=== PATIENT | female | born 1970 | race Caucasian/White ===

== ENCOUNTER → 2017-06-07 15:13 | Outpatient (CLI) | payer OTHER, SELFPAY ==
--- NOTE | 2017-06-07 15:18 | HPBI_ITS ---
MAMMOGRAPHY - BILATERAL SCREENING REASON FOR EXAM: Female, 47 years old. Routine annual screening examination. PERTINENT HISTORY: Non-contributory. TECHNIQUE: Digital bilateral breast shon (3D mammographic acquisition) in the CC and MLO projections. 2-D mediolateral oblique (MLO) and craniocaudad (CC) views of both breasts were obtained. CAD: Full Field Digital Mammography with Computer Added Detection was performed. COMPARISON: Comparison is made with prior study dated October 15, 2015 and October 03, 2014. FINDINGS: Breast Composition: The breasts are heterogeneously dense, which may obscure small masses. Stable appearance of the left retroareolar nodular densities in keeping with cysts as seen on prior sonogram. There now is evidence of a 2.9 cm x 2.4 cm well-defined nodule in the superior retroareolar region of the right breast. Correlation with ultrasound is recommended. No other significant abnormalities are identified. HPBI/SCREENING MAMM (CAD), BILAT IMPRESSION: New nodular density in the right breast as described. Correlation with ultrasound is recommended. ASSESSMENT CATEGORY: BIRADS Category 0: Incomplete. Need additional imaging evaluation. A letter regarding these results will be sent to the patient by the facility within 30 days. Approximately 10% of breast cancers are not detected by mammography. A normal mammogram should not delay biopsy of a clinically suspicious abnormality. [id number] Electronically Signed: Garrett Reed MD at 16:04 EST Tel [phone], Service support ,
== END ==
PROVIDERS: Family Provider Family Medicine; PCP Family Medicine; Visit Provider Nurse Practitioner Women's Health
DX: Z12.31 Encounter for screening mammogram for malignant neoplasm of breast (principal)
CPT/HCPCS: 77063; 77067

== ENCOUNTER → 2017-06-10 11:00 | Outpatient (CLI) | payer OTHER, SELFPAY ==
--- NOTE | 2017-06-10 11:03 | US_ITS ---
STUDY: ULTRASOUND BREAST - RIGHT REASON FOR EXAM: Female, 47 years old. Abnormal screening mammogram. TECHNIQUE: Axial and longitudinal images of the RIGHT breast were performed with a high resolution ultrasound transducer. COMPARISON: Comparison is made with prior study dated June 07, 2017. FINDINGS: RIGHT Breast: 2 cysts are seen. The larger measures 2.7 cm x 2.2 cm x 1.4 cm. The smaller cyst measures 1.4 cm x 1.2 cm x 0.9 cm. US/Breast Limited Unilateral IMPRESSION: The mammographic abnormality corresponds to 2 small adjacent cysts in the retroareolar region. ASSESSMENT CATEGORY: BIRADS Category 2: Benign. A letter regarding these results will be sent to the patient by the facility within 30 days. Electronically Signed: Garrett Reed MD at 12:38 EST Tel [phone], Service support ,
== END ==
PROVIDERS: Family Provider Family Medicine; PCP Family Medicine; Visit Provider Nurse Practitioner Women's Health
DX: N63.41 Unspecified lump in right breast, subareolar (principal)
CPT/HCPCS: 76642

== ENCOUNTER 2017-12-19 12:48 | Observation (INO) | payer OTHER, SELFPAY ==
[2017-12-19] VITALS (21 sets, daily range): BP systolic 105–175; BP diastolic 61–104; PULSE 63–100; RESP 12–19; TEMP 36.6–37; O2SAT 97–100; BMI 20.9; BMI 27.3
--- NOTE | 2017-12-19 12:53 | EKG12_ITS ---
Test Reason : CP Blood Pressure : / mmHG Vent. Rate : 066 BPM Atrial Rate : 066 BPM P-R Int : 154 ms QRS Dur : 092 ms QT Int : 384 ms P-R-T Axes : 043 -02 -08 degrees QTc Int : 402 ms Normal sinus rhythm with sinus arrhythmia Incomplete right bundle branch block T wave abnormality, consider inferior ischemia Abnormal ECG Confirmed by ANDRES LAFLEUR, MAGDALENA ([id number]), photo editor KIERSTEN SECOBAR ([id number]) on 12/21/2017 1:38:47 PM Referred By: LUBNA Confirmed By:MAGDALENA CAMPOS MD
--- NOTE | 2017-12-19 12:55 | RAD_ITS ---
STUDY: X-RAY CHEST REASON FOR EXAM: Female, 47 years old. Chest pain and shortness of breath. TECHNIQUE: Single AP portable view of the chest. COMPARISON: Comparison is made with prior study dated January 23, 2016. FINDINGS: EKG electrodes are seen. The lungs are clear and expanded. There is no demonstrated pleural abnormality. Normal size heart. Normal mediastinum and parul. Normal visualized pulmonary arteries. Normal visualized aortic arch and descending thoracic aorta. Normal visualized thoracic spine. Normal visualized ribs, clavicles, and shoulders. There is no demonstrated abnormality of the visualized soft tissue structures of the upper abdomen. RAD/Chest 1 View (Portable) IMPRESSION: Normal x-ray examination of the chest. Electronically Signed: Garrett Reed MD at 13:27 EDT Tel [phone], Service support ,
[2017-12-19] MEDS: Aspirin 81 MG TAB.CHEW 324 MG PO (13:01)
--- NOTE | 2017-12-19 13:14 | ED.VISSUMM ---
- ER Visit Summary Date of Service: 12/19/17 Chief Complaint: Epigastric and chest pain History of Present Illness: The patient is a 47 F history of ulcerative colitis. Prior cholecystectomy. Patient states the last 2 weeks she has had intermittent chest pain. Associated when she works out doing cross [place]. Starts in epigastric lower chest region radiates up her chest at times in her jaw back and both upper extremities. At times associated with nausea and breath. No prior history of DVT nor PE. No leg pain or swelling. No recent travel, surgery, legs swelling nor hemoptysis. Significant family history of cardiac disease in both her parents and relatives. She has never had a stress test or heart catheterization. Physical Examination: Middle-aged female vital signs are stable blood pressure elevated 175/104. Pulse ox 90% on 2 L no hypoxia. H EENT exam unremarkable neck nontender. Lungs clear to auscultation bilaterally. Heart regular rhythm no murmur. Chest wall nontender. Abdomen soft nontender. Normal bowel sounds no peritoneal signs. Both the epigastric and right upper quadrant completely nontender. She is moving all 4 extremities. They are neurovascularly intact. Calves are nontender without edema or cords. Equal symmetrical radial pulses. 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 Back nontender. Neurologic exam normal. No focal motor deficits. Test Results: Patient will undergo cardiac workup. Initial EKG is a sinus rhythm rate is [address]-T wave changes in the anterior inferior leads with mild depression and T-wave inversion. This is change from prior EKG from 2016. Normal. BMP unremarkable other than slightly low potassium at 3.1. Chest x-ray showed normal cardiac silhouette and mediastinum. Troponin was normal. Repeat EKG was performed after sublingual nitroglycerin it resolved her pain. The inverted T-wave in leads III had normalized. Emergency Department Course and Treatment: Patient's history is concerning for this being underlying cardiac disease with her family history and the way she describes it with exertion. She will be given aspirin and sublingual nitroglycerin. He does have concerning EKG findings in the inferior leads. She will be admitted. I spoke both to Dr. Bry Pelaez and Dr. Jamil Null of cardiology. Both were in the ER evaluating the patient. She will be anticoagulated on Plavix and taken to the [facility]. Treatment Plan: For cardiac catheterization. Disposition: Admission Impression: Acute chest pain with abnormal inferior EKG changes. This note was generated with Sapiens dictation software. It may contain incorrect words, spelling, and punctuation that were not noted in review of the chart prior to signing ED Disposition - Plan for ED Patient: Chief Complaint: Chest Pain
--- NOTE | 2017-12-19 13:17 | ED.DCSUM_ITS ---
- ER Visit Summary Date of Service: 12/19/17 Chief Complaint: Epigastric and chest pain History of Present Illness: The patient is a 47 F history of ulcerative colitis. Prior cholecystectomy. Patient states the last 2 weeks she has had intermittent chest pain. Associated when she works out doing cross [employer]. Starts in epigastric lower chest region radiates up her chest at times in her jaw back and both upper extremities. At times associated with nausea and breath. No prior history of DVT nor PE. No leg pain or swelling. No recent travel, surgery, legs swelling nor hemoptysis. Significant family history of cardiac disease in both her parents and relatives. She has never had a stress test or heart catheterization. Physical Examination: Middle-aged female vital signs are stable blood pressure elevated 175/104. Pulse ox 90% on 2 L no hypoxia. H EENT exam unremarkable neck nontender. Lungs clear to auscultation bilaterally. Heart regular rhythm no murmur. Chest wall nontender. Abdomen soft nontender. Normal bowel sounds no peritoneal signs. Both the epigastric and right upper quadrant completely nontender. She is moving all 4 extremities. They are neurovascularly intact. Calves are nontender without edema or cords. Equal symmetrical radial pulses. Normal fixed income analyst strength. Back nontender. Neurologic exam normal. No focal motor deficits. Test Results: Patient will undergo cardiac workup. Initial EKG is a sinus rhythm rate is [address]-T wave changes in the anterior inferior leads with mild depression and T-wave inversion. This is change from prior EKG from 2016. Normal. BMP unremarkable other than slightly low potassium at 3.1. Chest x- ray showed normal cardiac silhouette and mediastinum. Troponin was normal. Repeat EKG was performed after sublingual nitroglycerin it resolved her pain. The inverted T-wave in leads III had normalized. Emergency Department Course and Treatment: Patient's history is concerning for this being underlying cardiac disease with her family history and the way she describes it with exertion. She will be given aspirin and sublingual nitroglycerin. He does have concerning EKG findings in the inferior leads. She will be admitted. I spoke both to Dr. Bry Pelaez and Dr. Jamli Null of cardiology. Both were in the ER evaluating the patient. She will be anticoagulated on Plavix and taken to the [facility]. Treatment Plan: For cardiac catheterization. Disposition: Admission Impression: Acute chest pain with abnormal inferior EKG changes. This note was generated with Scene[employer]ot dictation software. It may contain incorrect words, spelling, and punctuation that were not noted in review of the chart prior to signing ED Disposition - Plan for ED Patient: Chief Complaint: Chest Pain
[2017-12-19 13:24] LABS: Absolute Lymphocyte Count 0.86 X10^3/ul (0.83-4.51); Absolute Neutrophil Count 3.6 X10^3/uL (2.0-7.7); Anion Gap 9 (5-15); BUN 9 mg/dL (7-18); BUN/Creat Ratio 10.2 RATIO (10-20); Basophil# 0.01 X10^3/uL; Basophil% 0.2 % (0-1); Chloride 105 mmol/L (98-107); Creatinine, Serum 0.88 mg/dL (0.55-1.02); EST Glomerular Filtration Rate 73 mL/min (>60); Eosinophil# 0.06 X10^3/uL; Eosinophils% 1.2 % (0-5); Est Glom Filt Rate - Afr Amer 88 mL/min (>60); Estimated Creatinine Clearance 84.84 ml/min; Glucose 90 mg/dL (74-106); Hematocrit 43.3 % (37-47); Hemoglobin 14.6 g/dl (12.0-15.0); Lymphocyte # 0.86 X10^3/ul (4.0); Lymphocyte % 16.9 % (19-41); Mean Corp Hgb Conc 33.7 g/gl (32-36); Mean Corpuscular Hgb 32.9 pg (27.0-32.0); Mean Corpuscular Volume 97.5 fL (81-99); Mean Platelet Vol. 9.1 fl (6.2-12.0); Monocyte# 0.52 X10^3/uL; Monocyte% 10.2 % (0-10); Neutrophil # 3.62 X10^3/uL (2.7-7.7); Neutrophil % 71.3 % (47-70); Platelet Count 282 K/mm3 (150-450); Potassium 3.1 mmol/L (3.5-5.1); RBC Distribution Width CV 12.8 % (11.6-14.6); RBC Distribution Width SD 45.7 fl (35.1-43.9); Red Blood Count 4.44 M/mm3 (4.2-5.4); Sodium Level 140 mmol/L (136-145); White Blood Count 5.1 K/mm3 (4.4-11.0)
[2017-12-19 13:25] LABS: POSITIVE COUNT NO; POSITIVE DIFFERENTIAL NO; POSITIVE MORPHOLOGY NO
--- NOTE | 2017-12-19 13:30 | EKG12_ITS ---
Test Reason : REPEAT POST NITRO Blood Pressure : / mmHG Vent. Rate : 092 BPM Atrial Rate : 092 BPM P-R Int : 156 ms QRS Dur : 088 ms QT Int : 362 ms P-R-T Axes : 041 -17 029 degrees QTc Int : 447 ms Normal sinus rhythm Minimal voltage criteria for LVH, may be normal variant Borderline ECG Confirmed by ANDRES LAFLEUR, MAGDALENA ([id number]), newspaper editor managing KIERSTEN ESCOBAR ([id number]) on 12/21/2017 1:39:03 PM Referred By: LUBNA Confirmed By:MAGDALENA CAMPOS MD
[2017-12-19] MEDS: Nitroglycerin Oint 1 INCH PACKET TRANSDERM. (14:07)
[2017-12-19] MEDS: Acetaminophen 500 MG Tablet 1000 MG PO (14:10)
--- NOTE | 2017-12-19 14:51 | PCM.CONS.C ---
Reason for Consult Date of Consultation: 12/19/17 Reason for Consultation: Chest pain. History of Present Illness: The patient is a 47 year old F with no previous cardiac history who presented to the emergency room today after she got concerned about the chest discomfort that she has been having over the previous 2 weeks. She says that she has had intermittent chest tightness with occasional radiation to her jaw and left arm. This has happened on at least 2 occasions when she has been exercising on [employer]. She has also on occasion taken an antacid but with no significant improvement. This morning while at work she experienced some of the discomfort had her blood pressure checked and it was noted to be elevated. In addition she was also noted to be flushed. She presented to the emergency room and had an EKG done which was noted to be abnormal she was given sublingual nitroglycerin with a repeat EKG and the EKG had normalized. In addition she was noted to be hypertensive in the ER. She has had no dizziness or diaphoresis no near syncope or syncope no palpitations. Currently she is pain-free. She has not been under any tremendous amount of stress recently. She was scheduled to see me in the office on Tuesday due to the chest discomfort that she had been experiencing. [] Past Medical History Allergies/Adverse Reactions: Allergies Sulfa (Sulfonamide Antibiotics) Allergy (Verified 04/20/17 15:06) Other tramadol HCl [From [facility]] Adverse Reaction (Verified 04/20/17 15:06) Other Home Medications: Ambulatory Orders Medication Instructions Recorded Azathioprine [Imuran] 150 mg PO DAILY@0800 12/19/17 Omeprazole [Prilosec] 20 mg PO DAILY 12/19/17 Surgical History: cholecystectomy Smoking Status: Never smoker Alcohol: Rare Drugs: None Review of Systems - Review of Systems General: Denies: Fever, Night Sweats, Fatigue Cardiovascular: Reports: Chest Discomfort, Chest Discomfort with Exertion, Chest Tightness. Denies: Shortness of Breath, Orthopnea, PND, Peripheral Edema, Palpitations, Lightheadedness, Dizziness, Near Syncope, Syncope Respiratory: Denies: Cough, Sputum Production, Hemoptysis Gastrointestinal: Denies: Hematemesis, Hematochezia, Melena Genitourinary: Denies: Dysuria, Hematuria Skin: Denies: Rash Subjectve: Pleasant lady in no apparent distress Objective: Vital Signs Temp Pulse Resp BP Pulse Ox 97.9 F 90 14 120/97 H 98 12/19/17 12:49 12/19/17 14:07 12/19/17 12:49 12/19/17 14:07 12/19/17 13:00 Oxygen Flow Rate (L/min) 2 Oxygen Delivery Method Nasal Cannula Weight: 149 lb 14.629 oz Body Mass Index (BMI) 20.9 General: Awake, Alert, Oriented x 3 HEENT: PERRL, EOMI, Sclera Non Icteric Neck: Supple, Good ROM, No Lymph Node Enlargement Lungs: Clear to auscultation Cardiovascular: Regular Rhythm, Normal S1, Normal S2, No Murmurs, No Rubs, No Gallops Vascular: No Carotid Bruits, Normal Femoral Pulses, Normal Radial Pulses, Normal Dorsalis Pedal Pulse, Normal Posterior Tibial Pulses Abdomen: Bowel Sounds Present, Soft, Non Tender, No HSM, No Organomegaly Extremities: No Cyanosis, No Clubbing, No edema Neurological: No Focal Motor or Sensory Deficit 12/19/17 12:30: WBC 5.1, RBC 4.44, Hgb 14.6, Hct 43.3, MCV 97.5, MCH 32.9 H, MCHC 33.7, RDW 12.8, RDW Differential 45.7 H, Plt Count 282, MPV 9.1, Immature Gran % (Auto) 0.200, Neut % (Auto) 71.3 H, Lymph % (Auto) 16.9 L, Dewey % (Auto) 10.2 H, Eos % (Auto) 1.2, Baso % (Auto) 0.2, Absolute Neuts (auto) 3.6, Total Counted Not Reportable 12/19/17 12:30: Sodium 140, Potassium 3.1 L, Chloride 105, Carbon Dioxide 26.0, Anion Gap 9, BUN 9, Creatinine 0.88, Est GFR (MDRD) Af Amer 88, Est GFR (MDRD) Non-Af 73, BUN/Creatinine Ratio 10.2, Glucose 90, Calcium 9.0, Troponin I < 0.015 Rhythm: EKG: Normal sinus rhythm with T-wave inversions noted in lead III and aVF, followed by an EKG demonstrating normal sinus rhythm with no acute changes. Assessment/Plan 1. Chest pain/new onset angina Patient presents with chest pain which is concerning for angina. This has happened with exertion and also with rest. Even though there have been periods of hypertension associated with his the EKG changes are rather concerning. She does not have any risk factors other than her family history. Due to the above findings I would recommend that the patient be further evaluated preferably with a cardiac catheterization rather than a stress test. The risk benefits and alternatives have been explained to her and her they understand and agreed to proceed. I would recommend the following. Aspirin 325 mg Ticagrelor 180 mg Will recommend early invasive approach to the above and depending on the findings further recommendations will be made. Thank you for allowing me to participate in the care of your patient. Please don't hesitate to call if any issues arise
--- NOTE | 2017-12-19 14:54 | NURSING ---
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
--- NOTE | 2017-12-19 14:55 | CON.PCM_ITS ---
Reason for Consult Date of Consultation: 12/19/17 Reason for Consultation: Chest pain. History of Present Illness: The patient is a 47 year old F with no previous cardiac history who presented to the emergency room today after she got concerned about the chest discomfort that she has been having over the previous 2 weeks. She says that she has had intermittent chest tightness with occasional radiation to her jaw and left arm. This has happened on at least 2 occasions when she has been exercising on [employer]. She has also on occasion taken an antacid but with no significant improvement. This morning while at work she experienced some of the discomfort had her blood pressure checked and it was noted to be elevated. In addition she was also noted to be flushed. She presented to the emergency room and had an EKG done which was noted to be abnormal she was given sublingual nitroglycerin with a repeat EKG and the EKG had normalized. In addition she was noted to be hypertensive in the ER. She has had no dizziness or diaphoresis no near syncope or syncope no palpitations. Currently she is pain- free. She has not been under any tremendous amount of stress recently. She was scheduled to see me in the office on Tuesday due to the chest discomfort that she had been experiencing. [] Past Medical History Allergies/Adverse Reactions: Allergies Sulfa (Sulfonamide Antibiotics) Allergy (Verified 04/20/17 15:06) Other tramadol HCl [From [facility]] Adverse Reaction (Verified 04/20/17 15:06) Other Home Medications: Ambulatory Orders Medication Instructions Recorded Azathioprine [Imuran] 150 mg PO DAILY@0800 12/19/17 Omeprazole [Prilosec] 20 mg PO DAILY 12/19/17 Surgical History: cholecystectomy Smoking Status: Never smoker Alcohol: Rare Drugs: None Review of Systems - Review of Systems General: Denies: Fever, Night Sweats, Fatigue Cardiovascular: Reports: Chest Discomfort, Chest Discomfort with Exertion, Chest Tightness. Denies: Shortness of Breath, Orthopnea, PND, Peripheral Edema , Palpitations, Lightheadedness, Dizziness, Near Syncope, Syncope Respiratory: Denies: Cough, Sputum Production, Hemoptysis Gastrointestinal: Denies: Hematemesis, Hematochezia, Melena Genitourinary: Denies: Dysuria, Hematuria Skin: Denies: Rash Subjectve: Pleasant lady in no apparent distress Objective: Vital Signs Temp Pulse Resp BP Pulse Ox 97.9 F 90 14 120/97 H 98 12/19/17 12:49 12/19/17 14:07 12/19/17 12:49 12/19/17 14:07 12/19/17 13:00 Oxygen Flow Rate (L/min) 2 Oxygen Delivery Method Nasal Cannula Weight: 149 lb 14.629 oz Body Mass Index (BMI) 20.9 General: Awake, Alert, Oriented x 3 HEENT: PERRL, EOMI, Sclera Non Icteric Neck: Supple, Good ROM, No Lymph Node Enlargement Lungs: Clear to auscultation Cardiovascular: Regular Rhythm, Normal S1, Normal S2, No Murmurs, No Rubs, No Gallops Vascular: No Carotid Bruits, Normal Femoral Pulses, Normal Radial Pulses, Normal Dorsalis Pedal Pulse, Normal Posterior Tibial Pulses Abdomen: Bowel Sounds Present, Soft, Non Tender, No HSM, No Organomegaly Extremities: No Cyanosis, No Clubbing, No edema Neurological: No Focal Motor or Sensory Deficit 12/19/17 12:30: WBC 5.1, RBC 4.44, Hgb 14.6, Hct 43.3, MCV 97.5, MCH 32.9 H, MCHC 33.7, RDW 12.8, RDW Differential 45.7 H, Plt Count 282, MPV 9.1, Immature Gran % (Auto) 0.200, Neut % (Auto) 71.3 H, Lymph % (Auto) 16.9 L, Cedar % (Auto) 10.2 H, Eos % (Auto) 1.2, Baso % (Auto) 0.2, Absolute Neuts (auto) 3.6, Total Counted Not Reportable 12/19/17 12:30: Sodium 140, Potassium 3.1 L, Chloride 105, Carbon Dioxide 26.0, Anion Gap 9, BUN 9, Creatinine 0.88, Est GFR (MDRD) Af Amer 88, Est GFR (MDRD) Non-Af 73, BUN/Creatinine Ratio 10.2, Glucose 90, Calcium 9.0, Troponin I < 0.015 Rhythm: EKG: Normal sinus rhythm with T-wave inversions noted in lead III and aVF, followed by an EKG demonstrating normal sinus rhythm with no acute changes. Assessment/Plan 1. Chest pain/new onset angina Patient presents with chest pain which is concerning for angina. This has happened with exertion and also with rest. Even though there have been periods of hypertension associated with his the EKG changes are rather concerning. She does not have any risk factors other than her family history. Due to the above findings I would recommend that the patient be further evaluated preferably with a cardiac catheterization rather than a stress test. The risk benefits and alternatives have been explained to her and her they understand and agreed to proceed. I would recommend the following. * Aspirin 325 mg * Ticagrelor 180 mg * Will recommend early invasive approach to the above and depending on the findings further recommendations will be made. * * Thank you for allowing me to participate in the care of your patient. Please don't hesitate to call if any issues arise
--- NOTE | 2017-12-19 15:10 | CASEMGMT ---
According to [facility] website, the following are in-network tertiary facilities: [facility], [facility], [facility], [facility], [facility], [facility], [facility], [facility], and . Ana CLOUD CM
[2017-12-19 15:17] LABS: Internal QC Validated? YES +Cl - CLEAR BKGD; Pregnancy, Urine Negative Negative
--- NOTE | 2017-12-19 15:43 | CL.D_ITS ---
Patient Name: ABDIEL RICHARDSON Study Date: 12/19/2017 Performing: Bry Pelaez MD Ht: 70.86 inches 180 cm : 1970 Wt: 149.91 lbs 68 kg Age: 47 Gender: female BSA: 1.86 PROCEDURE(S) PERFORMED [id number]/COR/LV [id number] W OR WO PTCA, SINGLE CORONARY ARTERY CLINICAL PROFILE AND INDICATIONS Indications: ACS <= 24 hrs Heart Failure: None Stress/Imaging Stress/Image Study Performed: No Angina Classification Anginal Classification w/in 2 Weeks: CCS III CAD Presentations: Unstable angina. 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 Left circumflex artery with proximal 40% stenosis. RECOMMENDATIONS Referred for immediate PCI DESCRIPTION OF PROCEDURE The patient arrived to the procedure lab. The risks and benefits of the procedure as well as a full d escription of our services here and current unavailability of surgical backup were fully explained to the patient and/or their significant other prior to the catheterization. The Timeout was completed, verifying the correct patient and procedure. The patient's procedural site was prepped and draped in the usual fashion. Local anesthetic was given subcutaneously to right groin region with Lidocaine 2%. Using a modified Seldinger technique, arterial access was obtained via the right femoral artery, a 5 Fr sheath was inserted. Left Coronary Artery selective angiography was performed in multiple views u sing a 5 Fr. JL4 catheter. Right Coronary Artery selective angiography was then performed in multiple views using a 5 Fr. 3DRC (Ian) catheter. Left Ventriculography was performed in MANRIQUEZ projection using a 5 Fr. Pigtail catheter. CORONARY ANGIOGRAPHY DOMINANCE: Right Dominant LEFT HEART ASSESSMENT Left Ventricular Ejection Fraction: by LV Gram 60 % Normal LV wall motion Normal Left Ventricular systolic function LEFT MAIN: Angiographically normal LEFT ANTERIOR DECENDING ARTERY: MID LAD: 90 % Stenosis, Moderate luminal irregularities up to 50% CIRCUMFLEX ARTERY: PROX CIRC: 40 % Stenosis RIGHT CORONARY ARTERY: No significant disease noted COMPLICATIONS PROCEDURE MEDICATIONS Versed 1 mg IV Fentanyl 50 mcg IV Fentanyl 25 mcg IV Fentanyl 25 mcg IV Oxygen: 2 L/min via nasal cannula Brilinta 180 mg PO @ 12/19/2017 15:05:04 Heparin 6000 unit(s) IV 12/19/2017 15:35:06 Nitro 200 mcg IC 12/19/2017 15:37:18 Nitro 200 mcg IC 12/19/2017 15:37:18 Potassium Chloride 40 mEq PO 12/19/2017 15:13:20 SUMMARY OF HEMODYNAMIC DATA Time AIR REST ECG 15:04:22 AO 136/89 (110) SA 15:18:00 LV 134/6, 8 15:24:00 LV 160/-13, 25 15:25:01 LVp 153/-11, 26 15:25:10 AOp 161/89 (121) 15:25:15 Signed By Bry Pelaez MD On 12/19/2017 15:43:58 Signed By Bry Pelaez MD On 12/19/2017 15:43:23 Bry Pelaez MD
--- NOTE | 2017-12-19 16:20 | CL.I_ITS ---
Patient Name: ABDIEL RICHARDSON Study Date: 12/19/2017 Performing: Pop Null MD Ht: 70.86 inches 180 cm : 1970 Wt: 149.91 lbs 68 kg Age: 47 Gender: female BSA: 1.86 PROCEDURE(S) PERFORMED PM81-AAS W OR WO PTCA, SINGLE CORONARY ARTERY CLINICAL PROFILE AND CO-MORBIDITIES Indications: ACS <= 24 hrs, ACS <= 24 hrs, Worsening Angina, Suspected CAD Heart Failure: None Stress/Imaging Stress/Image Study Performed: No Stress/Image Study Performed: No Angina Classification Anginal Classification w/in 2 Weeks: CCS III CAD Presentations: Unstable angina. Unstable angina. Comorbidities/Risk Factors: Hypertension Dyslipidemia Family History of Premature CAD CONCLUSIONS Successful PTCA/JAMIE of the of mid LAD with a 2.25 x 38 Promus Synergy, post dilated in the mid/prox p ortion with a 2.5 and 3.0 mm NC balloon; 85%-->0%, no dissection or encroachment into LCX or DIAG#3. RECOMMENDATIONS Highly recommend quitting all tobacco products Follow up with primary tmr teacher Risk factor modification ASA Indefinitley Routine post interventional care Refer for Outpatient Cardiac Rehab Manual sheath removal per protocol Follow up with Dr. Latanya Valdes for at least 12 months If pt develops lower GI bleeding despite maximal medical therapy, would prefer an minimum of 6 months of DAPT due to length and small diameter of Promus stent. Manual sheath removal due to thin size. DESCRIPTION OF PROCEDURE The patient arrived to the procedure lab. The risks and benefits of the procedure as well as a full d escription of our services here and current unavailability of surgical backup were fully explained to the patient and/or their significant other prior to the catheterization. The Timeout was completed, verifying the correct patient and procedure. The patient's procedural site was prepped and draped in the usual fashion. Local anesthetic was given subcutaneously to right groin region with Lidocaine 2% Using a modified Seldinger technique,arterial access was obtained via the right femoral artery, a 5Fr sheath was inserted. Left Coronary Artery selective angiography was performed in multiple views usin g a 5 Fr. JL4 catheter. Right Coronary Artery selective angiography was then performed in multiple vi ews using a 5 Fr. 3DRC (Ian) catheter. Left Ventriculography was performed in MANRIQUEZ projection usi ng a 5 Fr. Pigtail catheter.The images were reviewed and options discussed. A decision was then made to proceed with an Intervention, IVUS or other adjunct procedure. Arterial sheath was exchanged for a 6 Fr Sheath. EBU 3.5 Guide catheter was inserted and engaged into the LCA. BMW Guide wire was advanced to the LAD. 2.0 x 12 Emerge Balloon catheter was advanced acros s lesion in the LAD, mid. PTCA balloon inflated at 8 atms for 11 secs. PTCA balloon inflated at 8 arianne s for 8 secs. PTCA balloon inflated at 8 atms for 9 secs. PTCA balloon inflated at 10 atms for 7 secs . Angiogram performed post balloon dilatation. 2.25 x 38 Synergy Drug Eluting stent was advanced acro ss the lesion in the LAD, mid. Post stent, balloon catheter was inserted 2.5 x 12 NC Emerge PTCA ball oon inflated at 12 atms for 10 secs. PTCA balloon inflated at 12 atms for 8 secs. PTCA balloon inflat ed at 14 atms for 10 secs. Angiogram performed post stent deployment. Post stent, balloon catheter wa s inserted 3.0 x 8 NC Emerge PTCA balloon inflated at 8 atms for 9 secs. PTCA balloon inflated at 12 atms for 8 secs. PTCA balloon inflated at 12 atms for 8 secs. PTCA balloon inflated at 14 atms for 10 secs. Angiogram performed post stent deployment. PTCA balloon inflated at 12 atms for 8 secs. Angiog janneth performed post stent deployment. The arterial sheath was sutured in place and capped INTERVENTION INFORMATION LESION SITE: LAD (Mid) Lesion Complexity: High/C, lesion at bifurcation: Yes, thrombus present: No, culprit lesion: Yes, les ion length: 38 mm Pre Stenosis: 85 % Pre intervention AQUILINO flow: 3 PROCEDURE: Drug Eluting Stent with pre and post dilatation Post Stenosis: 0 % Post intervention AQUILINO flow: 3 Lesion Devices: Phillips .014 BMW [place] Straight 190cm Tyler Sci EMERGE MR 2.00x12 BALLOON Medtronic 6 Fr EBU3.5 100cm Guide Catheter Tyler Sci Synergy MR JAMIE 2.25x38 Tyler Sci NC EMERGE MR 2.50x12 BALLOON Tyler Sci NC EMERGE MR 3.00x08 BALLOON COMPLICATIONS No Complications PROCEDURE MEDICATIONS Versed 1 mg IV Fentanyl 50 mcg IV Fentanyl 25 mcg IV Fentanyl 25 mcg IV Oxygen: 2 L/min via nasal cannula Brilinta 180 mg PO @ 12/19/2017 15:05:04 Heparin 6000 unit(s) IV 12/19/2017 15:35:06 Nitro 200 mcg IC 12/19/2017 15:37:18 Nitro 200 mcg IC 12/19/2017 15:37:18 Nitro 200 mcg IC 12/19/2017 15:41:46 Nitro Paste 1 in 12/19/2017 16:07:00 Potassium Chloride 40 mEq PO 12/19/2017 15:13:20 IV Fluids: .9 NaCl increased to wide open ml/hr 12/19/2017 15:31:46 IV Fluids: .9 NaCl decreased to kvo ml/hr 12/19/2017 16:03:44 IV Fluids: .9 NaCl total fluids given during case was 750ml 12/19/2017 16:03:52 SUMMARY OF HEMODYNAMIC DATA Time AIR REST ECG 15:04:22 AO 136/89 (110) SA 15:18:00 LV 134/6, 8 15:24:00 LV 160/-13, 25 15:25:01 LVp 153/-11, 26 15:25:10 AOp 161/89 (121) 15:25:15 AO 134/81 (102) 15:43:43 16:10:22 Signed By Pop Null MD On 12/19/2017 16:19:26 Pop Null MD
[2017-12-19 16:51] LABS: ACT Activated Clotting Time 224 sec (74-137)
--- NOTE | 2017-12-19 16:52 | EKG12_ITS ---
Test Reason : Blood Pressure : / mmHG Vent. Rate : 071 BPM Atrial Rate : 071 BPM P-R Int : 170 ms QRS Dur : 090 ms QT Int : 400 ms P-R-T Axes : 053 001 060 degrees QTc Int : 434 ms Normal sinus rhythm Normal ECG When compared with ECG of 19-DEC-2017 16:42, MANUAL COMPARISON REQUIRED, DATA IS UNCONFIRMED Confirmed by ANDRES LAFLEUR, MAGDALENA ([id number]), editor publications KIERSTEN ESCOBAR ([id number]) on 12/21/2017 2:06:43 PM Referred By: KEY Confirmed By:MAGDALENA CAMPOS MD
[2017-12-19] MEDS: 0.9% Normal Saline 1,000 ML 150 ML IV (17:06)
[2017-12-19 17:50] LABS: ACT Activated Clotting Time 169 sec (74-137)
[2017-12-19] MEDS: Acetaminophen 325 MG Tablet 650 MG PO (19:01)
[2017-12-19] MEDS: Atorvastatin Calcium 80 MG Tablet PO (21:41)
[2017-12-19] MEDS: Carvedilol 3.125 MG TABLET PO (21:41)
[2017-12-19] MEDS: TICAGRELOR 90 MG TABLET PO (21:41)
[2017-12-19] MEDS: Temazepam 15 MG Capsule PO (21:41)
[2017-12-19 21:56] LABS: CPK Total, Creatine Kinase 70 U/L (26-192)
[2017-12-20] VITALS (12 sets, daily range): BP systolic 104–132; BP diastolic 66–81; PULSE 71–83; RESP 13–16; TEMP 36.6–36.9; O2SAT 95–100
[2017-12-20 05:27] LABS: Hematocrit 38.3 % (37-47); Hemoglobin 13.1 g/dl (12.0-15.0); Mean Corp Hgb Conc 34.2 g/gl (32-36); Mean Corpuscular Hgb 33.1 pg (27.0-32.0); Mean Corpuscular Volume 96.7 fL (81-99); Mean Platelet Vol. 8.8 fl (6.2-12.0); Platelet Count 257 K/mm3 (150-450); RBC Distribution Width CV 12.5 % (11.6-14.6); RBC Distribution Width SD 42.9 fl (35.1-43.9); Red Blood Count 3.96 M/mm3 (4.2-5.4); Scan Indicated on CBC? Y/N NO; White Blood Count 5.6 K/mm3 (4.4-11.0)
[2017-12-20 05:42] LABS: Anion Gap 9 (5-15); BUN 8 mg/dL (7-18); BUN/Creat Ratio 12.4 RATIO (10-20); Calcium,Total 8.2 mg/dL (8.5-10.1); Chloride 110 mmol/L (98-107); Cholesterol 162 mg/dL (200); Creatinine, Serum 0.65 mg/dL (0.55-1.02); EST Glomerular Filtration Rate 104 mL/min (>60); Est Glom Filt Rate - Afr Amer 126 mL/min (>60); Estimated Creatinine Clearance 80.74 ml/min; Glucose 100 mg/dL (74-106); High Density Lipoprotein 43 mg/dL; Potassium 4.2 mmol/L (3.5-5.1); Sodium Level 141 mmol/L (136-145); Triglycerides 115 mg/dL; Very Low Density Lipoprotein 23 mg/dL (5-40)
[2017-12-20] MEDS: Aspirin E.C. 81 MG Tablet PO (07:44)
--- NOTE | 2017-12-20 07:47 | PCM.DC.CCA ---
Discharge Diet: No Restrictions - You may continue your normal diet., Low fat/ Low Cholesterol Lifting Restrictions: 10 pounds and also avoid any pushing or pulling for 3 days after your test. Additional Activity Instructions:: You must have someone drive you home. Do not drive until instructed by your doctor. You must have someone stay with you all night after your test. Rest in bed or on the couch until the next morning. Limit the number of times you go up and down stairs the day of your test. Apply pressure to the puncture site if you sneeze or cough. Call your doctor if your incision/area has: Increased Pain/ Swelling, Increased Redness, Foul Smelling Discharge, Swelling at the incision site Call your doctor if you observe: Fever of 101 or Higher Change Dressing in (Days):: 1 Remove Dressing in (days):: 2 Cleanse incision/area with: Keep Dressing Clean & Dry Additional Dressing/Incision Instructions:: Keep the dressing (bandage) on until the next morning. You may then shower, but do not take a tub bath for 5 days after your test. It is normal to have some tenderness and discomfort at the puncture site. Sometimes bruising also occurs. However, if pain, numbness, or coldness occurs below the puncture site (in your leg, toes, arms or fingers) call your doctor at once. You may have a small, marble sized knot at the puncture site. This is normal. Do not rub it. It will go away in 4-6 weeks. Bleeding can occur from the area where the puncture was done. Blood may spurt or drip from the site. If blood spurts, apply pressure right away to stop bleeding and call 911. Although rare, bleeding into the tissue (hematoma) can also occur. If this happens, a large, firm area goose egg under the skin will appear. If any of these occur, lie down as flat as you can and have someone apply firm pressure to the cath site with a gauze pad or a clean washcloth for 10-15 minutes. Call 911 or go to the Emergency Department. Allergies/Adverse Reactions: Allergies Sulfa (Sulfonamide Antibiotics) Allergy (Verified 04/20/17 15:06) Other tramadol HCl [From Ultram] Adverse Reaction (Verified 04/20/17 15:06) Other Medications to take at Discharge Azathioprine [Imuran] 150 mg PO DAILY@0800 12/19/17 Omeprazole [Prilosec] 20 mg PO DAILY 12/19/17 Aspirin E.C. [Ecotrin] 81 mg PO DAILY@0800 tablet 12/20/17 Atorvastatin Calcium [Lipitor] 80 mg PO QHS tablet 12/20/17 Metoprolol(XL)Succ [Toprol Xl (Beta Edison)] 25 mg PO DAILY tablet 12/20/17 Ticagrelor [Brilinta] 90 mg PO BID tablet 12/20/17 Primary Care Physician: Kenzie Torrez DO [Primary Care Provider] - Test Results: Test results from this visit will be discussed in further detail at your follow-up appointment, if applicable. When: follow up in jacey Keri vanceиван Proposed Discharge Date: 12/20/17 Cardiac Rehabilitation Info Cardiac Rehabilitation Program Information: Cardiac Rehabilitation is important for patients like you who are recovering from a heart problem. Cardiac rehabilitation programs are recognized as integral to the continued care of the patient with coronary heart disease. The cardiac rehabilitation program is designed to optimize a patient's physical, psychological, and social functioning. Health home care nurse work in cardiac rehabilitation programs and assist you with getting the treatments you need to get stronger and healthier - like exercise, healthy eating habits, and medications. Cardiac rehabilitation has been show to help people with heart problems live longer and have better life enjoyment than people who do not go to cardiac rehabilitation. Please contact the Cardiac Rehabilitation Program at [facility] at in two weeks if you have not heard from them.
--- NOTE | 2017-12-20 07:49 | PCM.PN.CARD ---
Subjectve: Patient seen and evaluated and appears to be doing well. No chest pain and no groin discomfort. Objective: Vital Signs Temp Pulse Resp BP Pulse Ox 98.5 F 75 16 119/74 98 12/20/17 04:00 12/20/17 06:00 12/20/17 06:00 12/20/17 06:00 12/20/17 06:00 Oxygen Delivery Method Room Air Weight: 144 lb 9.972 oz Body Mass Index (BMI) 27.3 Intake and Output for Last 24 Hours 12/18/17 12/19/17 12/20/17 23:59 23:59 23:59 Intake Total 1463 / 1463 Output Total 1300 / 1300 Balance 60 163 / 163 General: Awake, Alert, Oriented x 3 HEENT: PERRL, EOMI, Sclera Non Icteric Neck: Supple, Good ROM, No Lymph Node Enlargement Lungs: Clear to auscultation Cardiovascular: Regular Rhythm, Normal S1, Normal S2, No Murmurs, No Rubs, No Gallops Vascular: No Carotid Bruits, Normal Femoral Pulses, Normal Radial Pulses, Normal Dorsalis Pedal Pulse, Normal Posterior Tibial Pulses Abdomen: Bowel Sounds Present, Soft, Non Tender, No HSM, No Organomegaly Extremities: No Cyanosis, No Clubbing, No edema Neurological: No Focal Motor or Sensory Deficit 12/20/17 05:20: Sodium 141, Potassium 4.2, Chloride 110 H, Carbon Dioxide 22.0, Anion Gap 9, BUN 8, Creatinine 0.65, Est GFR (MDRD) Af Amer 126, Est GFR (MDRD) Non-Af 104, BUN/Creatinine Ratio 12.4, Glucose 100, Calcium 8.2 L, Triglycerides 115, Cholesterol 162, LDL Cholesterol 96, VLDL Cholesterol 23, HDL Cholesterol 43 12/20/17 05:20: WBC 5.6, RBC 3.96 L, Hgb 13.1, Hct 38.3, MCV 96.7, MCH 33.1 H, MCHC 34.2, RDW 12.5, RDW Differential 42.9, Plt Count 257, MPV 8.8 Rhythm: EKG: ECHO: Stress Test: Cardiac Cath: PCI: CT Surgery: Holter monitor: EPS: PPM: CXR: Chest CT Scan: Medical Necessity - Tobacco Use Smoking Status: Never smoker Assessment/Plan 1. Chest pain. Patient presented with chest pain noted to be unstable angina and underwent a cardiac catheterization. It demonstrated a proximal high-grade left anterior descending artery lesion and mild disease noted in the circumflex artery. She successfully underwent angioplasty and stenting of the left anterior descending artery with a drug-eluting stent. Postoperatively she has been doing well. Sheath removal was that incident. EKG this morning appears to be normal sinus rhythm with no acute changes and laboratory tests are normal. Plan on discharging patient to go home on current medications. Follow-up in my office in a week. Would start cardiac rehabilitation.
[2017-12-20] MEDS: Metoprolol(XL)Succ 25 MG Tablet PO (08:46)
[2017-12-20] MEDS: TICAGRELOR 90 MG TABLET PO (08:46)
--- NOTE | 2017-12-20 10:00 | EKG12_ITS ---
Test Reason : CP Blood Pressure : / mmHG Vent. Rate : 061 BPM Atrial Rate : 061 BPM P-R Int : 158 ms QRS Dur : 088 ms QT Int : 404 ms P-R-T Axes : 039 -09 036 degrees QTc Int : 406 ms Normal sinus rhythm Normal ECG When compared with ECG of 19-DEC-2017 13:47, MANUAL COMPARISON REQUIRED, DATA IS UNCONFIRMED Confirmed by ANDRES LAFLEUR, MAGDALENA ([id number]), supervising editor news reel KIERSTEN ESCOBAR ([id number]) on 12/21/2017 2:11:05 PM Referred By: ANDRES Confirmed By:MAGDALENA CAMPOS MD
--- NOTE | 2017-12-21 08:44 | CRPHASE1 ---
Patient Data/Charges Provider Relations Specialist:: Bry Pelaez Surgeon:: Pop Null Phase II Referral:: [facility] Risk Factors/Lifestyle Family History: Family History (Last Updated 04/20/17 @ 15:08 by Maisha Gomez) Father Heart disease Mother Heart disease Laboratory Values: Cardiac Rehab Phase I Labs Triglycerides 115 mg/dL (-199) 12/20/17 05:20 Cholesterol 162 mg/dL (200) 12/20/17 05:20 LDL Cholesterol 96 mg/dL (0-130) 12/20/17 05:20 HDL Cholesterol 43 mg/dL (40-) 12/20/17 05:20 Phase I Education Given On:: [place], Nutrition, Antiplatelet medication, CHF, Smoking cessation, Diabetes - Type I, Diabetes - Type II Issues Affecting Care:: None Knowledge of Condition:: Yes - pt called at home. 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
--- NOTE | 2017-12-21 08:46 | CRPH1.INSTRU ---
General Education CAD and cardiac anatomy and function:: Not instructed Explanation of diagnoses and procedures:: Not instructed Sign/Symptoms of NV:: Not instructed Antiplatelet therapy: Not instructed Proper use of NTG-SL: Not instructed Emergency procedures and activation of EMS: Not instructed Compliance of all prescribed medications: Not instructed - pt called at home. Pt to pickk up CR book 12/23 Smoking Nicotine/Smoking Response Code:: Not instructed Dyslipidemia Dyslipidemia Response Code:: Not instructed Overweight/Obesity Patient Overweight/Obesity Risk Factors Are:: BMI Normal [24-29 & > 65 years old] Overweight/Obesity:: Not instructed Hypertension Patient Hypertension Risk Factors Are:: No documented hx of HTN Hypertension:: Not instructed Heart Disease Patient Heart Disease Risk Factors Are:: Family history of heart disease < 65 years old Heart Disease Response Code:: Patient communicates acknowledgment Diabetes Patient Diabetes Risk Factors Are:: No documented hx of diabetes Diabetes:: Not instructed Metabolic Syndrome Metabolic Syndrome Response Code:: Not instructed Sedentary Sedentary Response Code:: Not instructed
--- NOTE | 2017-12-21 08:49 | CRPH1.INST_ITS ---
General Education CAD and cardiac anatomy and function:: Not instructed Explanation of diagnoses and procedures:: Not instructed Sign/Symptoms of GA:: Not instructed Antiplatelet therapy: Not instructed Proper use of NTG-SL: Not instructed Emergency procedures and activation of EMS: Not instructed Compliance of all prescribed medications: Not instructed - pt called at home. Pt to pickk up CR book 12/23 Smoking Nicotine/Smoking Response Code:: Not instructed Dyslipidemia Dyslipidemia Response Code:: Not instructed Overweight/Obesity Patient Overweight/Obesity Risk Factors Are:: BMI Normal [24-29 & > 65 years old ] Overweight/Obesity:: Not instructed Hypertension Patient Hypertension Risk Factors Are:: No documented hx of HTN Hypertension:: Not instructed Heart Disease Patient Heart Disease Risk Factors Are:: Family history of heart disease < 65 years old Heart Disease Response Code:: Patient communicates acknowledgment Diabetes Patient Diabetes Risk Factors Are:: No documented hx of diabetes Diabetes:: Not instructed Metabolic Syndrome Metabolic Syndrome Response Code:: Not instructed Sedentary Sedentary Response Code:: Not instructed
== END 2017-12-20 09:04 | disposition home or self-care (01) ==
LOC: ED 13:08 → CLSP 14:45 → ICU 15:50
PROVIDERS: Internal Medicine Cardiovascular Disease; Admitting Provider Internal Medicine Cardiovascular Disease; Emergency Provider Emergency Medicine; Family Provider Family Medicine; PCP Family Medicine; Visit Provider Internal Medicine Cardiovascular Disease
DX: I20.0 Unstable angina (principal); R94.31 Abnormal electrocardiogram [ECG] [EKG]; K51.90 Ulcerative colitis, unspecified, without complications; Z82.49 Family history of ischemic heart disease and other diseases of the circulatory system; I10 Essential (primary) hypertension; E78.5 Hyperlipidemia, unspecified; Z79.899 Other long term (current) drug therapy
CPT/HCPCS: 71045; 80048; 80061; 81025; 82550; 84484; 85025; 85027; 85347; 92928; 93005; 93458; 96360; 96361; 99152; 99153; 99218; 99283; J7030; J7040; Q9967; A4216; C1725; C1769; C1874; C1887; C9600; G0378

== ENCOUNTER → 2018-01-06 14:22 | Outpatient (CLI) | payer OTHER, SELFPAY ==
--- NOTE | 2018-01-06 14:31 | CR.ITP_ITS ---
General Information - General Information Admitting Diagnosis: PCI w/ stent - Education/Goals Barriers to Learning: None Individual Counseling: Initial Assessment: Abnormal Cholesterol Levels, High Blood Pressure, Hypertension Cardiac Rehabilitation Goals: 1. Maintain the individual as the primary focus of care. 2. To improve the patient's quality of life. 3. Identification of cardiac risk factors and provide cardiac risk factor management. 4. Enhance the psychosocial status of the patient. 5. Reconditioning enough to allow the patient to resume customary activities. 6. Control symptoms of cardiac disease Scale for measuring improvement of personal goals: Enter appropriate number in Comments. 2 = Unchanged. 3 = Slightly Better. 4 = Moderate Improvement. 5 = Met my Goal Personal Goals: Initial Assessment: Improve management of stress and emotions, Participate in home exercise program, Improve diet and eating habits (eat healthier), Control risk factors (learn risk factor modification), Other goal: - resume crossfit exercise as before Exercise - Initial Assessment - Visit Date of Eval: 01/06/18 - Established ITP; start on 01/09/2018 Session #:: 0 - Stages of Change Stages of Change:: Action - Exercise Prescription Mode:: Treadmill, Rower, Airdyne, NuStep Angina with exercise?: No Target Heart Rate:: 129-138 - Hypertension Do any of the following apply?: Yes, Medication, Diet Resting Blood Pressure:: 98/46 - Intervention Home Exercise/Activity Goal:: Moderate Exercise 30 min/day x 5 days/wk - Patient desires to return to cross-fit exercise program. - Education Goals:: Warm-up, RPE RANDAL Scale, S/S, Safe Exercise, Self-Monitoring Nutrition - Initial Assessment - Program Goals Nutrition Program Goals: LDL <70. Total Cholesterol <200. HDL >45. Triglycerides <150. HgbA1C <7%. BMI <25 - Visit Date of Assessment:: 01/06/18 - Stages of Change Stages of Change:: Action - Diabetes Diabetes:: No Do you monitor your blood sugar at home?: No - Weight Management Height: 5 ft 1 in Weight:: 138 lb Body Fat %:: 26 - Intervention Referral to dietitian:: No Referral to Diabetic Clinic:: No Will attend diet classes:: Yes - Education Gave educational materials for:: Healthy eating Tobacco - Initial Assessment - Program Goals Tobacco Program Goals: Complete smoking cessation. Attend education classes. Improve Knowledge Test score - Stage of Change Stages of Change:: Action - Learning Barriers Learning Barriers: Ready to Learn - Family Support Do you have family support?: Yes - Tobacco Use Tobacco Use: Non-smoker Do you use smokeless tobacco?: No - Intervention Smoking Cessation Referral:: No Individual Education/Counseling:: No Education Schedule Given:: Yes - Education Gave educational material for:: Coronary artery disease, Risk factors, Sexuality, Medical compliance, Cardiac A&P, Angina signs & symptoms Psychosocial - Initial Assess - Target Goals Target Goals: Assess presence or absence of depression. Using a valid screening tool, maximizes coping skills. Positive support system - Stages of Change Stages of Change:: Action - Psychosocial Test Tool Used:: HANDS Depression Questionnaire Self-reported stress:: work stress; over last 6 months or so that has improved. - Intervention PS - Interventions: Yes Attend Stress Management Classes, Yes Uses Stress Management Skills, No Referral to Mental Health, No Referral to [facility] Case Management, No Referral to Physician - Education Gave educational materials for:: Coping techniques, Signs & symptoms of depression, Stress management, Relaxation techniques - Patient/Program Goal Preventative Medication(s):: Aspirin, SARAH inhibitor, Clopidogrel, Beta malik, Statin/lipid - Assistive Devices Assistive Devices:: None Fall Risk Assessed:: Yes Patient Health Questionnaire Initial Assessment 1. Little interest or pleasure in doing things: Not at all 2. Feeling down, depressed, or hopeless: Not at all 3. Trouble falling or staying asleep, or sleeping too much: Not at all 4. Feeling tired or having little energy: Not at all 5. Poor appetite or overeating: Not at all 6. Feeling bad about yourself -- or that you are a failure or have let yourself or your family down: Not at all 7. Trouble concentrating on things, such as reading the newspaper or watching television: Not at all 8. Moving or speaking so slowly that other people could have noticed. Or the opposite - being so fidgety or restless that you have been moving around a lot more than usual: Not at all 9. Thoughts that you would be better off , or of hurting yourself in some way: Not at all How difficult have these problems made it for you to do your work, take care of things at home, or get along with other people?: Not difficult at all Total Score: 0 DYLAN-Q SV Test - Statements CAD is a disease of the arteries in the heart: False Examples of risk factors for heart disease: True Angina is chest pain or discomfort: True The benefits of resistance training include: True Eating more meat and dairy products: False Anti-platelet medications such as aspirin are important: True The only effective way to manage stress: False An exercise warm-up slowly increases heart rate: True Prepared, processed foods usually have high sodium: True Depression is common after a heart attack: True The statin medications lower cholesterol: True To control blood pressure, lower the amount of sodium: True If someone gets chest discomfort during walking: False Transfats are partially hydrogenated vegetable oils: False Sleep apnea that is not treated increases the risk: False To control cholesterol, one should become a vegetarian: False Someone knows if he/she is exercising at the right level: True Diabetes cannot be prevented with exercise & health eating: False Stress is a large risk for heart attack: True A diet that can help lower blood pressure is rich in: True - Total Score Total Correct Responses: 19 Self-Efficacy Initial Assessment We would like to know how confident you are in doing certain activities. Please select your confidence level for:: Select your confidence level for the following using the scale 1-10 where 1 is not at all confident and 10 is totally confident. Your score is the average of all 6 responses. Fatigue: How confident are you that you can keep the fatigue caused by your disease from interfering with the things you want to do? Select Number: 10 Physical Discomfort or Pain: How confident are you that you can keep the physical discomfort or pain of your disease from interfering with the things you want to do? Select Number: 10 Emotional Distress: How confident are you that you can keep the emotional distress caused by your disease from interfering with the things you want to do? Select Number: 10 Other Symptoms or Health Problems: How confident are you that you can keep other symptoms or health problems from interfering with the things you want to do? Select Number: 10 Different Tasks and Activities: How confident are you that you can do the different tasks and activities needed to manage your health condition so as to reduce your need to see a doctor? Select Number: 10 Medication: How confident are you that you can do things other than just taking medication to reduce how much your illness affects your everyday life? Select Number: 10 Total Score:: 10 Nutrition Survey - Nutrition Survey Instructions Scoring Instructions: Scoring is as follows: Yes = 1 points. No = 0 point. Patient score that is >/=12 is considered to be at potential nutritional risk and could benefit from a referral to a registered dietitian. - Nutrition Survey Initial Have you lost >10 lbs over the past 2 months without trying?: No Are you following a special diet at home for diabetes, low fat, or low salt?: Yes Are you interested in meeting with a dietitian for help understanding your diet?: No Do you eat less than 3 meals a day?: No Do you eat fatty meats (hawkins, sausage, ribs, etc), fried foods, desserts, large amounts of salad dressings, margarine, butter, or cheese most days?: No Do you have food allergies? [Enter types in comment field]: No Do you eat in restaurants more than 3 times a week?: No Do you season food with salt, seasoning salt, or garlic salt?: No Do you used canned, boxed, frozen meals, or soups, seasoning packets?: No Total Score:: 1
--- NOTE | 2018-01-06 14:36 | CR.HP_ITS ---
CR - History & Physical - History of Present Cardiac Event Onset Date: Enter Onset Date of cardiac illnesses in Comment field below Acute Myocardial Infarction within 12 months:: Yes - 12/19/2017 PTCA or coronary stenting:: Yes - 12/19/2017 Type of Symptoms:: classic symptoms occured at work she had been experiencing at home. came to ER and symptoms resolved with Nitro as well as EKG changes resolved. - Medications Home Medications: Ambulatory Orders Medication Instructions Recorded Omeprazole [Prilosec] 20 mg PO DAILY 12/19/17 Atorvastatin Calcium [Lipitor] 80 mg PO QHS tab 12/20/17 Metoprolol(XL)Succ [Toprol Xl 25 mg PO DAILY tab 12/20/17 (Beta Edison)] Ticagrelor [Brilinta] 90 mg PO BID tab 12/20/17 aspirin 81 mg tablet,delayed 81 mg PO DAILY #90 tab 12/23/17 release aspirin 81 mg tablet,delayed 325 mg PO DAILY@0800 tab 12/23/17 release azathioprine 50 mg tablet 150 mg PO DAILY@0800 12/23/17 lisinopril 5 mg tablet 5 mg PO DAILY #90 tab 12/23/17 - Allergies Allergies/Adverse Reactions: Allergies Sulfa (Sulfonamide Antibiotics) Allergy (Verified 12/23/17 14:17) Other tramadol HCl [From [facility]] Adverse Reaction (Verified 12/23/17 14:17) Other - Sleep Disorder Evaluation Hx of Sleep Apnea: No Do you snore loudly (louder than talking or can be heard through closed doors)?: No Do you often feel tired/ fatigued/ sleepy during daytime?: No Has anyone observed you stop breathing during sleep?: No History of Hypertension (for STOP score): No STOP Results: Negative Advanced Directives - Advanced Directives Power of Research Environmental Scientist: No Living Will: No Advance Directives Information Provided: Yes Advance Directives on File: No DNR Order?:: No - MOLST See MOLST form: No Past Medical History - Past Medical Illness Medical History: Past Medical History (Last Reviewed 12/23/17 @ 14:36 by Bry Pelaez MD) Hypertension (Chronic) I10 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 (Acute) I25.119 PCI-JAMIE-Mid LAD w/ 2.25 x 38 Promus Synergy 12/19/17 History of colitis Z87.19 - Past Surgical History Surgical History: Past Surgical History (Last Reviewed 12/23/17 @ 14:36 by Bry Pelaez MD) History of coronary artery stent placement (Acute) Onset Date: 12/19/17 Z95.5 PCI-JAMIE-Mid LAD w/ 2.25 x 38 Promus Synergy 12/19/17 gallbladder surgery Surgical History: cholecystectomy - Family History Summary Family History: Family History (Last Updated 01/06/18 @ 14:35 by Regan Carcamo, HEART SURGEON, MEDICAL GRADE SHOEMAKER, BS) Father Heart disease Mother Heart disease Other grandparents history of heart disease Social History - Smoking History Smoking Status: Never smoker Hx Tobacco Use: No Hx Smoking Exposure: Yes - secondary smoking exposure as child. - Alcohol Use Alcohol Usage: Yes - occasionally; social choose mostly wine or mixed drinks. 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 Left click = Reports ([place]) Review of Present Symptoms: Reports: Dizziness/Lightheadedness - occasionally get some dizziness or lightheadedness, probably less now than before the stent., Appetite - Normal, Appetite - Special Diet - yes; low sugar super low no added sugar, low carb adn healthier carbs, cut our red meats., Sleep - Normal. Denies: Shortness of Breath at Rest, Shortness of Breath with Exertion, Angina - less and less twinges that said was normal response to stent., Fatigue, Heart Arrhythmia/Irregularities, Sexual Changes - Pain Is Patient Pain Free?: Yes Pain Location: none, back - old injury in lower back sciatic pain but nothing hasn't been able to handle. Risk Factor Assessment - Chief Complaint Chief Complaint: Patient is a 47 yr old female who presents to cardiac rehab following recent NSTEMI and PCI intervention which occured at work. She states she has been able to resume her normal activities with no symptoms at this time. - Vital Signs Temperature: 98.7 F Respiratory Rate: 14 Pulse Ox: 97 - Pulse Pulse Rate: 83 Pulse Rhythm: Regular - Hypertension How long have you been treated?: 12/19/17 Blood Pressure Sitting - Left Arm: 96/48 - Stress Stress: Work-related - last 6 months has been so much better. - Diabetes Nutrition Referral for Diabetes: No - Obesity Height: 5 ft 1 in Weight:: 138 lb Weight in Pounds: 138.0 lbs Weight Source: Standing Scale Body Mass Index (BMI): 26.0 Nutritional Referral for Obesity: No - Physical Inactivity Physical Inactivity: Reg Exercise 30 min/day, Physically demanding job - Risk Stratification Risk Guidelines: Lowest Risk: Risk Factor for Smoking, Risk Factor for Dyslipidemia, Risk Factor for Diabetes, Risk Factor for Obesity, Risk Factor for Hypertension, Risk Factor for Sedentary Lifestyle, Risk Factor for Depression - For Smoking Smoking Risk Guidelines: Smoking Low Risk: None or quit greater than 6 months ago. Smoking Moderate Risk: Smoker or quit 6 months or less ago. Smoking High Risk: Smoker - For Dyslipidemia Dyslipidemia Risk Guidelines: Low Risk: Moderate Risk: High Risk: 15-25% fat 25.1-29% fat >/= 30% fat. <7% sat fat 7-9% sat fat >9% sat fat. <150 mg chol 150-299 mg chol >/= 300 mg chol. LDL <100 LDL 100-129 LDL >/= 130. Chol/HDL ratio <5.0 Chol/HDL ratio 5.0-6.0 Chol/HDL ratio >6.0. Triglycerides <100 Triglycerides 100-149 Triglycerides >/= 150 - For Diabetes Mellitus Diabetes Risk Guidelines: Diabetes Low Risk: HgA1c <6.5% and/or FBG <120. Diabetes Moderate Risk: HgA1c 6.6-7.9% and/or FBG 120-180. Diabetes High Risk: HgA1c >/= 8% and/or FBG >180 - For Obesity/Overweight Obesity/Overweight Risk Guidelines: Obesity Low Risk: BMI <25.0. Obesity Moderate Risk: BMI 25-29.9. Obesity High Risk: BMI >/= 30.0 - For Hypertension Hypertension Risk Guidelines: Hypertension Low Risk: Systolic <120 and Diastolic <80. Hypertension Moderate Risk: Systolic 120-139 and Diastolic 80-89. Hypertension High Risk: Systolic >/= 140 and Diastolic >/= 90 - For Sedentary Lifestyle Sedentary Lifestyle Risk Guidelines: Sedentary Lifestyle Low Risk: >/= 1,500 kcal/week. Sedentary Lifestyle Moderate Risk: 700-1,499 kcal/week. Sedentary Lifestyle High Risk: < 700 kcal/week - For Depression Depression Risk Guidelines: Depression Low Risk: Not clinically depressed. Depression Moderate Risk: Mildly depressed. Depression High Risk: Clinically depressed - Family History Family History: Family History (Last Updated 01/06/18 @ 14:35 by Regan Carcamo, HEART SURGEON, MEDICAL GRADE SHOEMAKER, BS) Father Heart disease Mother Heart disease Other grandparents history of heart disease Motivation - Motivation to Participate On a scale of 1 to 10, how prepared are you to commit to attending program?: 10 What do you see as barriers to successfully being able to complete the program?: work schedule and meetings What do you see as the benefits of succesfully completing the program? In other words, what do you hope to get out of participating in the program?: being able to get back to normal routine, cross-fit exercise. Are there issues you are dealing with that will interfere with completing the program?: none Do you have a spouse or signficant other, family or friends who will help support you to complete the program?: oh yeah.
[2018-01-06 14:47] VITALS: BP 96/48; PULSE 83; RESP 14; TEMP 37.1; O2SAT 97; BMI 26.0
[2018-01-06 15:16] VITALS: BP 98/46
== END ==
PROVIDERS: Family Provider Family Medicine; PCP Family Medicine; Referring Provider Internal Medicine Cardiovascular Disease; Visit Provider Internal Medicine Cardiovascular Disease
DX: I25.119 Atherosclerotic heart disease of native coronary artery with unspecified angina pectoris (principal); I10 Essential (primary) hypertension; Z87.19 Personal history of other diseases of the digestive system; Z95.5 Presence of coronary angioplasty implant and graft; Z79.82 Long term (current) use of aspirin; Z79.899 Other long term (current) drug therapy

== ENCOUNTER 2018-01-10 07:11 | Day surgery (SDC) | payer OTHER, SELFPAY ==
[2018-01-10] VITALS (8 sets, daily range): BP systolic 90–114; BP diastolic 50–80; PULSE 80–92; RESP 14–16; TEMP 36.6–37.6; O2SAT 94–99; BMI 24.5
--- NOTE | 2018-01-10 | IMM_PTH ---
PATIENT: ABDIEL RICHARDSON LOC: EN U#:[id number] AGE/SX: 48/F ROOM: RE01/10/[address]: Dr. Jacob Tiwari MD : 1970 BED: DIS: 01/10/2018 SPEC #: [id number] RECD: 01/12/18 09:12 STATUS: JONATHAN REMima #: [id number] ADRIANNA: 01/10/18 00:[address]: Jacob Tiwari DEPT: IMMUNOHISTOCHEMISTRY RECD BY: Umm Farnsworth ENTERED: 01/12/18 09:12 SP TYPE: IMMUNO OTHR DR: Dr. Kenzie Torrez, DO Tissues: B - Stomach, NOS C - Stomach, NOS Procedures: H Pylori (initial) PHYSICIAN & INSTITUTION [place] [id number] SPECIMEN INFORMATION: Tissue Source: B - Antrum biopsy, C - Body of stomach biopsy Clinical Info: Epigastric pain Specimen Number: [id number] B & C CPT code: 05549 x2 METHODOLOGY: Deparaffinized sections of prefer/formalin-fixed tissue or PAP/DQ stained slides are incubated with monoclonal/polyclonal antibodies/oligonucleotide probes. Localization is made via biotin free immunoperoxidase method. Appropriate controls are performed and reacted as expected. Results on target cell population are indicated in the following table: RESULTS: ANTIBODY / CLONE RESULT Block B H Pylori (polyclonal) negative Block C H Pylori (polyclonal) negative These tests were developed and their performance characteristics determined by [facility]. They may not have been cleared or approved by the U.S. Food and Drug Administration. The FDA has determined that such clearance or approval is not necessary. INTERPRETATION: B. Antrum, biopsy: Negative for Helicobacter pylori organisms. C. Body of stomach, biopsy: Negative for Helicobacter pylori organisms. SJ:bethany 01/12/18
[2018-01-10 07:33] LABS: Erythrocyte Sedimentation Rate 8 mm/hr (0-20)
[2018-01-10 07:40] LABS: Absolute Neutrophil Count 4.2 X10^3/uL (2.0-7.7); Basophil# 0.02 X10^3/uL; Basophil% 0.4 % (0-1); Differential Indicated SCAN CRITERIA MET; Eosinophil# 0.32 X10^3/uL; Eosinophils% 6.3 % (0-5); Hematocrit 40.8 % (37-47); Hemoglobin 14.3 g/dl (12.0-15.0); Lymphocyte % 5.9 % (19-41); Mean Corpuscular Volume 96.9 fL (81-99); Mean Platelet Vol. 9.3 fl (6.2-12.0); Monocyte# 0.29 X10^3/uL; Monocyte% 5.7 % (0-10); Neutrophil # 4.16 X10^3/uL (2.7-7.7); Neutrophil % 81.7 % (47-70); POSITIVE COUNT NO; POSITIVE DIFFERENTIAL YES; POSITIVE MORPHOLOGY NO; Platelet Count 271 K/mm3 (150-450); RBC Distribution Width CV 12.7 % (11.6-14.6); Red Blood Count 4.21 M/mm3 (4.2-5.4); White Blood Count 5.1 K/mm3 (4.4-11.0)
[2018-01-10 07:48] LABS: ALB/GLOB Ratio 1.1 RATIO (0.9-2.4); AST(SGOT) 59 U/L (15-37); Alanine Aminotransfer ALT/SGPT 53 U/L (13-56); Albumin, Serum 4.2 g/dL (3.2-5.0); Alkaline Phosphatase 131 U/L (45-117); Anion Gap 9 (5-15); BUN 9 mg/dL (7-18); Calcium,Total 9.3 mg/dL (8.5-10.1); Chloride 103 mmol/L (98-107); Creatinine, Serum 0.82 mg/dL (0.55-1.02); EST Glomerular Filtration Rate 79 mL/min (>60); Est Glom Filt Rate - Afr Amer 96 mL/min (>60); Globulin 3.8 g/dL (2.2-4.2); Glucose 113 mg/dL (74-106); Lipase 80 U/L (73-393); Potassium 3.9 mmol/L (3.5-5.1); Sodium Level 139 mmol/L (136-145)
[2018-01-10 08:51] LABS: White Blood Cells 0 SEEN /hpf (0-5)
[2018-01-10 08:52] LABS: Color, Urine Yellow (Yellow); Glucose, Dipstick Normal (Normal); Ketone-Dipstick 5 mg/dl (Negative); Leukocyte Esterase-Dipstick 25 /ul (Negative); Nitrite-Dipstick Negative (Negative); Occult Blood-Urine 25 /ul (Negative); Protein-Dipstick 15 mg/dl (Negative); Specific Gravity, Urine 1.015 (1.002-1.030); Urine Bilirubin Dipstick Negative (Negative); Urine Clarity Sl. Cloudy (Clear); Urine Urobilinogen 1 mg/dl (Normal)
[2018-01-10 08:59] LABS: Bacteria RARE /hpf (None Seen); Mucous, Urine RARE /hpf (<or=2+); Red Blood Cells-Urine 0-5 SEEN /hpf (0-5); Squamous Epithelial Cells - UA 0-5 SEEN /hpf (5-10)
--- NOTE | 2018-01-10 11:30 | EGD_PTH ---
PATIENT: ABDIEL RICHARDSON LOC: EN U#:[id number] AGE/SX: 48/F ROOM: RE01/10/[address]: Dr. Jacob Tiwari MD : 1970 BED: DIS: 01/10/2018 SPEC #: [id number] RECD: 01/10/18 15:17 STATUS: JONATHAN YOKO #: [id number] ADRIANNA: 01/10/18 11:[address]: Jacob Tiwari DEPT: SURGICAL PATHOLOGY RECD BY: Holger Charles ENTERED: 01/11/18 10:10 SP TYPE: EGD BIOPSY OTHR DR: Dr. Kenzie Torrez DO Tissues: A - Duodenum, NOS B - Gastric mucous membrane C - Gastric mucous membrane D - Esophagus, NOS Procedures: Special Stain Group II Surgery Specimen Level IV Alcian Blue/PAS (control) HEADER OPERATION: EGD PRE-OP DIAGNOSIS: Epigastric pain TISSUE SUBMITTED: A. Duodenal biopsy, B. Antrum biopsy for H. pylori and path, C. Body of stomach biopsy, D. Distal esophagus biopsy MICROSCOPIC DIAGNOSIS A. 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 B. Antrum, biopsy: Mild gastritis. See microscopic description and comment. C. Body of stomach, biopsy: Mild gastritis. See microscopic description and comment. D. Distal esophagus, biopsy: Fragments of gastroesophageal mucosa with chronic inflammation. Intestinal metaplasia (goblet cell metaplasia) is not identified. See comment. SJ:bethany 01/12/18 COMMENT B & C. The results of immunohistochemistry for Helicobacter pylori will be reported separately ([id number]). D. Alcian blue/PAS stain with matched control is used in the evaluation of the specimen. MICROSCOPIC DESCRIPTION Slides are reviewed. B & C. The specimen shows fragments of gastric mucosa with chronic inflammatory cell infiltrates in the lamina propria consisting of lymphocytes and plasma cells, consistent with mild chronic gastritis. GROSS DESCRIPTION A - Received in fixative is one container labeled with the patient's name and designated duodenal biopsy. The specimen consists of two irregular fragments of light gann soft tissue that in aggregate measure 0.6 x 0.3 x 0.1 cm. The specimen is totally submitted in one cassette. B - Received in fixative is one container labeled with the patient's name and designated antrum biopsy for H. pylori. The specimen consists of one irregular fragment of light gann soft tissue that measures 0.5 x 0.3 x 0.1 cm. The specimen is totally submitted in one cassette. C - Received in fixative is one container labeled with the patient's name and designated body of stomach biopsy. The specimen consists of one irregular fragment of light gann soft tissue that measures 0.5 x 0.4 x 0.1 cm. The specimen is totally submitted in one cassette. D - Received in fixative is one container labeled with the patient's name and designated distal esophagus biopsy. The specimen consists of two irregular fragments of light gann soft tissue that in aggregate measure 0.5 x 0.5 x 0.1 cm. The specimen is totally submitted in one cassette. / SJ:rg 01/11/18 TC:3 [facility]: [id number] x4, [id number]
--- NOTE | 2018-01-10 11:36 | HP.PCM_ITS ---
Problem List (1) Abdominal pain Status: Acute Qualifiers: Abdominal location: epigastric Qualified Code(s): R10.13 - Epigastric pain History of Present Illness Date of Admission: 01/10/18 The patient is a 48 year old F who on December 19, 2017 had epigastric pain thought it was possibly abdomen but then developed chest pain was noted to have critical coronary ischemia underwent urgent coronary catheterization and janeth nting. It is of note that the patient has a long-term history of ulcerative colitis for which she is on Imuran. Over the past couple weeks prior to her urgent heart procedure she was having nondescript abdominal pain cramping. She is not been having any bright red blood. Today she presented to work with fever or chilling onset of yesterday. It is unclear as to whether her epigastric pain is part of this phenomena or separate phenomena. Over the weekend the patient tried eating and would have severe fiery pain in the epigastrium. She has been placed on aspirin and Brilinta and she placed herself on omeprazole. Despite this she is not improved. Today she is feeling very ill nauseated with epigastric pain. Laboratory was obtained demonstrating a normal white blood cell count and normal hemoglobin. There is a slight left shift with 81 per 10 segs. A nasal flu swab was obtained that was negative. Urinalysis was not remarkable. Liver function tests slightly abnormal with slightly abnormal total bilirubin and AST nonspecific. Lipase was normal. Erythrocyte sedimentation rate was normal. The patient states however she is absolutely unable to eat or drink due to this fiery epigastric pain. At this point having performed a clinical examination and review of information I believe that is pertinent to perform an upper endoscopy for diagnosis Past Medical History Past Medical History (Chronic Problems): Chronic Problems (Last Reviewed 12/23/17 @ 14:36 by Bry Pelaez MD) Hypertension (Chronic) Medical History: Medical History (Last Reviewed 12/23/17 @ 14:36 by Bry Pelaez MD) Hypertension (Chronic) I10 Atherosclerosis of coronary artery of [place] heart with angina pectoris (Acute) I25.119 PCI-JAMIE-Mid LAD w/ 2.25 x 38 Promus Synergy 12/19/17 History of colitis Z87.19 Allergies Sulfa (Sulfonamide Antibiotics) Allergy (Verified 12/23/17 14:17) Other tramadol HCl [From [facility]] Adverse Reaction (Verified 12/23/17 14:17) Other Home Medications: Ambulatory Orders Medication Instructions Recorded Omeprazole [Prilosec] 20 mg PO DAILY 12/19/17 Atorvastatin Calcium [Lipitor] 80 mg PO QHS tab 12/20/17 Metoprolol(XL)Succ [Toprol Xl 25 mg PO DAILY tab 12/20/17 (Beta Edison)] Ticagrelor [Brilinta] 90 mg PO BID tab 12/20/17 aspirin 81 mg tablet,delayed 81 mg PO DAILY #90 tab 12/23/17 release lisinopril 5 mg tablet 5 mg PO DAILY #90 tab 12/23/17 Acetaminophen [Tylenol] 650 mg PO X1 PRN 01/10/18 Azathioprine [Imuran] 150 mg PO DAILY@0800 01/10/18 Surgical History: Surgical History (Last Reviewed 12/23/17 @ 14:36 by Bry Pelaez MD) History of coronary artery stent placement (Acute) Onset Date: 12/19/17 Z95.5 PCI-JAMIE-Mid LAD w/ 2.25 x 38 Promus Synergy 12/19/17 gallbladder surgery Surgical History: cholecystectomy Smoking Status: Never smoker Review of Systems Constitutional: Reports: Chills, Fever HEENT: Reports: Dysphasia Cardiovascular: Denies: Chest Pain Respiratory: Denies: Cough, Hemoptysis Gastrointestinal: Reports: Abdominal Pain. Denies: Hematemesis, Hematochezia Genitourinary: Denies: Dysuria Psychiatric: Denies: Anxiety Endocrine: Denies: Change in Body Habitus VTE Information - Inpt Only VTE Present on Admission: No Patient Problems: Active and Suspected Problems (Last Reviewed 12/23/17 @ 14:36 by Bry Pelaez MD) Abdominal pain (Acute) - Physical Exam General: Alert, Oriented x3, - - Patient appears uncomfortable HEENT: Atraumatic Oral: Moist Mucosa Neck: Supple Lungs: Clear to auscultation Cardiovascular: Regular rate, Regular Rhythm Abdomen: Bowel Sounds Present, Tender - Tender in the epigastrium Extremities: No clubbing Lymphatic: No Cervical, Supraclavicular, or Inguinal Adenopathy Psych/Mental Status: Normal Affect Vital Signs Temp Pulse Resp BP Pulse Ox 99.6 F H 86 16 114/80 98 01/10/18 10:10 01/10/18 10:10 01/10/18 10:10 01/10/18 10:10 01/10/18 10:10 Oxygen Delivery Method Room Air Weight: 130 lb Body Mass Index (BMI) 24.5 Microbiology Past 72 Hours 01/10/18 08:58 Influenza Types A,B Direct FA (CARMEN) - Final Mucosa - Nose Laboratory Tests Past 24 Hrs 01/10/18 01/10/18 01/10/18 07:14 07:14 08:45 WBC 5.1 RBC 4.21 Hgb 14.3 Hct 40.8 MCV 96.9 MCH 34.0 H MCHC 35.0 RDW 12.7 RDW Differential 44.0 H Plt Count 271 MPV 9.3 Immature Gran % (Auto) 0.000 Neut % (Auto) 81.7 H Lymph % (Auto) 5.9 L [place] % (Auto) 5.7 Eos % (Auto) 6.3 H Baso % (Auto) 0.4 Absolute Neuts (auto) 4.2 Absolute Lymphs (auto) 0.30 L Total Counted Not Reportable ESR 8 Sodium 139 Potassium 3.9 Chloride 103 Carbon Dioxide 27.0 Anion Gap 9 BUN 9 Creatinine 0.82 Est GFR (MDRD) Af Amer 96 Est GFR (MDRD) Non-Af 79 BUN/Creatinine Ratio 11.0 Glucose 113 H Calcium 9.3 Total Bilirubin 1.10 H AST 59 H ALT 53 Alkaline Phosphatase 131 H Total Protein 8.0 Albumin 4.2 Globulin 3.8 Albumin/Globulin Ratio 1.1 Lipase 80 Urine Color Yellow Urine Clarity Sl. Cloudy Urine pH 6.0 Ur Specific [place] 1.015 Urine Protein 15 H Urine Glucose (UA) Normal Urine Ketones 5 H Urine Occult Blood 25 H Urine Nitrite Negative Urine Bilirubin Negative Urine Urobilinogen 1 H Ur Leukocyte Esterase 25 H Urine RBC 0-5 SEEN Urine WBC 0 SEEN Ur Squamous Epith Cells 0-5 SEEN Urine Bacteria RARE Urine Mucus RARE Assessment/Plan All Active Problems (Last Reviewed 12/23/17 @ 14:36 by Bry Pelaez MD) Abdominal pain (Acute) History of coronary artery stent placement (Acute 12/19/17) Atherosclerosis of coronary artery of [place] heart with angina pectoris (Acute) Laboratory was not eventful other than minimal elevation of LFTs. I recommend a esophagogastroduodenoscopy with possible biopsy. Because of the patient's recent cardiac history we will perform this with monitored anesthesia care. The patient is aware of the technique, benefits, risks, alternatives. We will proceed urgently to try to facilitate diagnosis and care. Jacob Tiwari M.D., F.A.C.S.
[2018-01-10 11:51] LABS: Internal QC Validated? YES +Cl - CLEAR BKGD; Pregnancy, Urine Negative Negative
--- NOTE | 2018-01-10 12:04 | OP.ENDO_ITS ---
Patient Name: Amalia Reyes Procedure Date: 01/10/2018 11:35 AM Date of : 1970 Age: 48 Procedure: Upper GI endoscopy Indications: Epigastric abdominal pain Providers: Jacob Tiwari MD Referring MD: Jacob Tiwari MD Medicines: See the Anesthesia note for documentation of the administered medications Complications: No immediate complications. Procedure: Pre-Anesthesia Assessment: - Prior to the procedure, a History and Physical was performed, and patient medications and allergies were reviewed. The patient's tolerance of previous anesthesia was also reviewed. The risks and benefits of the procedure and the sedation options and risks were discussed with the patient. All questions were answered, and informed consent was obtained. Prior Anticoagulants: The patient has taken aspirin, last dose was 1 day prior to procedure. [ASA Grade]. After reviewing the risks and benefits, the patient was deemed in satisfactory condition to undergo the procedure. - Prior to the procedure, a History and Physical was performed, and patient medications and allergies were reviewed. The patient's tolerance of previous anesthesia was also reviewed. The risks and benefits of the procedure and the sedation options and risks were discussed with the patient. All questions were answered, and informed consent was obtained. Prior Anticoagulants: The patient Brilinta. ASA Grade Assessment: II - A patient with mild systemic disease. After reviewing the risks and benefits, the patient was deemed in satisfactory condition to undergo the procedure. After obtaining informed consent, the endoscope was passed under direct vision. Throughout the procedure, the patient's blood pressure, pulse, and oxygen saturations were monitored continuously. The gastroscope was introduced through the mouth, and advanced to the second part of duodenum. The upper GI endoscopy was accomplished with ease. The patient tolerated the procedure well. Scope In: 11:46:41 AM Scope Out: 11:53:10 AM Total Procedure Duration Time 0 hours 6 minutes 29 seconds Findings: The examined esophagus was normal. Biopsies were taken with a cold forceps for histology. The Z-line was regular and was found 38 cm from the incisors. Diffuse mildly erythematous mucosa without bleeding was found in the stomach. Biopsies were taken with a cold forceps for histology. The examined duodenum was normal. Biopsies were taken with a cold forceps for histology. Impression: - Normal esophagus. Biopsied at EG junction - Z-line regular, 38 cm from the incisors. - Erythematous mucosa in the stomach. Biopsied. Bile noted within stomach. - Normal examined duodenum. Biopsied. Recommendation: - Await pathology results. - Resume previous diet. - Continue present medications. - Resume aspirin today at prior dose. - Telephone my office for pathology results in 1 week. - Use sucralfate tablets 1 gram PO QID today. Possible bile gastritis Procedure Code(s): --- Professional --- 96980, Esophagogastroduodenoscopy, flexible, transoral; with biopsy, single or multiple Diagnosis Code(s): --- Professional --- K31.89, Other diseases of stomach and duodenum R10.13, Epigastric pain CPT copyright 2017 [employer]. All rights reserved. The codes documented in this report are preliminary and upon paste up worker review may be revised to meet current compliance requirements. Jacob Tiwari MD 01/10/2018 12:03:25 PM This report has been signed electronically. Number of Addenda: 0 Note Initiated On: 01/10/2018 11:35 AM
--- NOTE | 2018-01-10 12:18 | EKG12_ITS ---
Test Reason : Blood Pressure : / mmHG Vent. Rate : 080 BPM Atrial Rate : 080 BPM P-R Int : 164 ms QRS Dur : 096 ms QT Int : 366 ms P-R-T Axes : 058 -12 077 degrees QTc Int : 422 ms Normal sinus rhythm Normal ECG When compared with ECG of 20-DEC-2017 05:28, No significant change was found Confirmed by ANDRES LAFLEUR, MAGDALENA ([id number]), restaurant expeditor KIERSTEN ESCOBAR ([id number]) on 01/16/2018 3:52:52 PM Referred By: Jacob Tiwari Confirmed By:MAGDALENA CAMPOS MD
[2018-01-10] MEDS: Sucralfate 1 GM Tablet PO (12:40)
== END 2018-01-10 13:35 | disposition home or self-care (01) ==
LOC: LAB 08:29 → EN 08:32 → AC 08:35
PROVIDERS: Family Provider Family Medicine; PCP Family Medicine; Referring Provider Surgery; Visit Provider Surgery
PROC: 0DJ08ZZ Inspection of Upper Intestinal Tract, Via Natural or Artificial Opening Endoscopic (ICD-10-PCS; CPT 43235; principal; 2018-01-10 11:25)
DX: K29.70 Gastritis, unspecified, without bleeding (principal); K31.89 Other diseases of stomach and duodenum; I10 Essential (primary) hypertension; I25.119 Atherosclerotic heart disease of native coronary artery with unspecified angina pectoris; K51.90 Ulcerative colitis, unspecified, without complications; K21.9 Gastro-esophageal reflux disease without esophagitis; Z87.19 Personal history of other diseases of the digestive system; Z95.5 Presence of coronary angioplasty implant and graft; Z90.49 Acquired absence of other specified parts of digestive tract; Z79.82 Long term (current) use of aspirin; Z79.899 Other long term (current) drug therapy
CPT/HCPCS: 43239; 36415; 80053; 81001; 81025; 83690; 85025; 85652; 87804; 88305; 88313; 88342; 93005; J7120

== ENCOUNTER → 2018-01-11 16:55 | Outpatient (CLI) | payer OTHER, SELFPAY ==
--- NOTE | 2018-01-11 16:58 | RAD_ITS ---
STUDY: X-RAY CHEST REASON FOR EXAM: Female, 48 years old. Fever. TECHNIQUE: PA and lateral views of the chest. COMPARISON: January 23, 2016 FINDINGS: The lungs are clear and expanded. There is no demonstrated pleural abnormality. Normal size heart. Normal mediastinum and parul. Normal visualized pulmonary arteries. Normal visualized aortic arch and descending thoracic aorta. Normal visualized thoracic spine. Normal visualized ribs, clavicles, and shoulders. There is no demonstrated abnormality of the visualized soft tissue structures of the upper abdomen. RAD/Chest PA and Lateral IMPRESSION: Normal x-ray examination of the chest. There is no interval change. Electronically Signed: Rowdy Evans DO at 18:56 EDT Tel [phone], Service support ,
--- NOTE | 2018-01-11 16:58 | CT_ITS ---
STUDY: CT ABDOMEN AND PELVIS WITH CONTRAST REASON FOR EXAM: Female, 48 years old. Fever. Chills. Epigastric pain for 2 weeks. RADIATION DOSAGE (If Supplied By Facility): CTDIvol = ( 9.32 ) mGy, DLP = ( 397.09 ) mGycm TECHNIQUE: Transaxial images were obtained from the dome of the diaphragm to the symphysis pubis with oral contrast. 100ML ml of Isovue 300 contrast was administered. Sagittal and coronal images were reconstructed. Individualized dose optimization techniques were used for this CT. COMPARISON: Pelvic ultrasound, September 12, 2013. FINDINGS: The visualized lung bases are unremarkable. The visualized portions of the heart are within normal limits. Normal liver. There are surgical clips in the gallbladder fossa consistent with a prior cholecystectomy. Normal spleen. There is fatty replacement of the pancreas without visualized mass. Normal bilateral adrenal glands. Normal right kidney. Normal left kidney. Normal visualized stomach. Normal small intestine. Normal colon. The appendix is visualized and appears normal. There is minimal atherosclerotic changes of the abdominal aorta without aneurysm or dissection. Normal inferior vena cava. Normal retroperitoneum. Normal urinary bladder. The uterus is retroverted. There is an IUD in satisfactory position within the fundus. Normal adnexa. There is no pelvic lymphadenopathy. No free air or free fluid is seen within the peritoneal cavity. There is a small umbilical hernia of omental fat. The abdominal wall is otherwise unremarkable. There is minimal anterolisthesis of L4 and L5 without pars defects. There is minimal associated disc degeneration. CT/Abdomen/Pelvis WITH Contrast IMPRESSION: 1. No evidence for acute intra-abdominal or pelvic process. 2. Prominent uterus without focal mass. 3. IUD in satisfactory position. 4. Minimal degenerative changes on the lumbar spine. Electronically Signed: Rowdy Evans DO at 19:16 EDT Tel [phone], Service support ,
[2018-01-11 18:01] LABS: AST(SGOT) 135 U/L (15-37); Alanine Aminotransfer ALT/SGPT 127 U/L (13-56); Alkaline Phosphatase 193 U/L (45-117); Bilirubin, Direct 0.28 mg/dL (0.00-0.30); Cholesterol 80 mg/dL (200); Globulin 4.1 g/dL (2.2-4.2); High Density Lipoprotein 30 mg/dL; Protein, Total 8.1 g/dL (6.4-8.2); Triglycerides 85 mg/dL; Very Low Density Lipoprotein 17 mg/dL (5-40)
== END ==
PROVIDERS: Family Provider Family Medicine; PCP Family Medicine; Referring Provider Internal Medicine Cardiovascular Disease; Visit Provider Internal Medicine Cardiovascular Disease
DX: R50.9 Fever, unspecified (principal); I25.119 Atherosclerotic heart disease of native coronary artery with unspecified angina pectoris
CPT/HCPCS: 71046; 74177; 80061; 80076; 87040; Q9967

== ENCOUNTER 2018-01-12 18:56 | Emergency (ER) | payer OTHER, SELFPAY ==
[2018-01-12 18:57] VITALS: BP 144/89; PULSE 95; RESP 17; TEMP 37.4; O2SAT 99; BMI 23.3
--- NOTE | 2018-01-12 19:23 | ED.VISSUMM ---
- ER Visit Summary Date of Service: 01/12/18 Chief Complaint: Abdominal pain, fever History of Present Illness: The patient is a 48 F who had a cardiac stent placed December 19. She just started cardiac rehab over the past week or so. Over the past 2 weeks she has had occasional epigastric pain and nausea. 2 days ago she was flushed, sweating, developed fever and worsened epigastric pain. She had an EGD performed Dr. Tiwari that showed mild gastritis. Yesterday her fever continued and she was seen by Dr. Pelaez. Her symptoms are not believed to be related to cardiac origin. She had a chest x-ray and a CT the abdomen and pelvis done yesterday that were pretty unremarkable. Her LFTs however do seem to be climbing Today she is had continued symptoms. She reports foul-smelling gas but is having normal bowel movements with formed stool. She denies blood in her stool. Past history significant for coronary disease, hypertension, ulcerative colitis. She has been well controlled on Imuran for some time. She has had prior cholecystectomy. Physical Examination: Vital signs are grossly unremarkable. Temperature here is 99.3. Patient is sitting upright in bed. She appears ill but not toxic. Head and neck examination grossly unremarkable. Heart is regular rate and rhythm. Lung sounds are clear. Abdomen is soft with mild tenderness in the left lower quadrant. There is no guarding or rebound. Hypoactive bowel sounds are noted throughout. Test Results: CBC was a white count of 4.1 with 78% neutrophils. Chemistry studies normal. LFTs reveal an alk phos of 250 which is up when compared to yesterday's labs. ALT is 122 which is slightly decreased from yesterday's labs. AST is 101 which is improved from yesterday's labs. Blood cultures were sent. I also sent an acute hepatitis panel. Emergency Department Course and Treatment: Patient was initially given IV fluids, Zofran, and fentanyl. Right upper quadrant ultrasound is done that shows changes consistent with prior cholecystectomy. There is no evidence of right upper quadrant disease. Patient was complaining of generalized headache. She was given Toradol, Reglan, Benadryl, and IV fluids. On repeat evaluation at this time headache is improved. I discussed with her the hepatitis panel will be pending and I will not have results for that tonight. Dr. Tiwari had called and advised the patient was coming in and provided history. He is to be in touch with Dr. Khan tomorrow about her current findings. Patient is comfortable with this plan. Treatment Plan: [] Disposition: Discharge Impression: 1. Fever, uncertain etiology 2. Hepatitis, report pending This note was generated with [employer] dictation software. It may contain incorrect words, spelling, and punctuation that were not noted in review of the chart prior to signing ED Disposition - Plan for ED Patient: Disposition: Home or Assisted Living Chief Complaint: Abd Pain Instructions: ED Fever Unconf Cause, ED Hepatitis Cause Unkn Test Pen Referrals: Jacob Tiwari MD [STAFF PHYSICIAN] -
--- NOTE | 2018-01-12 19:27 | US_ITS ---
STUDY: ABDOMINAL ULTRASOUND - RIGHT UPPER QUADRANT REASON FOR VISIT: Female, 48 years old. Elevated liver enzymes. TECHNIQUE: Ultrasound evaluation of the right upper quadrant was performed with real-time and static de [place] vega-scale imaging. TECHNICAL QUALITY: Adequate. COMPARISON: None. FINDINGS: Liver: The liver measures 16.1 cm. There is normal echogenicity of the liver. The bile ducts are within normal limits. There is hepatic color flow. The direction of portal flow is hepatopetal. There is no demonstrated mass lesion. Gallbladder: The patient is status post cholecystectomy. Common Bile Duct (C.B.D.): The common bile duct measures 4.4 mm. Pancreas: There is diffuse atrophy of the pancreas. There is increased echogenicity of the pancreas. There is no demonstrated pancreatic mass or cyst. Right Kidney: Normal size of the right kidney. The right kidney measures 11.1 x 3.8 x 4.9 cm. Normal renal cortex. The right cortex measures 1.1 cm. There is no demonstrated renal mass or cyst. There is no right hydronephrosis. US/Abdomen Limited IMPRESSION: 1. Cholecystectomy. 2. No sonographic evidence of acute right upper quadrant abdominal disease. Electronically Signed: Ashley Mcintosh MD at 21:10 EDT , Service support ,
[2018-01-12] MEDS: 0.9% Normal Saline 1,000 ML 150 ML IV (19:50)
[2018-01-12] MEDS: Ondansetron 4 MG/2 ML Vial IV (19:50)
[2018-01-12 20:21] LABS: Absolute Lymphocyte Count 0.38 X10^3/ul (0.83-4.51); Absolute Neutrophil Count 3.3 X10^3/uL (2.0-7.7); Basophil# 0.02 X10^3/uL; Basophil% 0.5 % (0-1); Eosinophil# 0.27 X10^3/uL; Eosinophils% 6.5 % (0-5); Lymphocyte # 0.38 X10^3/ul (4.0); Lymphocyte % 9.2 % (19-41); Mean Corp Hgb Conc 34.2 g/gl (32-36); Mean Corpuscular Hgb 32.4 pg (27.0-32.0); Mean Corpuscular Volume 94.8 fL (81-99); Mean Platelet Vol. 9.2 fl (6.2-12.0); Monocyte# 0.21 X10^3/uL; Monocyte% 5.1 % (0-10); Neutrophil # 3.26 X10^3/uL (2.7-7.7); Neutrophil % 78.7 % (47-70); Platelet Count 188 K/mm3 (150-450); RBC Distribution Width CV 12.8 % (11.6-14.6); RBC Distribution Width SD 44.6 fl (35.1-43.9); Red Blood Count 4.01 M/mm3 (4.2-5.4); White Blood Count 4.1 K/mm3 (4.4-11.0)
[2018-01-12 20:32] LABS: Differential Indicated SCAN CRITERIA MET; POSITIVE COUNT NO; POSITIVE DIFFERENTIAL YES; POSITIVE MORPHOLOGY NO
[2018-01-12 20:33] LABS: AST(SGOT) 101 U/L (15-37); Alanine Aminotransfer ALT/SGPT 122 U/L (13-56); Albumin, Serum 3.8 g/dL (3.2-5.0); Alkaline Phosphatase 250 U/L (45-117); Anion Gap 7 (5-15); BUN 9 mg/dL (7-18); BUN/Creat Ratio 12.4 RATIO (10-20); Calcium,Total 8.9 mg/dL (8.5-10.1); Chloride 102 mmol/L (98-107); Creatinine, Serum 0.73 mg/dL (0.55-1.02); EST Glomerular Filtration Rate 91 mL/min (>60); Est Glom Filt Rate - Afr Amer 110 mL/min (>60); Estimated Creatinine Clearance 71.12 ml/min; Globulin 3.8 g/dL (2.2-4.2); Glucose 93 mg/dL (74-106); Potassium 3.6 mmol/L (3.5-5.1); Protein, Total 7.6 g/dL (6.4-8.2); Sodium Level 138 mmol/L (136-145)
[2018-01-12 20:37] LABS: Differential Comment SCANNED
[2018-01-12 21:00] VITALS: BP 126/80; PULSE 90; RESP 16; O2SAT 98
[2018-01-12] MEDS: fentaNYL 100 MCG/2 ML Ampul 25 MCG IV (21:06)
[2018-01-12] MEDS: Ketorolac 30 MG/ML Syringe IV (22:09)
[2018-01-12] MEDS: DiphenhydrAMINE 50 MG/ML Syringe 25 MG IV (22:09)
[2018-01-12] MEDS: Metoclopramide 10 MG/2 ML Vial IV (22:09)
--- NOTE | 2018-01-12 23:29 | ED.DEP ---
ED Disposition - Plan for ED Patient: Disposition: Home or Assisted Living Chief Complaint: Abd Pain Instructions: ED Fever Unconf Cause, ED Hepatitis Cause Unkn Test Pen Referrals: Jacob Tiwari MD [STAFF PHYSICIAN] -
[2018-01-12 23:33] VITALS: BP 111/60; PULSE 90; RESP 14; O2SAT 98
[2018-01-14 04:08] LABS: HEPATITIS B SURFACE AG Negative (Negative); Hepatitis A IgM Antibody Negative (Negative); Hepatitis B Core AB IgM Negative (Negative)
[2018-01-14 14:04] LABS: Hep C Antibodies <0.1 s/co ratio (0.0-0.9)
== END 2018-01-12 23:34 | disposition home or self-care (01) ==
PROVIDERS: Emergency Provider Emergency Medicine; Family Provider Family Medicine; PCP Family Medicine
DX: R50.9 Fever, unspecified (principal); R10.13 Epigastric pain; R11.0 Nausea; R51 Headache; I25.10 Atherosclerotic heart disease of native coronary artery without angina pectoris; I10 Essential (primary) hypertension; K51.90 Ulcerative colitis, unspecified, without complications; Z95.5 Presence of coronary angioplasty implant and graft; Z90.49 Acquired absence of other specified parts of digestive tract; Z79.82 Long term (current) use of aspirin; Z79.899 Other long term (current) drug therapy
CPT/HCPCS: 36415; 76705; 80053; 80074; 85025; 87040; 96361; 96374; 96375; 99283; J7030; A4216; J2405

== ENCOUNTER → 2018-01-20 12:50 | Outpatient (CLI) | payer OTHER, SELFPAY ==
[2018-01-20 08:22] LABS: AST(SGOT) 61 U/L (15-37); Alanine Aminotransfer ALT/SGPT 127 U/L (13-56); Albumin, Serum 3.6 g/dL (3.2-5.0); Alkaline Phosphatase 304 U/L (45-117); Bilirubin, Direct 0.13 mg/dL (0.00-0.30); Globulin 3.5 g/dL (2.2-4.2); Protein, Total 7.1 g/dL (6.4-8.2)
--- NOTE | 2018-01-20 12:51 | ECHOD_ITS ---
Reason For Study: ABN EKG Procedure This was a 2D Doppler, Color Flow transthoracic echocardiogram. Exam performed in department. Left Ventricle Normal LV size. Left ventricular systolic function is normal. The estimated ejection fraction is 55 %. No evidence for diastolic dysfunction. No regional wall motion abnormalities noted. Right Ventricle Normal RV size. Normal systolic function. Atria Normal left atrium. Normal right atrium. Mitral Valve Normal mitral valve. Tricuspid Valve Normal tricuspid valve. Mild tricuspid valve insufficiency. Pulmonary artery systolic pressure is 25 mmHg. Aortic Valve Normal aortic valve. Pulmonic Valve Normal pulmonic valve. Great Vessels Normal aortic root. The pulmonary artery is normal size. Normal inferior vena cava. Pericardium/Pleural No pericardial effusion. MMode/2D Measurements & Calculations LVIDd: 4.5 cm IVSd: 0.90 cm Ao root diam: 2.9 cm LVIDs: 3.1 cm LVPWd: 0.93 cm LA dimension: 3.1 cm FS: 32.1 % LAV(MOD-bp): 44.5 ml LA A4 area: 15.9 cm2 RA A4 area: 9.9 cm2 LAV(MOD-bp) Indexed: 27.8 ml/m2 LAV(MOD-sp2): 43.0 ml LAV(MOD-sp4): 41.5 ml Doppler Measurements & Calculations MV E max jordin: 79.7 cm/sec Lat Peak E' Jordin: 12.3 cm/sec Med Peak E' Jordin: 8.3 cm/sec MV A max jordin: 54.9 cm/sec E/E' lat: 6.5 E/E' med: 9.6 MV E/A: 1.5 Ao V2 max: 107.9 cm/sec LV V1 max: 96.8 cm/sec PA V2 max: 95.1 cm/sec Ao max P.7 mmHg LV V1 max P.8 mmHg TR max jordin: 230.7 cm/sec TR max P.3 mmHg Interpretation Summary Normal LV size. Left ventricular systolic function is normal. The estimated ejection fraction is 55 %. No evidence for diastolic dysfunction. Mild tricuspid valve insufficiency. Ordering Physician: Bry Pelaez Referring Physician: Kenzie Torrez Performed By: Radha Blue, RO, RVT
== END ==
PROVIDERS: Family Provider Family Medicine; PCP Family Medicine; Referring Provider Internal Medicine Cardiovascular Disease; Visit Provider Internal Medicine Cardiovascular Disease
DX: K51.90 Ulcerative colitis, unspecified, without complications (principal); R50.9 Fever, unspecified; R94.5 Abnormal results of liver function studies
CPT/HCPCS: 36415; 80076; 93306

== ENCOUNTER → 2018-02-03 08:57 | Outpatient (CLI) | payer OTHER, SELFPAY ==
[2018-02-03 10:05] LABS: AST(SGOT) 19 U/L (15-37); Alanine Aminotransfer ALT/SGPT 32 U/L (13-56); Albumin, Serum 3.8 g/dL (3.2-5.0); Alkaline Phosphatase 105 U/L (45-117); Bilirubin, Direct 0.13 mg/dL (0.00-0.30); Globulin 3.3 g/dL (2.2-4.2); Protein, Total 7.1 g/dL (6.4-8.2)
== END ==
PROVIDERS: Family Provider Family Medicine; PCP Family Medicine; Referring Provider Internal Medicine Gastroenterology; Visit Provider Internal Medicine Gastroenterology
DX: K51.90 Ulcerative colitis, unspecified, without complications (principal); K75.9 Inflammatory liver disease, unspecified; R10.9 Unspecified abdominal pain
CPT/HCPCS: 36415; 80076

== ENCOUNTER 2018-02-06 15:15 | Outpatient (RCR) | payer OTHER, SELFPAY ==
[2018-02-03 11:18] VITALS: BP 100/68
--- NOTE | 2018-02-03 11:18 | CR.ITP_ITS ---
Exercise - 30-day Assessment - Visit Date of Eval: 02/03/18 Session #:: 8 - Stages of Change Stages of Change:: Action - Exercise Prescription Mode:: Treadmill, Rower, Airdyne Frequency (x/week): 3 Duration:: 35 METs - Progression: 0.5-1 MET as tolerated: 4.5 Target Heart Rate:: 129-138 max HR 134 - Hypertension Resting Blood Pressure:: 100/68 Peak Exercise Blood Pressure:: 100/68 Medication Changes:: Yes - decreased lisinopril and lipitor DCd - Intervention Home Exercise/Activity Goal:: Moderate Exercise 30 min/day x 5 days/wk - Education Goals:: Warm-up, RPE RANDAL Scale, S/S, Safe Exercise, Self-Monitoring - Exercise Program Goals Exercise Program Goals: Aerobic Activity >30 min Nutrition - 30-Day Assessment - Program Goals Nutrition Program Goals: LDL <70. Total Cholesterol <200. HDL >45. Triglycerides <150. HgbA1C <7%. BMI <25 - Visit Date of Eval: 02/03/18 - Stages of Change Stages of Change:: Action - Lipids Has the patient seen the dietitian?: No - Diabetes Diabetes:: No - Weight Management Weight:: 133 lb - Intervention Referral to dietitian:: No Referral to Diabetic Clinic:: No Will attend diet classes:: Yes - Education Attended class for:: Healthy eating Tobacco - 30-Day Assessment - Program Goals Tobacco Program Goals: Complete smoking cessation. Attend education classes. Improve Knowledge Test score - Stage of Change Stages of Change:: Action - Learning Barriers Learning Barriers: Participates in education - Family Support Do you have family support?: Yes - Tobacco Use Tobacco Use: Non-smoker Do you use smokeless tobacco?: No - Intervention Education Schedule Given:: Yes - Education Attended class for:: Coronary artery disease, Risk factors, Sexuality, Medical compliance, Cardiac A&P, Angina signs & symptoms Psychosocial - 30-Day Assess - Target Goals Target Goals: Assess presence or absence of depression. Using a valid screening tool, maximizes coping skills. Positive support system - Stages of Change Stages of Change:: Action - Psychosocial Test Tool Used:: HANDS Depression Questionnaire - Intervention PS - Interventions: Yes Attend Stress Management Classes, Yes Uses Stress Management Skills, No Referral to Mental Health, No Referral to [facility] Case Management, No Referral to Physician - Education Attended classes for:: Coping techniques, Signs & symptoms of depression, Stress management, Relaxation techniques - Patient/Program Goal Preventative Medication(s):: Aspirin, Clopidogrel, Beta malik - Assistive Devices Assistive Devices:: None Fall Risk Assessed:: Yes Patient Health Questionnaire 30-Day Re-eval Assessment 1. Little interest or pleasure in doing things: Not at all 2. Feeling down, depressed, or hopeless: Not at all 3. Trouble falling or staying asleep, or sleeping too much: Not at all 4. Feeling tired or having little energy: Not at all 5. Poor appetite or overeating: Not at all 6. Feeling bad about yourself -- or that you are a failure or have let yourself or your family down: Not at all 7. Trouble concentrating on things, such as reading the newspaper or watching television: Not at all 8. Moving or speaking so slowly that other people could have noticed. Or the opposite - being so fidgety or restless that you have been moving around a lot more than usual: Not at all 9. Thoughts that you would be better off , or of hurting yourself in some way: Not at all Total Score: 0 Self-Efficacy 30-Day Re-eval Assessment We would like to know how confident you are in doing certain activities. Please select your confidence level for:: Select your confidence level for the following using the scale 1-10 where 1 is not at all confident and 10 is totally confident. Your score is the average of all 6 responses. Fatigue: How confident are you that you can keep the fatigue caused by your disease from interfering with the things you want to do? Select Number: 10 Physical Discomfort or Pain: How confident are you that you can keep the physical discomfort or pain of your disease from interfering with the things you want to do? Select Number: 10 Emotional Distress: How confident are you that you can keep the emotional distress caused by your disease from interfering with the things you want to do? Select Number: 10 Other Symptoms or Health Problems: How confident are you that you can keep other symptoms or health problems from interfering with the things you want to do? Select Number: 10 Different Tasks and Activities: How confident are you that you can do the different tasks and activities needed to manage your health condition so as to reduce your need to see a doctor? Select Number: 10 Medication: How confident are you that you can do things other than just taking medication to reduce how much your illness affects your everyday life? Select Number: 10 Total Score:: 10
== END 2018-02-08 13:57 | disposition home or self-care (01) ==
LOC: CR 15:15
PROVIDERS: Family Provider Family Medicine; PCP Family Medicine; Referring Provider Internal Medicine Cardiovascular Disease; Visit Provider Internal Medicine Cardiovascular Disease
DX: I25.10 Atherosclerotic heart disease of native coronary artery without angina pectoris (principal); I10 Essential (primary) hypertension; Z95.5 Presence of coronary angioplasty implant and graft
CPT/HCPCS: 93798

== ENCOUNTER → 2018-03-23 07:02 | Outpatient (CLI) | payer OTHER, SELFPAY ==
[2018-02-08 12:40] VITALS: BMI 24.9
[2018-03-23 09:33] LABS: AST(SGOT) 18 U/L (15-37); Alanine Aminotransfer ALT/SGPT 31 U/L (13-56); Albumin, Serum 3.8 g/dL (3.2-5.0); Alkaline Phosphatase 53 U/L (45-117); Bilirubin, Direct 0.11 mg/dL (0.00-0.30); Cholesterol 212 mg/dL (200); Globulin 3.4 g/dL (2.2-4.2); High Density Lipoprotein 46 mg/dL; Protein, Total 7.2 g/dL (6.4-8.2); Triglycerides 127 mg/dL; Very Low Density Lipoprotein 25 mg/dL (5-40)
--- OUTSIDE RECORDS SUMMARY | 2018-05-09 00:26 | XMS RPT_ITS ---
:1970 Author Organization OHIP Support Name Relationship Address Phone MELISSA BOLTON Unavailable Unavailable Unavailable CHE, MELISSA Unavailable Unavailable Unavailable SPRANG JAMARCUS Unavailable Unavailable Unavailable SPRANG, AMALIA Unavailable Unavailable Unavailable CHE, MELISSA Unavailable Unavailable Unavailable CHE, MELISSA Unavailable Unavailable Unavailable SPRANG, JAMARCUS Unavailable Unavailable Unavailable SPRANG, AMALIA Unavailable Unavailable Unavailable CHE, MELISSA Unavailable Unavailable Unavailable CHE, MELISSA Unavailable Unavailable Unavailable SPRANG, JAMARCUS Unavailable Unavailable Unavailable SPRANG, AMALIA Unavailable Unavailable Unavailable SPRANG, JAMARCUS Unavailable [address] + [place] [address] [facility] Unavailable [address] + [place] [address] CHE, MELISSA Unavailable Unavailable Unavailable CHE, MELISSA Unavailable Unavailable Unavailable SPRANG, JAMARCUS Unavailable Unavailable Unavailable SPRANG, AMALIA Unavailable Unavailable Unavailable SPRANG, JAMARCUS Unavailable [address] + [place] [address] [facility] Unavailable [address] + [place] [address] DEBRA JAMARCUS Unavailable [address] + [place] [address] [facility] Unavailable [address] + [place] [address] DEBRA JAMARCUS Unavailable [address] + [place] [address] [facility] Unavailable [address] + [place] [address] DEBRA JAMARCUS Unavailable [address] + [place] [address] [facility] Unavailable [address] + [place] [address] DEBRA JAMARCUS Unavailable [address] + [place] [address] [facility] Unavailable [address] + [place] [address] JAMARCUS RICHARDSON Unavailable [address] + [place] [address] [facility] Unavailable [address] + [place] [address] JAMARCUS RICHARDSON Unavailable [address] + [place] [address] [facility] Unavailable [address] + [place] [address] JAMARCUS RICHARDSON Unavailable [address] + [place] [address] [facility] Unavailable [address] + [place] [address] JAMARCUS RICHARDSON Unavailable [address] + [place] [address] [facility] Unavailable [address] + [place] [address] JAMARCUS RICHARDSON Unavailable [address] + [place] [address] [facility] Unavailable [address] + [place] [address] JAMARCUS RICHARDSON Unavailable [address] + [place] [address] [facility] Unavailable [address] + [place] [address] JAMARCUS RICHARDSON Unavailable [address] + [place] [address] [facility] Unavailable [address] + [place] [address] JAMARCUS RICHARDSON Unavailable [address] + [place] [address] [facility] Unavailable [address] + [place] [address] JAMARCUS RICHARDSON Unavailable [address] + [place] [address] [facility] Unavailable [address] + [place] [address] JAMARCUS RICHARDSON Unavailable [address] + [place] [address] [facility] Unavailable [address] + [place] [address] JAMARCUS RICHARDSON Unavailable [address] + [place] [address] [facility] Unavailable [address] + [place] [address] JAMARCUS RICHARDSON Unavailable [address] + [place] [address] [facility] Unavailable [address] + [place] [address] JAMARCUS RICHARDSON Unavailable [address] + [place] [address] [facility] Unavailable [address] + [place] [address] JAMARCUS RICHARDSON Unavailable [address] + [place] [address] [facility] Unavailable [address] + [place] [address] JAMARCUS RICHARDSON Unavailable [address] + [place] [address] [facility] Unavailable [address] + [place] [address] JAMARCUS RICHARDSON Unavailable [address] + [place] [address] [facility] Unavailable [address] + [place] [address] JAMARCUS RICHARDSON Unavailable [address] + [place] [address] [facility] Unavailable [address] + [place] [address] JAMARCUS RICHARDSON Unavailable [address] + [place] [address] [facility] Unavailable [address] + [place] [address] JAMARCUS RICHARDSON Unavailable [address] + [place] [address] [facility] Unavailable [address] + [place] [address] JAMARCUS RICHARDSON Unavailable [address] + [place] [id number] [facility] Unavailable [address] + [place] [address] JAMARCUS RICHARDSON Unavailable [address] + [place] [address] [facility] Unavailable [address] + [place] [address] JAMARCUS RICHARDSON Unavailable [address] + [place] [address] [facility] Unavailable [address] + [place] [address] JAMARCUS RICHARDSON Unavailable [address] + [place] [address] [facility] Unavailable [address] + [place] [address] JAMARCUS RICHARDSON Unavailable [address] + [place] [address] [facility] Unavailable [address] + [place] [address] JAMARCUS RICHARDSON Unavailable [address] + [place] [id number] [facility] Unavailable [address] + [place] [address] JAMARCUS RICHARDSON Unavailable [address] + [place] [address] PATTIE RICHARDSON Unavailable [address] + [place] [id number] [facility] Unavailable [address] + [place] [address] Care Team Providers Name Role Phone JAMARCUS GOLD Admitting Unavailable BRY PELAEZ S Referring Unavailable CONSULT, CARDIOLOGY Consulting Unavailable LENY DE LA ROSA Attending Unavailable MOKADAM, NAHUSH A Admitting Unavailable MOKADAM, NAHUSH A Attending Unavailable CONSULT, CARDIOLOGY Consulting Unavailable RAJIV ALLISON Attending Unavailable EDITH DUQUE Referring Unavailable MALYS, KENZIE A Primary Care Unavailable RAJIV ALLISON Attending Unavailable EDITH DUQUE Referring Unavailable MALYS, KENZIE A Primary Care Unavailable Bry Pelaez Attending Unavailable Jacey, Bry Referring Unavailable Malys, Kenzie Primary Care Unavailable Bry Pelaez Attending Unavailable Malys, Kenzie Referring Unavailable Fidelia Grier Attending Unavailable Estefania Steward Attending Unavailable Estefania Steward Referring Unavailable Malys, Kenzie Primary Care Unavailable Jacey, Ringle Attending Unavailable Malys, Kenzie Referring Unavailable Jacey, Ringle Attending Unavailable Jacey, Bry Referring Unavailable Malys, Kenzie Primary Care Unavailable Kilner, Fidelia Attending Unavailable Kilner, Fidelia Attending Unavailable Jacey, Ringle Attending Unavailable Jacey, Ringle Referring Unavailable Emily, Jazzy Attending Unavailable Emily, Jazzy Referring Unavailable Malys, Kenzie Primary Care Unavailable Emily, Jazzy Attending Unavailable [place], Jazzy Referring Unavailable Malys, Kenzie Primary Care Unavailable ASSESSMENT, HEALTH RISK Attending Unavailable ASSESSMENT, HEALTH RISK Referring Unavailable Malys, Kenzie Primary Care Unavailable Malys, Kenzie Primary Care Unavailable Jacey, Ringle Attending Unavailable Jacey, Bry Admitting Unavailable Jacey, Ringle Attending Unavailable Malys, Kenzie Referring Unavailable Jacey, Ringle Attending Unavailable Malys, Kenzie Primary Care Unavailable Jacey, Ringle Consulting Unavailable Jacey, Ringle Admitting Unavailable Jacey, Ringle Attending Unavailable Malys, Kenzie Primary Care Unavailable Jacey, Ringle Consulting Unavailable Cherrie, Fidelia Attending Unavailable Jacey, Ringle Attending Unavailable Malys, Kenzie Referring Unavailable Malys, Kenzie Primary Care Unavailable Jacey, Bry Attending Unavailable Jacey, Ringle Referring Unavailable Malys, Kenzie Primary Care Unavailable Jacey, Bry Attending Unavailable Malys, Kenzie Primary Care Unavailable Jacey, Ringle Referring Unavailable Jacob Tiwari Attending Unavailable Jacob Tiwari Referring Unavailable Malys, Kenzie Primary Care Unavailable Jacey, Bry Attending Unavailable Malys, Kenzie Referring Unavailable Jacey, Bry Attending Unavailable Jacey, Ringle Referring Unavailable Malys, Kenzie Primary Care Unavailable Malys, Kenzie Primary Care Unavailable Marge Peralta Attending Unavailable Jacey, Ringle Attending Unavailable Pop Null Referring Unavailable Jacey, Bry Attending Unavailable Jacey, Ringle Referring Unavailable Malys, Kenzie Primary Care Unavailable Keron Khan Consulting Unavailable Jacey, Bry Attending Unavailable Jacey, Ringle Referring Unavailable Malys, Kenzie Primary Care Unavailable Keron Khan Consulting Unavailable Jacey, Bry Consulting Unavailable Jacob Tiwari Attending Unavailable Keron Khan Attending Unavailable Keron Khan Referring Unavailable Malys, Kenzie Primary Care Unavailable Lul Merlos Attending Unavailable Kenzie Torrez Referring Unavailable Bry Pelaez Attending Unavailable Jacob Tiwari Referring Unavailable Jazzy Diaz Attending Unavailable Malys, Kenzie Referring Unavailable Malys, Kenzie Primary Care Unavailable PROBLEMS PROBLEMS DATE TYPE CONDITION / CODE ATTENDING STATUS SOURCE 05/02/2018 Admitting Atherosclerotic MOKADAM, 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 / Repository I25.110(ICD-10) 04/17/2018 Admitting Presence of coronary VILJOEN, LENY Active [facility] diagnosis angioplasty implant [facility] Z95.5(ICD-10) Center Repository 04/17/2018 Admitting Chest pain, VILJOEN, LENY Active [facility] diagnosis unspecified / University R07.9(ICD-10) [facility] Repository 04/17/2018 Admitting Atherosclerotic VILJOEN, LENY Active [facility] diagnosis heart disease of [place] coronary [facility] artery without Center angina pectoris / Repository I25.10(ICD-10) 04/17/2018 Unknown I25.119 - Jacey, Ringle Active [place] Atherosclerotic Community heart disease of [facility] [place] coronary Repository artery with unspecified angina pectoris / I25.119(ICD-10) 04/17/2018 Unknown E78.5 - Jacey, Bry Active [place] Hyperlipidemia, Community unspecified / Hospital E78.5(ICD-10) Repository 04/17/2018 Unknown Z95.5 - Presence of Jacey, Bry Active [place] coronary angioplasty Community implant and graft / Hospital Z95.5(ICD-10) Repository 04/07/2018 Unknown R07.9 - Chest pain, Jacey, Bry Active [place] unspecified / Community R07.9(ICD-10) Hospital Repository 03/24/2018 Unknown I10 - Essential Jacey, Ringle Active [place] (primary) Community hypertension / Hospital I10(ICD-10) Repository 02/08/2018 Unknown B35.4 - Lul Powers Active [place] corporis / Community B35.4(ICD-10) Hospital Repository 02/08/2018 Unknown I25.10 - JaceyKurtis cosmeril Active [place] Atherosclerotic Community heart disease of [facility] [place] coronary Repository artery without angina pectoris / I25.10(ICD-10) 02/03/2018 Unknown R10.9 - Unspecified Jabour, Active [place] [facility] R10.9([facility]-10[facility] Hospital Repository 02/03/2018 Unknown K51.90 - Ulcerative Jabour, Active [place] colitis, [facility] unspecified, without Hospital complications / Repository K51.90(ICD-10) 02/03/2018 Unknown K75.9 - Inflammatory Jabour, Active [place] liver disease, [facility] unspecified / Hospital K75.9(ICD-10) Repository 01/20/2018 Unknown R50.9 - Fever, Jacey, Bry Active [place] unspecified / Community R50.9(ICD-10) Hospital Repository 01/20/2018 Unknown R94.5 - Abnormal Jacey, Ringle Active [place] results of liver Community function studies / Hospital R94.5(ICD-10) Repository 02/02/2018 Unknown R10.13 - Epigastric CebulJacob Active [place] pain / Community R10.13(ICD-10) Hospital Repository 02/02/2018 Unknown K31.89 - Other Cebul, Jacob Active [place] diseases of stomach Community and duodenum / Hospital K31.89(ICD-10) Repository 06/07/2017 Unknown Z12.31 - Encounter Emily, Active [place] for screening [facility] mammogram for Hospital malignant neoplasm Repository of breast / Z12.31(ICD-10) 04/21/2017 Unknown Z01.419 - Encounter Emily, Active [place] for gynecological [facility] examination Hospital (general) (routine) Repository without abnormal findings / Z01.419(ICD-10) 04/21/2017 Unknown N92.0 - Excessive Emily, Active [place] and frequent [facility] menstruation with Hospital regular cycle / Repository N92.0(ICD-10) PROCEDURES PROCEDURES No Procedure Records FoundRESULTS RESULTS ECHOCARDIOGRAM Observed: 05/03/2018 Status: F Source: [facility] LIMITED/FOLLOWUP 9:32 AM [facility] REPOSITORY Limited echo with Doppler to assess LV function. Technically difficult study due to poor acoustic windows. The left ventricle is normal size with normal systolic dysfunction. Paradoxical septal motion likely secondary to prior cardiac surgery. Estimated LVEF = 60%. The right ventricle is poorly visualized. Estimated RVSP = 25-30 mmHg. There is no pericardial effusion. XR CHEST PORTABLE Observed: 05/03/2018 Status: F Source: [facility] 9:22 AM [facility] REPOSITORY EXAM: XR CHEST PORTABLE, 05/03/2018 05:43 AM COMPARISON: Compared to prior day. CLINICAL INDICATIONS: post op CABG RELEVANT CLINICAL HISTORY: FINDINGS: (Adequate technique) Life Support Devices: Stable Chest Wall: Stable surgical drain Parul: Normal Mediastinum: Normal Pleural Spaces: No definite pleural effusion. No definite pneumothorax. Lungs: Low lung volumes without change Cardiac Silhouette: Stable contour Thoracic Aorta: Normal Pulmonary Vessels: Normal, without PVH IMPRESSION: Decreased lung volumes. No other change. *POC GLUCOSE BATTERY Collected: 05/03/2018 Status: F Source: [facility] 9:13 AM [facility] REPOSITORY TYPE CODE TESTS RESULT OUT OF REFERENCE UNITS RANGE LAB GLUP 70-99 mg/dL High Glucose (poc 150 device) Result Comment: Meets BRAVE per RN: PATIENT TYPE LAB PCSTYP *POC Arterial SAMPLE TYPE XR CHEST PORTABLE Observed: 05/03/2018 Status: F Source: [facility] 8:42 AM [facility] REPOSITORY EXAM: XR CHEST PORTABLE, 05/02/2018 23:35 PM COMPARISON: May 02, 2018 CLINICAL INDICATIONS: atypical chest pain s/p open heart surgery RELEVANT CLINICAL HISTORY: FINDINGS: (Adequate technique) Stable right-sided central line, no pneumothorax. Low lung volumes with atelectasis in the left base. No consolidation, pneumothorax or effusion. Stable cardiac and mediastinal silhouettes. Bony structures appear intact. Drain device appears to overlie the epigastric region. IMPRESSION: Low lung volumes with mild atelectasis in the left base. *POC GLUCOSE BATTERY Collected: 05/03/2018 Status: F Source: [facility] 8:28 AM [facility] REPOSITORY TYPE CODE TESTS RESULT OUT OF REFERENCE UNITS RANGE LAB GLUP 70-99 mg/dL High Glucose (poc 123 device) Result Comment: Meets BRAVE per RN: PATIENT TYPE LAB PCSTYP *POC Arterial SAMPLE TYPE IONIZED CALCIUM Collected: 05/03/2018 Status: F Source: [facility] 5:53 AM [facility] REPOSITORY TYPE CODE TESTS RESULT OUT OF REFERENCE UNITS RANGE LAB ICA 4.60-5.30 mg/dL Low Ionized 4.24 Calcium Performed By: #### ICA #### [facility] [address] [place] [address] [facility] [address] [place] [address] *POC GLUCOSE BATTERY Collected: 05/03/2018 Status: F Source: [facility] 4:14 AM [facility] REPOSITORY TYPE CODE TESTS RESULT OUT OF REFERENCE UNITS RANGE LAB GLUP 70-99 mg/dL High Glucose (poc 121 device) Result Comment: Meets BRAVE per RN: PATIENT TYPE LAB PCSTYP *POC Arterial SAMPLE TYPE *POC GLUCOSE BATTERY Collected: 05/03/2018 Status: F Source: [facility] 12:56 AM [facility] REPOSITORY TYPE CODE TESTS RESULT OUT OF REFERENCE UNITS RANGE LAB GLUP 70-99 mg/dL High Glucose (poc 121 device) Result Comment: Meets BRAVE per RN: PATIENT TYPE LAB PCSTYP *POC Arterial SAMPLE TYPE HEMOGRAM (CBC AND Collected: 05/03/2018 Status: F Source: [facility] PLATELET) 12:20 AM [facility] REPOSITORY TYPE CODE TESTS RESULT OUT OF REFERENCE UNITS RANGE LAB WBC 3.99-11.19 K/uL WBC Count High 11.73 LAB RBC 3.91-5.04 M/uL Low RBC Count 3.26 LAB HGB 11.4-15.2 g/dL Low Hemoglobin 10.8 LAB HCT 34.9-44.3 % Low Hematocrit 31.0 LAB MCV 79.6-97.7 fL Mean Cell Volume 95.1 LAB MCH 25.9-33.9 pg Mean Cell Hgb 33.1 LAB MCHC 31.4-35.9 g/dL Mean Cell Hgb Conc 34.8 LAB RDW 10.8-14.9 % RBC Distribution 12.2 LAB PLT 150-393 K/uL Platelet Count 291 LAB MPV 8.5-12.2 fL Mean Platelet Volume 8.7 LAB NRBC 0.0-0.2 /100 WBC NUCLEATED RBC 0.0 Performed By: #### HEMOGC, PTPTT, CHM7, MGO #### [facility] [address] [place] [address] [facility] [address] [place] [address] PT*PTT Collected: 05/03/2018 Status: F Source: [facility] 12:20 AM [facility] REPOSITORY TYPE CODE TESTS RESULT OUT OF RANGE REFERENCE UNITS LAB PT 11.9-14.2 sec PT 13.9 LAB INR 0.9-1.1 INR 1.1 LAB PTT 24.0-34.3 sec PTT 26.6 Performed By: #### HEMOGC, PTPKENYA, CHM7, MGO #### [facility] [address] [place] [id number] [place] [address] [place] [id number] CHEM 7 Collected: 05/03/2018 Status: F Source: [facility] 12:20 [facility] REPOSITORY TYPE CODE TESTS RESULT OUT OF REFERENCE UNITS RANGE LAB BUN 7-22 mg/dL BUN 8 LAB NA 133-143 mmol/L Sodium 133 LAB K 3.5-5.0 mmol/L Potassium 3.8 LAB CL 98-108 mmol/L Chloride 104 LAB CO2 22-30 mmol/L Low Carbon Dioxide 18 LAB GLUC 70-99 mg/dL Glucose High 136 LAB CREA 0.50-1.20 mg/dL Creatinine 0.55 LAB GAP 7-17 mmol/L Anion Gap 15 LAB BC BUN/CREA Ratio 15 LAB [facility]SM[facility] 278-305 mOsm/kg Osmolality 280 (Calc) LAB GFR >60 mL/min/1.73 sqM Est GFR,non >60 Fijian LAB GFRA >60 mL/min/1.73 sqM Est GFR, >60 Performed By: #### HEMOGC, PTPKENYA, CHM7, MGO #### [facility] [address] [place] [address] [facility] [address] [place] [address] MAGNESIUM Collected: 05/03/2018 Status: F Source: [facility] 12:20 [facility] REPOSITORY TYPE CODE TESTS RESULT OUT OF REFERENCE UNITS RANGE LAB MG 1.6-2.6 mg/dL Magnesium 2.0 Performed By: #### HEMOGC, PTPTT, CHM7, MGO #### [facility] [address] [place] [address] [facility] [address] [place], [place] [address] LACTATE, BLOOD Collected: 05/02/2018 Status: F Source: [facility] 9:55 PM [facility] REPOSITORY TYPE CODE TESTS RESULT OUT OF RANGE REFERENCE UNITS LAB LACT 0.5-1.6 mmol/L Lactate, 0.9 Blood Performed By: #### LACT #### [facility] [address] [place] [address] [facility] [address] [place], [place] [address] *POC GLUCOSE BATTERY Collected: 05/02/2018 Status: F Source: [facility] 8:23 PM [facility] REPOSITORY TYPE CODE TESTS RESULT OUT OF REFERENCE UNITS RANGE LAB GLUP 70-99 mg/dL High Glucose (poc 106 device) Result Comment: Meets BRAVE per RN: PATIENT TYPE LAB PCSTYP *POC Arterial SAMPLE TYPE *POC GLUCOSE BATTERY Collected: 05/02/2018 Status: F Source: [facility] 6:46 PM [facility] REPOSITORY TYPE CODE TESTS RESULT OUT OF REFERENCE UNITS RANGE LAB GLUP 70-99 mg/dL High Glucose (poc 110 device) Result Comment: Meets BRAVE per RN: PATIENT TYPE LAB PCSTYP *POC Arterial SAMPLE TYPE *POC GLUCOSE BATTERY Collected: 05/02/2018 Status: F Source: [facility] 5:07 PM [facility] REPOSITORY TYPE CODE TESTS RESULT OUT OF REFERENCE UNITS RANGE LAB GLUP 70-99 mg/dL High Glucose (poc 123 device) Result Comment: Meets BRAVE per RN: PATIENT TYPE LAB PCSTYP *POC Arterial SAMPLE TYPE *POC GLUCOSE BATTERY Collected: 05/02/2018 Status: F Source: [facility] 3:59 PM [facility] REPOSITORY TYPE CODE TESTS RESULT OUT OF REFERENCE UNITS RANGE LAB GLUP 70-99 mg/dL High Glucose (poc 143 device) Result Comment: Meets BRAVE per RN: PATIENT TYPE LAB PCSTYP *POC Arterial SAMPLE TYPE *POC GLUCOSE BATTERY Collected: 05/02/2018 Status: F Source: [facility] 2:58 PM [facility] REPOSITORY TYPE CODE TESTS RESULT OUT OF REFERENCE UNITS RANGE LAB GLUP 70-99 mg/dL High Glucose (poc 136 device) Result Comment: Meets BRAVE per RN: PATIENT TYPE LAB PCSTYP *POC Arterial SAMPLE TYPE XR CHEST PORTABLE Observed: 05/02/2018 Status: F Source: [facility] 2:15 PM [facility] REPOSITORY EXAM: XR CHEST PORTABLE, 05/02/2018 12:30 PM COMPARISON: No prior studies available for comparison. CLINICAL INDICATIONS: postop heart surgery RELEVANT CLINICAL HISTORY: On arrival to unit.; FINDINGS: (Adequate technique) Life Support Devices: Right IJ catheter tip in the proximal SVC. Chest Wall: Normal Parul: Normal Mediastinum: Normal Pleural Spaces: No definite pleural effusion. No definite pneumothorax. Lungs: Clear Cardiac Silhouette: Normal, without overall or specific chamber enlargement, or abnormal calcification Thoracic Aorta: Normal Pulmonary Vessels: Normal, without PVH IMPRESSION: No acute cardiopulmonary disease. *POC GLUCOSE BATTERY Collected: 05/02/2018 Status: F Source: [facility] 1:37 PM [facility] REPOSITORY TYPE CODE TESTS RESULT OUT OF REFERENCE UNITS RANGE LAB GLUP 70-99 mg/dL High Glucose (poc 177 device) Result Comment: Meets BRAVE per RN: PATIENT TYPE LAB PCSTYP *POC Arterial SAMPLE TYPE *POC GLUCOSE BATTERY Collected: 05/02/2018 Status: F Source: [facility] 12:20 PM [facility] REPOSITORY TYPE CODE TESTS RESULT OUT OF REFERENCE UNITS RANGE LAB GLUP 70-99 mg/dL High Glucose (poc 191 device) Result Comment: Meets BRAVE per RN: PATIENT TYPE LAB PCSTYP *POC Arterial SAMPLE TYPE *POC GLUCOSE BATTERY Collected: 05/02/2018 Status: F Source: [facility] 11:16 AM [facility] REPOSITORY TYPE CODE TESTS RESULT OUT OF REFERENCE UNITS RANGE LAB GLUP 70-99 mg/dL High Glucose (poc 176 device) Result Comment: Meets BRAVE per RN: PATIENT TYPE LAB PCSTYP *POC Arterial SAMPLE TYPE HEMOGRAM (CBC AND Collected: 05/02/2018 Status: F Source: [facility] PLATELET) 11:14 AM [facility] REPOSITORY TYPE CODE TESTS RESULT OUT OF REFERENCE UNITS RANGE LAB WBC 3.99-11.19 K/uL WBC Count 10.01 LAB RBC 3.91-5.04 M/uL Low RBC Count 3.26 LAB HGB 11.4-15.2 g/dL Low Hemoglobin 10.9 LAB HCT 34.9-44.3 % Low Hematocrit 31.2 LAB MCV 79.6-97.7 fL Mean Cell Volume 95.7 LAB MCH 25.9-33.9 pg Mean Cell Hgb 33.4 LAB MCHC 31.4-35.9 g/dL Mean Cell Hgb Conc 34.9 LAB RDW 10.8-14.9 % RBC Distribution 12.3 LAB PLT 150-393 K/uL Platelet Count 358 LAB MPV 8.5-12.2 fL Mean Platelet Volume 8.9 LAB NRBC 0.0-0.2 /100 WBC NUCLEATED RBC 0.0 Performed By: #### HEMOGC, ICA, PTPTT, FIB, CHM7, IPB, MGO #### [facility] [address] [place] [address] [address] [place] [address] IONIZED CALCIUM Collected: 05/02/2018 Status: F Source: [facility] 11:14 AM [facility] REPOSITORY TYPE CODE TESTS RESULT OUT OF REFERENCE UNITS RANGE LAB ICA 4.60-5.30 mg/dL Low Ionized 3.75 Calcium Performed By: #### HEMOGC, ICA, PTPTT, FIB, CHM7, IPB, MGO #### [facility] [address] [place] [address] [place] [address] PT*PTT Collected: 05/02/2018 Status: F Source: [facility] 11:14 AM [facility] REPOSITORY TYPE CODE TESTS RESULT OUT OF RANGE REFERENCE UNITS LAB PT 11.9-14.2 sec High PT 14.4 LAB INR 0.9-1.1 INR 1.1 LAB PTT 24.0-34.3 sec PTT 30.3 Performed By: #### HEMOGC, ICA, PTPTT, FIB, CHM7, IPB, MGO #### [facility] [address] [place] [address] [place] [address] FIBRINOGEN-CLOTTABLE Collected: Status: F Source: [facility] 05/02/2018 11:14 AM [facility] REPOSITORY TYPE CODE TESTS RESULT OUT OF RANGE REFERENCE UNITS LAB FIB 220-410 mg/dL 293 Fibrinogen-C lottable Performed By: #### HEMOGC, ICA, PTPTT, FIB, CHM7, IPB, MGO #### [facility] [address] [place] [id number] [facility] [address] [place] [id number] CHEM 7 Collected: 05/02/2018 Status: F Source: [facility] 11:14 AM [facility] REPOSITORY TYPE CODE TESTS RESULT OUT OF REFERENCE UNITS RANGE LAB BUN 7-22 mg/dL BUN 8 LAB NA 133-143 mmol/L Sodium 142 LAB K 3.5-5.0 mmol/L Potassium 3.7 LAB CL 98-108 mmol/L Chloride 107 LAB CO2 22-30 mmol/L Carbon Dioxide 23 LAB GLUC 70-99 mg/dL Glucose High 195 LAB CREA 0.50-1.20 mg/dL Creatinine 0.59 LAB GAP 7-17 mmol/L Anion Gap 16 LAB BC BUN/CREA Ratio 14 LAB [facility]SMC 278-305 mOsm/kg Osmolality 300 (Calc) LAB GFR >60 mL/min/1.73 sqM Est GFR,non >60 Fijian LAB GFRA >60 mL/min/1.73 sqM Est GFR, >60 Performed By: #### HEMOGC, ICA, PTPTT, FIB, CHM7, IPB, MGO #### [facility] [address] [place] [address] [place] [address] INORGANIC PHOSPHATE Collected: 05/02/2018 Status: F Source: [facility] 11:14 AM [facility] REPOSITORY TYPE CODE TESTS RESULT OUT OF REFERENCE UNITS RANGE LAB IP 2.2-4.6 mg/dL Low Inorg Phosphate 2.0 Performed By: #### HEMOGC, ICA, PTPTT, FIB, CHM7, IPB, MGO #### [facility] [address] [place] [id number] [place] [address] [address] [place] [id number] MAGNESIUM Collected: 05/02/2018 Status: F Source: [facility] 11:14 [facility] REPOSITORY TYPE CODE TESTS RESULT OUT OF REFERENCE UNITS RANGE LAB MG 1.6-2.6 mg/dL High Magnesium 2.8 Performed By: #### HEMOGC, ICA, PTPTT, FIB, CHM7, IPB, MGO #### [facility] [address] [place] [address] [facility] [address] [place], [place] [address] *BLOOD*GAS*PANEL 1 -RADHA Collected: 05/02/2018 Status: F Source: [facility] 10:22 AM [facility] REPOSITORY TYPE CODE TESTS RESULT OUT OF REFERENCE UNITS RANGE LAB PH 7.35-7.45 PH 7.37 LAB PCO2 32-48 mm Hg PCO2 40 LAB PO2 83-108 mm Hg PO2 173 High LAB BGH 34.9-44.3 % BLD GAS 36 HCT LAB BGNA 133-143 mmol/L Whole 138 Blood Sodium LAB BGK 3.5-5.0 mmol/L Whole 4.5 Blood Potassium LAB BGICA 4.60-5.30 mg/dL Whole 4.20 Low Bld Ionized CA LAB BGGLU 70-99 mg/dL WHOLE 141 High BLD GLUC LAB BGLACT 0.5-1.6 mmol/L Lactate, 1.0 Whole Blood LAB BASED 0-3.0 mmol/L Base 2.4 Deficit LAB OSAT 94-98 % O2 100 High Saturation LAB SPECBG Specimen Arterial type LAB COMMTG COMMENT Medical Device notified LAB BGHGB 11.4-15.2 g/dL BLD GAS 11.8 HGB LAB HCO3 22-26 mmol/L 23 Bicarbonate *BLOOD*GAS*PANEL 1 -RADHA Collected: 05/02/2018 Status: F Source: [facility] 10:03 AM [facility] REPOSITORY TYPE CODE TESTS RESULT OUT OF REFERENCE UNITS RANGE LAB PH 7.35-7.45 PH 7.33 Low LAB PCO2 32-48 mm Hg PCO2 45 LAB PO2 83-108 mm Hg PO2 140 High LAB BGH 34.9-44.3 % BLD GAS 38 HCT LAB BGNA 133-143 mmol/L Whole 139 Blood Sodium LAB BGK 3.5-5.0 mmol/L Whole 4.5 Blood Potassium LAB BGICA 4.60-5.30 mg/dL Whole 4.28 Low Bld Ionized CA LAB BGGLU 70-99 mg/dL WHOLE 136 High BLD GLUC LAB BGLACT 0.5-1.6 mmol/L Lactate, 0.7 Whole Blood LAB BASED 0-3.0 mmol/L Base 2.4 Deficit LAB OSAT 94-98 % O2 99 High Saturation LAB SPECBG Specimen Arterial type LAB COMMTG COMMENT Medical Device notified LAB BGHGB 11.4-15.2 g/dL BLD GAS 12.4 HGB LAB HCO3 22-26 mmol/L 22 Bicarbonate *BLOOD*GAS*PANEL 1 -RADHA Collected: 05/02/2018 Status: F Source: [facility] 9:29 AM [facility] REPOSITORY TYPE CODE TESTS RESULT OUT OF REFERENCE UNITS RANGE LAB PH 7.35-7.45 PH 7.33 Low LAB PCO2 32-48 mm Hg PCO2 45 LAB PO2 83-108 mm Hg PO2 160 High LAB BGH 34.9-44.3 % BLD GAS 37 HCT LAB BGNA 133-143 mmol/L Whole 138 Blood Sodium LAB BGK 3.5-5.0 mmol/L Whole 4.5 Blood Potassium LAB BGICA 4.60-5.30 mg/dL Whole 4.30 Low Bld Ionized CA LAB BGGLU 70-99 mg/dL WHOLE 156 High BLD GLUC LAB BGLACT 0.5-1.6 mmol/L Lactate, 0.6 Whole Blood LAB BASED 0-3.0 mmol/L Base 2.1 Deficit LAB OSAT 94-98 % O2 99 High Saturation LAB SPECBG Specimen Arterial type LAB COMMTG COMMENT Medical Device notified LAB BGHGB 11.4-15.2 g/dL BLD GAS 12.0 HGB LAB HCO3 22-26 mmol/L 23 Bicarbonate *BLOOD*GAS*PANEL 1 -RADHA Collected: 05/02/2018 Status: F Source: [facility] 8:02 AM [facility] REPOSITORY TYPE CODE TESTS RESULT OUT OF REFERENCE UNITS RANGE LAB PH 7.35-7.45 PH 7.41 LAB PCO2 32-48 mm Hg PCO2 37 LAB PO2 83-108 mm Hg PO2 195 High LAB BGH 34.9-44.3 % BLD 35 GAS HCT LAB BGNA 133-143 mmol/L Whole 140 Blood Sodium LAB BGK 3.5-5.0 mmol/L Whole 3.7 Blood Potassium LAB BGICA 4.60-5.30 mg/dL Whole 4.50 Low Bld Ionized CA LAB BGGLU 70-99 mg/dL WHOLE 173 High BLD GLUC LAB BGLACT 0.5-1.6 mmol/L 0.7 Lactate, Whole Blood LAB BASED 0-3.0 mmol/L Base 1.4 Deficit LAB OSAT 94-98 % O2 >100 High Saturation LAB SPECBG Arterial Specimen type LAB COMMTG COMMENT Medical Device notified LAB BGHGB 11.4-15.2 g/dL BLD 11.3 Low GAS HGB *HCG*POCT*DEVICE Collected: 05/02/2018 Status: F Source: [facility] 6:12 AM [facility] REPOSITORY TYPE CODE TESTS RESULT OUT OF REFERENCE UNITS RANGE LAB HCGMAN Negative Negative *HCG*URINE POCT *POC GLUCOSE BATTERY Collected: 05/02/2018 Status: F Source: [facility] 5:52 AM [facility] REPOSITORY TYPE CODE TESTS RESULT OUT OF REFERENCE UNITS RANGE LAB GLUP 70-99 mg/dL High Glucose (poc 103 device) Result Comment: No BRAVE per RN: PATIENT TYPE LAB PCSTYP *POC SAMPLE TYPE Venous Observed: 04/27/2018 Status: F Source: [facility] - 1:40 PM [facility]-OP [facility] REPOSITORY ABO/RH(D): O POSITIVE ANTIBODY SCREEN: NEGATIVE UNIT NUMBER: [id number] BLOOD COMPONENT TYPE: Apheresis Red Cells, Leukoreduced_[id number] STATUS OF UNIT: REL FROM ALLOC TRANSFUSION STATUS: OK TO TRANSFUSE CROSSMATCH RESULT: Electronically Compatible UNIT NUMBER: [id number] BLOOD COMPONENT TYPE: Apheresis Red Cells, Leukoreduced_[id number] STATUS OF UNIT: REL FROM ALLOC TRANSFUSION STATUS: OK TO TRANSFUSE CROSSMATCH RESULT: Electronically Compatible UNIT NUMBER: [id number] BLOOD COMPONENT TYPE: Red Cells, Leukoreduced_[id number] STATUS OF UNIT: REL FROM ALLOC TRANSFUSION STATUS: OK TO TRANSFUSE CROSSMATCH RESULT: Electronically Compatible UNIT NUMBER: [id number] BLOOD COMPONENT TYPE: Red Cells, Leukoreduced_[id number] STATUS OF UNIT: REL FROM ALLOC TRANSFUSION STATUS: OK TO TRANSFUSE CROSSMATCH RESULT: Electronically Compatible Performed By: #### XMPO #### [facility] [address] [place] [address] [facility] [address] [place] [address] URINALYSIS - CAMERA Collected: 04/27/2018 Status: F Source: [facility] 12:59 PM [facility] REPOSITORY TYPE CODE TESTS RESULT OUT OF RANGE REFERENCE UNITS LAB RESERVATIONS SALES AGENT Clear Appearance Urine Clear LAB SPGR 1.001-1.035 Specific [place] urine 1.010 LAB UGL Negative mg/dL Glucose Urine Negative LAB UKET Negative Ketones Urine Negative LAB UBLD Negative Blood Urine Abnormal Trace LAB UPH 5.0-7.0 pH Urine 6.5 LAB UPR Negative mg/dL Protein Urine Negative LAB UNTR Negative Nitrites Urine Negative LAB ULEU Negative Leukocyte Esterase Negative LAB COLR Yellow Color Yellow LAB UURO <2.0 EU/dL Urobilinogen 0.2 urine LAB UWBC 0-5 /HPF WBC Urine 0-5 LAB URBC 0-2 /HPF RBC Urine 0-2 LAB BACT Absent Bacteria Absent LAB EPIS /HPF Squamous Epithelial 1+ LAB UCOM COMMENT URINE None Performed By: #### URNC #### [facility] [address] [address] FREE T3 Collected: 04/27/2018 Status: F Source: [facility] 12:59 PM [facility] REPOSITORY TYPE CODE TESTS RESULT OUT OF RANGE REFERENCE UNITS LAB FT3 2.3-4.2 pg/mL Free T3 3.2 Performed By: #### FT3, HFP #### [place] [address] #### XLIPOB #### Reference lab information reported with result HEPATIC FUNCTION Collected: 04/27/2018 Status: F Source: [facility] 12:59 PM [facility] REPOSITORY TYPE CODE TESTS RESULT OUT OF REFERENCE UNITS RANGE LAB ALB 3.5-5.0 g/dL Albumin 4.5 LAB BILD <0.3 mg/dL Bilirubin Direct 0.2 LAB BILT <1.5 mg/dL Bilirubin Total 0.8 LAB ALP 32-126 U/L Alkaline Phosphatase 60 LAB ALT 9-48 U/L ALT 13 LAB AST 14-40 U/L AST 20 LAB TP 6.4-8.3 g/dL Total Protein 7.2 Performed By: #### FT3, HFP #### [facility] [address] [address] #### XLIPOB #### Reference lab information reported with result NMR LIPOPROFILE Collected: 04/27/2018 Status: F Source: [facility] 12:59 PM [facility] REPOSITORY TYPE CODE TESTS RESULT OUT OF REFERENCE UNITS RANGE LAB NMTHDL >=30.5 umol/L Low HDL-P (TOTAL) 26.5 LAB NMSLDL <=527 nmol/L High Small LDL-P 634 LAB XLDLSZ >=20.8 nm LDL Particle 20.5 Size LAB NMVLDL <=2.7 nmol/L Large VLDL-P 2.1 LAB NMS2LD <=527 nmol/L High Small LDL-P 634 LAB NMLHDL >=4.8 umol/L Low Large HDL-P 2.3 LAB NMVLDS <=46.6 nm VLDL Size 46.6 LAB NMLSZ >20.5 nm Low LDL Size 20.5 Result Comment: (NOTE) INTERPRETATIVE INFORMATION PARTICLE CONCENTRATION AND SIZE <--Lower CVD Risk Higher CVD Risk--> LDL AND HDL PARTICLES Percentile in Reference Population HDL-P (total) High 75th 50th 25th Low >34.9 34.9 30.5 26.7 <26.7 . Small LDL-P Low 25th 50th 75th High <117 117 527 839 >839 . LDL Size <-Large (Pattern A)-> <-Small (Pattern B)-> 23.0 20.6 20.5 19.0 . Small LDL-P and LDL Size are associated with CVD risk, but not after LDL-P is taken into account. . These assays were developed and their performance characteristics determined by [employer]. These assays have not been cleared by the [place] Food and Drug Administration. The clinical utility of these laboratory values have not been fully established. LAB NMHSZ >=9.2 nm Low HDL Size 8.4 LAB NMLPIR <=45 High LP-IR SCORE 67 Result Comment: (NOTE) INSULIN RESISTANCE / DIABETES RISK MARKERS <--Insulin Sensitive Insulin Resistant--> Percentile in Reference Population Large VLDL-P Low 25th 50th 75th High <0.9 0.9 2.7 6.9 >6.9 . Small LDL-P Low 25th 50th 75th High <117 117 527 839 >839 . Large HDL-P High 75th 50th 25th Low >7.3 7.3 4.8 3.1 <3.1 . VLDL Size Small 25th 50th 75th Large <42.4 42.4 46.6 52.5 >52.5 . LDL Size Large 75th 50th 25th Small >21.2 21.2 20.8 20.4 <20.4 . HDL Size Large 75th 50th 25th Small >9.6 9.6 9.2 8.9 <8.9 Insulin Resistance Score LP-IR SCORE Low 25th 50th 75th High <27 27 45 63 >63 . LP-IR Score is inaccurate if patient is non-fasting. . The LP-IR score is a laboratory developed index that has been associated with insulin resistance and diabetes risk and should be used as one component of a physician's clinical assessment. Neither the LP-IR score nor the subclasses listed above have been cleared by the [place] Food and Drug Administration. Test Performed by: [facility] [address] [place] [id number] LAB NMTLDL <1000 nmol/L LDL-P High (LDL Particle 1165 Number) Result Comment: (NOTE) Low < 1000 Moderate 1000 - 1299 Borderline-High 1300 - 1599 High 1600 - 2000 Very High > 2000 LAB XLDLC 0-99 mg/dL LDL-C (calculated) 92 Result Comment: (NOTE) . Optimal < 100 Above optimal 100 - 129 Borderline 130 - 159 High 160 - 189 Very high > 189 . . LDL-C is inaccurate if patient is non-fasting. LAB XHDL >39 mg/dL HDL-C 40 LAB XTRIG 0-149 mg/dL Triglycerides 62 LAB XCHOLT 100-199 mg/dL Total Cholesterol 144 Performed By: #### FT3, HFP #### [place] [address] #### XLIPOB #### Reference lab information reported with result Observed: 04/27/2018 Status: F Source: [facility] SCREEN: RESP STAPH 12:59 PM [facility] (HIGH RISK SURGERY) [facility] REPOSITORY NARES: Negative Negative This test was performed using a real time PCR assay. Results should be interpreted in conjunction with other clinical and laboratory findings. A positive result does not necessarily indicate the pr esence of viable organism. This test should not be used as a test of cure. For E-swab specimens, this test was developed and its performance characteristics determined by the Clinical Microbiology Laboratory at [facility]. It has not b een cleared or approved by the FDA.The laboratory is regulated under CLIA as qualified to perform high-complexity testing. This test is used for clinical purposes. It should not be regarded as investigational or for research. Performed By: #### SCRSB #### [place] [address] DS DNA, MULTIPLEX Collected: 04/19/2018 Status: F Source: [facility] 3:32 PM [facility] REPOSITORY TYPE CODE TESTS RESULT OUT OF RANGE REFERENCE UNITS LAB DSDNAT Negative Abnormal DS DNA POSITIVE Antibody LAB DSDNAQ 0-3 IU/mL High DS DNA Ab, 11 Quant Performed By: #### DSDNAB, ENAB, BYRON #### [place] [address] #### YHIST #### Reference lab information reported with result CESIA BATTERY, MULTIPLEX Collected: 04/19/2018 Status: F Source: [facility] 3:32 PM [facility] REPOSITORY TYPE CODE TESTS RESULT OUT OF RANGE REFERENCE UNITS LAB RNPT Negative ACUTE CARE NURSE Antibody Negative LAB SMT Negative [place] Antibody Negative LAB SSAT Negative Abnormal SSA Antibody POSITIVE LAB SSBT Negative SSB Antibody Negative Performed By: #### DSDNAB, ENAB, BYRON #### [facility] [address] [place] [address] [place] [address] #### YHIST #### Reference lab information reported with result ANTINUCLEAR ANTIBODY, Collected: 04/19/2018 Status: F Source: [facility] IFA 3:32 PM [facility] REPOSITORY TYPE CODE TESTS RESULT OUT OF REFERENCE UNITS RANGE LAB MEJIA Negative Antinuclear Antibody, IFA Negative Performed By: #### DSDNAB, ENAB, BYRON #### [facility] [address] [place] [address] [address] [place] [address] #### YHIST #### Reference lab information reported with result HISTONE AUTOANTIBODIES Collected: 04/19/2018 Status: F Source: [facility] 3:32 PM [facility] REPOSITORY TYPE CODE TESTS RESULT OUT OF REFERENCE UNITS RANGE LAB YHIST <1.0 U Histone Autoantibodies <1.0 Result Comment: (NOTE) REFERENCE RANGE: <1.0 Negative 1.0 to 1.5 Weak Positive 1.6 to 2.5 Moderate Positive >2.5 Strong Positive Test Performed by [facility], [facility], [address] [place] [address] Marques Yin M.D., Ph.D., Director of Laboratories , [place] [id number] Reported by [facility] Performed By: #### DSDNAB, ENAB, BYRON #### [facility] [address] [place] [address] [address] [place] [address] #### YHIST #### Reference lab information reported with result CT CHEST WITHOUT Observed: 04/19/2018 Status: F Source: [facility] CONTRAST 12:16 PM [facility] REPOSITORY EXAM: CT CHEST WITHOUT CONTRAST, 04/19/2018 09:40 AM COMPARISON: No Available Comparisons. CLINICAL INDICATIONS: preop cabg; TECHNIQUE: Axial CT images were reconstructed from the volumetric data set, from the thoracic inlet through the adrenal glands. No intravenous contrast was used. Coronal MIP images were also reconstructed. FINDINGS: Lungs and Pleura: The lungs are clear. No suspicious nodules. Lentiform nodules in the left major fissure are likely benign. No consolidation. No pleural fluid. Tracheobronchial tree: No abnormality. Mediastinum/Parul: No mediastinal or hilar lymphadenopathy. The thyroid appears to be of normal size and the esophagus grossly unremarkable. Axilla and Supraclavicular Regions: No axillary or supraclavicular adenopathy. Cardiovascular: The cardiac chambers are within normal limits. The pericardium is normal. There is a stent within the left anterior descending coronary artery. The aorta and its arch branch vessels are unremarkable. The pulmonary arteries are also unremarkable. Upper Abdomen: Prior cholecystectomy. The remainder of the visualized upper abdominal contents are unremarkable. Bones and Soft Tissue: No suspicious osseous lesion. IMPRESSION: Unremarkable CT scan of the chest other than stenting of the LAD coronary artery. I personally viewed and interpreted these images and I have reviewed and approved this report. HCG (QUAL), Collected: 04/19/2018 Status: F Source: [facility] URINE 5:05 AM [facility] REPOSITORY TYPE CODE TESTS RESULT OUT OF REFERENCE UNITS RANGE LAB UHCG Negative Beta HCG Negative (Qual), Urine Performed By: #### UHCG #### [facility] [place] [address] [place] [address] [place] [address] URINALYSIS REFLEX Collected: 04/19/2018 Status: F Source: [facility] CULTURE 5:05 AM [facility] REPOSITORY TYPE CODE TESTS RESULT OUT OF REFERENCE UNITS RANGE LAB RESERVATIONS SALES AGENT Clear Appearance Urine Clear LAB SPGR 1.001-1.035 Specific [place] urine 1.010 LAB UGL Negative mg/dL Glucose Urine Negative LAB UKET Negative Ketones Urine Negative LAB UBLD Negative Blood Urine Negative LAB UPH 5.0-7.0 pH Urine High 8.5 LAB UPR Negative mg/dL Protein Urine Negative LAB UNTR Negative Nitrites Urine Negative LAB ULEU Negative Leukocyte Esterase Negative LAB COLR Yellow Color Yellow LAB UURO <2.0 EU/dL Urobilinogen urine 1.0 LAB UWBC 0-5 /HPF WBC Urine 0-5 LAB URBC 0-2 /HPF RBC Urine 0-2 LAB BACT Absent Bacteria Absent LAB UCOM COMMENT URINE None LAB EPIS /HPF Squamous Epithelial 1+ Performed By: #### URIN1 #### [facility] [address] [place] [address] HEPATIC FUNCTION Collected: 04/19/2018 Status: F Source: [facility] 5:05 AM [facility] REPOSITORY TYPE CODE TESTS RESULT OUT OF REFERENCE UNITS RANGE LAB ALB 3.5-5.0 g/dL Albumin 3.9 LAB BILD <0.3 mg/dL Bilirubin Direct 0.1 LAB BILT <1.5 mg/dL Bilirubin Total 0.8 LAB ALP 32-126 U/L Alkaline Phosphatase 56 LAB ALT 9-48 U/L ALT 9 LAB AST 14-40 U/L AST 16 LAB TP 6.4-8.3 g/dL Total Protein 6.4 Performed By: #### HFP, FT4, TSH, PALB, A1CB #### [facility] [address] [place] [address] FREE T4 Collected: 04/19/2018 Status: F Source: [facility] 5:05 AM [facility] REPOSITORY TYPE CODE TESTS RESULT OUT OF RANGE REFERENCE UNITS LAB FT4 0.89-1.76 ng/dL Free T4 1.11 Performed By: #### HFP, FT4, TSH, PALB, A1CB #### [facility] [address] [place] [address] TSH, HIGH SENSITIVITY Collected: 04/19/2018 Status: F Source: [facility] 5:05 AM [facility] REPOSITORY TYPE CODE TESTS RESULT OUT OF REFERENCE UNITS RANGE LAB TSH 0.550-4.780 uIU/mL TSH, High High Sensitivity 5.146 Performed By: #### HFP, FT4, TSH, PALB, A1CB #### [facility] [address] [place] [id number] [place] [address] [place] [address] PREALBUMIN Collected: 04/19/2018 Status: F Source: [facility] 5:05 AM [facility] REPOSITORY TYPE CODE TESTS RESULT OUT OF REFERENCE UNITS RANGE LAB PALB 17-34 mg/dL High Prealbumin 37 Performed By: #### HFP, FT4, TSH, PALB, A1CB #### [facility] [address] [place] [address] [address] [place] [address] HEMOGLOBIN A1C Collected: 04/19/2018 Status: F Source: [facility] 5:05 AM [facility] REPOSITORY TYPE CODE TESTS RESULT OUT OF REFERENCE UNITS RANGE LAB A1C 4.7-5.6 % High Hemoglobin A1C 5.9 LAB EAG mg/dL Estimated 123 Average Glucose Performed By: #### HFP, FT4, TSH, PALB, A1CB #### [facility] [address] [place] [address] [place] [address] ECHOCARDIOGRAM Observed: 04/18/2018 Status: F Source: [facility] 12:36 PM [facility] REPOSITORY ? Left Ventricle: Chamber size is normal. Ejection fraction is low normal (50-55%). ? Right Ventricle: Chamber size is normal. Systolic function is normal. ? Normal atria ? No significant valvular abnormality. ? No echo/Doppler evidence for pulmonary hypertension. ? Diastolic function is abnormal consistent with impaired relaxation (grade I). ? No pericardial effusion. CBC,PLATELET,DIFFERENTIAL - CCL Collected: Status: F Source: [facility] 04/17/2018 11:01 [facility] REPOSITORY TYPE CODE TESTS RESULT OUT OF REFERENCE UNITS RANGE LAB WBC 3.99-11.19 K/uL WBC Count 6.29 LAB RBC 3.91-5.04 M/uL RBC Count 3.97 LAB HGB 11.4-15.2 g/dL Hemoglobin 13.5 LAB HCT 34.9-44.3 % Hematocrit 39.4 LAB MCV 79.6-97.7 fL Mean Cell 99.2 High Volume LAB MCH 25.9-33.9 pg Mean Cell 34.0 High Hgb LAB MCHC 31.4-35.9 g/dL Mean Cell 34.3 Hgb Conc LAB RDW 10.8-14.9 % RBC 12.4 Distribution LAB PLT 150-393 K/uL Platelet 321 Count LAB MPV 8.5-12.2 fL Mean 8.8 Platelet Volume LAB NRBC 0.0-0.2 /100 WBC NUCLEATED 0.0 RBC LAB DTYPE Electronic DIFFERENTIAL TYPE Differential LAB IGRE % IMMATURE 0.2 GRANS % LAB SEGS % NEUTROPHIL 74.0 SEGMENTED LAB LYM % LYMPHOCYTE 15.4 % LAB MON % MONOCYTE % 9.4 LAB EOS % *EOSINOPHIL 0.5 % LAB BASO % BASOPHIL % 0.5 LAB IGABS 0.00-0.08 K/uL IMMATURE <0.04 GRANS ABSOLUTE LAB SBANS 1.64-7.28 K/uL SEGS + 4.66 Bands,Absolute LAB ALYM 1.16-3.51 K/uL Abs Lymph 0.97 Low LAB AMONO 0.22-0.87 K/uL Abs [place] 0.59 LAB AEOS 0.00-0.42 K/uL Abs Eos <0.04 LAB ABASO 0.00-0.15 K/uL Abs Baso <0.04 Performed By: #### CBCDFC, CHM7, HDLT, MGO, PTPTT, TROP, BNP, A1CB #### [facility] [address] [place] [address] [address] [place] [address] CHEM 7 Collected: 04/17/2018 Status: F Source: [facility] 11:01 PM [facility] REPOSITORY TYPE CODE TESTS RESULT OUT OF REFERENCE UNITS RANGE LAB BUN 7-22 mg/dL BUN 11 LAB NA 133-143 mmol/L Sodium 139 LAB K 3.5-5.0 mmol/L Potassium 3.8 LAB CL 98-108 mmol/L Chloride 108 LAB CO2 22-30 mmol/L Low Carbon Dioxide 20 LAB GLUC 70-99 mg/dL Glucose High 104 LAB CREA 0.50-1.20 mg/dL Creatinine 0.62 LAB GAP 7-17 mmol/L Anion Gap 15 LAB BC BUN/CREA Ratio 18 LAB OSMC 278-305 mOsm/kg Osmolality 290 (Calc) LAB GFR >60 mL/min/1.73 sqM Est GFR,non >60 Fijian LAB GFRA >60 mL/min/1.73 sqM Est GFR, >60 Performed By: #### CBCDFC, CHM7, HDLT, MGO, PTPTT, TROP, BNP, A1CB #### [facility] [address] [place] [address] [place] [address] LIPID PROFILE Collected: 04/17/2018 Status: F Source: [facility] 11:01 [facility] REPOSITORY TYPE CODE TESTS RESULT OUT OF REFERENCE UNITS RANGE LAB PUJA <200 mg/dL Cholesterol High 207 Result Comment: [<200 mg/dL: Desirable] [200-239 mg/dL: Borderline High] [>239 mg/dL: High] LAB TRIGE <150 mg/dL Triglycerides 130 Result Comment: [<150 mg/dL: Desirable] [150-199 mg/dL: Borderline] [200-499 mg/dL: High] [>500 mg/dL: Very High] LAB HDLC >40.0 mg/dL HDL Cholesterol 46 Result Comment: [<40 mg/dL: Low (High Risk)] [>59 mg/dL: High (Low Risk)] LAB LDL 0-99 mg/dL Calculated LDL High Cholesterol 135 Result Comment: [<100 mg/dL: Optimal] [100-129 mg/dL: Near Optimal] [130-159 mg/dL: Borderline High] [160-189 mg/dL: High] [>189 mg/dL: Very High] LAB CHR <4.5 High Tot CHOL/HDL 4.5 Result Comment: [<4.5: Low risk] LAB NHCHOL <130 mg/dL Non HDL High Cholesterol 161 Performed By: #### CBCDFC, CHM7, HDLT, MGO, PTPTT, TROP, BNP, A1CB #### [facility] [address] [place] [address] [place] [address] MAGNESIUM Collected: 04/17/2018 Status: F Source: [facility] 11:01 [facility] REPOSITORY TYPE CODE TESTS RESULT OUT OF REFERENCE UNITS RANGE LAB MG 1.6-2.6 mg/dL Magnesium 2.0 Performed By: #### CBCDFC, CHM7, HDLT, MGO, PTPTT, TROP, BNP, A1CB #### [facility] [id number] [place] [address] [address] PT*PTT Collected: 04/17/2018 Status: F Source: [facility] 11:01 [facility] REPOSITORY TYPE CODE TESTS RESULT OUT OF RANGE REFERENCE UNITS LAB PT 11.9-14.2 sec PT 13.7 LAB INR 0.9-1.1 INR 1.0 LAB PTT 24.0-34.3 sec PTT 29.8 Performed By: #### CBCDFC, CHM7, HDLT, MGO, PTPTT, TROP, BNP, A1CB #### [facility] [address] [address] TROPONIN I Collected: 04/17/2018 Status: F Source: [facility] 11:01 [facility] REPOSITORY TYPE CODE TESTS RESULT OUT OF REFERENCE UNITS RANGE LAB TROP <0.11 ng/mL Troponin I <0.01 Performed By: #### CBCDFC, CHM7, HDLT, MGO, PTPTT, TROP, BNP, A1CB #### [facility] [address] [address] B-TYPE NATRIURETIC Collected: 04/17/2018 Status: F Source: [facility]PTIDE 11:01 [facility] REPOSITORY TYPE CODE TESTS RESULT OUT OF REFERENCE UNITS RANGE LAB BNP 0-100 pg/mL B-Type Natriuretic 7 Peptide Performed By: #### CBCDFC, CHM7, HDLT, MGO, PTPTT, TROP, BNP, A1CB #### [facility] [address] [address] HEMOGLOBIN A1C Collected: 04/17/2018 Status: F Source: [facility] 11:01 [facility] REPOSITORY TYPE CODE TESTS RESULT OUT OF REFERENCE UNITS RANGE LAB A1C 4.7-5.6 % High Hemoglobin A1C 5.9 LAB EAG mg/dL Estimated 123 Average Glucose Performed By: #### CBCDFC, CHM7, HDLT, MGO, PTPTT, TROP, BNP, A1CB #### [facility] [address] [place] [address] [facility] [address] [place], [place] [address] ,SERUM,HCG QUALI. Collected: Status: F Source: [facility] 04/17/2018 10:30 AM [facility] [place] TYPE CODE TESTS RESULT OUT OF REFERENCE UNITS RANGE LAB L700.6700 =>Qualitative mIU/mL Normal HCG Qual < 1 triggr LAB L700.7000 0-9 Nonpreg Negative Normal HCGSQUAL NEGATIVE Performed By: #### L700.6800 #### [facility] [address] [facility] [place], [address] CBC W/DIFF, AUTOMATED Collected: 04/17/2018 Status: F Source: [facility] 10:24 AM [facility] TYPE CODE TESTS RESULT OUT OF RANGE REFERENCE UNITS LAB L100.1000 4.4-11.0 K/mm3 Normal WBC 4.8 LAB L100.1200 4.2-5.4 M/mm3 Low RBC 4.14 LAB L100.1300 12.0-15.0 g/dl Normal HGB 13.6 LAB L100.1400 37-47 % Normal HCT 41.3 LAB L100.1500 81-99 fL High MCV 99.8 LAB L100.1600 27.0-32.0 pg High MCH 32.9 LAB L100.1700 32-36 g/gl Normal MCHC 32.9 LAB L100.1810 11.6-14.6 % Normal RDW CV 12.9 LAB L100.1820 35.1-43.9 fl High RDW SD 47.1 LAB L100.1900 150-450 K/mm3 Normal PLT 294 LAB L100.2000 6.2-12.0 fl Normal MPV 8.4 LAB L100.2100 47-70 % High NEUT% 72.9 LAB L100.2200 19-41 % Low LY% 16.5 LAB L100.2300 0-10 % Normal MONO% 9.4 LAB L100.2400 0-5 % Normal EO% 0.8 LAB L100.2500 0-1 % Normal BASO% 0.2 LAB L100.2550 0.0-0.9 % Normal IM GRAN % 0.200 Result Comment: IG% - Immature Granulocytes (promyelocytes, myelocytes and metamyelocytes) > 1% indicates that a LEFT SHIFT is Present. LAB L100.2620 2.0-7.7 X10 3/uL Normal Absolute Neut 3.5 LAB L100.2720 0.83-4.51 X10 3/ul Low Absolute Lymph 0.79 Performed By: #### L100.0100 #### [facility] [address] [place], [address] BASIC METABOLIC Collected: 04/17/2018 Status: F Source: [facility] PROFILE (BMP) 10:24 AM [facility] [place] TYPE CODE TESTS RESULT OUT OF RANGE REFERENCE UNITS LAB L501.0100 74-106 mg/dL High GLU 111 Result Comment: Fasting Glucose result from 100 to 125 mg/dL suggests IMPAIRED HOMEOSTASIS per A.D.A. criteria. Please note revised GLUCOSE reference range effective 2017. LAB L501.1000 7-18 mg/dL Normal BUN 8 LAB L501.1100 0.55-1.02 mg/dL Normal CREAT,SERUM 0.65 Result Comment: The validity of the calculated GFR AND GFRAA in patients over 70 years has not been determined. Clinical correlation is essential. LAB L501.1110 >60 mL/min Normal EST GFR 104 Result Comment: Non- GFR Calc LAB L501.1115 >60 mL/min Normal EST GFR - AA 126 Result Comment: GFR Calc LAB L501.1255 ml/min Normal Estimated CRCL 79.87 LAB L501.1300 10-20 RATIO Normal BUN/CRE 12.4 LAB L501.2200 8.5-10 mg/dL Normal .1 CA 9.0 LAB L501.5300 136-14 mmol/L Normal 5 NA 140 LAB L501.5600 3.5-5. mmol/L Normal 1 K 4.1 LAB L501.5900 98-107 mmol/L Normal CL 107 LAB L501.6100 21.0-3 mmol/L Normal 2.0 CO2 27.0 LAB L501.6200 5-15 Normal GAP 6 Performed By: #### L500.2500 #### [facility] [address] [place], [address] 12 LEAD EKG PERFORMED Observed: 04/07/2018 Status: F Source: [facility] 11:24 AM [facility] [address] [place] [address] 12 Lead EKG performed by [facility] 04/07/18 1124 MR#: [id number] Acct: [id number] Name: AMALIA RICHARDSON Rep #: [id number] : 1970 48 From: Bry Pelaez MD Attending Dr: Bry Pelaez MD Status: DEP AMB Ordering Dr: Bry Pelaez MD Date: 04/07/18 [place] [facility] [place] F C Admitted: B[facility]/12 Lead EKG performed by [facility] ECG Report Interpretation Sinus Rhythm -RSR(V1) -nondiagnostic. PROBABLY NORMALElectronically signed on 05/02/2018 at 16:24 by Bry Pelaez [employer] Version [id number] 05/02/18 1630 Date Bry Pelaez MD CC: Kenzie Torrez DO Date Dictated: 04/07/181123 Date Transcribed: 04/07/181123 Production Supv: CO Signed TROPONIN-I Collected: 04/07/2018 Status: F Source: [facility] 11:12 AM [facility] Order Comment: 'TROP' Serial specimen #1, #2, #3, or #4: 1 TYPE CODE TESTS RESULT OUT OF RANGE REFERENCE UNITS LAB L501.4010 <0.045 ng/mL Normal < 0.015 TROPONIN-I Result Comment: TROPONIN-I EXPECTED VALUES <0.045 Negative 0.045 - 0.590 Consistent with Cardiac Damage > OR = 0.600 Critical Value Not every elevated troponin is indicative of OR. These values should be used with clinical judgement in examining the patient's clinical picture for diagnosis. To establish a diagnosis of OR versus myocardial injury, there must be a demonstrated rise and/or fall in the troponin values, in addition to ischemic symptoms, EKG changes, new regional wall motion abnormality, and/or angiographical evidence. PLEASE NOTE: REFERENCE RANGES EDITED 17 Performed By: #### L501.4010 #### [facility] [address] [place], [address] CARDIOLOGY VISIT Observed: 03/24/2018 Status: F Source: [facility] 3:09 PM [facility] [place] [facility] [address] [place] [address] OFFICE VISIT Date of Service: 03/24/18 MR#: [id number] Acct: [id number] Name: AMALIA RICHARDSON Rep #: [id number] : 1970 Provider: Bry Pelaez MD Age/Sex: 48/F Location: [facility] Status: Signed HPI HPI Chief Complaint: Follow up Details: AMALIA RICHARDSON, is a 48 F who presents to the office today for a follow-up visit. As you know she had presented to the emergency room with chest discomfort and underwent an urgent cardiac catheterization with demonstrated high-grade 95% stenosis in the mid left anterior descending artery. She underwent angioplasty and stenting with a 2.25 x 38 Promus Synergy drug-eluting stent. Her ejection fraction was noted to be normal. Postoperatively she did well with no issues. You do remember that she did have significant side effects from the statins which manifest with a fever and abnormal liver function test. Her statins have been discontinued. Unfortunately she has developed a rash for which she is seeing the acquisition professional. At this particular time the working diagnosis is a post viral rash for which she has been taking intermittent steroid doses. She is scheduled to see him again soon for possible biopsy. She has had no neck arm or jaw discomfort suggest angina no dizziness or diaphoresis no near syncope or syncope she is been compliant with her medications. Her physical exam today demonstrates clear lung pierre regular rate and rhythm and no pedal edema. Intake Vital Signs03/24/18 Height 5 ft 1 in 03/24/18 Weight: 132 lb 03/24/18 Body Mass Index (BMI) 24.9 03/24/18 Blood Pressure 102/60 03/24/18 Respiratory Rate 16 03/24/18 Pulse Rate 68 Intake Visit Reasons: 3 M FU Allergies Sulfa (Sulfonamide Antibiotics) Allergy (Verified 03/24/18 14:31) Other tramadol HCl [From [facility]] Adverse Reaction (Verified 03/24/18 14:31) Other Medications Metoprolol(XL)Succ [Toprol Xl (Beta Malik)] 25 mg PO DAILY tab 12/20/17 [Rx Confirmed 03/24/18] aspirin 81 mg tablet,delayed release 81 mg PO DAILY #90 tab 12/23/17 [Rx Confirmed 03/24/18] omeprazole 20 mg capsule,delayed release 40 mg PO DAILY cap 01/11/18 [History Confirmed 03/24/18] ticagrelor 90 mg tablet 90 mg PO BID #60 tab 02/13/18 [Rx Confirmed 03/24/18] azathioprine 50 mg tablet 100 mg PO DAILY@0800 tab 03/24/18 [History Confirmed 03/24/18] sucralfate 1 gram tablet 1 g PO .qid PRN tab 03/24/18 [History Confirmed 03/24/18] [facility] Medical History Hypertension (Chronic) 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 (Acute) History of colitis (Acute) Surgical History History of coronary artery stent placement (Acute 12/19/17) gallbladder surgery (Acute) Family History Father Heart disease Mother Heart disease Other grandparents history of heart disease Social History Smoking Status: Former smoker alcohol intake: current details: social substance use type: does not use caffeine: Yes seatbelt use: always do you feel safe at home: Yes 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 [facility] OR ROS Const Const: Positive for other (Exercising 4 days w/o difficulty); negative for fatigue, weakness, difficulty sleeping, frequent falls, excessive sweating or headache(s) Eyes Eyes: Negative for loss of peripheral vision, transient loss of vision, blurry vision, tunnel vision or double vision ENT ENT: Negative for headache(s), dizziness, Nosebleed/epistaxis or balance problems Cardio Chest Pain: Yes Palpitations: No Edema: None Muscle aches with walking: None Resp Respiratory: Negative for SOB with activity, SOB at rest, SOB orthopnea\SOB lying down, paroxysmal nocturnal dyspnea or Cough GI GI: Negative nausea, heartburn, black,tarry stools or vomiting : Negative for hematuria Musc Musc: Negative for balance problems, muscle aches/ myalgia, muscle weakness or joint pain Skin Skin: Positive for rash (Was taking prednisone Rash on chest and back); negative non-healing lesions or unusual bruising Neuro Neuro: Negative for weakness, frequent falls, headache(s), blurry vision, double vision, dizziness, lightheadedness, orthostatic symptoms, near syncope, syncope or lack of coordination Vlad Hematologic/Lymphatic: Negative for easy bruising or easy bleeding Endo Endo: Negative for fatigue, excessive sweating or increased thirst/drinking Psych Psych: Negative for anxiety or depression Allergy Allergy/Immunology: Negative for hives, Positive for rash (Was taking prednisone Rash on chest and back) Cardiology Exam Const Appearance: cooperative, healthy appearing, well developed, well groomed and no acute distress Nutritional Appearance: well nourished and average body habitus Orientation: alert, awake and oriented x3 Head Head: normal to inspection, normocephalic and atraumatic Ears: hearing grossly normal bilaterally and external ears normal Nose: external nose normal, nasal mucous membranes and turbinates normal, nares normal, septum normal, no nasal discharge Face and Sinus: face symmetric Mouth: oral mucosae normal, tongue normal, oropharynx normal and moist mucous membranes Teeth and gingiva: dentition normal Throat: posterior oropharynx normal, tonsils normal and uvula midline Eyes General: appearance normal, both eyes and all related structures Eyelids: eyelids normal Conjunctivae: conjunctivae normal Pupils: PERRL, normal by confrontation and accommodation normal EOM: EOM intact bilaterally Neck Neck: normal visual inspection, trachea midline and no JVD JVD: +5 Carotids: normal carotid upstroke and bounding pulses Chest Chest inspection: normal inspection of the chest, symmetric chest movement and normal respiratory effort Auscultation: Bilateral: Clear to Auscultation Cardio Palpation: normal PMI Rate: regular rate Rhythm: regular rhythm Heart sounds: S1 normal, S2 normal and normal, physiologic split S2; negative rub, gallop or murmur GI GI: normal to inspection, soft, no hepatosplenomegaly and bowel sounds present Neuro General: alert, awake, oriented x3, no focal sensory deficit, gait normal and moves all extremities Skin Skin: no rashes or lesions noted Extremities Pulses: Normal: Right Femoral Pulse, Left Femoral Pulse, Right Dorsalis Pedis Pulse, Left Dorsalis Pedis Pulse, Right Posterior Tibial Pulse, Left Posterior Tibial Pulse, Right Radial Pulse, Left Radial Pulse Lower Extremity Edema: None: Bilateral Musculoskel Musculoskeletal: No joint tenderness Psych Psychological: normal affect Assessment AND Plan 1. History of coronary artery stent placement Z95.5 PCI-JAMIE-Mid LAD w/ 2.25 x 38 Promus Synergy 12/19/17 Plan She is status post angioplasty and stenting. She will remain at this time on the aspirin as well as the beta-malik and the ticagrelor. I have suggested to her that if the rash continues especially after biopsy we may need to switch her to clopidogrel. 2. Hypertension I10 Plan Her blood pressure appears to be under excellent control she is on a minimal dose of lisinopril and beta-malik and I would suggest discontinuing the lisinopril at this time. As you know it is being used mainly for endothelial function rather than hypertension. 3. Hyperlipidemia E78.5 Plan She does have a history of hyperlipidemia. Her most recent lipid profile on no statin demonstrated a total cholesterol 212, LDL 141 and HDL of 46. Her liver function tests have normalized with an AST of 18 and an ALT of 31 and alkaline phosphatase of 53. She has been on a stricter diet and I am suggesting that she continue on the same and will repeat the lipid profile in approximately 2 months. If it is still elevated I would suggest rosuvastatin 5-10 mg 3 times a week. Thank you for allowing me to participate in the care of your patient. 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1500 6.4-8.2 g/dL Normal T PROT 7.2 LAB L501.1800 3.2-5.0 g/dL Normal ALB 3.8 LAB L501.1950 2.2-4.2 g/dL Normal GLOB 3.4 LAB L501.4100 15-37 U/L Normal AST 18 LAB L501.4305 45-117 U/L Normal ALK P 53 LAB L501.4405 13-56 U/L Normal ALT 31 LAB L501.4600 0.20-1.00 mg/dL Normal T BILI 0.50 LAB L501.4700 0.00-0.30 mg/dL Normal D BILI 0.11 Performed By: #### L500.3400, L500.4100 #### [facility] [place], [address] LIPID PROFILE Collected: 03/23/2018 Status: F Source: [facility] 7:05 [facility] [place] [place] TYPE CODE TESTS RESULT OUT OF RANGE REFERENCE UNITS LAB L501.4900 200 mg/dL High CHOL 212 Result Comment: <200 mg/dL Desirable 200-240 mg/dL Borderline >240 mg/dL High Risk LAB L501.5000 mg/dL Normal TRIG 127 Result Comment: The drugs N-Acetylcysteine and Metamizole may falsely depress this assay. Serum Triglycerides Reference Interval Normal <150 mg/dL Borderline high 150 - 199 mg/dL High 200 - 499 mg/dL Very High > or = 500 mg/dL LAB L501.6400 mg/dL Normal HDL 46 Result Comment: The drugs N-Acetylcysteine and Metamizole may falsely depress this assay. Reference Range HDL <40 mg/dL Low HDL Cholesterol HDL >or= 60 mg/dL High HDL Cholesterol LAB L501.6500 0-130 mg/dL High LDL 141 LAB L501.6600 5-40 mg/dL Normal VLDL 25 Performed By: #### L500.3400, L500.4100 #### [facility] [address] 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 [place] [address] OFFICE VISIT Date of Service: 04/20/17 MR#: [id number] Acct: [id number] Name: AMALIA RICHARDSON Rep #: [id number] : 1970 Provider: ESTHER Diaz Age/Sex: 47/F Location: [facility] Status: Signed with Addenda ADDENDUM by ESTHER Diaz on 02/14/18 at 1759 Addendum entered and electronically signed by LIDIA Donald 02/14/18 17:59: Rectal exam was deferred. No masses palpated Assessment AND Plan 1. Encounter for gynecological examination without abnormal finding Z01.419; Z01.419 2. Menorrhagia with regular cycle N92.0; N92.0 3. Encounter for screening mammogram for malignant neoplasm of breast Z12.31 Plan - LIDIA Donald Completed breast and pelvic exam Reviewed diet and exercise Pap thin prep pap with HPV collected Mammogram ordered Colonoscopy 2017 Will get [facility] records to confirm mirena IUD placement. 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 DatName GA/WeeksOutcome Route [facility] Tamika Trevizo 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 Last PAP: is due History of abnormal PAP: no Last mammogram: follows yearly with Dr. Varsha Tiwari History of abnormal mammogram: benign diagnostic Light cyclic menses with mirena IUD. Unsure when placed-was done in OR with polypectomy per Dr. Lim at [facility] and denies sexual concerns Female Reproductive History Last Menstral Period: 04/04/17 ROS Const Constitutional: Denies fatigue, weight gain or weight loss Cardio Card: Denies chest pain Resp Resp: Denies cough or shortness of breath with activity GI GI: Denies abdominal pain, constipation, change in stools, vomiting or bloating : Reports as per HPI; denies urinary frequency, pelvic pain, urinary urgency, vaginal discharge, vaginal itching, urinary incontinence or difficulty urinating Exam Const General: cooperative, healthy appearing, no acute distress, well developed Orientation: alert, oriented to person, oriented to place HENMA Head: normal to inspection Neck Neck: normal visual inspection Thyroid: thyroid normal Lymphatic: no lymphadenopathy noted Chest Breast inspection: normal inspection of the breasts, normal inspection of the axillae Breast palpation: normal palpation of the breasts, normal palpation of the axillae, no axillary lymphadenopathy Resp Effort AND Inspection: normal respiratory effort Auscultation: clear to auscultation bilaterally Cardio Rate: regular rate Rhythm: regular rhythm GI Palpation: soft, nontender, no masses Rectal Exam: mass, deferred External Female Exam: normal external appearance, normal appearance of the urethra Urethra: normal appearance of the urethra, normal palpation Speculum Exam - Vagina: normal appearance of the vagina, normal vaginal discharge Speculum Exam - Cervix: normal appearance of the cervix, other (short IUD strings. Pap collected) Bimanual Exam- Vagina AND Uterus: normal bimanual exam, uterine size normal, uterine shape normal, uterus non-tender Bimanual Exam- Adnexa, other: normal adnexae, no adnexal masses, adnexae non-tender, pelvic support normal Pelvic Support: normal Neuro General: alert, oriented x3 Psych Affect: normal affect Assessment AND Plan 1. Encounter for gynecological examination without abnormal finding Z01.419; Z01.419 2. Menorrhagia with regular cycle N92.0; N92.0 3. Encounter for screening mammogram for malignant neoplasm of breast Z12.31 Plan Completed breast and pelvic exam Reviewed diet and exercise Pap thin prep pap with HPV collected Mammogram ordered Colonoscopy 2017 Will get [facility] records to confirm mirena IUD placement. She is undecided if wants another mirena since large polyp was removed prior to placement which may have caused heavy menses previously RTO 1 year, prn with problems Jazzy Diaz ANALYTICS CONSULTANT Orders Orders: 04/20/17 1546 <Electronically signed by Jazzy MURILLO> Date Jazzy Diaz NP-C Cosigner Signature: Date (if applicable) CC: URGENT CARE VISIT Observed: 02/08/2018 Status: F Source: [facility] RE[facility] 12:52 PM [facility] [address] [place] [address] 6 [place] [address] OFFICE VISIT Date of Service: 02/08/18 MR#: [id number] Acct: [id number] Name: AMALIA RICHARDSON Rep #: [id number] : 1970 Provider: Lul REESE Age/Sex: 48/F Location: [facility] Status: Signed Intake Vital Signs02/08/18 Height 5 ft 1 in 02/08/18 Weight: 132 lb 02/08/18 Body Mass Index (BMI) 24.9 02/08/18 Blood Pressure 112/64 Intake Visit Reasons: RASH CHEST/SHOULDERS /BACK Chief Complaint: RASH Care Director Required: No Accompanied by: SELF Is patient in pain?: No Allergies Sulfa (Sulfonamide Antibiotics) Allergy (Verified 02/08/18 12:41) Other tramadol HCl [From [facility]] Adverse Reaction (Verified 02/08/18 12:41) Other Medications Metoprolol(XL)Succ [Toprol Xl (Beta Malik)] 25 mg PO DAILY tab 12/20/17 [Rx Confirmed 02/08/18] Ticagrelor [Brilinta] 90 mg PO BID tab 12/20/17 [Rx Confirmed 02/08/18] aspirin 81 mg tablet,delayed release 81 mg PO DAILY #90 tab 12/23/17 [Rx Confirmed 02/08/18] Azathioprine [Imuran] 150 mg PO DAILY@0800 01/10/18 [History Confirmed 02/08/18] lisinopril 5 mg tablet 2.5 mg PO DAILY #90 tab 01/11/18 [Rx Confirmed 02/08/18] omeprazole 20 mg capsule,delayed release 40 mg PO DAILY cap 01/11/18 [History Confirmed 02/08/18] sucralfate 1 gram tablet 1 g PO .qid tab 01/11/18 [History Confirmed 02/08/18] clotrimazole-betamethasone 1 %-0.05 % topical cream 1 applic TOPICAL BID 28 Days #45 g 02/08/18 [Rx Confirmed 02/08/18] [facility] Medical History Hypertension (Chronic) 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 (Acute) History of colitis (Acute) Surgical History History of coronary artery stent placement (Acute 12/19/17) gallbladder surgery (Acute) Family History Father Heart disease Mother Heart disease Other grandparents history of heart disease Social History Smoking Status: Former smoker alcohol intake: current details: social substance use type: does not use caffeine: Yes seatbelt use: always do you feel safe at home: Yes 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 Patient notes rash initially presented to the anterior chest wall between breasts and has slowly spread to the anterior superior chest around the posterior neck upper aspects of both arms and bilateral anterior thighs. She knows all affected areas are very pruritic. She notes no other members in household with similar complaints. She notes no new detergents, lotions, or exposures. She notes no complaints of fever, chills, sweats. She notes no other associated symptoms and no other alleviating or aggravating factors. ROS Const Constitutional: No other (ROS negative x10 other than as noted above) Exam Const General: cooperative, healthy appearing, no acute distress, comfortable Nutritional Appearance: average body habitus Orientation: alert, awake, oriented x3 Neck Neck: normal visual inspection, full ROM, no lymphadenopathy Chest Chest palpation AND inspection: normal inspection of the chest Resp Effort AND Inspection: normal respiratory effort, able to speak in complete sentences, symmetric chest movement Cardio Rate: regular rate Pulses: radial pulses present GI Inspection: normal to inspection Skin Lesions: lesion noted (See other below) Rashes: no rashes Other: Approximately 3-5 mm erythematous raised border lesions and clustered formations to anterior chest posterior neck bilateral upper extremities. Patient also notes in presentation to bilateral anterior thighs, though this was not visualized by myself today. Neuro General: alert, awake, oriented x3, gait normal Cognition: normal cognition Speech: speech normal Gait: normal gait Motor: muscle tone normal throughout Sensory Exam: no sensory deficits noted Psych Appearance: grossly normal Mental Status: mental status grossly normal Mood: congruent mood Affect: normal affect Speech and Movement: speech and movement normal Attitude: cooperative Thought Process: normal Thought Content: normal Judgment: judgment good Assessment AND Plan Problems 1. Tinea corporis B35.4 Plan Lotrisone cream as prescribed today. Appropriate skin care and clothing/linen care as instructed today. Follow-up with PCP in 1-2 weeks should symptoms not improve, sooner should symptoms worsen or any other concerns develop. Patient states acknowledging understanding all the above. This note was generated with Sonocine dictation software. It may contain incorrect words, spelling, and punctuation that were not noted in checking the note before signing. Medications New: clotrimazole-betamethasone 1-0.05 % (Lotrisone)1 applic Topical BID 4 weeks 45 grams 2RF to affected areas Coding Level of Care Code Off vis,est,level 3 Diagnoses Tinea corporis B35.4 02/08/18 1252 <Electronically signed by Lul REESE> Date Lul REESE Cosigner Signature: Date (if applicable) CC: LIVER PROFILE Collected: 02/03/2018 Status: F Source: [place] 9:16 AM [facility] [place] TYPE CODE TESTS RESULT OUT OF RANGE REFERENCE UNITS LAB L501.1500 6.4-8.2 g/dL Normal T PROT 7.1 LAB L501.1800 3.2-5.0 g/dL Normal ALB 3.8 LAB L501.1950 2.2-4.2 g/dL Normal GLOB 3.3 LAB L501.4100 15-37 U/L Normal AST 19 LAB L501.4305 45-117 U/L Normal ALK P 105 LAB L501.4405 13-56 U/L Normal ALT 32 LAB L501.4600 0.20-1.00 mg/dL Normal T BILI 0.60 LAB L501.4700 0.00-0.30 mg/dL Normal D BILI 0.13 Performed By: #### L500.3400 #### [facility] [address] [place], [address] ECHOCARDIOGRAM COMPLETE Observed: 01/20/2018 Status: F Source: [place] 10:14 PM [facility] [place] [facility] Cardiovascular Services [address] [place] [address] Echo Complete 01/20/18 1303 MR#: [id number] Acct: [id number] Name: AMALIA RICHARDSON Rep #: [id number] : 1970 48 From: Bry Pelaez MD Attending Dr: Bry Pelaez MD Status: REG CLI Ordering Dr: Bry Pelaez MD Date: 01/20/18 Location: [facility] Sex: F C Admitted: Reason For Study: ABN EKG Procedure This was a 2D Doppler, Color Flow transthoracic echocardiogram. Exam performed in department. Left Ventricle Normal LV size. Left ventricular systolic function is normal. The estimated ejection fraction is 55 %. No evidence for diastolic dysfunction. No regional wall motion abnormalities noted. Right Ventricle Normal RV size. Normal systolic function. Atria Normal left atrium. Normal right atrium. Mitral Valve Normal mitral valve. Tricuspid Valve Normal tricuspid valve. Mild tricuspid valve insufficiency. Pulmonary artery systolic pressure is 25 mmHg. Aortic Valve Normal aortic valve. Pulmonic Valve Normal pulmonic valve. Great Vessels Normal aortic root. The pulmonary artery is normal size. Normal inferior vena cava. Pericardium/Pleural No pericardial effusion. MMode/2D Measurements AND Calculations LVIDd: 4.5 cm IVSd: 0.90 cm Ao root diam: 2.9 cm LVIDs: 3.1 cm LVPWd: 0.93 cm LA dimension: 3.1 cm FS: 32.1 % LAV(MOD-bp): 44.5 ml LA A4 area: 15.9 cm2 RA A4 area: 9.9 cm2 LAV(MOD-bp) Indexed: 27.8 ml/m2 LAV(MOD-sp2): 43.0 ml LAV(MOD-sp4): 41.5 ml Doppler Measurements AND Calculations MV E max len: 79.7 cm/sec Lat Peak E' Len: 12.3 cm/sec Med Peak E' Len: 8.3 cm/sec MV A max len: 54.9 cm/sec E/E' lat: 6.5 E/E' med: 9.6 MV E/A: 1.5 Ao V2 max: 107.9 cm/sec LV V1 max: 96.8 cm/sec PA V2 max: 95.1 cm/sec Ao max P.7 mmHg LV V1 max P.8 mmHg TR max len: 230.7 cm/sec TR max P.3 mmHg Interpretation Summary Normal LV size. Left ventricular systolic function is normal. The estimated ejection fraction is 55 %. No evidence for diastolic dysfunction. Mild tricuspid valve insufficiency. Ordering Physician: Bry Pelaez Referring Physician: Kenzie Torrez Performed By: Radha Blue, RDCS, RVT 01/20/182212 Date Bry Pelaez MD CC: Bry Pelaez MD; Kenzie Torrez DO Date Dictated: 01/20/18 1303 Date Transcribed: 01/20/182212 Production Supv: Signed LIVER PROFILE Collected: 01/20/2018 Status: F Source: [place] 7:42 AM [facility] Order Comment: Comments: SEND OUT PROMETHEUS, WB LAV TUBE, REF, SHIP WITH COLD PACK TYPE CODE TESTS RESULT OUT OF RANGE REFERENCE UNITS LAB L501.1500 6.4-8.2 g/dL Normal T PROT 7.1 LAB L501.1800 3.2-5.0 g/dL Normal ALB 3.6 LAB L501.1950 2.2-4.2 g/dL Normal GLOB 3.5 LAB L501.4100 15-37 U/L High AST 61 LAB L501.4305 45-117 U/L High ALK P 304 LAB L501.4405 13-56 U/L High ALT 127 LAB L501.4600 0.20-1.00 mg/dL Normal T BILI 0.40 LAB L501.4700 0.00-0.30 mg/dL Normal D BILI 0.13 Performed By: #### L500.3400 #### [facility] [address] [place], [address] MISCELLANEOUS LAB Collected: 01/20/2018 Status: F Source: R[place] PROCEDURE 7:42 AM [facility] Order Comment: Comments: SEND OUT PROMETHEUS, WB LAV TUBE, REF, SHIP WITH COLD PACK Test(s) Ordered: SEND OUT PROMETHEUS, WB LAV TUBE, REF TYPE CODE TESTS RESULT OUT OF RANGE REFERENCE UNITS LAB L801.1541 Normal [facility] [facility] TEST Result Comment: Scanned image report available in EMR Performed By: #### L801.1541 #### [facility] [address] [place], [address] 12 LEAD ELECTROCARDIOGRAM Observed: 01/16/2018 Status: F Source: [place] 3:53 PM [facility] [place] [place] Cardi[facility] Services [address] [place] [address] 12 Lead EKG 01/10/18 1234 MR#: [id number] Acct: [id number] Name: AMALIA RICHARDSON Rep #: [id number] : 1970 48 From: Bry Pelaez MD Attending Dr: Jacob Tiwari MD Status: DEP [facility] [place] Ordering Dr: Jacob Tiwari MD Date: 01/10/18 Location: EN Sex: F C Admitted: Test Reason : Blood Pressure : / mmHG Vent. Rate : 080 BPM Atrial Rate : 080 BPM P-R Int : 164 ms QRS Dur : 096 ms QT Int : 366 ms P-R-T Axes : 058 -12 077 degrees QTc Int : 422 ms Normal sinus rhythm Normal ECG When compared with ECG of 20-DEC-2017 05:28, No significant change was found Confirmed by BRY PELAEZ MD ([id number]), electronic news gathering editor KIERSTEN ESCOBAR ([id number]) on 01/16/2018 3:52:52 PM Referred By: Jacob Tiwari Confirmed By:BRY PELAEZ MD 01/16/18 1552 Date Bry Pelaez MD CC: Kenzie Torrez DO; Jacob Tiwari MD Signed EMERGENCY DEPARTMENT Observed: 01/12/2018 Status: F Source: [place] SUMMARY 11:39 PM [facility] [place] [facility] Medical Records Department [address] [place] [address] Emergency Department Summary 01/12/18 192 MR#: [id number] Acct: [id number] Name: AMALIA RICHARDSON Rep #: [id number] : 1970 48 From: Marge Peralta MD PCP: Kenzie Torrez DO Status: DEP ER - ER Visit Summary Date of Service: 01/12/18 Chief Complaint: Abdominal pain, fever History of Present Illness: The patient is a 48 F who had a cardiac stent placed December 19. She just started cardiac rehab over the past week or so. Over the past 2 weeks she has had occasional epigastric pain and nausea. 2 days ago she was flushed, sweating, developed fever and worsened epigastric pain. She had an EGD performed Dr. Tiwari that showed mild gastritis. Yesterday her fever continued and she was seen by Dr. Pelaez. Her symptoms are not believed to be related to cardiac origin. She had a chest x-ray and a CT the abdomen and pelvis done yesterday that were pretty unremarkable. Her LFTs however do seem to be climbing Today she is had continued symptoms. She reports foul-smelling gas but is having normal bowel movements with formed stool. She denies blood in her stool. Past history significant for coronary disease, hypertension, ulcerative colitis. She has been well controlled on Imuran for some time. She has had prior cholecystectomy. Physical Examination: Vital signs are grossly unremarkable. Temperature here is 99.3. Patient is sitting upright in bed. She appears ill but not toxic. Head and neck examination grossly unremarkable. Heart is regular rate and rhythm. Lung sounds are clear. Abdomen is soft with mild tenderness in the left lower quadrant. There is no guarding or rebound. Hypoactive bowel sounds are noted throughout. Test Results: CBC was a white count of 4.1 with 78% neutrophils. Chemistry studies normal. LFTs reveal an alk phos of 250 which is up when compared to yesterday's labs. ALT is 122 which is slightly decreased from yesterday's labs. AST is 101 which is improved from yesterday's labs. Blood cultures were sent. I also sent an acute hepatitis panel. Emergency Department Course and Treatment: Patient was initially given IV fluids, Zofran, and fentanyl. Right upper quadrant ultrasound is done that shows changes consistent with prior cholecystectomy. There is no evidence of right upper quadrant disease. Patient was complaining of generalized headache. She was given Toradol, Reglan, Benadryl, and IV fluids. On repeat evaluation at this time headache is improved. I discussed with her the hepatitis panel will be pending and I will not have results for that tonight. Dr. Tiwari had called and advised the patient was coming in and provided history. He is to be in touch with Dr. Khan tomorrow about her current findings. Patient is comfortable with this plan. Treatment Plan: [] Disposition: Discharge Impression: 1. Fever, uncertain etiology 2. Hepatitis, report pending This note was generated with Sonocine dictation software. It may contain incorrect words, spelling, and punctuation that were not noted in review of the chart prior to signing ED Disposition - Plan for ED Patient: Disposition: Home or Assisted Living Chief Complaint: Abd Pain Instructions: ED Fever Unconf Cause, ED Hepatitis Cause Unkn Test Pen Referrals: Jacob Tiwari MD [STAFF PHYSICIAN] - What to do if you have Problems For any increased pain, shortness of breath, bleeding, nausea or vomiting, chest pain, or any unexpected problems, contact your Primary Care Provider. Call [facility] ([phone]) or report to the closest Emergency Room. Call 911 if necessary. 01/12/18 7590 <Electronically signed by Marge Peralta MD> Date Marge Peralta MD Cosigner Signature (If Indicated): Date CC: Kenzie Torrez DO DISCHARGE INSTRUCTION Observed: 01/12/2018 Status: F Source: [place] 11:30 PM [facility] [place] [facility] Medical Records Department [address] [place] [address] Discharge Instruction 01/12/18 2329 MR#: [id number] Acct: [id number] Name: AMALIA RICHARDSON Rep #: [id number] : 1970 48 From: Marge Peralta MD PCP: Kenzie Torrez DO Status: REG ER ED Disposition - Plan for ED Patient: Disposition: Home or Assisted Living Chief Complaint: Abd Pain Instructions: ED Fever Unconf Cause, ED Hepatitis Cause Unkn Test Pen Referrals: Jacob Tiwari MD [STAFF PHYSICIAN] - What to do if you have Problems For any increased pain, shortness of breath, bleeding, nausea or vomiting, chest pain, or any unexpected problems, contact your Primary Care Provider. Call [facility] ([phone]) or report to the closest Emergency Room. Call 911 if necessary. 01/12/18 2330 <Electronically signed by Marge Peralta MD> Date Magre Peralta MD Cosigner Signature (If Indicated): Date CC: Kenzie Torrez DO HEPATITIS PANEL ACUTE Collected: 01/12/2018 Status: F Source: [place] 11:10 PM [facility] [place] [place] TYPE CODE TESTS RESULT OUT OF RANGE REFERENCE UNITS LAB L3100.0200 Negative Normal HEP A Negative IgM 6734 LAB L3100.0400 Negative Normal HB Negative SURF AG LAB L3100.0440 Negative Normal HB Negative CORE [id number] LAB L3100.0650 0.0-0.9 s/co ratio Normal HEP C <0.1 AB Result Comment: Negative: < 0.8 Indeterminate: 0.8 - 0.9 Positive: > 0.9 The CDC recommends that a positive HCV antibody result be followed up with a HCV Nucleic Acid Amplification test (549498). Performed at: [address] [id number] Assistant Athletic Trainer: Keron Rogers PhD, Phone: [phone] Performed By: #### L3000.0375 #### [facility] (refer to report for specific site) refer to report for address and phone number Observed: 01/12/2018 Status: F Source: ROCKY CULTURE, BLOOD (WB) 8:11 PM [facility] [place] BC No growth in 5 days. Performed By: #### M200.1000 #### [facility] [address] [place], [place], [address] CBC W/DIFF, AUTOMATED Collected: 01/12/2018 Status: F Source: [place] 8:05 PM [facility] [place] [place] TYPE CODE TESTS RESULT OUT OF RANGE REFERENCE UNITS LAB L100.1000 4.4-11.0 K/mm3 Low WBC 4.1 LAB L100.1200 4.2-5.4 M/mm3 Low RBC 4.01 LAB L100.1300 12.0-15.0 g/dl Normal HGB 13.0 LAB L100.1400 37-47 % Normal HCT 38.0 LAB L100.1500 81-99 fL Normal MCV 94.8 LAB L100.1600 27.0-32.0 pg High MCH 32.4 LAB L100.1700 32-36 g/gl Normal MCHC 34.2 LAB L100.1810 11.6-14.6 % Normal RDW CV 12.8 LAB L100.1820 35.1-43.9 fl High RDW SD 44.6 LAB L100.1900 150-450 K/mm3 Normal PLT 188 LAB L100.2000 6.2-12.0 fl Normal MPV 9.2 LAB L100.2100 47-70 % High NEUT% 78.7 LAB L100.2200 19-41 % Low LY% 9.2 LAB L100.2300 0-10 % Normal MONO% 5.1 LAB L100.2400 0-5 % High EO% 6.5 LAB L100.2500 0-1 % Normal BASO% 0.5 LAB L100.2550 0.0-0.9 % Normal IM GRAN % 0.000 Result Comment: IG% - Immature Granulocytes (promyelocytes, myelocytes and metamyelocytes) > 1% indicates that a LEFT SHIFT is Present. LAB L100.2620 2.0-7.7 X10 3/uL Normal Absolute Neut 3.3 LAB L100.2720 0.83-4.51 X10 3/ul Low Absolute Lymph 0.38 LAB L100.4500 Normal SMEAR COMMENT SCANNED Result Comment: LYMPHOPENIA NOTED Performed By: #### L100.0100 #### [facility] [address] [place], [place], [id number] COMPREHENSIVE METABOLIC Collected: 01/12/2018 Status: F Source: ROCKY BANKS 8:05 PM [facility] [place] TYPE CODE TESTS RESULT OUT OF RANGE REFERENCE UNITS LAB L501.0100 74-106 mg/dL Normal GLU 93 Result Comment: Please note revised GLUCOSE reference range effective 2017. LAB L501.1000 7-18 mg/dL Normal BUN 9 LAB L501.1100 0.55-1.02 mg/dL Normal CREAT,SERUM 0.73 Result Comment: The validity of the calculated GFR AND GFRAA in patients over 70 years has not been determined. Clinical correlation is essential. LAB L501.1110 >60 mL/min Normal EST GFR 91 Result Comment: Non- GFR Calc LAB L501.1115 >60 mL/min Normal EST GFR - AA 110 Result Comment: GFR Calc LAB L501.1255 ml/min Normal Estimated CRCL 71.12 LAB L501.1300 10-20 RATIO Normal BUN/CRE 12.4 LAB L501.1500 6.4-8. g/dL Normal 2 T PROT 7.6 LAB L501.1800 3.2-5. g/dL Normal 0 ALB 3.8 LAB L501.1950 2.2-4. g/dL Normal 2 GLOB 3.8 LAB L501.2000 0.9-2. RATIO Normal 4 A/G 1.0 LAB L501.2200 8.5-10 mg/dL Normal .1 CA 8.9 LAB L501.4100 15-37 U/L High AST 101 LAB L501.4305 45-117 U/L High ALK P 250 LAB L501.4405 13-56 U/L High ALT 122 LAB L501.4600 0.20-1 mg/dL Normal .00 T BILI 0.90 LAB L501.5300 136-14 mmol/L Normal 5 NA 138 LAB L501.5600 3.5-5. mmol/L Normal 1 K 3.6 LAB L501.5900 98-107 mmol/L Normal CL 102 LAB L501.6100 21.0-3 mmol/L Normal 2.0 CO2 29.0 LAB L501.6200 5-15 Normal GAP 7 Performed By: #### L500.4050 #### [facility] [address] [place], [address] Observed: 01/12/2018 Status: F Source: DASSEL CULTURE, BLOOD (WB) 8:05 PM [facility] BC No growth in 5 days. Performed By: #### M200.1000 #### [facility] [address] [place], [address] ABDOMEN LIMITED Observed: 01/12/2018 Status: F Source: [place] 7:28 PM [facility] Imaging Services [address] [place] [address] Abdomen Limited MR#: [id number] Acct: [id number] Name: AMALIA RICHARDSON Rep #: [id number] : 1970 F 48 From: Edith Escobar MD PCP: Kenzie Torrez DO Status: REG ER Study: Abdomen Limited Date of Exam: 01/12/18 Exam# [id number] Ordering Dr: Marge Peralta MD STUDY: ABDOMINAL ULTRASOUND - RIGHT UPPER QUADRANT REASON FOR VISIT: Female, 48 years old. Elevated liver enzymes. TECHNIQUE: Ultrasound evaluation of the right upper quadrant was performed with real-time and static de la vega-scale imaging. TECHNICAL QUALITY: Adequate. COMPARISON: None. FINDINGS: Liver: The liver measures 16.1 cm. There is normal echogenicity of the liver. The bile ducts are within normal limits. There is hepatic color flow. The direction of portal flow is hepatopetal. There is no demonstrated mass lesion. Gallbladder: The patient is status post cholecystectomy. Common Bile Duct (C.B.D.): The common bile duct measures 4.4 mm. Pancreas: There is diffuse atrophy of the pancreas. There is increased echogenicity of the pancreas. There is no demonstrated pancreatic mass or cyst. Right Kidney: Normal size of the right kidney. The right kidney measures 11.1 x 3.8 x 4.9 cm. Normal renal cortex. The right cortex measures 1.1 cm. There is no demonstrated renal mass or cyst. There is no right hydronephrosis. US/Abdomen Limited IMPRESSION: 1. Cholecystectomy. 2. No sonographic evidence of acute right upper quadrant abdominal disease. Electronically Signed: Edith Escobar MD at 21:10 EDT , Service support , CC: Marge Peralta MD; Kenzie Torrez DO Production Supv: Signed LIVER PROFILE Collected: 01/11/2018 Status: F Source: [place] 5:14 PM [facility] [place] TYPE CODE TESTS RESULT OUT OF RANGE REFERENCE UNITS LAB L501.1500 6.4-8.2 g/dL Normal T PROT 8.1 LAB L501.1800 3.2-5.0 g/dL Normal ALB 4.0 LAB L501.1950 2.2-4.2 g/dL Normal GLOB 4.1 LAB L501.4100 15-37 U/L High AST 135 LAB L501.4305 45-117 U/L High ALK P 193 LAB L501.4405 13-56 U/L High ALT 127 LAB L501.4600 0.20-1.00 mg/dL Normal T BILI 0.90 LAB L501.4700 0.00-0.30 mg/dL Normal D BILI 0.28 Performed By: #### L500.3400, L500.4100 #### [facility] [address] [place], [address] LIPID PROFILE Collected: 01/11/2018 Status: F Source: [place] 5:14 PM [facility] [place] TYPE CODE TESTS RESULT OUT OF RANGE REFERENCE UNITS LAB L501.4900 200 mg/dL Normal CHOL 80 Result Comment: <200 mg/dL Desirable 200-240 mg/dL Borderline >240 mg/dL High Risk LAB L501.5000 mg/dL Normal TRIG 85 Result Comment: The drugs N-Acetylcysteine and Metamizole may falsely depress this assay. Serum Triglycerides Reference Interval Normal <150 mg/dL Borderline high 150 - 199 mg/dL High 200 - 499 mg/dL Very High > or = 500 mg/dL LAB L501.6400 mg/dL Low HDL 30 Result Comment: The drugs N-Acetylcysteine and Metamizole may falsely depress this assay. Reference Range HDL <40 mg/dL Low HDL Cholesterol HDL >or= 60 mg/dL High HDL Cholesterol LAB L501.6500 0-130 mg/dL Normal LDL 33 LAB L501.6600 5-40 mg/dL Normal VLDL 17 Performed By: #### L500.3400, L500.4100 #### [facility] [address] [place], [address] Observed: 01/11/2018 Status: F Source: DASSEL CULTURE, BLOOD (WB) 5:14 PM [facility] BC No growth in 5 days. Performed By: #### M200.1000 #### [facility] [address] [place], [address] CHEST PA AND LATERAL Observed: 01/11/2018 Status: F Source: [place] 4:58 PM [facility] Imaging Services [address] [place] [address] Chest PA and Lateral MR#: [id number] Acct: [id number] Name: AMALIA RICHARDSON Rep #: [id number] : 1970 F 48 From: Rowdy Evans DO PCP: Kenzie Torrez DO Status: REG CLI Study: Chest PA and Lateral Date of Exam: 01/11/18 Exam# [id number] Ordering Dr: Bry Pelaez MD STUDY: X-RAY CHEST REASON FOR EXAM: Female, 48 years old. Fever. TECHNIQUE: PA and lateral views of the chest. COMPARISON: January 23, 2016 FINDINGS: The lungs are clear and expanded. There is no demonstrated pleural abnormality. Normal size heart. Normal mediastinum and parul. Normal visualized pulmonary arteries. Normal visualized aortic arch and descending thoracic aorta. Normal visualized thoracic spine. Normal visualized ribs, clavicles, and shoulders. There is no demonstrated abnormality of the visualized soft tissue structures of the upper abdomen. RAD/Chest PA and Lateral IMPRESSION: Normal x-ray examination of the chest. There is no interval change. Electronically Signed: Rowdy Evans DO at 18:56 EDT Tel [phone], Service support , CC: Bry Pelaez MD; Kenzie Torrez DO Production Supv: Signed ABDOMEN/PELVIS WITH Observed: 01/11/2018 Status: F Source: [place]AS[place] CONTRAST 4:58 PM [facility] Imaging Services [address] [place] [address] Abdomen/Pelvis WITH Contrast MR#: [id number] Acct: [id number] Name: AMALIA RICHARDSON Rep #: [id number] : 1970 F 48 From: Rowdy Evans DO PCP: Kenzie Torrez DO Status: REG CLI Study: Abdomen/Pelvis WITH Contrast Date of Exam: 01/11/18 Exam# [id number] Ordering Dr: Bry Pelaez MD STUDY: CT ABDOMEN AND PELVIS WITH CONTRAST REASON FOR EXAM: Female, 48 years old. Fever. Chills. Epigastric pain for 2 weeks. RADIATION DOSAGE (If Supplied By Facility): CTDIvol = ( 9.32 ) mGy, DLP = ( 397.09 ) mGycm TECHNIQUE: Transaxial images were obtained from the dome of the diaphragm to the symphysis pubis with oral contrast. 100ML ml of Isovue 300 contrast was administered. Sagittal and coronal images were reconstructed. Individualized dose optimization techniques were used for this CT. COMPARISON: Pelvic ultrasound, September 12, 2013. FINDINGS: The visualized lung bases are unremarkable. The visualized portions of the heart are within normal limits. Normal liver. There are surgical clips in the gallbladder fossa consistent with a prior cholecystectomy. Normal spleen. There is fatty replacement of the pancreas without visualized mass. Normal bilateral adrenal glands. Normal right kidney. Normal left kidney. Normal visualized stomach. Normal small intestine. Normal colon. The appendix is visualized and appears normal. There is minimal atherosclerotic changes of the abdominal aorta without aneurysm or dissection. Normal inferior vena cava. Normal retroperitoneum. Normal urinary bladder. The uterus is retroverted. There is an IUD in satisfactory position within the fundus. Normal adnexa. There is no pelvic lymphadenopathy. No free air or free fluid is seen within the peritoneal cavity. There is a small umbilical hernia of omental fat. The abdominal wall is otherwise unremarkable. There is minimal anterolisthesis of L4 and L5 without pars defects. There is minimal associated disc degeneration. CT/Abdomen/Pelvis WITH Contrast IMPRESSION: 1. No evidence for acute intra-abdominal or pelvic process. 2. Prominent uterus without focal mass. 3. IUD in satisfactory position. 4. Minimal degenerative changes on the lumbar spine. Electronically Signed: Rowdy Evans DO at 19:16 EDT Tel [phone], Service support , CC: Bry Pelaez MD; Kenzie Torrez DO Production Supv: Signed CARDIOLOGY VISIT Observed: 01/11/2018 Status: F Source: [facility] RE[place] 4:44 PM [facility] [address] [place] [address] OFFICE VISIT Date of Service: 01/11/18 MR#: [id number] Acct: [id number] Name: AMALIA RICHARDSON Rep #: [id number] : 1970 Provider: Bry Pelaez MD Age/Sex: 48/F Location: [facility] Status: Signed HPI HPI Chief Complaint: Follow up visit Details: AMALIA RICHARDSON, is a 48 F who presents to the office today for for a follow-up visit. As you know she had presented to the emergency room with chest discomfort and underwent an urgent cardiac catheterization with demonstrated high-grade 95% stenosis in the mid left anterior descending artery. She underwent angioplasty and stenting with a 2.25 x 38 Promus Synergy drug-eluting stent. Her ejection fraction was noted to be normal. Postoperatively she did well with no issues. She has been at home and returns for an urgent follow-up visit. She has been having fever and chills for the last few days and has not been feeling well she has periods of diaphoresis as well as flushing. She is also had some epigastric discomfort and underwent an EGD yesterday which did not demonstrate any significant pathology other than mild gastritis. She was put on Carafate. She did have blood work done as well as was swabbed for the flu virus which was negative. Her white count was noted to be normal and urinalysis was essentially unremarkable. She has had no neck arm or jaw discomfort suggest angina no dizziness or diaphoresis no near syncope or syncope she is been compliant with her medications. Her physical exam today demonstrates clear lung pierre regular rate and rhythm and no pedal edema her electric cardiogram demonstrates normal sinus rhythm with no acute changes T wave inversion noted in lead V2. She looks unwell. Intake Vital Signs01/11/18 Height 5 ft 1 in 01/11/18 Weight: 135 lb 01/11/18 Body Mass Index (BMI) 25.4 01/11/18 Blood Pressure 110/72 01/11/18 Blood Pressure Location Lt brachial Intake Visit Reasons: re-check per Dr Tiwari Allergies Sulfa (Sulfonamide Antibiotics) Allergy (Verified 01/11/18 12:36) Other tramadol HCl [From Ultra] Adverse Reaction (Verified 01/11/18 12:36) Other Medications Metoprolol(XL)Succ [Toprol Xl (Beta Malik)] 25 mg PO DAILY tab 12/20/17 [Rx Confirmed 01/11/18] Ticagrelor [Brilinta] 90 mg PO BID tab 12/20/17 [Rx Confirmed 01/11/18] atorvastatin 80 mg tablet 80 mg PO QHS tab 12/20/17 [Rx Confirmed 01/11/18] aspirin 81 mg tablet,delayed release 81 mg PO DAILY #90 tab 12/23/17 [Rx Confirmed 01/11/18] Acetaminophen [Tylenol] 650 mg PO X1 PRN 01/10/18 [History Confirmed 01/11/18] Azathioprine [Imuran] 150 mg PO DAILY@0800 01/10/18 [History Confirmed 01/11/18] lisinopril 5 mg tablet 2.5 mg PO DAILY #90 tab 01/11/18 [Rx Confirmed 01/11/18] omeprazole 20 mg capsule,delayed release 40 mg PO DAILY cap 01/11/18 [History Confirmed 01/11/18] sucralfate 1 gram tablet 1 g PO .qid tab 01/11/18 [History Confirmed 01/11/18] [facility] Medical History Hypertension (Chronic) 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 (Acute) History of colitis (Acute) Surgical History History of coronary artery stent placement (Acute 12/19/17) gallbladder surgery (Acute) Family History Father Heart disease Mother Heart disease Other grandparents history of heart disease Social History Smoking Status: Never smoker alcohol intake: current details: social substance use type: does not use caffeine: Yes seatbelt use: always do you feel safe at home: Yes 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 [facility] Const Const: Negative for fatigue, weakness, difficulty sleeping, frequent falls, excessive sweating or headache(s) Eyes Eyes: Negative for loss of peripheral vision, transient loss of vision, blurry vision, tunnel vision or double vision ENT ENT: Negative for headache(s), dizziness, Nosebleed/epistaxis or balance problems Cardio Chest Pain: No Palpitations: No Edema: None Muscle aches with walking: None Resp Respiratory: Negative for SOB with activity, SOB at rest, SOB orthopnea\SOB lying down, paroxysmal nocturnal dyspnea or Cough GI GI: Negative nausea, heartburn, black,tarry stools or vomiting : Negative for hematuria Musc Musc: Negative for balance problems, muscle aches/ myalgia, muscle weakness or joint pain Skin Skin: Negative non-healing lesions, unusual bruising or rash Neuro Neuro: Negative for weakness, frequent falls, headache(s), blurry vision, double vision, dizziness, lightheadedness, orthostatic symptoms, near syncope, syncope or lack of coordination Vlad Hematologic/Lymphatic: Negative for easy bruising or easy bleeding Endo Endo: Negative for fatigue, excessive sweating or increased thirst/drinking Psych Psych: Negative for anxiety or depression Allergy Allergy/Immunology: Negative for hives, Negative for rash Cardiology Exam Const Appearance: cooperative, healthy appearing, well developed, well groomed and no acute distress Nutritional Appearance: well nourished and average body habitus Orientation: alert, awake and oriented x3 Head Head: normal to inspection, normocephalic and atraumatic Ears: hearing grossly normal bilaterally and external ears normal Nose: external nose normal, nasal mucous membranes and turbinates normal, nares normal, septum normal, no nasal discharge Face and Sinus: face symmetric Mouth: oral mucosae normal, tongue normal, oropharynx normal and moist mucous membranes Teeth and gingiva: dentition normal Throat: posterior oropharynx normal, tonsils normal and uvula midline Eyes General: appearance normal, both eyes and all related structures Eyelids: eyelids normal Conjunctivae: conjunctivae normal Pupils: PERRL, normal by confrontation and accommodation normal EOM: EOM intact bilaterally Neck Neck: normal visual inspection, trachea midline and no JVD JVD: +5 Carotids: normal carotid upstroke and bounding pulses Chest Chest inspection: normal inspection of the chest, symmetric chest movement and normal respiratory effort Auscultation: Bilateral: Clear to Auscultation Cardio Palpation: normal PMI Rate: regular rate Rhythm: regular rhythm Heart sounds: S1 normal, S2 normal and normal, physiologic split S2; negative rub, gallop or murmur GI GI: normal to inspection, soft, no hepatosplenomegaly and bowel sounds present Neuro General: alert, awake, oriented x3, no focal sensory deficit, gait normal and moves all extremities Skin Skin: no rashes or lesions noted Extremities Pulses: Normal: Right Femoral Pulse, Left Femoral Pulse, Right Dorsalis Pedis Pulse, Left Dorsalis Pedis Pulse, Right Posterior Tibial Pulse, Left Posterior Tibial Pulse, Right Radial Pulse, Left Radial Pulse Lower Extremity Edema: None: Bilateral Musculoskel Musculoskeletal: No joint tenderness Psych Psychological: normal affect Assessment AND Plan 1. Fever and chills R50.9 Plan She does have fever and chills the etiology of which is not clear at this time. I do not think that this is primarily cardiac. However like us to obtain a chest x-ray to exclude any early pulmonary infection as well as an echocardiogram to exclude any evidence of valvular abnormality. Blood cultures should also be obtained at this time. Orders Orders: 2. Hypertension I10 Plan Her blood pressure appears to be under good control. Due to her current illness it appears to be low and I would recommend that we reduce the lisinopril to 2.5 mg daily. We will continue to monitor her with serial blood pressures. 3. History of coronary artery stent placement Z95.5 PCI-JAMIE-Mid LAD w/ 2.25 x 38 Promus Synergy 12/19/17 Plan She does have a history of coronary artery stent placement. She has not had any chest pain to suggest angina and will continue to follow the above. Plan Detail Other Medications Changed: On Hold: Follow Up prev Coding Level of Care Code Off vis,est,level 4 Diagnoses Fever and chills R50.9 Hypertension I10 History of coronary artery stent placement Z95.5 Coding Level of Care Code Off vis,est,level 4 Diagnoses Fever and chills R50.9 Hypertension I10 History of coronary artery stent placement Z95.5 01/11/18 1644 <Electronically signed by Bry Pelaez MD> Date Bry Pelaez MD Cosigner Signature: Date (if applicable) CC: Kenzie Torrez DO HISTORY AND PHYSICAL Observed: 01/11/2018 Status: F Source: [place] EXAM 5:56 AM [facility] Medical Records Department [address] [place] [address] History and Physical 01/10/18 1131 MR#: [id number] Acct: [id number] Name: AMALIA RICHARDSON Rep #: [id number] : 1970 48 From: Jacob Tiwari MD PCP: Kenzie Torrez DO Status: [facility] [place] [facility] Location: EN Problem List (1) Abdominal pain Status: Acute Qualifiers: Abdominal location: epigastric Qualified Code(s): R10.13 - Epigastric pain History of Present Illness Date of Admission: 01/10/18 The patient is a 48 year old F who on December 19, 2017 had epigastric pain thought it was possibly abdomen but then developed chest pain was noted to have critical coronary ischemia underwent urgent coronary catheterization and stenting. It is of note that the patient has a long-term history of ulcerative colitis for which she is on Imuran. Over the past couple weeks prior to her urgent heart procedure she was having nondescript abdominal pain cramping. She is not been having any bright red blood. Today she presented to work with fever or chilling onset of yesterday. It is unclear as to whether her epigastric pain is part of this phenomena or separate phenomena. Over the weekend the patient tried eating and would have severe fiery pain in the epigastrium. She has been placed on aspirin and Brilinta and she placed herself on omeprazole. Despite this she is not improved. Today she is feeling very ill nauseated with epigastric pain. Laboratory was obtained demonstrating a normal white blood cell count and normal hemoglobin. There is a slight left shift with 81 per 10 segs. A nasal flu swab was obtained that was negative. Urinalysis was not remarkable. Liver function tests slightly abnormal with slightly abnormal total bilirubin and AST nonspecific. Lipase was normal. Erythrocyte sedimentation rate was normal. The patient states however she is absolutely unable to eat or drink due to this fiery epigastric pain. At this point having performed a clinical examination and review of information I believe that is pertinent to perform an upper endoscopy for diagnosis Past Medical History Past Medical History (Chronic Problems): Chronic Problems (Last Reviewed 12/23/17 @ 14:36 by Bry Pelaez MD) Hypertension (Chronic) Medical History: Medical History (Last Reviewed 12/23/17 @ 14:36 by Bry Pelaez MD) Hypertension (Chronic) I10 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 (Acute) I25.119 PCI-JAMIE-Mid LAD w/ 2.25 x 38 Promus Synergy 9/10/18 History of colitis Z87.19 Allergies Sulfa (Sulfonamide Antibiotics) Allergy (Verified 12/23/17 14:17) Other tramadol HCl [From [facility]] Adverse Reaction (Verified 12/23/17 14:17) Other Home Medications: Ambulatory Orders Medication Instructions Recorded Omeprazole [Prilosec] 20 mg PO DAILY 12/19/17 Atorvastatin Calcium [Lipitor] 80 mg PO QHS tab 12/20/17 Surgical History: Surgical History (Last Reviewed 12/23/17 @ 14:36 by Bry Pelaez MD) History of coronary artery stent placement (Acute) Onset Date: 12/19/17 Z95.5 PCI-JAMIE-Mid LAD w/ 2.25 x 38 Promus Synergy 12/19/17 gallbladder surgery Surgical History: cholecystectomy Smoking Status: Never smoker Review of Systems Constitutional: Reports: Chills, Fever HEENT: Reports: Dysphasia Cardiovascular: Denies: Chest Pain Respiratory: Denies: Cough, Hemoptysis Gastrointestinal: Reports: Abdominal Pain. Denies: Hematemesis, Hematochezia Genitourinary: Denies: Dysuria Psychiatric: Denies: Anxiety Endocrine: Denies: Change in Body Habitus VTE Information - Inpt Only VTE Present on Admission: No Patient Problems: Active and Suspected Problems (Last Reviewed 12/23/17 @ 14:36 by Bry Pelaez MD) Abdominal pain (Acute) - Physical Exam General: Alert, Oriented x3, - - Patient appears uncomfortable HEENT: Atraumatic Oral: Moist Mucosa Neck: Supple Lungs: Clear to auscultation Cardiovascular: Regular rate, Regular Rhythm Abdomen: Bowel Sounds Present, Tender - Tender in the epigastrium Extremities: No clubbing Lymphatic: No Cervical, Supraclavicular, or Inguinal Adenopathy Psych/Mental Status: Normal Affect Vital Signs Temp Pulse Resp BP Pulse Ox 99.6 F H 86 16 114/80 98 01/10/18 10:10 01/10/18 10:10 01/10/18 10:10 01/10/18 10:10 01/10/18 10:10 Oxygen Delivery Method Room Air Weight: 130 lb Body Mass Index (BMI) 24.5 Microbiology Past 72 Hours 01/10/18 08:58 Influenza Types A,B Direct FA (CARMEN) - Final Mucosa - Nose Laboratory Tests Past 24 Hrs WBC 5.1 RBC 4.21 Hgb 14.3 Hct 40.8 MCV 96.9 MCH 34.0 H MCHC 35.0 RDW 12.7 RDW Differential 44.0 H Plt Count 271 Assessment/Plan All Active Problems (Last Reviewed 12/23/17 @ 14:36 by Bry Pelaez MD) Abdominal pain (Acute) History of coronary artery stent placement (Acute 12/19/17) 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 (Acute) Laboratory was not eventful other than minimal elevation of LFTs. I recommend a esophagogastroduodenoscopy with possible biopsy. Because of the patient's recent cardiac history we will perform this with monitored anesthesia care. The patient is aware of the technique, benefits, risks, alternatives. We will proceed urgently to try to facilitate diagnosis and care. Jacob Tiwari M.D., F.A.C.S. 01/11/18 0556 <Electronically signed by Jacob Tiwari MD> Date Jacob Tiwari MD Cosigner Signature: Date (if applicable) CC: Kenzie Torrez DO; Jacob Tiwari MD Signed OPERATIVE REPORT - Observed: 01/10/2018 Status: F Source: [facility] ENDOSCOPY 12:04 PM [facility] Medical Records Department [address] [place] [id number] Operative Report - Endoscopy MR#: [id number] Acct: [id number] Name: AMALIA RICHARDSON Rep #: [id number] : 1970 48 From: Jacob Tiwari MD PCP: Kenzie Torrez DO Status: [facility] Patient Name: Amalia Richardson Procedure Date: 01/10/2018 11:35 AM Date of : 1970 Age: 48 Procedure: Upper GI endoscopy Indications: Epigastric abdominal pain Providers: Jacob Tiwari MD Referring MD: Jacob Tiwari MD Medicines: See the Anesthesia note for documentation of the administered medications Complications: No immediate complications. Procedure: Pre-Anesthesia Assessment: - Prior to the procedure, a History and Physical was performed, and patient medications and allergies were reviewed. The patient's tolerance of previous anesthesia was also reviewed. The risks and benefits of the procedure and the sedation options and risks were discussed with the patient. All questions were answered, and informed consent was obtained. Prior Anticoagulants: The patient has taken aspirin, last dose was 1 day prior to procedure. [ASA Grade]. After reviewing the risks and benefits, the patient was deemed in satisfactory condition to undergo the procedure. - Prior to the procedure, a History and Physical was performed, and patient medications and allergies were reviewed. The patient's tolerance of previous anesthesia was also reviewed. The risks and benefits of the procedure and the sedation options and risks were discussed with the patient. All questions were answered, and informed consent was obtained. Prior Anticoagulants: The patient Brilinta. ASA Grade Assessment: II - A patient with mild systemic disease. After reviewing the risks and benefits, the patient was deemed in satisfactory condition to undergo the procedure. After obtaining informed consent, the endoscope was passed under direct vision. Throughout the procedure, the patient's blood pressure, pulse, and oxygen saturations were monitored continuously. The gastroscope was introduced through the mouth, and advanced to the second part of duodenum. The upper GI endoscopy was accomplished with ease. The patient tolerated the procedure well. Scope In: 11:46:41 AM Scope Out: 11:53:10 AM Total Procedure Duration Time 0 hours 6 minutes 29 seconds Findings: The examined esophagus was normal. Biopsies were taken with a cold forceps for histology. The Z-line was regular and was found 38 cm from the incisors. Diffuse mildly erythematous mucosa without bleeding was found in the stomach. Biopsies were taken with a cold forceps for histology. The examined duodenum was normal. Biopsies were taken with a cold forceps for histology. Impression: - Normal esophagus. Biopsied at EG junction - Z-line regular, 38 cm from the incisors. - Erythematous mucosa in the stomach. Biopsied. Bile noted within stomach. - Normal examined duodenum. Biopsied. Recommendation: - Await pathology results. - Resume previous diet. - Continue present medications. - Resume aspirin today at prior dose. - Telephone my office for pathology results in 1 week. - Use sucralfate tablets 1 gram PO QID today. Possible bile gastritis Procedure Code(s): --- Professional --- 62634, Esophagogastroduodenoscopy, flexible, transoral; with biopsy, single or multiple Diagnosis Code(s): --- Professional --- K31.89, Other diseases of stomach and duodenum R10.13, Epigastric pain CPT copyright 2017 [employer]. All rights reserved. The codes documented in this report are preliminary and upon marine engineer review may be revised to meet current compliance requirements. Jacob Tiwari MD 01/10/2018 12:03:25 PM This report has been signed electronically. Number of Addenda: 0 Note Initiated On: 01/10/2018 11:35 AM 01/10/18 1203 Date Jacob Tiwari MD Cosigner Signature: Date (if indicated) CC: Kenzie Torrez DO; Jacob Tiwari MD Date Dictated: 01/10/18 1135 Date Transcribed: Production Supv: SAI Signed EGD ([facility] SITE) Observed: 01/10/2018 Status: F Source: [place] 11:30 AM [facility] Patient: AMALIA RICHARDSON : 1970 (48/F) Acct Num: [id number] Phys: Te LAFLEUR,Jacob Unit Num: [id number] Loc: EN Specimen: [id number] Received: 01/10/18 - 8327 Spec Type: EGD BIOPSY TISSUES 1 TISSUES: A. Duodenum, NOS B. Gastric mucous membrane C. Gastric mucous membrane D. Esophagus, NOS COMMENT B AND C. The results of immunohistochemistry for Helicobacter pylori will be reported separately ([id number]). D. Alcian blue/PAS stain with matched control is used in the evaluation of the specimen. GROSS DESCRIPTION A - Received in fixative is one container labeled with the patient's name and designated duodenal biopsy. The specimen consists of two irregular fragments of light gann soft tissue that in aggregate measure 0.6 x 0.3 x 0.1 cm. The specimen is totally submitted in one cassette. B - Received in fixative is one container labeled with the patient's name and designated antrum biopsy for H. pylori. The specimen consists of one irregular fragment of light gann soft tissue that measures 0.5 x 0.3 x 0.1 cm. The specimen is totally submitted in one cassette. C - Received in fixative is one container labeled with the patient's name and designated body of stomach biopsy. The specimen consists of one irregular fragment of light gann soft tissue that measures 0.5 x 0.4 x 0.1 cm. The specimen is totally submitted in one cassette. D - Received in fixative is one container labeled with the patient's name and designated distal esophagus biopsy. The specimen consists of two irregular fragments of light gann soft tissue that in aggregate measure 0.5 x 0.5 x 0.1 cm. The specimen is totally submitted in one cassette. / DAQUAN:bethany 01/11/18 TC:3 CPT: 16077 x4, 01560 HEADER OPERATION: EGD PRE-OP DIAGNOSIS: Epigastric pain TISSUE SUBMITTED: A. Duodenal biopsy, B. Antrum biopsy for H. pylori and path, C. Body of stomach biopsy, D. Distal esophagus biopsy MICROSCOPIC DESCRIPTION Slides are reviewed. B AND C. The specimen shows fragments of gastric mucosa with chronic inflammatory cell infiltrates in the lamina propria consisting of lymphocytes and plasma cells, consistent with mild chronic gastritis. MICROSCOPIC DIAGNOSIS A. 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 B. Antrum, biopsy: Mild gastritis. See microscopic description and comment. C. Body of stomach, biopsy: Mild gastritis. See microscopic description and comment. D. Distal esophagus, biopsy: Fragments of gastroesophageal mucosa with chronic inflammation. Intestinal metaplasia (goblet cell metaplasia) is not identified. See comment. DAQUAN:bethany 01/12/18 Signed Hema Betts 01/12/18 <signature on file> Performed By: #### PEGD #### [facility] [address] [place] [address]. [place], [address] Observed: 01/10/2018 Status: F Source: [facility]SEL INFLUENZA A+B (RAPID 8:58 AM [facility] REPOSITORY Has pt arrived? Y FLU A/B Rapid Negative test results should be confirmed by culture. Order Rapid Viral Culture for Influenzae A+B (527998) if clinically indicated. Influenza Ag, Direct Presumptive NEGATIVE for Influenza A/B Antigen (See Note) Performed By: #### M101.0101 #### [facility] [address] [place], [place], [address] URINALYSIS, COMPLETE Collected: 01/10/2018 Status: F Source: [facility] 8:45 AM [facility] Order Comment: Has pt arrived? Y Comments: culture if indicated How was Urine Obtained? INTERNATIONAL ACCOUNT MANAGER TO SPECIFY TYPE CODE TESTS RESULT OUT OF RANGE REFERENCE UNITS LAB L400.3000 Yellow COLOR Normal Yellow LAB L400.3050 Clear Normal CLARITY Sl. Cloudy LAB L400.3200 Normal mg/dl Normal GLUCOSE, UR Normal LAB L400.3300 Negative mg/dL Normal BILIRUBIN URINE Negative LAB L400.3400 Negative mg/dl High 5 KETONE UR LAB L400.3465 1.002-1.030 Normal SP.GR. DIPSTX 1.015 LAB L400.3550 5.0 - 8.0 pH UR Normal 6.0 LAB L400.3600 Negative mg/dl High PROT 15 DIPSTX LAB L400.3700 Normal mg/dl High 1 UROBILI LAB L400.3750 Negative Normal NITRITE UR Negative LAB L400.3780 Negative /ul High 25 OCCULT BLOOD-UR LAB L400.3800 Negative /ul High LEUK 25 ESTERASE LAB L400.4050 0-5 /hpf WBC 0 Normal SEEN LAB L400.4100 0-5 /hpf Normal RBC-UA 0-5 SEEN LAB L400.4150 5-10 /hpf SQUAM Normal EPI 0-5 SEEN LAB L400.4300 None Seen /hpf Normal BACTERIA RARE LAB L400.4350 <or=2+ /hpf Normal MUCUS, URINE RARE Performed By: #### L400.0001 #### [facility] [address] [place], [address] ,URINE Collected: 01/10/2018 Status: F Source: [facility]SEL 8:45 AM [facility] TYPE CODE TESTS RESULT OUT OF REFERENCE UNITS RANGE LAB L400.8000 Negative Normal HCGUQUAL Negative Result Comment: Very dilute urine specimens, as indicated by a low specific gravity, may not contain aircraft sales representative levels of hCG. If is still suspected, a first morning urine specimen should be collected 48 hours later and tested. Performed By: #### L400.7600 #### [facility] [address] [place], [address] ERYTHROCYTE SED RATE Collected: 01/10/2018 Status: F Source: [place] 7[place] [facility] [place] CODE TESTS RESULT OUT OF RANGE REFERENCE UNITS LAB L102.0000 0-20 mm/hr Normal SED RATE 8 Performed By: #### L101.9900, L100.0100 #### [facility] [address] [place], [address] CBC W/DIFF, AUTOMATED Collected: 01/10/2018 Status: F Source: [place] 7:[place] [facility] [place] CODE TESTS RESULT OUT OF RANGE REFERENCE UNITS LAB L100.1000 4.4-11.0 K/mm3 Normal WBC 5.1 LAB L100.1200 4.2-5.4 M/mm3 Normal RBC 4.21 LAB L100.1300 12.0-15.0 g/dl Normal HGB 14.3 LAB L100.1400 37-47 % Normal HCT 40.8 LAB L100.1500 81-99 fL Normal MCV 96.9 LAB L100.1600 27.0-32.0 pg High MCH 34.0 LAB L100.1700 32-36 g/gl Normal MCHC 35.0 LAB L100.1810 11.6-14.6 % Normal RDW CV 12.7 LAB L100.1820 35.1-43.9 fl High RDW SD 44.0 LAB L100.1900 150-450 K/mm3 Normal PLT 271 LAB L100.2000 6.2-12.0 fl Normal MPV 9.3 LAB L100.2100 47-70 % High NEUT% 81.7 LAB L100.2200 19-41 % Low LY% 5.9 LAB L100.2300 0-10 % Normal MONO% 5.7 LAB L100.2400 0-5 % High EO% 6.3 LAB L100.2500 0-1 % Normal BASO% 0.4 LAB L100.2550 0.0-0.9 % Normal IM GRAN % 0.000 Result Comment: IG% - Immature Granulocytes (promyelocytes, myelocytes and metamyelocytes) > 1% indicates that a LEFT SHIFT is Present. LAB L100.2620 2.0-7.7 X10 3/uL Normal Absolute Neut 4.2 LAB L100.2720 0.83-4.51 X10 3/ul Low Absolute Lymph 0.30 Performed By: #### L101.9900, L100.0100 #### [facility] [address] [place], [address] COMPREHENSIVE METABOLIC Collected: 01/10/2018 Status: F Source: [facility] 7:14 AM [facility] [place] CODE TESTS RESULT OUT OF RANGE REFERENCE UNITS LAB L501.0100 74-106 mg/dL High GLU 113 Result Comment: Fasting Glucose result from 100 to 125 mg/dL suggests IMPAIRED HOMEOSTASIS per A.D.A. criteria. Please note revised GLUCOSE reference range effective 2017. LAB L501.1000 7-18 mg/dL Normal BUN 9 LAB L501.1100 0.55-1.02 mg/dL Normal CREAT,SERUM 0.82 Result Comment: The validity of the calculated GFR AND GFRAA in patients over 70 years has not been determined. Clinical correlation is essential. LAB L501.1110 >60 mL/min Normal EST GFR 79 Result Comment: Non- GFR Calc LAB L501.1115 >60 mL/min Normal EST GFR - AA 96 Result Comment: GFR Calc LAB L501.1300 10-20 RATIO Normal BUN/CRE 11.0 LAB L501.1500 6.4-8.2 g/dL T Normal PROT 8.0 LAB L501.1800 3.2-5.0 g/dL Normal ALB 4.2 LAB L501.1950 2.2-4.2 g/dL Normal GLOB 3.8 LAB L501.2000 0.9-2.4 RATIO Normal A/G 1.1 LAB L501.2200 8.5-10.1 mg/dL CA Normal 9.3 LAB L501.4100 15-37 U/L High AST 59 LAB L501.4305 45-117 U/L High ALK P 131 LAB L501.4405 13-56 U/L Normal ALT 53 LAB L501.4600 0.20-1.00 mg/dL High T BILI 1.10 LAB L501.5300 136-145 mmol/L NA Normal 139 LAB L501.5600 3.5-5.1 mmol/L K Normal 3.9 LAB L501.5900 98-107 mmol/L CL Normal 103 LAB L501.6100 21.0-32.0 mmol/L Normal CO2 27.0 LAB L501.6200 5-15 Normal GAP 9 Performed By: #### L500.4050, L501.2450 #### [facility] [address] [place], [address] LIPASE Collected: 01/10/2018 Status: F Source: [place] 7:[place] [facility] [place] CODE TESTS RESULT OUT OF RANGE REFERENCE UNITS LAB L501.2450 73-393 U/L Normal LIPASE 80 Performed By: #### L500.4050, L501.2450 #### [facility] [address] [facility] [place], [address] IMMUNOHISTOCHEMISTRY Observed: 01/10/2018 Status: F Source: [place] 12:00 [facility] [place] Patient: AMALIA RICHARDSON : 1970 (48/F) Acct Num: [id number] Phys: Te LAFLEUR,Jacob Unit Num: [id number] Loc: EN Specimen: [id number] Received: 01/12/18911 Spec Type: IMMUNO TISSUES 1 TISSUES: B. Stomach, NOS C. Stomach, NOS SPECIMEN INFORMATION: Tissue Source: B - Antrum biopsy, C - Body of stomach biopsy Clinical Info: Epigastric pain Specimen Number: [id number] B AND C CPT code: 30180 x2 METHODOLOGY: Deparaffinized sections of prefer/formalin-fixed tissue or PAP/DQ stained slides are incubated with monoclonal/polyclonal antibodies/oligonucleotide probes. Localization is made via biotin free immunoperoxidase method. Appropriate controls are performed and reacted as expected. Results on target cell population are indicated in the following table: RESULTS: ANTIBODY / CLONE RESULT Block B H Pylori (polyclonal) negative Block C H Pylori (polyclonal) negative These tests were developed and their performance characteristics determined by [facility]. They may not have been cleared or approved by the U.S. Food and Drug Administration. The FDA has determined that such clearance or approval is not necessary. INTERPRETATION: B. Antrum, biopsy: Negative for Helicobacter pylori organisms. C. Body of stomach, biopsy: Negative for Helicobacter pylori organisms. SJ:bethany 01/12/18 PHYSICIAN AND INSTITUTION [place] [address] Signed Hema Betts 01/12/18 <signature on file> Performed By: #### PIMM #### [facility] [address] [place] [address]. [place], [address] CR - HISTORY AND Observed: 01/09/2018 Status: F Source: [facility] PHYS[facility] 7:29 AM [facility] [place] [facility] [address] [place] [id number] CR - History AND Physical MR#: [id number] Acct: [id number] Name: AMALIA RICHARDSON Rep #: [id number] : 1970 47 From: Regan Carcamo JUDICIAL LAW CLERK, FREIGHT HUSTLER, BS PCP: Kenzie Torrez DO DOS: 01/06/18 CR - History AND Physical - History of Present Cardiac Event Onset Date: Enter Onset Date of cardiac illnesses in Comment field below Acute Myocardial Infarction within 12 months:: Yes - 12/19/2017 PTCA or coronary stenting:: Yes - 12/19/2017 Type of Symptoms:: classic symptoms occured at work she had been experiencing at home. came to ER and symptoms resolved with Nitro as well as EKG changes resolved. - Medications Home Medications: Ambulatory Orders Medication Instructions Recorded Omeprazole [Prilosec] 20 mg PO DAILY 12/19/17 Atorvastatin Calcium [Lipitor] 80 mg PO QHS tab 12/20/17 - Allergies Allergies/Adverse Reactions: Allergies Sulfa (Sulfonamide Antibiotics) Allergy (Verified 12/23/17 14:17) Other tramadol HCl [From [facility]] Adverse Reaction (Verified 12/23/17 14:17) Other - Sleep Disorder Evaluation Hx of Sleep Apnea: No Do you snore loudly (louder than talking or can be heard through closed doors)?: No Do you often feel tired/ fatigued/ sleepy during daytime?: No Has anyone observed you stop breathing during sleep?: No History of Hypertension (for STOP score): No STOP Results: Negative Advanced Directives - Advanced Directives Power of Banking Supervisor: No Living Will: No Advance Directives Information Provided: Yes Advance Directives on File: No DNR Order?:: No - MOLST See MOLST form: No Past Medical History - Past Medical Illness Medical History: Past Medical History (Last Reviewed 12/23/17 @ 14:36 by Bry Pelaez MD) Hypertension (Chronic) I10 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 (Acute) I25.119 PCI-JAMIE-Mid LAD w/ 2.25 x 38 Promus Synergy 12/19/17 History of colitis Z87.19 - Past Surgical History Surgical History: Past Surgical History (Last Reviewed 12/23/17 @ 14:36 by Bry Pelaez MD) History of coronary artery stent placement (Acute) Onset Date: 12/19/17 Z95.5 PCI-JAMIE-Mid LAD w/ 2.25 x 38 Promus Synergy 12/19/17 gallbladder surgery Surgical History: cholecystectomy - Family History Summary Family History: Family History (Last Updated 01/06/18 @ 14:35 by Regan Carcamo, JUDICIAL LAW CLERK, FREIGHT HUSTLER, BS) Father Heart disease Mother Heart disease Other grandparents history of heart disease Social History - Smoking History Smoking Status: Never smoker Hx Tobacco Use: No Hx Smoking Exposure: Yes - secondary smoking exposure as child. - Alcohol Use Alcohol Usage: Yes - occasionally; social choose mostly wine or mixed drinks. 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 Left click = Reports (Te-Moak) Review of Present Symptoms: Reports: Dizziness/Lightheadedness - occasionally get some dizziness or lightheadedness, probably less now than before the stent., Appetite - Normal, Appetite - Special Diet - yes; low sugar super low no added sugar, low carb adn healthier carbs, cut our red meats., Sleep - Normal. Denies: Shortness of Breath at Rest, Shortness of Breath with Exertion, Angina - less and less twinges that said was normal response to stent., Fatigue, Heart Arrhythmia/Irregularities, Sexual Changes - Pain Is Patient Pain Free?: Yes Pain Location: none, back - old injury in lower back sciatic pain but nothing hasn't been able to handle. Risk Factor Assessment - Chief Complaint Chief Complaint: Patient is a 47 yr old female who presents to cardiac rehab following recent NSTEMI and PCI intervention which occured at work. She states she has been able to resume her normal activities with no symptoms at this time. - Vital Signs Temperature: 98.7 F Respiratory Rate: 14 Pulse Ox: 97 - Pulse Pulse Rate: 83 Pulse Rhythm: Regular - Hypertension How long have you been treated?: 12/19/17 Blood Pressure Sitting - Left Arm: 96/48 - Stress Stress: Work-related - last 6 months has been so much better. - Diabetes Nutrition Referral for Diabetes: No - Obesity Height: 5 ft 1 in Weight:: 138 lb Weight in Pounds: 138.0 lbs Weight Source: Standing Scale Body Mass Index (BMI): 26.0 Nutritional Referral for Obesity: No - Physical Inactivity Physical Inactivity: Reg Exercise 30 min/day, Physically demanding job - Risk Stratification Risk Guidelines: Lowest Risk: Risk Factor for Smoking, Risk Factor for Dyslipidemia, Risk Factor for Diabetes, Risk Factor for Obesity, Risk Factor for Hypertension, Risk Factor for Sedentary Lifestyle, Risk Factor for Depression - For Smoking Smoking Risk Guidelines: Smoking Low Risk: None or quit greater than 6 months ago. Smoking Moderate Risk: Smoker or quit 6 months or less ago. Smoking High Risk: Smoker - For Dyslipidemia Dyslipidemia Risk Guidelines: Low Risk: Moderate Risk: High Risk: 15-25% fat 25.1-29% fat >/= 30% fat. <7% sat fat 7-9% sat fat >9% sat fat. <150 mg chol 150-299 mg chol >/= 300 mg chol. LDL <100 LDL 100-129 LDL >/= 130. Chol/HDL ratio <5.0 Chol/HDL ratio 5.0-6.0 Chol/HDL ratio >6.0. Triglycerides <100 Triglycerides 100-149 Triglycerides >/= 150 - For Diabetes Mellitus Diabetes Risk Guidelines: Diabetes Low Risk: HgA1c <6.5% and/or FBG <120. Diabetes Moderate Risk: HgA1c 6.6-7.9% and/or FBG 120- 180. Diabetes High Risk: HgA1c >/= 8% and/or FBG >180 - For Obesity/Overweight Obesity/Overweight Risk Guidelines: Obesity Low Risk: BMI <25.0. Obesity Moderate Risk: BMI 25-29.9. Obesity High Risk: BMI >/= 30.0 - For Hypertension Hypertension Risk Guidelines: Hypertension Low Risk: Systolic <120 and Diastolic <80. Hypertension Moderate Risk: Systolic 120-139 and Diastolic 80-89. Hypertension High Risk: Systolic >/= 140 and Diastolic >/= 90 - For Sedentary Lifestyle Sedentary Lifestyle Risk Guidelines: Sedentary Lifestyle Low Risk: >/= 1,500 kcal/week. Sedentary Lifestyle Moderate Risk: 700-1,499 kcal/week. Sedentary Lifestyle High Risk: < 700 kcal/week - For Depression Depression Risk Guidelines: Depression Low Risk: Not clinically depressed. Depression Moderate Risk: Mildly depressed. Depression High Risk: Clinically depressed - Family History Family History: Family History (Last Updated 01/06/18 @ 14:35 by Regan Carcamo, JUDICIAL LAW CLERK, FREIGHT HUSTLER, BS) Father Heart disease Mother Heart disease Other grandparents history of heart disease Motivation - Motivation to Participate On a scale of 1 to 10, how prepared are you to commit to attending program?: 10 What do you see as barriers to successfully being able to complete the program?: work schedule and meetings What do you see as the benefits of succesfully completing the program? In other words, what do you hope to get out of participating in the program?: being able to get back to normal routine, cross-fit exercise. Are there issues you are dealing with that will interfere with completing the program?: none Do you have a spouse or signficant other, family or friends who will help support you to complete the program?: marilou gibbs. 01/06/18 1448 <Electronically signed by Regan Carcamo CRT, RCP, BS> Date Regan Carcamo CRT, RCP, BS Outcome assessment reviewed. Exercise plan approved as documented. Treatment plan and goals support patient needs/abilities. Continue with current plan. I certify the patient demonstrates improvement and remains willing and capable of participation. the patient continues to benefit from cardiac rehab services/training. The patient may continue at current intensity, endurance and modality and progress per protocol. 01/09/18 0729 <Electronically signed by Bry Pelaez MD> Cosigner Signature: Date Bry Pelaez MD CC: Signed CARDIOLOGY VISIT Observed: 12/23/2017 Status: F Source: [place] 2:45 [place] [facility] [place] [facility] [address] [place] [address] OFFICE VISIT Date of Service: 12/23/17 MR#: [id number] Acct: [id number] Name: AMALIA RICHARDSON Rep #: [id number] : 1970 Provider: Bry Pelaez MD Age/Sex: 47/F [place] [facility] [place] Signed [facility] HPI Chief Complaint: Follow up Details: AMALIA RICHARDSON, is a 47 F who presents to the office today for a follow-up visit. As you know she had presented to the emergency room with chest discomfort and underwent an urgent cardiac catheterization with demonstrated high-grade 95% stenosis in the mid left anterior descending artery. She underwent angioplasty and stenting with a 2.25 x 38 Promus Synergy drug-eluting stent. Her ejection fraction was noted to be normal. Postoperatively she did well with no issues. She has been at home and returns for follow-up visit. She has had no neck arm or jaw discomfort suggest angina no dizziness or diaphoresis no near syncope or syncope she is been compliant with her medications. Her physical exam today demonstrates clear lung pierre regular rate and rhythm and no pedal edema her electric cardiogram demonstrates normal sinus rhythm with no acute changes T wave inversion noted in lead V2. Her blood pressure appears to be mildly elevated with respect to her diastolic values. Intake Vital Signs12/23/17 Height 5 ft 1 in 12/23/17 Weight: 138 lb 12/23/17 Body Mass Index (BMI) 26.0 12/23/17 Blood Pressure 124/86 12/23/17 Blood Pressure Location Lt brachial Intake Visit Reasons: per LEGAL COORDINATOR (SD ICU 9-) Care Director Required: No Is patient in pain?: No Allergies Sulfa (Sulfonamide Antibiotics) Allergy (Verified 12/23/17 14:17) Other tramadol HCl [From [facility]] Adverse Reaction (Verified 12/23/17 14:17) Other Medications Omeprazole [Prilosec] 20 mg PO DAILY 12/19/17 [History Confirmed 12/23/17] Atorvastatin Calcium [Lipitor] 80 mg PO QHS tab 12/20/17 [Rx Confirmed 12/23/17] Metoprolol(XL)Succ [Toprol Xl (Beta Malik)] 25 mg PO DAILY tab 12/20/17 [Rx Confirmed 12/23/17] Ticagrelor [Brilinta] 90 mg PO BID tab 12/20/17 [Rx Confirmed 12/23/17] aspirin 81 mg tablet,delayed release 81 mg PO DAILY #90 tab 12/23/17 [Rx Confirmed 12/23/17] aspirin 81 mg tablet,delayed release 325 mg PO DAILY@0800 tab 12/23/17 [History] azathioprine 50 mg tablet 150 mg PO DAILY@0800 12/23/17 [History Confirmed 12/23/17] lisinopril 5 mg tablet 5 mg PO DAILY #90 tab 12/23/17 [Rx Confirmed 12/23/17] [facility] Medical History Hypertension (Chronic) 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 (Acute) History of colitis (Acute) Surgical History History of coronary artery stent placement (Acute 12/19/17) gallbladder surgery (Acute) Family History Father Heart disease Mother Heart disease Social History Smoking Status: Never smoker alcohol intake: current details: social substance use type: does not use caffeine: Yes seatbelt use: always do you feel safe at home: Yes 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 [facility] Const Const: Negative for fatigue, weakness, night sweats, excessive sweating, frequent falls, headache(s) or daytime sleepiness Eyes Eyes: Negative for loss of peripheral vision, transient loss of vision, blind spots, double vision or blurry vision ENT ENT: Negative for headache(s), dizziness, balance problems, Nosebleed/epistaxis, tongue swelling or lip swelling Cardio Chest Pain: No Palpitations: No Edema: None Muscle aches with walking: None Resp Respiratory: Negative for SOB at rest, SOB orthopnea\SOB lying down, Cough, paroxysmal nocturnal dyspnea or SOB with activity GI GI: Negative nausea, vomiting, heartburn, black,tarry stools or bright, red blood in stools : Negative for hematuria Musc Musc: Negative for balance problems, muscle aches/ myalgia, muscle weakness or joint pain Skin Skin: Negative non-healing lesions, unusual bruising or rash Neuro Neuro: Negative for weakness, frequent falls, headache(s), double vision, dizziness, lightheadedness, orthostatic symptoms, blurry vision or lack of coordination Vlad Hematologic/Lymphatic: Negative for easy bruising or easy bleeding Endo Endo: Negative for fatigue, excessive sweating, cold intolerance, heat intolerance, increased thirst/drinking or hair loss Psych Psych: Negative for anxiety or depression Allergy Allergy/Immunology: Negative for throat swelling, Negative for tongue swelling, Negative for hives, Negative for rash, Negative for lip swelling Cardiology Exam Const Appearance: cooperative, healthy appearing, well developed, well groomed and no acute distress Nutritional Appearance: well nourished and average body habitus Orientation: alert, awake and oriented x3 Head Head: normal to inspection, normocephalic and atraumatic Ears: hearing grossly normal bilaterally and external ears normal Nose: external nose normal, nasal mucous membranes and turbinates normal, nares normal, septum normal, no nasal discharge Face and Sinus: face symmetric Mouth: oral mucosae normal, tongue normal, oropharynx normal and moist mucous membranes Teeth and gingiva: dentition normal Throat: posterior oropharynx normal, tonsils normal and uvula midline Eyes General: appearance normal, both eyes and all related structures Eyelids: eyelids normal Conjunctivae: conjunctivae normal Pupils: PERRL, normal by confrontation and accommodation normal EOM: EOM intact bilaterally Neck Neck: normal visual inspection, trachea midline and no JVD JVD: +5 Carotids: normal carotid upstroke and bounding pulses Chest Chest inspection: normal inspection of the chest, symmetric chest movement and normal respiratory effort Auscultation: Bilateral: Clear to Auscultation Cardio Palpation: normal PMI Rate: regular rate Rhythm: regular rhythm Heart sounds: S1 normal, S2 normal and normal, physiologic split S2; negative rub, gallop or murmur GI GI: normal to inspection, soft, no hepatosplenomegaly and bowel sounds present Neuro General: alert, awake, oriented x3, no focal sensory deficit, gait normal and moves all extremities Skin Skin: no rashes or lesions noted Extremities Pulses: Normal: Right Femoral Pulse, Left Femoral Pulse, Right Dorsalis Pedis Pulse, Left Dorsalis Pedis Pulse, Right Posterior Tibial Pulse, Left Posterior Tibial Pulse, Right Radial Pulse, Left Radial Pulse Lower Extremity Edema: None: Bilateral Musculoskel Musculoskeletal: No joint tenderness Psych Psychological: normal affect Assessment AND Plan 1. 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 Recommendation will be for her to continue high intensity statin, low-dose aspirin at 81 mg a day, anticoagulant 90 mg twice a day. She should continue the omeprazole for now as well. She can return to work without any restrictions within the next week. Cardiac rehabilitation has also been emphasized. Orders Orders: 2. Hypertension I10 Plan Her blood pressure appears to be mildly elevated today I would recommend that she continue on the metoprolol 25 mg a day and I will suggest the addition of lisinopril 5 mg a day. She should have her blood pressures checked intermittently. Thank you for allowing me to participate in her care. 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 I25.119 Hypertension I10 12/23/17 1445 <Electronically signed by Bry Pelaez MD> Date Bry Pelaez MD Cosigner Signature: Date (if applicable) CC: Kenzie Torrez DO 12 LEAD EKG PERFORMED Observed: 12/23/2017 Status: F Source: [facility] BY [facility] [place] 2:12 PM [facility] [place] [id number] [place] [address] 12 Lead EKG performed by [facility] 12/23/17 1411 MR#: [id number] Acct: [id number] Name: AMALIA RICHARDSON Rep #: [id number] : 1970 47 From: Bry Pelaez MD Attending Dr: Bry Pelaez MD Status: DEP AMB Ordering Dr: Bry Pelaez MD Date: 12/23/17 [place] [facility] [place] C Admitted: BMS/12 Lead EKG performed by [facility] ECG Report Interpretation Sinus Rhythm Low voltage in precordial leads. -RSR(V1) -nondiagnostic. - Nonspecific T-abnormality. ABNORMAL Electronically signed on 05/02/2018 at 16:24 by Bry Pelaez [employer] Version [id number] 05/02/18 1630 Date Bry Pelaez MD CC: Kenzie Torrez DO Date Dictated: 12/23/171410 Date Transcribed: 12/23/171410 Production Supv: CO Signed 12 LEAD ELECTROCARDIOGRAM Observed: 12/21/2017 Status: F Source: [place] 2:11 PM [facility] RE[facility]IT[facility] Cardiovascular Services [address] [place] [address] 12 Lead EKG 12/19/17 1642 MR#: [id number] Acct: [id number] Name: AMALIA RICHARDSON Rep #: [id number] : 1970 47 From: Bry Pelaez MD Attending Dr: Jacey LAFLEUR,Bry Status: DIS JOSEPH Ordering Dr: Pop Null MD Date: 12/20/17 Location: ICU Sex: F C Admitted: 12/19/17 Test Reason : CP Blood Pressure : / mmHG Vent. Rate : 061 BPM Atrial Rate : 061 BPM P-R Int : 158 ms QRS Dur : 088 ms QT Int : 404 ms P-R-T Axes : 039 -09 036 degrees QTc Int : 406 ms Normal sinus rhythm Normal ECG When compared with ECG of 19-DEC-2017 13:47, MANUAL COMPARISON REQUIRED, DATA IS UNCONFIRMED Confirmed by JACEY LAFLEUR, BRY ([id number]), electronic news gathering editor KIERSTEN ESCOBAR ([id number]) on 12/21/2017 2:11:05 PM Referred By: JACEY Confirmed By:BRY PELAEZ MD 12/21/171410 Date Bry Pelaez MD CC: Bry Pelaez MD; Pop Null MD; Kenzie Torrez DO Signed 12 LEAD ELECTROCARDIOGRAM Observed: 12/21/2017 Status: F Source: [place] 2:07 PM [facility] RE[facility] Cardiovascular Services [address] [place] [address] 12 Lead EKG 12/20/17 0528 MR#: [id number] Acct: [id number] Name: AMALIA RICHARDSON Rep #: [id number] : 1970 47 From: Bry Pelaez MD Attending Dr: Bry Pelaez MD Status: DIS JOSEPH Ordering Dr: Pop Null MD Date: 12/19/17 Location: ICU Sex: F C Admitted: 12/19/17 Test Reason : Blood Pressure : / mmHG Vent. Rate : 071 BPM Atrial Rate : 071 BPM P-R Int : 170 ms QRS Dur : 090 ms QT Int : 400 ms P-R-T Axes : 053 001 060 degrees QTc Int : 434 ms Normal sinus rhythm Normal ECG When compared with ECG of 19-DEC-2017 16:42, MANUAL COMPARISON REQUIRED, DATA IS UNCONFIRMED Confirmed by BRY PELAEZ MD ([id number]), electronic news gathering editor KIERSTEN ESCOBAR ([id number]) on 12/21/2017 2:06:43 PM Referred By: KEY Confirmed By:BRY PELAEZ MD 12/21/17 1406 Date Bry Pelaez MD CC: Bry Pelaez MD; Pop Null MD; Kenzie Torrez DO Signed 12 LEAD ELECTROCARDIOGRAM Observed: 12/21/2017 Status: F Source: [place] 1:39 PM [facility] Cardi[facility] Services [address] [place] [address] 12 Lead EKG 12/19/17 1347 MR#: [id number] Acct: [id number] Name: AMALIA RICHARDSON Rep #: [id number] : 1970 47 From: Bry Pelaez MD Attending Dr: Bry Pelaez MD Status: DIS JOSEPH Ordering Dr: Ramesh Sunshine MD Date: 12/19/17 Location: ICU Sex: F C Admitted: 12/19/17 Test Reason : REPEAT POST NITRO Blood Pressure : / mmHG Vent. Rate : 092 BPM Atrial Rate : 092 BPM P-R Int : 156 ms QRS Dur : 088 ms QT Int : 362 ms P-R-T Axes : 041 -17 029 degrees QTc Int : 447 ms Normal sinus rhythm Minimal voltage criteria for LVH, may be normal variant Borderline ECG Confirmed by BRY PELAEZ MD ([id number]), electronic news gathering editor KIERSTEN ESCOBAR ([id number]) on 12/21/2017 1:39:03 PM Referred By: LUBNA Confirmed By:BRY PELAEZ MD 12/21/17 1757 Date Bry Pelaez MD CC: Bry Pelaez MD; Ramesh Sunshine MD; Kenzie Torrez DO Signed 12 LEAD ELECTROCARDIOGRAM Observed: 12/21/2017 Status: F Source: DASSEL 1:38 PM [facility] [address] [place] [address] 12 Lead EKG 12/19/17 1249 MR#: [id number] Acct: [id number] Name: AMALIA RICHARDSON Rep #: [id number] : 1970 47 From: Bry Pelaez MD Attending Dr: Bry Pelaez MD Status: DIS JOSEPH Ordering Dr: Ramesh Sunshine MD Date: 12/19/17 Location: ICU Sex: F C Admitted: 12/19/17 Test Reason : CP Blood Pressure : / mmHG Vent. Rate : 066 BPM Atrial Rate : 066 BPM P-R Int : 154 ms QRS Dur : 092 ms QT Int : 384 ms P-R-T Axes : 043 -02 -08 degrees QTc Int : 402 ms Normal sinus rhythm with sinus arrhythmia Incomplete right bundle branch block T wave abnormality, consider inferior ischemia Abnormal ECG Confirmed by BRY PELAEZ MD ([id number]), electronic news gathering editor KIERSTEN ESCOBAR ([id number]) on 12/21/2017 1:38:47 PM Referred By: LUBNA Confirmed By:BRY PELAEZ MD 12/21/17 3376 Date Bry Pelaez MD CC: Bry Pelaez MD; Ramesh Sunshine MD; Kenzie Torrez DO Signed DISCHARGE INSTRUCTION Observed: 12/20/2017 Status: F Source: ROCKY 7:49 AM [facility] Medical Records Department [address] [place] [address] Instructions for Home/Discharge Instructions 12/20/17 0747 MR#: [id number] Acct: [id number] Name: AMALIA RICHARDSON Rep #: [id number] : 1970 47 From: Bry Pelaez MD PCP: Kenzie Torrez DO Status: ADM JOSEPH Discharge Diet: No Restrictions - You may continue your normal diet., Low fat/ Low Cholesterol Lifting Restrictions: 10 pounds and also avoid any pushing or pulling for 3 days after your test. Additional Activity Instructions:: You must have someone drive you home. Do not drive until instructed by your doctor. You must have someone stay with you all night after your test. Rest in bed or on the couch until the next morning. Limit the number of times you go up and down stairs the day of your test. Apply pressure to the puncture site if you sneeze or cough. Call your doctor if your incision/area has: Increased Pain/ Swelling, Increased Redness, Foul Smelling Discharge, Swelling at the incision site Call your doctor if you observe: Fever of 101 or Higher Change Dressing in (Days):: 1 Remove Dressing in (days):: 2 Cleanse incision/area with: Keep Dressing Clean AND Dry Additional Dressing/Incision Instructions:: Keep the dressing (bandage) on until the next morning. You may then shower, but do not take a tub bath for 5 days after your test. It is normal to have some tenderness and discomfort at the puncture site. Sometimes bruising also occurs. However, if pain, numbness, or coldness occurs below the puncture site (in your leg, toes, arms or fingers) call your doctor at once. You may have a small, marble sized knot at the puncture site. This is normal. Do not rub it. It will go away in 4-6 weeks. Bleeding can occur from the area where the puncture was done. Blood may spurt or drip from the site. If blood spurts, apply pressure right away to stop bleeding and call 911. Although rare, bleeding into the tissue (hematoma) can also occur. If this happens, a large, firm area goose egg under the skin will appear. If any of these occur, lie down as flat as you can and have someone apply firm pressure to the cath site with a gauze pad or a clean washcloth for 10-15 minutes. Call 911 or go to the Emergency Department. Allergies/Adverse Reactions: Allergies Sulfa (Sulfonamide Antibiotics) Allergy (Verified 04/20/17 15:06) Other tramadol HCl [From Ultram] Adverse Reaction (Verified 04/20/17 15:06) Other Medications to take at Discharge Azathioprine [Imuran] 150 mg PO DAILY@0800 12/19/17 Omeprazole [Prilosec] 20 mg PO DAILY 12/19/17 Aspirin E.C. [Ecotrin] 81 mg PO DAILY@0800 tablet 12/20/17 Atorvastatin Calcium [Lipitor] 80 mg PO QHS tablet 12/20/17 Metoprolol(XL)Succ [Toprol Xl (Beta Malik)] 25 mg PO DAILY tablet 12/20/17 Ticagrelor [Brilinta] 90 mg PO BID tablet 12/20/17 Primary Care Physician: Kenzie Torrez DO [Primary Care Provider] - Test Results: Test results from this visit will be discussed in further detail at your follow-up appointment, if applicable. When: follow up in jacey nicholson Proposed Discharge Date: 12/20/17 Cardiac Rehabilitation Info Cardiac Rehabilitation Program Information: Cardiac Rehabilitation is important for patients like you who are recovering from a heart problem. Cardiac rehabilitation programs are recognized as integral to the continued care of the patient with coronary heart disease. The cardiac rehabilitation program is designed to optimize a patient's physical, psychological, and social functioning. Health childcare provider work in cardiac rehabilitation programs and assist you with getting the treatments you need to get stronger and healthier - like exercise, healthy eating habits, and medications. Cardiac rehabilitation has been show to help people with heart problems live longer and have better life enjoyment than people who do not go to cardiac rehabilitation. Please contact the Cardiac Rehabilitation Program at [facility] at in two weeks if you have not heard from them. 12/20/17 0749 <Electronically signed by Bry Pelaez MD> Date Bry Pelaez MD CC: Kenzie Torrez DO CBC-COMPLETE BLOOD CNT Collected: 12/20/2017 Status: F Source: ROCKY NO DIFF 5:20 AM [facility] TYPE CODE TESTS RESULT OUT OF RANGE REFERENCE UNITS LAB L100.1000 4.4-11.0 K/mm3 Normal WBC 5.6 LAB L100.1200 4.2-5.4 M/mm3 Low RBC 3.96 LAB L100.1300 12.0-15.0 g/dl Normal HGB 13.1 LAB L100.1400 37-47 % Normal HCT 38.3 LAB L100.1500 81-99 fL Normal MCV 96.7 LAB L100.1600 27.0-32.0 pg High MCH 33.1 LAB L100.1700 32-36 g/gl Normal MCHC 34.2 LAB L100.1810 11.6-14.6 % Normal RDW CV 12.5 LAB L100.1820 35.1-43.9 fl Normal RDW SD 42.9 LAB L100.1900 150-450 K/mm3 Normal PLT 257 LAB L100.2000 6.2-12.0 fl Normal MPV 8.8 Performed By: #### L100.0500 #### [facility] [place] [place], [address] BASIC METABOLIC Collected: 12/20/2017 Status: F Source: DASSEL PROFILE (BMP) 5:20 AM [facility] TYPE CODE TESTS RESULT OUT OF RANGE REFERENCE UNITS LAB L501.0100 74-106 mg/dL Normal GLU 100 Result Comment: Fasting Glucose result from 100 to 125 mg/dL suggests IMPAIRED HOMEOSTASIS per A.D.A. criteria. Please note revised GLUCOSE reference range effective 2017. LAB L501.1000 7-18 mg/dL Normal BUN 8 LAB L501.1100 0.55-1.02 mg/dL Normal CREAT,SERUM 0.65 Result Comment: The validity of the calculated GFR AND GFRAA in patients over 70 years has not been determined. Clinical correlation is essential. LAB L501.1110 >60 mL/min Normal EST GFR 104 Result Comment: Non- GFR Calc LAB L501.1115 >60 mL/min Normal EST GFR - AA 126 Result Comment: GFR Calc LAB L501.1255 ml/min Normal Estimated CRCL 80.74 LAB L501.1300 10-20 RATIO Normal BUN/CRE 12.4 LAB L501.2200 8.5-10 mg/dL Low .1 CA 8.2 LAB L501.5300 136-14 mmol/L Normal 5 NA 141 LAB L501.5600 3.5-5. mmol/L Normal 1 K 4.2 LAB L501.5900 98-107 mmol/L High CL 110 LAB L501.6100 21.0-3 mmol/L Normal 2.0 CO2 22.0 LAB L501.6200 5-15 Normal GAP 9 Performed By: #### L500.2500, L500.4100 #### [facility] [address] [place], [place], [id number] LIPID PROFILE Collected: 12/20/2017 Status: F Source: DASSEL 5:20 AM [facility] TYPE CODE TESTS RESULT OUT OF RANGE REFERENCE UNITS LAB L501.4900 200 mg/dL Normal CHOL 162 Result Comment: <200 mg/dL Desirable 200-240 mg/dL Borderline >240 mg/dL High Risk LAB L501.5000 mg/dL Normal TRIG 115 Result Comment: The drugs N-Acetylcysteine and Metamizole may falsely depress this assay. Serum Triglycerides Reference Interval Normal <150 mg/dL Borderline high 150 - 199 mg/dL High 200 - 499 mg/dL Very High > or = 500 mg/dL LAB L501.6400 mg/dL Normal HDL 43 Result Comment: The drugs N-Acetylcysteine and Metamizole may falsely depress this assay. Reference Range HDL <40 mg/dL Low HDL Cholesterol HDL >or= 60 mg/dL High HDL Cholesterol LAB L501.6500 0-130 mg/dL Normal LDL 96 LAB L501.6600 5-40 mg/dL Normal VLDL 23 Performed By: #### L500.2500, L500.4100 #### [facility] [address] [place], [place], [id number] CPK TOTAL, CREATINE Collected: 12/19/2017 Status: F Source: ROCKY KINASE 9:25 PM [facility] Order Comment: Comments: Notify MD if value > than 2.5 times normal value TYPE CODE TESTS RESULT OUT OF RANGE REFERENCE UNITS LAB L501.3620 26-192 U/L Normal CPK TOTAL 70 Performed By: #### L501.3620 #### [facility] [address] [place], [address] EMERGENCY DEPARTMENT Observed: 12/19/2017 Status: F Source: ROCKY SUMMARY 5:32 PM [facility] Medical Records Department [address] [place] [address] Emergency Department Summary 12/19/17 1314 MR#: [id number] Acct: [id number] Name: AMALIA RICHARDSON Rep #: [id number] : 1970 47 From: Ramesh Sunshine MD PCP: Kenzie Torrez DO Status: ADM JOSEPH - ER Visit Summary Date of Service: 12/19/17 Chief Complaint: Epigastric and chest pain History of Present Illness: The patient is a 47 F history of ulcerative colitis. Prior cholecystectomy. Patient states the last 2 weeks she has had intermittent chest pain. Associated when she works out doing cross fit. Starts in epigastric lower chest region radiates up her chest at times in her jaw back and both upper extremities. At times associated with nausea and breath. No prior history of DVT nor PE. No leg pain or swelling. No recent travel, surgery, legs swelling nor hemoptysis. Significant family history of cardiac disease in both her parents and relatives. She has never had a stress test or heart catheterization. Physical Examination: Middle-aged female vital signs are stable blood pressure elevated 175/104. Pulse ox 90% on 2 L no hypoxia. H EENT exam unremarkable neck nontender. Lungs clear to auscultation bilaterally. Heart regular rhythm no murmur. Chest wall nontender. Abdomen soft nontender. Normal bowel sounds no peritoneal signs. Both the epigastric and right upper quadrant completely nontender. She is moving all 4 extremities. They are neurovascularly intact. Calves are nontender without edema or cords. Equal symmetrical radial pulses. 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 Back nontender. Neurologic exam normal. No focal motor deficits. Test Results: Patient will undergo cardiac workup. Initial EKG is a sinus rhythm rate is [address]-T wave changes in the anterior inferior leads with mild depression and T-wave inversion. This is change from prior EKG from 2016. Normal. BMP unremarkable other than slightly low potassium at 3.1. Chest x-ray showed normal cardiac silhouette and mediastinum. Troponin was normal. Repeat EKG was performed after sublingual nitroglycerin it resolved her pain. The inverted T-wave in leads III had normalized. Emergency Department Course and Treatment: Patient's history is concerning for this being underlying cardiac disease with her family history and the way she describes it with exertion. She will be given aspirin and sublingual nitroglycerin. He does have concerning EKG findings in the inferior leads. She will be admitted. I spoke both to Dr. Bry Pelaez and Dr. Jamil Null of cardiology. Both were in the ER evaluating the patient. She will be anticoagulated on Plavix and taken to the [facility]. Treatment Plan: For cardiac catheterization. Disposition: Admission Impression: Acute chest pain with abnormal inferior EKG changes. This note was generated with Sonocine dictation software. It may contain incorrect words, spelling, and punctuation that were not noted in review of the chart prior to signing ED Disposition - Plan for ED Patient: Chief Complaint: Chest Pain What to do if you have Problems For any increased pain, shortness of breath, bleeding, nausea or vomiting, chest pain, or any unexpected problems, contact your Primary Care Provider. Call [facility] ([phone]) or report to the closest Emergency Room. Call 911 if necessary. 12/19/17 4434 <Electronically signed by Ramesh Sunshine MD> Date Ramesh Sunshine MD Cosigner Signature (If Indicated): Date CC: Kenzie Torrez DO ACT ACTIVATED CLOTTING Collected: 12/19/2017 Status: F Source: ROCKY TIME 5:32 PM [facility] TYPE CODE TESTS RESULT OUT OF RANGE REFERENCE UNITS LAB L9100.0100 74-137 sec High ACTk CLOT 169 TIME Performed By: #### L9100.0100 #### [facility] Point of Care [address] [place] [address] ACT ACTIVATED CLOTTING Collected: 12/19/2017 Status: F Source: ROCKY TIME 4:01 PM [facility] RE[facility] TYPE CODE TESTS RESULT OUT OF RANGE REFERENCE UNITS LAB L9100.0100 74-137 sec High ACTk CLOT 224 TIME Performed By: #### L9100.0100 #### [facility] Point of Care [address] [place] [address] CONSULTATION Observed: 12/19/2017 Status: F Source: ROCKY 2:57 PM [facility] RE[facility] Medical Records Department [address] [place] [address] Consultation 12/19/17 1451 MR#: [id number] Acct: [id number] Name: AMALIA RICHARDSON Rep #: [id number] : 1970 47 From: Bry Pelaez MD PCP: Kenzie Torrez DO Status: [facility] Location: [facility] Reason for Consult Date of Consultation: 12/19/17 Reason for Consultation: Chest pain. History of Present Illness: The patient is a 47 year old F with no previous cardiac history who presented to the emergency room today after she got concerned about the chest discomfort that she has been having over the previous 2 weeks. She says that she has had intermittent chest tightness with occasional radiation to her jaw and left arm. This has happened on at least 2 occasions when she has been exercising on CrossFit. She has also on occasion taken an antacid but with no significant improvement. This morning while at work she experienced some of the discomfort had her blood pressure checked and it was noted to be elevated. In addition she was also noted to be flushed. She presented to the emergency room and had an EKG done which was noted to be abnormal she was given sublingual nitroglycerin with a repeat EKG and the EKG had normalized. In addition she was noted to be hypertensive in the ER. She has had no dizziness or diaphoresis no near syncope or syncope no palpitations. Currently she is pain-free. She has not been under any tremendous amount of stress recently. She was scheduled to see me in the office on Tuesday due to the chest discomfort that she had been experiencing. [] Past Medical History Allergies/Adverse Reactions: Allergies Sulfa (Sulfonamide Antibiotics) Allergy (Verified 04/20/17 15:06) Other tramadol HCl [From Ultra] Adverse Reaction (Verified 04/20/17 15:06) Other Home Medications: Ambulatory Orders Medication Instructions Recorded Azathioprine [Imuran] 150 mg PO DAILY@0800 12/19/17 Omeprazole [Prilosec] 20 mg PO DAILY 12/19/17 Surgical History: cholecystectomy Smoking Status: Never smoker Alcohol: Rare Drugs: None Review of Systems - Review of Systems General: Denies: Fever, Night Sweats, Fatigue Cardiovascular: Reports: Chest Discomfort, Chest Discomfort with Exertion, Chest Tightness. Denies: Shortness of Breath, Orthopnea, PND, Peripheral Edema, Palpitations, Lightheadedness, Dizziness, Near Syncope, Syncope Respiratory: Denies: Cough, Sputum Production, Hemoptysis Gastrointestinal: Denies: Hematemesis, Hematochezia, Melena Genitourinary: Denies: Dysuria, Hematuria Skin: Denies: Rash Subjectve: Pleasant lady in no apparent distress Objective: Vital Signs Temp Pulse Resp BP Pulse Ox 97.9 F 90 14 120/97 H 98 12/19/17 12:49 12/19/17 14:07 12/19/17 12:49 12/19/17 14:07 12/19/17 13:00 Oxygen Flow Rate (L/min) 2 Oxygen Delivery Method Nasal Cannula Weight: 149 lb 14.629 oz Body Mass Index (BMI) 20.9 General: Awake, Alert, Oriented x 3 HEENT: PERRL, EOMI, Sclera Non Icteric Neck: Supple, Good ROM, No Lymph Node Enlargement Lungs: Clear to auscultation Cardiovascular: Regular Rhythm, Normal S1, Normal S2, No Murmurs, No Rubs, No Gallops Vascular: No Carotid Bruits, Normal Femoral Pulses, Normal Radial Pulses, Normal Dorsalis Pedal Pulse, Normal Posterior Tibial Pulses Abdomen: Bowel Sounds Present, Soft, Non Tender, No HSM, No Organomegaly Extremities: No Cyanosis, No Clubbing, No edema Neurological: No Focal Motor or Sensory Deficit 12/19/17 12:30: WBC 5.1, RBC 4.44, Hgb 14.6, Hct 43.3, MCV 97.5, MCH 32.9 H, MCHC 33.7, RDW 12.8, RDW Differential 45.7 H, Plt Count 282, MPV 9.1, Immature Gran % (Auto) 0.200, Neut % (Auto) 71.3 H, Lymph % (Auto) 16.9 L, [place] % (Auto) 10.2 H, Eos % (Auto) 1.2, Baso % (Auto) 0.2, Absolute Neuts (auto) 3.6, Total Counted Not Reportable 12/19/17 12:30: Sodium 140, Potassium 3.1 L, Chloride 105, Carbon Dioxide 26.0, Anion Gap 9, BUN 9, Creatinine 0.88, Est GFR (MDRD) Af Amer 88, Est GFR (MDRD) Non-Af 73, BUN/Creatinine Ratio 10.2, Glucose 90, Calcium 9.0, Troponin I < 0.015 Rhythm: EKG: Normal sinus rhythm with T-wave inversions noted in lead III and aVF, followed by an EKG demonstrating normal sinus rhythm with no acute changes. Assessment/Plan 1. Chest pain/new onset angina Patient presents with chest pain which is concerning for angina. This has happened with exertion and also with rest. Even though there have been periods of hypertension associated with his the EKG changes are rather concerning. She does not have any risk factors other than her family history. Due to the above findings I would recommend that the patient be further evaluated preferably with a cardiac catheterization rather than a stress test. The risk benefits and alternatives have been explained to her and her they understand and agreed to proceed. I would recommend the following. * Aspirin 325 mg * Ticagrelor 180 mg * Will recommend early invasive approach to the above and depending on the findings further recommendations will be made. * * Thank you for allowing me to participate in the care of your patient. Please don't hesitate to call if any issues arise 12/19/17 3489 <Electronically signed by Bry Pelaez MD> Date Bry Pelaez MD Cosigner Signature (if applicable): Date CC: Kenzie Torrez DO Signed ,URINE Collected: 12/19/2017 Status: F Source: [place]ASSEL 2:55 PM [facility] Order Comment: Order Date: 12/19/17 Has pt arrived? Y TYPE CODE TESTS RESULT OUT OF REFERENCE UNITS RANGE LAB L400.8000 Negative Normal HCGUQUAL Negative Result Comment: Very dilute urine specimens, as indicated by a low specific gravity, may not contain aircraft sales representative levels of hCG. If is still suspected, a first morning urine specimen should be collected 48 hours later and tested. Performed By: #### L400.7600 #### [facility] [address] [facility] [place], [address] CHEST 1 VIEW Observed: 12/19/2017 Status: F Source: DASSEL (PORTABLE) 12:53 PM [facility] Imaging Services [address] [place] [address] Chest 1 View (Portable) MR#: [id number] Acct: [id number] Name: AMALIA RICHARDSON Rep #: [id number] : 1970 F 47 From: Garrett Reed MD PCP: Kenzie Torrez DO Status: REG ER Study: Chest 1 View (Portable) Date of Exam: 12/19/17 Exam# [id number] Ordering Dr: Ramesh Sunshine MD STUDY: X-RAY CHEST REASON FOR EXAM: Female, 47 years old. Chest pain and shortness of breath. TECHNIQUE: Single AP portable view of the chest. COMPARISON: Comparison is made with prior study dated January 23, 2016. FINDINGS: EKG electrodes are seen. The lungs are clear and expanded. There is no demonstrated pleural abnormality. Normal size heart. Normal mediastinum and parul. Normal visualized pulmonary arteries. Normal visualized aortic arch and descending thoracic aorta. Normal visualized thoracic spine. Normal visualized ribs, clavicles, and shoulders. There is no demonstrated abnormality of the visualized soft tissue structures of the upper abdomen. RAD/Chest 1 View (Portable) IMPRESSION: Normal x-ray examination of the chest. Electronically Signed: Garrett Reed MD at 13:27 EDT Tel [phone], Service support , CC: Ramesh Sunshine MD; Kenzie Torrez DO Production Supv: Signed BASIC METABOLIC Collected: 12/19/2017 Status: F Source: DASSEL PROFILE ([facility]) 12:30 PM [facility] TYPE CODE TESTS RESULT OUT OF RANGE REFERENCE UNITS LAB L501.0100 74-106 mg/dL Normal GLU 90 Result Comment: Please note revised GLUCOSE reference range effective 2017. LAB L501.1000 7-18 mg/dL Normal BUN 9 LAB L501.1100 0.55-1.02 mg/dL Normal CREAT,SERUM 0.88 Result Comment: The validity of the calculated GFR AND GFRAA in patients over 70 years has not been determined. Clinical correlation is essential. LAB L501.1110 >60 mL/min Normal EST GFR 73 Result Comment: Non- GFR Calc LAB L501.1115 >60 mL/min Normal EST GFR - AA 88 Result Comment: GFR Calc LAB L501.1255 ml/min Normal Estimated CRCL 84.84 LAB L501.1300 10-20 RATIO Normal BUN/CRE 10.2 LAB L501.2200 8.5-10 mg/dL Normal .1 CA 9.0 LAB L501.5300 136-14 mmol/L Normal 5 NA 140 LAB L501.5600 3.5-5. mmol/L Low 1 K 3.1 LAB L501.5900 98-107 mmol/L Normal CL 105 LAB L501.6100 21.0-3 mmol/L Normal 2.0 CO2 26.0 LAB L501.6200 5-15 Normal GAP 9 Performed By: #### L500.2500, L501.4010 #### [facility] [address] [place], [address] TROPONIN-I Collected: 12/19/2017 Status: F Source: DASSEL 12:30 PM [facility] TYPE CODE TESTS RESULT OUT OF RANGE REFERENCE UNITS LAB L501.4010 <0.045 ng/mL Normal < 0.015 TROPONIN-I Result Comment: TROPONIN-I EXPECTED VALUES <0.045 Negative 0.045 - 0.590 Consistent with Cardiac Damage > OR = 0.600 Critical Value Not every elevated troponin is indicative of OR. These values should be used with clinical judgement in examining the patient's clinical picture for diagnosis. To establish a diagnosis of OR versus myocardial injury, there must be a demonstrated rise and/or fall in the troponin values, in addition to ischemic symptoms, EKG changes, new regional wall motion abnormality, and/or angiographical evidence. PLEASE NOTE: REFERENCE RANGES EDITED 17 Performed By: #### L500.2500, L501.4010 #### [facility] [address] [place], [address] CBC W/DIFF, AUTOMATED Collected: 12/19/2017 Status: F Source: [place] 12:30 [place] [facility] [place] CODE TESTS RESULT OUT OF RANGE REFERENCE UNITS LAB L100.1000 4.4-11.0 K/mm3 Normal WBC 5.1 LAB L100.1200 4.2-5.4 M/mm3 Normal RBC 4.44 LAB L100.1300 12.0-15.0 g/dl Normal HGB 14.6 LAB L100.1400 37-47 % Normal HCT 43.3 LAB L100.1500 81-99 fL Normal MCV 97.5 LAB L100.1600 27.0-32.0 pg High MCH 32.9 LAB L100.1700 32-36 g/gl Normal MCHC 33.7 LAB L100.1810 11.6-14.6 % Normal RDW CV 12.8 LAB L100.1820 35.1-43.9 fl High RDW SD 45.7 LAB L100.1900 150-450 K/mm3 Normal PLT 282 LAB L100.2000 6.2-12.0 fl Normal MPV 9.1 LAB L100.2100 47-70 % High NEUT% 71.3 LAB L100.2200 19-41 % Low LY% 16.9 LAB L100.2300 0-10 % High MONO% 10.2 LAB L100.2400 0-5 % Normal EO% 1.2 LAB L100.2500 0-1 % Normal BASO% 0.2 LAB L100.2550 0.0-0.9 % Normal IM GRAN % 0.200 Result Comment: IG% - Immature Granulocytes (promyelocytes, myelocytes and metamyelocytes) > 1% indicates that a LEFT SHIFT is Present. LAB L100.2620 2.0-7.7 X10 3/uL Normal Absolute Neut 3.6 LAB L100.2720 0.83-4.51 X10 3/ul Normal Absolute Lymph 0.86 Performed By: #### L100.0100 #### [facility] [address] [place], [place], [id number] URINALYSIS, EMPLOYEE Collected: 11/25/2017 Status: F Source: DASSEL 6:48 AM [facility] [place] CODE TESTS RESULT OUT OF RANGE REFERENCE UNITS LAB L400.3000 Yellow COLOR Normal Yellow LAB L400.3050 Clear Normal CLARITY Clear LAB L400.3200 Normal mg/dl Normal GLUCOSE, UR Normal LAB L400.3300 Negative mg/dL Normal BILIRUBIN URINE Negative LAB L400.3400 Negative mg/dl High 5 KETONE UR LAB L400.3465 1.002-1.030 Normal SP.GR. DIPSTX 1.020 LAB L400.3550 5.0 - 8.0 pH UR Normal 6.0 LAB L400.3600 Negative mg/dl PROT Normal DIPSTX Negative LAB L400.3700 Normal mg/dl Normal UROBILI Normal LAB L400.3750 Negative Normal NITRITE UR Negative LAB L400.3780 Negative /ul High 25 OCCULT BLOOD-UR LAB L400.3800 Negative /ul High LEUK 25 ESTERASE Performed By: #### L400.0100 #### [facility] [address] [place], [place], [id number] NICOTINE URINE DRUG Collected: 11/25/2017 Status: F Source: [place]AS[place] SCREEN 6:48 AM [facility] [place] CODE TESTS RESULT OUT OF RANGE REFERENCE UNITS LAB L505.6250 TO BE Normal CONFIRMED Result Comment: CONFIRMATORY TESTING FOR ALL POSITIVE URINE DRUG SCREEN RESULTS WILL ONLY BE SENT OUT UPON PHYSICIAN ORDER. The results of Urine Drug Screen methods provide only preliminary analytical test results. A more specific alternate chemical method must be used in order to obtain a confirmed analytical result. Gas chromatography/mass spectrometery (GC/MS) is the preferred confirmatory method. Clinical consideration and professional judgement should be applied to any drug of abuse test result, particularly when preliminary positive results are used. LAB L505.6270 <200 ng/mL Normal COT DRG Negative SCREEN Result Comment: Cotinine is the first-stage metabolite of Nicotine. Performed By: #### L505.6240 #### [facility] [address] [place], [address] EMPLOYEE PROFILE Collected: 11/25/2017 Status: F Source: [place] 6:48 AM [facility] [place] CODE TESTS RESULT OUT OF RANGE REFERENCE UNITS LAB L501.0100 74-106 mg/dL Normal GLU 98 Result Comment: Please note revised GLUCOSE reference range effective 2017. LAB L501.1000 7-18 mg/dL Normal BUN 9 LAB L501.1100 0.55-1.02 mg/dL Normal CREAT,SERUM 0.74 Result Comment: The validity of the calculated GFR AND GFRAA in patients over 70 years has not been determined. Clinical correlation is essential. LAB L501.1110 >60 mL/min Normal EST GFR 88 Result Comment: Non- GFR Calc LAB L501.1115 >60 mL/min Normal EST GFR - AA 107 Result Comment: GFR Calc LAB L501.1300 10-20 RATIO Normal BUN/CRE 12.1 LAB L501.1400 2.6-6.0 mg/dL Normal URIC 4.6 Result Comment: The drugs N-Acetylcysteine and Metamizole may falsely depress this assay. LAB L501.1500 6.4-8.2 g/dL Normal T PROT 7.4 LAB L501.1800 3.2-5.0 g/dL Normal ALB 3.8 LAB L501.1950 2.2-4.2 g/dL Normal GLOB 3.6 LAB L501.2000 0.9-2.4 RATIO Normal A/G 1.1 LAB L501.2200 8.5-10.1 mg/dL Normal CA 8.5 LAB L501.2300 2.5-4.9 mg/dL Normal PHOS 2.6 LAB L501.4100 15-37 U/L Normal AST 22 LAB L501.4305 45-117 U/L Normal ALK P 63 LAB L501.4405 13-56 U/L Normal ALT 29 LAB L501.4600 0.20-1.00 mg/dL Normal T BILI 0.60 LAB L501.4700 0.00-0.30 mg/dL Normal D BILI 0.15 LAB L501.4900 200 mg/dL Normal CHOL 173 Result Comment: <200 mg/dL Desirable 200-240 mg/dL Borderline >240 mg/dL High Risk LAB L501.5000 mg/dL Normal TRIG 70 Result Comment: The drugs N-Acetylcysteine and Metamizole may falsely depress this assay. Serum Triglycerides Reference Interval Normal <150 mg/dL Borderline high 150 - 199 mg/dL High 200 - 499 mg/dL Very High > or = 500 mg/dL LAB L501.5300 136-145 mmol/L Normal NA 144 LAB L501.5600 3.5-5.1 mmol/L Normal K 4.1 LAB L501.5900 98-107 mmol/L High CL 109 LAB L501.6100 21.0-32.0 mmol/L Normal CO2 25.0 LAB L501.6200 5-15 Normal GAP 10 LAB L501.6400 mg/dL Normal HDL 55 Result Comment: The drugs N-Acetylcysteine and Metamizole may falsely depress this assay. Reference Range HDL <40 mg/dL Low HDL Cholesterol HDL >or= 60 mg/dL High HDL Cholesterol LAB L501.6475 Normal CHOL:HDL 3.10 LAB L501.6500 0-130 mg/dL Normal LDL 104 LAB L501.6600 5-40 mg/dL Normal VLDL 14 LAB L504.2610 84-246 U/L Normal LDH 141 Performed By: #### L500.2900 #### [facility] [address] [place], [address] CBC, EMPLOYEE Collected: 11/25/2017 Status: F Source: [place] 6:48 AM [facility] [place] CODE TESTS RESULT OUT OF RANGE REFERENCE UNITS LAB L100.1000 4.4-11.0 K/mm3 Normal WBC 5.3 LAB L100.1200 4.2-5.4 M/mm3 Low RBC 4.16 LAB L100.1300 12.0-15.0 g/dl Normal HGB 13.7 LAB L100.1400 37-47 % Normal HCT 40.8 LAB L100.1500 81-99 fL Normal MCV 98.1 LAB L100.1600 27.0-32.0 pg High MCH 32.9 LAB L100.1700 32-36 g/gl Normal MCHC 33.6 LAB L100.1810 11.6-14.6 % Normal RDW CV 12.7 LAB L100.1820 35.1-43.9 fl High RDW SD 44.6 LAB L100.1900 150-450 K/mm3 Normal PLT 279 LAB L100.2000 6.2-12.0 fl Normal MPV 9.4 LAB L100.2110 47-70 % Normal NEUT% 67.1 LAB L100.2210 19-41 % Normal LY% 22.7 LAB L100.2310 0-10 % Normal MONO% 8.7 LAB L100.2410 0-5 % Normal EO% 1.1 LAB L100.2510 0-1 % Normal BASO% 0.2 LAB L100.2620 2.0-7.7 X10 3/uL Normal Absolute Neut 3.6 LAB L100.2720 0.83-4.51 X10 3/ul Normal Absolute Lymph 1.20 Performed By: #### L100.0200 #### [facility] [address] [place], [address] BREAST LIMITED Observed: 06/10/2017 Status: F Source: [place]AS[place] UNILATERAL 11:03 AM [facility] [place] [facility] [address] [place] [address] Breast Limited Unilateral MR#: [id number] Acct: [id number] Name: AMALIA RICHARDSON Rep #: [id number] : 1970 F 47 From: Garrett Reed MD PCP: Kenzie Torrez DO Status: REG CLI Study: Breast Limited Unilateral Date of Exam: 06/10/17 Exam# [id number] Ordering Dr: Jazzy Diaz MIX TECHNICIAN-C STUDY: ULTRASOUND BREAST - RIGHT REASON FOR EXAM: Female, 47 years old. Abnormal screening mammogram. TECHNIQUE: Axial and longitudinal images of the RIGHT breast were performed with a high resolution ultrasound transducer. COMPARISON: Comparison is made with prior study dated June 07, 2017. FINDINGS: RIGHT Breast: 2 cysts are seen. The larger measures 2.7 cm x 2.2 cm x 1.4 cm. The smaller cyst measures 1.4 cm x 1.2 cm x 0.9 cm. US/Breast Limited Unilateral IMPRESSION: The mammographic abnormality corresponds to 2 small adjacent cysts in the retroareolar region. ASSESSMENT CATEGORY: BIRADS Category 2: Benign. A letter regarding these results will be sent to the patient by the facility within 30 days. Electronically Signed: Garrett Reed MD at 12:38 EST Tel [phone], Service support , CC: ESTHER Diaz; Kenzie Torrez DO Production Supv: Signed SCREENING MAMM (CAD), Observed: 06/07/2017 Status: F Source: ROCK[place] BILAT 3:18 PM [facility] [place] [facility] [address] [place] [address] SCREENING MAMM (CAD), BILAT MR#: [id number] Acct: [id number] Name: AMALIA RICHARDSON Rep #: [id number] : 1970 F 47 From: Garrett Reed MD PCP: Kenzie Torrez DO Status: REG CLI Study: SCREENING MAMM (CAD), BILAT Date of Exam: 06/07/17 Exam# [id number] Ordering Dr: Jazzy Diaz NP-Radha MAMMOGRAPHY - BILATERAL SCREENING REASON FOR EXAM: Female, 47 years old. Routine annual screening examination. PERTINENT HISTORY: Non-contributory. TECHNIQUE: Digital bilateral breast shon (3D mammographic acquisition) in the CC and MLO projections. 2-D mediolateral oblique (MLO) and craniocaudad (CC) views of both breasts were obtained. CAD: Full Field Digital Mammography with Computer Added Detection was performed. COMPARISON: Comparison is made with prior study dated October 15, 2015 and October 03, 2014. FINDINGS: Breast Composition: The breasts are heterogeneously dense, which may obscure small masses. Stable appearance of the left retroareolar nodular densities in keeping with cysts as seen on prior sonogram. There now is evidence of a 2.9 cm x 2.4 cm well-defined nodule in the superior retroareolar region of the right breast. Correlation with ultrasound is recommended. No other significant abnormalities are identified. HPBI/SCREENING MAMM (CAD), BILAT IMPRESSION: New nodular density in the right breast as described. Correlation with ultrasound is recommended. ASSESSMENT CATEGORY: BIRADS Category 0: Incomplete. Need additional imaging evaluation. A letter regarding these results will be sent to the patient by the facility within 30 days. Approximately 10% of breast cancers are not detected by mammography. A normal mammogram should not delay biopsy of a clinically suspicious abnormality. [id number] Electronically Signed: Garrett Reed MD at 16:04 EST Tel [phone], Service support , CC: ESTHER Diaz; Kenzie Torrez DO Production Supv: Signed ALLERGIES ALLERGIES DATE TYPE / CODE NAME / CODE REACTION SEVERITY SOURCE 04/20/2018 Drug omeprazole/F0060 lupus rash Unknown [facility] 63767(RXNORM) [facility] 011340(SNOM Repository ED CT) 04/14/2018 Drug Cgpemhs-Mjc-Bjw fever, abn Unknown [facility]/416 Reductase liver function Hospital 613581(SNOM Inhibitor/S64195 test Repository ED CT) 0095(RXNORM) 03/24/2018 Drug tramadol Other Unknown [facility] HCl/K003501689(R Hospital 826871(SNOM XNORM) Repository ED CT) 03/24/2018 Drug Sulfa Other Unknown [facility]/416 (Sulfonamide Hospital 779215(SNOM Antibiotics)/F[address]) 1419278(RXNORM) ENCOUNTERS ENCOUNTERS ADMIT/DISCHARGE ACCOUNT NUMBER ADMITTING ENCOUNTER LOCATION SOURCE CLASS 05/02/2018 [id number] LISA, Inpatient Building:R [facility] A Encounter oom: [place] 4010Bed: A [facility] Repository 04/27/2018 [id number] Ambulatory Building:[facility] Repository 04/27/2018 [id number] Ambulatory Building:[facility] Repository 04/18/2018 [id number] Ambulatory BMSBuilding: [place] BMS[facility] Repository 04/17/2018/04/19/19 [id number] ASIF, Inpatient Building:R [address] Encounter oom: [place] 7028Bed: A [facility] Repository 04/17/2018 [id number] Ambulatory BMSBuilding: [place] BMS.[facility] Repository 04/17/2018/04/17/19 [id number] Ambulatory [address] ding:CLSPRoo Repository m: [id number] 04/17/2018/04/17/19 [id number] Ambulatory BMSBuilding: [place] [facility] Repository 04/07/2018/04/07/20 [id number] Ambulatory BMSBuilding: [place] 18 BMS.[facility] Repository 04/07/2018 [id number] Ambulatory [facility] ding:LAB Repository 04/07/2018 [id number] Ambulatory BMSBuilding: [place] BMS.[facility] Repository 03/24/2018/03/24/20 [id number] Ambulatory BMSBuilding: [place] 18 BMS.[facility] Repository 03/23/2018 [id number] Ambulatory [facility] ding:LAB Repository 02/08/2018/02/09/20 [id number] Ambulatory BMSBuilding: [place] 18 BMS.[facility] Repository 02/06/2018/02/09/20 [id number] Ambulatory [address] ding:CR Repository 02/03/2018 [id number] Ambulatory [facility] ding:LAB Repository 01/20/2018 [id number] Ambulatory BMSBuilding: [place] BMS.CF.[facility] Repository 01/20/2018 [id number] Ambulatory [facility] ding:CVS Repository 01/12/2018/01/13/20 [id number] Emergency [address] ding:ED Repository 01/11/2018 [id number] Ambulatory [facility] ding:CT Repository 01/11/2018/01/12/20 [id number] Ambulatory BMSBuilding: [place] 18 BMS.[facility] Repository 01/10/2018/01/11/20 [id number] Ambulatory [address] ding:ENRoom: Repository AC03 01/10/2018/01/11/20 [id number] Ambulatory BMSBuilding: [place] 18 BMS.CF.[facility] Repository 01/10/2018 [id number] Ambulatory BMSBuilding: [place] [facility] Repository 01/06/2018 [id number] Ambulatory [facility] ding:CR Repository 12/23/2017/12/24/19 [id number] Ambulatory BMSBuilding: [place] 18 BMS.[facility] Repository 12/21/2017 [id number] Ambulatory BMSBuilding: [place] BMS.[facility] Repository 12/20/2017 [id number] Ambulatory BMSBuilding: [place] BMS.[facility] Repository 12/20/2017 [id number] Ambulatory BMSBuilding: [place] [facility] Repository 12/19/2017/12/21/19 [id number] Bry Pelaez Ambulatory [place] ding:ICURoom Repository : HXC09Iyz: 1 12/19/2017 [id number] Bry Pelaez Ambulatory BMSBuilding: [place] BMS.CF.[facility] Repository 12/19/2017 [id number] Ambulatory BMSBuilding: [place] BMS.CF[facility] Repository 11/25/2017 [id number] Ambulatory [facility] ding:EMPH Repository 06/10/2017 [id number] Ambulatory [facility] ding:US Repository 06/07/2017 [id number] Ambulatory [facility] ding: Repository 04/20/2017/04/20/19 [id number] Ambulatory BMSBuilding: [place] [address] Repository PAYERS PAYERS ENCOUNTER GUARANTOR PAYER SUBSCRIBER SOURCE 05/02/2018 AMALIA Maya Primary AMALIA Maya [facility] SPRANGDOB: Insurance:[facility]: [place] [id number] Number: [id number] [address] [id number] [address] [place] [address]Xtn: Date:9493-56-38Iefd [address] [place] [address] Repository Name:[place] [address]897[address]Tel: [phone] 04/27/2018 AMALIA Maya Primary AMALIA Maya [facility] SPRANGDOB: Insurance:[facility]: [place] [id number] Number: [id number] [address] [id number] [address] [place] [address]Irw: Date:4575-97-24Hmfq[address] Repository Name:[place] 6897[address]Tel: [phone] () 04/27/2018 AMALIA Maya Primary AMALIA Maya [place] [employer] SPRANGDOB: [facility] [place] [id number] Number: [id number] [address], [id number] [address] [facility] [address]Tlv: Date:9127-12-90Srch [address] [place] [address] Repository Name:[facility] [address]Qsf: [phone] () [phone] () 04/18/2018 JAMARCUS Marroquin Primary Insurance:[facility] AMALIA J [place] [id number] [facility]ITALANG[facility]: [address] [id number] Hospital [address]Hyv: (330) Number: Repository [phone] () [id number] Date:7034-75-24[address] [address]JR[place]KDP[place], [place] [address]FX: CHECK WEBSITE 04/18/2018 Secondary NOT GIVENUNK [place] Insurance:SELF PAY [facility] Number: Effective Repository Date:2018-04-18 04/17/2018 [facility]ALIA [facility] [place] [id number] Number: [id number] [address], [id number] 71 [facility] [address]Snj: Date:8256-84-79Xsmr [address] [place] [address] Repository Name:[facility] [address]Rcr: () () [phone] () 04/17/2018 JAMARCUS Marroquin Primary Insurance:[facility] AMALIA J [place] [id number] [facility] [address] [id number] Hospital [address]Zpu: (330) Number: Repository [phone] () [id number] Date:8249-75-29VK [address] [address]FGJVCQZPR, [place] [address]DO: CHECK WEBSITE 04/17/2018 Secondary NOT GIVENUNK [place] Insurance:SELF PAY [facility] Number: Effective Repository Date:2018-04-17 04/17/2018 JAMARCUS Marroquin Primary Insurance:[facility] AMALIA [place] [id number] [facility] SPRANGDOB: [address] [id number] Hospital [address]Kbs: (330) Number: Repository [phone] () [id number] Date:8336-38-64WA [address] [address]IMHJQSPYV, [place] [address]OA: CHECK WEBSITE 04/17/2018 Secondary NOT GIVENUNK [place] Insurance:SELF PAY [facility] Number: Effective Repository Date:2018-04-10 04/17/2018 JAMARCUS Marroquin Primary Insurance:[facility] AMALIA Maya [place] [id number] [facility] SPRANGDOB: [address] 5875-50-51[place] [address]Tel: (330) Number: Repository [phone] () [id number] Date:8119-32-69BD [address] [address]JUYLJHHPI, [place] [address]KE: CHECK WEBSITE 04/17/2018 Secondary NOT GIVENUNK [place] Insurance:SELF PAY [facility] Number: Effective Repository Date:2018-04-17 04/07/2018 JAMARCUS Marroquin Primary Insurance:[facility] AMALIA [place] [id number] [facility] SPRANGDOB: [address] [id number] Hospital [address]Ogu: (330) Number: Repository [phone] () [id number] Date:4187-37-15WA [address] [address]ADRZPERMG, [place] [address]NP: CHECK WEBSITE 04/07/2018 Secondary NOT GIVENUNK [place] Insurance:SELF PAY [facility] Number: Effective Repository Date:2018-04-07 04/07/2018 JAMARCUS Marroquin Primary Insurance:[facility] AMALIA [place] [id number] [facility] SPRANGDOB: [address] [id number] Hospital [address]Xub: (330) Number: Repository [phone] () [id number] Date:4401-48-03UC [address] [address]LCJNPNSTV, [place] [address]WR: CHECK WEBSITE 04/07/2018 Secondary NOT GIVENUNK [place] Insurance:SELF PAY [facility] Number: Effective Repository Date:2018-04-07 04/07/2018 JAMARCUS Marroquin Primary Insurance:[facility] AMALIA J [place] [id number] [facility] SPRANGDOB: [address] [id number] Hospital [address]Fzk: (330) Number: Repository [phone] () [id number] Date:3384-60-88TY [address] [address]HGQXPLVXX, [place] [address]EF: CHECK WEBSITE 04/07/2018 Secondary NOT GIVENUNK [place] Insurance:SELF PAY [facility] Number: Effective Repository Date:2018-04-07 03/24/2018 JAMARCUS Marroquin Primary Insurance:[facility] AMALIA Francesco [place] [id number] [facility] SPRANGDOB: [address] [id number] Hospital [address]Rxs: (330) Number: Repository [phone] () [id number] Date:2564-99-02JV [address] [address]YHQDARDBK, [place] [address]TU: CHECK WEBSITE 03/24/2018 Secondary NOT GIVENUNK [place] Insurance:SELF PAY [facility] Number: Effective Repository Date:2018-03-24 03/23/2018 JAMARCUS Marroquin Primary Insurance:[facility] AMALIA Maya [place] [id number] [facility] SPRANGDOB: [address] [id number] Hospital [address]Djz: (330) Number: Repository [phone] () [id number] Date:7103-73-24JP [address] [address]TWKLRVCSG, [place] [address]FN: CHECK WEBSITE 03/23/2018 Secondary NOT GIVENUNK [place] Insurance:SELF PAY [facility] Number: Effective Repository Date:2018-03-23 02/08/2018 JAMARCUS Marroquin Primary Insurance:[facility] AMALIA Maya [place] [id number] [facility] SPRANGDOB: [address] [id number] Hospital [address]Uuk: (330) Number: Repository [phone] () [id number] Date:7728-57-65WR [address] [address]CWNVOMZMI, [place] [address]CN: CHECK WEBSITE 02/08/2018 Secondary NOT GIVENUNK [place] Insurance:SELF PAY [facility] Number: Effective Repository Date:2018-02-08 02/06/2018 JAMARCUS Marroquin Primary Insurance:[facility] AMALIA Maya [place] [id number] [facility] SPRANGDOB: [address] [id number] Hospital [address]Dez: (330) Number: Repository [phone] () [id number] Date:8837-87-84MW [address] [address]NMICJHOPT, [place] [address]EI: CHECK WEBSITE 02/06/2018 Secondary NOT GIVENUNK [place] Insurance:SELF PAY [facility] Number: Effective Repository Date:2018-01-06 02/03/2018 JAMARCUS Marroquin Primary Insurance:[facility] AMALIA Francesco [place] [id number] [facility] SPRANGDOB: [address] [id number] Hospital [address]Bxo: (330) Number: Repository [phone] () [id number] Date:9149-06-48BU [address] [address]DYGVKHXAV, [place] [address]YT: CHECK WEBSITE 02/03/2018 Secondary NOT GIVENUNK [place] Insurance:SELF PAY [facility] Number: Effective Repository Date:2018-02-03 01/20/2018 JAMARCUS Marroquin Primary Insurance:[facility] AMALIA Maya [place] [id number] [facility] SPRANGDOB: [address] [id number] Hospital [address]Xlb: (330) Number: Repository [phone] () [id number] Date:7220-29-03NT [address] [address], [place] [address]XY: CHECK WEBSITE 01/20/2018 Secondary NOT GIVENUNK [place] Insurance:SELF PAY [facility] Number: Effective Repository Date:2018-01-20 01/20/2018 JAMARCUS Marroquin Primary Insurance:[facility] AMALIA Maya [place] [id number] [facility] SPRANGDOB: [address] [id number] Hospital [address]Lew: (330) Number: Repository [phone] () [id number] Date:1575-29-26NF [address] [address]LBGHIXZQX, [place] [address]VK: CHECK WEBSITE 01/20/2018 Secondary NOT GIVENUNK [place] Insurance:SELF PAY [facility] Number: Effective Repository Date:2018-01-12 01/12/2018 JAMARCUS Marroquin Primary Insurance:[facility] AMALIA J [place] [id number] [facility] SPRANGDOB: [address] [id number] Hospital [address]Ygo: (330) Number: Repository [phone] () [id number] Date:6861-00-45EY [address] [address]XEITXFYKW, [place] [address]CW: CHECK WEBSITE 01/12/2018 Secondary NOT GIVENUNK [place] Insurance:SELF PAY [facility] Number: Effective Repository Date:2018-01-12 01/11/2018 JAMARCUS Marroquin Primary Insurance:[facility] AMALIA J [place] [id number] [facility] SPRANGDOB: [address] [id number] Hospital [address]Zcz: (330) Number: Repository [phone] () [id number] Date:0466-87-34ES [address] [address]NRHKEQMKE, [place] [address]DL: CHECK WEBSITE 01/11/2018 Secondary NOT GIVENUNK [place] Insurance:SELF PAY [facility] Number: Effective Repository Date:2018-01-11 01/11/2018 JAMARCUS Marroquin Primary Insurance:[facility] AMALIA J [place] [id number] [facility] SPRANGDOB: [address] 2256-79-29HPL Hospital [address]Eyx: (330) Number: Repository [phone] () [id number] Date:5649-65-24FM [address] [address], [place] [address]UZ: CHECK WEBSITE 01/11/2018 Secondary NOT GIVENUNK [place] Insurance:SELF PAY [facility] Number: Effective Repository Date:2018-01-11 01/10/2018 JAMARCUS Marroquin Primary Insurance:[facility] AMALIA Maya Rocky [id number] [facility] SPR[facility]DOB: [address] [id number] [facility] [address]Kzp: [phone]) Number: Repository [phone] () [id number] Date:4886-87-00SQ [address] [address]FSZPFN, [place] [address]CY: CHECK WEBSITE 01/10/2018 Secondary NOT GIVENUNK [place] Insurance:SELF PAY [facility] Number: Effective Repository Date:2018-01-10 01/10/2018 JAMARCUS Marroquin Primary Insurance:[facility] AMALIA Maya [place] [id number] [facility] SPR[facility]DOB: [address] [id number] [address]Tel: [phone]) Number: Repository [phone] () [id number] Date:5604-18-41EZ [address] [address], [place] [address]OQ: CHECK WEBSITE 01/10/2018 Secondary NOT GIVENUNK [place] Insurance:SELF PAY [facility] Number: Effective Repository Date:2018-01-10 01/10/2018 JAMARCUS Marroquin Primary Insurance:[facility] AMALIA [place]oster [id number] [facility] SPRANGDOB: [address] [id number] Hospital [address]Hun: (330) Number: Repository [phone] () [id number] Date:4269-39-75OB [address] [address]XTIJNZUJB, [place] [address]FZ: CHECK WEBSITE 01/10/2018 Secondary NOT GIVENUNK [place] Insurance:SELF PAY [facility] Number: Effective Repository Date:2018-01-10 01/06/2018 JAMARCUS Marroquin Primary Insurance:[facility] AMALIA [place] [id number] [facility] SPR[facility]DOB: [address] [id number] Hospital [address]Slo: [phone]) Number: Repository [phone] () [id number] Date:7553-47-86OD [address] [address]GGHZQGJLO, [place] [address]GD: CHECK WEBSITE 01/06/2018 Secondary NOT GIVENUNK [place] Insurance:SELF PAY [facility] Number: Effective Repository Date:2017-12-29 12/23/2017 Jamarcus Marroquin Primary Insurance:[facility] AMALIA J Rocky [id number] [facility] SPRANGDOB: [address] [id number] Hospital [address]Cyx: ([phone]) Number: Repository [phone] () [id number] Date:3903-32-12DK [address] [address]OGDSTJJD, [place] [address]JD: CHECK WEBSITE 12/23/2017 Secondary NOT GIVENUNK [place] Insurance:SELF PAY [facility] Number: Effective Repository Date:2017-12-20 12/21/2017 Jamarcus Marroquin Primary Insurance:[facility] AMALIA Francesco [place] [id number] [facility] SPRANGDOB: [address] [id number] Hospital [address]Bfe: (330) Number: Repository [phone] () [id number] Date:6265-16-88UZ [address] [address]WNJDVIYWM, [place] [address]DM: CHECK WEBSITE 12/21/2017 Secondary NOT GIVENUNK [place] Insurance:SELF PAY [facility] Number: Effective Repository Date:2017-12-08 12/20/2017 Jamarcus Marroquin Primary Insurance:[facility] AMALIA J [place] [id number] [facility] SPR[facility]DOB: [address] [id number] Hospital [address]Fez: (330) Number: Repository [phone] () [id number] Date:2205-14-65PS [address] [address]YPRXTOEPU, [place] [address]DI: CHECK WEBSITE 12/20/2017 Secondary NOT GIVENUNK [place] Insurance:SELF PAY [facility] Number: Effective Repository Date:2017-12-20 12/20/2017 JAMARCUS Marroquin Primary Insurance:[facility] AMALIA Francesco [place] [id number] [facility] SPR[facility]DOB: [address] [id number] Hospital [address]Fly: (330) Number: Repository [phone] () [id number] Date:5600-03-60IE [address] [address]MFEGGOCLN, [place] [address]ZC: CHECK WEBSITE 12/20/2017 Secondary NOT GIVENUNK [place] Insurance:SELF PAY [facility] Number: Effective Repository Date:2017-12-20 12/19/2017 Jamarcus Marroquin Primary Insurance:[facility] AMALIA Maya [place] [id number] [facility] SPR[facility]DOB: [address] [id number] Hospital [address]Pbe: (330) Number: Repository [phone] () [id number] Date:2026-71-27DL [address] [address]IAIOFQFQW, [place] [address]LG: CHECK WEBSITE 12/19/2017 Secondary NOT GIVENUNK [place] Insurance:SELF PAY [facility] Number: Effective Repository Date:2017-12-19 12/19/2017 Jamarcus Marroquin Primary Insurance:[facility] AMALIA Maya Rocky [id number] [facility] SPR[facility]DOB: [address] [id number] Hospital [address]Zrx: (330) Number: Repository [phone] () [id number] Date:3002-80-86DL [address] [address]LWJNOGGDD, [place] [address]ZP: CHECK WEBSITE 12/19/2017 Secondary NOT GIVENUNK [place] Insurance:SELF PAY [facility] Number: Effective Repository Date:2017-12-19 12/19/2017 Jamarcus Marroquin Primary Insurance:[facility] AMALIA Maya [place] [id number] [facility] SPRANGDOB: [address] [id number] Hospital [address]Bkf: (330) Number: Repository [phone] () [id number] Date:0367-97-89SV [address] [address]WHLVRXSWN, [place] [address]XE: CHECK WEBSITE 12/19/2017 Secondary NOT GIVENUNK [place] Insurance:SELF PAY [facility] Number: Effective Repository Date:2017-12-19 11/25/2017 Jamarcus Marroquin Primary NOT GIVENUNK [place] [id number] TR Insurance:SELF PAY [address] [address]Ofi: (330) Number: Effective Repository [phone] () Date:2017-11-25 06/10/2017 Jamarcus Marroquin Primary Insurance:[facility] AMALIA [place] [id number] TR [facility] SPRANGDOB: [address] [id number] Hospital [address]Vyy: (330) Number: Repository [phone] () [id number] Date:5486-54-46HH [address] [address]JISJZEA, [place] [address]QH: CHECK WEBSITE 06/10/2017 Secondary NOT GIVENUNK [place] Insurance:SELF PAY [facility] Number: Effective Repository Date:2017-06-08 06/07/2017 Jamarcus Marroquin Primary Insurance:[facility] AMALIA [place] [id number] [facility] SPR[facility]DOB: [address] [id number] Hospital [address]Xmv: (330) Number: Repository [phone] () [id number] Date:0545-64-33VI [address] [address]EXYJPNO, [place] [address]BH: CHECK WEBSITE 06/07/2017 Secondary NOT GIVENUNK [place] Insurance:SELF PAY [facility] Number: Effective Repository Date:2017-04-27 04/20/2017 Jamarcus Marroquin Primary Insurance:[facility] AMALIA [place] [id number] [facility] SPR[facility]: [address] [id number] Hospital [address]Bfk: (330) Number: Repository [phone] () [id number] Date:4304-31-80KD [address] [address]KRKPDJQWK, [place] [address]KS: CHECK WEBSITE 04/20/2017 Secondary NOT GIVENUNK [place] Insurance:SELF PAY [facility] Number: Effective Repository Date:2017-03-13
== END ==
PROVIDERS: Family Provider Family Medicine; PCP Family Medicine; Referring Provider Internal Medicine Cardiovascular Disease; Visit Provider Internal Medicine Cardiovascular Disease
DX: I25.119 Atherosclerotic heart disease of native coronary artery with unspecified angina pectoris (principal)
CPT/HCPCS: 36415; 80061; 80076

== ENCOUNTER → 2018-04-07 11:09 | Outpatient (CLI) | payer OTHER, SELFPAY ==
[2018-03-24 14:31] VITALS: BMI 24.9
== END ==
PROVIDERS: Family Provider Family Medicine; PCP Family Medicine; Referring Provider Physician Assistant Medical; Visit Provider Physician Assistant Medical
DX: R07.9 Chest pain, unspecified (principal)
CPT/HCPCS: 36415; 84484

== ENCOUNTER 2018-04-17 10:20 | Day surgery (SDC) | payer OTHER, SELFPAY ==
[2018-03-24 14:31] VITALS: BMI 24.9
[2018-04-14 09:43] VITALS: BMI 24.9
[2018-04-17 10:36] LABS: Absolute Lymphocyte Count 0.79 X10^3/ul (0.83-4.51); Absolute Neutrophil Count 3.5 X10^3/uL (2.0-7.7); Basophil# 0.01 X10^3/uL; Basophil% 0.2 % (0-1); Eosinophil# 0.04 X10^3/uL; Eosinophils% 0.8 % (0-5); Hematocrit 41.3 % (37-47); Hemoglobin 13.6 g/dl (12.0-15.0); Lymphocyte # 0.79 X10^3/ul (4.0); Lymphocyte % 16.5 % (19-41); Mean Corp Hgb Conc 32.9 g/gl (32-36); Mean Corpuscular Hgb 32.9 pg (27.0-32.0); Mean Corpuscular Volume 99.8 fL (81-99); Mean Platelet Vol. 8.4 fl (6.2-12.0); Monocyte# 0.45 X10^3/uL; Monocyte% 9.4 % (0-10); Neutrophil % 72.9 % (47-70); Platelet Count 294 K/mm3 (150-450); RBC Distribution Width CV 12.9 % (11.6-14.6); RBC Distribution Width SD 47.1 fl (35.1-43.9); Red Blood Count 4.14 M/mm3 (4.2-5.4); White Blood Count 4.8 K/mm3 (4.4-11.0)
[2018-04-17 10:38] LABS: POSITIVE COUNT NO; POSITIVE DIFFERENTIAL NO; POSITIVE MORPHOLOGY NO
[2018-04-17 10:49] LABS: Anion Gap 6 (5-15); BUN 8 mg/dL (7-18); BUN/Creat Ratio 12.4 RATIO (10-20); Chloride 107 mmol/L (98-107); Creatinine, Serum 0.65 mg/dL (0.55-1.02); EST Glomerular Filtration Rate 104 mL/min (>60); Est Glom Filt Rate - Afr Amer 126 mL/min (>60); Estimated Creatinine Clearance 79.87 ml/min; Glucose 111 mg/dL (74-106); Potassium 4.1 mmol/L (3.5-5.1); Sodium Level 140 mmol/L (136-145)
[2018-04-17 11:18] LABS: Pregnancy, Serum, hCG Quali. NEGATIVE Negative (0-9 Nonpreg)
--- NOTE | 2018-04-17 12:30 | CASEMGMT ---
According to the [facility] website, the following are in-network tertiary facilities: [facility], [facility], [facility], [facility], [place], [facility], and . Aan CLOUD CM
--- NOTE | 2018-04-17 14:29 | CL.D_ITS ---
Patient Name: ABDIEL RICHARDSON Study Date: 04/17/2018 Performing: Bry Pelaez MD Ht: 61.02 inches 155 cm : 1970 Wt: 132.28 lbs 60 kg Age: 48 Gender: female BSA: 1.59 PROCEDURE(S) PERFORMED [id number]/[facility] CLINICAL PROFILE AND INDICATIONS Indications: Stable Known CAD Heart Failure: None Stress/Imaging Stress/Image Study Performed: No Angina Classification Anginal Classification w/in 2 Weeks: CCS III CAD Presentations: Unstable angina. CONCLUSIONS Previously placed stent in the mid left anterior descending artery is patent but it appears there is a new cleft like 80% stenosis noted at the ostium of the LAD. RECOMMENDATIONS Would recommend discussion in a tertiary care center for PCI versus coronary artery bypass surgery DESCRIPTION OF PROCEDURE The patient arrived to the procedure lab. The risks and benefits of the procedure as well as a full d escription of our services here and current unavailability of surgical backup were fully explained to the patient and/or their significant other prior to the catheterization. The Timeout was completed, verifying the correct patient and procedure. The patient's procedural site was prepped and draped in the usual fashion. Local anesthetic was given subcutaneously to right groin region with Lidocaine 2%. Using a modified Seldinger technique, arterial access was obtained via the right femoral artery, a 5 Fr sheath was inserted. Left Coronary Artery selective angiography was performed in multiple views u sing a 5 Fr. JL4 catheter. Right Coronary Artery selective angiography was then performed in multiple views using a 5 Fr. 3DRC (Ian) catheter.Contrast was injected through the sheath and the Right Iliac and Femoral artery were assessed for possible closure device.The arterial sheath was pulled and a Mynx closure device was deployed for hemostasis CORONARY ANGIOGRAPHY DOMINANCE: Right Dominant LEFT MAIN: Angiographically normal LEFT ANTERIOR DECENDING ARTERY: OSTIAL LAD: Cleft like 80 pct stenosis MID LAD: Previously placed stent is patent CIRCUMFLEX ARTERY: PROX CIRC: 40 % Stenosis MID CIRC: Mild luminal irregularities RIGHT CORONARY ARTERY: No significant disease noted COMPLICATIONS No Complications PROCEDURE MEDICATIONS Versed 1 mg IV Fentanyl 50 mcg IV Versed 1 mg IV Oxygen: 2 L/min via nasal cannula SUMMARY OF HEMODYNAMIC DATA Time AIR REST ECG 11:14:00 AO 130/66 (94) SA 12:05:14 RM AIR REST 12:58:29 Signed By Bry Pleaez MD On 04/17/2018 2:28:44 PM Bry Pelaez MD
[2018-04-17 15:46] VITALS: BP 113/76; PULSE 78; RESP 16; TEMP 36.8; O2SAT 94; BMI 24.9
[2018-04-17 15:53] VITALS: PULSE 87
[2018-04-17 15:55] VITALS: BP 113/76; PULSE 78; RESP 16; TEMP 36.8
[2018-04-17 16:53] VITALS: O2SAT 95
[2018-04-17 18:52] VITALS: PULSE 83
--- NOTE | 2018-04-17 19:42 | NURSING ---
Called report to nurse Lopez RN at [facility] at this time - no further questions at this time and room clean and ready at this time
[2018-04-17 20:00] VITALS: BP 108/72; PULSE 79; RESP 16; TEMP 36.8; O2SAT 97
== END 2018-04-17 20:45 | disposition short-term general hospital (02) ==
LOC: CLSP 10:21 → PCU 15:46
PROVIDERS: Family Provider Family Medicine; PCP Family Medicine; Referring Provider Internal Medicine Cardiovascular Disease; Visit Provider Internal Medicine Cardiovascular Disease
DX: I25.10 Atherosclerotic heart disease of native coronary artery without angina pectoris (principal); I10 Essential (primary) hypertension; E78.5 Hyperlipidemia, unspecified; Z87.19 Personal history of other diseases of the digestive system; Z95.5 Presence of coronary angioplasty implant and graft; Z79.82 Long term (current) use of aspirin; Z79.899 Other long term (current) drug therapy; Z87.891 Personal history of nicotine dependence
CPT/HCPCS: 36415; 80048; 84703; 85025; 93458; 99152; 99153; C1760; J7040; Q9967

== ENCOUNTER 2018-05-06 14:22 | Inpatient (IN) | payer OTHER, SELFPAY ==
[2018-04-17 15:46] VITALS: BMI 24.9
[2018-05-06] VITALS (8 sets, daily range): BP systolic 115–131; BP diastolic 78–118; PULSE 83–103; RESP 16–18; TEMP 36.8–37.1; O2SAT 95–96; BMI 23.4
--- NOTE | 2018-05-06 14:43 | EKG12_ITS ---
Test Reason : CHEST OTHER Blood Pressure : / mmHG Vent. Rate : 092 BPM Atrial Rate : 092 BPM P-R Int : 152 ms QRS Dur : 090 ms QT Int : 354 ms P-R-T Axes : 052 008 038 degrees QTc Int : 437 ms Normal sinus rhythm Possible Left atrial enlargement Nonspecific ST and T wave abnormality Abnormal ECG Confirmed by ANDRES LAFLEUR, MAGDALENA ([id number]), newspaper editor managing KIERSTEN ESCOBAR ([id number]) on 05/09/2018 2:13:35 PM Referred By: Anthony Bauer Confirmed By:MAGDALENA CAMPOS MD
--- NOTE | 2018-05-06 14:43 | ECHOL_ITS ---
Reason For Study: Chest Pain Procedure This was a limited 2D transthoracic echocardiogram. Limited views were obtained. The study was technically difficult. Exam performed portable in ED. Left Ventricle Left ventricular systolic function is normal. The estimated ejection fraction is 55 %. Post operative septal motion. Right Ventricle Normal systolic function. Atria Normal left atrium. Normal right atrium. Mitral Valve There is no mitral annular calcification. Normal mitral valve. Tricuspid Valve Normal tricuspid valve. Aortic Valve Trisinus/trileaflet aortic valve. Normal aortic valve. Pulmonic Valve The pulmonic valve is not well visualized. Pericardium/Pleural 2D echocardiographic images c/w areas of small located pericardial effusion (anterior & posterior) with an area potentially c/w an area of early RV diastolic collapse noted in an isolated parasternal view but not visualized in other views. Interpretation Summary Limited views were obtained. The study was technically difficult. Left ventricular systolic function is normal. The estimated ejection fraction is 55 %. Post operative septal motion. 2D echocardiographic images c/w areas of small located pericardial effusion (anterior & posterior) with an area potentially c/w an area of early RV diastolic collapse noted in an isolated parasternal view but not visualized in other views. Ordering Physician: Shiraz Westbrook Referring Physician: Kenzie Torrez Performed By: Shanna Lopez, RO, RVT
--- NOTE | 2018-05-06 14:48 | RAD_ITS ---
STUDY: X-RAY CHEST REASON FOR EXAM: Female, 48 years old. Chest pain. TECHNIQUE: Single AP portable view of the chest. COMPARISON: 01/11/2018. FINDINGS: Is a band of density in the left lower lung zone likely due to subsegmental atelectasis. The lungs are otherwise clear. There is questionable minimal blunting of the right costophrenic angle. Normal size heart. Normal mediastinum and parul. Normal visualized pulmonary arteries. Normal visualized aortic arch and descending thoracic aorta. Normal visualized thoracic spine. Normal visualized ribs, clavicles, and shoulders. There is no demonstrated abnormality of the visualized soft tissue structures of the upper abdomen. RAD/Chest 1 View (Portable) IMPRESSION: Atelectatic changes in the left lower lung zone. Questionable minimal right pleural effusion. Electronically Signed: Cody Heller MD at 15:42 EST Tel , Service support ,
[2018-05-06 14:56] LABS: Absolute Lymphocyte Count 0.79 X10^3/ul (0.83-4.51); Absolute Neutrophil Count 4.2 X10^3/uL (2.0-7.7); Basophil# 0.03 X10^3/uL; Basophil% 0.5 % (0-1); Eosinophil# 0.27 X10^3/uL; Eosinophils% 4.8 % (0-5); Hematocrit 40.8 % (37-47); Hemoglobin 14.2 g/dl (12.0-15.0); Lymphocyte # 0.79 X10^3/ul (4.0); Lymphocyte % 14.2 % (19-41); Mean Corp Hgb Conc 34.8 g/gl (32-36); Mean Corpuscular Hgb 33.8 pg (27.0-32.0); Mean Corpuscular Volume 97.1 fL (81-99); Mean Platelet Vol. 8.8 fl (6.2-12.0); Monocyte# 0.31 X10^3/uL; Monocyte% 5.6 % (0-10); Neutrophil # 4.17 X10^3/uL (2.7-7.7); Neutrophil % 74.7 % (47-70); POSITIVE COUNT NO; POSITIVE DIFFERENTIAL NO; POSITIVE MORPHOLOGY NO; Platelet Count 453 K/mm3 (150-450); RBC Distribution Width CV 12.3 % (11.6-14.6); RBC Distribution Width SD 43.2 fl (35.1-43.9); White Blood Count 5.6 K/mm3 (4.4-11.0)
[2018-05-06 15:02] LABS: Anion Gap 9 (5-15); BUN 8 mg/dL (7-18); BUN/Creat Ratio 9.4 RATIO (10-20); Calcium,Total 9.7 mg/dL (8.5-10.1); Chloride 104 mmol/L (98-107); Creatinine, Serum 0.85 mg/dL (0.55-1.02); EST Glomerular Filtration Rate 76 mL/min (>60); Est Glom Filt Rate - Afr Amer 92 mL/min (>60); Estimated Creatinine Clearance 61.08 ml/min; Glucose 120 mg/dL (74-106); Potassium 3.4 mmol/L (3.5-5.1); Sodium Level 139 mmol/L (136-145)
[2018-05-06] MEDS: Ketorolac 30 MG/ML Syringe IV (16:28)
--- NOTE | 2018-05-06 16:33 | NURSING ---
DR MALDONADO FOR DR ROCHE
--- NOTE | 2018-05-06 16:36 | ED.DCSUM_ITS ---
- ER Visit Summary Date of Service: 05/06/18 Chief Complaint: Chest pain History of Present Illness: The patient is a 48 F who presents with chest pain. Patient has had 4 days of pain. 5 days ago she had a single coronary artery bypass graft at [facility]. It was a left internal mammary artery graft. After her surgery she was diagnosed with pericarditis. She was treated with colchicine and Toradol. She was discharged yesterday with colchicine. She is taking it once a day. She continues to have pain and is hard to lay flat. Is better when leaning forward. She is also on Plavix, amiodarone and ask. She spoke with Dr. Pelaez who recommended she come in and get a stat echocardiogram. Physical Examination: Vital signs reviewed. HEENT exam unremarkable. Heart is regular rate and rhythm without murmurs. Lungs are clear to auscultation. She does have chest tenderness under the left breast. The incisions are clean dry and intact. Abdomen is soft and nontender. Extremities reveal no edema. Skin exam normal. Neurologic exam normal. Test Results: EKG is normal sinus rhythm with rate of 92. She does have some slight SC depression. Potassium 3.4. Glucose 120. Chest x-ray reveals a small right-sided effusion with atelectasis on the left Emergency Department Course and Treatment: Dr. Pelaez notified us of the patient's arrival. He recommended the labs with the stat echocardiogram. The echocardiogram per Dr. Mendoza showed a small effusion with some loculated areas. He evaluated the patient in the emergency department and still believes that this is likely pericarditis. She will be treated with Toradol. He recommended admission to the hospitalist for further evaluation and treatments. I discussed this with the hospitalist. Treatment Plan: [] Disposition: Admit Impression: Pericarditis This note was generated with [employer] dictation software. It may contain incorrect words, spelling, and punctuation that were not noted in review of the chart prior to signing ED Disposition - Plan for ED Patient: Chief Complaint: Chest Other Referrals: Kenzie Torrez DO [Primary Care Provider] -
--- NOTE | 2018-05-06 16:37 | NURSING ---
PCU PERICARDITIS, RECENT EBST CABG ALEKS
--- NOTE | 2018-05-06 16:55 | PCM.HP.STD ---
<Ernie Yip - Last Filed: 05/06/18 16:55> Problem List (1) Acute pericarditis Status: Acute (2) Ulcerative colitis Status: Chronic (3) Drug-induced lupus erythematosus Status: Chronic (4) History of coronary artery stent placement Status: Chronic Comment: PCI-JAMIE-Mid LAD w/ 2.25 x 38 Promus Synergy 12/19/17 History of Present Illness Date of Admission: 05/06/18 Chief Complaint: chest pounding The patient is a 48 year old F with a pmhx of CAD, ulcerative colitis in remission x15 years, and drug induced lupus, who presents to the ER with a sensation of pounding in her chest. This patient underwent stenting of the LAD in december, then had recurrent chest pain and was sent to [facility] for single vessel CABG, BEST to the LAD this week. After the surgery she developed acute pericarditis and was treated with toradol and colchicine. She was discharged on colchicine yesterday. She went home and felt worse. When she lays flat she has a severe pounding in her chest and she cannot sleep and becomes very restless. She also has some mild LH. She is fairly comfortably sitting upright in bed here. She was sent to the ER by Dr. Pelaez. Dr. Mendoza came and did an echo which showed some fluid and pericarditis, and recommended admission and treatment with toradol. She denies having any pain.[] Past Medical History Past Medical History (Chronic Problems): Chronic Problems (Last Updated 04/18/18 @ 19:35 by Fidelia Grier) Ulcerative colitis (Chronic) Drug-induced lupus erythematosus (Chronic) Hyperlipidemia (Chronic) History of coronary artery stent placement (Chronic 12/19/17) PCI-JAMIE-Mid LAD w/ 2.25 x 38 Promus Synergy 12/19/17 Atherosclerosis of coronary artery of [place] heart with angina pectoris (Chronic) PCI-JAMIE-Mid LAD w/ 2.25 x 38 Promus Synergy 12/19/17 Medical History: Medical History (Last Updated 04/18/18 @ 19:35 by Fidleia Grier) Hyperlipidemia (Chronic) E78.5 Atherosclerosis of coronary artery of [place] heart with angina pectoris (Chronic) I25.119 PCI-JAMIE-Mid LAD w/ 2.25 x 38 Promus Synergy 12/19/17 Drug-induced lupus erythematosus L93.2, T50.905A Ulcerative colitis K51.90 Elevated LFTs R94.5 Allergies omeprazole Allergy (Verified 05/06/18 14:26) lupus rash Oqbcqgw-Wim-Yvd Reductase Inhibitor Allergy (Verified 05/06/18 14:26) fever, abn liver function test Sulfa (Sulfonamide Antibiotics) Allergy (Verified 05/06/18 14:26) Other tramadol HCl [From [facility]] Adverse Reaction (Verified 05/06/18 14:26) Other Home Medications: Ambulatory Orders Medication Instructions Recorded aspirin 81 mg tablet,delayed 81 mg PO DAILY #90 tab 12/23/17 release azathioprine 50 mg tablet 100 mg PO QHS tab 03/24/18 metoprolol succinate ER 25 mg 25 mg PO DAILY tab 04/10/18 tablet,extended release 24 hr amlodipine 2.5 mg tablet 2.5 mg PO DAILY 04/14/18 Amiodarone HCl [Cordarone] 200 mg PO DAILY 05/06/18 Clopidogrel Bisulfate [Plavix] 75 mg PO DAILY 05/06/18 Colchicine 0.6 mg PO DAILY 05/06/18 Furosemide [Lasix] 20 mg PO DAILY 05/06/18 Potassium Chloride 20 meq PO PRN PRN 05/06/18 Rosuvastatin Calcium [Crestor] 5 mg PO QHS 05/06/18 Surgical History: Surgical History (Last Updated 04/17/18 @ 16:23 by Fidelia Grier) History of coronary artery stent placement (Resolved) Onset Date: 12/19/17 Z95.5 PCI-JAMIE-Mid LAD w/ 2.25 x 38 Promus Synergy 12/19/17 History of left heart catheterization Onset Date: 04/17/18 Z98.890 Hx of cholecystectomy Z90.49 Surgical History: cholecystectomy, coronary bypass surgery Psychiatric History: No pertinent psych hx [employer] 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 Lives: Alone Smoking Status: Never smoker Alcohol: Occasional Drugs: None - *Family History Maternal Family History: Family History (Last Reviewed 03/24/18 @ 15:04 by Bry Pelaez MD) Father Heart disease Mother Heart disease Other grandparents history of heart disease History Items: Heart Disease Paternal Family History: Family History (Last Reviewed 03/24/18 @ 15:04 by Bry Pelaez MD) Father Heart disease Mother Heart disease Other grandparents history of heart disease History Items: Heart Disease Review of Systems Constitutional: Denies: Chills, Fever, Weight Change HEENT: Denies: Head Aches, Sinus Congestion, Sinus Drainage Cardiovascular: Reports: Light Headedness, - - chest pounding. Denies: Chest Pain, Palpitations Respiratory: Denies: Cough, Shortness of breath at rest, Sputum production Gastrointestinal: Denies: Abdominal Pain, Nausea, Vomiting Genitourinary: Denies: Dysuria Musculoskeletal: Denies: Joint Pain, Joint Tenderness Skin: Denies: Rash, Wounds Neurological: Denies: Numbness, Tingling, Focal weakness Psychiatric: Denies: Anxiety, Depression, Homicidal Ideations, Suicidal Ideations Hematologic/ Lymphatic: Denies: Easy Bruising, Easy Bleeding VTE Information - Inpt Only VTE Present on Admission: No VTE Mechan Device Prophylaxis: None VTE Pharm Prophylaxis ordered?: Yes Patient Problems: Active and Suspected Problems (Last Updated 04/18/18 @ 19:35 by Fidelia Grier) Acute pericarditis (Acute) - Physical Exam General: Alert, Oriented x3, Cooperative HEENT: Atraumatic, PERRLA, EOMI, Normocephalic Neck: Supple, No JVD, Negative Carotid Bruits Lungs: Clear to auscultation, Normal air movement Cardiovascular: Regular rate, No murmurs Abdomen: Bowel Sounds Present, Soft, Non Tender Extremities: No edema, Capillary Refill Less than 3 Seconds Skin: No rashes, No breakdown Musculoskeletal: No Tenderness to Palpation of Joints or Extremities Neurological: Cranial nerves II-XII grossly intact Psych/Mental Status: Normal Affect, Appropriate, Alert and oriented to time, place, person, mood and affect Vital Signs Temp Pulse Resp BP Pulse Ox 98.6 F 88 18 131/118 H 96 05/06/18 14:24 05/06/18 16:00 05/06/18 16:00 05/06/18 16:00 05/06/18 16:00 Oxygen Delivery Method Room Air Weight: 124 lb Body Mass Index (BMI) 23.4 Laboratory Tests Past 24 Hrs 05/06/18 05/06/18 14:35 14:35 WBC 5.6 RBC 4.20 Hgb 14.2 Hct 40.8 MCV 97.1 MCH 33.8 H MCHC 34.8 RDW 12.3 RDW Differential 43.2 Plt Count 453 H MPV 8.8 Immature Gran % (Auto) 0.200 Neut % (Auto) 74.7 H Lymph % (Auto) 14.2 L [place] % (Auto) 5.6 Eos % (Auto) 4.8 Baso % (Auto) 0.5 Absolute Neuts (auto) 4.2 Absolute Lymphs (auto) 0.79 L Total Counted Not Reportable Sodium 139 Potassium 3.4 L Chloride 104 Carbon Dioxide 26.0 Anion Gap 9 BUN 8 Creatinine 0.85 Estim Creat Clear Calc 61.08 Est GFR (MDRD) Af Amer 92 Est GFR (MDRD) Non-Af 76 BUN/Creatinine Ratio 9.4 L Glucose 120 H Calcium 9.7 Assessment/Plan All Active Problems (Last Updated 04/18/18 @ 19:35 by Fidelia Grier) Acute pericarditis (Acute) 1. Acute recurrent pericarditis following recent CABG - consult to Cardiology. Bedside echo done showing fluid and pericarditis. She will be given toradol today, tomorrow start indomethacin 50 TID, colchicine 0.[address] Mendoza. will provide pepcid for GI ppx, allergic to PPI. Repeat EKG in AM, check troponin. CXR shows questionable minimal right pleural effusion and atelectasis. 2. CAD - this week she underwent CABG, BEST to LAD at [facility]. EKG without acute issue, check troponin. Continue crestor, toprol, aspirin, plavix. She is also on amiodarone and norvasc. 3. Hx drug induced lupus - this began after first stent, skin biopsy positive, has outpatient follow up with rheumatology 4. Hx UC - in remission x 15 years - continue azathioprine 5. Hypokalemia - replete. DVT ppx: lovenox This patient was seen by Ernie Yip PA-C under the supervision of Dr. Bauer. <Anthony Bauer - Last Filed: 05/06/18 17:27> History of Present Illness The patient is a 48 year old F [] Past Medical History Medical History: Medical History (Last Updated 04/18/18 @ 19:35 by Fidelia Grier) Hyperlipidemia (Chronic) E78.5 Atherosclerosis of coronary artery of [place] heart with angina pectoris (Chronic) I25.119 PCI-JAMIE-Mid LAD w/ 2.25 x 38 Promus Synergy 12/19/17 Drug-induced lupus erythematosus L93.2, T50.905A Ulcerative colitis K51.90 Elevated LFTs R94.5 Allergies omeprazole Allergy (Verified 05/06/18 14:26) lupus rash Zrknmxk-Fmn-Nlh Reductase Inhibitor Allergy (Verified 05/06/18 14:26) fever, abn liver function test Sulfa (Sulfonamide Antibiotics) Allergy (Verified 05/06/18 14:26) Other tramadol HCl [From [facility]] Adverse Reaction (Verified 05/06/18 14:26) Other Surgical History: Surgical History (Last Updated 04/17/18 @ 16:23 by Fidelia Grier) History of coronary artery stent placement (Resolved) Onset Date: 12/19/17 Z95.5 PCI-JAMIE-Mid LAD w/ 2.25 x 38 Promus Synergy 12/19/17 History of left heart catheterization Onset Date: 04/17/18 Z98.890 Hx of cholecystectomy Z90.49 - *Family History Maternal Family History: Family History (Last Reviewed 03/24/18 @ 15:04 by Bry Pelaez MD) Father Heart disease Mother Heart disease Other grandparents history of heart disease Paternal Family History: Family History (Last Reviewed 03/24/18 @ 15:04 by Bry Pelaez MD) Father Heart disease Mother Heart disease Other grandparents history of heart disease - Physical Exam Vital Signs Temp Pulse Resp BP Pulse Ox 98.6 F 88 18 131/118 H 96 05/06/18 14:24 05/06/18 16:00 05/06/18 16:00 05/06/18 16:00 05/06/18 16:00 Oxygen Delivery Method Room Air Weight: 124 lb Body Mass Index (BMI) 23.4 Laboratory Tests Past 24 Hrs 05/06/18 05/06/18 14:35 14:35 WBC 5.6 RBC 4.20 Hgb 14.2 Hct 40.8 MCV 97.1 MCH 33.8 H MCHC 34.8 RDW 12.3 RDW Differential 43.2 Plt Count 453 H MPV 8.8 Immature Gran % (Auto) 0.200 Neut % (Auto) 74.7 H Lymph % (Auto) 14.2 L [place] % (Auto) 5.6 Eos % (Auto) 4.8 Baso % (Auto) 0.5 Absolute Neuts (auto) 4.2 Absolute Lymphs (auto) 0.79 L Total Counted Not Reportable Sodium 139 Potassium 3.4 L Chloride 104 Carbon Dioxide 26.0 Anion Gap 9 BUN 8 Creatinine 0.85 Estim Creat Clear Calc 61.08 Est GFR (MDRD) Af Amer 92 Est GFR (MDRD) Non-Af 76 BUN/Creatinine Ratio 9.4 L Glucose 120 H Calcium 9.7 Assessment/Plan Hospitalist note: I am seeing this patient in conjunction with Ernie Yip. I independently seen and examined the patient. History and physical, laboratory data and imaging studies reviewed and I concur with the above admission treatment plan. Patient underwent single-vessel CABG few days ago and she was discharged from [facility] yesterday. Her presenting complaint is chest pain, described as sensation of pounding in her chest, mainly brought up when she takes a deep breath and she lays flat, associated with intermittent mild shortness of breath and without aggravating or relieving factors. She denies dizziness, lightheadedness, palpitation, syncope or presyncope. Before discharge from the [facility], she was started on colchicine for acute pericarditis but patient felt worse after she went home. Today, she was sent to ED by Dr. Pelaez and Dr. Mendoza performance 2D echocardiogram in the ED that revealed small pericardial effusion and recommended admission for treatment for pericarditis. - Physical Exam General: Alert, Oriented x3, Cooperative, No apparent distress. HEENT: Atraumatic, PERRLA, EOMI. Neck: Supple, No JVD, Negative Carotid Bruits, Trachea Midline, Thyroid Normal. Lungs: Clear to auscultation, Normal air movement, No rhonchi, No wheeze, No rales. Cardiovascular: Regular rate, Regular Rhythm, Normal S1, Normal S2, PMI Normal. Abdomen: Bowel Sounds Present, Soft, Non Tender, Non-Distended, No Hepato-splenomegaly. Extremities: No clubbing, No cyanosis, No edema Skin: No rashes, No breakdown Neurological: Neuro grossly intact Vital Signs are stable. Assessment and plan: #1 acute recurrent pericarditis/small pericardial effusion: With recent history of CABG. 2D echocardiogram done and reportedly revealed small pericardial effusion. EKG revealed normal sinus rhythm without evidence of acute ischemic changes or cardiac arrhythmias. Her vital signs are stable. Plan: Admit to PCU, troponin x1, IV fluids, OxyIR as needed, Tylenol as needed, IV Toradol, cardiology consult, repeat CBC and BMP tomorrow morning. #2 status post recent CABG: Single visit Was done few days ago at [facility]. EKG reviewed as above, unremarkable. Plan to continue aspirin, Plavix, statins and metoprolol. #3 other chronic medical problems: Stable, continue current medications as above. This note was generated with [employer] dictation software. It may contain incorrect words, spelling, and punctuation that were not noted in checking the note before signing. Code Visit Inpatient E&M: 22822 Init Hosp L3
--- NOTE | 2018-05-06 17:00 | HP.PCM_ITS ---
<Ernie Yip - Last Filed: 05/06/18 16:55> Problem List (1) Acute pericarditis Status: Acute (2) Ulcerative colitis Status: Chronic (3) Drug-induced lupus erythematosus Status: Chronic (4) History of coronary artery stent placement Status: Chronic Comment: PCI-JAMIE-Mid LAD w/ 2.25 x 38 [employer] 12/19/17 History of Present Illness Date of Admission: 05/06/18 Chief Complaint: chest pounding The patient is a 48 year old F with a pmhx of CAD, ulcerative colitis in [facility] [facility] on x15 years, and drug induced lupus, who presents to the ER with a sensation of pounding in her chest. This patient underwent stenting of the LAD in december, then had recurrent chest pain and was sent to [facility] for single vessel CABG, BEST to the LAD this week. After the surgery she developed acute pericarditis and was treated with toradol and colchicine. She was discharged on colchicine yesterday. She went home and felt worse. When she lays flat she has a severe pounding in her chest and she cannot sleep and becomes very restless. She also has some mild LH. She is fairly comfortably sitting upright in bed here. She was sent to the ER by Dr. Pelaez. Dr. Mendoza came and did an echo which showed some fluid and pericarditis, and recommended admission and treatment with toradol. She denies h aving any pain.[] Past Medical History Past Medical History (Chronic Problems): Chronic Problems (Last Updated 04/18/18 @ 19:35 by Fidelia Grier) Ulcerative colitis (Chronic) Drug-induced lupus erythematosus (Chronic) Hyperlipidemia (Chronic) History of coronary artery stent placement (Chronic 12/19/17) PCI-JAMIE-Mid LAD w/ 2.25 x 38 [employer] 12/19/17 Atherosclerosis of coronary artery of [place] heart with angina pectoris (Chronic) PCI-JAMIE-Mid LAD w/ 2.25 x 38 [employer] 12/19/17 Medical History: Medical History (Last Updated 04/18/18 @ 19:35 by Fidelia Grier) Hyperlipidemia (Chronic) E78.5 Atherosclerosis of coronary artery 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] Adverse Reaction (Verified 05/06/18 14:26) Other Home Medications: Ambulatory Orders Medication Instructions Recorded aspirin 81 mg tablet,delayed 81 mg PO DAILY #90 tab 12/23/17 release azathioprine 50 mg tablet 100 mg PO QHS tab 03/24/18 metoprolol succinate ER 25 mg 25 mg PO DAILY tab 04/10/18 tablet,extended release 24 hr amlodipine 2.5 mg tablet 2.5 mg PO DAILY 04/14/18 Amiodarone HCl [Cordarone] 200 mg PO DAILY 05/06/18 Clopidogrel Bisulfate [Plavix] 75 mg PO DAILY 05/06/18 Colchicine 0.6 mg PO DAILY 05/06/18 Furosemide [Lasix] 20 mg PO DAILY 05/06/18 Potassium Chloride 20 meq PO PRN PRN 05/06/18 Rosuvastatin Calcium [Crestor] 5 mg PO QHS 05/06/18 Surgical History: Surgical History (Last Updated 04/17/18 @ 16:23 by Fidelia Grier) History of coronary artery stent placement (Resolved) Onset Date: 12/19/17 Z95.5 PCI-JAMIE-Mid LAD w/ 2.25 x 38 Promus [employer] 12/19/17 History of left heart catheterization Onset Date: 04/17/18 Z98.890 Hx of cholecystectomy Z90.49 Surgical History: cholecystectomy, coronary bypass surgery Psychiatric History: No pertinent psych hx [employer] History: No pertinent [employer] history Lives: Alone Smoking Status: Never smoker Alcohol: Occasional Drugs: None - *Family History Maternal Family History: Family History (Last Reviewed 03/24/18 @ 15:04 by Bry Pelaez MD) Father Heart disease Mother Heart disease Other grandparents history of heart disease History Items: Heart Disease Paternal Family History: Family History (Last Reviewed 03/24/18 @ 15:04 by Bry Pelaez MD) Father Heart disease Mother Heart disease Other grandparents history of heart disease History Items: Heart Disease Review of Systems Constitutional: Denies: Chills, Fever, Weight Change HEENT: Denies: Head Aches, Sinus Congestion, Sinus Drainage Cardiovascular: Reports: Light Headedness, - - chest pounding. Denies: Chest Pain, Palpitations Respiratory: Denies: Cough, Shortness of breath at rest, Sputum production Gastrointestinal: Denies: Abdominal Pain, Nausea, Vomiting Genitourinary: Denies: Dysuria Musculoskeletal: Denies: Joint Pain, Joint Tenderness Skin: Denies: Rash, Wounds Neurological: Denies: Numbness, Tingling, Focal weakness Psychiatric: Denies: Anxiety, Depression, Homicidal Ideations, Suicidal Ideations Hematologic/ Lymphatic: Denies: Easy Bruising, Easy Bleeding VTE Information - Inpt Only VTE Present on Admission: No VTE Mechan Device Prophylaxis: None VTE Pharm Prophylaxis ordered?: Yes Patient Problems: Active and Suspected Problems (Last Updated 04/18/18 @ 19:35 by Fidelia Grier) Acute pericarditis (Acute) - Physical Exam General: Alert, Oriented x3, Cooperative HEENT: Atraumatic, PERRLA, EOMI, Normocephalic Neck: Supple, No JVD, Negative Carotid Bruits Lungs: Clear to auscultation, Normal air movement Cardiovascular: Regular rate, No murmurs Abdomen: Bowel Sounds Present, Soft, Non Tender Extremities: No edema, Capillary Refill Less than 3 Seconds Skin: No rashes, No breakdown Musculoskeletal: No Tenderness to Palpation of Joints or Extremities Neurological: Cranial nerves II-XII grossly intact Psych/Mental Status: Normal Affect, Appropriate, Alert and oriented to time, place, person, mood and affect Vital Signs Temp Pulse Resp BP Pulse Ox 98.6 F 88 18 131/118 H 96 05/06/18 14:24 05/06/18 16:00 05/06/18 16:00 05/06/18 16:00 05/06/18 16:00 Oxygen Delivery Method Room Air Weight: 124 lb Body Mass Index (BMI) 23.4 Laboratory Tests Past 24 Hrs 05/06/18 05/06/18 14:35 14:35 WBC 5.6 RBC 4.20 Hgb 14.2 Hct 40.8 MCV 97.1 MCH 33.8 H MCHC 34.8 RDW 12.3 RDW Differential 43.2 Plt Count 453 H MPV 8.8 Immature Gran % (Auto) 0.200 Neut % (Auto) 74.7 H Lymph % (Auto) 14.2 L [place] % (Auto) 5.6 Eos % (Auto) 4.8 Baso % (Auto) 0.5 Absolute Neuts (auto) 4.2 Absolute Lymphs (auto) 0.79 L Total Counted Not Reportable Sodium 139 Potassium 3.4 L Chloride 104 Carbon Dioxide 26.0 Anion Gap 9 BUN 8 Creatinine 0.85 Estim Creat Clear Calc 61.08 Est GFR (MDRD) Af Amer 92 Est GFR (MDRD) Non-Af 76 BUN/Creatinine Ratio 9.4 L Glucose 120 H Calcium 9.7 Assessment/Plan All Active Problems (Last Updated 04/18/18 @ 19:35 by Fidelia Grier) Acute pericarditis (Acute) 1. Acute recurrent pericarditis following recent CABG - consult to Cardiology. Bedside echo done showing fluid and pericarditis. She will be given toradol today, tomorrow start indomethacin 50 TID, colchicine 0.[address] Mendoza. will provide pepcid for GI ppx, allergic to PPI. Repeat EKG in AM, check troponin. CXR shows questionable minimal right pleural effusion and atelectasis. 2. CAD - this week she underwent CABG, BEST to LAD at [facility]. EKG without acute issue, check troponin. Continue crestor, toprol, aspirin, plavix. She is also on amiodarone and norvasc. 3. Hx drug induced lupus - this began after first stent, skin biopsy positive, has outpatient follow up with rheumatology 4. Hx UC - in remission x 15 years - continue azathioprine 5. Hypokalemia - replete. DVT ppx: lovenox This patient was seen by Ernie Yip PA-C under the supervision of Dr. Bauer. <Anthony Bauer - Last Filed: 05/06/18 17:27> History of Present Illness The patient is a 48 year old F [] Past Medical History Medical History: Medical History (Last Updated 04/18/18 @ 19:35 by Fidelia Grier) Hyperlipidemia (Chronic) E78.5 Atherosclerosis of coronary artery of [place] heart with angina pectoris (Chronic) I25.119 PCI-JAMIE-Mid LAD w/ 2.25 x 38 [employer] 12/19/17 Drug-induced lupus erythematosus L93.2, T50.905A Ulcerative colitis K51.90 Elevated LFTs R94.5 Allergies omeprazole Allergy (Verified 05/06/18 14:26) lupus rash Zluqtyv-Pve-Ekv Reductase Inhibitor Allergy (Verified 05/06/18 14:26) fever, abn liver function test Sulfa (Sulfonamide Antibiotics) Allergy (Verified 05/06/18 14:26) Other tramadol HCl [From [facility]] Adverse Reaction (Verified 05/06/18 14:26) Other Surgical History: Surgical History (Last Updated 04/17/18 @ 16:23 by Fidelia Grier) History of coronary artery stent placement (Resolved) Onset Date: 12/19/17 Z95.5 PCI-JAMIE-Mid LAD w/ 2.25 x 38 Promus [employer] 12/19/17 History of left heart catheterization Onset Date: 04/17/18 Z98.890 Hx of cholecystectomy Z90.49 - *Family History Maternal Family History: Family History (Last Reviewed 03/24/18 @ 15:04 by Bry Pelaez MD) Father Heart disease Mother Heart disease Other grandparents history of heart disease Paternal Family History: Family History (Last Reviewed 03/24/18 @ 15:04 by Bry Pelaez MD) Father Heart disease Mother Heart disease Other grandparents history of heart disease - Physical Exam Vital Signs Temp Pulse Resp BP Pulse Ox 98.6 F 88 18 131/118 H 96 05/06/18 14:24 05/06/18 16:00 05/06/18 16:00 05/06/18 16:00 05/06/18 16:00 Oxygen Delivery Method Room Air Weight: 124 lb Body Mass Index (BMI) 23.4 Laboratory Tests Past 24 Hrs 05/06/18 05/06/18 14:35 14:35 WBC 5.6 RBC 4.20 Hgb 14.2 Hct 40.8 MCV 97.1 MCH 33.8 H MCHC 34.8 RDW 12.3 RDW Differential 43.2 Plt Count 453 H MPV 8.8 Immature Gran % (Auto) 0.200 Neut % (Auto) 74.7 H Lymph % (Auto) 14.2 L [place] % (Auto) 5.6 Eos % (Auto) 4.8 Baso % (Auto) 0.5 Absolute Neuts (auto) 4.2 Absolute Lymphs (auto) 0.79 L Total Counted Not Reportable Sodium 139 Potassium 3.4 L Chloride 104 Carbon Dioxide 26.0 Anion Gap 9 BUN 8 Creatinine 0.85 Estim Creat Clear Calc 61.08 Est GFR (MDRD) Af Amer 92 Est GFR (MDRD) Non-Af 76 BUN/Creatinine Ratio 9.4 L Glucose 120 H Calcium 9.7 Assessment/Plan Hospitalist note: I am seeing this patient in conjunction with Ernie Yip. I independently seen and examined the patient. History and physical, laboratory data and imaging studies reviewed and I concur with the above admission treatment plan. Patient underwent single-vessel CABG few days ago and she was discharged from [facility] yesterday. Her presenting complaint is chest pain, described as sensation of pounding in her chest, mainly brought up when she takes a deep breath and she lays flat, associated with intermittent mild shortness of breath and without aggravating or relieving factors. She denies dizziness, lightheadedness, palpitation, syncope or presyncope. Before discharge from the [facility], she was started on colchicine for acute pericarditis but patient felt worse after she went home. Today, she was sent to ED by Dr. Pelaez and Dr. Mendoza performance 2D echocardiogram in the ED that revealed small pericardial effusion and recommended admission for treatment for pericarditis. - Physical Exam General: Alert, Oriented x3, Cooperative, No apparent distress. HEENT: Atraumatic, PERRLA, EOMI. Neck: Supple, No JVD, Negative Carotid Bruits, Trachea Midline, Thyroid Normal. Lungs: Clear to auscultation, Normal air movement, No rhonchi, No wheeze, No rales. Cardiovascular: Regular rate, Regular Rhythm, Normal S1, Normal S2, PMI Normal. Abdomen: Bowel Sounds Present, Soft, Non Tender, Non-Distended, No Hepato- splenomegaly. Extremities: No clubbing, No cyanosis, No edema Skin: No rashes, No breakdown Neurological: Neuro grossly intact Vital Signs are stable. Assessment and plan: #1 acute recurrent pericarditis/small pericardial effusion: With recent history of CABG. 2D echocardiogram done and reportedly revealed small pericardial effusion. EKG revealed normal sinus rhythm without evidence of acute ischemic changes or cardiac arrhythmias. Her vital signs are stable. Plan: Admit to PCU, troponin x1, IV fluids, OxyIR as needed, Tylenol as needed, IV Toradol, cardiology consult, repeat CBC and BMP tomorrow morning. #2 status post recent CABG: Single visit Was done few days ago at [facility]. EKG reviewed as above, unremarkable. Plan to continue aspirin, Plavix, statins and metoprolol. #3 other chronic medical problems: Stable, continue current medications as above. This note was generated with [employer] dictation software. It may contain incorrect words, spelling, and punctuation that were not noted in checking the note before signing. Code Visit Inpatient E&M: 56505 Init Hosp L3
--- NOTE | 2018-05-06 17:15 | PCM.CONS.C ---
Problem List (1) Acute pericarditis Status: Acute (2) CAD (coronary artery disease) Status: Chronic Qualifiers: Coronary Disease-Associated Artery/Lesion type: [place] artery (3) History of coronary artery stent placement Status: Chronic Comment: PCI-JAMIE-Mid LAD w/ 2.25 x 38 Promus Synergy 12/19/17 (4) S/P CABG x 1 Status: Chronic Comment: Thorascopic guided single vessel CABG with a BEST to LAD (5) Hyperlipidemia Status: Chronic (6) HTN (hypertension) Status: Chronic (7) Ulcerative colitis Status: Chronic Reason for Consult Date of Consultation: 05/06/18 Reason for Consultation: Postoperative pericarditis. CAD status post LAD PCI and thorascopic guided guided single vessel CABG with BEST to the LAD. Hypertension lipidemia. Hypertension History of Present Illness: The patient is a 48 year old White female with a past medical history of hyperlipidemia, hypertension, premature CAD, status post LAD PCI, status post thorascopic guided single vessel CABG with BEST to the LAD, who presents for evaluation of postoperative chest discomfort concerning for postoperative pericarditis. The patient has been undergoing cardiovascular evaluation and care under the direction of Bry Pelaez MD of the [facility]. She has had evaluation for concerns of angina pectoris. This is a both noninvasive and invasive evaluation. She also has undergone evaluation with a diagnostic cardiac catheterization procedure. On 12/19/2017 she had a cardiac catheterization procedure performed which demonstrated that the left ventricle to be normal with an LVEF of 60%, the left main coronary artery normal, the LAD did have mid 90% stenosis, the LCx has proximal 40% stenosis, and the RCA had no significant disease. She subsequently underwent PTCA/stent of the LAD with a 2.25 x38 Promus Synergy drug eluding stent. On 01/20/2018 she underwent transthoracic echocardiogram. The left ventricle was reported as normal with an LVEF of 35%. She had mild TR. Her estimated RV systolic pressure was 25 mmHg. However, based upon continued symptoms and concerns she subsequently underwent repeat diagnostic cardiac catheterization on 04/17/2912. At that time per the report the left main coronary was normal, the LAD had a report of an ostial cleft like 80% stenosis and mid LAD previously placed stent was patent, the LCx had proximal 40% stenosis, mid LCx had mild irregularities, the RCA had no significant disease. She was subsequently referred to [facility] where she underwent thorascopic guided single vessel CABG with a BEST to the LAD. The surgical report is unavailable at this time for review. She notes that in the postoperative time frame, based upon ongoing chest discomfort, she was diagnosed with postoperative pericarditis. She was treated initially with IV Toradol and stated she had significant symptomatic improvement. However once her IV Toradol dose was decreased and then discontinued and she is only receiving oral colchicine therapy she had recurrent symptoms. She was subsequently released home on oral colchicine therapy with the hope that her postoperative symptoms would decrease and she would have symptomatic improvement. However since being home she states that she has had continued chest discomfort which is positional and worse when lying back and better when leaning forward. She has had the sensation of the need to take a deep breath, however, she notes it is uncomfortable when she does so. She has had nausea and thus decreased appetite and oral intake. There have been no obvious emesis. She has denied classic orthopnea or PND or worsening peripheral pitting edema. There has been no near syncope or syncope. She has not noted any obvious palpitations. She states she has been sleeping poorly and is very tired and fatigued. She contacted her CT surgery group today. They advised her to take additional anti-inflammatory therapy with ibuprofen. She did and felt transiently better. However she continued with symptoms. She was advised to contact her primary tennis racket repairer for further evaluation. She did and was directed to the emergency department for further evaluation and care. In the emergency department she was evaluated with her laboratory studies. Her WBC was not elevated. She had an ECG which demonstrated sinus rhythm with MN elevation in AVR and MN depression in her other ECG leads as well as nonspecific ST and T-wave abnormality. She had a chest x-ray performed which demonstrated no acute cardiopulmonary process on preliminary inspection. She underwent a transthoracic echocardiogram. This was a technically challenging and limited view study. Her transthoracic echocardiogram demonstrated that the left ventricle to appear normal with LV systolic function and an LVEF 55% with postoperative septal wall motion. She did have echocardiographic images compatible with areas were small loculated pericardial effusion (anterior and posterior) with an area potentially compatible with an area of early RV diastolic collapse noted in an isolated parasternal view but not visualized in other views. Of note, in the emergency department, she was hypertensive and not hypotensive. She notes that overall her current symptoms are different from the symptoms she had that were related to her initial CAD process. She has had no acute symptoms of shortness of breath associated with tachycardia, tachypnea, hypotension, or hypoxemia. [] Past Medical History Allergies/Adverse Reactions: Allergies omeprazole Allergy (Verified 05/06/18 14:26) lupus rash Lqvefwc-Aes-Igs Reductase Inhibitor Allergy (Verified 05/06/18 14:26) fever, abn liver function test Sulfa (Sulfonamide Antibiotics) Allergy (Verified 05/06/18 14:26) Other tramadol HCl [From [facility]] Adverse Reaction (Verified 05/06/18 14:26) Other Home Medications: Ambulatory Orders Medication Instructions Recorded aspirin 81 mg tablet,delayed 81 mg PO DAILY #90 tab 12/23/17 release azathioprine 50 mg tablet 100 mg PO QHS tab 03/24/18 metoprolol succinate ER 25 mg 25 mg PO DAILY tab 04/10/18 tablet,extended release 24 hr amlodipine 2.5 mg tablet 2.5 mg PO DAILY 04/14/18 Furosemide [Lasix] 20 mg PO DAILY 05/06/18 RX: Amiodarone HCl [Cordarone] 200 mg PO DAILY 05/06/18 RX: Clopidogrel Bisulfate [Plavix] 75 mg PO DAILY 05/06/18 RX: Colchicine 0.6 mg PO DAILY 05/06/18 RX: Potassium Chloride 20 meq PO DAILY 05/06/18 Rosuvastatin Calcium [Crestor] 5 mg PO MOWEFR 05/06/18 Past Medical History (Chronic Problems): Chronic Problems (Last Updated 04/18/18 @ 19:35 by Fidelia Grier) Ulcerative colitis (Chronic) Drug-induced lupus erythematosus (Chronic) CAD (coronary artery disease) (Chronic) S/P CABG x 1 (Chronic) Thorascopic guided single vessel CABG with a BEST to LAD HTN (hypertension) (Chronic) Hyperlipidemia (Chronic) History of coronary artery stent placement (Chronic 12/19/17) PCI-JAMIE-Mid LAD w/ 2.25 x 38 Promus Synergy 12/19/17 Atherosclerosis of coronary artery of [place] heart with angina pectoris (Chronic) PCI-JAMIE-Mid LAD w/ 2.25 x 38 Promus Synergy 12/19/17 Surgical History: cholecystectomy, coronary bypass surgery Psychiatric History: No pertinent psych hx UROLOGY SURGEON History: No pertinent UROLOGY SURGEON history - *Family History Maternal Family History: Family History (Last Reviewed 03/24/18 @ 15:04 by Bry Pelaez MD) Father Heart disease Mother Heart disease Other grandparents history of heart disease History Items: Heart Disease Paternal Family History: Family History (Last Reviewed 03/24/18 @ 15:04 by Bry Pelaez MD) Father Heart disease Mother Heart disease Other grandparents history of heart disease History Items: Heart Disease Lives: Alone Smoking Status: Never smoker Tobacco Use: Non-smoker Alcohol: Occasional Drugs: None Review of Systems - Review of Systems General: Reports: Decreased Appetite. Denies: Fever, Fatigue, Night Sweats Cardiovascular: Reports: Chest Discomfort, Chest Discomfort at Rest. Denies: Shortness of Breath, Orthopnea, PND, Peripheral Edema, Palpitations, Lightheadedness, Dizziness, Near Syncope, Syncope Respiratory: Denies: Cough, Sputum Production, Hemoptysis Gastrointestinal: Reports: Nausea. Denies: Hematemesis, Hematochezia, Melena Genitourinary: Denies: Dysuria, Hematuria Skin: Denies: Rash Objective: Vital Signs Temp Pulse Resp BP Pulse Ox 98.6 F 88 18 131/118 H 96 05/06/18 14:24 05/06/18 16:00 05/06/18 16:00 05/06/18 16:00 05/06/18 16:00 Oxygen Delivery Method Room Air Weight: 124 lb Body Mass Index (BMI) 23.4 Cardiovascular: Pericardial Friction Rub - Soft pericardial friction rub: Left lower sternal border 05/06/18 14:35: WBC 5.6, RBC 4.20, Hgb 14.2, Hct 40.8, MCV 97.1, MCH 33.8 H, MCHC 34.8, RDW 12.3, RDW Differential 43.2, Plt Count 453 H, MPV 8.8, Immature Gran % (Auto) 0.200, Neut % (Auto) 74.7 H, Lymph % (Auto) 14.2 L, Banks % (Auto) 5.6, Eos % (Auto) 4.8, Baso % (Auto) 0.5, Absolute Neuts (auto) 4.2, Total Counted Not Reportable 05/06/18 14:35: Sodium 139, Potassium 3.4 L, Chloride 104, Carbon Dioxide 26.0, Anion Gap 9, BUN 8, Creatinine 0.85, Est GFR (MDRD) Af Amer 92, Est GFR (MDRD) Non-Af 76, BUN/Creatinine Ratio 9.4 L, Glucose 120 H, Calcium 9.7 Rhythm:Sinus rhythm EKG:As noted above ECHO:As noted above Cardiac Cath:As noted above PCI:As noted above CT Surgery:Unavailable at this time for review CXR:As noted above Assessment/Plan 1. Postoperative pericarditis The patient has a diagnosis of premature CAD. She has undergone both LAD PCI and more recently, less than 1 week ago, a thorascopic guided single vessel CABG with a BEST to the LAD. She has had postoperative chest discomfort which her CT surgeons, status post evaluation at [facility], was compatible with postoperative pericarditis. She was treated initially with IV corticosteroid therapy with IV Toradol while she was being placed on oral colchicine therapy and had initial improvement. However as she has been without nonsteroidal anti-inflammatory agents, despite her on colchicine therapy, she has had recurrence of her symptoms. Her history, examination, an ECG do demonstrate findings compatible with an underlying pericarditis. She also has a postoperative transthoracic echocardiogram, demonstrating the aforementioned findings, that could go along with her postoperative course. She has had no findings of an underlying acute coronary syndrome. Also her clinical course does not appear to suggest any obvious great vessel disease or thromboembolic disease at this time, although, she will need to be monitored for such events as she is a patient who has been recently hospitalized and undergone operative procedures. At the present time the patient is going to be placed in the hospital. She will continue to have cardiac rhythm monitoring. She should have ECG followup. She will also be considered for a followup transthoracic echocardiogram to monitor her underlying pericardial findings. In the interim she will be placed on medical management. This will include initial anti-inflammatory therapy with IV corticosteroid/IV Toradol. She can be transitioned into an oral anti-inflammatory agents such as indomethacin. During this time she will also continue her on colchicine therapy. She will also receive H2 antagonist to minimize the risk of gastric irritation. 2. CAD status post LAD PCI and thorascopic guided single vessel CABG with a BEST to the LAD At the present time she does not have symptoms similar to what she did prior to her LAD revascularization therapy. She has had no objective findings suggestive of an underlying postoperative acute coronary syndrome. She will continue to be monitored for any concerns. In meantime she will continue evaluation care as noted above for concerns of postoperative pericarditis. 3. Hyperlipidemia She will continue risk factor evaluation and care. This will include medical management with HMG-CoA reductase inhibitors. 4. Hypertension Her blood pressure is elevated in the emergency department. This may be exacerbated by her underlying discomfort/pain. She will continue to have her blood pressure monitored. She will continue medical therapy with adjustment as needed. Comment: The patient's case was discussed with the patient, her , the [facility] emergency department staff, and her primary tennis racket repairer. This note was generated using a voice recognition system and there may be incorrect words, spelling or punctuation that were not noted when reviewing the office note prior to saving.
--- NOTE | 2018-05-06 17:25 | CON.PCM_ITS ---
Problem List (1) Acute pericarditis Status: Acute (2) CAD (coronary artery disease) Status: Chronic Qualifiers: Coronary Disease-Associated Artery/Lesion type: [place] artery (3) History of coronary artery stent placement Status: Chronic Comment: PCI-JAMIE-Mid LAD w/ 2.25 x 38 Promus Synergy 12/19/17 (4) S/P CABG x 1 Status: Chronic Comment: Thorascopic guided single vessel CABG with a BEST to LAD (5) Hyperlipidemia Status: Chronic (6) HTN (hypertension) Status: Chronic (7) Ulcerative colitis Status: Chronic Reason for Consult Date of Consultation: 05/06/18 Reason for Consultation: Postoperative pericarditis. CAD status post LAD PCI and thorascopic guided guided single vessel CABG with BEST to the LAD. Hypertension lipidemia. Hypertension History of Present Illness: The patient is a 48 year old White female with a past medical history of hyperlipidemia, hypertension, premature CAD, status post LAD PCI, status post thorascopic guided single vessel CABG with BEST to the LAD, who presents for evaluation of postoperative chest discomfort concerning for postoperative pericarditis. The patient has been undergoing cardiovascular evaluation and care under the direction of Bry Pelaez MD of the [facility]. She has had evaluation for concerns of angina pectoris. This is a both noninvasive and invasive evaluation. She also has undergone evaluation with a diagnostic cardiac catheterization procedure. On 12/19/2017 she had a cardiac catheterization procedure performed which demonstrated that the left ventricle to be normal with an LVEF of 60%, the left main coronary artery normal, the LAD did have mid 90% stenosis, the LCx has proximal 40% stenosis, and the RCA had no significant disease. She subsequently underwent PTCA/stent of the LAD with a 2.25 x38 Promus Synergy drug eluding stent. On 01/20/2018 she underwent transthoracic echocardiogram. The left ventricle was reported as normal with an LVEF of 35%. She had mild TR. Her estimated RV systolic pressure was 25 mmHg. However, based upon continued symptoms and concerns she subsequently underwent repeat diagnostic cardiac catheterization on 04/17/2912. At that time per the report the left main coronary was normal, the LAD had a report of an ostial cleft like 80% stenosis and mid LAD previously placed stent was patent, the LCx had proximal 40% stenosis, mid LCx had mild irregularities, the RCA had no significant disease. She was subsequently referred to [facility] where she underwent thorascopic guided single vessel CABG with a BEST to the LAD. The surgical report is unavailable at this time for review. She notes that in the postoperative time frame, based upon ongoing chest discomfort, she was diagnosed with postoperative pericarditis. She was treated initially with IV Toradol and stated she had significant symptomatic improvement. However once her IV Toradol dose was decreased and then discontinued and she is only receiving oral colchicine therapy she had recurrent symptoms. She was subsequently released home on oral colchicine therapy with the hope that her postoperative symptoms would decrease and she would have symptomatic improvement. However since being home she states that she has had continued chest discomfort which is positional and worse when lying back and better when leaning forward. She has had the sensation of the need to take a deep breath, however, she notes it is uncomfortable when she does so. She has had nausea and thus decreased appetite and oral intake. There have been no obvious emesis. She has denied classic orthopnea or PND or worsening peripheral pitting edema. There has been no near syncope or syncope. She has not noted any obvious palpitations. She states she has been sleeping poorly and is very tired and fatigued. She contacted her CT surgery group today. They advised her to take additional anti-inflammatory therapy with ibuprofen. She did and felt transiently better. However she continued with symptoms. She was advised to contact her primary merchandise displayer for further evaluation. She did and was directed to the emergency department for further evaluation and care. In the emergency department she was evaluated with her laboratory studies. Her WBC was not elevated. She had an ECG which demonstrated sinus rhythm with ND elevation in AVR and ND depression in her other ECG leads as well as nonspecific ST and T-wave abnormality. She had a chest x-ray performed which demonstrated no acute cardiopulmonary process on preliminary inspection. She underwent a transthoracic echocardiogram. This was a technically challenging and limited view study. Her transthoracic echocardiogram demonstrated that the left ventricle to appear normal with LV systolic function and an LVEF 55% with postoperative septal wall motion. She did have echocardiographic images compatible with areas were small loculated pericardial effusion (anterior and posterior) with an area potentially compatible with an area of early RV diastolic collapse noted in an isolated parasternal view but not visualized in other views. Of note, in the emergency department, she was hypertensive and not hypotensive. She notes that overall her current symptoms are different from the symptoms she had that were related to her initial CAD process. She has had no acute symptoms of shortness of breath associated with tachycardia, tachypnea, hypotension, or hypoxemia. [] Past Medical History Allergies/Adverse Reactions: Allergies omeprazole Allergy (Verified 05/06/18 14:26) lupus rash Jhyxmko-[id number]-Vpg Reductase Inhibitor Allergy (Verified 05/06/18 14:26) fever, abn liver function test Sulfa (Sulfonamide Antibiotics) Allergy (Verified 05/06/18 14:26) Other tramadol HCl [From [facility]] Adverse Reaction (Verified 05/06/18 14:26) Other Home Medications: Ambulatory Orders Medication Instructions Recorded aspirin 81 mg tablet,delayed 81 mg PO DAILY #90 tab 12/23/17 release azathioprine 50 mg tablet 100 mg PO QHS tab 03/24/18 metoprolol succinate ER 25 mg 25 mg PO DAILY tab 04/10/18 tablet,extended release 24 hr amlodipine 2.5 mg tablet 2.5 mg PO DAILY 04/14/18 Furosemide [Lasix] 20 mg PO DAILY 05/06/18 RX: Amiodarone HCl [Cordarone] 200 mg PO DAILY 05/06/18 RX: Clopidogrel Bisulfate [Plavix] 75 mg PO DAILY 05/06/18 RX: Colchicine 0.6 mg PO DAILY 05/06/18 RX: Potassium Chloride 20 meq PO DAILY 05/06/18 Rosuvastatin Calcium [Crestor] 5 mg PO MOWEFR 05/06/18 Past Medical History (Chronic Problems): Chronic Problems (Last Updated 04/18/18 @ 19:35 by Fidelia Grier) Ulcerative colitis (Chronic) Drug-induced lupus erythematosus (Chronic) CAD (coronary artery disease) (Chronic) S/P CABG x 1 (Chronic) Thorascopic guided single vessel CABG with a BEST to LAD HTN (hypertension) (Chronic) Hyperlipidemia (Chronic) History of coronary artery stent placement (Chronic 12/19/17) PCI-JAMIE-Mid LAD w/ 2.25 x 38 Promus Synergy 12/19/17 Atherosclerosis of coronary artery of [place] heart with angina pectoris (Chronic) PCI-JAMIE-Mid LAD w/ 2.25 x 38 Promus Synergy 12/19/17 Surgical History: cholecystectomy, coronary bypass surgery Psychiatric History: No pertinent psych hx [employer] 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: No pertinent [employer] SERVICE MANAGER history - *Family History Maternal Family History: Family History (Last Reviewed 03/24/18 @ 15:04 by Bry Pelaez MD) Father Heart disease Mother Heart disease Other grandparents history of heart disease History Items: Heart Disease Paternal Family History: Family History (Last Reviewed 03/24/18 @ 15:04 by Bry Pelaez MD) Father Heart disease Mother Heart disease Other grandparents history of heart disease History Items: Heart Disease Lives: Alone Smoking Status: Never smoker Tobacco Use: Non-smoker Alcohol: Occasional Drugs: None Review of Systems - Review of Systems General: Reports: Decreased Appetite. Denies: Fever, Fatigue, Night Sweats Cardiovascular: Reports: Chest Discomfort, Chest Discomfort at Rest. Denies: Shortness of Breath, Orthopnea, PND, Peripheral Edema, Palpitations, Lightheadedness, Dizziness, Near Syncope, Syncope Respiratory: Denies: Cough, Sputum Production, Hemoptysis Gastrointestinal: Reports: Nausea. Denies: Hematemesis, Hematochezia, Melena Genitourinary: Denies: Dysuria, Hematuria Skin: Denies: Rash Objective: Vital Signs Temp Pulse Resp BP Pulse Ox 98.6 F 88 18 131/118 H 96 05/06/18 14:24 05/06/18 16:00 05/06/18 16:00 05/06/18 16:00 05/06/18 16:00 Oxygen Delivery Method Room Air Weight: 124 lb Body Mass Index (BMI) 23.4 Cardiovascular: Pericardial Friction Rub - Soft pericardial friction rub: Left lower sternal border 05/06/18 14:35: WBC 5.6, RBC 4.20, Hgb 14.2, Hct 40.8, MCV 97.1, MCH 33.8 H, MCHC 34.8, RDW 12.3, RDW Differential 43.2, Plt Count 453 H, MPV 8.8, Immature Gran % (Auto) 0.200, Neut % (Auto) 74.7 H, Lymph % (Auto) 14.2 L, [place] % (Auto) 5.6, Eos % (Auto) 4.8, Baso % (Auto) 0.5, Absolute Neuts (auto) 4.2, Total Counted Not Reportable 05/06/18 14:35: Sodium 139, Potassium 3.4 L, Chloride 104, Carbon Dioxide 26.0, Anion Gap 9, BUN 8, Creatinine 0.85, Est GFR (MDRD) Af Amer 92, Est GFR (MDRD) Non-Af 76, BUN/Creatinine Ratio 9.4 L, Glucose 120 H, Calcium 9.7 Rhythm:Sinus rhythm EKG:As noted above ECHO:As noted above Cardiac Cath:As noted above PCI:As noted above CT Surgery:Unavailable at this time for review CXR:As noted above Assessment/Plan 1. Postoperative pericarditis The patient has a diagnosis of premature CAD. She has undergone both LAD PCI and more recently, less than 1 week ago, a thorascopic guided single vessel CABG with a BEST to the LAD. She has had postoperative chest discomfort which her CT surgeons, status post evaluation at [facility], was compatible with postoperative pericarditis. She was treated initially with IV corticosteroid therapy with IV Toradol while she was being placed on oral colchicine therapy and had initial improvement. However as she has been without nonsteroidal anti-inflammatory agents, despite her on colchicine therapy, she has had recurrence of her symptoms. Her history, examination, an ECG do demonstrate findings compatible with an underlying pericarditis. She also has a postoperative transthoracic echocardiogr am, demonstrating the aforementioned findings, that could go along with her postoperative course. She has had no findings of an underlying acute coronary syndrome. Also her clinical course does not appear to suggest any obvious great vessel disease or thromboembolic disease at this time, although, she will need to be monitored for such events as she is a patient who has been recently hospitalized and undergone operative procedures. At the present time the patient is going to be placed in the hospital. She will continue to have cardiac rhythm monitoring. She should have ECG followup. She will also be considered for a followup transthoracic echocardiogram to monitor her underlying pericardial findings. In the interim she will be placed on medical management. This will include initial anti-inflammatory therapy with IV corticosteroid/IV Toradol. She can be transitioned into an oral anti-inflammatory agents such as indomethacin. During this time she will also continue her on colchicine therapy. She will also receive H2 antagonist to minimize the risk of gastric irritation. 2. CAD status post LAD PCI and thorascopic guided single vessel CABG with a BEST to the LAD At the present time she does not have symptoms similar to what she did prior to her LAD revascularization therapy. She has had no objective findings suggestive of an underlying postoperative acute coronary syndrome. She will continue to be monitored for any concerns. In meantime she will continue evaluation care as noted above for concerns of postoperative pericarditis. 3. Hyperlipidemia She will continue risk factor evaluation and care. This will include medical management with HMG-CoA reductase inhibitors. 4. Hypertension Her blood pressure is elevated in the emergency department. This may be exacer bated by her underlying discomfort/pain. She will continue to have her blood pressure monitored. She will continue medical therapy with adjustment as needed. Comment: The patient's case was discussed with the patient, her , the [facility] emergency department staff, and her primary merchandise displayer. This note was generated using a voice recognition system and there may be incorrect words, spelling or punctuation that were not noted when reviewing the office note prior to saving.
[2018-05-06 18:15] LABS: Erythrocyte Sedimentation Rate 67 mm/hr (0-20)
[2018-05-06 18:17] LABS: International Normalized Ratio 0.9; Prothrombin Time (Protime)PT. 12.4 SECONDS (11.7-14.9)
[2018-05-06] MEDS: 0.9% Normal Saline 1,000 ML 75 ML IV (18:50)
[2018-05-06] MEDS: Ondansetron 4 MG/2 ML Vial IV (20:43)
[2018-05-06] MEDS: Zolpidem Tartrate 5 MG Tablet PO (23:13)
[2018-05-06] MEDS: Famotidine 20 MG Tablet PO (23:13)
[2018-05-06] MEDS: azaTHIOprine 50 MG Tablet 100 MG PO (23:13)
[2018-05-07] VITALS (13 sets, daily range): BP systolic 100–115; BP diastolic 66–77; PULSE 76–95; RESP 16–18; TEMP 36.6–37.1; O2SAT 94–97
[2018-05-07] MEDS: Ketorolac 30 MG/ML Syringe IV ×4 (00:19→18:17)
--- NOTE | 2018-05-07 05:55 | EKG12_ITS ---
Test Reason : AM EKG Blood Pressure : / mmHG Vent. Rate : 076 BPM Atrial Rate : 076 BPM P-R Int : 164 ms QRS Dur : 090 ms QT Int : 394 ms P-R-T Axes : 049 005 034 degrees QTc Int : 443 ms Normal sinus rhythm Normal ECG Confirmed by CELINA LAFLEUR, COBY ([id number]), film editor supervisor KIERSTEN ESCOBAR ([id number] on 05/11/2018 8:34:27 AM Referred By: Anthony Bauer Confirmed By:COBY PATRICK MD
[2018-05-07 06:34] LABS: Absolute Lymphocyte Count 0.77 X10^3/ul (0.83-4.51); Absolute Neutrophil Count 4.1 X10^3/uL (2.0-7.7); Basophil# 0.03 X10^3/uL; Basophil% 0.5 % (0-1); Eosinophil# 0.31 X10^3/uL; Eosinophils% 5.4 % (0-5); Hematocrit 36.5 % (37-47); Hemoglobin 12.4 g/dl (12.0-15.0); Lymphocyte # 0.77 X10^3/ul (4.0); Lymphocyte % 13.3 % (19-41); Mean Corpuscular Hgb 33.2 pg (27.0-32.0); Mean Corpuscular Volume 97.9 fL (81-99); Mean Platelet Vol. 8.7 fl (6.2-12.0); Monocyte# 0.56 X10^3/uL; Monocyte% 9.7 % (0-10); Neutrophil # 4.09 X10^3/uL (2.7-7.7); Neutrophil % 70.9 % (47-70); Platelet Count 367 K/mm3 (150-450); RBC Distribution Width CV 12.4 % (11.6-14.6); RBC Distribution Width SD 42.5 fl (35.1-43.9); Red Blood Count 3.73 M/mm3 (4.2-5.4); White Blood Count 5.8 K/mm3 (4.4-11.0)
[2018-05-07 06:36] LABS: POSITIVE COUNT NO; POSITIVE DIFFERENTIAL NO; POSITIVE MORPHOLOGY NO
[2018-05-07 06:51] LABS: Anion Gap 9 (5-15); BUN 12 mg/dL (7-18); BUN/Creat Ratio 15.5 RATIO (10-20); Calcium,Total 8.8 mg/dL (8.5-10.1); Chloride 109 mmol/L (98-107); Creatinine, Serum 0.77 mg/dL (0.55-1.02); EST Glomerular Filtration Rate 85 mL/min (>60); Est Glom Filt Rate - Afr Amer 102 mL/min (>60); Estimated Creatinine Clearance 67.42 ml/min; Glucose 112 mg/dL (74-106); Potassium 4.2 mmol/L (3.5-5.1); Sodium Level 142 mmol/L (136-145)
[2018-05-07] MEDS: Ondansetron 4 MG/2 ML Vial IV (08:33)
[2018-05-07] MEDS: proMETHazine 25 MG/ML Syringe 12.5 MG IV (11:04)
[2018-05-07] MEDS: 0.9% Normal Saline 1,000 ML 50 ML IV (11:21)
[2018-05-07] MEDS: 0.9% Normal Saline 1,000 ML 75 ML IV (11:50)
--- NOTE | 2018-05-07 12:19 | PN.CARD_ITS ---
Subjectve: The patient states that she feels better with respect to her chest discomfort today. She is able to lie supine more comfortably. She has also able to take a deep breath easier. She continues to feel nauseated. She has had loose bowel movements. Objective: Vital Signs Temp Pulse Resp BP Pulse Ox 98.0 F 79 16 115/76 94 05/07/18 08:30 05/07/18 11:30 05/07/18 08:30 05/07/18 08:30 05/07/18 08:30 Oxygen Delivery Method Room Air Weight: 124 lb 1.6 oz Body Mass Index (BMI) 23.4 Intake and Output for Last 24 Hours 05/05/18 05/06/18 05/07/18 23:59 23:59 23:59 Intake Total 143.4 / 143.4 450 / 450 Balance 143.4 / 143.4 450 / 450 General: Awake, Alert, Oriented x 3, Cooperative, Ill Appearing HEENT: Atraumatic, Normocephalic, PERRL, EOMI, Sclera Non Icteric Oral: Moist Mucosa Neck: Supple, Good ROM, No JVD Lungs: Clear to auscultation Cardiovascular: Regular Rhythm, Normal S1, Normal S2 Vascular: No Carotid Bruits Abdomen: Bowel Sounds Present, Soft, Non Tender Extremities: No Cyanosis, No Clubbing, No edema Neurological: No Focal Motor or Sensory Deficit Psych/Mental Status: Appropriate 05/06/18 14:35: WBC 5.6, RBC 4.20, Hgb 14.2, Hct 40.8, MCV 97.1, MCH 33.8 H, MCHC 34.8, RDW 12.3, RDW Differential 43.2, Plt Count 453 H, MPV 8.8, Immature Gran % (Auto) 0.200, Neut % (Auto) 74.7 H, Lymph % (Auto) 14.2 L, [place] % (Auto) 5.6, Eos % (Auto) 4.8, Baso % (Auto) 0.5, Absolute Neuts (auto) 4.2, Total Counted Not Reportable 05/06/18 14:35: Sodium 139, Potassium 3.4 L, Chloride 104, Carbon Dioxide 26.0, Anion Gap 9, BUN 8, Creatinine 0.85, Est GFR (MDRD) Af Amer 92, Est GFR (MDRD) Non-Af 76, BUN/Creatinine Ratio 9.4 L, Glucose 120 H, Calcium 9.7 05/06/18 18:01: Troponin I < 0.015 05/06/18 18:01: PT 12.4, INR 0.9 05/07/18 06:15: Sodium 142, Potassium 4.2, Chloride 109 H, Carbon Dioxide 24.0, Anion Gap 9, BUN 12, Creatinine 0.77, Est GFR (MDRD) Af Amer 102, Est GFR (MDRD) Non-Af 85, BUN/Creatinine Ratio 15.5, Glucose 112 H, Calcium 8.8 05/07/18 06:15: WBC 5.8, RBC 3.73 L, Hgb 12.4, Hct 36.5 L, MCV 97.9, MCH 33.2 H, MCHC 34.0, RDW 12.4, RDW Differential 42.5, Plt Count 367, MPV 8.7, Immature Gran % (Auto) 0.200, Neut % (Auto) 70.9 H, Lymph % (Auto) 13.3 L, [place] % (Auto) 9.7, Eos % (Auto) 5.4 H, Baso % (Auto) 0.5, Absolute Neuts (auto) 4.1, Total Counted Not Reportable Rhythm:Sinus rhythm EKG:Sinus rhythm; the [place] elevation and AVR and otherwise diffuse P R depression; nonspecific ST and T-wave changes-less prominent than the previous evaluation Medical Necessity - Tobacco Use Smoking Status: Never smoker Tobacco Use: Non-smoker Assessment/Plan 1. Postoperative pericarditis At the present time she does appear to be symptomatically improved status post initiation of IV nonsteroidal anti-inflammatory agents with Toradol. This will be continued at this time. When the patient, from a gastrointestinal standpoint, is able to take p.o. medications, then an attempt can be made to change her IV nonsteroidal anti- inflammatory agent to an oral nonsteroidal anti-inflammatory agent such as indomethacin. In the interim she will also continue her age to antagonists. Her colchicine therapy as being placed on hold secondary to concerns as whether or not this as the etiology for her loose bowel movements. 2. CAD status post LAD PCI and thorascopic guided single vessel CABG with a BEST to the LAD At the present time she does not have symptoms similar to what she did prior to her LAD revascularization therapy. She has had no objective findings suggestive of an underlying postoperative acute coronary syndrome. She will continue to be monitored for any concerns. In meantime she will continue evaluation care as noted above for concerns of postoperative pericarditis. 3. Hyperlipidemia She will continue risk factor evaluation and care. This will include medical management with HMG-CoA reductase inhibitors. 4. Hypertension Her blood pressure is elevated in the emergency department. This may be exacerbated by her underlying discomfort/pain. 5. Nausea / Diarrhea The patient has had ongoing nausea. This could be related to many etiologies including her medications include amiodarone therapy. This is going to be placed on hold at this time. Her cardiac rate and rhythm will continue to be monitored. The patient states that prior to leaving [facility] she was treated with a combination of agents to assist with her malfunction including MiraLAX. She had also been placed on colchicine therapy. She did have 1 loose bowel movement at home. She has had recurrent loose bowel movements here. It is unclear whether this is related to a combination of her medications including her colchicine therapy. Thus her colchicine therapy is being placed on hold. The same time she was being evaluated for any obvious evidence of an infectious etiology that she may have contracted during her hospitalization such a C. difficile toxin. Overall she does appear to be symptomatically improved with respect to her chest discomfort. Hopefully once her gastrointestinal concerns calm down with respect to her nausea and loose bowel movements she will be able to take her oral medications more consistently. In the meantime she is receiving her nonsteroidal anti-inflammatory agent via and IV route and she is receiving IV fluids. If in the interim she cannot tolerate her other oral medications then they may have to be changed topical or intravenous as deemed appropriate. This note was generated using a voice recognition system and there may be incorrect words, spelling or punctuation that were not noted when reviewing the office note prior to saving.
[2018-05-07] MEDS: Aspirin E.C. 81 MG Tablet PO (12:43)
[2018-05-07] MEDS: Metoprolol(XL)Succ 25 MG Tablet PO (12:44)
[2018-05-07] MEDS: Famotidine 20 MG Tablet PO ×2 (12:44→23:15)
[2018-05-07] MEDS: amLODIPine 2.5 MG Tablet PO (12:44)
--- NOTE | 2018-05-07 13:00 | PCM.PROGNOTE ---
<Ernie Yip - Last Filed: 05/07/18 13:00> Patient Problems: Active and Suspected Problems (Last Updated 04/18/18 @ 19:35 by Fidelia Grier) Acute pericarditis (Acute) Subjective: Pt resting comfortably in bed. She has had significant relief of the chest heaviness that she has been experiencing. She was able to get some sleep, which she could not the night prior, and is also able to lay more flat today. She has however developed significant nausea, and has had watery diarrhea several times since admission with abdominal cramping. - Physical Exam General: Alert, Oriented x3, Cooperative HEENT: Atraumatic, PERRLA, EOMI, Normocephalic Neck: Supple, No JVD, Negative Carotid Bruits Lungs: Clear to auscultation, Normal air movement Cardiovascular: Regular rate, No murmurs Abdomen: Bowel Sounds Present, Soft, Non Tender Extremities: No edema, Capillary Refill Less than 3 Seconds Skin: No rashes, No breakdown Musculoskeletal: No Tenderness to Palpation of Joints or Extremities Neurological: Cranial nerves II-XII grossly intact Psych/Mental Status: Normal Affect, Appropriate Vital Signs Temp Pulse Resp BP Pulse Ox 98.0 F 79 16 115/76 94 05/07/18 08:30 05/07/18 12:44 05/07/18 08:30 05/07/18 08:30 05/07/18 08:30 Oxygen Delivery Method Room Air Weight: 124 lb 1.6 oz Body Mass Index (BMI) 23.4 Intake and Output for Last 24 Hours 05/05/18 05/06/18 05/07/18 23:59 23:59 23:59 Intake Total 143.4 / 143.4 1199 / 1199 Output Total 100 / 100 Balance 143.4 / 143.4 1099 / 1099 Laboratory Tests Past 24 Hrs 05/06/18 05/06/18 05/06/18 14:35 14:35 18:01 WBC 5.6 RBC 4.20 Hgb 14.2 Hct 40.8 MCV 97.1 MCH 33.8 H MCHC 34.8 RDW 12.3 RDW Differential 43.2 Plt Count 453 H MPV 8.8 Immature Gran % (Auto) 0.200 Neut % (Auto) 74.7 H Lymph % (Auto) 14.2 L Blackford % (Auto) 5.6 Eos % (Auto) 4.8 Baso % (Auto) 0.5 Absolute Neuts (auto) 4.2 Absolute Lymphs (auto) 0.79 L Total Counted Not Reportable ESR PT INR Sodium 139 Potassium 3.4 L Chloride 104 Carbon Dioxide 26.0 Anion Gap 9 BUN 8 Creatinine 0.85 Estim Creat Clear Calc 61.08 Est GFR (MDRD) Af Amer 92 Est GFR (MDRD) Non-Af 76 BUN/Creatinine Ratio 9.4 L Glucose 120 H Calcium 9.7 Troponin I C-React Prot Ext Range 14.80 H 05/06/18 05/06/18 05/06/18 18:01 18:01 18:01 WBC RBC Hgb Hct MCV MCH MCHC RDW RDW Differential Plt Count MPV Immature Gran % (Auto) Neut % (Auto) Lymph % (Auto) Blackford % (Auto) Eos % (Auto) Baso % (Auto) Absolute Neuts (auto) Absolute Lymphs (auto) Total Counted ESR 67 H PT 12.4 INR 0.9 Sodium Potassium Chloride Carbon Dioxide Anion Gap BUN Creatinine Estim Creat Clear Calc Est GFR (MDRD) Af Amer Est GFR (MDRD) Non-Af BUN/Creatinine Ratio Glucose Calcium Troponin I < 0.015 C-React Prot Ext Range 05/07/18 05/07/18 06:15 06:15 WBC 5.8 RBC 3.73 L Hgb 12.4 Hct 36.5 L MCV 97.9 MCH 33.2 H MCHC 34.0 RDW 12.4 RDW Differential 42.5 Plt Count 367 MPV 8.7 Immature Gran % (Auto) 0.200 Neut % (Auto) 70.9 H Lymph % (Auto) 13.3 L Blackford % (Auto) 9.7 Eos % (Auto) 5.4 H Baso % (Auto) 0.5 Absolute Neuts (auto) 4.1 Absolute Lymphs (auto) 0.77 L Total Counted Not Reportable ESR PT INR Sodium 142 Potassium 4.2 Chloride 109 H Carbon Dioxide 24.0 Anion Gap 9 BUN 12 Creatinine 0.77 Estim Creat Clear Calc 67.42 Est GFR (MDRD) Af Amer 102 Est GFR (MDRD) Non-Af 85 BUN/Creatinine Ratio 15.5 Glucose 112 H Calcium 8.8 Troponin I C-React Prot Ext Range Medical Necessity - Tobacco Use Smoking Status: Never smoker Tobacco Use: Non-smoker Assessment/Plan All Active Problems (Last Updated 04/18/18 @ 19:35 by Fidelia Grier) Acute pericarditis (Acute) 1. Acute recurrent pericarditis following recent CABG - consult to Cardiology. Bedside echo done showing fluid and pericarditis. Improving with toradol. Continue for now. DC colchicine with diarrhea. Repeat Echo in AM. May start indomethacin tomorrow. 2. CAD - this week she underwent CABG, BEST to LAD at [facility]. EKG without acute issue, check troponin. Continue crestor, toprol, aspirin, plavix. She is also on amiodarone and norvasc. 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 She is not sure which medication caused this. 4. Hx UC - in remission x 15 years - continue azathioprine 5. Hypokalemia - repleted. 6. Diarrhea - possibly medication side effect, however she did not have this at home while on colchicine. Check C diff, with recent hospital admission. DVT ppx: lovenox This patient was seen by Ernie Yip PA-C under the supervision of Dr. Ellis. <Yuan Ellis - Last Filed: 05/07/18 13:41> Subjective: No chest pain, no shortness of breath, but complaining of diarrhea. - Physical Exam General: Alert, Cooperative HEENT: Atraumatic, Normocephalic Neck: No Nodes, Thyroid Normal Size and Texture Lungs: Clear to auscultation, Normal air movement, No rhonchi, No wheeze Cardiovascular: No murmurs, - - distant HS. Abdomen: Bowel Sounds Present, Soft, Non Tender Extremities: No edema, No Calf Tenderness Skin: No rashes, No breakdown Psych/Mental Status: Normal Affect, Appropriate Vital Signs Temp Pulse Resp BP Pulse Ox 36.7 C 79 16 115/76 94 05/07/18 08:30 05/07/18 12:44 05/07/18 08:30 05/07/18 08:30 05/07/18 08:30 Oxygen Delivery Method Room Air Weight: 56.291 kg Body Mass Index (BMI) 23.4 Intake and Output for Last 24 Hours 05/05/18 05/06/18 05/07/18 23:59 23:59 23:59 Intake Total 143.4 / 143.4 1199 / 1199 Output Total 100 / 100 Balance 143.4 / 143.4 1099 / 1099 Laboratory Tests Past 24 Hrs 05/06/18 05/06/18 05/06/18 14:35 14:35 18:01 WBC 5.6 RBC 4.20 Hgb 14.2 Hct 40.8 MCV 97.1 MCH 33.8 H MCHC 34.8 RDW 12.3 RDW Differential 43.2 Plt Count 453 H MPV 8.8 Immature Gran % (Auto) 0.200 Neut % (Auto) 74.7 H Lymph % (Auto) 14.2 L Blackford % (Auto) 5.6 Eos % (Auto) 4.8 Baso % (Auto) 0.5 Absolute Neuts (auto) 4.2 Absolute Lymphs (auto) 0.79 L Total Counted Not Reportable ESR PT INR Sodium 139 Potassium 3.4 L Chloride 104 Carbon Dioxide 26.0 Anion Gap 9 BUN 8 Creatinine 0.85 Estim Creat Clear Calc 61.08 Est GFR (MDRD) Af Amer 92 Est GFR (MDRD) Non-Af 76 BUN/Creatinine Ratio 9.4 L Glucose 120 H Calcium 9.7 Troponin I C-React Prot Ext Range 14.80 H 05/06/18 05/06/18 05/06/18 18:01 18:01 18:01 WBC RBC Hgb Hct MCV MCH MCHC RDW RDW Differential Plt Count MPV Immature Gran % (Auto) Neut % (Auto) Lymph % (Auto) Blackford % (Auto) Eos % (Auto) Baso % (Auto) Absolute Neuts (auto) Absolute Lymphs (auto) Total Counted ESR 67 H PT 12.4 INR 0.9 Sodium Potassium Chloride Carbon Dioxide Anion Gap BUN Creatinine Estim Creat Clear Calc Est GFR (MDRD) Af Amer Est GFR (MDRD) Non-Af BUN/Creatinine Ratio Glucose Calcium Troponin I < 0.015 C-React Prot Ext Range 05/07/18 05/07/18 06:15 06:15 WBC 5.8 RBC 3.73 L Hgb 12.4 Hct 36.5 L MCV 97.9 MCH 33.2 H MCHC 34.0 RDW 12.4 RDW Differential 42.5 Plt Count 367 MPV 8.7 Immature Gran % (Auto) 0.200 Neut % (Auto) 70.9 H Lymph % (Auto) 13.3 L Blackford % (Auto) 9.7 Eos % (Auto) 5.4 H Baso % (Auto) 0.5 Absolute Neuts (auto) 4.1 Absolute Lymphs (auto) 0.77 L Total Counted Not Reportable ESR PT INR Sodium 142 Potassium 4.2 Chloride 109 H Carbon Dioxide 24.0 Anion Gap 9 BUN 12 Creatinine 0.77 Estim Creat Clear Calc 67.42 Est GFR (MDRD) Af Amer 102 Est GFR (MDRD) Non-Af 85 BUN/Creatinine Ratio 15.5 Glucose 112 H Calcium 8.8 Troponin I C-React Prot Ext Range Assessment/Plan Patient seen and examined independently. Data reviewed. I agree with the above note by the physician construction assistant. 1. Acute pericarditis Status post single-vessel CABG On Toradol Follow-up echocardiogram Cardiology following 2. Diarrhea Likely secondary to colchicine C. difficile ordered and pending Code Visit Inpatient E&M: 14867 Subs Hosp L2
[2018-05-07] MEDS: Clopidogrel Bisulfate 75 MG Tablet PO (18:15)
[2018-05-07] MEDS: Rosuvastatin Calcium 5 MG Tablet PO (23:14)
[2018-05-07] MEDS: Zolpidem Tartrate 5 MG Tablet PO (23:15)
[2018-05-07] MEDS: azaTHIOprine 50 MG Tablet 100 MG PO (23:15)
[2018-05-08] VITALS (12 sets, daily range): BP systolic 98–118; BP diastolic 64–74; PULSE 64–79; RESP 16–18; TEMP 36.6–36.8; O2SAT 96–98
[2018-05-08] MEDS: 0.9% Normal Saline 1,000 ML 75 ML IV ×2 (00:08→12:38)
[2018-05-08] MEDS: Ketorolac 30 MG/ML Syringe IV ×2 (00:10→05:11)
[2018-05-08 06:40] LABS: Anion Gap 9 (5-15); BUN 12 mg/dL (7-18); BUN/Creat Ratio 18.2 RATIO (10-20); Calcium,Total 8.3 mg/dL (8.5-10.1); Chloride 109 mmol/L (98-107); Creatinine, Serum 0.66 mg/dL (0.55-1.02); EST Glomerular Filtration Rate 102 mL/min (>60); Est Glom Filt Rate - Afr Amer 123 mL/min (>60); Estimated Creatinine Clearance 78.66 ml/min; Glucose 94 mg/dL (74-106); Potassium 3.7 mmol/L (3.5-5.1); Sodium Level 142 mmol/L (136-145)
--- NOTE | 2018-05-08 07:32 | PN.CARD_ITS ---
Subjectve: Patient seen and evaluated. Says that she is sleeping a little better now. Objective: Vital Signs Temp Pulse Resp BP Pulse Ox 98 F 72 16 102/64 96 05/08/18 05:00 05/08/18 06:55 05/08/18 05:00 05/08/18 05:00 05/08/18 05:00 Oxygen Delivery Method Room Air Weight: 124 lb 1.6 oz Body Mass Index (BMI) 23.4 Intake and Output for Last 24 Hours 05/06/18 05/07/18 05/08/18 23:59 23:59 23:59 Intake Total 143.4 / 143.4 2173 / 2173 1091 / 1091 Output Total 200 / 200 Balance 143.4 / 143.4 1972 1091 / 1091 General: Awake, Alert, Oriented x 3 HEENT: PERRL, EOMI, Sclera Non Icteric Neck: Supple, Good ROM, No Lymph Node Enlargement Lungs: Clear to auscultation Cardiovascular: Regular Rhythm, Normal S1, Normal S2, No Murmurs, No Rubs, No Gallops Vascular: No Carotid Bruits, Normal Femoral Pulses, Normal Radial Pulses, Normal Dorsalis Pedal Pulse, Normal Posterior Tibial Pulses Abdomen: Bowel Sounds Present, Soft, Non Tender, No HSM, No Organomegaly Extremities: No Cyanosis, No Clubbing, No edema Musculoskeletal: No Erythema Skin: No Rashes Lymphatic: No Lymph Node Enlargement Neurological: No Focal Motor or Sensory Deficit Psych/Mental Status: Appropriate 05/08/18 05:25: Sodium 142, Potassium 3.7, Chloride 109 H, Carbon Dioxide 24.0, Anion Gap 9, BUN 12, Creatinine 0.66, Est GFR (MDRD) Af Amer 123, Est GFR (MDRD) Non-Af 102, BUN/Creatinine Ratio 18.2, Glucose 94, Calcium 8.3 L Rhythm: EKG: ECHO: Stress Test: Cardiac Cath: PCI: CT Surgery: Holter monitor: EPS: PPM: CXR: Chest CT Scan: Medical Necessity - Tobacco Use Smoking Status: Never smoker Tobacco Use: Non-smoker Assessment/Plan 1. Postoperative pericarditis At the present time she does appear to be symptomatically improved status post initiation of IV nonsteroidal anti-inflammatory agents with Toradol. This will be discontinued at this time. * Will recommend starting oral indomethacin. * The colchicine will temporarily be held as she has had diarrhea from the above. We may be able to reduce it at a lower dose. 2. CAD status post LAD PCI and thorascopic guided single vessel CABG with a BEST to the LAD At the present time she does not have symptoms similar to what she did prior to her LAD revascularization therapy. She has had no objective findings suggestive of an underlying postoperative acute coronary syndrome. She will continue to be monitored for any concerns. In meantime she will continue evaluation care as noted above for concerns of postoperative pericarditis. 3. Hyperlipidemia She will continue risk factor evaluation and care. This will include medical management with HMG-CoA reductase inhibitors. 4. Hypertension Her blood pressure is elevated in the emergency department. This may be exacerbated by her underlying discomfort/pain. We will repeat echocardiogram today to assess the stability of her small pericardial effusion.
--- NOTE | 2018-05-08 08:00 | ECHOL_ITS ---
Reason For Study: Pericardial Effusion Procedure This was a limited 2D transthoracic echocardiogram. Exam performed portable in patient room. Left Ventricle Normal LV size. Left ventricular systolic function is normal. The estimated ejection fraction is 55 %. No regional wall motion abnormalities noted. Right Ventricle Normal RV size. Normal systolic function. Atria Normal left atrium. Normal right atrium. Mitral Valve Normal mitral valve. Tricuspid Valve Normal tricuspid valve. Pericardium/Pleural Trivial pericardial effusion. MMode/2D Measurements & Calculations LVIDd: 4.2 cm IVSd: 0.93 cm LVIDs: 3.0 cm LVPWd: 0.88 cm FS: 28.0 % Interpretation Summary Normal LV size. Left ventricular systolic function is normal. The estimated ejection fraction is 55 %. Trivial pericardial effusion. Compared to the previous the pericardial effusionis much less Ordering Physician: Yuan Ellis Referring Physician: Kenzie Torrez Performed By: Shanna Lopez RDCS, RVT
[2018-05-08] MEDS: Metoprolol(XL)Succ 25 MG Tablet PO (09:21)
[2018-05-08] MEDS: Clopidogrel Bisulfate 75 MG Tablet PO (09:21)
[2018-05-08] MEDS: Indomethacin 25 MG Capsule PO ×3 (09:21→19:18)
[2018-05-08] MEDS: Aspirin E.C. 81 MG Tablet PO (09:21)
[2018-05-08] MEDS: Famotidine 20 MG Tablet PO ×2 (09:21→21:44)
--- NOTE | 2018-05-08 10:35 | CASEMGMT ---
PEDRO LUIS ALDANA assessment: Face to Face with patient for initial transition planning/care coordination assessment. PEDRO LUIS ALDANA introduced self and role at [facility], pt voices understanding and consents to assessment at this time. Pt is lying in bed in no distress at this time. Pt is A/Ox4 at this time and answers all questions appropriately at this time. Pt had recent CABG x1 at [facility] earlier this month. Care providers, pharmacy, and demographics verified at this time. PCP: Shan Specialists: JUNIOR Khan; Sergio, surgeon at [facility] Preferred Pharmacy: [facility] retail pharm Insurance: [facility] Prescription Benefit: [facility] [employer] Living Will/HPOA: Pt states does not have LW/HPOA and declines info at this time. LNOK: Steve Reyes, Living Arrangements: Pt states lives with in 1 story home and states no concerns at home at this time. Pt is independent at home with ADL's. Transportation: Pt states normally drives self but is currently on restriction d/t recent surgery and states no transportation concerns at this time. DME/HHC: Pt states no current DME or need for any at this time. Pt states no hx of HHC or SNF in the past. Pt states no concerns with going home at time of discharge. 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 Pt states does not smoke but does drink ETOH occasionally. Pt staets no further questions/concerns/needs at this time. CM to follow for any further discharge planning/needs. Advised pt to ask for CM if any further questions/concerns/needs arise, voices understanding. Plan: [place] PEDRO LUIS ALDANA
--- NOTE | 2018-05-08 14:48 | PCM.PROGNOTE ---
Patient Problems: Active and Suspected Problems (Last Updated 04/18/18 @ 19:35 by Fidelia Grier) Acute pericarditis (Acute) Subjective: Pt c/o ongoing chest pounding when laying flat, feels about the same as yesterday. She does not that she can recline further than yesterday. No SOB. No palp. C/o poor appetite and c/o poor sleep. States she usually does not have sleep issues but is very anxious with the changes in her health. Sleeps about 4 hours with ambien and has vivid dreams. She would like to try something else, but keep ambien in case the other does not work - agreeable to vistaril. - Physical Exam General: Alert, Oriented x3, Cooperative HEENT: Atraumatic, PERRLA, EOMI, Normocephalic Neck: Supple, No JVD, Negative Carotid Bruits Lungs: Clear to auscultation, Normal air movement Cardiovascular: Regular rate, No murmurs Abdomen: Bowel Sounds Present, Soft, Non Tender Extremities: No edema, Capillary Refill Less than 3 Seconds Skin: No rashes, No breakdown Musculoskeletal: No Tenderness to Palpation of Joints or Extremities Neurological: Cranial nerves II-XII grossly intact Psych/Mental Status: Normal Affect, Appropriate, Alert and oriented to time, place, person, mood and affect Vital Signs Temp Pulse Resp BP Pulse Ox 98.2 F 78 16 98/66 96 05/08/18 09:20 05/08/18 10:58 05/08/18 09:20 05/08/18 09:20 05/08/18 09:20 Oxygen Delivery Method Room Air Weight: 124 lb 1.6 oz Body Mass Index (BMI) 23.4 Intake and Output for Last 24 Hours 05/06/18 05/07/18 05/08/18 23:59 23:59 23:59 Intake Total 143.4 / 143.4 2172 Output Total 200 / 200 Balance 143.4 / 143.4 1972 Microbiology Past 72 Hours 05/07/18 09:00 C. difficile DNA Amplification - Final Stool Laboratory Tests Past 24 Hrs 05/08/18 05:25 Sodium 142 Potassium 3.7 Chloride 109 H Carbon Dioxide 24.0 Anion Gap 9 BUN 12 Creatinine 0.66 Estim Creat Clear Calc 78.66 Est GFR (MDRD) Af Amer 123 Est GFR (MDRD) Non-Af 102 BUN/Creatinine Ratio 18.2 Glucose 94 Calcium 8.3 L Medical Necessity - Tobacco Use Smoking Status: Never smoker Tobacco Use: Non-smoker Assessment/Plan All Active Problems (Last Updated 04/18/18 @ 19:35 by Fidelia Grier) Acute pericarditis (Acute) 1. Acute recurrent pericarditis following recent CABG - consult to Cardiology. Bedside echo done showing fluid and pericarditis. Improving. Repeat echo. Indomethacin started today. CRP 14.8, ESR 67. 2. CAD - last week she underwent CABG, BEST to LAD at [facility]. EKG without acute issue, Continue crestor, toprol, aspirin, plavix. She is also on norvasc. Amiodarone DCd by cardiology. Troponin negative. 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 She is not sure which medication caused this. 4. Hx UC - in remission x 15 years - continue azathioprine 5. Hypokalemia - repleted. 6. Diarrhea - c diff neg. Resolved after DC of colchicine. 7. Insomnia - See subjective. ambien, try vistaril tonight. DVT ppx: early ambulation This patient was seen by Ernie Yip PA-C under the supervision of Dr. Ramirez
[2018-05-08] MEDS: traZODone 50 MG Tablet PO ×2 (21:43→22:55)
[2018-05-08] MEDS: Rosuvastatin Calcium 5 MG Tablet PO (21:44)
[2018-05-08] MEDS: amLODIPine 2.5 MG Tablet PO (21:44)
[2018-05-08] MEDS: azaTHIOprine 50 MG Tablet 100 MG PO (21:45)
[2018-05-09] VITALS (11 sets, daily range): BP systolic 83–120; BP diastolic 55–72; PULSE 71–84; RESP 15–18; TEMP 36.6–36.7; O2SAT 96–98
[2018-05-09] MEDS: Indomethacin 25 MG Capsule PO ×2 (06:09→12:16)
[2018-05-09 06:24] LABS: Absolute Lymphocyte Count 0.67 X10^3/ul (0.83-4.51); Absolute Neutrophil Count 3.2 X10^3/uL (2.0-7.7); Basophil# 0.02 X10^3/uL; Basophil% 0.4 % (0-1); Eosinophil# 0.25 X10^3/uL; Eosinophils% 5.2 % (0-5); Hematocrit 33.3 % (37-47); Hemoglobin 11.4 g/dl (12.0-15.0); Lymphocyte # 0.67 X10^3/ul (4.0); Mean Corp Hgb Conc 34.2 g/gl (32-36); Mean Corpuscular Hgb 32.8 pg (27.0-32.0); Mean Corpuscular Volume 95.7 fL (81-99); Mean Platelet Vol. 8.5 fl (6.2-12.0); Monocyte% 12.5 % (0-10); Neutrophil # 3.24 X10^3/uL (2.7-7.7); Neutrophil % 67.7 % (47-70); Platelet Count 308 K/mm3 (150-450); RBC Distribution Width CV 12.6 % (11.6-14.6); RBC Distribution Width SD 43.1 fl (35.1-43.9); Red Blood Count 3.48 M/mm3 (4.2-5.4); White Blood Count 4.8 K/mm3 (4.4-11.0)
[2018-05-09 06:25] LABS: POSITIVE COUNT NO; POSITIVE DIFFERENTIAL NO; POSITIVE MORPHOLOGY NO
[2018-05-09 06:35] LABS: Anion Gap 7 (5-15); BUN 9 mg/dL (7-18); BUN/Creat Ratio 11.8 RATIO (10-20); Calcium,Total 8.4 mg/dL (8.5-10.1); Chloride 110 mmol/L (98-107); Creatinine, Serum 0.76 mg/dL (0.55-1.02); EST Glomerular Filtration Rate 86 mL/min (>60); Est Glom Filt Rate - Afr Amer 104 mL/min (>60); Estimated Creatinine Clearance 68.31 ml/min; Glucose 106 mg/dL (74-106); Sodium Level 141 mmol/L (136-145)
--- NOTE | 2018-05-09 07:17 | PN.CARD_ITS ---
Subjectve: Patient seen and evaluated. Said her blood pressure was low yesterday and mildly symptomatic. She however slept better yesterday Objective: Vital Signs Temp Pulse Resp BP Pulse Ox 98.1 F 84 18 83/57 L 98 05/09/18 06:00 05/09/18 06:00 05/09/18 06:00 05/09/18 06:00 05/09/18 06:00 Oxygen Delivery Method Room Air Weight: 124 lb 1.6 oz Body Mass Index (BMI) 23.4 Intake and Output for Last 24 Hours 05/07/18 05/08/18 05/09/18 23:59 23:59 23:59 Intake Total 2173 / 2173 2594 / 2594 200 / 200 Output Total 200 / 200 Balance 1972 2594 / 2594 200 / 200 General: Awake, Alert, Oriented x 3 HEENT: PERRL, EOMI, Sclera Non Icteric Neck: Supple, Good ROM, No Lymph Node Enlargement Lungs: Clear to auscultation Cardiovascular: Regular Rhythm, Normal S1, Normal S2, No Murmurs, No Rubs, No Gallops Vascular: No Carotid Bruits, Normal Femoral Pulses, Normal Radial Pulses, Normal Dorsalis Pedal Pulse, Normal Posterior Tibial Pulses Abdomen: Bowel Sounds Present, Soft, Non Tender, No HSM, No Organomegaly Extremities: No Cyanosis, No Clubbing, No edema Neurological: No Focal Motor or Sensory Deficit Psych/Mental Status: Appropriate 05/09/18 06:00: WBC 4.8, RBC 3.48 L, Hgb 11.4 L, Hct 33.3 L, MCV 95.7, MCH 32.8 H, MCHC 34.2, RDW 12.6, RDW Differential 43.1, Plt Count 308, MPV 8.5, Immature Gran % (Auto) 0.200, Neut % (Auto) 67.7, Lymph % (Auto) 14.0 L, Millard % (Auto) 12.5 H, Eos % (Auto) 5.2 H, Baso % (Auto) 0.4, Absolute Neuts (auto) 3.2, Total Counted Not Reportable 05/09/18 06:00: Sodium 141, Potassium 4.0, Chloride 110 H, Carbon Dioxide 24.0, Anion Gap 7, BUN 9, Creatinine 0.76, Est GFR (MDRD) Af Amer 104, Est GFR (MDRD) Non-Af 86, BUN/Creatinine Ratio 11.8, Glucose 106, Calcium 8.4 L Rhythm: EKG: ECHO: Stress Test: Cardiac Cath: PCI: CT Surgery: Holter monitor: EPS: PPM: CXR: Chest CT Scan: Medical Necessity - Tobacco Use Smoking Status: Never smoker Tobacco Use: Non-smoker Assessment/Plan 1. Postoperative pericarditis At the present time she does appear to be symptomatically improved status post initiation of IV nonsteroidal anti-inflammatory agents with Toradol. * Will recommend continuing oral indomethacin. * The colchicine will temporarily be held as she has had diarrhea from the above. We may be able to reduce it at a lower dose. * Will suggest DC with indomethacin 25 mg 3 times a day for 3 weeks * Continue GI protection * Echocardiogram yesterday demonstrated preserved ejection fraction and near complete resolution of the small pericardial effusion. 2. CAD status post LAD PCI and thorascopic guided single vessel CABG with a BEST to the LAD At the present time she does not have symptoms similar to what she did prior to her LAD revascularization therapy. She has had no objective findings suggestive of an underlying postoperative acute coronary syndrome. 3. Hyperlipidemia She will continue risk factor evaluation and care. This will include medical management with HMG-CoA reductase inhibitors. 4. Hypertension Her blood pressure is under good control indeed may be a little low. Will resume Toprol-XL 25 mg at home together with the Norvasc 2.5 mg daily. She can be discharged later today for outpatient follow-up. Above discussed with the patient and nurse.
[2018-05-09] MEDS: Aspirin E.C. 81 MG Tablet PO (10:14)
[2018-05-09] MEDS: Clopidogrel Bisulfate 75 MG Tablet PO (10:14)
[2018-05-09] MEDS: Metoprolol(XL)Succ 25 MG Tablet PO (10:14)
[2018-05-09] MEDS: Famotidine 20 MG Tablet PO (10:15)
--- NOTE | 2018-05-09 11:16 | DCINST_ITS ---
- Discharge Diagnoses Current Active Problems: Current Active and Chronic Problems (Last Updated 04/18/18 @ 19:35 by Fidelia Grier) Ulcerative colitis (Chronic) Acute pericarditis (Acute) Drug-induced lupus erythematosus (Chronic) CAD (coronary artery disease) (Chronic) S/P CABG x 1 (Chronic) Thorascopic guided single vessel CABG with a BEST to LAD HTN (hypertension) (Chronic) You will use the following diet at home:: Cardiac Your food should be the consistency of: Regular Your liquids should be the consistency of: Regular/Thin Discharge Activity: Return to Normal Activity, - - As directed by cardiology Allergies/Adverse Reactions: Allergies omeprazole Allergy (Verified 05/06/18 14:26) lupus rash Axtyhls-Nbe-Lfc Reductase Inhibitor Allergy (Verified 05/06/18 14:26) fever, abn liver function test Sulfa (Sulfonamide Antibiotics) Allergy (Verified 05/06/18 14:26) Other tramadol HCl [From Ultra] Adverse Reaction (Verified 05/06/18 14:26) Other Medications to take at Discharge aspirin 81 mg tablet,delayed release 81 mg PO DAILY #90 tab 12/23/17 azathioprine 50 mg tablet 100 mg PO QHS tab 03/24/18 metoprolol succinate ER 25 mg tablet,extended release 24 hr 25 mg PO DAILY tab 04/10/18 amlodipine 2.5 mg tablet 2.5 mg PO QHS 04/14/18 Clopidogrel Bisulfate [Plavix] 75 mg PO DAILY 05/06/18 Rosuvastatin Calcium [Crestor] 5 mg PO MOWEFR 05/06/18 Famotidine [Pepcid] 20 mg PO BID #63 tablet 05/09/18 Indomethacin [Indocin] 25 mg PO TIDCM #63 capsule 05/09/18 traZODone [Desyrel] 50 mg PO QHS #30 tablet 05/09/18 The following prescriptions were given: Famotidine [Pepcid] 20 mg PO BID #63 tablet Indomethacin [Indocin] 25 mg PO TIDCM #63 capsule traZODone [Desyrel] 50 mg PO QHS #30 tablet Primary Care Physician: Kenzie Torrez DO [Primary Care Provider] - Please follow up with your Primary Care Physician in: 1-2 weeks Test Results: Test results from this visit will be discussed in further detail at your follow- up appointment, if applicable. Please Follow Up With: Bry Pelaez MD When: as directed by cardiology Proposed Discharge Date: 05/09/18
--- NOTE | 2018-05-09 14:34 | DS.PCM_ITS ---
Discharge Date and Diagnosis Date of Admission: 05/06/18 Date of Discharge: 05/09/18 - Primary Discharge Diagnosis Acute pericarditis, recurrent Recent CABG BEST to LAD History of drug-induced lupus History of ulcerative colitis Hypokalemia Diarrhea secondary to drug reaction-colchicine Insomnia - Secondary Discharge Diagnosis Chronic Problems (Last Updated 04/18/18 @ 19:35 by Fidelia Grier) Ulcerative colitis (Chronic) Drug-induced lupus erythematosus (Chronic) CAD (coronary artery disease) (Chronic) S/P CABG x 1 (Chronic) Thorascopic guided single vessel CABG with a BEST to LAD HTN (hypertension) (Chronic) Hyperlipidemia (Chronic) History of coronary artery stent placement (Chronic 12/19/17) PCI-JAMIE-Mid LAD w/ 2.25 x 38 Promus Synergy 12/19/17 Atherosclerosis of coronary artery of [place] heart with angina pectoris (Chronic) PCI-JAMIE-Mid LAD w/ 2.25 x 38 Promus Synergy 12/19/17 Hospital Course and Treatment Imaging Results: RAD/Chest 1 View (Portable) IMPRESSION: Atelectatic changes in the left lower lung zone. Questionable minimal right pleural effusion. Echo: Interpretation Summary Normal LV size. Left ventricular systolic function is normal. The estimated ejection fraction is 55 %. Trivial pericardial effusion. Compared to the previous the pericardial effusionis much less Consultation: Latanya/Kelly - cardiology Operations: None Procedures: 2-D Echocardiogram Summary of Care Provided: Hospital course: The patient is a 48 year old F with past medical history of CAD, hypertension, hyperlipidemia, drug-induced lupus, ulcerative colitis, who presented to the emergency room today after being discharged from [facility] after undergoing single- vessel CABG with BEST to the LAD earlier this week. While at [facility] postop she developed pericarditis and was placed on Toradol, colchicine, and discharged home on colchicine. She had worsening of chest discomfort when laying flat at home and presented to the emergency room. Bedside echocardiogram was performed by cardiology which demonstrated ongoing pericarditis. ESR and CRP were elevated. Troponin was negative. She was admitted to the PCU and placed on telemetry and started on IV Toradol. She did very well overnight. She is also been started on colchicine however the following day she developed significant diarrhea. She was recently admitted a C. difficile was checked which was negative. It was felt that the diarrhea was secondary to colchicine. This was discontinued. She continued to improve with the Toradol. She was able to tolerate lying flat. A repeat echo was performed which demonstrated improvement in her pericarditis. She was transitioned to oral indomethacin for discharge. He was advised that she take 3 weeks of indomethacin with concurrent GI prophylaxis with Pepcid 20 twice daily. She will need to follow-up with cardiology as an outpatient. She will also need to follow-up with her PCP in 1- 2 weeks. In addition to the above she also complained of insomnia throughout her stay. She trialed Ambien but did not like this at she could not get more than 4 hours of sleep and had vivid dreams. She was placed on trazodone with good results. She was discharged with a prescription for trazodone. This patient was seen by Ernie Yip PA-C under the supervision of Doctor Ashley. [] - Physical Exam General: Alert, Oriented x3, Cooperative HEENT: Atraumatic, PERRLA, EOMI, Normocephalic Neck: Supple, No JVD, Negative Carotid Bruits Lungs: Clear to auscultation, Normal air movement Cardiovascular: Regular rate, No murmurs Abdomen: Bowel Sounds Present, Soft, Non Tender Extremities: No edema, Capillary Refill Less than 3 Seconds Skin: No rashes, No breakdown Musculoskeletal: No Tenderness to Palpation of Joints or Extremities Neurological: Cranial nerves II-XII grossly intact Psych/Mental Status: Normal Affect, Appropriate, Alert and oriented to time, place, person, mood and affect Vital Signs Temp Pulse Resp BP Pulse Ox 98 F 80 15 103/72 98 05/09/18 12:13 05/09/18 12:13 05/09/18 12:13 05/09/18 12:13 05/09/18 12:13 Oxygen Delivery Method Room Air Weight: 124 lb 1.6 oz Body Mass Index (BMI) 23.4 Intake and Output for Last 24 Hours 05/07/18 05/08/18 05/09/18 23:59 23:59 23:59 Intake Total 2173 / 2173 2594 / 2594 1000 / 1000 Output Total 200 / 200 Balance 1972 / 1972 2594 / 2594 1000 / 1000 Microbiology Past 72 Hours 05/07/18 09:00 C. difficile DNA Amplification - Final Stool Laboratory Tests Past 24 Hrs 05/09/18 05/09/18 06:00 06:00 WBC 4.8 RBC 3.48 L Hgb 11.4 L Hct 33.3 L MCV 95.7 MCH 32.8 H MCHC 34.2 RDW 12.6 RDW Differential 43.1 Plt Count 308 MPV 8.5 Immature Gran % (Auto) 0.200 Neut % (Auto) 67.7 Lymph % (Auto) 14.0 L Brooke % (Auto) 12.5 H Eos % (Auto) 5.2 H Baso % (Auto) 0.4 Absolute Neuts (auto) 3.2 Absolute Lymphs (auto) 0.67 L Total Counted Not Reportable Sodium 141 Potassium 4.0 Chloride 110 H Carbon Dioxide 24.0 Anion Gap 7 BUN 9 Creatinine 0.76 Estim Creat Clear Calc 68.31 Est GFR (MDRD) Af Amer 104 Est GFR (MDRD) Non-Af 86 BUN/Creatinine Ratio 11.8 Glucose 106 Calcium 8.4 L Discharge Diet: Low fat/ Low Cholesterol, 2000 mg Sodium Diet Discharge Activity: Return to Normal Activity, - - As directed by cardiology Home Medications: Medications to take at Discharge aspirin 81 mg tablet,delayed release 81 mg PO DAILY #90 tab 12/23/17 azathioprine 50 mg tablet 100 mg PO QHS tab 03/24/18 metoprolol succinate ER 25 mg tablet,extended release 24 hr 25 mg PO DAILY tab 04/10/18 amlodipine 2.5 mg tablet 2.5 mg PO QHS 04/14/18 Clopidogrel Bisulfate [Plavix] 75 mg PO DAILY 05/06/18 Rosuvastatin Calcium [Crestor] 5 mg PO MOWEFR 05/06/18 Famotidine [Pepcid] 20 mg PO BID #63 tablet 05/09/18 Indomethacin [Indocin] 25 mg PO TIDCM #63 capsule 05/09/18 traZODone [Desyrel] 50 mg PO QHS #30 tablet 05/09/18 Following Prescrptions Were Given to Patient: Famotidine [Pepcid] 20 mg PO BID #63 tablet Indomethacin [Indocin] 25 mg PO TIDCM #63 capsule traZODone [Desyrel] 50 mg PO QHS #30 tablet Primary Care Physician: Kenzie Torrez DO [Primary Care Provider] - Please follow up with your Primary Care Physician in: 1-2 weeks Please Follow Up With: Bry Pelaez MD When: as directed by cardiology Disposition: Home Minutes spent on discharge:: 35 Patient Condition:: Stable Medical Necessity - Tobacco Use Smoking Status: Never smoker Tobacco Use: Non-smoker Meaningful Use Info Meaningful Use Diagnoses (Choose all that apply): None applicable
== END 2018-05-09 13:40 | disposition home or self-care (01) | DRG 315 ==
LOC: ED 16:49 → PCU 16:53
PROVIDERS: Physician Assistant; Admitting Provider Hospitalist; Emergency Provider Emergency Medicine; Family Provider Family Medicine; PCP Family Medicine; Referring Provider Hospitalist; Visit Provider Family Medicine
DX: I97.89 Other postprocedural complications and disorders of the circulatory system, not elsewhere classified (principal); I30.9 Acute pericarditis, unspecified; K51.90 Ulcerative colitis, unspecified, without complications; K52.1 Toxic gastroenteritis and colitis; I25.10 Atherosclerotic heart disease of native coronary artery without angina pectoris; E87.6 Hypokalemia; Z79.899 Other long term (current) drug therapy; Z95.5 Presence of coronary angioplasty implant and graft; G47.00 Insomnia, unspecified; T50.4X5A Adverse effect of drugs affecting uric acid metabolism, initial encounter
CPT/HCPCS: 36415; 71045; 80048; 84484; 85025; 85610; 85652; 86140; 87493; 93005; 93308; 99281; J7030; A4216; J2405

== ENCOUNTER → 2018-05-31 12:24 | Outpatient (CLI) | payer OTHER, SELFPAY ==
[2018-05-17 08:42] VITALS: BMI 24.1
[2018-05-31 14:18] LABS: Cholesterol 159 mg/dL (200); High Density Lipoprotein 44 mg/dL; Triglycerides 86 mg/dL; Very Low Density Lipoprotein 17 mg/dL (5-40)
[2018-05-31 14:25] LABS: AST(SGOT) 13 U/L (15-37); Alanine Aminotransfer ALT/SGPT 15 U/L (13-56); Alkaline Phosphatase 73 U/L (45-117); Bilirubin, Direct 0.16 mg/dL (0.00-0.30); Globulin 3.4 g/dL (2.2-4.2); Protein, Total 7.4 g/dL (6.4-8.2)
== END ==
PROVIDERS: Nurse Practitioner Family; Family Provider Family Medicine; PCP Family Medicine; Referring Provider Internal Medicine Cardiovascular Disease; Visit Provider Internal Medicine Cardiovascular Disease
DX: E78.5 Hyperlipidemia, unspecified (principal); I25.119 Atherosclerotic heart disease of native coronary artery with unspecified angina pectoris
CPT/HCPCS: 36415; 80061; 80076

== ENCOUNTER → 2018-06-13 11:56 | Outpatient (CLI) | payer OTHER, SELFPAY ==
[2018-05-17 08:42] VITALS: BMI 24.1
--- NOTE | 2018-06-13 12:01 | CR.HP_ITS ---
CR - History & Physical - General Arrival date:: 06/13/18 Arrival time:: 11:57 Date of Referral:: 06/08/18 Date of CR Evaluation:: 06/13/18 Referring Physician: Dr. Bry Pelaez Primary Diagnosis: CABG - History of Present Cardiac Event Onset Date: Enter Onset Date of cardiac illnesses in Comment field below Current stable Angina Pectoris:: No Acute Myocardial Infarction within 12 months:: No Coronary Artery Bypass Graft:: Yes - 05/02/2018 Heart valve replacement or repair:: No PTCA or coronary stenting:: Yes - 12/2017 Type of Symptoms:: Totally different than previous, nawing shoulder neck and upper back and fullness feeling in ear jaw and very fatigued. Almost described as a flue symptom type feeling. Interventions with present event:: left heart at [facility] found additional 80% blockage and sent to [facility] Were there any complications?: Bifercation of LAD and Circumflex formed lesion from stent. - Medications Home Medications: Ambulatory Orders Medication Instructions Recorded aspirin 81 mg tablet,delayed 81 mg PO DAILY #90 tab 12/23/17 release azathioprine 50 mg tablet 100 mg PO QHS tab 03/24/18 metoprolol succinate ER 25 mg 25 mg PO DAILY tab 04/10/18 tablet,extended release 24 hr amlodipine 2.5 mg tablet 2.5 mg PO QHS 04/14/18 Clopidogrel Bisulfate [Plavix] 75 mg PO DAILY 05/06/18 Rosuvastatin Calcium [Crestor] 5 mg PO MOWEFR 05/06/18 traZODone [Desyrel] 50 mg PO QHS #30 tab 05/09/18 - Allergies Allergies/Adverse Reactions: Allergies omeprazole Allergy (Verified 05/17/18 09:44) lupus rash Wgkowog-Hkw-Gha Reductase Inhibitor Allergy (Verified 05/17/18 09:44) fever, abn liver function test Sulfa (Sulfonamide Antibiotics) Allergy (Verified 05/17/18 09:44) Other tramadol HCl [From [facility]] Adverse Reaction (Verified 05/17/18 09:44) Other - Sleep Disorder Evaluation Hx of Sleep Apnea: No Do you snore loudly (louder than talking or can be heard through closed doors)?: No Do you often feel tired/ fatigued/ sleepy during daytime?: No Has anyone observed you stop breathing during sleep?: No History of Hypertension (for STOP score): Yes - on blood presure medication but no previous history of hypertension STOP Results: Negative Advanced Directives - Advanced Directives Power of Manager Speech: No Living Will: No Advance Directives Information Provided: Yes Advance Directives on File: No DNR Order?:: No - MOLST See MOLST form: No Past Medical History - Past Medical Illness Medical History: Past Medical History (Last Reviewed 05/17/18 @ 10:10 by Bry Pelaez MD) Pericardial effusion (Acute) I31.3 Acute pericarditis (Acute) I30.9 Drug-induced lupus erythematosus (Chronic) L93.2, T50.905A HTN (hypertension) (Chronic) I10 Hyperlipidemia (Chronic) E78.5 Atherosclerosis of coronary artery of [place] heart with angina pectoris (Chronic) I25.119 PCI-JAMIE-Mid LAD w/ 2.25 x 38 Promus Synergy 12/19/17 Drug-induced lupus erythematosus L93.2, T50.905A Ulcerative colitis K51.90 Elevated LFTs R94.5 - Past Surgical History Surgical History: Past Surgical History (Last Reviewed 05/17/18 @ 10:10 by Bry Pelaez MD) H/O coronary artery bypass surgery (Resolved) Onset Date: 05/02/18 Z95.1 Thorascopic guided single vessel CABG with a BEST to LAD 05/02/18 History of coronary artery stent placement (Chronic) Onset Date: 12/19/17 Z95.5 PCI-JAMIE-Mid LAD w/ 2.25 x 38 Promus Synergy 12/19/17 History of left heart catheterization Onset Date: 04/17/18 Z98.890 Hx of cholecystectomy Z90.49 Surgical History: cholecystectomy, coronary bypass surgery - Family History Summary Family History: Family History (Last Reviewed 05/17/18 @ 10:10 by Bry Pelaez MD) Father Heart disease Mother Heart disease Other grandparents history of heart disease Social History - Smoking History Smoking Status: Never smoker Hx Tobacco Use: No Hx Smoking Exposure: No - Alcohol Use Alcohol Usage: Yes - occasional 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 Hours worked per day:: 4 - 12 hours per week for right now Returned to work on:: 03/05/19 - Hobbies, Recreation, Social Activities Hobbies: Exercise - cross-fit, Other - garden schmidt outdoor work when it warm out. Recreational Activities: I am able to engage in all my recreational activities - can do them all but at a lower pace right now. Social Environment - Status Marital Status: - Current Living Arrangements Living Environment:: Family - Children How many children do you have?: 3 Do any of your children live nearby?: Yes - 2 at home - Safety Do you feel safe in your surroundings?: Yes - Assistance Do you need any assistance at home?: no Review of Systems - Review of Systems Hints: Right click = Denies (Slash). Left click = Reports ([place]) Review of Present Symptoms: Reports: Shortness of Breath with Exertion - sometimes, Wound Healing, Fatigue - somewhat, get tired easy with activity but feels as though she is getting stronger each day., Appetite - Normal, Appetite - Special Diet - low fat, low sugar, no salt diet, no dairy no red meat., Sleep - Normal. Denies: Shortness of Breath at Rest, Operative Discomfort, Dizziness/Lightheadedness, Heart Arrhythmia/Irregularities, Sexual Changes - Pain Is Patient Pain Free?: Yes Pain Location: none Risk Factor Assessment - Chief Complaint Chief Complaint: Patient is aprevious CR patient for PCI intervention who experienced another event and was found to have an additional occulsion in coronary artery, she was subsequently sent to [facility] for CABG and is recoverying wihtout any further incident. - Vital Signs Temperature: 98.7 F Respiratory Rate: 12 Blood Pressure: 108/68 Nailbeds:: pink - Pulse Pulse Rate: 76 Pulse Rhythm: Regular - Hypertension Blood Pressure Sitting - Right Arm: 108/68 - Blood Cholesterol/Lipids Total Cholesterol (mg/dL) Goal = less than 200 mg/dL: 159 HDL Cholesterol (mg/dL) Goal = less than 40 mg/dL: 44 LDL Cholesterol (mg/dL) Goal = less than 70 mg/dL: 98 Triglycerides (mg/dL) Goal = less than 150 mg/dL: 86 - Diabetes Nutrition Referral for Diabetes: No - Obesity Height: 5 ft 1 in Weight:: 128 lb Weight in Pounds: 128.0 lbs Weight Source: Estimated by Patient Body Mass Index (BMI): 24.1 Nutritional Referral for Obesity: No - Physical Inactivity Physical Inactivity: None - Risk Stratification Risk Guidelines: Lowest Risk: Risk Factor for Smoking, Risk Factor for Dyslipidemia, Risk Factor for Diabetes, Risk Factor for Obesity, Risk Factor for Hypertension, Risk Factor for Sedentary Lifestyle, Risk Factor for Depression - For Smoking Smoking Risk Guidelines: Smoking Low Risk: None or quit greater than 6 months ago. Smoking Moderate Risk: Smoker or quit 6 months or less ago. Smoking High Risk: Smoker - For Dyslipidemia Dyslipidemia Risk Guidelines: Low Risk: Moderate Risk: High Risk: 15-25% fat 25.1-29% fat >/= 30% fat. <7% sat fat 7-9% sat fat >9% sat fat. <150 mg chol 150-299 mg chol >/= 300 mg chol. LDL <100 LDL 100-129 LDL >/= 130. Chol/HDL ratio <5.0 Chol/HDL ratio 5.0-6.0 Chol/HDL ratio >6.0. Triglycerides <100 Triglycerides 100-149 Triglycerides >/= 150 - For Diabetes Mellitus Diabetes Risk Guidelines: Diabetes Low Risk: HgA1c <6.5% and/or FBG <120. Diabetes Moderate Risk: HgA1c 6.6-7.9% and/or FBG 120-180. Diabetes High Risk: HgA1c >/= 8% and/or FBG >180 - For Obesity/Overweight Obesity/Overweight Risk Guidelines: Obesity Low Risk: BMI <25.0. Obesity Moderate Risk: BMI 25-29.9. Obesity High Risk: BMI >/= 30.0 - For Hypertension Hypertension Risk Guidelines: Hypertension Low Risk: Systolic <120 and Diastolic <80. Hypertension Moderate Risk: Systolic 120-139 and Diastolic 80-89. Hypertension High Risk: Systolic >/= 140 and Diastolic >/= 90 - For Sedentary Lifestyle Sedentary Lifestyle Risk Guidelines: Sedentary Lifestyle Low Risk: >/= 1,500 kcal/week. Sedentary Lifestyle Moderate Risk: 700-1,499 kcal/week. Sedentary Lifestyle High Risk: < 700 kcal/week - For Depression Depression Risk Guidelines: Depression Low Risk: Not clinically depressed. Depression Moderate Risk: Mildly depressed. Depression High Risk: Clinically depressed - Family History Family History: Family History (Last Reviewed 05/17/18 @ 10:10 by Bry Pelaez MD) Father Heart disease Mother Heart disease Other grandparents history of heart disease Motivation - Motivation to Participate On a scale of 1 to 10, how prepared are you to commit to attending program?: 10 What do you see as barriers to successfully being able to complete the program?: no What do you see as the benefits of succesfully completing the program? In other words, what do you hope to get out of participating in the program?: getting strength back, knowing my heart is capable of doing increased activ Are there issues you are dealing with that will interfere with completing the program?: no Do you have a spouse or signficant other, family or friends who will help support you to complete the program?: yes
[2018-06-13 12:12] VITALS: BP 108/68; PULSE 76; RESP 12; TEMP 37.1; BMI 24.1
--- NOTE | 2018-06-13 12:18 | CR.ITP_ITS ---
General Information - General Information Admitting Diagnosis: CABG - Education/Goals Individual Counseling: Initial Assessment: Abnormal Cholesterol Levels, Family History of Heart Disease (under 65 years) Cardiac Rehabilitation Goals: 1. Maintain the individual as the primary focus of care. 2. To improve the patient's quality of life. 3. Identification of cardiac risk factors and provide cardiac risk factor management. 4. Enhance the psychosocial status of the patient. 5. Reconditioning enough to allow the patient to resume customary activities. 6. Control symptoms of cardiac disease Scale for measuring improvement of personal goals: Enter appropriate number in Comments. 2 = Unchanged. 3 = Slightly Better. 4 = Moderate Improvement. 5 = Met my Goal Personal Goals: Initial Assessment: Improve energy level, Participate in home exercise program, Get back to work, or to resume activities faster, Improve muscle strength and endurance Exercise - Initial Assessment - Visit Date of Eval: 06/13/18 - Stages of Change Stages of Change:: Action - Physician Prescribed Exercise Modalities: Treadmill, Rower - NO WEIGHT RESTRICITON, Airdyne, NuStep Frequency (days/week): 3x/week for 12 weeks [36 sessions] Intensity: 60-80% age predicted maximum heart rate reserve METs - Progression: 0.5-1.0 MET, RPE 11-14 WEEK: 3.5 Target Heart Rate:: 129-137 - Hypertension Do any of the following apply?: No, Medication Resting Blood Pressure:: 108/68 - Intervention Home Exercise/Activity Goal:: Moderate Exercise 30 min/day x 5 days/wk - Education Goals:: Warm-up, RPE RANDAL Scale, S/S, Safe Exercise, Self-Monitoring - Exercise Program Goals Exercise Program Goals: Aerobic Activity >30 min Nutrition - Initial Assessment - Program Goals Nutrition Program Goals: LDL <70. Total Cholesterol <200. HDL >45. Triglycerides <150. HgbA1C <7%. BMI <25 - Visit Date of Assessment:: 06/13/18 - Stages of Change Stages of Change:: Action - Lipids Total Cholesterol (mg/dL) Goal = less than 200 mg/dL: 159 HDL Cholesterol (mg/dL) Goal = less than 45 mg/dL: 44 LDL Cholesterol (mg/dL) Goal = less than 70 mg/dL: 98 Triglycerides (mg/dL) Goal = less than 150 mg/dL: 86 - Diabetes Diabetes:: No Do you monitor your blood sugar at home?: No - Weight Management Height: 5 ft 1 in Weight:: 128 lb Body Fat %:: 24 - Intervention Referral to dietitian:: No Referral to Diabetic Clinic:: No Will attend diet classes:: Yes - Education Gave educational materials for:: Healthy eating Tobacco - Initial Assessment - Program Goals Tobacco Program Goals: Complete smoking cessation. Attend education classes. Improve Knowledge Test score - Stage of Change Stages of Change:: Action - Learning Barriers Learning Barriers: Ready to Learn - Family Support Do you have family support?: Yes - Tobacco Use Tobacco Use: Non-smoker Do you use smokeless tobacco?: No - Intervention Smoking Cessation Referral:: No Individual Education/Counseling:: No Education Schedule Given:: Yes - Education Gave educational material for:: Coronary artery disease, Risk factors, Sexuality, Medical compliance, Cardiac A&P, Angina signs & symptoms Psychosocial - Initial Assess - Target Goals Target Goals: Assess presence or absence of depression. Using a valid screening tool, maximizes coping skills. Positive support system - Stages of Change Stages of Change:: Action - Psychosocial Test Tool Used:: HANDS Depression Questionnaire - Intervention PS - Interventions: Yes Attend Stress Management Classes, Yes Uses Stress Management Skills, No Referral to Mental Health, No Referral to [facility] Case Management, No Referral to Physician - Education Gave educational materials for:: Coping techniques, Signs & symptoms of depression, Stress management, Relaxation techniques - Patient/Program Goal Preventative Medication(s):: Aspirin, Clopidogrel, Statin/lipid - Assistive Devices Assistive Devices:: None Fall Risk Assessed:: Yes Patient Health Questionnaire Initial Assessment 1. Little interest or pleasure in doing things: Not at all 2. Feeling down, depressed, or hopeless: Not at all 3. Trouble falling or staying asleep, or sleeping too much: Several days 4. Feeling tired or having little energy: Several days 5. Poor appetite or overeating: Not at all 6. Feeling bad about yourself -- or that you are a failure or have let yourself or your family down: Not at all 7. Trouble concentrating on things, such as reading the newspaper or watching television: Not at all 8. Moving or speaking so slowly that other people could have noticed. Or the opposite - being so fidgety or restless that you have been moving around a lot more than usual: Not at all 9. Thoughts that you would be better off , or of hurting yourself in some way: Not at all How difficult have these problems made it for you to do your work, take care of things at home, or get along with other people?: Not difficult at all Total Score: 2 DYLAN-Q SV Test - Statements CAD is a disease of the arteries in the heart: False Examples of risk factors for heart disease: True Angina is chest pain or discomfort: True The benefits of resistance training include: True Eating more meat and dairy products: False Anti-platelet medications such as aspirin are important: True The only effective way to manage stress: False An exercise warm-up slowly increases heart rate: True Prepared, processed foods usually have high sodium: True Depression is common after a heart attack: True The statin medications lower cholesterol: True To control blood pressure, lower the amount of sodium: True If someone gets chest discomfort during walking: False Transfats are partially hydrogenated vegetable oils: True Sleep apnea that is not treated increases the risk: False To control cholesterol, one should become a vegetarian: True Someone knows if he/she is exercising at the right level: True Diabetes cannot be prevented with exercise & health eating: False Stress is a large risk for heart attack: True A diet that can help lower blood pressure is rich in: True - Total Score Total Correct Responses: 19 Self-Efficacy Initial Assessment We would like to know how confident you are in doing certain activities. Please select your confidence level for:: Select your confidence level for the following using the scale 1-10 where 1 is not at all confident and 10 is totally confident. Your score is the average of all 6 responses. Fatigue: How confident are you that you can keep the fatigue caused by your disease from interfering with the things you want to do? Select Number: 8 Physical Discomfort or Pain: How confident are you that you can keep the physical discomfort or pain of your disease from interfering with the things you want to do? Select Number: 8 Emotional Distress: How confident are you that you can keep the emotional distress caused by your disease from interfering with the things you want to do? Select Number: 9 Other Symptoms or Health Problems: How confident are you that you can keep other symptoms or health problems from interfering with the things you want to do? Select Number: 9 Different Tasks and Activities: How confident are you that you can do the different tasks and activities needed to manage your health condition so as to reduce your need to see a doctor? Select Number: 9 Medication: How confident are you that you can do things other than just taking medication to reduce how much your illness affects your everyday life? Select Number: 10 Total Score:: 8 Nutrition Survey - Nutrition Survey Instructions Scoring Instructions: Scoring is as follows: Yes = 1 points. No = 0 point. Patient score that is >/=12 is considered to be at potential nutritional risk and could benefit from a referral to a registered dietitian. - Nutrition Survey Initial Have you lost >10 lbs over the past 2 months without trying?: No Are you following a special diet at home for diabetes, low fat, or low salt?: Yes Are you interested in meeting with a dietitian for help understanding your diet?: No Do you eat less than 3 meals a day?: No Do you eat fatty meats (hawkins, sausage, ribs, etc), fried foods, desserts, large amounts of salad dressings, margarine, butter, or cheese most days?: No Do you have food allergies? [Enter types in comment field]: No Do you eat in restaurants more than 3 times a week?: No Do you season food with salt, seasoning salt, or garlic salt?: No Do you used canned, boxed, frozen meals, or soups, seasoning packets?: No Total Score:: 1
[2018-06-13 12:45] VITALS: BP 108/68
== END ==
PROVIDERS: Family Provider Family Medicine; PCP Family Medicine; Visit Provider Internal Medicine Cardiovascular Disease
DX: Z95.1 Presence of aortocoronary bypass graft (principal)

== ENCOUNTER 2018-07-05 08:00 | Outpatient (RCR) | payer OTHER, SELFPAY ==
[2018-06-13 12:12] VITALS: BMI 24.1
== END 2018-07-09 23:59 ==
LOC: CR 08:00
PROVIDERS: Family Provider Family Medicine; PCP Family Medicine; Referring Provider Internal Medicine Cardiovascular Disease; Visit Provider Internal Medicine Cardiovascular Disease
DX: I31.3 Pericardial effusion (noninflammatory) (principal); L93.2 Other local lupus erythematosus; T50.905A Adverse effect of unspecified drugs, medicaments and biological substances, initial encounter; I10 Essential (primary) hypertension; E78.5 Hyperlipidemia, unspecified; I25.119 Atherosclerotic heart disease of native coronary artery with unspecified angina pectoris; Z95.1 Presence of aortocoronary bypass graft; Z95.5 Presence of coronary angioplasty implant and graft
CPT/HCPCS: 93798

== ENCOUNTER 2018-07-24 08:00 | Outpatient (RCR) | payer OTHER, SELFPAY ==
[2018-06-13 12:12] VITALS: BMI 24.1
== END 2018-08-08 23:59 ==
LOC: CR 08:00
PROVIDERS: Family Provider Family Medicine; PCP Family Medicine; Referring Provider Internal Medicine Cardiovascular Disease; Visit Provider Internal Medicine Cardiovascular Disease
DX: I31.3 Pericardial effusion (noninflammatory) (principal); L93.2 Other local lupus erythematosus; T50.905A Adverse effect of unspecified drugs, medicaments and biological substances, initial encounter; I10 Essential (primary) hypertension; E78.5 Hyperlipidemia, unspecified; I25.119 Atherosclerotic heart disease of native coronary artery with unspecified angina pectoris; Z95.1 Presence of aortocoronary bypass graft; Z95.5 Presence of coronary angioplasty implant and graft
CPT/HCPCS: 93798

== ENCOUNTER → 2018-08-30 | Outpatient (CLI) | payer OTHER, SELFPAY ==
[2018-06-13 12:12] VITALS: BMI 24.1
[2018-08-30 08:30] LABS: AST(SGOT) 39 U/L (15-37); Alanine Aminotransfer ALT/SGPT 53 U/L (13-56); Albumin, Serum 3.7 g/dL (3.2-5.0); Alkaline Phosphatase 66 U/L (45-117); Bilirubin, Direct 0.14 mg/dL (0.00-0.30); Cholesterol 147 mg/dL (200); Globulin 3.2 g/dL (2.2-4.2); High Density Lipoprotein 53 mg/dL; Protein, Total 6.9 g/dL (6.4-8.2); Triglycerides 86 mg/dL; Very Low Density Lipoprotein 17 mg/dL (5-40)
== END | disposition home or self-care (01) ==
LOC: LAB 07:15
PROVIDERS: Family Provider Family Medicine; PCP Family Medicine; Referring Provider Internal Medicine Cardiovascular Disease; Visit Provider Internal Medicine Cardiovascular Disease
DX: E78.5 Hyperlipidemia, unspecified (principal)
CPT/HCPCS: 36415; 80061; 80076

== ENCOUNTER → 2018-10-31 | Outpatient (CLI) | payer OTHER, SELFPAY ==
[2018-10-24 16:12] VITALS: BMI 24.1
--- NOTE | 2018-10-31 14:14 | US_ITS ---
STUDY: ULTRASOUND OF THE FEMALE PELVIS - COMPLETE REASON FOR EXAM: Female, 48 years old. Abnormal bleeding, IUD removed last week LMP: TECHNIQUE: Transabdominal and Transvaginal TECHNICAL QUALITY: Adequate. COMPARISON: CT 01/11/2018 FINDINGS: The uterus is retroverted and is in a midline position. The uterus measures 9.4 x 7.2 x 6.4 cm. There is a Nabothian cyst of the cervix. The endometrium measures 8 mm in thickness, and is heterogeneous (striated). An ovoid hyperechoic endometrial mass is present measuring 1.7 x 1.2 x 0.8 cm. Differential includes blood clot, polyp, and pedunculated fibroid. A low echogenicity lesion is present in the posterior myometrial wall measuring 19 x 14 x 12 mm, likely a fibroid. The myometrium is diffusely heterogeneous containing multiple small cysts and nodules. I.U.D. - The patient does not have an I.U.D. The right ovary is visualized. The right ovary measures 2.7 x 2.3 x 1.5 cm. There is no right ovarian cyst or ovarian mass. There is no visualized right adnexal mass or complex lesion. There is normal arterial and normal venous vascularity. The left ovary is visualized. The left ovary measures 3.0 x 2.8 x 1.5 cm. There is no left ovarian cyst or ovarian mass. There is no visualized left adnexal mass or complex lesion. There is normal arterial and normal venous vascularity. There is no fluid in the cul-de-sac. The pre void volume of the bladder was 401.63 ml. Polycystic ovary disease: No. US/Pelvic (Non ) IMPRESSION: An ovoid hyperechoic endometrial mass is present measuring 1.7 x 1.2 x 0.8 cm. Differential includes blood clot, polyp, and pedunculated fibroid. A low echogenicity lesion is present in the posterior myometrial wall measuring 19 x 14 x 12 mm, likely a fibroid. The myometrium is diffusely heterogeneous containing multiple small cysts and nodules. This could be related to adenomyosis. Consider MRI correlation if clinically indicated. Electronically Signed: Mateusz Ibrahim MD at 17:10 EDT Tel , Service support ,
--- NOTE | 2018-10-31 14:14 | US_ITS ---
STUDY: ULTRASOUND OF THE FEMALE PELVIS - COMPLETE REASON FOR EXAM: Female, 48 years old. Abnormal bleeding, IUD removed last week LMP: TECHNIQUE: Transabdominal and Transvaginal TECHNICAL QUALITY: Adequate. COMPARISON: CT 01/11/2018 FINDINGS: The uterus is retroverted and is in a midline position. The uterus measures 9.4 x 7.2 x 6.4 cm. There is a Nabothian cyst of the cervix. The endometrium measures 8 mm in thickness, and is heterogeneous (striated). An ovoid hyperechoic endometrial mass is present measuring 1.7 x 1.2 x 0.8 cm. Differential includes blood clot, polyp, and pedunculated fibroid. A low echogenicity lesion is present in the posterior myometrial wall measuring 19 x 14 x 12 mm, likely a fibroid. The myometrium is diffusely heterogeneous containing multiple small cysts and nodules. I.U.D. - The patient does not have an I.U.D. The right ovary is visualized. The right ovary measures 2.7 x 2.3 x 1.5 cm. There is no right ovarian cyst or ovarian mass. There is no visualized right adnexal mass or complex lesion. There is normal arterial and normal venous vascularity. The left ovary is visualized. The left ovary measures 3.0 x 2.8 x 1.5 cm. There is no left ovarian cyst or ovarian mass. There is no visualized left adnexal mass or complex lesion. There is normal arterial and normal venous vascularity. There is no fluid in the cul-de-sac. The pre void volume of the bladder was 401.63 ml. Polycystic ovary disease: No. US/Transvaginal Non- IMPRESSION: An ovoid hyperechoic endometrial mass is present measuring 1.7 x 1.2 x 0.8 cm. Differential includes blood clot, polyp, and pedunculated fibroid. A low echogenicity lesion is present in the posterior myometrial wall measuring 19 x 14 x 12 mm, likely a fibroid. The myometrium is diffusely heterogeneous containing multiple small cysts and nodules. This could be related to adenomyosis. Consider MRI correlation if clinically indicated. Electronically Signed: Mateusz Ibrahim MD at 17:10 EDT Tel , Service support ,
== END | disposition home or self-care (01) ==
LOC: US 14:13
PROVIDERS: Family Provider Family Medicine; PCP Family Medicine; Referring Provider Obstetrics & Gynecology; Visit Provider Obstetrics & Gynecology
DX: N92.0 Excessive and frequent menstruation with regular cycle (principal)
CPT/HCPCS: 76830; 76856; 93976

== ENCOUNTER 2018-11-30 09:00 | Day surgery (SDC) | payer OTHER, SELFPAY ==
[2018-10-24 16:12] VITALS: BMI 24.1
[2018-11-21 13:29] VITALS: BMI 24.1
[2018-11-28 09:03] LABS: Hematocrit 38.9 % (37-47); Hemoglobin 12.9 g/dL (12.0-15.0); Mean Corp Hgb Conc 33.2 g/dL (32-36); Mean Corpuscular Volume 99.5 fL (81-99); Platelet Count 309 K/mm3 (150-450); RBC Distribution Width CV 12.5 % (11.6-14.6); RBC Distribution Width SD 45.7 fl (35.1-43.9); Red Blood Count 3.91 M/mm3 (4.2-5.4)
[2018-11-30] VITALS (7 sets, daily range): BP systolic 105–121; BP diastolic 73–86; PULSE 60–98; RESP 16–18; TEMP 36.4–36.9; O2SAT 98–100; BMI 23.6
--- NOTE | 2018-11-30 06:18 | PCM.HPOB.BLA ---
- Problem List (1) Adenomyosis Status: Acute Comment: plan iud after symphion (2) Lesion of endometrium Status: Acute (3) Atherosclerosis of coronary artery of [place] heart with angina pectoris Status: Chronic Comment: PCI-JAMIE-Mid LAD w/ 2.25 x 38 Promus Synergy 12/19/17 (4) History of coronary artery stent placement Status: Chronic Comment: PCI-JAMIE-Mid LAD w/ 2.25 x 38 Promus Synergy 12/19/17 (5) Hyperlipidemia Status: Chronic (6) H/O coronary artery bypass surgery Status: Resolved Comment: Thorascopic guided single vessel CABG with a BEST to LAD 05/02/18 History and Physical Date of Admission: 11/30/18 Intake Vital Signs 11/21/18 Body Mass Index (BMI) 24.1 11/21/18 Height 5 ft 1 in 11/21/18 Weight: 131 lb 8 oz 11/21/18 Body Mass Index (BMI) 24.8 11/21/18 Blood Pressure 116/80 Intake Visit Reasons: discuss US results Enrollment Services Vice President Required: No Is patient in pain?: No Allergies colchicine Allergy (Mild, Verified 11/21/18 13:02) unknown omeprazole Allergy (Verified 11/21/18 13:02) lupus rash Vuwifia-Wvu-Tbp Reductase Inhibitor Allergy (Verified 11/21/18 13:02) fever, abn liver function test Sulfa (Sulfonamide Antibiotics) Allergy (Verified 11/21/18 13:02) Other tramadol HCl [From [facility]] Adverse Reaction (Verified 11/21/18 13:02) Other Medications aspirin 81 mg tablet,delayed release 81 mg PO DAILY #90 tab 12/23/17 [Rx Confirmed 11/21/18] azathioprine 50 mg tablet 100 mg PO QHS tab 03/24/18 [History Confirmed 11/21/18] traZODone [Desyrel] 50 mg PO QHS #30 tab 05/09/18 [Rx Confirmed 11/21/18] metoprolol succinate ER 25 mg tablet,extended release 24 hr 25 mg PO DAILY #90 tab 08/01/18 [Rx Confirmed 11/21/18] clopidogrel 75 mg tablet 75 mg PO DAILY #90 tab 08/08/18 [Rx Confirmed 11/21/18] rosuvastatin 5 mg tablet 5 mg PO MOWEFR #36 tab 09/14/18 [Rx Confirmed 11/21/18] norethindrone acetate 5 mg tablet 5 mg PO .COMPLEX #45 tab 10/30/18 [Rx Confirmed 11/21/18] megestrol 40 mg tablet 40 mg PO .COMPLEX #45 tab 11/09/18 [Rx Confirmed 11/21/18] Post menopausal: No Patient : No : No PFSH Medical History Hyperlipidemia (Chronic) Atherosclerosis of coronary artery of [place] heart with angina pectoris (Chronic) Drug-induced lupus erythematosus (Chronic) Ulcerative colitis (Chronic) Acute pericarditis (Resolved) Elevated LFTs (Resolved) Pericarditis (Resolved) Surgical History H/O coronary artery bypass surgery (Resolved 05/02/18) History of coronary artery stent placement (Chronic 12/19/17) History of left heart catheterization (Resolved 04/17/18) Hx of cholecystectomy (Resolved) Family History Father Heart disease Mother Heart disease Other grandparents history of heart disease Social History (Updated 11/21/18 @ 13:52 by Renetta Chin MD) Smoking Status: Never smoker alcohol intake: current details: social substance use type: does not use caffeine: Yes seatbelt use: always do you feel safe at home: Yes 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 history: 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of finance [facility] discuss US results: Details: ABDIEL RICHARDSON is a 48 year old who presents for preop visit. she has been on megace to stop bleeding which has worked. us shows endometrial lesion and adenomyosis. she is requesting iud. Female Reproductive History Menopausal Symptoms: No night sweats Pregancy History 2 Elective abortions Hx Para 3 Spontaneous abortions Hx # Term Pregnancies Ectopic pregnancies Hx # Pregnancies Multiple births # of living children Past Pregnancies Del. Date Name GA/Weeks Outcome Route Bth Weight Infant Gen Labor Lgth Anesthesia Del Locatn Provider FOB Unknown 1996 Payton Urbano Unknown 2000 Rosio [place] Constitutional: Denies fatigue, night sweats, weight gain or weight loss ENT ENT: Reports system reviewed and no additional complaints, except as docu Cardio Card: Denies chest pain Resp Resp: Denies cough or dyspnea GI GI: Reports as per HPI; denies abdominal pain, constipation, nausea or vomiting : Denies nipple discharge, urinary frequency, urinary incontinence, urinary hesitancy, urinary urgency, vaginal discharge, vaginal dryness, vaginal odor or vaginal itching Musc Musc: Denies joint pain, back pain or muscle weakness Skin Skin/Breast: Denies hair loss, change in hair, dry skin, breast lump, breast pain, breast skin changes or nipple discharge Neuro Neuro: Reports system reviewed and no additional complaints, except as docu Psych Psych: Reports system reviewed and no additional complaints, except as docu Endo Endo: Denies cold intolerance, excessive sweating, heat intolerance or increased thirst Vlad/Lymph Hematologic/Lymphatic: Denies easy bleeding, Denies easy bruising, Denies enlarged lymph nodes Exam Const General: cooperative, healthy appearing, comfortable, no acute distress, well developed Orientation: alert [facility] Head: normal to inspection, normocephalic Ears: hearing grossly normal bilaterally, external ears normal Nose: external nose normal, nares normal Face and sinus: normal facial exam Neck Neck: normal visual inspection, no lymphadenopathy Thyroid: thyroid normal Chest Chest palpation & inspection: normal inspection of the chest Resp Effort & Inspection: normal respiratory effort Auscultation: clear to auscultation bilaterally Cardio Rate: regular rate Rhythm: regular rhythm Heart Sounds: S1 normal, S2 normal GI Inspection: normal to inspection, non-distended Palpation: soft, no hepatosplenomegaly Musc Other: gross motor intact no deficits, full bilateral strength Skin General: no rashes or lesions noted Neuro General: alert, awake, moves all extremities, no focal motor deficits Motor: muscle tone normal throughout Extrem General: normal to inspection, no pedal edema Psych Appearance: grossly normal Mental Status: mental status grossly normal Affect: normal affect Speech and Movement: speech and movement normal Assessment & Plan Problems 1. Lesion of endometrium N85.8 2. H/O coronary artery bypass surgery Z95.1 Thorascopic guided single vessel CABG with a BEST to LAD 05/02/18 3. Adenomyosis N80.9 plan iud after symphion Plan plan d and c hysteroscopy symphion and iud insertion Coding Level of Care Code No Charge Diagnoses Lesion of endometrium N85.8 H/O coronary artery bypass surgery Z95.1 Adenomyosis N80.9 UPDATE- I have seen the patient and performed any clinically relevant updates to the history and physical exam. Renetta Chin MD
[2018-11-30 09:48] LABS: Internal QC Validated? YES +Cl - CLEAR BKGD; Pregnancy, Urine Negative Negative
[2018-11-30] MEDS: Lactated Ringers 1,000 ML 125 ML IV (09:55)
--- NOTE | 2018-11-30 10:30 | EMB_PTH ---
PATIENT: ABDIEL RICHARDSON LOC[place] [facility] [place][id number] AGE/SX: 48/F ROOM: RE11/30/[address]: Dr. Renetta Chin MD : 1970 BED: DIS: 11/30/2018 SPEC #: [id number] RECD: 11/30/18 12:36 STATUS: JONATHAN REMima #: [id number] ADRIANNA: 11/30/18 10:[address]: Renetta Chin DEPT: SURGICAL PATHOLOGY RECD BY: Jeferson Woods ENTERED: 11/30/18 13:29 SP TYPE: ENDOM BX/C OTHR DR: Dr. Kenzie Torrez DO Tissues: Endometrium, NOS Procedures: Surgery Specimen Level IV HEADER OPERATION: Hysteroscopy, myomectomy, D & C Symphion, IUD insertion PRE-OP DIAGNOSIS: Lesion of endometrium TISSUE SUBMITTED: Endometrial curettings MICROSCOPIC DIAGNOSIS Endometrial curettings: Fragments of myometrium, consistent with submucosal leiomyoma. Scant benign endometrial tissue. See comment. DAQUAN:bethany 12/01/18 COMMENT The specimen predominantly consists of myometrial tissue, most consistent with submucosal leiomyoma. Only scant benign endometrial tissue is noted overlying the myometrial tissue. Correlation with clinical findings and appropriate follow up are necessary. MICROSCOPIC DESCRIPTION Slides are reviewed. GROSS DESCRIPTION Received in fixative is one container labeled with the patient's name and designated endometrial curettings. The specimen consists of multiple irregular fragments of gann soft tissue that in aggregate measure 3 x 2.5 x 0.3 cm. The entire specimen is submitted in one cassette. / DAQUAN:bethany 11/30/18 TC:1 CPT: 20980
--- NOTE | 2018-11-30 11:00 | PCM.OPRPT ---
Problem List (1) Adenomyosis Status: Acute Comment: plan iud after symphion (2) Lesion of endometrium Status: Acute (3) History of coronary artery stent placement Status: Chronic Comment: PCI-JAMIE-Mid LAD w/ 2.25 x 38 Promus Synergy 12/19/17 (4) Hyperlipidemia Status: Chronic (5) H/O coronary artery bypass surgery Status: Resolved Comment: Thorascopic guided single vessel CABG with a BEST to LAD 05/02/18 Report of Operation Date of Procedure: 11/30/18 Pre-Operative Diagnosis: aub, endometrial lesion Post-Operative Diagnosis: same plus fibroids Surgery/Procedure Performed:: d and c hysteroscopy symphion resection of lesion and mirena iud insertion Description of Surgical Findings:: endometrial fibroids retroverted uterus grade II prolapse of uterus Type of Anesthesia:: Local MAC Special Medications: none Specimen's removed: emc Drains: none Estimated Blood Loss (mL): 25 Fluids Replaced: crystalloid Description of Procedure: Patient was prepped and draped in a normal sterile fashion under MAC anesthesia. A weighted speculum was placed in the vagina and the anterior lip of the cervix was grasped with a single-tooth tenaculum. A paracervical block was placed with 1% lidocaine. Cervix was progressively dilated to allow passage of a 5 mm hysteroscope. The lining was fully visualized and noted to have 2 endometrial fibroids. Uterine sounded to 9 cm. Using the symphion device, the fibroids will progressively removed without complications. Direct visual curettage was performed using the device , and all specimens were sent to pathology. All instruments were removed from the vagina and excellent hemostasis was noted. Patient was awoken and taken to recovery in stable condition. Grafts/Implants Used: none - Complications non - Admit VTE Documentation VTE Present on Admission: No VTE Mechan Device Prophylaxis: SCD's Multi Select Codes - Urinary/Genital Urinary/Genital CPT Codes: 93693 Insert Intrauterine Device - 71424 hysteroscopic fibroid removal, Other Procedure See Report - 25177 hysteroscopic myomectomy
--- NOTE | 2018-11-30 11:36 | DCINST_ITS ---
Discharge Diet: No Restrictions Discharge Activity: Return to Normal Activity, May not drive while taking narcotic pain medications., May Shower May resume sexual activity in: 4-6 weeks Call your doctor if your incision/area has: Continuous Slow Oozing, Sudden Increased Bleeding, Increased Pain/ Swelling, Increased Redness, Foul Smelling Discharge Additional Instructions: If you experience any of the following, contact your healthcare provider. * Bleeding that soaks a pad every hour for 2 hours * Fever 100.4 or higher * Unrelieved incision or abdominal pain * Swelling, redness, discharge or bleeding from your incision or episiotomy site * Your incision begins to separate * Problems urinating (including inability to urinate or burning while urinating). * Visual changes * Severe headache * Flu-like symptoms * Pain or redness in one of both of your breasts * Pain, warmth, tenderness or swelling in your legs, especially the calf area * Frequent nausea and vomiting * Symptoms of depression or anxiety If you experience any of the following, call 911 or go to the nearest Emergency Room. * Chest pain * Problems breathing * Seizure activity * Partial or complete paralysis of a body part, slurred speech, weakness or drooping of the face, or a sudden inability to walk or hold your balance Allergies/Adverse Reactions: Allergies colchicine Allergy (Mild, Verified 11/24/18 08:15) unknown omeprazole Allergy (Verified 11/24/18 08:15) lupus rash Cmntrpb-Cfd-Fae Reductase Inhibitor Allergy (Verified 11/24/18 08:15) fever, abn liver function test Sulfa (Sulfonamide Antibiotics) Allergy (Verified 11/24/18 08:15) Other tramadol HCl [From [facility]] Adverse Reaction (Verified 11/24/18 08:15) Other Medications to take at Discharge aspirin 81 mg tablet,delayed release 81 mg PO DAILY #90 tab 12/23/17 azathioprine 50 mg tablet 100 mg PO QHS tab 03/24/18 metoprolol succinate ER 25 mg tablet,extended release 24 hr 25 mg PO DAILY #90 tab 08/01/18 clopidogrel 75 mg tablet 75 mg PO DAILY #90 tab 08/08/18 rosuvastatin 5 mg tablet 5 mg PO MOWEFR #36 tab 09/14/18 Megestrol Acetate 40 mg PO DAILY 11/24/18 Please Follow Up With: Renetta Chin MD - [phone] When: Call to make an appointment with your doctor in 6 weeks. If you had elevated Blood pressure or 4th degree laceration you will need to be seen in 2 weeks. Primary Care Physician: Kenzie Torrez DO [Primary Care Provider] - Test Results: Test results from this visit will be discussed in further detail at your follow- up appointment, if applicable.
== END 2018-11-30 12:57 | disposition home or self-care (01) ==
LOC: SDC 09:00 → AC 09:01
PROVIDERS: Anesthesiology; Family Provider Family Medicine; PCP Family Medicine; Referring Provider Obstetrics & Gynecology; Visit Provider Obstetrics & Gynecology
PROC: 0UB98ZZ Excision of Uterus, Via Natural or Artificial Opening Endoscopic (ICD-10-PCS; CPT 58558; principal; 2018-11-30 10:15)
DX: D25.9 Leiomyoma of uterus, unspecified (principal); N80.0 Endometriosis of uterus; N81.2 Incomplete uterovaginal prolapse; I25.10 Atherosclerotic heart disease of native coronary artery without angina pectoris; E78.00 Pure hypercholesterolemia, unspecified; K51.90 Ulcerative colitis, unspecified, without complications; Z95.1 Presence of aortocoronary bypass graft; Z79.899 Other long term (current) drug therapy; Z79.82 Long term (current) use of aspirin
CPT/HCPCS: 58300; 58561; 36415; 81025; 85027; 86850; 86900; 86901; 88305; J7120; J2405

== ENCOUNTER → 2018-12-06 | Outpatient (CLI) | payer OTHER, SELFPAY ==
[2018-10-24 14:52] VITALS: BMI 25.2
[2018-11-30 09:30] VITALS: BMI 23.6
--- NOTE | 2018-12-06 13:58 | BI_ITS ---
MAMMOGRAPHY - BILATERAL SCREENING REASON FOR EXAM: Female, 48 years old. Routine annual screening examination. PERTINENT HISTORY: Non-contributory. TECHNIQUE: Digital bilateral breast yue (3D mammographic acquisition) in the CC and MLO projections. 2-D mediolateral oblique (MLO) and craniocaudad (CC) views of both breasts were obtained. CAD: Full Field Digital Mammography with Computer Added Detection was performed. COMPARISON: Comparison is made with prior study dated June 07, 2017 and October 15, 2015. FINDINGS: Breast Composition: The breasts are extremely dense, which lowers the sensitivity of mammography. There are no dominant masses or suspicious calcifications. Previously seen well-defined nodule in the superior retroareolar region of the right breast has markedly decreased in size. It is barely perceptible at this time. Stable appearance of the bilateral axillary lymph nodes. No other significant abnormalities are identified. BI/SCREEN MAMM (CAD) W/YUE BILAT IMPRESSION: Decreased size of the previously seen left breast nodule. Yearly follow-up mammogram recommended. (A) ASSESSMENT CATEGORY: BIRADS Category 2: Benign. A letter regarding these results will be sent to the patient by the facility within 30 days. Approximately 10% of breast cancers are not detected by mammography. A normal mammogram should not delay biopsy of a clinically suspicious abnormality. [id number] Electronically Signed: Garrett Reed, at 14:59 EDT , Service support ,
== END | disposition home or self-care (01) ==
LOC: OPBI 13:38
PROVIDERS: Family Provider Family Medicine; PCP Family Medicine; Referring Provider Nurse Practitioner Women's Health; Visit Provider Nurse Practitioner Women's Health
DX: Z12.31 Encounter for screening mammogram for malignant neoplasm of breast (principal)
CPT/HCPCS: 77063; 77067

== ENCOUNTER → 2018-12-18 15:45 | Outpatient (CLI) | payer OTHER, SELFPAY ==
[2018-12-18 14:53] VITALS: BMI 24.1
[2018-12-18 16:38] LABS: Absolute Neutrophil Count 3.5 X10^3/uL (2.0-7.7); Basophil# 0.05 X10^3/uL; Eosinophil# 0.14 X10^3/uL; Eosinophils% 2.7 % (0-5); Hematocrit 40.1 % (37-47); Hemoglobin 13.1 g/dL (12.0-15.0); Lymphocyte % 19.5 % (19-41); Mean Corp Hgb Conc 32.7 g/dL (32-36); Mean Platelet Vol. 9.3 fl (6.2-12.0); Monocyte# 0.45 X10^3/uL; Monocyte% 8.8 % (0-10); NRBC Flagged by Analyzer 0 % (0-5); Neutrophil # 3.48 X10^3/uL (2.7-7.7); Platelet Count 246 K/mm3 (150-450); RBC Distribution Width CV 11.7 % (11.6-14.6); RBC Distribution Width SD 42.5 fl (35.1-43.9); Red Blood Count 4.09 M/mm3 (4.2-5.4); White Blood Count 5.1 K/mm3 (4.4-11.0)
[2018-12-18 17:11] LABS: Anion Gap 8 (5-15); BUN 11 mg/dL (7-18); BUN/Creat Ratio 15.3 RATIO (10-20); Calcium,Total 8.9 mg/dL (8.5-10.1); Chloride 106 mmol/L (98-107); Creatinine, Serum 0.72 mg/dL (0.55-1.02); EST Glomerular Filtration Rate 92 mL/min (>60); Est Glom Filt Rate - Afr Amer 111 mL/min (>60); Glucose 100 mg/dL (74-106); Potassium 3.7 mmol/L (3.5-5.1); Sodium Level 141 mmol/L (136-145)
== END ==
PROVIDERS: Family Provider Family Medicine; PCP Family Medicine; Referring Provider Internal Medicine Cardiovascular Disease; Visit Provider Internal Medicine Cardiovascular Disease
DX: Z95.1 Presence of aortocoronary bypass graft (principal)
CPT/HCPCS: 36415; 80048; 85025

== ENCOUNTER 2018-12-19 10:33 | Day surgery (SDC) | payer OTHER, SELFPAY ==
[2018-12-18 14:53] VITALS: BMI 24.1
--- NOTE | 2018-12-18 15:30 | RAD_ITS ---
STUDY: X-RAY CHEST REASON FOR EXAM: Female, 48 years old. Chest pain, history of CAD, single bypass, stent TECHNIQUE: PA and lateral views of the chest. COMPARISON: Prior study of 05/06/2018 FINDINGS: The lungs are clear and expanded. There is no demonstrated pleural abnormality. Normal size heart. Normal mediastinum and parul. Normal visualized pulmonary arteries. Normal visualized aortic arch and descending thoracic aorta. Normal visualized thoracic spine. Normal visualized ribs, clavicles, and shoulders. There is no demonstrated abnormality of the visualized soft tissue structures of the upper abdomen. RAD/Chest PA and Lateral IMPRESSION: Normal x-ray examination of the chest. There has been interval resolution of left basilar atelectasis seen on the prior study. Electronically Signed: Helio Butt MD at 23:52 EDT , Service support ,
[2018-12-19] VITALS (17 sets, daily range): BP systolic 107–149; BP diastolic 74–99; PULSE 57–99; RESP 10–25; TEMP 36.5–36.6; O2SAT 95–100; BMI 24.5
[2018-12-19 11:02] LABS: Internal QC Validated? YES +Cl - CLEAR BKGD; Pregnancy, Urine Negative Negative
[2018-12-19] MEDS: 0.9% Normal Saline 1,000 ML 60 ML IV (14:49)
--- NOTE | 2018-12-19 17:24 | CL.I_ITS ---
Patient Name: ABDIEL RICHARDSON Study Date: 12/19/2018 Performing: Mega Schultz MD Ht: 61.02 inches 155 cm : 1970 Wt: 127.87 lbs 58 kg Age: 48 Gender: female BSA: 1.56 PROCEDURE(S) PERFORMED WP94-EVU W OR WO PTCA, SINGLE CORONARY ARTERY CLINICAL PROFILE AND CO-MORBIDITIES Indications: Suspected CAD, Suspected CAD Heart Failure: None Stress/Imaging Stress/Image Study Performed: No Stress/Image Study Performed: No CAD Presentations: Unstable angina. Unstable angina. CONCLUSIONS Successful PCI with JAMIE to the ostial LAD RECOMMENDATIONS Follow up with Dr. Latanya PATEL Indefinitley Plavix for at least 12 months Routine post interventional care DESCRIPTION OF PROCEDURE The patient arrived to the procedure lab. The risks and benefits of the procedure as well as a full d escription of our services here and current unavailability of surgical backup were fully explained to the patient and/or their significant other prior to the catheterization. The Timeout was completed, verifying the correct patient and procedure. The patient's procedural site was prepped and draped in the usual fashion. Local anesthetic was given subcutaneously to left radial region with Lidocaine 2% Using a modified Seldinger technique,arterial access was obtained via the left radial artery, a 6Fr s seymour was inserted. Left internal mammary artery graft to the septal branch selective angiography was performed in multiple views using a 5 Fr. IM catheter. Left Coronary Artery selective angiography wa s performed in multiple views using a 5 Fr. JL4 catheter. Right Coronary Artery selective angiography was then performed in multiple views using a 5 Fr. 3DRC (Ian) catheter. Left Coronary Artery selective angiography was performed in multiple views using a 5 Fr. JL3.5 catheter. e images were reviewed and options discussed. A decision was then made to proceed with an Interventio n, IVUS or other adjunct procedure. XB 3.0 Guide catheter was inserted and engaged into the LCA. [place] Guide wire was advance d to the LAD. Synergy 2.5 x 8 Drug Eluting stent was inserted. Drug Eluting stent was advanced across the lesion in the LAD, ostial. Angiogram performed pre stent deployment. Angiogram performed post st ent deployment. The arterial sheath was pulled and a TR Band was applied for hemostasis INTERVENTION INFORMATION LESION SITE: LAD (Ostial) Lesion Complexity: High/C, chronic total occlusion: No, lesion at bifurcation: No, thrombus present: No, lesion length: 4 mm, culprit lesion: Yes, Previously treated lesion: No Pre Stenosis: 95 % Pre intervention AQUILINO flow: 3 PROCEDURE: Drug Eluting Stent There is a new lesion in the mid LAD immediately after the origin of a large diagonal branch. This co mpormises flow from the BEST to the large diagonal and also a large septal branch and proximal LAD. P CI of the ostial LAD was done to improve flow to these regions. Post Stenosis: 0 % Post intervention AQUILINO flow: 3 Lesion Devices: Cordis 6 Fr XB3.0 100cm Guide Catheter Phillips .014 BMW [place] Straight 190cm Yooli Synergy MR JAMIE 2.50x08 COMPLICATIONS No Complications PROCEDURE MEDICATIONS Fentanyl 50 mcg IV Versed 1 mg IV Versed 1 mg IV Oxygen: 2 L/min via nasal cannula Heparin diluted in 23cc Heparinized saline. Patient given 10cc IA of this solution. 12/19/2018 12:07: 02 Heparin 5000 unit(s) IV 12/19/2018 13:07:30 Verapamil 2.5mg, Ntg 100mcgs, 2000 units of Heparin diluted in 23cc Heparinized saline. Patient give n 10cc IA of this solution. 12/19/2018 12:07:02 IV Bolus: .9 NaCl 400 ml total 12/19/2018 13:43:37 SUMMARY OF HEMODYNAMIC DATA Time AIR REST ECG 10:50:37 AO 131/88 (107) SA 12:08:31 Signed By Mega Schultz MD On 12/19/2018 17:23:36 Mega Schultz MD
[2018-12-19] MEDS: DiphenhydrAMINE 25 MG Capsule 50 MG PO (21:09)
[2018-12-19] MEDS: Clopidogrel Bisulfate 75 MG Tablet PO (21:09)
[2018-12-19] MEDS: azaTHIOprine 50 MG Tablet 100 MG PO (21:09)
[2018-12-20] VITALS (10 sets, daily range): BP systolic 96–111; BP diastolic 61–73; PULSE 59–95; RESP 12–18; TEMP 36.6–37.3; O2SAT 18–100
[2018-12-20 04:37] LABS: Hematocrit 39.9 % (37-47); Hemoglobin 13.5 g/dL (12.0-15.0); Mean Corp Hgb Conc 33.8 g/dL (32-36); Mean Corpuscular Volume 97.6 fL (81-99); Mean Platelet Vol. 8.9 fl (6.2-12.0); Platelet Count 216 K/mm3 (150-450); RBC Distribution Width CV 11.5 % (11.6-14.6); RBC Distribution Width SD 41.5 fl (35.1-43.9); Red Blood Count 4.09 M/mm3 (4.2-5.4); White Blood Count 4.8 K/mm3 (4.4-11.0)
[2018-12-20 04:53] LABS: ALB/GLOB Ratio 1.2 RATIO (0.9-2.4); AST(SGOT) 31 U/L (15-37); Alanine Aminotransfer ALT/SGPT 38 U/L (13-56); Albumin, Serum 3.6 g/dL (3.2-5.0); Alkaline Phosphatase 56 U/L (45-117); Anion Gap 8 (5-15); BUN 9 mg/dL (7-18); BUN/Creat Ratio 15.3 RATIO (10-20); Calcium,Total 8.5 mg/dL (8.5-10.1); Chloride 111 mmol/L (98-107); Creatinine, Serum 0.59 mg/dL (0.55-1.02); EST Glomerular Filtration Rate 116 mL/min (>60); Est Glom Filt Rate - Afr Amer 140 mL/min (>60); Estimated Creatinine Clearance 87.99 ml/min; Globulin 2.9 g/dL (2.2-4.2); Glucose 90 mg/dL (74-106); Potassium 3.9 mmol/L (3.5-5.1); Protein, Total 6.5 g/dL (6.4-8.2); Sodium Level 142 mmol/L (136-145)
--- NOTE | 2018-12-20 05:02 | EKG12_ITS ---
Test Reason : AM EKG Blood Pressure : / mmHG Vent. Rate : 068 BPM Atrial Rate : 068 BPM P-R Int : 160 ms QRS Dur : 090 ms QT Int : 398 ms P-R-T Axes : 043 001 030 degrees QTc Int : 423 ms Normal sinus rhythm Normal ECG When compared with ECG of 07-MAY-2018 05:52, No significant change was found Confirmed by SOLOMON LAFLEUR, MAYANK ([id number]), telegraph editor KIERSTEN ESCOBAR ([id number]) on 12/25/2018 4:17:35 PM Referred By: Bry Pelaez Confirmed By:TORY CARBAJAL MD
--- NOTE | 2018-12-20 06:36 | CRPH1.INSTRU ---
General Education CAD and cardiac anatomy and function:: Not instructed Explanation of diagnoses and procedures:: Not instructed Sign/Symptoms of SC:: Not instructed Antiplatelet therapy: Not instructed Proper use of NTG-SL: Not instructed Emergency procedures and activation of EMS: Not instructed Compliance of all prescribed medications: Not instructed - Patient was instructed on 12/21/2017 w/previous PCI and coronary stent procedure. Patient has also participated in Phase II Outpatient Cardiac Rehab.
--- NOTE | 2018-12-20 06:38 | CRPHASE1 ---
Patient Communication Former Patient:: Phase I - 12/21/2017, Phase II - Previous CR Phase II patient x 2. PHII Cardiac Rehab Discussed with Patient:: Yes Guide to Cardiac Rehab Given to Patient:: Yes Cardiac Rehab Facility Choice List Given to Patient:: Yes Choice Program [facility] CR PHII:: Communication Given to CR, Refer to [facility] [place] Sizer:: Bry Pelaez Phase II Cardiac Rehab:: Yes Sessions:: 36 sessions - 3 days/wk, 12 weeks - Patient also participates in Cross-Fit training for exercise. Risk Factors/Lifestyle Family History: Family History (Last Reviewed 12/18/18 @ 15:15 by Bry Pelaez MD) Father Heart disease Mother Heart disease Other grandparents history of heart disease Cardiac Rehabilitation Info Cardiac Rehabilitation Program Information: Cardiac Rehabilitation is important for patients like you who are recovering from a heart problem. Cardiac rehabilitation programs are recognized as integral to the continued care of the patient with coronary heart disease. The cardiac rehabilitation program is designed to optimize a patient's physical, psychological, and social functioning. Health caregivers non medical work in cardiac rehabilitation programs and assist you with getting the treatments you need to get stronger and healthier - like exercise, healthy eating habits, and medications. Cardiac rehabilitation has been show to help people with heart problems live longer and have better life enjoyment than people who do not go to cardiac rehabilitation. Please contact the Cardiac Rehabilitation Program at [facility] at in two weeks if you have not heard from them.
--- NOTE | 2018-12-20 07:02 | PN.CARD_ITS ---
Subjectve: Patient seen and evaluated. Appears to be doing well. No chest pain or back pain overnight. Objective: Vital Signs Temp Pulse Resp BP Pulse Ox 99.1 F 79 16 109/68 97 12/20/18 04:00 12/20/18 06:00 12/20/18 06:00 12/20/18 06:00 12/20/18 06:00 Oxygen Delivery Method Room Air Weight: 127 lb 13.89 oz Body Mass Index (BMI) 24.5 Intake and Output for Last 24 Hours 12/18/18 12/19/18 12/20/18 23:59 23:59 23:59 Intake Total 1547 / 1547 53 / 53 Balance 1547 / 1547 53 / 53 General: Awake, Alert, Oriented x 3 HEENT: PERRL, EOMI, Sclera Non Icteric Neck: Supple, Good ROM, No Lymph Node Enlargement Lungs: Clear to auscultation Cardiovascular: Regular Rhythm, Normal S1, Normal S2, No Murmurs, No Rubs, No Gallops Vascular: No Carotid Bruits, Normal Femoral Pulses, Normal Radial Pulses, Normal Dorsalis Pedal Pulse, Normal Posterior Tibial Pulses Abdomen: Bowel Sounds Present, Soft, Non Tender, No HSM, No Organomegaly Extremities: No Cyanosis, No Clubbing, No edema Musculoskeletal: No Erythema Skin: No Rashes Lymphatic: No Lymph Node Enlargement Neurological: No Focal Motor or Sensory Deficit Psych/Mental Status: Appropriate 12/20/18 04:25: WBC 4.8, RBC 4.09 L, Hgb 13.5, Hct 39.9, MCV 97.6, MCH 33.0 H, MCHC 33.8, Plt Count 216, MPV 8.9 12/20/18 04:25: Sodium 142, Potassium 3.9, Chloride 111 H, Carbon Dioxide 23.0, Anion Gap 8, BUN 9, Creatinine 0.59, Est GFR (MDRD) Af Amer 140, Est GFR (MDRD) Non-Af 116, BUN/Creatinine Ratio 15.3, Glucose 90, Calcium 8.5, Total Bilirubin 0.70 Rhythm: EKG: ECHO: Stress Test: Cardiac Cath: PCI: CT Surgery: Holter monitor: EPS: PPM: CXR: Chest CT Scan: Medical Necessity - Tobacco Use Smoking Status: Never smoker Assessment/Plan 1. Premature coronary artery disease. * Patient has a history of known coronary artery disease status post coronary artery bypass surgery. She presented with chest discomfort underwent cardiac catheterization yesterday which demonstrated evidence of non-total revascularization. She underwent angioplasty and stenting of the proximal left anterior descending artery. Mild disease is noted in the circumflex artery and no significant disease in the right coronary artery. * Patient will be continued on her current medical therapy * Statins will be continued and ezetimibe will be added for further risk stratification. * * Patient stable to be discharged today. EKG without any changes and laboratory tests stable
--- NOTE | 2018-12-20 07:07 | DCINST_ITS ---
Discharge Diet: No Restrictions - You may continue your normal diet. Call your doctor if your incision/area has: Increased Pain/ Swelling, Increased Redness, Foul Smelling Discharge, Swelling at the incision site Call your doctor if you observe: Fever of 101 or Higher Additional Dressing/Incision Instructions:: Keep the dressing (bandage) on until the next morning. You may then shower, but do not take a tub bath for 5 days after your test. It is normal to have some tenderness and discomfort at the puncture site. Sometimes bruising also occurs. However, if pain, numbness, or coldness occurs below the puncture site (in your leg, toes, arms or fingers) call your doctor at once. You may have a small, marble sized knot at the puncture site. This is normal. Do not rub it. It will go away in 4-6 weeks. Bleeding can occur from the area where the puncture was done. Blood may spurt or drip from the site. If blood spurts, apply pressure right away to stop bleeding and call 911. Although rare, bleeding into the tissue (hematoma) can also occur. If this happens, a large, firm area goose egg under the skin will appear. If any of these occur, lie down as flat as you can and have someone apply firm pressure to the cath site with a gauze pad or a clean washcloth for 10-15 minute s. Call 911 or go to the Emergency Department. Allergies/Adverse Reactions: Allergies colchicine Allergy (Mild, Verified 12/18/18 14:54) unknown omeprazole Allergy (Verified 12/18/18 14:54) lupus rash Qzjacbz-Xud-Bfl Reductase Inhibitor Allergy (Verified 12/18/18 14:54) fever, abn liver function test Sulfa (Sulfonamide Antibiotics) Allergy (Verified 12/18/18 14:54) Other tramadol HCl [From Ultra] Adverse Reaction (Verified 12/18/18 14:54) Other Medications to take at Discharge aspirin 81 mg tablet,delayed release 81 mg PO DAILY #90 tab 12/23/17 azathioprine 50 mg tablet 100 mg PO QHS tab 03/24/18 metoprolol succinate ER 25 mg tablet,extended release 24 hr 25 mg PO DAILY #90 tab 08/01/18 clopidogrel 75 mg tablet 75 mg PO DAILY #90 tab 08/08/18 rosuvastatin 5 mg tablet 5 mg PO MOWEFR #36 tab 09/14/18 amoxicillin 875 mg tablet 875 mg PO BID #20 tab 12/13/18 Ezetimibe [Zetia] 10 mg PO DAILY #30 tab 12/20/18 The following prescriptions were given: Ezetimibe [Zetia] 10 mg PO DAILY #30 tab Transmission Status: Pending to [facility] Primary Care Physician: Kenzie Torrez DO [Primary Care Provider] - Test Results: Test results from this visit will be discussed in further detail at your follow- up appointment, if applicable. Proposed Discharge Date: 12/20/18 Cardiac Rehabilitation Info Cardiac Rehabilitation Program Information: Cardiac Rehabilitation is important for patients like you who are recovering from a heart problem. Cardiac rehabilitation programs are recognized as integral to the continued care of the patient with coronary heart disease. The cardiac rehabilitation program is designed to optimize a patient's physical, psychological, and social functioning. Health medicare biller work in cardiac rehabilitation programs and assist you with getting the treatments you need to get stronger and healthier - like exercise, healthy eating habits, and medications. Cardiac rehabilitation has been show to help people with heart problems live longer and have better life enjoyment than people who do not go to cardiac rehabilitation. Please contact the Cardiac Rehabilitation Program at [facility] at in two weeks if you have not heard from them.
[2018-12-20] MEDS: Aspirin E.C. 81 MG Tablet PO (07:24)
[2018-12-20] MEDS: Metoprolol(XL)Succ 25 MG Tablet PO (07:24)
[2018-12-20] MEDS: Ezetimibe 10 MG Tablet PO (08:11)
--- NOTE | 2018-12-20 08:32 | CL.D_ITS ---
Patient Name: ABDIEL RICHARDSON Study Date: 12/19/2018 Performing: Bry Pelaez MD Ht: 61 inches 155 cm : 1970 Wt: 128 lbs 58 kg Age: 48 Gender: female BSA: 1.56 PROCEDURE(S) PERFORMED [id number]/CABG [id number] W OR WO PTCA, SINGLE CORONARY ARTERY CLINICAL PROFILE AND INDICATIONS Indications: Suspected CAD, Suspected CAD Heart Failure: None Stress/Imaging Stress/Image Study Performed: No Stress/Image Study Performed: No CAD Presentations: Unstable angina. Unstable angina. CONCLUSIONS The proximal left anterior descending artery appears to have a napkin ring lesion in the bifurcation of the LAD and diagonal in the mid segment appears to have an 80% stenotic lesion. There is mild to moderate disease noted in the circumflex artery. RECOMMENDATIONS Referred for immediate PCI DESCRIPTION OF PROCEDURE The patient arrived to the procedure lab. The risks and benefits of the procedure as well as a full d escription of our services here and current unavailability of surgical backup were fully explained to the patient and/or their significant other prior to the catheterization. The Timeout was completed, verifying the correct patient and procedure. The patient's procedural site was prepped and draped in the usual fashion. Local anesthetic was given subcutaneously to left radial region with Lidocaine 2%. Using a modified Seldinger technique, arterial access was obtained via the left radial artery, a 6Fr sheath was inserted. Left internal mammary artery graft to the septal branch selective angiography was performed in multiple views using a 5 Fr. IM catheter. Left Coronary Artery selective angiography was performed in multiple views using a 5 Fr. JL4 catheter. Right Coronary Artery selective angiogra phy was then performed in multiple views using a 5 Fr. 3DRC (Ian) catheter. Left Coronary Artery selective angiography was performed in multiple views using a 5 Fr. JL3.5 catheter.Th e arterial sheath was pulled and a TR Band was applied for hemostasis CORONARY ANGIOGRAPHY DOMINANCE: Right Dominant LEFT HEART ASSESSMENT Left Ventricular Ejection Fraction: by Echo 55 % LEFT MAIN: Angiographically normal LEFT ANTERIOR DESCENDING ARTERY: OSTIAL LAD: Napkin ring 90% stenosis noted PROX LAD: Previously placed stent is patent CIRCUMFLEX ARTERY: PROX CIRC: 40 % Stenosis RIGHT CORONARY ARTERY: No significant disease noted GRAFTS: BEST graft to the Mid LAD The BEST graft attaches to the mid LAD after the takeoff of a large diagon al branch. The proximal portion of this mid LAD with a diagonal comes of has an 80% stenotic lesion. COMPLICATIONS No Complications PROCEDURE MEDICATIONS Fentanyl 50 mcg IV Versed 1 mg IV Versed 1 mg IV Oxygen: 2 L/min via nasal cannula Heparin diluted in 23cc Heparinized saline. Patient given 10cc IA of this solution. 12/19/2018 12:07: 02 Heparin 5000 unit(s) IV 12/19/2018 13:07:30 Verapamil 2.5mg, Ntg 100mcgs, 2000 units of Heparin diluted in 23cc Heparinized saline. Patient give n 10cc IA of this solution. 12/19/2018 12:07:02 IV Bolus: .9 NaCl 400 ml total 12/19/2018 13:43:37 SUMMARY OF HEMODYNAMIC DATA Time AIR REST ECG 10:50:37 AO 131/88 (107) SA 12:08:31 Signed By Bry Pelaez MD On 12/20/2018 08:31:43 Bry Pelaez MD
--- NOTE | 2018-12-20 10:00 | EKG12_ITS ---
Test Reason : S/P PCI Blood Pressure : / mmHG Vent. Rate : 058 BPM Atrial Rate : 058 BPM P-R Int : 158 ms QRS Dur : 090 ms QT Int : 410 ms P-R-T Axes : 035 -07 032 degrees QTc Int : 402 ms Sinus bradycardia Otherwise normal ECG When compared with ECG of 07-MAY-2018 05:52, No significant change was found Confirmed by SOLOMON LAFLEUR, MAYANK ([id number]), copy editor KIERSTEN ESCOBAR ([id number]) on 12/25/2018 3:51:03 PM Referred By: Bry Pelaez Confirmed By:TORY CARBAJAL MD
== END 2018-12-20 08:28 | disposition home or self-care (01) ==
LOC: CLSP 10:34 → ICU 13:36
PROVIDERS: Specialist; Family Provider Family Medicine; PCP Family Medicine; Referring Provider Internal Medicine Cardiovascular Disease; Visit Provider Internal Medicine Cardiovascular Disease
DX: I25.118 Atherosclerotic heart disease of native coronary artery with other forms of angina pectoris (principal); E78.00 Pure hypercholesterolemia, unspecified; N80.0 Endometriosis of uterus; K51.90 Ulcerative colitis, unspecified, without complications; Z95.1 Presence of aortocoronary bypass graft; Z79.82 Long term (current) use of aspirin; Z79.899 Other long term (current) drug therapy
CPT/HCPCS: 71046; 80053; 81025; 85027; 92928; 93005; 93455; 99152; 99153; J7030; J7040; Q9967; C1769; C1874; C1887; C1894; C9600

== ENCOUNTER → 2018-12-29 12:15 | Outpatient (CLI) | payer OTHER, SELFPAY ==
[2018-12-29 09:22] VITALS: BMI 24.3
[2018-12-29 13:24] LABS: Absolute Lymphocyte Count 0.68 X10^3/uL (0.83-4.51); Absolute Neutrophil Count 3.4 X10^3/uL (2.0-7.7); Basophil# 0.03 X10^3/uL; Basophil% 0.6 % (0-1); Eosinophil# 0.09 X10^3/uL; Eosinophils% 1.9 % (0-5); Erythrocyte Sedimentation Rate 6 mm/hr (0-20); Hematocrit 42.1 % (37-47); Hemoglobin 14.3 g/dL (12.0-15.0); Lymphocyte # 0.68 X10^3/ul (4.0); Lymphocyte % 14.4 % (19-41); Mean Corpuscular Hgb 33.6 pg (27.0-32.0); Mean Corpuscular Volume 99.1 fL (81-99); Mean Platelet Vol. 9.3 fl (6.2-12.0); Monocyte# 0.49 X10^3/uL; Monocyte% 10.4 % (0-10); NRBC Flagged by Analyzer 0 % (0-5); Neutrophil # 3.42 X10^3/uL (2.7-7.7); Neutrophil % 72.5 % (47-70); Platelet Count 313 K/mm3 (150-450); RBC Distribution Width CV 11.9 % (11.6-14.6); RBC Distribution Width SD 43.4 fl (35.1-43.9); Red Blood Count 4.25 M/mm3 (4.2-5.4); White Blood Count 4.7 K/mm3 (4.4-11.0)
[2018-12-29 14:07] LABS: CRP, High Sensitivity Cardiac < 0.16 mg/L
== END ==
PROVIDERS: Family Provider Family Medicine; PCP Family Medicine; Referring Provider Internal Medicine Cardiovascular Disease; Visit Provider Internal Medicine Cardiovascular Disease
DX: I20.8 Other forms of angina pectoris (principal); Z95.1 Presence of aortocoronary bypass graft; Z95.5 Presence of coronary angioplasty implant and graft
CPT/HCPCS: 36415; 85025; 85652; 86141

== ENCOUNTER → 2019-01-01 15:08 | Outpatient (CLI) | payer OTHER, SELFPAY ==
[2018-12-29 09:22] VITALS: BMI 24.3
[2019-01-01 16:01] LABS: Internal QC Validated? YES +Cl - CLEAR BKGD; Monotest Negative (Negative)
[2019-01-04 15:28] LABS: EBV Acute VCA IgM < 36.0 U/mL (0.0-35.9); EBV Early Antigen IgG <9.0 U/mL (0.0-8.9); EBV Nuclear Antigen IgG < 18.0 U/mL (0.0-17.9)
== END ==
PROVIDERS: Family Provider Family Medicine; PCP Family Medicine; Referring Provider Internal Medicine Cardiovascular Disease; Visit Provider Internal Medicine Cardiovascular Disease
DX: M79.10 Myalgia, unspecified site (principal); R50.9 Fever, unspecified; R53.83 Other fatigue
CPT/HCPCS: 36415; 86308; 86663; 86664; 86665

== ENCOUNTER → 2019-02-13 17:06 | Outpatient (CLI) | payer OTHER, SELFPAY ==
[2019-02-13 15:42] VITALS: BMI 24.3
== END ==
PROVIDERS: Family Provider Family Medicine; PCP Family Medicine; Referring Provider Nurse Practitioner Women's Health; Visit Provider Nurse Practitioner Women's Health
DX: R10.2 Pelvic and perineal pain (principal)
CPT/HCPCS: 87070; 87205

== ENCOUNTER → 2019-03-14 07:22 | Outpatient (CLI) | payer OTHER, SELFPAY ==
[2019-02-13 15:42] VITALS: BMI 24.3
[2019-03-14 09:03] LABS: AST(SGOT) 30 U/L (15-37); Alanine Aminotransfer ALT/SGPT 34 U/L (13-56); Albumin, Serum 4.1 g/dL (3.2-5.0); Alkaline Phosphatase 62 U/L (45-117); Bilirubin, Direct 0.29 mg/dL (0.00-0.30); Cholesterol 134 mg/dL (200); High Density Lipoprotein 54 mg/dL; Protein, Total 7.1 g/dL (6.4-8.2); Triglycerides 83 mg/dL; Very Low Density Lipoprotein 17 mg/dL (5-40)
== END ==
PROVIDERS: Family Provider Family Medicine; PCP Family Medicine; Referring Provider Internal Medicine Cardiovascular Disease; Visit Provider Internal Medicine Cardiovascular Disease
DX: E78.5 Hyperlipidemia, unspecified (principal)
CPT/HCPCS: 36415; 80061; 80076

== ENCOUNTER → 2019-03-28 14:12 | Outpatient (CLI) | payer OTHER, SELFPAY ==
[2019-03-15 10:29] VITALS: BMI 24.7
--- NOTE | 2019-03-28 14:13 | RAD_ITS ---
HISTORY: LOWER BACK/SCIATIC PAIN EXAMINATION/TECHNIQUE: XR Spine Lumbar Comp W/ Bending Min 6 Views: AP, bilateral obliques, neutral lateral, flexion lateral, extension lateral, and spot lateral of the lower lumbar spine. COMPARISON: A CT scan of the abdomen and pelvis with sagittal and coronal 2-D reformats is from January 11, 2018. FINDINGS: VERTEBRAE: Preserved vertebral body height. No fracture. anterior subluxation of L4 on L5 measures 7 mm in the extension view, 7 mm in the flexion view, and 6 mm on the coned-down lateral neutral image. Bony alignment otherwise is normal Degenerative changes of the posterior elements within the lower lumbar spine. Preservation of the normal lumbar lordosis. DISCS: Minimal degenerative changes. It is greatest in the lumbar spine. L4-L5 level. There is additional disease within the lower thoracic spine. All of this disease is similar to that demonstrated on the CT scan of January 11, 2018 watch was performed with the patient supine INCLUDED ABDOMEN: Cholecystectomy clips. Bowel gas pattern is normal. RAD/L/S Spine Comp/w Bending Views IMPRESSION: Stable appearance to anterior subluxation of L4 on L5 with degenerative disc disease and facet arthropathy. at 0239 Reported and signed by: Petar Altamirano MD Electronically Signed: Petar Altamirano MD at 2:34 EST Tel , Service support ,
--- NOTE | 2019-03-28 14:41 | RAD_ITS ---
HISTORY: Mid back and neck pain. 4 images of the cervical spine. No comparison imaging. Findings: Joint space narrowing is present at the C5-C6 and C6-C7 levels. C6 is retrolisthesis on C7 by 3 mm. Anterior enthesophytes are present at the C4-C5, C5-C6, and C6-C7 levels. Prevertebral and paraspinal soft tissues are normal. The odontoid is normal in its relationship to the lateral masses without fracture. Lung apices are clear. RAD/Cerv Spine 2 or 3 Views IMPRESSION: Mild degenerative disc disease at the C5-C6 and C6-C7 levels. No acute fracture perceived. at 0319 Reported and signed by: Petar Altamirano MD Electronically Signed: Petar Altamirano MD at 3:18 EST Tel , Service support ,
--- NOTE | 2019-03-28 14:45 | RAD_ITS ---
HISTORY: MID BACK/NECK PAIN COMPARISON: None FINDINGS: # of images incl. paperwork: 2 XR Spine Thoracic 3 Views: Thoracic vertebral bodies are normal in height. No acute thoracic spine fracture or subluxation. No significant degenerative change. RAD/Thoracic Spine 3 Views IMPRESSION: No acute thoracic spine fracture or subluxation. at 0322 Reported and signed by: Petar Altamirano MD Electronically Signed: Petar Altamirano MD at 3:21 EST Tel , Service support ,
== END ==
PROVIDERS: Family Provider Family Medicine; PCP Family Medicine; Referring Provider Orthopaedic Surgery; Visit Provider Orthopaedic Surgery
DX: M54.32 Sciatica, left side (principal)
CPT/HCPCS: 72040; 72072; 72114

== ENCOUNTER → 2019-03-30 06:57 | Outpatient (CLI) | payer OTHER, SELFPAY ==
[2019-03-15 10:29] VITALS: BMI 24.7
[2019-03-28 14:22] VITALS: BMI 24.7
--- NOTE | 2019-03-30 09:17 | STRESSREP_ITS ---
Stress Test Report Exercise myocardial perfusion stress test. 49-year-old lady with a history of coronary artery disease. Stress protocol: Resting EKG demonstrates normal sinus rhythm with a rate of 65 bpm normal intervals are noted resting blood pressures 126/80 mmHg. Patient exercised according to regular Sukh protocol for total duration of 12 minutes. Patient completed stage IV of the Sukh protocol the maximum heart rate attained was 162 bpm which was 94% of maximum predicted heart rate the maximum workload was 13.4 metabolic equivalents. Patient maintained sinus rhythm throughout the recording. The peak blood pressure was 152/74 with a rate pressure product of 24,300. No clinical angina was noted the test was terminated due to target he art rate being achieved. Myocardial perfusion protocol. 10.0 mCi of technetium 99m sestamibi was injected at rest. Patient exercised according to regular Sukh protocol for 12 minutes at peak exercise 30.0 mCi of technetium 99m sestamibi was injected stress images were obtained stress and rest images were reconstructed and compared in the short axis vertical long horizontal long axis. Gated images was obtained Perfusion SPECT analysis: Review of the stress images demonstrate normal uptake of tracer noted in all areas of the myocardium. The resting images demonstrate a similar pattern. No areas of reversibility are noted suggest ischemia and no previous infarct is noted. There is no transient ischemic dilatation noted. Gated SPECT analysis: The gated ejection fraction is noted to be 69%. Conclusion: Normal exercise myocardial perfusion stress test with no evidence of ischemia at a high workload. No clinical angina noted. No arrhythmias noted. Excellent functional capacity. Low risk stress test.
== END ==
PROVIDERS: Family Provider Family Medicine; PCP Family Medicine; Referring Provider Internal Medicine Cardiovascular Disease; Visit Provider Internal Medicine Cardiovascular Disease
DX: I25.10 Atherosclerotic heart disease of native coronary artery without angina pectoris (principal); Z95.1 Presence of aortocoronary bypass graft; Z95.5 Presence of coronary angioplasty implant and graft
CPT/HCPCS: 78452; 93017; A9500; A4216

== ENCOUNTER 2019-04-25 15:30 | Outpatient (RCR) | payer OTHER, SELFPAY ==
[2019-03-28 14:22] VITALS: BMI 24.7
--- NOTE | 2019-03-28 18:47 | HP.PTEVAL_ITS ---
Patient's Visit Information ABDIEL RICHARDSON is a 49 year old F referred to Physical Therapy by Viktor Fleming DO with a diagnosis of Sciatica (L4-L5 spondy), DJD cervical, thoracic spine. Date of Evaluation: 03/28/19 Physical Therapist: AGUSTÍN Bear - Visit Plan Frequency: 2-3x /Week Duration: 6 Weeks Plan: 2-3X/ week for 4-6 weeks for neutral spine core stability, MT to B mid trap, levator and L scapula region, postural exercises with HEP modalities as needed. - Subjective Findings: Pt has had a sciatic issue before and has never had any formal PT but stretched on her own. It came back last week after working out and she had some N&T down B legs and worse down the L. She wanted to get it checked out. She has pain between her shoulder blades for 2-3 months. She was recently diagnosed with Lupus and she CAD and has had some issues with that. Her heart symptoms are weird (pain down B shoulder blades and down her arms) and neck pain. She has been on plaquinol for over 3 months with constand pain between her shouder blades and get like a dull ache in mid trap area and down B arms that comes and goes. That bothers her more than her sciatic issue. She still feels the achiness betwen shoulder blades and traps and sometimes chalks it up to achiness. Dr Fleming said that she had DDD. Weight lifting: she does cross fit and does not do heavy weights. She does a lot of box jumps last week and then the N&T started which scares her. - Pain Back pain (low) Pain Intensity (Out of 10): 3 L leg pain Pain Intensity (Out of 10): 3 R leg pain Pain Intensity (Out of 10): 2 neck pain Pain Intensity (Out of 10): 3 between shoulder blades Pain Intensity (Out of 10): 4 - Objective C-spine AROM: Full ROM. UE AROM: full ROM. Trunk AROM: flex 100%, ext 10%, SB B 75%. LE MMT: 4/5 B hip flex, B knee ext, B knee flex, B hip abd. Pt sits with good posture. Palpation: pt had very tight levators and a palpable tightness just the L of the spine and behind the L scapula. - Goals Goal 1:: I HEP Goal Time Frame: 4-6 Weeks Goal 2:: Decrease pain in L-SPine and down the leg by 50% Goal Time Frame: 4-6 Weeks Goal 3:: Decrease scapula and mid trap and neck by 50% Goal Time Frame: 4-6 Weeks Goal 4:: Be able to return to working out without pain Goal Time Frame: 4-6 Weeks - Rehabilitation Potential Rehabilitation Potential: Good - Anticipated Interventions Patient/Client Instruction: Educate patient on: Condition, Plan of Care For the Purpose of:: To decrease pain, To increase ROM, To improve nutrient delivery to tissue, To improve muscle performance and motor function, To improve ability to perform ADL's, To increase tolerance to activity/condition/position, To improve performance and independence with ADL's, To improve ability of physical actions for home/community/work/leisure, To improve health of tissue, To decrease soft tissue restriction, To increase flexibility/ROM Therapeutic Exercise to Include: Strength training, Body mechanics, Postural training, Flexibilty training, Active ROM, Dynamic Lumbar Stabilization, Scapula r Strength/Stabilization For the Purpose of:: To decrease pain, To increase ROM, To improve nutrient delivery to tissue, To improve muscle performance and motor function, To improve ability to perform ADL's, To increase tolerance to activity/condition/position, To improve performance and independence with ADL's, To improve ability of physical actions for home/community/work/leisure, To improve health of tissue, To decrease soft tissue restriction Manual Therapy Techniques to Include: Functional dry needling, Soft tissue mobilization For the Purpose of:: To decrease pain, To improve nutrient delivery to tissue, To improve muscle performance and motor function, To improve ability to perform ADL's, To increase tolerance to activity/condition/position, To improve ability of physical actions for home/community/work/leisure, To improve health of tissue, To decrease soft tissue restriction, To increase flexibility/ROM IF ES: Yes Thermo therapy (hot pack): Yes Ultrasound (thermal/non thermal): Yes For the Purpose of:: To decrease pain, To increase ROM, To improve nutrient delivery to tissue Thank you for the opportunity to evaluate your patient. For Medicare and Medicare HMO plans, please review the plan of care and approve it. It will need to be FAXED BACK to us at [phone] for Medicare purposes. For Medicare only, by signing this I certify the plan of care. Please let me know if there are questions or concerns regarding this plan of care. Physician Signature: Date:
--- NOTE | 2019-07-03 12:25 | HP.PTDCNRP_ITS ---
ABDIEL RICHARDSON was seen in my office for initial evaluation on 03/28/19. The following Plan of Care was established for this patient: Initial Frequency: 2-3x /Week Initial Duration: 6 Weeks Patient/Client Instruction: Educate patient on: Condition, Plan of Care For the Purpose of:: To decrease pain, To increase ROM, To improve nutrient delivery to tissue, To improve muscle performance and motor function, To improve ability to perform ADL's, To increase tolerance to activity/condition/position, To improve performance and independence with ADL's, To improve ability of physical actions for home/community/work/leisure, To improve health of tissue, To decrease soft tissue restriction, To increase flexibility/ROM Therapeutic Exercise to Include: Strength training, Body mechanics, Postural training, Flexibilty training, Active ROM, Dynamic Lumbar Stabilization, Scapular Strength/Stabilization For the Purpose of:: To decrease pain, To increase ROM, To improve nutrient delivery to tissue, To improve muscle performance and motor function, To improve ability to perform ADL's, To increase tolerance to activity/condition/position, To improve performance and independence with ADL's, To improve ability of physical actions for home/community/work/leisure, To improve health of tissue, To decrease soft tissue restriction Manual Therapy Techniques to Include: Functional dry needling, Soft tissue mob ilization For the Purpose of:: To decrease pain, To improve nutrient delivery to tissue, To improve muscle performance and motor function, To improve ability to perform ADL's, To increase tolerance to activity/condition/position, To improve ability of physical actions for home/community/work/leisure, To improve health of tissue, To decrease soft tissue restriction, To increase flexibility/ROM IF ES: Yes Thermo therapy (hot pack): Yes Ultrasound (thermal/non thermal): Yes For the Purpose of:: To decrease pain, To increase ROM, To improve nutrient delivery to tissue This patient was last seen in our office 04/25/19. Pertinent comments regarding their Physical therapy will appear below: Pt did not come for her last PT appointment. DC PT At this point I will be discontinuing this patient from physical therapy. I would be happy to see this patient again in the future if found appropriate by the physician. Thank you! Senia Kraft, MPT
== END 2019-04-25 19:00 | disposition home or self-care (01) ==
LOC: PT 15:30
PROVIDERS: Family Provider Family Medicine; PCP Family Medicine; Visit Provider Orthopaedic Surgery
DX: M54.32 Sciatica, left side (principal); M47.892 Other spondylosis, cervical region; M54.6 Pain in thoracic spine
CPT/HCPCS: 97110; 97140; 97162

== ENCOUNTER → 2019-04-30 07:20 | Outpatient (CLI) | payer OTHER, SELFPAY ==
[2019-04-16 15:08] VITALS: BMI 24.7
--- NOTE | 2019-04-30 07:34 | MRI_ITS ---
STUDY: MR CHEST WITH T WITHOUT CONTRAST REASON FOR EXAM: Female, 49 years old. Swelling left anterior chest wall, BEST bypass 04/2018. TECHNIQUE: Standardized fat and water weighted pulse sequences were obtained in all 3 orthogonal planes, pre-and post contrast administration. IV Dotarem 12ml was administered for the contrast portion of the examination. Skin marker application. COMPARISON: X-ray dated December 18, 2018. FINDINGS: Nondiagnostic evaluation of the cardiac structures given soft tissue protocol. Left internal mamillary artery bypass with postsurgical changes at the left chest wall (axial images 13 through 21 series 9 and coronal image 15 series 10). Normal caliber of the aorta and visualized vessels. Normal caliber of the visualized pulmonary arteries. No abnormal/unexpected contrast enhancement. No solid, cystic or lipomatous soft tissue lesions. Visualized clavicles intact. Visualized ribs intact. Visualized shoulders intact. Normal sternoclavicular joints. No acute lung abnormality given soft tissue protocol. Nondiagnostic breast evaluation given soft tissue technique. MRI/Chest W/WO Contrast IMPRESSION: No acute soft tissue process No acute fracture, dislocation or bone destruction No abnormal/some expected contrast enhancement Nondiagnostic cardiac, breast and lung evaluations given soft tissue protocol Electronically Signed: Yuan Diaz DO at 9:39 EST Tel , Service support ,
== END ==
PROVIDERS: Family Provider Family Medicine; PCP Family Medicine; Referring Provider Orthopaedic Surgery; Visit Provider Orthopaedic Surgery
DX: R22.2 Localized swelling, mass and lump, trunk (principal)
CPT/HCPCS: 71552; A9575

== ENCOUNTER → 2019-09-13 07:37 | Outpatient (CLI) | payer OTHER, SELFPAY ==
[2019-04-16 15:08] VITALS: BMI 24.7
[2019-09-13 08:12] LABS: Color, Urine Yellow (Yellow); Glucose, Dipstick Normal (Normal); Ketone-Dipstick Negative (Negative); Leukocyte Esterase-Dipstick 25 /ul (Negative); Nitrite-Dipstick Negative (Negative); Occult Blood-Urine 50 /ul (Negative); Protein-Dipstick 15 mg/dl (Negative); Specific Gravity, Urine 1.025 (1.002-1.030); Urine Bilirubin Dipstick Negative (Negative); Urine Clarity Sl. Cloudy (Clear); Urine Urobilinogen Normal (Normal)
[2019-09-13 08:15] LABS: Erythrocyte Sedimentation Rate < 1 mm/hr (0-20)
[2019-09-13 08:16] LABS: Absolute Lymphocyte Count 0.62 X10^3/uL (0.83-4.51); Absolute Neutrophil Count 2.7 X10^3/uL (2.0-7.7); Basophil# 0.03 X10^3/uL; Basophil% 0.8 % (0-1); Eosinophil# 0.04 X10^3/uL; Eosinophils% 1.1 % (0-5); Hematocrit 40.6 % (37-47); Hemoglobin 13.6 g/dL (12.0-15.0); Lymphocyte # 0.62 X10^3/ul (4.0); Lymphocyte % 16.4 % (19-41); Mean Corp Hgb Conc 33.5 g/dL (32-36); Mean Corpuscular Hgb 33.3 pg (27.0-32.0); Mean Corpuscular Volume 99.5 fL (81-99); Mean Platelet Vol. 8.9 fl (6.2-12.0); Monocyte% 10.6 % (0-10); NRBC Flagged by Analyzer 0 % (0-5); Neutrophil # 2.69 X10^3/uL (2.7-7.7); Neutrophil % 70.8 % (47-70); Platelet Count 284 K/mm3 (150-450); Red Blood Count 4.08 M/mm3 (4.2-5.4); White Blood Count 3.8 K/mm3 (4.4-11.0)
[2019-09-13 08:31] LABS: AST(SGOT) 24 U/L (15-37); Alanine Aminotransfer ALT/SGPT 31 U/L (13-56); Albumin, Serum 3.9 g/dL (3.2-5.0); Alkaline Phosphatase 65 U/L (45-117); Bilirubin, Direct 0.24 mg/dL (0.00-0.30); Cholesterol 109 mg/dL (200); Globulin 3.1 g/dL (2.2-4.2); High Density Lipoprotein 42 mg/dL; Triglycerides 60 mg/dL; Very Low Density Lipoprotein 12 mg/dL (5-40)
[2019-09-13 08:43] LABS: BUN 11 mg/dL (7-18); CRP < 2.90 mg/L (0.0-3.0); EST Glomerular Filtration Rate 94 mL/min (>60); Est Glom Filt Rate - Afr Amer 114 mL/min (>60)
[2019-09-15 15:52] LABS: Anti-dsDNA Ab 12 IU/mL (0-9)
[2019-09-15 15:53] LABS: Complement C3 89 mg/dL (82-167)
== END ==
PROVIDERS: Internal Medicine Cardiovascular Disease; PCP Family Medicine
DX: L93.1 Subacute cutaneous lupus erythematosus (principal); E78.5 Hyperlipidemia, unspecified; R76.8 Other specified abnormal immunological findings in serum; R21 Rash and other nonspecific skin eruption
CPT/HCPCS: 36415; 80061; 80076; 81002; 82565; 84520; 85025; 85652; 86140; 86160; 86225

== ENCOUNTER → 2019-09-25 12:44 | Outpatient (CLI) | payer OTHER, SELFPAY ==
[2019-09-13 15:59] VITALS: BMI 24.1
[2019-09-25 13:10] LABS: Color, Urine Yellow (Yellow); Glucose, Dipstick Normal (Normal); Ketone-Dipstick Negative (Negative); Leukocyte Esterase-Dipstick Negative /ul (Negative); Nitrite-Dipstick Negative (Negative); Occult Blood-Urine 25 /ul (Negative); Protein-Dipstick Negative (Negative); Urine Bilirubin Dipstick Negative (Negative); Urine Clarity Clear (Clear); Urine Urobilinogen Normal (Normal)
== END ==
PROVIDERS: PCP Family Medicine
DX: M32.9 Systemic lupus erythematosus, unspecified (principal)
CPT/HCPCS: 81002

== ENCOUNTER → 2019-11-30 09:50 | Outpatient (CLI) | payer OTHER, SELFPAY ==
[2019-09-13 15:59] VITALS: BMI 24.1
[2019-11-30 10:32] LABS: Color, Urine Straw (Yellow); Glucose, Dipstick Normal (Normal); Ketone-Dipstick Negative (Negative); Leukocyte Esterase-Dipstick Negative /ul (Negative); Nitrite-Dipstick Negative (Negative); Occult Blood-Urine 10 /ul (Negative); Protein-Dipstick Negative (Negative); Specific Gravity, Urine 1.005 (1.002-1.030); Urine Bilirubin Dipstick Negative (Negative); Urine Clarity Clear (Clear); Urine Urobilinogen Normal (Normal); Urine pH 6.5 (5.0 - 8.0)
[2019-11-30 10:47] LABS: Protein, Urine (Random) < 6.0 mg/dL (<11.9)
== END ==
PROVIDERS: PCP Family Medicine
DX: M32.9 Systemic lupus erythematosus, unspecified (principal)
CPT/HCPCS: 81002; 82570; 84156

== ENCOUNTER → 2019-12-11 07:48 | Outpatient (CLI) | payer OTHER, SELFPAY ==
[2019-09-13 15:59] VITALS: BMI 24.1
--- NOTE | 2019-12-11 07:48 | BI_ITS ---
MAMMOGRAPHY - BILATERAL SCREENING REASON FOR EXAM: Female, 49 years old. Routine annual screening examination. PERTINENT HISTORY: Non-contributory. TECHNIQUE: Digital bilateral breast yue (3D mammographic acquisition) in the CC and MLO projections. 2-D mediolateral oblique (MLO) and craniocaudad (CC) views of both breasts were obtained. CAD: Full Field Digital Mammography with Computer Added Detection was performed. COMPARISON: Comparison is made with prior study dated 12/06/2018 and 06/07/2017. FINDINGS: Breast Composition: The breasts are extremely dense, which lowers the sensitivity of mammography. There are no dominant masses or suspicious calcifications. Stable benign-appearing bilateral axillary lymph nodes. No other significant abnormalities are identified. There has been no significant change since the prior study. BI/SCREEN MAMM (CAD) W/YUE BILAT IMPRESSION: Stable bilateral screening mammogram. Yearly follow-up mammogram recommended. (A) ASSESSMENT CATEGORY: BIRADS Category 2: Benign. A letter regarding these results will be sent to the patient by the facility within 30 days. Approximately 10% of breast cancers are not detected by mammography. A normal mammogram should not delay biopsy of a clinically suspicious abnormality. [id number] Electronically Signed: Garrett Reed, at 9:10 EDT , Service support ,
== END ==
PROVIDERS: PCP Family Medicine; Referring Provider Nurse Practitioner Women's Health; Visit Provider Nurse Practitioner Women's Health
DX: Z12.31 Encounter for screening mammogram for malignant neoplasm of breast (principal)
CPT/HCPCS: 77063; 77067

== ENCOUNTER → 2020-01-14 07:19 | Outpatient (CLI) | payer OTHER, SELFPAY ==
[2019-12-11 08:53] VITALS: BMI 24.1
--- NOTE | 2020-01-14 07:20 | CT_ITS ---
STUDY: CT ABDOMEN AND PELVIS WITH AND WITHOUT CONTRAST REASON FOR EXAM: Female, 50 years old. HEMATURIA, CHOLECYSTECTOMY RADIATION DOSAGE (If Supplied By Facility): CTDIvol = ( 10.31 ) mGy, DLP = ( 1377.43 ) mGycm TECHNIQUE: Transaxial images were obtained from the dome of the diaphragm to the symphysis pubis without oral contrast. IV 100mL Isovue-300 was administered. Sagittal and coronal images were reconstructed. Individualized dose optimization techniques were used for this CT. COMPARISON: None. FINDINGS: The visualized lung bases are unremarkable. The visualized portions of the heart are within normal limits. Normal liver. There are surgical clips in the gallbladder fossa consistent with a prior cholecystectomy. Normal spleen. Normal pancreas. Normal bilateral adrenal glands. Normal right kidney. There is a stone in the left kidney measures 3 mm without hydronephrosis. Normal visualized stomach. Normal small intestine. Normal colon. The appendix is visualized and appears normal. Normal abdominal aorta. Normal inferior vena cava. Normal retroperitoneum. Normal urinary bladder. Normal abdominal wall. There are diffuse degenerative changes of the visualized lumbar spine. CT/CT Abd/Pelvis W/WO Contrast IMPRESSION: There is a stone in the left kidney measures 3 mm without hydronephrosis. Electronically Signed: Eduar Mayorga, at 9:16 EDT Tel , Service support ,
== END ==
PROVIDERS: PCP Family Medicine; Referring Provider Urology; Visit Provider Urology
DX: R31.9 Hematuria, unspecified (principal)
CPT/HCPCS: 74178; Q9967

== ENCOUNTER → 2020-06-20 07:02 | Outpatient (CLI) | payer OTHER, SELFPAY ==
[2019-12-11 08:53] VITALS: BMI 24.1
[2020-06-20 08:11] LABS: Color, Urine Yellow (Yellow); Glucose, Dipstick Normal (Normal); Ketone-Dipstick 5 mg/dl (Negative); Leukocyte Esterase-Dipstick 25 /ul (Negative); Nitrite-Dipstick Negative (Negative); Occult Blood-Urine 50 /ul (Negative); Protein-Dipstick Negative (Negative); Urine Bilirubin Dipstick Negative (Negative); Urine Clarity Sl. Cloudy (Clear); Urine Urobilinogen Normal (Normal)
[2020-06-20 08:40] LABS: AST(SGOT) 24 U/L (15-37); Alanine Aminotransfer ALT/SGPT 34 U/L (13-56); Alkaline Phosphatase 67 U/L (45-117); BUN 10 mg/dL (7-18); CRP < 2.90 mg/L (0.0-3.0); EST Glomerular Filtration Rate 81 mL/min (>60); Est Glom Filt Rate - Afr Amer 98 mL/min (>60); Globulin 2.9 g/dL (2.2-4.2); Protein, Total 6.9 g/dL (6.4-8.2)
[2020-06-20 08:48] LABS: Absolute Lymphocyte Count 0.82 X10^3/uL (0.83-4.51); Basophil# 0.04 X10^3/uL; Basophil% 0.9 % (0-1); Eosinophil# 0.07 X10^3/uL; Eosinophils% 1.6 % (0-5); Hematocrit 43.3 % (37-47); Hemoglobin 14.4 g/dL (12.0-15.0); Lymphocyte # 0.82 X10^3/ul (4.0); Lymphocyte % 18.4 % (19-41); Mean Corp Hgb Conc 33.3 g/dL (32-36); Mean Corpuscular Hgb 33.7 pg (27.0-32.0); Mean Corpuscular Volume 101.4 fL (81-99); Mean Platelet Vol. 9.4 fl (6.2-12.0); Monocyte# 0.47 X10^3/uL; Monocyte% 10.6 % (0-10); NRBC Flagged by Analyzer 0 % (0-5); Neutrophil # 3.03 X10^3/uL (2.7-7.7); Neutrophil % 68.1 % (47-70); Platelet Count 281 K/mm3 (150-450); RBC Distribution Width CV 12.1 % (11.6-14.6); RBC Distribution Width SD 45.4 fl (35.1-43.9); Red Blood Count 4.27 M/mm3 (4.2-5.4); White Blood Count 4.5 K/mm3 (4.4-11.0)
[2020-06-20 08:49] LABS: Erythrocyte Sedimentation Rate 1 mm/hr (0-30)
[2020-06-21 14:42] LABS: Complement C3 95 mg/dL (82-167)
[2020-06-23 07:32] LABS: Anti-dsDNA Ab 9 IU/mL (0-9)
== END ==
PROVIDERS: PCP Family Medicine
DX: L93.1 Subacute cutaneous lupus erythematosus (principal)
CPT/HCPCS: 36415; 80076; 81002; 82565; 84520; 85025; 85652; 86140; 86160; 86225; 87086

== ENCOUNTER → 2020-08-25 11:35 | Outpatient (CLI) | payer OTHER, SELFPAY ==
[2019-12-11 08:53] VITALS: BMI 24.1
[2020-08-25 12:53] LABS: Absolute Lymphocyte Count 0.71 X10^3/uL (0.83-4.51); Absolute Neutrophil Count 2.9 X10^3/uL (2.0-7.7); Basophil# 0.04 X10^3/uL; Eosinophil# 0.06 X10^3/uL; Eosinophils% 1.4 % (0-5); Hematocrit 40.2 % (37-47); Hemoglobin 13.6 g/dL (12.0-15.0); Lymphocyte # 0.71 X10^3/ul (0.83-4.51); Lymphocyte % 17.1 % (19-41); Mean Corp Hgb Conc 33.8 g/dL (32-36); Mean Corpuscular Hgb 32.6 pg (27.0-32.0); Mean Corpuscular Volume 96.4 fL (81-99); Mean Platelet Vol. 9.3 fl (6.2-12.0); Monocyte# 0.45 X10^3/uL; Monocyte% 10.8 % (0-10); NRBC Flagged by Analyzer 0 % (0-5); Neutrophil # 2.89 X10^3/uL (2.7-7.7); Neutrophil % 69.7 % (47-70); Platelet Count 274 K/mm3 (150-450); RBC Distribution Width CV 11.9 % (11.6-14.6); RBC Distribution Width SD 42.6 fl (35.1-43.9); Red Blood Count 4.17 M/mm3 (4.2-5.4); White Blood Count 4.2 K/mm3 (4.4-11.0)
[2020-08-25 13:34] LABS: Anion Gap 5 (5-15); BUN 8 mg/dL (7-18); BUN/Creat Ratio 12.8 RATIO (10-20); CRP, High Sensitivity Cardiac < 0.16 mg/L; Calcium,Total 8.9 mg/dL (8.5-10.1); Chloride 104 mmol/L (98-107); Creatinine, Serum 0.63 mg/dL (0.55-1.02); EST Glomerular Filtration Rate 107 mL/min (>60); Est Glom Filt Rate - Afr Amer 129 mL/min (>60); Glucose 99 mg/dL (74-106); Potassium 4.2 mmol/L (3.5-5.1); Sodium Level 137 mmol/L (136-145)
== END ==
PROVIDERS: PCP Family Medicine; Referring Provider Internal Medicine Cardiovascular Disease; Visit Provider Internal Medicine Cardiovascular Disease
DX: I25.119 Atherosclerotic heart disease of native coronary artery with unspecified angina pectoris (principal); R07.9 Chest pain, unspecified; E78.5 Hyperlipidemia, unspecified; Z95.1 Presence of aortocoronary bypass graft; Z95.5 Presence of coronary angioplasty implant and graft
CPT/HCPCS: 36415; 80048; 84484; 85025; 86141

== ENCOUNTER 2020-08-29 06:47 | Day surgery (SDC) | payer OTHER, SELFPAY ==
[2020-08-26 08:28] VITALS: BMI 25.7
[2020-08-28 09:31] VITALS: BMI 25.7
--- NOTE | 2020-08-28 10:05 | RAD_ITS ---
STUDY: X-RAY CHEST REASON FOR EXAM: Female, 50 years old. Chest pain TECHNIQUE: PA and lateral views of the chest. COMPARISON: 12/18/2018 FINDINGS: The lungs are clear and expanded. There is no demonstrated pleural abnormality. Normal size heart. Normal mediastinum and parul. Normal visualized pulmonary arteries. Normal visualized aortic arch and descending thoracic aorta. Normal visualized thoracic spine. Normal visualized ribs, clavicles, and shoulders. There is no demonstrated abnormality of the visualized soft tissue structures of the upper abdomen. RAD/Chest PA and Lateral IMPRESSION: Normal x-ray examination of the chest. Electronically Signed: Aguilar Whitfield MD at 10:24 EDT , Service support ,
[2020-08-28 10:48] LABS: Internal QC Validated? YES +Cl - CLEAR BKGD; Pregnancy, Urine Negative Negative
--- NOTE | 2020-08-29 08:25 | CL.D_ITS ---
Patient Name: ABIDEL RICHARDSON Study Date: 08/29/2020 Performing: Bry Pelaez MD Ht: 61.02 inches 155 cm : 1970 Wt: 136.69 lbs 62 kg Age: 50 Gender: female BSA: 1.61 PROCEDURE(S) PERFORMED TU38-JTH/COR/LV CLINICAL PROFILE AND INDICATIONS Indications: Worsening Angina Heart Failure: None Stress/Imaging Stress/Image Study Performed: No CAD Presentations: Unstable angina. CONCLUSIONS Previously placed stent in the left anterior descending artery across the ostium and the proximal to mid segments appeared to be patent, the left circumflex artery has mild to moderate disease noted in the proximal segment which is unchanged from prior, and the right coronary artery has no significant stenosis. RECOMMENDATIONS Medical therapy DESCRIPTION OF PROCEDURE The patient arrived to the procedure lab. The risks and benefits of the procedure as well as a full d escription of our services here and current unavailability of surgical backup were fully explained to the patient and/or their significant other prior to the catheterization. The Timeout was completed, verifying the correct patient and procedure. The patient's procedural site was prepped and draped in the usual fashion. Local anesthetic was given subcutaneously to right radial region with Lidocaine 2% . Using a modified Seldinger technique, arterial access was obtained via the right radial artery, a 6 Fr sheath was inserted. Right Coronary Artery selective angiography was then performed in multiple v iews using a 5 Fr. 4.0 Sherwood catheter. Left Coronary Artery selective angiography was performed in mu ltiple views using a 5 Fr. 4.0 Sherwood catheter. Left Coronary Artery selective angiography was perform ed in multiple views using a 5 Fr. JL3.5 catheter. Left Ventriculography was performed in MANRIQUEZ projection using a 5 Fr. Pigtail catheter. LV to AO pullback pressures were then recorded.The art erial sheath was pulled and a TR Band was applied for hemostasis 8CC AIR CORONARY ANGIOGRAPHY DOMINANCE: Right Dominant LEFT HEART ASSESSMENT Left Ventricular Ejection Fraction: by LV Gram 60 % Normal LV wall motion Normal Left Ventricular systolic function LEFT MAIN: Angiographically normal LEFT ANTERIOR DESCENDING ARTERY: PROX LAD: Previously placed stent is patent MID LAD: Previously placed stent is patent DISTAL LAD: Competitive flow seen coming via BEST into a septal fiber designer which is distal to a 70% s tenosis. CIRCUMFLEX ARTERY: PROX CIRC: Diffusely diseased up to 40 % RIGHT CORONARY ARTERY: No significant disease noted COMPLICATIONS No Complications PROCEDURE MEDICATIONS Fentanyl 50 mcg IV Versed 1 mg IV Versed 1 mg IV Versed 1 mg IV Oxygen: 2 L/min via nasal cannula Heparin given IA 08/29/2020 07:47:23 Verapamil 2.5mg, Ntg 100mcgs, 3000 units of Heparin given IA 08/29/2020 07:47:23 SUMMARY OF HEMODYNAMIC DATA Time AIR REST ECG 07:06:04 AO 114/82 (99) SA 07:50:14 LV 122/2, 16 08:04:16 LV 137/4, 18 08:04:24 LVp 153/70, 75 08:04:39 AOp 119/38 (69) 08:04:44 LV 137/9, 20 08:05:00 LV 125/8, 21 08:05:06 Signed By Bry Pelaez MD On 08/29/2020 08:24:00 Bry Pelaez MD
== END 2020-08-29 10:25 | disposition home or self-care (01) ==
LOC: CLSP 06:47
PROVIDERS: PCP Family Medicine; Referring Provider Internal Medicine Cardiovascular Disease; Visit Provider Internal Medicine Cardiovascular Disease
DX: R07.9 Chest pain, unspecified (principal); M54.2 Cervicalgia; R68.84 Jaw pain; L93.0 Discoid lupus erythematosus; T50.905A Adverse effect of unspecified drugs, medicaments and biological substances, initial encounter; Y92.9 Unspecified place or not applicable; K51.90 Ulcerative colitis, unspecified, without complications; E78.5 Hyperlipidemia, unspecified; Z79.02 Long term (current) use of antithrombotics/antiplatelets; Z79.82 Long term (current) use of aspirin; Z79.899 Other long term (current) drug therapy; Z95.1 Presence of aortocoronary bypass graft; Z95.5 Presence of coronary angioplasty implant and graft
CPT/HCPCS: 71046; 81025; 93458; 99152; 99153; J7040; Q9967; C1769; C1894

== ENCOUNTER → 2020-09-22 07:16 | Outpatient (CLI) | payer OTHER, SELFPAY ==
[2019-12-11 08:53] VITALS: BMI 24.1
[2020-08-28 09:31] VITALS: BMI 25.7
[2020-09-22 07:25] LABS: Mucous, Urine 0 SEEN /hpf (<or=2+); Red Blood Cells-Urine 0 SEEN /hpf (0-5)
[2020-09-22 08:48] LABS: Color, Urine Yellow (Yellow); Glucose, Dipstick Normal (Normal); Ketone-Dipstick Negative (Negative); Leukocyte Esterase-Dipstick 25 /ul (Negative); Nitrite-Dipstick Negative (Negative); Occult Blood-Urine 25 /ul (Negative); Protein-Dipstick 30 mg/dl (Negative); Specific Gravity, Urine 1.025 (1.002-1.030); Urine Bilirubin Dipstick Negative (Negative); Urine Clarity Clear (Clear); Urine Urobilinogen 1 mg/dl (Normal)
[2020-09-22 08:50] LABS: Absolute Lymphocyte Count 0.87 X10^3/uL (0.83-4.51); Absolute Neutrophil Count 2.8 X10^3/uL (2.0-7.7); Basophil# 0.03 X10^3/uL; Basophil% 0.7 % (0-1); Eosinophil# 0.08 X10^3/uL; Eosinophils% 1.9 % (0-5); Hematocrit 39.8 % (37-47); Hemoglobin 13.5 g/dL (12.0-15.0); Lymphocyte # 0.87 X10^3/ul (0.83-4.51); Lymphocyte % 20.6 % (19-41); Mean Corp Hgb Conc 33.9 g/dL (32-36); Mean Corpuscular Hgb 32.9 pg (27.0-32.0); Mean Corpuscular Volume 97.1 fL (81-99); Mean Platelet Vol. 9.2 fl (6.2-12.0); Monocyte# 0.45 X10^3/uL; Monocyte% 10.7 % (0-10); NRBC Flagged by Analyzer 0 % (0-5); Neutrophil # 2.78 X10^3/uL (2.7-7.7); Neutrophil % 65.9 % (47-70); Platelet Count 265 K/mm3 (150-450); RBC Distribution Width CV 12.1 % (11.6-14.6); RBC Distribution Width SD 43.2 fl (35.1-43.9); White Blood Count 4.2 K/mm3 (4.4-11.0)
[2020-09-22 08:56] LABS: Bacteria 1+ /hpf (None Seen); Squamous Epithelial Cells - UA 0-5 SEEN /hpf (5-10); White Blood Cells 0-5 SEEN /hpf (0-5)
[2020-09-22 09:17] LABS: AST(SGOT) 27 U/L (15-37); Alanine Aminotransfer ALT/SGPT 29 U/L (13-56); Alkaline Phosphatase 64 U/L (45-117); BUN 9 mg/dL (7-18); Bilirubin, Direct 0.16 mg/dL (0.00-0.30); CRP < 2.90 mg/L (0.0-3.0); Globulin 2.8 g/dL (2.2-4.2); Protein, Total 6.8 g/dL (6.4-8.2)
[2020-09-22 09:32] LABS: Creatinine, Serum 0.76 mg/dL (0.55-1.02); EST Glomerular Filtration Rate 85 mL/min (>60); Est Glom Filt Rate - Afr Amer 103 mL/min (>60)
[2020-09-22 09:59] LABS: Erythrocyte Sedimentation Rate 2 mm/hr (0-30)
[2020-09-23 11:16] LABS: Complement C3 94 mg/dL (82-167)
[2020-09-24 13:26] LABS: Anti-dsDNA Ab 8 IU/mL (0-9)
== END ==
LOC: LAB.FUTURE 07:16 → LAB 07:17
PROVIDERS: PCP Family Medicine
DX: L93.1 Subacute cutaneous lupus erythematosus (principal)
CPT/HCPCS: 36415; 80076; 81001; 82565; 84520; 85025; 85652; 86140; 86160; 86225

== ENCOUNTER → 2020-12-12 13:55 | Outpatient (CLI) | payer OTHER, SELFPAY ==
--- NOTE | 2020-12-12 13:57 | BI_ITS ---
MAMMOGRAPHY - BILATERAL SCREENING 3-D TOMOSYNTHESIS REASON FOR EXAM: Female, 50 years old. screening PERTINENT HISTORY: No significant family history. TECHNIQUE: 2-D mammograms and 3-D Tomosynthesis of the breast (s) were performed. CAD was performed. COMPARISON: 12/11/2019 FINDINGS: The breast composition is Extermely dense tissue. Scattered benign calcifications are seen. No dense spiculated masses or suspicious microcalcifications are identified. No architectural distortion is identified. There is no skin thickening or retraction. There has been no significant change since the prior study. BI/SCRN MAMM (CAD)W/YUE BILAT IMPRESSION: No mammographic signs of malignancy. Routine yearly mammograms recommended. ASSESSMENT CATEGORY: BIRADS Category 1: Negative. A letter regarding these results will be sent to the patient by the facility within 30 days. FOLLOW UP RECOMMENDATION: Yearly follow up mammogram recommended. (A) Approximately 10% of breast cancers are not detected by mammography. A normal mammogram should not delay biopsy of a clinically suspicious abnormality. Electronically Signed: Matt Manzano MD at 14:46 EDT Tel , Service support ,
== END ==
PROVIDERS: PCP Family Medicine; Referring Provider Obstetrics & Gynecology; Visit Provider Obstetrics & Gynecology
DX: Z12.31 Encounter for screening mammogram for malignant neoplasm of breast (principal)
CPT/HCPCS: 77063; 77067

== ENCOUNTER → 2020-12-22 06:35 | Outpatient (CLI) | payer OTHER, SELFPAY ==
[2020-12-22 08:04] LABS: Vitamin D,25 Hydroxy 33.5 ng/mL
== END ==
PROVIDERS: PCP Family Medicine; Referring Provider Internal Medicine Cardiovascular Disease; Visit Provider Internal Medicine Cardiovascular Disease
DX: K51.90 Ulcerative colitis, unspecified, without complications (principal); Z11.52 Encounter for screening for COVID-19; Z20.822 Contact with and (suspected) exposure to COVID-19; M32.9 Systemic lupus erythematosus, unspecified; I25.119 Atherosclerotic heart disease of native coronary artery with unspecified angina pectoris; R03.0 Elevated blood-pressure reading, without diagnosis of hypertension; R07.9 Chest pain, unspecified; E78.00 Pure hypercholesterolemia, unspecified; Z95.1 Presence of aortocoronary bypass graft; Z95.5 Presence of coronary angioplasty implant and graft
CPT/HCPCS: 36415; 82306

== ENCOUNTER 2021-01-05 06:01 | Day surgery (SDC) | payer OTHER, SELFPAY ==
[2021-01-05] VITALS (7 sets, daily range): BP systolic 82–125; BP diastolic 52–71; PULSE 71–89; RESP 16; TEMP 36.3–36.6; O2SAT 99–100; BMI 24.6
--- NOTE | 2021-01-05 | COLBX_PTH ---
PATIENT: ABDIEL RICHARDSON LOC: EN U#:[id number] AGE/SX: 50/F ROOM: RE01/05/[address]: Dr. Lb Sands DO : 1970 BED: DIS: 01/05/2021 SPEC #: [id number] RECD: 01/05/21 12:07 STATUS: JONATHAN REMima #: [id number] ADRIANNA: 01/05/21 00:[address]: Lb Sands DEPT: SURGICAL PATHOLOGY RECD BY: Nils Ascencio ENTERED: 01/05/21 12:08 SP TYPE: COLON BX OT DR: Dr. Kenzie Torrez DO Tissues: A - Ileum, NOS B - Ascending colon C - Transverse colon D - Descending colon E - Sigmoid colon biopsy F - Sigmoid colon biopsy G - Rectum, NOS Procedures: Surgery Specimen Level IV HEADER OPERATION: Colonoscopy (MAC) PRE-OP DIAGNOSIS: Ulcerative colitis TISSUE SUBMITTED: A ? Terminal ileum biopsy, B ? Ascending biopsy, C ? Transverse biopsy, D ? Descending biopsy, E ? Sigmoid polyp, F ? Sigmoid polyp biopsy, G ? Rectum biopsy MICROSCOPIC DIAGNOSIS A. Terminal ileum, biopsy: No pathologic change. B. Ascending colon, biopsy: No pathologic change. C. Transverse colon, biopsy: No pathologic change. D. Descending colon, biopsy: No pathologic change. E. Sigmoid colon polyp, biopsy: Polypoid fragments of benign colonic mucosa. See comment. F. Sigmoid colon polyp, biopsy: Colonic mucosa with focal hyperplastic change. G. Rectum, biopsy: Chronic mucosa with focal hyperplastic change. AM:bethany 01/06/2021 COMMENT E. Neither hyperplastic nor adenomatous change is identified. Clinical correlation is suggested. MICROSCOPIC DESCRIPTION Slides are reviewed. GROSS DESCRIPTION A - Received in fixative is one container labeled with the patient's name and designated terminal ileum. The specimen consists of multiple irregular fragments of light gann soft tissue that in aggregate measure 0.6 x 0.2 x 0.1 cm. The specimen is totally submitted in one cassette. B - Received in fixative is one container labeled with the patient's name and designated ascending biopsy. The specimen consists of multiple irregular fragments of light gann soft tissue that in aggregate measure 1 x 0.5 x 0.1 cm. The specimen is totally submitted in one cassette. C - Received in fixative is one container labeled with the patient's name and designated transverse biopsy. The specimen consists of multiple irregular fragments of light gann soft tissue that in aggregate measure 1 x 0.3 x 0.1 cm. The specimen is totally submitted in one cassette. D - Received in fixative is one container labeled with the patient's name and designated descending biopsy. The specimen consists of multiple irregular fragments of light gann soft tissue that in aggregate measure 1.2 x 0.4 x 0.1 cm. The specimen is totally submitted in one cassette. E - Received in fixative is one container labeled with the patient's name and designated sigmoid biopsy. The specimen consists of multiple irregular fragments of light gann soft tissue that in aggregate measure 1 x 0.5 x 0.1 cm. The specimen is totally submitted in one cassette. F - Received in fixative is one container labeled with the patient's name and designated sigmoid polyp biopsy. The specimen consists of one irregular fragment of light gann soft tissue that measures 0.2 x 0.2 x 0.1 cm. The specimen is totally submitted in one cassette. G - Received in fixative is one container labeled with the patient's name and designated rectum biopsy. The specimen consists of two irregular fragments of light gann soft tissue that in aggregate measure 0.5 x 0.2 x 0.1 cm. The specimen is totally submitted in one cassette. / SJ:rg 01/05/21 TC:5 CPT: 10277 x7
[2021-01-05 06:38] LABS: Internal QC Validated? YES +Cl - CLEAR BKGD; Pregnancy, Urine Negative Negative
[2021-01-05] MEDS: Lactated Ringers 1,000 ML 100 ML IV (06:40)
--- NOTE | 2021-01-05 07:01 | HP.PCM_ITS ---
HPI - General HPI Narrative \ HPI HPI Chief Complaint: Follow up Details: ABDIEL RICHARDSON, is a 50 F who presents to the office today for the evaluation of ulcerative colitis. She has a 20-year history of ulcerative colitis. She states that her ulcerative colitis is mostly left-sided disease. She has failed steroid therapy in the past. Fortunately she was able to be stabilized on Imuran therapy. Unfortunately since her diagnosis of ulcerative colitis she was diagnosed with CAD and has undergone PTCA with 2 stents and CABG. Her last cardiac catheterization 2 months ago did not show any signs of in-stent thrombosis. Her last echocardiogram had showed normal cardiac function. She also was diagnosed with lupus erythematosus after developing pericarditis status post CABG. Her lupus is under control with Plaquenil. At this time she is not having any problems with lower GI bleeding or diarrhea. On occasion she does have tenesmus. She denies any cramping. She denies any chest pain or shortness of breath. She denies any nausea. She eats a well-balanced diet that is mostly anti-inflammatory in nature. She has no history of complications from her lupus, such as arthritis, arthralgia, eye findings or thrombosis. ROS Const Constitutional: No anorexia, fatigue, fever(s), weight change or sleep problems Eyes Eyes: No change in vision ENT ENT: No abnormal hearing, difficulty swallowing, mouth lesions, tongue swelling or throat swelling Resp Respiratory: No cough or shortness of breath Cardio Cardiology: No chest pain at rest, chest pain with exertion, shortness of breath or dyspnea on exertion Gastro GI: No abdominal pain, bloating, change in bowel habits, change in stool character, coffee ground emesis, constipation, cramping, diarrhea, heartburn, difficulty swallowing, feeling full early, excessive flatus, incontinent of stools, Vomiting blood/hematemesis, Blood in stool, loose stools, Black,tarry stools, nausea/dyspepsia, pain with swallowing or vomiting Genitourinary-Female: No difficulty urinating or burning urination Musc Musculoskeletal: No joint pain, joint swelling, muscle weakness or decreased muscle mass Skin Skin: No hair loss in leg, yellowing of the eye, itchy eyes, rash, skin ulcer or skin swelling Neuro Neurology: No abnormal hearing, abnormal movements, confusion, unsteady gai t/balance or memory loss Psych Psychiatric: No anxiety, No confusion and No memory loss Endo Endocrine: No fatigue or weight change Aller/Imm Allergy/Immunologic: No itchy eyes, throat swelling or tongue swelling Vlad/Lymp Hematologic/Lymphatic: No easy bleeding, easy bruising or enlarged lymph nodes Exam Const General: cooperative and comfortable Nutritional Appearance: average body habitus and well nourished [facility] Head: normal to inspection Ears: hearing grossly normal bilaterally Nose: external nose normal Face and sinus: normal facial exam Mouth: oral mucosae normal Throat: posterior oropharynx normal Eyes General: appearance normal, both eyes and all related structures Neck Neck: normal visual inspection Chest Chest palpation & inspection: normal inspection of the chest and normal pa lpation of entire chest wall Resp Effort & Inspection: normal respiratory effort Auscultation: Bilateral: Clear to Auscultation Cardio Palpation: normal PMI Rate: regular rate Rhythm: regular rhythm GI Inspection: normal to inspection Auscultation: normal bowel sounds Percussion: normal to percussion Palpation: no hepatosplenomegaly Skin General: no rashes or lesions noted Neuro General: patient alert Extrem General: normal to inspection Psych Affect: normal affect Quality Reporting Tobacco Screening ([facility] 138) Smoking Status: Never smoker Assessment and Plan (No Qualifiers) Assessment and Plan (1) Ulcerative colitis: Status: Acute Medications: New: sodium,potassium,mag sulfates 17.5-3.13-1.6 gram (Suprep Bowel Prep Kit) DILUTE; drink full amount early evening before AND next morning at least 2 hr before procedure; follow w 960 mL water PO 354 mL 0RF colonoscopy MDD 1 K51.90 Plan - Dr. Asher Friend, DO: She will undergo colonoscopy for further evaluation and surveillance of her chronic ulcerative colitis. Random biopsies will be taken throughout the colon for staging purposes. Pending her optical evaluation and pathologic evaluation treatment recommendations will be given. We will not be holding her antiplatelet therapy at this time due to her high risk of in-stent thrombosis. She expressed to me that the last time she was taking off her Plavix therapy she needed to have another stent placed subsequently after that procedure was done. Thank you very much for referring this patient to me. Plan Details Follow Up: 2 Weeks (after procedure) [facility] Medical History (Updated 01/01/21 @ 13:06 by Alyson Maddox) Acute pericarditis Adenomyosis Alcohol use Atherosclerosis of coronary artery of [place] heart with angina pectoris Cardiology follow-up encounter Chest wall asymmetry Drug-induced lupus erythematosus Elevated LFTs History of hematuria History of stress test Hyperlipidemia Lupus Non-smoker Pericarditis Ulcerative colitis Home Medications aspirin 81 mg tablet,delayed release 81 mg PO DAILY #90 tab 12/23/17 [Rx Last Taken 08/29/20] azathioprine 50 mg tablet 100 mg PO QHS tab 03/24/18 [History Last Taken 05/05/18] nitroglycerin 0.4 mg sublingual tablet 0.4 mg SUBLINGUAL Q5-15M PRN #30 tab 12/29/18 [Rx Last Taken Unknown] hydroxychloroquine 200 mg tablet 200 mg PO DAILY 03/15/19 [History Last Taken Unknown] ezetimibe 10 mg tablet 10 mg PO DAILY #90 tab 01/23/20 [Rx Last Taken Unknown] metoprolol succinate 25 mg tablet,extended release 24 hr 25 mg PO DAILY #90 tab 06/30/20 [Rx Last Taken 01/05/21 05:20] rosuvastatin 5 mg tablet 5 mg PO MOWEFR 90 Days #39 tablet 07/21/20 [Rx Last Taken Unknown] clopidogrel 75 mg tablet 75 mg PO DAILY #90 tab 08/04/20 [Rx Last Taken 08/29/20] lisinopril 5 mg tablet 5 mg PO DAILY #90 tab 08/29/20 [Rx Last Taken Unknown] folic acid 1 mg tablet 1 mg PO DAILY #90 tab 12/09/20 [Rx Last Taken Unknown] sodium,potassium,mag sulfates 17.5 gram-3.13 gram-1.6 gram oral soln See Rx Instructions PO .COMPLEX #354 ml MDD 1 12/16/20 [Rx Last Taken Unknown] Allergy/AdvReac Type Severity Reaction Status Date / Time colchicine Allergy Mild unknown Verified 01/05/21 06:26 omeprazole Allergy lupus rash Verified 01/05/21 06:26 Enannlb-Jfo-Ige Reductase Allergy fever, abn Verified 01/05/21 06:26 Inhibitor liver function test Sulfa (Sulfonamide Allergy Nausea/Vom/ Verified 01/05/21 06:26 Antibiotics) Diarrhea tramadol HCl [From Ultram] AdvReac Other Verified 01/05/21 06:26 Family History Father Heart disease Hypertension Hyperlipidemia Mother Heart disease Bowel disease Respiratory disease Brother Lupus Grandmother Heart disease Diabetes Other grandparents history of heart disease Surgical History H/O coronary artery bypass surgery (05/02/18) History of coronary artery stent placement (12/19/18) History of left heart catheterization (08/29/20) Hx of cholecystectomy Status post hysteroscopy (11/30/18) Social History Smoking Status: Never smoker alcohol intake: current details: social substance use type: does not use caffeine: Yes seatbelt use: always do you feel safe at home: Yes 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 history: 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[employer] [facility] Vital Signs Vital Signs Vital Signs: 01/05/21 06:34 Temperature 97.4 F L Temperature Source Temporal Pulse Rate 89 Respiratory Rate 16 Respiratory Pattern Normal Blood Pressure 125/71 H Blood Pressure Mean 89 Blood Pressure Source Monitor Blood Pressure Position Semi-Fowlers Blood Pressure Location Right Arm Pulse Ox 100 Oxygen Delivery Method Room Air Weight Weight: 130 lb 8.218 oz Body Mass Index (BMI) 24.6 Results Lab / Micro Data Labs: Laboratory Results - last 24 hr 01/05/21 06:00: Urine Test Negative Assessment & Plan Assessment/Plan (1) Ulcerative colitis: PLAN: This is an updated H&P the been no changes since I saw in the office
--- NOTE | 2021-01-05 07:34 | OP.COLON_ITS ---
Patient Name: Amalia Reyes Procedure Date: 01/05/2021 6:52 AM Date of : 1970 Age: 50 Procedure: Colonoscopy Indications: Chronic ulcerative pancolitis Providers: Lb Sands DO Medicines: Monitored Anesthesia Care Patient Profile: Last Colonoscopy: more than 3 years ago. This is a 50 year old female. Refer to note in patient chart for documentation of history and physical. Complications: No immediate complications. Procedure: Pre-Anesthesia Assessment: - Prior to the procedure, a History and Physical was performed, and patient medications and allergies were reviewed. The patient is competent. The risks and benefits of the procedure and the sedation options and risks were discussed with the patient. All questions were answered and informed consent was obtained. Patient identification and proposed procedure were verified by the physician in the pre-procedure area. Mental Status Examination: alert and oriented. Airway Examination: normal oropharyngeal airway and neck mobility. Respiratory Examination: clear to auscultation. CV Examination: normal. Prophylactic Antibiotics: The patient does not require prophylactic antibiotics. Prior Anticoagulants: The patient has taken no previous anticoagulant or antiplatelet agents. ASA Grade Assessment: I - A normal, healthy patient. After reviewing the risks and benefits, the patient was deemed in satisfactory condition to undergo the procedure. The anesthesia plan was to use moderate sedation / analgesia (conscious sedation). Immediately prior to administration of medications, the patient was re-assessed for adequacy to receive sedatives. The heart rate, respiratory rate, oxygen saturations, blood pressure, adequacy of pulmonary ventilation, and response to care were monitored throughout the procedure. The physical status of the patient was re-assessed after the procedure. After I obtained informed consent, the scope was passed under direct vision. Throughout the procedure, the patient's blood pressure, pulse, and oxygen saturations were monitored continuously. The colonoscope was introduced through the anus and advanced to the terminal ileum. The colonoscopy was performed without difficulty. The patient tolerated the procedure well. The quality of the bowel preparation was good. Moderate Sedation: Moderate (conscious) sedation was personally administered by an anesthesia professional. The following parameters were monitored: oxygen saturation, heart rate, blood pressure, and response to care. Scope In: 7:08:24 AM Scope Withdrawal Time 0 hours 11 minutes 35 seconds Scope Out: 7:26:33 AM Total Procedure Duration Time 0 hours 18 minutes 9 seconds Findings: The perianal and digital rectal examinations were normal. Pertinent negatives include normal sphincter tone. A 5 mm polyp was found in the sigmoid colon. The polyp was sessile. The polyp was removed with a jumbo cold forceps. Resection and retrieval were complete. Verification of patient identification for the specimen was done by the nurse using the patient's name and medical record number. Estimated blood loss: none. The exam was otherwise normal throughout the examined colon. The terminal ileum appeared normal. Two biopsies were taken every 10 cm with a cold forceps from the ascending colon, right colon, left colon, transverse colon, right transverse colon, left transverse colon, descending colon, sigmoid colon and rectum for ulcerative colitis surveillance. These biopsy specimens were sent to Pathology. Verification of patient identification for the specimen was done by the nurse using the patient's name and medical record number. Estimated blood loss: none. The exam was otherwise without abnormality on direct and retroflexion views. Impression: - One 5 mm polyp in the sigmoid colon, removed with a jumbo cold forceps. Resected and retrieved. - The examined portion of the ileum was normal. Biopsied. - The examination was otherwise normal on direct and retroflexion views. - The entire examined colon is normal. Biopsied. - The examined portion of the ileum was normal. Biopsied. - One 5 mm, non-bleeding polyp in the sigmoid colon, removed with a jumbo cold forceps. Resected and retrieved. Biopsied. Recommendation: - Discharge patient to home. - Resume previous diet. - Continue present medications. - Await pathology results. - Repeat colonoscopy in 2 years for surveillance. - Return to GI office in 2 weeks. Procedure Code(s): --- Professional --- 83914, Colonoscopy, flexible; with biopsy, single or multiple CPT copyright 2017 [employer]. All rights reserved. The codes documented in this report are preliminary and upon process artist review may be revised to meet current compliance requirements. Lb Sands DO 01/05/2021 7:33:59 AM This report has been signed electronically. Number of Addenda: 1 Note Initiated On: 01/05/2021 6:52 AM Addendum Number: 1 Addendum Date: 12/10/2021 4:04:06 PM MAC was used instead of moderate sedation for this patient. Lb Sands DO 12/10/2021 4:04:16 PM This report has been signed electronically.
--- NOTE | 2021-01-05 07:35 | OP.CCLET_ITS ---
12/10/2021 Kenzie Torrez [address] [facility] [place] [address] Re : Colonoscopy procedure for Amalia Reyes Dear Dr. Torrez This procedure was performed on Tuesday, January 05, 2021. My impressions and recommendations are as follows: Impressions : - One 5 mm polyp in the sigmoid colon, removed with a jumbo cold forceps. Resected and retrieved. - The examined portion of the ileum was normal. Biopsied. - The examination was otherwise normal on direct and retroflexion views. - The entire examined colon is normal. Biopsied. - The examined portion of the ileum was normal. Biopsied. - One 5 mm, non-bleeding polyp in the sigmoid colon, removed with a jumbo cold forceps. Resected and retrieved. Biopsied. Recommendations : - Discharge patient to home. - Resume previous diet. - Continue present medications. - Await pathology results. - Repeat colonoscopy in 2 years for surveillance. - Return to GI office in 2 weeks. My findings are described in the full procedure note, which is enclosed. If I can be of further assistance, please feel free to contact me at . Sincerely, Lb Sands, 01/05/2021 7:33:59 AM This report has been signed electronically.
== END 2021-01-05 08:09 ==
LOC: EN 06:01 → AC 06:02
PROVIDERS: Anesthesiology; PCP Family Medicine; Referring Provider Family Medicine; Visit Provider Internal Medicine Gastroenterology
PROC: 0DJD8ZZ Inspection of Lower Intestinal Tract, Via Natural or Artificial Opening Endoscopic (ICD-10-PCS; CPT 45378; principal; 2021-01-05 06:55)
DX: K51.00 Ulcerative (chronic) pancolitis without complications (principal); D12.5 Benign neoplasm of sigmoid colon; L93.0 Discoid lupus erythematosus; I25.10 Atherosclerotic heart disease of native coronary artery without angina pectoris; E78.5 Hyperlipidemia, unspecified; Z79.02 Long term (current) use of antithrombotics/antiplatelets; Z79.82 Long term (current) use of aspirin; Z79.899 Other long term (current) drug therapy; Z95.5 Presence of coronary angioplasty implant and graft; Z95.1 Presence of aortocoronary bypass graft
CPT/HCPCS: 45380; 81025; 88305; J7120; J2405

== ENCOUNTER → 2021-01-09 12:01 | Outpatient (CLI) | payer OTHER, SELFPAY | PROVIDERS: PCP Family Medicine; Referring Provider Internal Medicine Gastroenterology; Visit Provider Internal Medicine Gastroenterology | DX: K51.90 Ulcerative colitis, unspecified, without complications (principal) | CPT/HCPCS: 36415 ==

== ENCOUNTER → 2021-01-28 | Outpatient (CLI) | payer OTHER, SELFPAY ==
[2021-02-03 08:32] LABS: HPV APTIMA, High Risk Negative (Negative)
== END | disposition home or self-care (01) ==
LOC: LABSPEC 15:54
PROVIDERS: PCP Family Medicine; Referring Provider Physician Assistant; Visit Provider Physician Assistant
DX: Z12.4 Encounter for screening for malignant neoplasm of cervix (principal)
CPT/HCPCS: 87624; 88175; G0145

== ENCOUNTER → 2021-03-02 08:01 | Outpatient (CLI) | payer OTHER, SELFPAY ==
--- NOTE | 2021-03-02 08:03 | CDU_ITS ---
Reason For Study: DIZZINESS Rt. Velocities/BP Lt. Velocities/BP Prox CCA 97/27 cm/sec. Prox CCA 105/35 cm/sec. Mid CCA 103/34 cm/sec. Mid CCA 111/39 cm/sec. Dist CCA 87/32 cm/sec. Dist CCA 89/36 cm/sec. Prox ICA 114/50 cm/sec. Prox ICA 133/50 cm/sec. Mid ICA 143/48 cm/sec. Mid ICA 102/45 cm/sec. Dist ICA 69/29 cm/sec. Dist ICA 109/52 cm/sec. Rt. ICA/CCA = 1.5. Lt. ICA/CCA = 1.3. Prox ECA 114/30 cm/sec. Prox ECA 99/22 cm/sec. Rt. Vert. 37/15 cm/sec. Lt. Vert. 49/20 cm/sec. Right Extracranial There is homogeneous, smooth atherosclerotic plaque noted in the right common carotid artery. High resistance flow pattern noted in the right internal carotid artery suggesting significant distal stenosis. The right internal carotid artery is not well visualized. High bifurcation - technically difficult. There is homogeneous, smooth atherosclerotic plaque noted in the right external carotid artery. Antegrade flow is noted in the right vertebral artery. Left Extracranial There is homogeneous, smooth atherosclerotic plaque noted in the left common carotid artery. The left internal carotid artery is not well visualized. High resistance flow pattern noted in the left internal carotid artery suggesting significant distal stenosis. High bifurcation- technically difficult. There is homogeneous, smooth atherosclerotic plaque noted in the left external carotid artery. Antegrade flow is noted in the left vertebral artery. Procedure Carotid Duplex [id number]. The study was technically difficult. Exam performed in department. VL/Carotid Duplex Ultrasound Interpretation Summary This examination was noted to be technically difficult. No significant plaque within the right carotid bulb and proximal internal carot id artery. 50 to 69% stenosis right internal carotid artery Flow rates in the distal right internal carotid suggest a high resistance patte rn suggesting more cephalad stenosis. The bifurcation was high difficult to visualize. Similar findings on the left. No hemodynamically significant plaque identified. 50 to 69% stenosis left proximal internal carotid High bifurcation with high resistive flow pattern distal left internal carotid Patent antegrade vertebrals bilaterally Ordering Physician: Bry Pelaez Referring Physician: FOSTER VILLASEÑOR Performed By: Riaz STARR, Bekah TORRES and Student
== END ==
PROVIDERS: PCP Family Medicine; Referring Provider Internal Medicine Cardiovascular Disease; Visit Provider Internal Medicine Cardiovascular Disease
DX: I65.23 Occlusion and stenosis of bilateral carotid arteries (principal); I25.119 Atherosclerotic heart disease of native coronary artery with unspecified angina pectoris; E78.5 Hyperlipidemia, unspecified; R42 Dizziness and giddiness; R51.9 Headache, unspecified; Z95.1 Presence of aortocoronary bypass graft; Z95.5 Presence of coronary angioplasty implant and graft
CPT/HCPCS: 93880

== ENCOUNTER → 2021-03-04 12:29 | Outpatient (CLI) | payer OTHER, SELFPAY ==
--- NOTE | 2021-03-04 12:37 | CT_ITS ---
STUDY: CTA HEAD AND NECK WITH CONTRAST REASON FOR EXAM: Female, 51 years old. Dizziness, abnormal carotid duplex RADIATION DOSAGE (If Supplied By Facility): CTDIvol = ( 26.05 ) mGy, DLP = ( 1331.22 ) mGycm TECHNIQUE: CT angiography was performed with a multi-detector CT scanner. Data acquisition was obtained from the skull base through the vertex following intravenous administration of IV 100mL Isovue-370. MIP images were reconstructed from the axial data set. Post-processing of the angiographic images was performed, with multiplanar reformation and 3D reconstruction. Individualized dose optimization techniques were used for this CT. COMPARISON: No relevant priors. FINDINGS: Normal bilateral petrous carotid arteries. Normal right cavernous carotid artery with a normal supraclinoid bifurcation. Normal left cavernous carotid artery with a normal supraclinoid bifurcation. Normal right A1 segments of the anterior cerebral artery. Normal left A1 segments of the anterior cerebral artery. Normal intact anterior communicating artery (ACOM). Normal bilateral A2 segments of the anterior cerebral arteries. Normal right M1 and M2 segments of the middle cerebral arteries, with a normal M1 bifurcation. Normal left M1 and M2 segments of the middle cerebral arteries, with a normal M1 bifurcation. Normal right posterior communicating artery (PCOM). Normal left posterior communicating artery (PCOM). There is a small atretic right vertebral artery with a dominant left vertebral artery. Normal basilar artery with a normal basilar bifurcation. The visualized bilateral superior cerebellar (SCA) arteries are normal. Normal bilateral P1, P2 and visualized P3 segments of the posterior cerebral arteries. There is no demonstrated aneurysm of the [place]. There is no demonstrated abnormality of the visualized brain. AORTIC ARCH: Normal visualized aortic arch. Normal origins of the brachiocephalic, left common carotid, and left subclavian arteries. RIGHT CAROTID ARTERIES: Normal right common carotid artery (CCA). Normal right common carotid bulb. Normal origin of the right internal carotid (ICA) artery without a hemodynamically significant stenosis. Normal visualized cervical portion of the right internal carotid artery. Normal origin of the right external carotid artery (ECA). LEFT CAROTID ARTERIES: Normal left common carotid artery (CCA). Normal left common carotid bulb. Normal origin of the left internal carotid (ICA) artery without a hemodynamically significant stenosis. Normal visualized cervical portion of the left internal carotid artery. Normal origin of the left external carotid artery (ECA). VERTEBRAL ARTERIES: There is enhancement within the bilateral vertebral arteries with a small right vertebral artery, and a dominant left vertebral artery. The source images do not show evidence of a suspicious enhancing lesion, there is no airway narrowing or deviation. Lung apices are clear thyroid gland is unremarkable. CT/CTA Head AND Neck W/ Contrast IMPRESSION: No CTA evidence of CCA or ICA stenosis [place] and intracranial circulation normal, no evidence of stenosis, occlusion, or aneurysm No suspicious enhancing lesion, airway narrowing or deviation Small right vertebral artery Electronically Signed: Aguilar Whitfield MD at 17:25 EST , Service support ,
== END ==
PROVIDERS: PCP Family Medicine; Visit Provider Surgery
DX: R42 Dizziness and giddiness (principal); R93.1 Abnormal findings on diagnostic imaging of heart and coronary circulation
CPT/HCPCS: 70496; 70498; Q9967

== ENCOUNTER 2021-05-10 02:31 | Emergency (ER) | payer OTHER, SELFPAY ==
[2021-05-10 02:32] VITALS: BP 169/110; PULSE 78; RESP 18; TEMP 36.2; O2SAT 99; BMI 25.0
--- NOTE | 2021-05-10 02:59 | CT_ITS ---
EXAM: CT Angiography Chest Without and With Intravenous Contrast CLINICAL INDICATION: 51 years old, Female; chest pain TECHNIQUE: Helically acquired angiography images were obtained of the chest without and with intravenous contrast. This CT exam was performed using one or more of the following dose reduction techniques: automated exposure control, adjustment of the mA and/or kV according to patient size, and/or use of iterative reconstruction technique. This report was created using [employer] report generation technology. MIP reconstructed images were created and reviewed. CONTRAST: IV 100mL Isovue-370 COMPARISON: None. FINDINGS: Pulmonary arteries: Unremarkable. Normal in caliber. No pulmonary embolism. Aorta: Unremarkable. Normal in caliber. No evidence of dissection. Great vessels of aortic arch: Unremarkable. Normal in caliber. No evidence of dissection. Lungs and pleural spaces: Unremarkable. No mass. No consolidation or edema. No pleural effusion or thickening. No pneumothorax. Heart: Unremarkable. Heart size is normal. No pericardial effusion. No signs of right heart strain, ratio of right ventricle to left ventricle measures less than 1. Mediastinum: Unremarkable. No mediastinal or hilar adenopathy. Esophagus is unremarkable. No hiatal hernia. Thyroid: Unremarkable. No thyroid lesions. Bones/joints: Unremarkable. No suspicious lytic or blastic abnormality. Gallbladder and bile ducts: Cholecystectomy. CT/CTA Chest W/WO Contrast IMPRESSION: No pulmonary embolism. Electronically Signed: Jaime Freeman MD at 3:49 EST ,
--- NOTE | 2021-05-10 03:01 | EKG12_ITS ---
Test Reason : CP Blood Pressure : / mmHG Vent. Rate : 074 BPM Atrial Rate : 074 BPM P-R Int : 176 ms QRS Dur : 098 ms QT Int : 390 ms P-R-T Axes : 047 -18 026 degrees QTc Int : 432 ms Normal sinus rhythm Normal ECG When compared with ECG of 20-DEC-2018 05:02, No significant change was found Confirmed by MAGDALENA CAMPOS MD ([id number]), magazine editor DIAZ MARIN ([id number]) on 05/13/2021 8:18:12 AM Referred By: KRYSTIAN Confirmed By:MAGDALENA CAMPOS MD
[2021-05-10 03:08] LABS: Absolute Lymphocyte Count 1.46 X10^3/uL (0.83-4.51); Absolute Neutrophil Count 3.4 X10^3/uL (2.0-7.7); Basophil# 0.04 X10^3/uL; Basophil% 0.7 % (0-1); Eosinophil# 0.17 X10^3/uL; Hematocrit 40.9 % (37-47); Hemoglobin 14.1 g/dL (12.0-15.0); Lymphocyte # 1.46 X10^3/ul (0.83-4.51); Lymphocyte % 25.6 % (19-41); Mean Corp Hgb Conc 34.5 g/dL (32-36); Mean Corpuscular Hgb 32.3 pg (27.0-32.0); Mean Corpuscular Volume 93.6 fL (81-99); Mean Platelet Vol. 9.2 fl (6.2-12.0); Monocyte% 10.5 % (0-10); NRBC Flagged by Analyzer 0 % (0-5); Neutrophil # 3.42 X10^3/uL (2.7-7.7); Platelet Count 264 K/mm3 (150-450); RBC Distribution Width CV 11.3 % (11.6-14.6); RBC Distribution Width SD 38.7 fl (35.1-43.9); Red Blood Count 4.37 M/mm3 (4.2-5.4); White Blood Count 5.7 K/mm3 (4.4-11.0)
[2021-05-10] MEDS: Aspirin 325 MG Tablet PO (03:09)
[2021-05-10] MEDS: 0.9% Normal Saline 1,000 ML 999 ML IV (03:09)
[2021-05-10 03:14] LABS: Partial Thromboplast Time 29.6 Seconds (24.1-36.2)
[2021-05-10 03:18] LABS: International Normalized Ratio 0.9; Prothrombin Time (Protime)PT. 11.8 SECONDS (11.7-14.9)
[2021-05-10 03:23] LABS: Anion Gap 7 (5-15); BUN 12 mg/dL (7-18); BUN/Creat Ratio 14.9 RATIO (10-20); Calcium,Total 9.9 mg/dL (8.5-10.1); Chloride 109 mmol/L (98-107); EST Glomerular Filtration Rate 80 mL/min (>60); Est Glom Filt Rate - Afr Amer 97 mL/min (>60); Estimated Creatinine Clearance 62.78 ml/min; Glucose 105 mg/dL (74-106); Magnesium 2.4 mg/dL (1.6-2.6); Potassium 3.4 mmol/L (3.5-5.1); Sodium Level 142 mmol/L (136-145); Troponin-I HS 4 pg/mL (3.0-54.0)
[2021-05-10 03:45] VITALS: BP 149/92; PULSE 80
[2021-05-10] MEDS: Nitroglycerin SL (ED/IMG/CATH) 0.4 MG TABLET SL (03:45)
[2021-05-10 03:46] VITALS: BP 149/92; PULSE 70; RESP 13; O2SAT 99
[2021-05-10] MEDS: Ketorolac 30 MG/ML Syringe IV (04:14)
--- NOTE | 2021-05-10 04:33 | EX.ED.DYSGE1 ---
HPI History of Present Illness Chief Complaint: Chest Pain Narrative Narrative: Patient is a 51-year-old female with past medical history of previous CAD needing stent placement as well as one-vessel bypass. She states that yesterday she was playing with her grandchildren and she noticed some vague discomfort and her upper mid back. She states she was able to take some ibuprofen and have moderate improvement of her symptoms. She states that she was able to sleep but occasionally wake up secondary to intermittent bouts of pain. She does state that the pain has been constant but it does wax and wane in its severity. She states that with her complex medical history she is concerned this could be cardiac in nature and therefore comes to the hospital for evaluation [facility] Medical History Acute pericarditis Adenomyosis Alcohol use Atherosclerosis of coronary artery of [place] heart with angina pectoris Bilateral carotid artery stenosis Cardiology follow-up encounter Chest wall asymmetry Drug-induced lupus erythematosus Elevated LFTs History of hematuria History of stress test Hyperlipidemia Lupus Non-smoker Pericarditis Ulcerative colitis Home Medications aspirin 81 mg tablet,delayed release 81 mg PO DAILY #90 tab 12/23/17 [Rx Last Taken 08/29/20] azathioprine 50 mg tablet 25 mg PO QHS tab 03/24/18 [History Last Taken 05/05/18] nitroglycerin 0.4 mg sublingual tablet 0.4 mg SUBLINGUAL Q5-15M PRN #30 tab 12/29/18 [Rx Last Taken Unknown] metoprolol succinate 25 mg tablet,extended release 24 hr 25 mg PO DAILY #90 tab 06/30/20 [Rx Last Taken 01/05/21 05:20] rosuvastatin 5 mg tablet 5 mg PO MOWEFR 90 Days #39 tablet 07/21/20 [Rx Last Taken Unknown] clopidogrel 75 mg tablet 75 mg PO DAILY #90 tab 08/04/20 [Rx Last Taken 08/29/20] folic acid 1 mg tablet 1 mg PO DAILY #90 tab 12/09/20 [Rx Last Taken Unknown] cholecalciferol (vitamin D3) 50 mcg (2,000 unit) capsule 50 mcg PO DAILY 01/09/21 [History Last Taken Unknown] hydroxychloroquine 200 mg tablet 200 mg PO DAILY 01/09/21 [History Last Taken Unknown] ezetimibe 10 mg tablet 10 mg PO DAILY #90 tab 01/23/21 [Rx Last Taken Unknown] lisinopril 5 mg tablet 5 mg PO BID #180 tab 04/27/21 [Rx Last Taken Unknown] methocarbamol 500 mg PO 4X/DAY PRN PRN #56 tab 05/10/21 [Rx Last Taken Unknown] Allergy/AdvReac Type Severity Reaction Status Date / Time colchicine Allergy Mild unknown Verified 05/10/21 02:37 omeprazole Allergy lupus rash Verified 05/10/21 02:37 [id number]-[id number]-LzW Reductase Allergy fever, abn Verified 05/10/21 02:37 Inhibitor liver [Hmooaqn-Ibh-Cfy Reductase function Inhibitor] test Sulfa (Sulfonamide Allergy Nausea/Vom/ Verified 05/10/21 02:37 Antibiotics) Diarrhea tramadol HCl [From Ultram] AdvReac Other Verified 05/10/21 02:37 Family History Father Heart disease Hypertension Hyperlipidemia Mother Heart disease Bowel disease Respiratory disease Brother Lupus Grandmother Heart disease Diabetes Other grandparents history of heart disease Surgical History (Updated 05/10/21 @ 02:36 by Trisha Nina) H/O coronary artery bypass surgery (05/02/18) History of colonoscopy with polypectomy (12/05/20) History of coronary artery stent placement (12/19/18) History of left heart catheterization (08/29/20) Hx of CABG Hx of cholecystectomy Status post hysteroscopy (11/30/18) Social History Smoking Status: Never smoker alcohol intake: current details: social substance use type: does not use caffeine: Yes what type of physical activity do you participate in: aerobics frequency: 3-4 times per week seatbelt use: always do you feel safe at home: Yes 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 history: 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 Constitutional Constitutional ED: Denies chills or fever(s) ENT ENT ED: Denies sore throat Cardiovascular Cardiovascular: Denies chest pain, palpitations or racing heartbeat Respiratory/Chest Respiratory/Chest: Denies cough or dyspnea Gastrointestinal Gastrointestinal: Denies abdominal pain, diarrhea, nausea or vomiting Genitourinary Genitourinary ED: Denies dysuria Musculoskeletal Musculoskeletal: Reports back pain; Denies myalgias Integumentary Denies rash Neurologic Neurologic: Denies headache(s) Hematologic/Lymphatic Hematologic/Lymphatic: Reports easy bleeding and easy bruising EXAM Physical Exam Const Vital Signs: 05/10/21 02:32 05/10/21 03:45 05/10/21 03:46 Temperature 97.1 F L Temperature Source Temporal Pulse Rate 78 80 70 Respiratory Rate 18 13 Blood Pressure 169/110 H 149/92 H 149/92 H Blood Pressure Mean 129 111 Pulse Ox 99 99 Oxygen Delivery Method Room Air 05/10/21 04:52 05/10/21 05:32 Temperature Temperature Source Pulse Rate 62 65 Respiratory Rate 18 22 H Blood Pressure 124/79 H 115/80 Blood Pressure Mean 94 91 Pulse Ox 94 94 Oxygen Delivery Method Room Air Positive well nourished and well developed General Appearance ED: well developed HEENT Reports moist mucous membranes Eyes PERRL and EOMs intact bilaterally Neck supple Chest Wall palpation of chest normal Resp normal respiratory effort and clear to auscultation bilaterally Cardio regular rate and regular rhythm GI normal to inspection, nondistended, normoactive bowel sounds, non-tender, non-distended and no masses GI Narrative: No voluntary guarding or rigidity no pulsatile mass Auscultation: normoactive bowel sounds Palpation: soft Back/Spine no CVA tenderness Back/Spine Narrative: No bony deformity or step-off of the thoracic or lumbar spine no midline pain with palpation Extremity normal to inspection Neuro oriented x3 and CN's II-XII intact bilaterally Sensorium / Orientation: alert Psych mental status grossly normal Psych Narrative: No asymmetric edema no pitting edema negative Homans' sign bilaterally Skin no rashes or lesions noted Skin Narrative: No overlying soft tissue changes to suggest trauma or infection MDM MDM MDM Narrative Medical decision making narrative: Patient presented to the ER slightly hypertensive but otherwise with stable vitals and in no acute distress. She had pain in her mid upper back but did not seem to worsen with inspiration or palpation. She does have a strong history of coronary artery disease with previous bypass and 2 stent placements. Therefore there is concerned that this could be cardiac in nature. A basic work-up was obtained which revealed a normal initial and delta troponin. CTA of her chest revealed no pneumothorax pulmonary embolus or dissection. On reevaluation the patient is resting comfortably and was able to sleep following Toradol administration. We discussed about possible observation because of her strong history but as she has had 2 normal troponins and a normal CT scan patient would like to follow-up with a quilter fixer for further evaluation. At this time I do agree with this plan of care and patient will be discharged home and I will start her on muscle relaxers with chance this could be deep musculoskeletal pain as her cardiac work-up is negative Lab Data Attestation: I reviewed the patient's lab results. Labs: Laboratory Results - last 24 hr 05/10/21 05/10/21 05/10/21 02:45 02:45 02:45 WBC 5.7 RBC 4.37 Hgb 14.1 Hct 40.9 MCV 93.6 MCH 32.3 H MCHC 34.5 RDW Std Deviation 38.7 RDW Coeff of Rei 11.3 L Plt Count 264 MPV 9.2 Immature Gran % (Auto) 0.200 Neut % (Auto) 60.0 Lymph % (Auto) 25.6 Dickson % (Auto) 10.5 H Eos % (Auto) 3.0 Baso % (Auto) 0.7 Absolute Neuts (auto) 3.4 Absolute Lymphs (auto) 1.46 Nucleated RBC % 0 PT 11.8 INR 0.9 APTT 29.6 Sodium 142 Potassium 3.4 L Chloride 109 H Carbon Dioxide 26.0 Anion Gap 7 BUN 12 Creatinine 0.80 Estim Creat Clear Calc 62.78 Est GFR (MDRD) Af Amer 97 Est GFR (MDRD) Non-Af 80 BUN/Creatinine Ratio 14.9 Glucose 105 Calcium 9.9 Magnesium 2.4 Troponin I High Sens 4 05/10/21 04:50 WBC RBC Hgb Hct MCV MCH MCHC RDW Std Deviation RDW Coeff of Rei Plt Count MPV Immature Gran % (Auto) Neut % (Auto) Lymph % (Auto) Dickson % (Auto) Eos % (Auto) Baso % (Auto) Absolute Neuts (auto) Absolute Lymphs (auto) Nucleated RBC % PT INR APTT Sodium Potassium Chloride Carbon Dioxide Anion Gap BUN Creatinine Estim Creat Clear Calc Est GFR (MDRD) Af Amer Est GFR (MDRD) Non-Af BUN/Creatinine Ratio Glucose Calcium Magnesium Troponin I High Sens 5 Radiography Diagnostic Testing: Clinical Impression(s) from Imaging Studies Chest CTA 05/10/21 02:59 IMPRESSION: No pulmonary embolism. Electronically Signed: Jaime Freeman MD at 3:49 EST , Discharge Plan Triage Chief Complaint: Chest Pain ED Provider: Ted Colindres Dx/Rx/DC Orders Clinical Impression: Acute upper back pain Instructions: Back Basics: A Healthy Spine, ED Chest Pain, Uncertain Cause Prescriptions: New methocarbamol 500 mg tablet 500 mg PO 4X/DAY PRN PRN (Reason: Muscle pain/spasm) Qty: 56 RF: 0 No Action aspirin [Adult Aspirin Regimen] 81 mg tablet,delayed release (DR/EC) 81 mg PO DAILY Qty: 90 RF: 3 hydroxychloroquine [Plaquenil] 200 mg tablet 200 mg PO DAILY RF: 0 nitroglycerin 0.4 mg tablet, sublingual 0.4 mg SUBLINGUAL Q5-15M PRN (Reason: chest pain) Qty: 30 RF: 0 cholecalciferol (vitamin D3) 50 mcg (2,000 unit) capsule 50 mcg PO DAILY RF: 0 azathioprine 50 mg tablet 25 mg PO QHS RF: 0 metoprolol succinate 25 mg tablet extended release 24 hr 25 mg PO DAILY Qty: 90 RF: 4 rosuvastatin 5 mg tablet 5 mg PO MOWEFR 90 Days Qty: 39 RF: 3 clopidogrel 75 mg tablet 75 mg PO DAILY Qty: 90 RF: 3 folic acid 1 mg tablet 1 mg PO DAILY Qty: 90 RF: 3 ezetimibe 10 mg tablet 10 mg PO DAILY Qty: 90 RF: 3 lisinopril 5 mg tablet 5 mg PO BID Qty: 180 RF: 3 Primary Care Provider: Kenzie Torrez Referrals: Bry Pelaez MD [STAFF PHYSICIAN] - 3-5 Days if not improving Kenzie Torrez DO [Primary Care Provider] - Disposition Disposition: Home, Self Care
[2021-05-10 04:52] VITALS: BP 124/79; PULSE 62; RESP 18; O2SAT 94
[2021-05-10 05:32] VITALS: BP 115/80; PULSE 65; RESP 22; O2SAT 94
[2021-05-10 05:51] LABS: Troponin-I HS 5 pg/mL (3.0-54.0)
[2021-05-10 06:12] VITALS: BP 120/80; PULSE 68; RESP 15; O2SAT 96
== END 2021-05-10 06:13 | disposition home or self-care (01) ==
PROVIDERS: Emergency Provider Emergency Medicine; PCP Family Medicine; Visit Provider Emergency Medicine
DX: M54.6 Pain in thoracic spine (principal); I25.119 Atherosclerotic heart disease of native coronary artery with unspecified angina pectoris; I10 Essential (primary) hypertension; E78.5 Hyperlipidemia, unspecified; Z95.5 Presence of coronary angioplasty implant and graft; Z95.1 Presence of aortocoronary bypass graft; Z79.02 Long term (current) use of antithrombotics/antiplatelets
CPT/HCPCS: 71275; 80048; 83735; 84484; 85025; 85610; 85730; 93005; 96361; 96374; 99284; J7030; Q9967; A4216

== ENCOUNTER 2021-07-08 07:13 | Outpatient (CLI) | payer OTHER, SELFPAY ==
[2021-07-08 07:35] LABS: Erythrocyte Sedimentation Rate 3 mm/hr (0-30)
[2021-07-08 08:00] LABS: CRP < 2.90 mg/L (0.0-3.0)
[2021-07-10 18:26] LABS: Calprotectin, Stool 23 ug/g (0-120)
== END 2021-07-08 23:59 | disposition home or self-care (01) ==
PROVIDERS: PCP Family Medicine; Referring Provider Internal Medicine Gastroenterology; Visit Provider Internal Medicine Gastroenterology
DX: K51.90 Ulcerative colitis, unspecified, without complications (principal)
CPT/HCPCS: 36415; 83993; 85652; 86140

== ENCOUNTER 2021-07-28 07:01 | Outpatient (CLI) | payer OTHER, SELFPAY ==
[2021-07-28 08:42] LABS: AST(SGOT) 22 U/L (15-37); Alanine Aminotransfer ALT/SGPT 27 U/L (13-56); Albumin, Serum 3.9 g/dL (3.2-5.0); Alkaline Phosphatase 64 U/L (45-117); Bilirubin, Direct 0.19 mg/dL (0.00-0.30); Cholesterol 109 mg/dL (200); Globulin 2.7 g/dL (2.2-4.2); High Density Lipoprotein 52 mg/dL; Protein, Total 6.6 g/dL (6.4-8.2); Triglycerides 83 mg/dL; Very Low Density Lipoprotein 17 mg/dL (5-40)
== END 2021-07-28 23:59 | disposition home or self-care (01) ==
PROVIDERS: PCP Family Medicine; Referring Provider Internal Medicine Cardiovascular Disease; Visit Provider Internal Medicine Cardiovascular Disease
DX: E78.00 Pure hypercholesterolemia, unspecified (principal); E78.5 Hyperlipidemia, unspecified; Z95.5 Presence of coronary angioplasty implant and graft; Z95.1 Presence of aortocoronary bypass graft
CPT/HCPCS: 36415; 80061; 80076

== ENCOUNTER → 2021-09-15 | Outpatient (CLI) | payer OTHER, SELFPAY ==
[2021-09-15 07:27] LABS: Absolute Neutrophil Count 3.8 X10^3/uL (2.0-7.7); Basophil# 0.04 X10^3/uL; Basophil% 0.7 % (0-1); Eosinophil# 0.16 X10^3/uL; Eosinophils% 2.8 % (0-5); Hematocrit 39.3 % (37-47); Hemoglobin 13.4 g/dL (12.0-15.0); Lymphocyte % 19.5 % (19-41); Mean Corp Hgb Conc 34.1 g/dL (32-36); Mean Corpuscular Hgb 32.5 pg (27.0-32.0); Mean Corpuscular Volume 95.4 fL (81-99); Mean Platelet Vol. 9.3 fl (6.2-12.0); Monocyte# 0.51 X10^3/uL; Monocyte% 9.1 % (0-10); NRBC Flagged by Analyzer 0 % (0-5); Neutrophil % 67.5 % (47-70); Platelet Count 225 K/mm3 (150-450); RBC Distribution Width CV 11.5 % (11.6-14.6); Red Blood Count 4.12 M/mm3 (4.2-5.4); White Blood Count 5.6 K/mm3 (4.4-11.0)
[2021-09-15 07:35] LABS: Erythrocyte Sedimentation Rate 3 mm/hr (0-30)
[2021-09-15 07:54] LABS: ALB/GLOB Ratio 1.4 RATIO (0.9-2.4); AST(SGOT) 21 U/L (15-37); Alanine Aminotransfer ALT/SGPT 30 U/L (13-56); Albumin, Serum 3.8 g/dL (3.2-5.0); Alkaline Phosphatase 61 U/L (45-117); Anion Gap 5 (5-15); BUN 13 mg/dL (7-18); BUN/Creat Ratio 16.8 RATIO (10-20); CRP < 2.90 mg/L (0.0-3.0); Calcium,Total 8.8 mg/dL (8.5-10.1); Chloride 107 mmol/L (98-107); Creatinine, Serum 0.77 mg/dL (0.55-1.02); EST Glomerular Filtration Rate 83 mL/min (>60); Est Glom Filt Rate - Afr Amer 101 mL/min (>60); Globulin 2.8 g/dL (2.2-4.2); Glucose 102 mg/dL (74-106); LDH 143 U/L (84-246); Potassium 3.5 mmol/L (3.5-5.1); Protein, Total 6.6 g/dL (6.4-8.2); Sodium Level 138 mmol/L (136-145)
[2021-09-16 13:15] LABS: Anti-Centromere B Ab <0.2 AI (0.0-0.9); Anti-Chromatin <0.2 AI (0.0-0.9); Anti-Jo <0.2 AI (0.0-0.9); Anti-Scleroderma-70 AB <0.2 AI (0.0-0.9); RNP Ab <0.2 AI (0.0-0.9); SJOGREN'S Anti-SS-A test > 8.0 AI (0.0-0.9); SJOGREN'S Anti-SS-B test < 0.2 AI (0.0-0.9); Smith Ab <0.2 AI (0.0-0.9)
[2021-09-16 16:09] LABS: Endomysial Antibody IgA Negative (Negative); Immunoglobulin A 84 mg/dL (87-352)
[2021-09-16 21:03] LABS: Anti-dsDNA Ab 6 IU/mL (0-9)
[2021-09-16 21:12] LABS: t-Transglutaminase IgA <2 U/mL (0-3)
[2021-09-21 18:13] LABS: Calprotectin, Stool 62 ug/g (0-120)
[2021-09-22 09:08] LABS: Albumin 4.2 g/dL (2.9-4.4); Alpha-1-Globulins 0.2 g/dL (0.0-0.4); Alpha-2-Globulins 0.6 g/dL (0.4-1.0); Cytoplasmic Ab (C-ANCA) <1:20 titer (Neg:<1:20); Gamma Globulin 0.7 g/dL (0.4-1.8); Immunoglobulin A 84 mg/dL (87-352); Immunoglobulin E < 2 IU/mL (6-495); Immunoglobulin G 741 mg/dL (586-1602); Immunoglobulin M 166 mg/dL (26-217); PROEL- TOTAL PROTEIN 6.4 g/dL (6.0-8.5)
[2021-09-22 15:37] LABS: Perinuclear Ab (P-ANCA) <1:20 titer (Neg:<1:20)
== END | disposition home or self-care (01) ==
LOC: LAB 06:56
PROVIDERS: PCP Family Medicine; Referring Provider Internal Medicine Gastroenterology; Visit Provider Internal Medicine Gastroenterology
DX: K51.90 Ulcerative colitis, unspecified, without complications (principal)
CPT/HCPCS: 36415; 80053; 82784; 82785; 83516; 83615; 83630; 83993; 84165; 85025; 85652; 86140; 86225; 86235; 86255; 86256; 86334

== ENCOUNTER → 2022-01-20 | Outpatient (CLI) | payer OTHER, SELFPAY ==
--- NOTE | 2022-01-20 15:08 | BI_ITS ---
MAMMOGRAPHY - BILATERAL SCREENING REASON FOR EXAM: Female, 52 years old. Routine annual screening examination. PERTINENT HISTORY: Mother with breast cancer. TECHNIQUE: Digital bilateral breast yue (3D mammographic acquisition) in the CC and MLO projections. 2-D mediolateral oblique (MLO) and craniocaudad (CC) views of both breasts were obtained. CAD: Full Field Digital Mammography with Computer Added Detection was performed. COMPARISON: Comparison is made with prior examination dated 12/12/2020 and 12/11/2019. FINDINGS: Breast Composition: The breasts are extremely dense, which lowers the sensitivity of mammography. There are no dominant masses or suspicious calcifications. Stable small benign-appearing bilateral axillary lymph nodes. No other significant abnormalities are identified. There has been no significant change since the prior study. BI/SCRN MAMM (CAD)W/YUE BILAT IMPRESSION: Stable bilateral screening mammogram. Yearly follow-up mammogram recommended. (A) ASSESSMENT CATEGORY: BIRADS Category 2: Benign. A letter regarding these results will be sent to the patient by the facility within 30 days. Approximately 10% of breast cancers are not detected by mammography. A normal mammogram should not delay biopsy of a clinically suspicious abnormality. [id number] Electronically Signed: Garrett Reed MD at 8:19 EDT ,
== END | disposition home or self-care (01) ==
PROVIDERS: PCP Family Medicine; Visit Provider Nurse Practitioner Women's Health
DX: Z12.31 Encounter for screening mammogram for malignant neoplasm of breast (principal); Z80.3 Family history of malignant neoplasm of breast
CPT/HCPCS: 77063; 77067

== ENCOUNTER 2022-04-13 10:57 | Emergency (ER) | payer OTHER, SELFPAY ==
[2022-04-13 10:59] VITALS: BP 118/76; PULSE 77; RESP 14; TEMP 36.6; O2SAT 99; BMI 24.5
--- NOTE | 2022-04-13 11:30 | EKG12_ITS ---
Test Reason : DIZZY Blood Pressure : / mmHG Vent. Rate : 063 BPM Atrial Rate : 063 BPM P-R Int : 170 ms QRS Dur : 094 ms QT Int : 398 ms P-R-T Axes : 034 -13 027 degrees QTc Int : 407 ms Normal sinus rhythm Incomplete right bundle branch block Borderline ECG Confirmed by CELINA LAFLEUR, COBY ([id number]), photograph editor FELIPE ESTEBAN ([id number]) on 04/15/2022 9:19:27 AM Referred By: Confirmed By:COBY PATRICK MD
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
== END 2022-04-13 12:15 | disposition home or self-care (01) ==
PROVIDERS: Emergency Provider Student in an Organized Health Care Education/Training Program; PCP Family Medicine; Visit Provider Student in an Organized Health Care Education/Training Program
DX: R42 Dizziness and giddiness (principal); F41.9 Anxiety disorder, unspecified; I25.10 Atherosclerotic heart disease of native coronary artery without angina pectoris; E78.5 Hyperlipidemia, unspecified
CPT/HCPCS: 93005; 99282

== ENCOUNTER → 2022-04-28 | Outpatient (CLI) | payer OTHER, SELFPAY ==
--- NOTE | 2022-04-28 13:03 | ECHOD_ITS ---
Reason For Study: CHEST PAIN Procedure This was a 2D Doppler, Color Flow transthoracic echocardiogram. Exam performed in department. Left Ventricle Normal LV size. Left ventricular systolic function is normal. The estimated ejection fraction is 60 %. Normal diastololic function. No regional wall motion abnormalities noted. Right Ventricle Normal RV size. Normal systolic function. Atria Normal left atrium. Normal right atrium. Mitral Valve Normal mitral valve. Tricuspid Valve Normal tricuspid valve. Aortic Valve Normal aortic valve. Trisinus/trileaflet aortic valve. Pulmonic Valve Normal pulmonic valve. Great Vessels Normal aortic root. The pulmonary artery is normal size. Normal inferior vena cava. Pericardium/Pleural No pericardial effusion. MMode/2D Measurements & Calculations LVIDd: 4.3 cm IVSd: 0.73 cm Ao root diam: 3.1 cm LVIDs: 3.0 cm LVPWd: 0.96 cm RVDd: 3.9 cm FS: 29.2 % LAV(MOD-bp): 25.0 ml LVAd ap4: 26.0 cm2 SV(MOD-sp4): 39.7 ml LAV(MOD-bp) Indexed: 15.9 ml/m2 LVLd ap4: 7.3 cm LAV(MOD-sp2): 38.7 ml EDV(MOD-sp4): 75.2 ml LAV(MOD-sp4): 15.5 ml EDV(sp4-el): 78.4 ml LVAs ap4: 16.1 cm2 LVLs ap4: 6.3 cm ESV(MOD-sp4): 35.5 ml ESV(sp4-el): 34.8 ml EF(MOD-sp4): 52.8 % EF(sp4-el): 55.6 % SV(sp4-el): 43.6 ml LA A4 area: 9.2 cm2 LA dimension(2D): 2.8 cm RA A4 area: 10.4 cm2 Time Measurements MV dec time: 0.21 sec Doppler Measurements & Calculations MV E max jordin: 49.9 cm/sec Lat Peak E' Jordin: 10.8 cm/sec Med Peak E' Jordin: 6.5 cm/sec MV A max jordin: 55.3 cm/sec E/E' lat: 4.6 E/E' med: 7.7 MV E/A: 0.90 MV V2 max: 66.2 cm/sec Ao V2 max: 111.0 cm/sec MV max P.8 mmHg MV dec slope: 251.4 cm/sec2 Ao max P.9 mmHg MV V2 mean: 40.6 cm/sec Ao V2 mean: 80.0 cm/sec MV mean P.75 mmHg Ao mean P.9 mmHg MV V2 VTI: 24.6 cm Ao V2 VTI: 25.3 cm AV (velocity ratio): 0.85 LV V1 max: 89.4 cm/sec PA V2 max: 85.1 cm/sec LV V1 max P.2 mmHg PA V2 mean: 60.9 cm/sec LV V1 mean P.7 mmHg LV V1 mean: 60.1 cm/sec LV V1 VTI: 21.4 cm ECHO/Echo Complete Interpretation Summary Normal LV size. Left ventricular systolic function is normal. The estimated ejection fraction is 60 %. Normal diastololic function. Structurally normal valves. Ordering Physician: Bry Pelaez Referring Physician: Kenzie Torrez Performed By: Leanna Mojica RCS
== END | disposition home or self-care (01) ==
PROVIDERS: PCP Family Medicine; Visit Provider Internal Medicine Cardiovascular Disease
DX: R07.9 Chest pain, unspecified (principal); Z95.5 Presence of coronary angioplasty implant and graft
CPT/HCPCS: 93306

== ENCOUNTER → 2022-12-06 | Outpatient (CLI) | payer OTHER, SELFPAY ==
[2022-12-06 07:26] LABS: Erythrocyte Sedimentation Rate < 1 mm/hr (0-30)
[2022-12-06 08:11] LABS: CRP < 2.90 mg/L (0.0-3.0)
[2022-12-07 13:07] LABS: Anti-Centromere B Ab <0.2 AI (0.0-0.9); Anti-Chromatin <0.2 AI (0.0-0.9); Anti-Jo <0.2 AI (0.0-0.9); Anti-Scleroderma-70 AB <0.2 AI (0.0-0.9); Anti-dsDNA Ab 4 IU/mL (0-9); RNP Ab <0.2 AI (0.0-0.9); SJOGREN'S Anti-SS-A test > 8.0 AI (0.0-0.9); SJOGREN'S Anti-SS-B test < 0.2 AI (0.0-0.9); Smith Ab <0.2 AI (0.0-0.9)
[2022-12-08 11:08] LABS: Albumin 4.1 g/dL (2.9-4.4); Alpha-1-Globulins 0.2 g/dL (0.0-0.4); Alpha-2-Globulins 0.6 g/dL (0.4-1.0); Cytoplasmic Ab (C-ANCA) <1:20 titer (Neg:<1:20); Endomysial Antibody IgA Negative (Negative); Gamma Globulin 0.9 g/dL (0.4-1.8); Immunoglobulin A 84 mg/dL (87-352); Immunoglobulin E < 2 IU/mL (6-495); Immunoglobulin G 813 mg/dL (586-1602); Immunoglobulin M 162 mg/dL (26-217); PROEL- TOTAL PROTEIN 6.5 g/dL (6.0-8.5); Perinuclear Ab (P-ANCA) <1:20 titer (Neg:<1:20); t-Transglutaminase IgA <2 U/mL (0-3)
== END | disposition home or self-care (01) ==
LOC: LAB 06:39
PROVIDERS: PCP Family Medicine; Referring Provider Internal Medicine Gastroenterology; Visit Provider Internal Medicine Gastroenterology
DX: K51.90 Ulcerative colitis, unspecified, without complications (principal)
CPT/HCPCS: 36415; 82784; 82785; 83516; 84165; 85652; 86140; 86225; 86235; 86255; 86256; 86334

== ENCOUNTER → 2023-01-21 | Outpatient (CLI) | payer OTHER, SELFPAY ==
--- NOTE | 2023-01-21 07:17 | BI_ITS ---
MAMMOGRAPHY - BILATERAL SCREENING REASON FOR EXAM: Female, 53 years old. Routine annual screening examination. PERTINENT HISTORY: Mother with breast cancer. TECHNIQUE: Digital bilateral breast yue (3D mammographic acquisition) in the CC and MLO projections. 2-D mediolateral oblique (MLO) and craniocaudad (CC) views of both breasts were obtained. CAD: Full Field Digital Mammography with Computer Added Detection was performed. COMPARISON: Comparison is made with prior study January 20, 2022 and December 12, 2020. FINDINGS: Breast Composition: The breasts are extremely dense, which lowers the sensitivity of mammography. 2 adjacent nodules are seen in the upper lateral aspect of the right breast. The larger nodule measures 1.9 cm x 1 cm. Correlation with ultrasound is recommended. Stable small bilateral axillary lymph nodes. No other significant abnormalities are identified. BI/SCRN MAMM (CAD)W/YUE BILAT IMPRESSION: Well-defined nodules in the right breast as described. Comparison with ultrasound is recommended for further evaluation. ASSESSMENT CATEGORY: BIRADS Category 0: Incomplete. Need additional imaging evaluation. A letter regarding these results will be sent to the patient by the facility within 30 days. Approximately 10% of breast cancers are not detected by mammography. A normal mammogram should not delay biopsy of a clinically suspicious abnormality. [id number] Electronically Signed: Garrett Reed MD at 15:20 EDT ,
== END | disposition home or self-care (01) ==
PROVIDERS: PCP Family Medicine; Referring Provider Registered Nurse; Visit Provider Registered Nurse
DX: Z12.31 Encounter for screening mammogram for malignant neoplasm of breast (principal); Z80.3 Family history of malignant neoplasm of breast
CPT/HCPCS: 77063; 77067

== ENCOUNTER 2023-01-26 06:12 | Day surgery (SDC) | payer OTHER, SELFPAY ==
[2023-01-26] VITALS (8 sets, daily range): BP systolic 84–102; BP diastolic 48–63; PULSE 63–74; RESP 14; TEMP 36.3–37; O2SAT 98–100; BMI 23.3
[2023-01-26] MEDS: Lactated Ringers 1,000 ML 15 ML IV (06:35)
[2023-01-26 06:36] LABS: Internal QC Validated? YES +Cl - CLEAR BKGD; Pregnancy, Urine Negative Negative
--- NOTE | 2023-01-26 07:14 | HP.PCM_ITS ---
History and Physical Date of Admission: 01/26/23 f/u UC Details: ABDIEL RICHARDSON, is a 52 F who presents to the office today for 6 month f/u ulcerative colitis. She continues to do well since discontinuing azathioprine in Spring 2021, she reports being symptom free.? She had been on azathioprine for over 20 years. She denies abdominal pain, diarrhea or constipation, melena or hematochezia. She remains on probiotics.? Sed rate and CRP were normal in September 2021; fecal lactoferrin was positive, stool calprotectin was negative.? Next colonoscopy will be due December 2022.? She takes amazing greens probiotic supplement daily.? She exercises regularly and eats a very healthy diet. She remains on Plaquenil for lupus. She will be establishing with a new steamer blocker. 01/05/2021 colonoscopy: two 5 mm polyps in sigmoid colon, otherwise colon and examined ileum normal Microscopic diagnosis: Neither hyperplastic nor adenomatous change identified on 1 polyp; the other polyp was colonic mucosa with focal hyperplastic change; no pathology in terminal ileum, ascending colon, transverse colon, or descending colon; rectum biopsy colonic mucosa with focal hyperplastic change ROS Const Constitutional: No fatigue ENT ENT: No difficulty swallowing Gastro GI: Positive for bloating and excessive flatus; No abdominal pain, belching, change in bowel habits, change in stool character, coffee ground emesis, constipation, cramping, diarrhea, heartburn, difficulty swallowing, feeling full early, incontinent of stools, Vomiting blood/hematemesis, Blood in stool, loose stools, Black,tarry stools, nausea/dyspepsia, pain with swallowing, vomiting or other Musc Musculoskeletal: No joint pain Skin Skin: No yellowing of the eye or itchy eyes Psych Psychiatric: No anxiety and No depression Endo Endocrine: No fatigue Aller/Imm Allergy/Immunologic: No itchy eyes Vlad/Lymp Hematologic/Lymphatic: Positive for easy bruising; No easy bleeding Exam Const General: cooperative, healthy appearing and comfortable Orientation: alert, awake and oriented x3 Quality Reporting Tobacco Screening ([facility] 138) Smoking Status: Never smoker Assessment and Plan Assessment and Plan (1) Ulcerative colitis: Status: Chronic Plan: Doing very well, even during a stressful time period, no symptoms. Will update labs, inflammatory markers in blood and stool. Due for colonoscopy in 12/2022. Orders: Orders CRP 04/30/22 K51.90 - Ulcerative colitis, unspecified, without complications Erythrocyte Sed Rate 04/30/22 K51.90 - Ulcerative colitis, unspecified, without complications Calprotectin, Stool 04/30/22 K51.90 - Ulcerative colitis, unspecified, without complications Stool Lactoferrin/WBC 04/30/22 K51.90 - Ulcerative colitis, unspecified, without complications, K58.9 - Irritable bowel syndrome without diarrhea I have examined the patient and the H&P has been reviewed. There are no clinical changes since date of exam.
--- NOTE | 2023-01-26 07:15 | COLBX_PTH ---
PATIENT: ABDIEL RICHARDSON LOC: EN U#:[id number] AGE/SX: 53/F ROOM: RE01/26/[address]: Dr. Lb Sands DO : 1970 BED: DIS: 01/26/2023 SPEC #: [id number] RECD: 01/26/23 11:15 STATUS: JONATHAN REQ #: [id number] ADRIANNA: 01/26/23 07:[address]: Lb Sands DEPT: SURGICAL PATHOLOGY RECD BY: Nakia Tabares ENTERED: 01/26/23 11:41 SP TYPE: COLON BX OTHR DR: Dr. Kenzie Torrez DO Tissues: COLON BIOPSY Procedures: Surgery Specimen Level IV HEADER OPERATION: Colonoscopy with biopsy PRE-OP DIAGNOSIS: Colitis TISSUE SUBMITTED: Random colon biopsy MICROSCOPIC DIAGNOSIS Colon, random biopsy: Fragments of colonic mucosa, no pathologic diagnosis. DAQUAN:bethany 01/27/2023 MICROSCOPIC DESCRIPTION Slides are reviewed. GROSS DESCRIPTION Received in fixative is one container labeled with the patient's name and designated random colon biopsy. The specimen consists of multiple irregular fragments of light gann soft tissue that in aggregate measure 2.0 x 0.5 x 0.1 cm. The specimen is totally submitted in one cassette. / SJ:rg 01/26/2023 TC:4 CPT: 58236
--- NOTE | 2023-01-26 07:38 | OP.CCLET_ITS ---
01/26/2023 Kenzie Torrez [address] [place] [address] Re : Colonoscopy procedure for Amalia Reyes Dear Dr. Torrez This procedure was performed on Thursday, January 26, 2023. My impressions and recommendations are as follows: Impressions : - The entire examined colon is normal. Biopsied. - Stool in the ascending colon and in the cecum. Recommendations : - Discharge patient to home. - Resume previous diet. - Continue present medications. - Await pathology results. - Repeat colonoscopy in 2 years for surveillance. My findings are described in the full procedure note, which is enclosed. If I can be of further assistance, please feel free to contact me at . Sincerely, Lb Sands, 01/26/2023 7:38:29 AM This report has been signed electronically.
--- NOTE | 2023-01-26 07:38 | OP.COLON_ITS ---
Patient Name: Amalia Reyes Procedure Date: 01/26/2023 7:12 AM Date of : 1970 Age: 53 Procedure: Colonoscopy Indications: Left-sided chronic ulcerative colitis Providers: DO Elvin Cronin MD: Kenzie Torrez Medicines: Monitored Anesthesia Care Patient Profile: This is a 53 year old female. Refer to note in patient chart for documentation of history and physical. Last Colonoscopy: within the past 3 years. Complications: No immediate complications. Procedure: Pre-Anesthesia Assessment: - Prior to the procedure, a History and Physical was performed, and patient medications and allergies were reviewed. The risks and benefits of the procedure and the sedation options and risks were discussed with the patient. All questions were answered and informed consent was obtained. Patient identification and proposed procedure were verified by the physician in the pre-procedure area. Mental Status Examination: alert and oriented. Respiratory Examination: clear to auscultation. CV Examination: normal. Prophylactic Antibiotics: The patient does not require prophylactic antibiotics. Prior Anticoagulants: The patient has taken no anticoagulant or antiplatelet agents. ASA Grade Assessment: II - A patient with mild systemic disease. After reviewing the risks and benefits, the patient was deemed in satisfactory condition to undergo the procedure. The anesthesia plan was to use monitored anesthesia care (MAC). Immediately prior to administration of medications, the patient was re-assessed for adequacy to receive sedatives. The heart rate, respiratory rate, oxygen saturations, blood pressure, adequacy of pulmonary ventilation, and response to care were monitored throughout the procedure. The physical status of the patient was re-assessed after the procedure. After I obtained informed consent, the scope was passed under direct vision. Throughout the procedure, the patient's blood pressure, pulse, and oxygen saturations were monitored continuously. The colonoscope was introduced through the anus and advanced to the cecum, identified by appendiceal orifice and ileocecal valve. The colonoscopy was performed without difficulty. The patient tolerated the procedure well. The quality of the bowel preparation was adequate. The ileocecal valve, appendiceal orifice, and rectum were photographed. Scope In: 7:19:49 AM Scope Withdrawal Time 0 hours 6 minutes 51 seconds Scope Out: 7:32:48 AM Total Procedure Duration Time 0 hours 12 minutes 59 seconds Findings: The colon (entire examined portion) appeared normal. Biopsies were taken with a cold forceps for histology. Verification of patient identification for the specimen was done. Estimated blood loss was minimal. A small amount of stool was found in the ascending colon and in the cecum. Impression: - The entire examined colon is normal. Biopsied. - Stool in the ascending colon and in the cecum. Recommendation: - Discharge patient to home. - Resume previous diet. - Continue present medications. - Await pathology results. - Repeat colonoscopy in 2 years for surveillance. Procedure Code(s): --- Professional --- 62251, Colonoscopy, flexible; with biopsy, single or multiple CPT copyright 2021 [employer]. All rights reserved. The codes documented in this report are preliminary and upon resistor winder review may be revised to meet current compliance requirements. Lb Sands DO 01/26/2023 7:38:29 AM This report has been signed electronically. Number of Addenda: 0 Note Initiated On: 01/26/2023 7:12 AM
== END 2023-01-26 08:34 | disposition home or self-care (01) ==
LOC: EN 06:12 → AC 06:13
PROVIDERS: Anesthesiology; PCP Family Medicine; Referring Provider Family Medicine; Visit Provider Internal Medicine Gastroenterology
PROC: 0DJD8ZZ Inspection of Lower Intestinal Tract, Via Natural or Artificial Opening Endoscopic (ICD-10-PCS; CPT 45378; principal; 2023-01-26 07:10)
DX: K51.50 Left sided colitis without complications (principal); Z87.19 Personal history of other diseases of the digestive system; Z86.010 Personal history of colon polyps; Z79.899 Other long term (current) drug therapy; Z79.82 Long term (current) use of aspirin; E78.5 Hyperlipidemia, unspecified; I10 Essential (primary) hypertension
CPT/HCPCS: 45380; 81025; 88305; J7120

== ENCOUNTER → 2023-01-28 | Outpatient (CLI) | payer OTHER, SELFPAY ==
--- NOTE | 2023-01-28 13:59 | US_ITS ---
STUDY: ULTRASOUND BREAST - RIGHT REASON FOR EXAM: Female, 53 years old. Abnormal screening mammogram. TECHNIQUE: Axial and longitudinal images of the RIGHT breast were performed with a high resolution ultrasound transducer. # OF IMAGES: 15 COMPARISON: Comparison is made with prior mammogram dated January 21, 2023 and prior sonogram of the right breast dated June 10, 2017. FINDINGS: RIGHT Breast: The upper outer quadrant of the right breast was examined with ultrasound. Multiple cysts are seen. The largest cyst measures 2.1 cm x 1.9 cm x 1.4 cm. This is at the 10:00 position of the breast at 3 cm from the nipple. There is also evidence of a 1.1 cm x 1.27 x 1 cm predominantly cystic structure in the retroareolar region of the right breast with low level echoes within it. This may represent an hemorrhagic cyst. US/Breast Limited Unilateral IMPRESSION: Multiple cysts are seen in the right breast as described. Findings suggestive of a 1.1 cm x 1.2 cm x 1 cm hemorrhagic cyst in the retroareolar region of the breast. ASSESSMENT CATEGORY: BIRADS Category 2: Benign. A letter regarding these results will be sent to the patient by the facility within 30 days. Electronically Signed: Garrett Reed MD at 14:59 EDT ,
== END | disposition home or self-care (01) ==
PROVIDERS: PCP Family Medicine; Referring Provider Registered Nurse; Visit Provider Registered Nurse
DX: R92.8 Other abnormal and inconclusive findings on diagnostic imaging of breast (principal)
CPT/HCPCS: 76642

== ENCOUNTER 2023-04-19 11:26 | Day surgery (SDC) | payer OTHER, SELFPAY ==
[2023-04-06 07:39] LABS: Absolute Neutrophil Count 4.1 X10^3/uL (2.0-7.7); Basophil# 0.05 X10^3/uL; Basophil% 0.8 % (0-1); Eosinophil# 0.25 X10^3/uL; Eosinophils% 4.1 % (0-5); Hematocrit 40.6 % (37-47); Hemoglobin 13.5 g/dL (12.0-15.0); Lymphocyte % 19.7 % (19-41); Mean Corp Hgb Conc 33.3 g/dL (32-36); Mean Corpuscular Hgb 32.1 pg (27.0-32.0); Mean Corpuscular Volume 96.4 fL (81-99); Mean Platelet Vol. 9.3 fl (6.2-12.0); Monocyte# 0.53 X10^3/uL; Monocyte% 8.7 % (0-10); NRBC Flagged by Analyzer 0 % (0-5); Neutrophil # 4.05 X10^3/uL (2.7-7.7); Neutrophil % 66.5 % (47-70); Platelet Count 255 K/mm3 (150-450); RBC Distribution Width CV 11.8 % (11.6-14.6); RBC Distribution Width SD 41.7 fl (35.1-43.9); Red Blood Count 4.21 M/mm3 (4.2-5.4); White Blood Count 6.1 K/mm3 (4.4-11.0)
[2023-04-06 08:17] LABS: ALB/GLOB Ratio 1.4 RATIO (0.9-2.4); AST(SGOT) 28 U/L (15-37); Alanine Aminotransfer ALT/SGPT 34 U/L (13-56); Albumin, Serum 3.8 g/dL (3.2-5.0); Alkaline Phosphatase 66 U/L (45-117); Anion Gap 2 (5-15); BUN 16 mg/dL (7-18); BUN/Creat Ratio 19.9 RATIO (10-20); Calcium,Total 9.8 mg/dL (8.5-10.1); Chloride 109 mmol/L (98-107); Creatinine, Serum 0.81 mg/dL (0.55-1.02); EST Glomerular Filtration Rate 79 mL/min (>60); Est Glom Filt Rate - Afr Amer 96 mL/min (>60); Globulin 2.8 g/dL (2.2-4.2); Glucose 103 mg/dL (74-106); Protein, Total 6.6 g/dL (6.4-8.2); Sodium Level 140 mmol/L (136-145)
[2023-04-19] VITALS (8 sets, daily range): BP systolic 100–124; BP diastolic 56–69; PULSE 66–82; RESP 16–18; TEMP 36.4–37.3; O2SAT 95–100; BMI 23.6
[2023-04-19] MEDS: Lactated Ringers 1,000 ML 15 ML IV (11:53)
[2023-04-19 12:00] LABS: Internal QC Validated? YES +Cl - CLEAR BKGD; Pregnancy, Urine Negative Negative; Record Kit Lot#,Urine Preg HCG0000667200
--- OUTSIDE RECORDS SUMMARY | 2023-04-19 12:05 | XMS RPT_ITS | CCD ---
Author Name Unknown Address [address] [place] [address] Organization [facility] Care Team Providers Care Sourcing Assistant Name Role Phone [place] MOTOR COACH TOUR OPERATOR, Jazzy S Unavailable Malys DO, Kenzie Unavailable Latanya LAFLEUR, [place] S Unavailable Malys DO, Kenzie Primary Care Provider [phone] Lucrecia Balbuena MD Unavailable Kaylie Leiva MD Unavailable Malys DO, Kenzie Unavailable Latanya LAFLEUR, [place] S Unavailable Malys DO, Kenzie Primary Care Provider Lucrecia Balbuena MD Unavailable Kaylie Leiva MD Unavailable Malys DO, Kenzie Unavailable Latanya LAFLEUR, [place] S Unavailable Malys DO, Kenzie Primary Care Provider Lucrecia Balbuena MD Unavailable MALYS, KENZIE Primary Care Unavailable MALYS, KENZIE Referring Unavailable KAYLIE LEIVA Attending Unavailable MALYS, KENZIE Primary Care Unavailable MALYS, KENZIE Referring Unavailable KAYLIE LEIVA Attending Unavailable SELF, SELF Referring Unavailable MALYS, KENZIE Primary Care Unavailable ZAYNAB LEAL Attending Unavailable Allergies Allergy Classification Reported Allergen(s) Allergy Type Date of Onset Reaction(s) Facility (1 source) sulfamethoxazole / trimethoprim drug allergy 04-29-19 [facility] (1 source) traMADol drug allergy 04-29-19 17 [facility] (2 sources) Colchicine Drug Allergy 01-09-20 19 [facility] (3 sources) Hmg-Coa Reductase Inhibitors (Statins) Propensity to adverse reactions to drug 04-17-19 19 Abdominal Discomfort [facility] (3 sources) Omeprazole Drug Allergy 05-04-19 19 [facility] (3 sources) Sulfonamides (Antibiotic) Propensity to adverse reactions to drug 04-17-19 19 Nausea and Vomiting, Tachycardia [facility] (3 sources) traMADol Drug Allergy 04-17-19 19 Nausea and Vomiting, Dizzy/Vertigo [facility] (1 source) Colchicine Drug Allergy 01-09-20 19 Diarrhea [facility] Medications Current Medications Medication Drug Class(es) Dates Sig (Normalized) Sig (Original) aspirin 81 mg chewable tablet (3 sources) Platelet Aggregation Inhibitor, Nonsteroidal Anti-inflammatory Drug aspirin 81 MG Chew Tab chewable tablet Chew 1 tablet daily every morning. 0 Active busPIRone hydrochloride 5 mg oral tablet (2 sources) take 1 tablet by mouth once busPIRone 5 MG tablet Take 1 tablet by mouth once. 0 Active cholecalciferol 0.05 mg oral capsule (3 sources) Vitamin D Start: 1 Cholecalciferol 50 MCG (1999 UT) capsule Take by mouth. 0 01/09/2021 Active clopidogrel 75 mg oral tablet (3 sources) P2Y12 Platelet Inhibitor Start: 9 take 1 tablet by mouth once daily clopidogrel 75 MG Tab tablet Take 1 tablet by mouth daily. 30 tablet 2 05/06/2018 Active ezetimibe 10 mg oral tablet (3 sources) Dietary Cholesterol Absorption Inhibitor take 1 tablet by mouth once daily ezetimibe 10 MG tablet Take 1 tablet by mouth daily. 0 Active Folic Acid (3 sources) take 400 ug by mouth once daily FOLIC ACID PO Take 400 mcg by mouth daily. 0 Active hydroxychloroquine sulfate 200 mg oral tablet (5 sources) Antimalarial, Antirheumatic Agent Start: 3 take 1.5 tablets by mouth once daily Hydroxychloroquine 200 MG tablet Indications: Subacute cutaneous lupus erythematosus Take 1.5 tablets by mouth daily. Requires annual eye exam/retinal monitoring. 135 tablet 3 07/08/2022 Active Completed/Discontinued Medications Medication Drug Class(es) Dates Sig (Normalized) Sig (Original) amoxicillin 875 mg / clavulanate 125 mg oral tablet (1 source) Penicillin-class Antibacterial Start: 04-29-2016 End: 05-06-2016 AMOXICILLIN-POT CLAVULANATE 875-125 MG TABS Take one tab Twice daily AMOXICILLIN-POT CLAVULANATE [id number] Tim REESE azaTHIOprine 50 mg oral tablet (4 sources) Purine Antimetabolite Start: 09-23-2020 End: 01-10-2023 take 2 tablets by mouth at bedtime azaTHIOprine (Imuran) 50 MG tablet Take 2 tablets by mouth at bedtime. 60 tablet 3 09/23/2020 01/10/2023 Discontinued Problems Active Problems Problem Classification Problem Date Documented Da te Episodic/Chronic Coronary atherosclerosis and other heart disease (9 sources) Coronary atherosclerosis; Translations: [Atherosclerotic heart disease of [place] coronary artery with unstable angina pectoris] Onset: 04-17-2018 04-17-2018 Chronic Essential hypertension (3 sources) Essential hypertension; Translations: [Essential (primary) hypertension] Onset: 04-17-2018 04-17-2018 Chronic Other aftercare (2 sources) Patient encounter status; Translations: [Encounter for therapeutic drug level monitoring] Episodic Other aftercare (2 sources) Drug therapy finding; Translations: [Other roasterman (current) drug therapy] Episodic Other inflammatory condition of skin (4 sources) Subacute cutaneous lupus erythematosus; Translations: [Subacute cutaneous lupus erythematosus] Onset: 07-08-2022 Chronic Other inflammatory condition of skin (1 source) Subacute cutaneous lupus erythematosus; Translations: [Subacute cutaneous lupus erythematosus] Onset: 07-08-2022 Chronic Regional enteritis and ulcerative colitis (3 sources) Ulcerative colitis; Translations: [Ulcerative colitis, unspecified, without complications] Onset: 04-17-2018 04-17-2018 Chronic Past or Other Problems Problem Classification Problem Date Documented Date Episodic/Chronic Immunizations and screening for infectious disease (8 sources) Antibody studies abnormal; Translations: [Other specified abnormal immunological findings in serum] Onset: 06-12-2018 Episodic Nonspecific chest pain (3 sources) Chest pain; Translations: [Chest pain, unspecified] Onset: 04-17-2018 04-17-2018 Episodic Other aftercare (3 sources) Long-term current use of immunosuppressive drug; Translations: [Other custodial (current) drug therapy] Onset: 06-12-2018 06-12-2018 Episodic Other aftercare (2 sources) Other custodial (current) drug therapy; Translations: [Other roasterman (current) drug therapy] Onset: 07-08-2022 Episodic Other aftercare (2 sources) Encounter for therapeutic drug level monitoring; Translations: [Encounter for therapeutic drug level monitoring] Onset: 07-08-2022 Episodic Other skin disorders (3 sources) Eruption; Translations: [Rash and other nonspecific skin eruption] Onset: 06-12-2018 06-12-2018 Episodic Other upper respiratory infections (1 source) Acute maxillary sinusitis; Translations: [Acute maxillary sinusitis, unspecified] Onset: 04-07-2016 04-29-2016 Episodic Results Test Name Value Interpretation Reference Range Facil ity Vital Signs Date Time Vital Sign Value Performing Clinician Facility 01-10-2023 10:48-0400 Body mass index (BMI) [Ratio] 23.88 kg/m2 Zaynab Leal MD Work Phone: [facility] 01-10-2023 10:48-0400 Body weight 57.34 kg Zaynab Leal MD Work Phone: [facility] 01-10-2023 10:48-0400 Diastolic blood pressure 68 mm[Hg] Zaynab Leal MD Work Phone: [facility] 01-10-2023 10:48-0400 Heart rate 91 /min Zaynab Leal MD Work Phone: [facility] 01-10-2023 10:48-0400 SaO2% (BldA) [Mass fraction] 99 % Zaynab Leal MD Work Phone: [facility] 01-10-2023 10:48-0400 Systolic blood pressure 112 mm[Hg] Zaynab Leal MD Work Phone: [facility] 07-08-2022 15:20-0400 Body height 154.9 cm Kaylie Leiva MD Work Phone: [facility] 07-08-2022 15:20-0400 Body mass index (BMI) [Ratio] 26.04 kg/m2 Kaylie Leiva MD Work Phone: [facility] 07-08-2022 15:20-0400 Body weight 62.51 kg Kaylie Leiva MD Work Phone: [facility] 07-08-2022 15:20-0400 Diastolic blood pressure 70 mm[Hg] Kaylie Leiva MD Work Phone: [facility] 07-08-2022 15:20-0400 Heart rate 81 /min Kaylie Leiva MD Work Phone: [facility] 07-08-2022 15:20-0400 Respiratory rate 16 /min Kaylie Leiva MD Work Phone: [facility] 07-08-2022 15:20-0400 SaO2% (BldA) [Mass fraction] 96 % Kaylie Leiva MD Work Phone: [facility] 07-08-2022 15:20-0400 Systolic blood pressure 110 mm[Hg] Kaylie Leiva MD Work Phone: [facility] 09-29-2021 08:42-0400 Body height 154.9 cm Kaylie Leiva MD Work Phone: [facility] 09-29-2021 08:42-0400 Body mass index (BMI) [Ratio] 25.36 kg/m2 Kaylie Leiva MD Work Phone: [facility] 09-29-2021 08:42-0400 Body weight 60.87 kg Kaylie Leiva MD Work Phone: [facility] 09-29-2021 08:42-0400 Diastolic blood pressure 72 mm[Hg] Kaylie Leiva MD Work Phone: [facility] 09-29-2021 08:42-0400 Heart rate 61 /min Kaylie Leiva MD Work Phone: [facility] 09-29-2021 08:42-0400 Respiratory rate 14 /min Kaylie Leiav MD Work Phone: [facility] 09-29-2021 08:42-0400 SaO2% (BldA) [Mass fraction] 97 % Kaylie Leiva MD Work Phone: [facility] 09-29-2021 08:42-0400 Systolic blood pressure 118 mm[Hg] Kaylie Leiva MD Work Phone: [facility] 04-29-2016 08:09-0500 BMI (Body Mass Index) 26.75 kg/m2 Jazzy Diaz NP [facility] 04-29-2016 08:09-0500 Body Temperature 98.1 [degF] Jazzy Diaz NP [facility] Care 04-29-2016 08:09-0500 BP Diastolic 72 mm[Hg] Jazzy Diaz NP [facility] men's Care 04-29-2016 08:09-0500 BP Systolic 126 mm[Hg] Jazzy Diaz MOTOR COACH TOUR OPERATOR [facility] men's [facility] 04-29-2016 08:09-0500 BSA (Body Surface Area) 1.63 m2 Jazzy Diaz NP [facility] 04-29-2016 08:09-0500 Height 154.94 cm Jazzy Diaz NP [facility] men's Care 04-29-2016 08:09-0500 Pulse (Heart Rate) 71 /min Jazzy Diaz NP [facility] 04-29-2016 08:09-0500 Respiratory Rate 16 /min Jazzy Diaz NP [facility] 04-29-2016 08:09-0500 Weight 64.23 kg Jazzy Diaz NP [facility] men's Care Encounters Encounter Date Encounter Type Care Provider Facility Start: 01-10-2023 ambulatory SELF SELF Facility:[facility] Start: 01-10-2023 End: 01-10-2023 Office outpatient visit 25 minutes Zaynab Leal MD Work Phone: [facility] [place] Procedures Date Procedure Procedure Detail Performing Clinician Start: 04-17-2018 Lipid 1996 panel - S rober or Plasma Kaylie Leiva MD Work Phone: Plan of Treatment Date Care Activity Detail Author Start: 04-17-2023 Fasting lipid profile LIPID SCREENIN G [facility] Start: 04-17-2023 Lipid panel LIPID SCREENING [facility] Start: 12-10-2022 Influenza vaccination INFLUENZA VACC INE (#1) [facility] Start: 07-08-2022 End: 07-09-2023 DSDNA ANTIBODY [facility] Immunizations Immunization Date Immunization Notes Care Provider Fa cility 01-06-2018 Influenza Vaccine Preservative Free Kaylie Leiva MD Work Phone: [facility] 01-06-2018 influenza virus vaccine, unspecified formulation Kaylie Leiva MD Work Phone: [facility] 01-05-2017 Influenza Vaccine Preservative Free Kaylie Leiva MD Work Phone: [facility] 02-08-2013 Influenza Vaccine Preservative Free Kaylie Leiva MD Work Phone: [facility] 01-14-2009 Influenza Vaccine Nasal Sabi randee Leal MD Work Phone: [facility] 01-14-2009 influenza virus vaccine, live, attenuated, for intranasal use Kaylie Leiva MD Work Phone: [facility] Payers Date Payer Category Payer Private Health Insurance AERANDEE ARGUETA [id number] 2022-Present [address] [place] [id number] 2022 Private Health Insurance [id number] 2018 Unknown [employer] [facility] [employer] [id number] 2018-Present [address] [address] [place] [address] [id number] 1970 Unknown [id number] 1970 Unknown [id number] 1970 Unknown [id number] Social History Date Type Detail Facility Start: 04-18-2018 End: 07-08-2022 Tobacco smoking status NHIS Never smoked tobacco [facility] Start: 04-18-2018 End: 07-08-2022 Tobacco use and exposure Smokeless tobacco non-user [facility] Start: 09-29-2021 End: 01-10-2023 Alcohol intake Current drinker of alcohol (finding) [facility] Start: 09-29-2021 End: 01-10-2023 Alcohol intake [facility] Start: 1970 Sex Assigned At Not on file O [facility] Start: 01-10-2023 Tobacco use panel [facility] Start: 04-17-2018 Gender identity Identifies as female gender (finding) [facility] History of Present illness Narrative 01-10-2023 Zaynab Leal MD - 01/10/2023 11:00 AM Reid Mckeon LPN - 01/10/2023 11:00 AM VALERIETAyah Allen MD - 01/10/2023 11:00 AM EDT Note Date & Type Note Facility 01-10-2023 History of Present illness Narrative [facility] Return Visit Chief Complaint Chief Complaint Patient presents with New Patient History of Present Illness Amalia Richardson is a 53 y.o. female seen in clinic today for follow up. Interval History Doing well. Has mild photosensitivity (flu-like sx). No recent rashes. UC remains in remission as far as she is aware - has surveillance scopes coming up soon. Remains off azathioprine. Continues on HCQ 300 daily Recently had her eye exam which she reports was normal. No raynaud's, oral ulcers, hair loss, current rashes, chest pain, dysphagia, lymph node swelling. Rheumatologic History Hx SCLE on HCQ. SSA+, MEJIA negative, mild hypocomplementemia since resolved. Prev on azathioprine for UC, dc'd in 07/2021 due to IBD in clinical remission per GI (Dr. Sands ([place] Hx of microscopic hematuria prev followed with Dr Templeton & Mateo, no biopsy recommended. Review of Systems ROS is negative except as noted in HPI. Allergies, Past Medical, Surgical, Family and Social History: Reviewed in EMR. Physical Exam BP 112/68 (BP Location: Left arm, BP Position: Sitting) Pulse 91 Wt 57.3 kg (126 lb 6.4 oz) SpO2 99% BMI 23.88 kg/m Smoking Status Never Body mass index is 23.88 kg/m . General/Constitutional: Well-developed, well-nourished, no acute distress HEENT: No conjunctival injection. No oral ulcers. Neck: No lymphadenopathy Pulmonary: CTAB, no wheezing or rales Cardiovascular: Normal rate, regular rhythm, no murmurs, extremities are warm Integumentary: Skin is warm and dry, no rash Musculoskeletal: Upper extremities: Normal ROM shoulders, elbows and wrists. No effusions. Hands: normal ROM, MCPs, PIPs, DIPs without effusions or synovitis. Lower extremities: Normal ROM knees, ankles. No effusions. Pertinent Labs/Radiology Recent labs and imaging reviewed in the medical record. MEJIA IFA negative SSA+ dsDNA 6 SSB, DEVELOPMENT CONSULTANT, [place] negative Anti-histone negative Reviewed outside labs from her GI doctor on patient's device showing normal WBC, Hgb, plt, LFTs, creatinine, UA without proteinuria, normal ESR/CRP Assessment/Plan Assessment: Amalia Richardson is seen in clinic today for follow up. 1. Hx of SCLE SSA+ mild hypocomplementemia - resolved No active symptoms besides photosensitivity. Inflamm markers & counts recently normal, UA without proteinuria, etc. Nothing to suggest SLE or sjogren's at this time. SCLE associated with +SSA and can have negative MEJIA - continue HCQ 300mg daily, yearly eye exams - sun protection - continue with regular derm follow up - let us know if any new symptoms come up - repeat labs in 6mo 2. Hx of UC Follows with GI. Currently off medication 3. Hx of coronary artery disease Hx of single artery bypass graft & 2 stents. Apparently runs in the family. Remains on zetia & crestor, plavix, aspirin Amalia was seen today for new patient. 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 Regarding general care, we appreciate the primary care physician's continuing to follow the patient regarding cancer screening studies and preventative care that are appropriate for age and clinical status. Amalia Richardson was seen and discussed with attending channel account manager Ayah Allen MD. Zaynab Leal MD Rheumatology Fellow This nurse verified pts name and . I saw and independently examined the patient on 01/10/2023. I agree with the history, examination, and medical decision making as documented by the resident/fellow in their note. Pt with SCLE, +SSA, controlled on hydroxychloroquine doing well currently. No recurrence of CAD s/p stent on dual antiplatelet therapy per cardiology. No recurrence of UC symptoms after coming off AZA. Will monitor on current treatment. Ayah Allen MD Cloth Pattern Makerrug dyer Department of Internal Medicine, Division of Rheumatology [place], [place] documented in this encounter [facility] History of Present illness Narrative 07-08-2022 Maisha Orozco RN - 07/08/2022 3:40 PM EDJustin Leiva MD - 07/08/2022 3:40 PM EDT Note Date & Type Note Facility 07-08-2022 History of Present illness Narrative Patient verified name and date of Encounter date: 07/08/2022 Service location: [facility] Chief Complaint: Chief Complaint Patient presents with Follow-up Patient permits daughter to accompany her to this visit and discuss her medical conditions. 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 Has been off of azathioprine (previously on this per her GI provider for ulcerative colitis) since 07/2021. 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 Tolerating hydroxychloroquine without reported side effects; aware of need for annual eye exam/retinal screening and states cleared for continuation by her fiberglass dowel drawing operator/metaphysician. Denies new concerns at this time. Note: Follows with GI Dr. Friend ([place]) for ulcerative colitis. Pertinent Symptoms (per patient): Fever: no Visual disturbance: no Headache: no Worsened alopecia: no Oral/nasal ulcers: no Sicca: no Pleuritic chest pain: no Hematuria: hx of chronic microscopic, followed by nephrology Dr. Templeton Dysuria: no Arthralgia: no Raynaud's: no Rash: see above Other Associations: Lupus nephritis (biopsy confirmed): no Miscarriages: no Thrombotic events: no Current rheumatologic/related medications: -hydroxychloroquine 300 mg daily Prior rheumatologic/related medications: -azathioprine (per outside gi) Medications: Current Outpatient Medications Medication Sig aspirin 81 MG Chew Tab chewable tablet Chew 1 tablet daily every morning. busPIRone 5 MG tablet Take 1 tablet by mouth once. Cholecalciferol 50 MCG (2000 UT) capsule Take by mouth. clopidogrel 75 MG Tab tablet Take 1 tablet by mouth daily. ezetimibe 10 MG tablet Take 1 tablet by mouth daily. FOLIC ACID PO Take 400 mcg by mouth daily. Hydroxychloroquine 200 MG tablet ALTERNATE BY TAKING 2 TABS BY MOUTH AND 1 TAB EVERY OTHER DAY. REQUIRES ANNUAL EYE EXAM Hydroxychloroquine 200 MG tablet Alternate 400 mg and 200 mg every other day. Requires annual eye exam/retinal monitoring. lisinopril 5 MG tablet Take 1 tablet by mouth 2 times daily. metoprolol succinate 25 MG tablet XL Take 1 tablet by mouth daily every morning. rosuvastatin 5 MG Tab per tablet Take 1 tablet by mouth every Tuesday, Tuesday and Tuesday. (Patient taking differently: Take 1 tablet by mouth every Tuesday, Tuesday and Tuesday. At bedtime) azaTHIOprine (Imuran) 50 MG tablet Take 2 tablets by mouth at bedtime. (Patient taking differently: Take 100 mg by mouth once.) Allergies: She is allergic to colchicine, statins, sulfa antibiotics, tramadol, and omeprazole. Physical Exam: BP 110/70 (BP Location: Left arm, BP Position: Sitting) Pulse 81 Resp 16 Ht 1.549 m (5' 1 ) Wt 62.5 kg (137 lb 12.8 oz) SpO2 96% BMI 26.04 kg/m Smoking Status Never Body mass index is 26.04 kg/m . GEN - adult female who is awake and alert; in no acute distress CV - regular rate and rhythm, s1/s2 auscultated RESP - breath sounds auscultated bilaterally; non-labored breathing MSK - no observed or palpated joint swelling or tenderness of the bilateral hand dip/pip/ip/mcp/carpal, elbow, shoulder, knee, ankle, or foot dip/pip/ip/mtp/tarsal joints SKIN - warm throughout extremities, without visible cyanosis; no malar or upper extremity rash DISEASE ACTIVITY SUMMARY: 09/29/2021 8:00 AM 02/24/2021 11:00 AM 09/23/2020 10:00 AM 06/10/2020 8:00 AM 2019 1:00 PM Rheumatology Morning Stiffness (Minutes) 0min-15min no stiffness no stiffness no stiffness no stiffness Patient Function Score 0 0 0 0 0 Patient Pain Score 0 0 0 0 0.5 Patient Disease Activity 0.5 0 1 2 2 Rapid Three Autocalculation: 0.5 0 1 2 2.5 REVIEW OF DATA: Lab Results Component Value Date WBC 5.21 09/29/2021 HGB 14.0 09/29/2021 HCT 41.5 09/29/2021 PLATELET 273 09/29/2021 MCV 97.0 09/29/2021 Lab Results Component Value Date BUN 12 09/29/2021 CREATSERUM 0.77 09/29/2021 BUNCREARATIO 16 09/29/2021 GFR >90 09/29/2021 GFRAA >=60 02/24/2021 Serum creatinine: 0.77 mg/dL 09/29/21 0936 Estimated creatinine clearance: 72 mL/min Lab Results Component Value Date ALT 21 09/29/2021 AST 24 09/29/2021 ALKPHOS 71 09/29/2021 BILITOTAL 0.8 09/29/2021 BILIDIRECT 0.2 09/29/2021 Lab Results Component Value Date SEDRATE 2 09/29/2021 Lab Results Component Value Date CRP <0.20 09/29/2021 No results found for: MEJIA, ANAQUANTITA Lab Results Component Value Date TSH 2.130 2019 Lab Results Component Value Date ANAIFA Negative 04/19/2018 No results found for: ANAMULTI, ANACOMMENT Lab Results Component Value Date SMITHAB Negative 04/19/2018 RNPANTIBODY Negative 04/19/2018 SSAANTIBODY POSITIVE (A) 04/19/2018 SSBANTIBODY Negative 04/19/2018 Lab Results Component Value Date DSDNAAB Indeterminate (A) 09/29/2021 DSDNAABQUANT 6 (H) 09/29/2021 Lab Results Component Value Date ANTIHISAB <1.0 04/19/2018 No results found for: ANTICARDIGA, ANTICARDIGG, ANTICARDIGM, B2GP1G, B2GP1M, B2GP1D, LUPUSINTERP Lab Results Component Value Date SPGRVTYUR 1.018 09/29/2021 SPGRVTYUR 1.018 09/29/2021 GLUCOSEURINE Negative 09/29/2021 GLUCOSEURINE Negative 09/29/2021 KETONESURINE Negative 09/29/2021 KETONESURINE Negative 09/29/2021 BLOODURINE Negative 09/29/2021 BLOODURINE Negative 09/29/2021 NITRITESURIN Negative 09/29/2021 NITRITESURIN Negative 09/29/2021 LEUKOCESTUR Trace (A) 09/29/2021 LEUKOCESTUR Negative 09/29/2021 WBCURINE 0-5 09/29/2021 WBCURINE 0-5 09/29/2021 RBCURINE 0-2 09/29/2021 RBCURINE 0-2 09/29/2021 BACTERIAURIN ABSENT 09/29/2021 BACTERIAURIN ABSENT 09/29/2021 Lab Results Component Value Date CREATURINE 126.50 09/29/2021 PROTEINURINE Negative 09/29/2021 PROTEINURINE 9 09/29/2021 PROTEINURINE Negative 09/29/2021 PROTCREATRTN 0.071 09/29/2021 Lab Results Component Value Date HIV1X2 Non Reactive 09/29/2021 Lab Results Component Value Date HEPATITISB Negative 02/24/2021 HEPBSURFAB Positive (A) 02/24/2021 HEPBCRABIGGM Negative 02/24/2021 HEPCAB Negative 02/24/2021 Lab Results Component Value Date MTUBERQUANT Negative 09/29/2021 QFTUB2 0.00 09/29/2021 QFUB3 0.00 09/29/2021 QFTUB4 4.54 09/29/2021 QFTUB5 0.04 09/29/2021 Above results reviewed. ASSESSMENT/PLAN: SCLE Hx of microscopic hematuria -previously followed by Dr. Galindo; noted photo-distributed rash with biopsy positive for interface dermatitis; along with +ssa and ds dna ab, but negative mejia by ifa and sm; in absence of other clinical features other than chronic microscopic hematuria to suggest sle, managed with hydroxychloroquine; also previously noted to be on azathioprine per outside gi provider for ulcerative colitis, tapered off in 07/2021 with repeat colonoscopy reportedly showing this condition to be in remission -previously evaluated by nephrology Dr. Templeton 03/2020; no changes recommended to ongoing azathioprine; also no kidney biopsy recommended at that time -continue hydroxychloroquine 300 mg daily based on weight; counseled on importance of annual retinal screening exams -counseled on importance of regular sun screen use with spf 50 or greater -continue follow-up with local wash oil cooler operator -02/2021 hep b immune; 09/2021 hiv and tb screen negative -obtain cbc, bun/cr, lfts, c3/c4, ds dna ab, urinalysis, urine pr/cr, spep -rtc in 5 to 6 months to re-assess for ongoing management; if patient exhibits signs of sle activity, plan to resume azathioprine; otherwise, continue hcq with ongoing monitoring SSA positive -denies significant sicca symptoms currently -02/2021 spep normal; repeat spep COVID 19 vaccine status -patient reports receiving moderna covid 19 vaccination x3 doses Amalia was seen today for follow-up. Diagnoses and all orders for this visit: Subacute cutaneous lupus erythematosus - Hydroxychloroquine 200 MG tablet; Take 1.5 tablets by mouth daily. Requires annual eye exam/retinal monitoring. - C4 COMPLEMENT; Future - C3 COMPLEMENT; Future - DSDNA ANTIBODY; Future - BUN CREA; Future - URINALYSIS REFLEX TO CULTURE; Future - CBC, EDIF, PLATELET; Future - HEPATIC FUNCTION PANEL; Future - URINE PROTEIN/CREA RATIO, RANDOM; Future SS-A antibody positive - PROTEIN ELECTROPHORESIS SERUM, WITH REFLEX; Future Long-term use of hydroxychloroquine Therapeutic drug monitoring Return in about 6 months (around 2023). Regarding general health care, appreciate the primary care physician's provision of continued medical management and preventative care, including screening studies appropriate for age and clinical status. Kaylie Leiva MD Instructor Division of Rheumatology [facility] documented in this encounter [facility] Instructions 07-08-2022 Patient Instructions Note Date & Type Note Facility 07-08-2022 Instructions Kaylie Leiva MD - 07/08/2022 3:40 PM EDT Return to clinic in 6 months. (Please note: Dr. Leiva will no longer be at [facility] in the upcoming months) If Dr. Leiva is unavailable in the anticipated time frame of follow-up indicated above, please call [facility] ( ) to schedule an appointment with another available Fitting Room Supervisor at this location. documented in this encounter [facility] Instructions 09-29-2021 Patient Instructions Note Date & Type Note Facility 09-29-2021 Instructions Kaylie Leiva MD - 09/29/2021 9:03 AM EDT Please be advised: For your next visit, I anticipate you will be seeing a different rheumatology provider (along with Dr. Bashir), as I will no longer be in this clinic. As far as I am aware, they do not have schedules for the new rheumatology providers yet; please call [facility] ( ) at the end of 09/2021 to schedule your next appointment in 02/2022 with the new provider. After that time, please direct medication refill requests to your new provider. documented in this encounter [facility] History of Present illness Narrative 09-29-2021 Kaylie Leiva MD - 09/29/2021 8:40 AM EDT Note Date & Type Note Facility 09-29-2021 History of Present illness Narrative Encounter date: 09/29/2021 Service location[facility] Chief Complaint: Chief Complaint Patient presents with Follow-up Subjective/Interval History: Since last rheumatology clinic visit, denies recurrence of diffuse rash associated with prior episodes of SCLE. Experienced sunburn of the face over the past weekend when she forgot to re-apply sunscreen. States she was weaned off of azathioprine for ulcerative colitis by her GI Dr. Friend ([place]) in 07/2021. 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 Denies new concerns at this time. Pertinent Symptoms (per patient): Fever: no Visual disturbance: no Headache: no Worsened alopecia: no Oral/nasal ulcers: no Sicca: no Pleuritic chest pain: no Hematuria: hx of chronic microscopic, followed by nephrology Dr. Templeton Dysuria: no Arthralgias: no Raynaud's: no Rash: see above Other Associations: Lupus nephritis (biopsy confirmed): no Miscarriages: no Thrombotic events: no Current rheumatologic/related medications: -hydroxychloroquine 400/200 mg alternating days Prior rheumatologic/related medications: -azathioprine (per outside gi) Medications: Current Outpatient Medications Medication Sig aspirin 81 MG Chew Tab chewable tablet Chew 81 mg daily every morning. Cholecalciferol 50 MCG (1999) capsule Take by mouth. clopidogrel 75 MG Tab tablet Take 1 tablet by mouth daily. ezetimibe 10 MG tablet Take 10 mg by mouth daily. FOLIC ACID PO Take 400 mcg by mouth daily. hydroxychloroquine 200 MG tablet Alternate 400 mg and 200 mg every other day. Requires annual eye exam/retinal monitoring. lisinopril 5 MG tablet Take 5 mg by mouth 2 times daily. metoprolol succinate 25 MG tablet XL Take 25 mg by mouth daily every morning. rosuvastatin 5 MG Tab per tablet Take 1 tablet by mouth every Tuesday, Tuesday and Tuesday. (Patient taking differently: Take 5 mg by mouth every Tuesday, Tuesday and Tuesday. At bedtime) azaTHIOprine (Imuran) 50 MG tablet Take 2 tablets by mouth at bedtime. (Patient taking differently: Take 100 mg by mouth once.) Allergies: She is allergic to colchicine, statins, sulfa antibiotics, tramadol, and omeprazole. Physical Exam: BP 118/72 Pulse 61 Resp 14 Ht 1.549 m (5' 1 ) Wt 60.9 kg (134 lb 3.2 oz) SpO2 97% BMI 25.36 kg/m Smoking Status Never Smoker Body mass index is 25.36 kg/m . GEN - adult female who is awake and alert; in no acute distress CV - regular rate and rhythm, s1/s2 auscultated RESP - breath sounds auscultated bilaterally; non-labored breathing MSK - no observed or palpated joint swelling or tenderness of the bilateral hand dip/pip/ip/mcp/carpal, elbow, shoulder, knee, ankle, or foot dip/pip/ip/mtp/tarsal joints SKIN - warm throughout extremities, without visible cyanosis; no malar rash; sunburned appearance of the head DISEASE ACTIVITY SUMMARY: Rheumatology 09/29/2021 02/24/2021 09/23/2020 06/10/2020 2019 Morning Stiffness (Minutes) 0min-15min no stiffness no stiffness no stiffness no stiffness Patient Function Score 0.0 0.0 0.0 0.0 0.0 Patient Pain Score 0.0 0.0 0.0 0.0 0.5 Patient Disease Activity 0.5 0.0 1.0 2.0 2.0 Rapid Three Autocalculation: 0.5 0 1 2 2.5 REVIEW OF DATA: Lab Results Component Value Date WBC 4.45 02/24/2021 HGB 14.9 02/24/2021 HCT 44.1 02/24/2021 PLATELET 257 02/24/2021 MCV 98.0 (H) 02/24/2021 Lab Results Component Value Date BUN 10 02/24/2021 CREATSERUM 0.75 02/24/2021 BUNCREARATIO 13 02/24/2021 GFR >=60 02/24/2021 GFRAA >=60 02/24/2021 Serum creatinine: 0.75 mg/dL 02/24/21 1318 Estimated creatinine clearance: 74 mL/min Lab Results Component Value Date ALT 17 02/24/2021 AST 27 02/24/2021 ALKPHOS 64 02/24/2021 BILITOTAL 0.8 02/24/2021 BILIDIRECT 0.2 02/24/2021 No results found for: SEDRATE Lab Results Component Value Date CRP 159.40 (H) 05/04/2018 No results found for: MEJIA, ANAQUANTITA Lab Results Component Value Date TSH 2.130 2019 Lab Results Component Value Date ANAIFA Negative 04/19/2018 No results found for: ANAMULTI, ANACOMMENT Lab Results Component Value Date SMITHAB Negative 04/19/2018 RNPANTIBODY Negative 04/19/2018 SSAANTIBODY POSITIVE (A) 04/19/2018 SSBANTIBODY Negative 04/19/2018 Lab Results Component Value Date DSDNAAB Indeterminate (A) 02/24/2021 DSDNAABQUANT 8 (H) 02/24/2021 Lab Results Component Value Date ANTIHISAB <1.0 04/19/2018 No results found for: ANTICARDIGA, ANTICARDIGG, ANTICARDIGM, B2GP1G, B2GP1M, B2GP1D, LUPUSINTERP Lab Results Component Value Date SPGRVTYUR 1.005 02/24/2021 GLUCOSEURINE Negative 02/24/2021 KETONESURINE Negative 02/24/2021 BLOODURINE Negative 02/24/2021 NITRITESURIN Negative 02/24/2021 LEUKOCESTUR Negative 02/24/2021 WBCURINE 0-5 02/24/2021 RBCURINE 0-2 02/24/2021 BACTERIAURIN TRACE (A) 02/24/2021 Lab Results Component Value Date CREATURINE 31.04 02/24/2021 PROTEINURINE <4 02/24/2021 PROTEINURINE Negative 02/24/2021 PROTCREATRTN 02/24/2021 Comment: Not Calculated Urine protein less than 4 mg/dl, unable to calculate the Urine Protein/Creat Ratio. Lab Results Component Value Date HIV1X2 Non Reactive 02/24/2021 Lab Results Component Value Date HEPATITISB Negative 02/24/2021 HEPBSURFAB Positive (A) 02/24/2021 HEPBCRABIGGM Negative 02/24/2021 HEPCAB Negative 02/24/2021 Lab Results Component Value Date MTUBERQUANT Negative 02/24/2021 QFTUB2 0.01 02/24/2021 QFUB3 0.01 02/24/2021 QFTUB4 9.97 02/24/2021 QFTUB5 0.03 02/24/2021 Above results reviewed. ASSESSMENT/PLAN: SCLE Hx of microscopic hematuria -previously followed by Dr. Galindo; noted photo-distributed rash with biopsy positive for interface dermatitis; along with +ssa and ds dna ab, but negative mejia by ifa and sm; in absence of other clinical features other than chronic microscopic hematuria to suggest sle, managed with hydroxychloroquine; however, also noted to be in setting of chronic azathioprine use per outside gi provider for ulcerative colitis, tapered off in 07/2021 with repeat colonoscopy reportedly showing this condition to be in remission -previously evaluated by nephrology Dr. Templeton 03/2020; no changes recommended to ongoing azathioprine; also no kidney biopsy -continue hydroxychloroquine 400/200 mg alternating days based on weight; counseled on importance of annual retinal screening exams -per patient, azathioprine tapered off by outside gi ([facility]); if patient exhibits signs of systemic lupus activity, plan to resume this medication for this separate indication -counseled on importance of regular sun screen use with spf 50 or greater -continue follow-up with local wash oil cooler operator -obtain cbc, bun/cr, lfts, c3/c4, ds dna ab, urinalysis, urine pr/cr -rtc in 5 months to re-assess for ongoing management; also provided outside rheumatology referral as she is considering transitioning to provider closer to home SSA positive -denies significant sicca symptoms currently -02/2021 spep normal COVID 19 vaccine status -patient reports receiving moderna covid 19 vaccination x3 doses Amalia was seen today for follow-up. Diagnoses and all orders for this visit: Subacute cutaneous lupus erythematosus - C4 COMPLEMENT; Future - C3 COMPLEMENT; Future - DSDNA ANTIBODY; Future - BUN CREA; Future - URINALYSIS REFLEX TO CULTURE; Future - CBC, EDIF, PLATELET; Future - HEPATIC FUNCTION PANEL; Future - URINE PROTEIN/CREA RATIO, RANDOM; Future - AMB REFERRAL TO RHEUMATOLOGY SS-A antibody positive Therapeutic drug monitoring Return in about 5 months (around 03/01/2022). Regarding general health care, appreciate the primary care physician's provision of continued medical management and preventative care, including screening studies appropriate for age and clinical status. The above was discussed with attending channel account manager Patsy Bashir DO. Diagnoses/recommendations may be modified by the attending physician on attestation. Kaylie Leiva MD Rheumatology Fellow [facility] I, Patsy Bashir saw, examined and discussed the patient on 09/29/[address] Leiva. I agree with the history, examination, and medical decision making as noted/edited above. The clinical exam of the patient shows no evidence of any synovitis or rash. Appears to be sunburned. No disease activity despite stopping AZA per GI. She's to call with any flare ups or rashes. All questions were answered. Patsy Bashir DO Department of Internal Medicine Division of Immunology/Rheumatology documented in this encounter [facility] Evaluation note Note Date & Type Note Facility documented in this encounter [facility] Evaluation note Note Date & Type Note Facility documented in this encounter [facility] Evaluation note Note Date & Type Note Facility documented in this encounter [facility] Reason for referral (narrative) Consultation (Routine) - Patient to Arrange Note Date & Type Note Facility Referral ID Status Reason Start Date Expiration Date V isits Requested Visits Authorized [id number] Patient to Arrange 09/29/2021 10/24/2022 1 1 [facility] Summary Purpose Family History No Family History Records FoundNo Family History Records Found Advance Directives No Advanced Directives Records FoundLatest Code Status on File Code Status Date Activated Date Inactivated Comments Full Code 05/02/2018 11:14 AM Full Code 04/17/2018 10:57 PM 05/02/2018 11:14 AM Latest Code Status on File Code Status Date Activated Date Inactivated Comments Full Code 05/02/2018 11:14 AM Code Status History Code Status Date Activated Date Inactivated Comments Full Code 04/17/2018 10:57 PM 05/02/2018 11:14 AM Additional Source Comments INFORMATION SOURCE (unrecogn ized section and content) DATE CREATED AUTHOR AUTHOR'S ORGANIZ ATION 01/15/2023 [facility] Reason for Visit (unrecogniz ed section and content) Reason Comments Follow-up Reason Comments New Patient Care Teams (unrecognized sec tion and content) Sourcing Assistant Relationship Specialty Start Date End Date Kenzie Torrez DO [address] [place] [id number] PCP - General Family Medicine 04/27/18 Kenzie Torrez DO [address] [place] [phone] Family Medicine 04/18/18 Bry Pelaez MD [address] [facility] [place] [phone] Cardiovascular Disease 04/18/18 Lucrecia Balbuena MD [address] [place] [phone] Urologist Urology 02/25/20 Kaylie Leiva MD [address] [place] [address] Fitting Room Supervisor Rheumatology 07/08/22 Sourcing Assistant Relationship Specialty Start Date End Date Kenzie Torrez DO [address] [place] [phone] PCP - General Family Medicine 04/27/18 Kenzie Torrez DO [address] [place] [place] [phone] Family Medicine 04/18/18 Bry Pelaez MD [address] [place] [phone] Cardiovascular Disease 04/18/18 Lucrecia Balbuena MD [address] [facility] [address] [place] [address] Urologist Urology 02/25/20 FOR RECORDS PERTAINING TO PATIENTS WHO ARE OR HAVE BEEN ENROLLED IN A CHEMICAL DEPENDENCY/SUBSTANCEABUSE PROGRAM, SOME INFORMATION MAY BE OMITTED. This clinical summary was aggregated from multiple sources. Caution should be exercised in using it in the provision of clinical care. This summary normalizes information from multiple sources, and as a consequence, information in this document may materially change the coding, format and clinical context of patient data. In addition, data may be omitted in some cases. CLINICAL DECISIONS SHOULD BE BASED ON THE PRIMARY CLINICAL RECORDS. [employer] provides no warranty or guarantee of the accuracy or completeness of information in this document.
--- NOTE | 2023-04-19 12:25 | RAD_ITS ---
STUDY: X-RAY - LEFT FOOT CLINICAL: Female, 53 years old. FIRST METATARSAL OSTEOTOMY BUNIONECTOMY TECHNIQUE: 2 fluoroscopic spot view(s) of the foot. COMPARISON: None. FINDINGS: 2 screws transfixing the displaced fracture first metatarsal. RAD/Foot min 3 Views IMPRESSION: Please correlate with clinical service. 4 minutes 8 seconds fluoroscopy time. 0.103 cGy centimeter squared Electronically Signed: Olivier Gibson MD at 19:47 EST ,
[2023-04-19] MEDS: Cefazolin 2 GM in 0.9% Normal Saline (100mL Bag) 100 ML IV (12:55)
--- NOTE | 2023-04-19 13:00 | BUN_PTH ---
PATHOLOGY RESULTS PATIENT: ABDIEL RICHARDSON LOC: [facility] [place] U#:[id number] AGE/SX: 53/F ROOM: RE04/19/[address]: Dr. Ramesh Betancourt DPM : 1970 BED: DIS: 04/19/2023 SPEC #: [id number] RECD: 04/20/23 07:25 STATUS: JONATHAN YOKO #: [id number] ADRIANNA: 04/19/23 13:[address]: Ramesh Betancourt DEPT: SURGICAL PATHOLOGY RECD BY: Loly Farmer ENTERED: 04/20/23 07:26 SP TYPE: BUNION OTHR DR: Dr. Kenzie Torrez DO Tissues: Bony tissue, NOS Soft tissues, NOS Procedures: Decalcification bone/plaque Surgery Specimen Level IV HEADER OPERATION: First metatarsal osteotomy, bunionectomy and removal of soft tissue mass PRE-OP DIAGNOSIS: Bunion of left first metatarsal; soft tissue mass left foot TISSUE SUBMITTED: A - Soft tissue mass, left foot, B - Bunion, left foot MICROSCOPIC DIAGNOSIS A. Soft tissue mass of left foot, biopsy: Fibromuscular and fibrofatty tissue with focal chronic inflammation. See comment. B. Bunion of left foot, excision: Osseocartilaginous tissue consistent with bunion with focal reactive change. AM:bethany 04/25/2023 COMMENT A. Focal fibrosis is present. MICROSCOPIC DESCRIPTION Slides are reviewed. GROSS DESCRIPTION A - Received in fixative is one container labeled with the patient's name and designated soft tissue mass left foot. The specimen consists of multiple irregular fragments of gann-brown soft tissue that in aggregate measure 2.5 x 2.0 x 0.3 cm. The specimen is totally submitted in one cassette. B - Received in fixative is one container labeled with the patient's name and designated bunion left foot. The specimen consists of four variable sized pieces of bone measuring in aggregate 2.5 x 2.5 x 0.5 cm. The entire specimen is submitted in one cassette after decalcification. / SJ:bethany 04/20/2023 TC:5 CPT: 36868 x2, 00374
--- NOTE | 2023-04-19 13:00 | PCM.DC ---
Discharge Instructions Diet Discharge Diet: Light diet - advance as tolerated Activity Discharge Activity: May Not Drive Weight Bearing Status: No weight bearing (No weightbearing left foot) Keep extremity elevated above heart level: Left Leg (Keep left foot elevated for at least 50 minutes of every hour) Dressing / Incision Call your doctor if your incision/area has: Continuous Slow Oozing, Sudden Increased Bleeding and Foul Smelling Discharge Call your doctor if you observe: Fever of 101 or Higher, Shortness of breath, Chest pain, Increased palpitations (irregular heartbeat), Calf discomfort and Uncontrolled pain Change Dressing in: do not change dressing Remove Dressing in: do not remove dressing Cleanse incision/area with: Keep Dressing Clean & Dry Follow Up Care Please Follow Up With: Ramesh Betancourt DPM When: follow up in 1 week, sooner if needed. [phone] - Dr. Betancourt's cell [phone] - office Test Results: Test results from this visit will be discussed in further detail at your follow-up appointment, if applicable. Discharge Plan Admission Attending Provider: Ramesh Betancourt Primary Care Provider: Kenzie Torrez Discharge Orders/Prescriptions Prescriptions: New oxycodone-acetaminophen [Percocet] 5-325 mg tablet 1 - 2 tab PO Q6H PRN (Reason: pain) 4 Days Qty: 28 0RF No Action aspirin [Adult Aspirin Regimen] 81 mg tablet,delayed release (DR/EC) 81 mg PO DAILY Qty: 90 3RF hydroxychloroquine [Plaquenil] 200 mg tablet 200 mg PO DAILY Rx Instructions: one tablet alternating two tablets QOD cholecalciferol (vitamin D3) 50 mcg (2,000 unit) capsule 50 mcg PO DAILY buspirone 5 mg tablet 5 mg PO BID clopidogrel 75 mg tablet 75 mg PO DAILY Qty: 90 3RF rosuvastatin 5 mg tablet See Rx Instructions .ROUTE .COMPLEX Qty: 36 4RF Dose Instruction: TAKE 1 TABLET BY MOUTH EVERY TUESDAY, TUESDAY, AND TUESDAY Rx Instructions: TAKE 1 TABLET BY MOUTH EVERY TUESDAY, TUESDAY, AND TUESDAY lisinopril 5 mg tablet 5 mg PO BID Qty: 180 3RF metoprolol succinate 25 mg tablet extended release 24 hr 25 mg PO DAILY Qty: 90 4RF folic acid 1 mg tablet 1 mg PO DAILY Qty: 90 3RF ezetimibe 10 mg tablet See Rx Instructions .ROUTE .COMPLEX Qty: 90 0RF Dose Instruction: TAKE 1 TABLET BY MOUTH ONCE DAILY Rx Instructions: TAKE 1 TABLET BY MOUTH ONCE DAILY famotidine 40 mg tablet 40 mg PO BID Qty: 60 0RF ondansetron 8 mg tablet,disintegrating 8 mg PO Q8H Qty: 90 0RF Referrals / Follow Up: Kenzie Torrez DO [Primary Care Provider] - Disposition Disposition (needs filled in before D/C Order can be placed): Home, Self Care
--- NOTE | 2023-04-19 13:02 | PCM.OPRPT ---
Report of Operation Date of Procedure: 04/19/23 Pre-Operative Diagnosis: Hallux valgus bunion, left foot Soft tissue mass, left foot Post-Operative Diagnosis: Same Surgery/Procedure Performed:: 1st metatarsal osteotomy bunionectomy left foot Excision of soft tissue mass left foot Surgeon: Ramesh Betancourt pattern and chain maker: Rom Type of Anesthesia: Local and MAC Specimen's removed: Bunion from left foot sent to pathology Soft tissue mass from left foot sent to pathology Estimated Blood Loss (mL): 1mL Description of Procedure: Indications: This is a 53 year old female who has left foot pain due to hallux valgus bunion and soft tissue mass. She has trouble with shoes and with activities. She has tried nonsurgical care however her symptoms persist and have progressed. We discussed further options. She elected to proceed with left first metatarsal osteotomy bunionectomy and soft tissue mass excision. This was discussed with her in detail. We reviewed all the possible benefits, risks, goals and expectations. She expressed understanding and agreement. We also reviewed the typical postoperative and expected postoperative course. She expressed understanding and agreement and wanted to proceed forward with surgical intervention. All alternative options were discussed with her and all the possible benefits, risks of the alternative options were discussed with her as well in detail. She expressed understanding and agreement and again want to proceed for surgical intervention. The consent form was reviewed with her and she freely signed them. No guarantees were given or implied. She was cleared from a medical standpoint by her PCP and airport ramp attendant. Operative Procedure: She was brought back into the operating room and was placed onto the operative table in the supine position. She was carefully secured to the operating room table with safety belt around her waist. The patient did receive 2 g of intravenous cefazolin for antibiotic prophylaxis, the patient received MAC anesthesia per the anesthesiologist and then a total of 10 mL of 0.5% bupivacaine plain was given as a regional infiltrative nerve block around the first ray on her left foot after overlying skin was cleansed with 70% isopropyl alcohol. A well-padded pneumatic tourniquet was applied around her left ankle. The left foot was scrubbed, prepped and draped in the usual aseptic fashion. Further attention was directed to the left foot, there was hallux valgus bunion, with medial eminence, some dorsiflexion of the 1st ray, and soft tissue mass just proximal to the 1st metatarsal head. The hallux was abutting into the second toe. The foot was elevated for 3 minutes and the left ankle pneumatic tourniquet was inflated to 250 mmHg. Soft tissue mass excision: Using a #15 scalpel blade, an incision was made overlying the soft tissue mass of the medial 1st metatarsal. Careful dissection was completed down to the mass and it was noted to be lobulated and filled with fluid. The mass appeared to be consistent with a ganglion cyst. The mass was freed and dissected out, and it was excised, there was noted to be yellow jelly like fluid consistent with a ganglion cyst and the stalk was traced to the abductor hallucis tendon, the abductor hallucis muscle was hypertrophied and it was debulked. The excised cyst and muslce were sent to pathology for further evaluation. The site was flushed out with copious amounts of normal saline solution. The skin was reapproximated using 3-0 Monocryl. 1st metatarsal osteotomy bunionectomy: Using a #15 scalpel blade and longitudinal skin incision was made medial distal 1st metatarsal and 1st metatarsal phalangeal joint. Careful dissection was completed down to the first metatarsal and first metatarsophalangeal joint. The capsule of the first metatarsophalangeal joint was incised medially as well as the periosteum of the distal first metatarsal using a #15 scalpel blade and these were carefully partially reflected exposing the distal first metatarsal and the first metatarsal. The first metatarsal head was visualized, synovitis present. There was a medial and dorsal eminence of the 1st metatarsal head. There was noted to be some chronic degenerative changes with thinning of the cartilage present. The dorsal 1st metatarsal eminence was resected using a powered sagittal saw. A transverse osteotomy was made using a powered sagittal saw to the first metatarsal neck just proximal to the sesamoids. The Arthrex MIS jig was inserted in standard fashion, it was held in place using a kwire. The capital fragment was gently and carefully shifted laterally and slightly plantarly reducing the first intermetatarsal angle and reducing the dorsiflexion. The osteotomy site was fixated using rigid open reduction and internal fixation technique using one 4.0mm and one 3.5mm Arthrex fully threaded cannulated screws. The osteotomy was stable and good alignment present, screws intact in good position. Intraoperative fluoroscopy used to confirmed this as well. The jig was removed. It was also noted that the adductor hallucis longus tendon was very tight as well as the lateral capsule and the sesamoidal ligament of the fibular sesamoid. Careful dissection was completed to the distal 1st intermetatarsal space, and the adductor hallucis longus tendon, lateral capsule of the first metatarsal phalangeal joint, and the sesamoidal ligament of the fibular sesamoid were identified, these were gently released using a #15 scalpel blade. The 1st metatarsal shelf was resected. All resected bone was sent to pathology as specimen. The hallux was put through a range of motion, there was good smooth gliding range of motion present. The site was flushed out with copious amounts of normal saline solution. The periosteum and the first metatarsophalangeal joint capsule were carefully reapproximated using 3-0 Vicryl. The subcutaneous tissue layer was carefully reapproximated using 3-0 Vicryl. The skin was carefully reapproximated using 3-0 Monocryl. The pneumatic tourniquet was deflated (total time was 85 minutes). There was immediate return of warmth and perfusion to the foot with CFT < 2 seconds to all toes. The patient tolerated the above procedure well and anesthesia well with no complications. The patient was transported from the operative room to the recovery room with vital signs stable and in good condition. Post operative orders were placed, and post operative instructions were reviewed with the patient and her who was with her today. No weightbearing left foot, keep the dressing clean, dry and intact. Keep foot elevated for at least 50 minutes of every hour. Post operative prescription for Percocet was completed. Grafts/Implants Used: Arthrex cannulated screws Complications None
[2023-04-19] MEDS: Bupivacaine Mpf 0.5% 30 ML VIAL (13:15)
--- NOTE | 2023-04-19 14:57 | RAD_ITS ---
STUDY: X-RAY - LEFT FOOT CLINICAL: Female, 53 years old. POST OP TECHNIQUE: 3 view(s) of the foot. COMPARISON: None. FINDINGS: Normal talus, calcaneus, and tarsal bones. Normal visualized subtalar, talonavicular, calcaneocuboid, tarsal and tarsometatarsal articulations. There is a well-corticated fracture of the first metatarsal with 100% displacement and subcutaneous gas. This is transfixed by 2 screws. Normal metatarsophalangeal joint of the great toe. Normal tibial and fibular sesamoid bones. Normal interphalangeal joint of the great toe. Normal phalanges of the great toe. Normal second through fifth metatarsophalangeal joints. Normal interphalangeal joints and phalanges of the lesser toes. The soft tissue structures are unremarkable. RAD/Foot min 3 Views IMPRESSION: Status post ORIF displaced fracture first metatarsal with local gas consistent with recent surgery. Electronically Signed: Olivier Gibson MD at 17:38 EST ,
== END 2023-04-19 16:30 | disposition home or self-care (01) ==
LOC: SDC 11:29 → AC 11:30
PROVIDERS: Anesthesiology; PCP Family Medicine; Referring Provider Podiatrist; Visit Provider Podiatrist
PROC: (CPT 28292; principal; 2023-04-19 12:45)
DX: M21.612 Bunion of left foot (principal); M32.9 Systemic lupus erythematosus, unspecified; K51.90 Ulcerative colitis, unspecified, without complications; M67.472 Ganglion, left ankle and foot; I25.10 Atherosclerotic heart disease of native coronary artery without angina pectoris; I10 Essential (primary) hypertension; E78.5 Hyperlipidemia, unspecified; Z79.82 Long term (current) use of aspirin; Z79.899 Other long term (current) drug therapy
CPT/HCPCS: 28296; 28090; 01480; 36415; 73630; 76000; 80053; 81025; 85025; 88305; 88311; C1713; J7120; J2405

== ENCOUNTER → 2023-04-23 | Outpatient (CLI) | payer OTHER, SELFPAY ==
--- OUTSIDE RECORDS SUMMARY | 2023-04-23 10:50 | XMS RPT_ITS | CCD ---
Author Name Unknown Address [address] [place] [address] Organization [facility] Care Team Providers Care It Desktop Support Technician Name Role Phone [place] [employer]ERCIAL LITIGATION PARALEGAL, Jazzy S Unavailable Malys DO, Kenzie Unavailable Latanya LAFLEUR, Bry S Unavailable Malys DO, Kenzie Primary Care Provider Lucrecia Balbuena MD Unavailable Kaylie Leiva MD Unavailable Malys DO, Kenzie Unavailable Latanya LAFLEUR, Bry S Unavailable Malys DO, Kenzie Primary Care Provider Lucrecia Balbuena MD Unavailable Kaylie Leiva MD Unavailable Malys DO, Kenzie Unavailable Latanya LAFLEUR, Hamlin S Unavailable Malys DO, Kenzie Primary Care [...] source) sulfamethoxazole / trimethoprim drug allergy 04-29-19 [facility] (1 source) traMADol drug allergy 04-29-19 17 [facility] (2 sources) Colchicine Drug Allergy 01-09-20 19 [facility] Hmg-Coa Reductase Inhibitors (Statins) Propensity to adverse reactions to drug 04-17-19 19 [facility]razole Drug Allergy 05-04-19 [facility] Sulfonamides (Antibiotic) Propensity to adverse reactions to drug 04-17-19 19 Nausea and Vomiting, Tachycardia [facility] (3 sources) traMADol Drug Allergy 04-17-19 19 Nausea and Vomiting, Dizzy/Vertigo [facility] (1 source) Colchicine Drug Allergy 01-09-20 [address] [facility] Medications Current Medications Medication Drug Class(es) [...] Take one tab Twice daily AMOXICILLIN-POT CLAVULANATE [id number] Tim REESE azaTHIOprine 50 mg oral tablet [...] Coronary atherosclerosis; Translations: [Atherosclerotic heart disease of solomon coronary artery with unstable angina pectoris] Onset: 04-17-2018 04-17-2018 Chronic Essential hypertension (3 sources) Essential hypertension; Translations: [Essential (primary) hypertension] Onset: 04-17-2018 04-17-2018 Chronic Other aftercare (2 sources) Patient encounter status; Translations: [Encounter for therapeutic drug level monitoring] Episodic Other aftercare (2 sources) Drug therapy finding; Translations: [Other chcf (current) drug therapy] Episodic Other inflammatory condition [...] current use of immunosuppressive drug; Translations: [Other 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 01-10-2023 10:48-0400 Body weight 57.34 kg Zaynab Leal MD Work Phone: [facility] 01-10-2023 10:48-0400 Diastolic blood pressure 68 mm[Hg] Zaynab Leal MD Work Phone: [facility] 01-10-2023 10:48-0400 Heart rate 91 /min Zaynab Leal MD Work Phone: [facility] 01-10-2023 10:48-0400 SaO2% (BldA) [Mass fraction] 99 % Zaynab Leal MD Work Phone: [facility] 01-10-2023 10:48-0400 Systolic blood pressure 112 mm[Hg] Zaynab Leal MD Work Phone: [facility] 07-08-2022 15:20-0400 Body height 154.9 cm Kaylie Leiva MD Work Phone: [facility] 07-08-2022 15:20-0400 Body mass index (BMI) [Ratio] 26.04 kg/m2 Kaylie Leiva MD Work Phone: [facility] 07-08-2022 15:20-0400 Body weight 62.51 kg Kaylie Leiva MD Work Phone: [facility] 07-08-2022 15:20-0400 Diastolic blood pressure 70 mm[Hg] Kaylie Leiva MD Work Phone: [facility] 07-08-2022 15:20-0400 Heart rate 81 /min Kaylie Leiva MD Work Phone: [facility] 07-08-2022 15:20-0400 Respiratory rate 16 /min Kaylie Leiva MD Work Phone: [facility] 07-08-2022 15:20-0400 SaO2% (BldA) [Mass fraction] 96 % Kaylie Leiva MD Work Phone: [facility] 07-08-2022 15:20-0400 Systolic blood pressure 110 mm[Hg] Kaylie Leiva MD Work Phone: [facility] 09-29-2021 08:42-0400 Body height 154.9 cm Kaylie Leiva MD Work Phone: [facility] 09-29-2021 08:42-0400 Body mass index (BMI) [Ratio] 25.36 kg/m2 Kaylie Leiva MD Work Phone: [facility] 09-29-2021 08:42-0400 Body weight 60.87 kg Kaylie Leiva MD Work Phone: [facility] 09-29-2021 08:42-0400 Diastolic blood pressure 72 mm[Hg] Kaylie Leiva MD Work Phone: [facility] 09-29-2021 08:42-0400 Heart rate 61 /min Kaylie Leiva MD Work Phone: [facility] 09-29-2021 08:42-0400 Respiratory rate 14 /min Kaylie Leiva MD Work Phone: [facility] 09-29-2021 08:42-0400 SaO2% (BldA) [Mass fraction] 97 % Kaylie Leiva MD Work Phone: [facility] 09-29-2021 08:42-0400 Systolic blood pressure 118 mm[Hg] Kaylie Leiva MD Work Phone: [facility] 04-29-2016 08:09-0500 BMI (Body Mass Index) 26.75 kg/m2 Jazzy Diaz NP [facility] 04-29-2016 08:09-0500 Body Temperature 98.1 [degF] Jazzy Diaz NP [facility] 04-29-2016 08:09-0500 BP Diastolic 72 mm[Hg] Jazzy Diaz NP [facility] 04-29-2016 08:09-0500 BP Systolic 126 mm[Hg] Jazzy Diaz COMMERCIAL LITIGATION PARALEGAL [facility] 04-29-2016 08:09-0500 BSA (Body Surface Area) 1.63 m2 Jazzy Diaz NP [facility] 04-29-2016 08:09-0500 Height 154.94 cm Jazzy Diaz NP [facility] 04-29-2016 08:09-0500 Pulse (Heart Rate) 71 /min Jazzy Diaz NP [facility] 04-29-2016 08:09-0500 Respiratory Rate 16 /min Jazzy Diaz NP [facility] 04-29-2016 08:09-0500 Weight 64.23 kg Jazzy Diaz NP [facility] Encounters Encounter Date Encounter Type Care Provider Facility Start: 01-10-2023 ambulatory SELF SELF Facility:[facility] Start: 01-10-2023 End: 01-10-2023 Office outpatient visit 25 minutes Zaynab Leal MD Work Phone: [facility] [place] Procedures Date Procedure Procedure Detail Performing Clinician Start: 04-17-2018 Lipid 1996 panel - S rober or Plasma Kaylie Leiva MD Work Phone: Plan of Treatment Date Care Activity Detail Author Start: 04-17-2023 Fasting lipid profile LIPID SCREENIN G [facility] Start: 04-17-2023 Lipid panel LIPID SCREENING [facility] Start: 12-10-2022 Influenza vaccination INFLUENZA VACC INE (#1) [facility] Start: 07-08-2022 End: 07-09-2023 DSDNA [address] [facility] Immunizations Immunization Date Immunization Notes Care Provider Fa cility 01-06-2018 Influenza Vaccine Preservative Free Kaylie Leiva MD Work Phone: [facility] 01-06-2018 influenza virus vaccine, unspecified formulation Kaylie Leiva MD Work Phone: [facility] 01-05-2017 Influenza Vaccine Preservative Free Kaylie Leiva MD Work Phone: [facility] 02-08-2013 Influenza Vaccine Preservative Free Kaylie Leiva MD Work Phone: [facility] 01-14-2009 Influenza Vaccine Nasal Sabi randee Leal MD Work Phone: [facility] 01-14-2009 influenza virus vaccine, live, attenuated, for intranasal use Kaylie Leiva MD Work Phone: [facility] Payers Date Payer Category Payer Private Health Insurance AERANDEE ARGUETA [id number] 2022-Present [address] [place] [id number] 2022 Private Health Insurance [id number] 2018 Unknown [employer] [facility] [employer] [id number] 2018-Present [address] [address] [place] [address] [id number] 1970 Unknown [id number] 1970 Unknown [id number] 1970 Unknown [id number] Social History Date Type Detail Facility Start: 04-18-2018 End: 07-08-2022 Tobacco smoking status NHIS Never smoked tobacco [facility] Start: 04-18-2018 End: 07-08-2022 Tobacco use and exposure Smokeless tobacco non-user [facility] Start: 09-29-2021 End: 01-10-2023 Alcohol intake Current drinker of alcohol (finding) [facility] Start: 09-29-2021 End: 01-10-2023 Alcohol intake [facility] Start: 1970 Sex Assigned At Not on file [facility] Start: 01-10-2023 Tobacco use panel [facility] Start: 04-17-2018 Gender identity Identifies as female gender (finding) [facility] History of Present illness Narrative 01-10-2023 Zaynab Leal MD - 01/10/2023 11:00 AM Reid Mckeon LPN - 01/10/2023 11:00 AM VALERIETAyah Allen MD - 01/10/2023 11:00 AM EDT Note Date & Type Note Facility 01-10-2023 History of Present illness Narrative [facility] Rhe[facility]ology Clinic Return Visit Chief Complaint Chief [...] in clinical remission per GI (Dr. Sands ([place])). Hx of microscopic hematuria prev followed with [...] MEJIA IFA negative SSA+ dsDNA 6 SSB, MATERIALS SUPERVISOR, Amador negative Anti-histone negative Reviewed outside labs [...] Richardson was seen and discussed with attending tobacco wrapping machine tender Ayah Allen MD. Zaynab Leal MD Rheumatology [...] monitor on current treatment. Ayah Allen MD [employer] Weavercorrection officer head Department of Internal Medicine, Division of Rheumatology [place], [place] documented in this encounter [facility] History of Present illness Narrative 07-08-2022 Maisha Orozco RN - 07/08/2022 3:40 PM EDJustin Leiva MD - 07/08/2022 3:40 PM EDT Note Date & Type Note Facility 07-08-2022 History of Present illness Narrative Patient verified name and date of Encounter date: 07/08/2022 Service location: [facility] Chief Complaint: Chief Complaint Patient presents with Follow-up Patient permits daughter to accompany her to this visit and discuss her medical conditions. 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 Has been off of azathioprine (previously on this per her GI provider for ulcerative colitis) since 07/2021. Sees local azure architect annually. Tolerating hydroxychloroquine without reported side effects; aware of need for annual eye exam/retinal screening and states cleared for continuation by her geosciences faculty member/fire systems inspector. Denies new concerns at this time. Note: [...] 50 or greater -continue follow-up with local azure architect -02/2021 hep b immune; 09/2021 hiv and [...] Leiva MD Instructor Division of Rheumatology [facility] documented in this encounter [facility] Instructions 07-08-2022 Patient Instructions Note Date & Type Note Facility 07-08-2022 Instructions Kaylie Leiva MD - 07/08/2022 3:40 PM EDT Return to clinic in 6 months. (Please note: Dr. Leiva will no longer be at [facility] in the upcoming months) If Dr. Leiva is unavailable in the anticipated time frame of follow-up indicated above, please call [facility] Rheumatology Clinic ( ) to schedule an appointment with another available Gym Instructor at this location. documented in this encounter [facility] Instructions 09-29-2021 Patient Instructions Note Date [...] the new rheumatology providers yet; please call [facility] Rheumat[facility] ( ) at the end of 09/2021 to schedule your next appointment in 02/2022 with the new provider. After that time, please direct medication refill requests to your new provider. documented in this encounter [facility] History of Present illness Narrative 09-29-2021 [...] Dr. Friend ([place]) in 07/2021. Sees local azure architect annually. Denies new concerns at this time. [...] 50 or greater -continue follow-up with local azure architect -obtain cbc, bun/cr, lfts, c3/c4, ds dna [...] status. The above was discussed with attending tobacco wrapping machine tender Patsy Bashir DO. Diagnoses/recommendations may be modified by the attending physician on attestation. Kaylie Leiva MD Rheumatology Fellow [facility] I, Patsy Bashir saw, examined and discussed [...] Division of Immunology/Rheumatology documented in this encounter [facility] Evaluation note Note Date & Type Note Facility documented in this encounter [facility] Evaluation note Note Date & Type Note Facility documented in this encounter [facility] Evaluation note Note Date & Type Note Facility documented in this encounter [facility] Reason for referral (narrative) Consultation (Routine) - Patient to Arrange Note Date & Type Note Facility Referral ID Status Reason Start Date Expiration Date V isits Requested Visits Authorized [id number] Patient to Arrange 09/29/2021 10/24/2022 [address] [facility] Summary Purpose Family History No Family [...] DATE CREATED AUTHOR AUTHOR'S ORGANIZ ATION 01/15/2023 [facility] Reason for Visit (unrecogniz ed section and content) Reason Comments Follow-up Reason Comments New Patient Care Teams (unrecognized sec tion and content) It Desktop Support Technician Relationship Specialty Start Date End Date Kenzie Torrez DO [address] [place] [address] PCP - General Family Medicine 04/27/18 Kenzie Torrez DO [address] [place] [address] Family Medicine 04/18/18 Bry Pelaez MD [address] [facility] [phone] Cardiovascular Disease 04/18/18 Lucrecia Balbuena MD [address] [place] [phone] Urologist Urology 02/25/20 Kaylie Leiva MD [address] [place] [address] Gym Instructor Rheumatology 07/08/22 It Desktop Support Technician Relationship Specialty Start Date End Date Kenzie Torrez DO [address] [place] [phone] PCP - General Family Medicine 04/27/18 Kenzie Torrez DO [address] [place] [phone] Family Medicine 04/18/18 Bry Pelaez MD [address] [place] [phone] Cardiovascular Disease 04/18/18 Lucrecia Balbuena MD [address] [facility] [address] [place] [address] Urologist Urology 02/25/20 FOR RECORDS [...] BE BASED ON THE PRIMARY CLINICAL RECORDS. [employer] provides no warranty or guarantee of the accuracy or completeness of information in this document.
[2023-04-23 11:16] LABS: Absolute Lymphocyte Count 1.17 X10^3/uL (0.83-4.51); Basophil# 0.04 X10^3/uL; Basophil% 0.7 % (0-1); Eosinophils% 1.7 % (0-5); Hematocrit 40.5 % (37-47); Hemoglobin 13.8 g/dL (12.0-15.0); Lymphocyte # 1.17 X10^3/ul (0.83-4.51); Lymphocyte % 20.2 % (19-41); Mean Corp Hgb Conc 34.1 g/dL (32-36); Mean Corpuscular Hgb 32.2 pg (27.0-32.0); Mean Corpuscular Volume 94.4 fL (81-99); Mean Platelet Vol. 8.9 fl (6.2-12.0); Monocyte# 0.45 X10^3/uL; Monocyte% 7.8 % (0-10); NRBC Flagged by Analyzer 0.3 % (0-5); Neutrophil # 4.04 X10^3/uL (2.7-7.7); Neutrophil % 69.6 % (47-70); Platelet Count 312 K/mm3 (150-450); RBC Distribution Width CV 11.6 % (11.6-14.6); RBC Distribution Width SD 39.8 fl (35.1-43.9); Red Blood Count 4.29 M/mm3 (4.2-5.4); White Blood Count 5.8 K/mm3 (4.4-11.0)
[2023-04-23 11:44] LABS: Anion Gap 5 (5-15); BUN 13 mg/dL (7-18); BUN/Creat Ratio 16.1 RATIO (10-20); Calcium,Total 9.3 mg/dL (8.5-10.1); Chloride 108 mmol/L (98-107); Creatinine, Serum 0.81 mg/dL (0.55-1.02); EST Glomerular Filtration Rate 79 mL/min (>60); Est Glom Filt Rate - Afr Amer 96 mL/min (>60); Glucose 103 mg/dL (74-106); Magnesium 2.1 mg/dL (1.6-2.6); Potassium 3.8 mmol/L (3.5-5.1); Sodium Level 139 mmol/L (136-145); Troponin-I HS 3 pg/mL (3.0-54.0)
== END | disposition home or self-care (01) ==
LOC: LAB 10:49
PROVIDERS: PCP Family Medicine; Referring Provider Internal Medicine Cardiovascular Disease; Visit Provider Internal Medicine Cardiovascular Disease
DX: R23.2 Flushing (principal); Z95.5 Presence of coronary angioplasty implant and graft
CPT/HCPCS: 36415; 80048; 83735; 83880; 84484; 85025

== ENCOUNTER → 2023-04-26 | Outpatient (CLI) | payer OTHER, SELFPAY ==
--- NOTE | 2023-04-26 12:53 | CT_ITS ---
STUDY: CTA CHEST REASON FOR EXAM: Female, 53 years old. Shortness of breath. Recent foot surgery. RADIATION DOSAGE (If Supplied By Facility): CTDIvol = ( 3.52 ) mGy, DLP = ( 136.61 ) mGycm TECHNIQUE: The examination was performed with the intravenous administration of IV 100mL Isovue-370. Post-processing of the angiographic images was performed, with multiplanar reformation and 3D reconstruction. Individualized dose optimization techniques were used for this CT. COMPARISON: Comparison is made with prior study dated May 10, 2021. FINDINGS: Normal enhancement of the main pulmonary artery and right and left pulmonary arteries. Normal enhancement of the bilateral peripheral pulmonary arteries. There is no demonstrated pulmonary embolism. Normal thoracic aorta and visualized great vessels. There is no demonstrated aortic dissection. There are calcifications of the coronary arteries. Normal mediastinum. Normal hilar regions. Normal visualized trachea and bronchi. The lungs are well expanded. Normal pulmonary parenchyma. Normal pleura. Normal chest wall structures. Normal osseous structures. Prior cholecystectomy. CT/CTA Chest W/WO Contrast IMPRESSION: No acute abnormality is seen. Electronically Signed: Garrett Reed MD at 13:53 EST ,
== END | disposition home or self-care (01) ==
LOC: CT 12:52
PROVIDERS: PCP Family Medicine; Referring Provider Internal Medicine Cardiovascular Disease; Visit Provider Internal Medicine Cardiovascular Disease
DX: R06.02 Shortness of breath (principal)
CPT/HCPCS: 71275; Q9967

== ENCOUNTER → 2023-06-15 | Outpatient (CLI) | payer OTHER, SELFPAY ==
--- OUTSIDE RECORDS SUMMARY | 2023-06-15 21:03 | XMS RPT_ITS | CCD ---
Author Name Unknown Address [address] [place] [address] Organization [facility] Care Team Providers Care Facility Maintenance Technician Name Role Phone [place] MINE SHIFTER, Jazzy S Unavailable Malys DO, Kenzie Unavailable [...] Unavailable Malys DO, Kenzie Primary Care Provider [phone] Lucrecia Balbuena MD Unavailable MALYS, KENZIE Primary Care Unavailable MALYS, KENZIE Referring Unavailable KAYLIE LEIVA Attending Unavailable MALYS, KENZIE Primary Care Unavailable MALYS, KENZIE Referring Unavailable KAYLIE LEIVA Attending Unavailable SELF, SELF Referring Unavailable MALYS, KENZIE Primary Care Unavailable ZAYNAB LEAL Attending Unavailable Allergies Allergy Classification Reported Allergen(s) Allergy Type Date of Onset Reaction(s) Facility (1 source) sulfamethoxazole / trimethoprim drug allergy 04-29-19 [facility] (1 source) traMADol drug allergy 04-29-[address] [facility] (2 sources) Colchicine Drug Allergy 01-09-20 19 Di[facility] (3 sources) Hmg-Coa Reductase Inhibitors (Statins) Propensity to adverse reactions to drug 04-17-19 19 Abdominal Discomfort [facility] (3 sources) Omeprazole Drug Allergy 05-04-19 19 [facility] ([facility] sources) Sulfonamides (Antibiotic) Propensity to adverse reactions to drug 04-17-19 19 Nausea and Vomiting, Tachycardia [facility] (3 sources) traMADol Drug Allergy 04-17-19 19 Nausea and Vomiting, Dizzy/Vertigo [facility] (1 source) Colchicine Drug Allergy 01-09-20 19 Diarrhea [facility] Medications Current Medications Medication Drug Class(es) Dates [...] Take one tab Twice daily AMOXICILLIN-POT CLAVULANATE [id number] Tim REESE azaTHIOprine 50 mg oral tablet [...] Coronary atherosclerosis; Translations: [Atherosclerotic heart disease of [place] coronary artery with unstable angina pectoris] Onset: 04-17-2018 04-17-2018 Chronic Essential hypertension (3 sources) Essential hypertension; Translations: [Essential (primary) hypertension] Onset: 04-17-2018 04-17-2018 Chronic Other aftercare (2 sources) Patient encounter status; Translations: [Encounter for therapeutic drug level monitoring] Episodic Other aftercare (2 sources) Drug therapy finding; Translations: [Other terminal makeup operator (current) drug therapy] Episodic Other inflammatory condition [...] current use of immunosuppressive drug; Translations: [Other long-term (current) drug therapy] Onset: 06-12-2018 06-12-2018 Episodic Other aftercare (2 sources) Other long-term (current) drug therapy; Translations: [Other terminal makeup operator (current) drug therapy] Onset: 07-08-2022 Episodic Other [...] 23.88 kg/m2 Zaynab Leal MD Work Phone: [facility] 01-10-2023 10:48-0400 Body weight 57.34 kg Zaynab Leal MD Work Phone: [facility] 01-10-2023 10:48-0400 Diastolic blood pressure 68 mm[Hg] Zaynab Leal MD Work Phone: [facility] 01-10-2023 10:48-0400 Heart rate 91 /min Zaynab Leal MD Work Phone: [facility] 01-10-2023 10:48-0400 SaO2% (BldA) [Mass fraction] 99 % Zaynab Leal MD Work Phone: [facility] 01-10-2023 10:48-0400 Systolic blood pressure 112 mm[Hg] Zaynab Leal MD Work Phone: [facility] 07-08-2022 15:20-0400 Body height 154.9 cm Kaylie Leiva MD Work Phone: [facility] 07-08-2022 15:20-0400 Body mass index (BMI) [Ratio] 26.04 kg/m2 aKylie Leiva MD Work Phone: [facility] 07-08-2022 15:20-0400 Body weight 62.51 kg Kaylie Leiva MD Work Phone: [facility] 07-08-2022 15:20-0400 Diastolic blood pressure 70 mm[Hg] Kaylie Leiva MD Work Phone: [facility] 07-08-2022 15:20-0400 Heart rate 81 /min Kaylie Leiva MD Work Phone: [facility] 07-08-2022 15:20-0400 Respiratory rate 16 /min Kaylie Leiva MD Work Phone: [facility] 07-08-2022 15:20-0400 SaO2% (BldA) [Mass fraction] 96 % Kaylie Leiva MD Work Phone: [facility] 07-08-2022 15:20-0400 Systolic blood pressure 110 mm[Hg] Kaylie Leiva MD Work Phone: [facility] 09-29-2021 08:42-0400 Body height 154.9 cm Kaylie Leiva MD Work Phone: [facility] 09-29-2021 08:42-0400 Body mass index (BMI) [Ratio] 25.36 kg/m2 Kaylie Leiva MD Work Phone: [facility] 09-29-2021 08:42-0400 Body weight 60.87 kg Kaylie Leiva MD Work Phone: [facility] 09-29-2021 08:42-0400 Diastolic blood pressure 72 mm[Hg] Kaylie Leiva MD Work Phone: [facility] 09-29-2021 08:42-0400 Heart rate 61 /min Kaylie Leiva MD Work Phone: [facility] 09-29-2021 08:42-0400 Respiratory rate 14 /min Kaylie Leiva MD Work Phone: [facility] 09-29-2021 08:42-0400 SaO2% (BldA) [Mass fraction] 97 % Kaylie Leiva MD Work Phone: [facility] 09-29-2021 08:42-0400 Systolic blood pressure 118 mm[Hg] Kaylie Leiva MD Work Phone: [facility] 04-29-2016 08:09-0500 BMI (Body Mass Index) 26.75 kg/m2 Jazzy Diaz NP [facility] 04-29-2016 08:09-0500 Body Temperature 98.1 [degF] Jazyz Diaz NP [facility] 04-29-2016 08:09-0500 BP Diastolic 72 mm[Hg] Jaz[facility] 04-29-2016 08:09-0500 BP Systolic 126 mm[Hg] Jazzy Diaz MINE SHIFTER [facility] 04-29-2016 08:09-0500 BSA (Body Surface Area) 1.63 m2 Jazzy Diaz NP [facility] 04-29-2016 08:09-0500 Height 154.94 cm Jazzy Diaz NP [facility] 04-29-2016 08:09-0500 Pulse (Heart Rate) 71 /min Jazzy Diaz NP [facility] 04-29-2016 08:09-0500 Respiratory Rate 16 /min Jazzy Diaz NP [facility] 04-29-2016 08:09-0500 Weight 64.23 kg Jazzy Diaz NP [facility] Encounters Encounter Date Encounter Type Care Provider Facility Start: 01-10-2023 ambulatory SELF SELF Facility:[facility] Start: 01-10-2023 End: 01-10-2023 Office outpatient visit 25 minutes Zaynab Leal MD Work Phone: [facility] [place] Procedures Date Procedure Procedure Detail Performing Clinician Start: 04-17-2018 Lipid 1996 panel - S rober or Plasma Kaylie Leiva MD Work Phone: Plan of Treatment Date Care Activity Detail Author Start: 04-17-2023 Fasting lipid profile LIPID SCREENIN G [facility] Start: 04-17-2023 Lipid panel LIPID SCREENING [facility] Start: 12-10-2022 Influenza vaccination INFLUENZA VACC INE (#1) [facility] Start: 07-08-2022 End: 07-09-2023 DSDNA ANTIBODY [facility] Immunizations Immunization Date Immunization Notes Care Provider Fa cility 01-06-2018 Influenza Vaccine Preservative Free Kaylie Leiva MD Work Phone: [facility] 01-06-2018 influenza virus vaccine, unspecified formulation Kaylie Leiva MD Work Phone: [facility] 01-05-2017 Influenza Vaccine Preservative Free Kaylie Leiva MD Work Phone: [facility] 02-08-2013 Influenza Vaccine Preservative Free Kaylie Leiva MD Work Phone: [facility] 01-14-2009 Influenza Vaccine Nasal Sabi randee Leal MD Work Phone: [facility] 01-14-2009 influenza virus vaccine, live, attenuated, for intranasal use Kaylie Leiva MD Work Phone: [facility] Payers Date Payer Category Payer Private Health Insurance AERANDEE ARGUETA [id number] 2022-Present [address] [place] [id number] 2022 Private Health Insurance [id number] 2018 Unknown [employer] [facility] [employer] [id number] 2018-Present [address] [address] [place] [address] [id number] 1970 Unknown [id number] 1970 Unknown [id number] 1970 Unknown [id number] Social History Date Type Detail Facility Start: 04-18-2018 End: 07-08-2022 Tobacco smoking status NHIS Never smoked tobacco [facility] Start: 04-18-2018 End: 07-08-2022 Tobacco use and exposure Smokeless tobacco non-user [facility] Start: 09-29-2021 End: 01-10-2023 Alcohol intake Current drinker of alcohol (finding) [facility] Start: 09-29-2021 End: 01-10-2023 Alcohol intake [facility] Start: 1970 Sex Assigned At Not on file [facility] Start: 01-10-2023 Tobacco use panel [facility] Start: 04-17-2018 Gender identity Identifies as female gender (finding) [facility] History of Present illness Narrative 01-10-2023 Zaynab Leal MD - 01/10/2023 11:00 AM Reid Mckeon LPN - 01/10/2023 11:00 AM VALERIETAyah Allen MD - 01/10/2023 11:00 AM EDT Note Date & Type Note Facility 01-10-2023 History of Present illness Narrative [facility] Rheumatology Clinic Return Visit Chief [...] in clinical remission per GI (Dr. Sands ([place])). 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 Zaynab Leal MD Rheumatology [...] monitor on current treatment. Ayah Allen MD Rug Renovatorwarper creeler Department of Internal Medicine, Division of Rheumatology [place], [place] documented in this encounter [facility] History of Present illness Narrative 07-08-2022 Maisha Orozco RN - 07/08/2022 3:40 PM EDJustin Leiva MD - 07/08/2022 3:40 PM EDT Note Date & Type Note Facility 07-08-2022 History of Present illness Narrative Patient verified name and date of Encounter date: 07/08/2022 Service location: [facility] Chief Complaint: Chief Complaint Patient presents with Follow-up Patient permits daughter to accompany her to this visit and discuss her medical conditions. 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 Has been off of azathioprine (previously on this per her GI provider for ulcerative colitis) since 07/2021. Sees local sample stitcher annually. Tolerating hydroxychloroquine without reported side effects; aware of need for annual eye exam/retinal screening and states cleared for continuation by her timber hand/condenser operator. Denies new concerns at this time. Note: [...] 50 or greater -continue follow-up with local sample stitcher -02/2021 hep b immune; 09/2021 hiv and [...] Leiva MD Instructor Division of Rheumatology [facility] documented in this encounter [facility] Instructions 07-08-2022 Patient Instructions Note Date & Type Note Facility 07-08-2022 Instructions Kaylie Leiva MD - 07/08/2022 3:40 PM EDT Return to clinic in 6 months. (Please note: Dr. Leiva will no longer be at [facility] in the upcoming months) If Dr. Leiva is unavailable in the anticipated time frame of follow-up indicated above, please call [facility] Rheumatology Clinic ( ) to schedule an appointment with another available Contact Acid Plant Operator at this location. documented in this encounter [facility] Instructions 09-29-2021 Patient Instructions Note Date & [...] the new rheumatology providers yet; please call [facility] Rheumatology Clinic ( ) at the end of 09/2021 to schedule your next appointment in 02/2022 with the new provider. After that time, please direct medication refill requests to your new provider. documented in this encounter [facility] History of Present illness Narrative 09-29-2021 Kaylie [...] Dr. Friend ([place]) in 07/2021. Sees local sample stitcher annually. Denies new concerns at this time. [...] 50 or greater -continue follow-up with local sample stitcher -obtain cbc, bun/cr, lfts, c3/c4, ds dna [...] status. The above was discussed with attending informatics developer Patsy Bashir DO. Diagnoses/recommendations may be modified by the attending physician on attestation. Kaylie Leiva MD Rheumatology Fellow [facility] I, Ptasy Bashir saw, examined and discussed the patient [...] Division of Immunology/Rheumatology documented in this encounter [facility] Evaluation note Note Date & Type Note Facility documented in this encounter [facility] Evaluation note Note Date & Type Note Facility documented in this encounter [facility] Evaluation note Note Date & Type Note Facility documented in this encounter [facility] Reason for referral (narrative) Consultation (Routine) - Patient to Arrange Note Date & Type Note Facility Referral ID Status Reason Start Date Expiration Date V isits Requested Visits Authorized [id number] Patient to Arrange 09/29/2021 10/24/2022 1 1 [facility] Summary Purpose Family History No Family History [...] DATE CREATED AUTHOR AUTHOR'S ORGANIZ ATION 01/15/2023 [facility] Reason for Visit (unrecogniz ed section and content) Reason Comments Follow-up Reason Comments New Patient Care Teams (unrecognized sec tion and content) Facility Maintenance Technician Relationship Specialty Start Date End Date Kenzie Torrez DO [address] [place] [address] PCP - General Family Medicine 04/27/18 Kenzie Torrez DO [address] [place] [address] Family Medicine 04/18/18 Bry Pelaez MD [address] [facility] [phone] Cardiovascular Disease 04/18/18 Lucrecia Balbuena MD [address] [place] [phone] Urologist Urology 02/25/20 Kaylie Leiva MD [address] [place] [address] Contact Acid Plant Operator Rheumatology 07/08/22 Facility Maintenance Technician Relationship Specialty Start Date End Date Kenzie Torrez DO [address] [place] [phone] PCP - General Family Medicine 04/27/18 Kenzie Torrez DO [address] [place] [phone] Family Medicine 04/18/18 Bry Pelaez MD [address] [place] [phone] Cardiovascular Disease 04/18/18 Lucrecia Balbuena MD [address] [facility] [address] [place] [address] Urologist Urology 02/25/20 FOR RECORDS [...] BE BASED ON THE PRIMARY CLINICAL RECORDS. [employer] provides no warranty or guarantee of the accuracy or completeness of information in this document.
[2023-06-22 11:09] LABS: HPV APTIMA, High Risk Negative (Negative)
== END | disposition home or self-care (01) ==
PROVIDERS: PCP Family Medicine; Visit Provider Registered Nurse
DX: Z12.4 Encounter for screening for malignant neoplasm of cervix (principal)
CPT/HCPCS: 87624; 88175; G0145

== ENCOUNTER → 2024-02-01 | Outpatient (CLI) | payer OTHER, SELFPAY ==
--- NOTE | 2024-02-01 07:09 | BI_ITS ---
MAMMOGRAPHY - BILATERAL SCREENING REASON FOR EXAM: Female, 54 years old. Routine annual screening examination. PERTINENT HISTORY: Mother with breast cancer. Prior sonogram demonstrated a right breast cyst. TECHNIQUE: Digital bilateral breast yue (3D mammographic acquisition) in the CC and MLO projections. 2-D mediolateral oblique (MLO) and craniocaudad (CC) views of both breasts were obtained. CAD: Full Field Digital Mammography with Computer Added Detection was performed. COMPARISON: Comparison is made with prior study dated January 21, 2023 and January 20, 2022. FINDINGS: Breast Composition: The breasts are extremely dense, which lowers the sensitivity of mammography. There is a 2.5 cm x 3 cm well-defined nodule in the upper lateral aspect of the right breast. Adjacent to this, there is a similar well-defined nodule measuring 1.7 cm x 1.6 cm. These have increased in size as compared to prior study. No other significant abnormalities are identified. BI/SCRN MAMM (CAD)W/YUE BILAT IMPRESSION: There are 2 adjacent nodules in the right breast as described. These have increased in size as compared to prior study. Repeat sonogram is recommended. ASSESSMENT CATEGORY: BIRADS Category 0: Incomplete. Need additional imaging evaluation. A letter regarding these results will be sent to the patient by the facility within 30 days. Approximately 10% of breast cancers are not detected by mammography. A normal mammogram should not delay biopsy of a clinically suspicious abnormality. [id number] Electronically Signed: Garrett Reed MD at 10:21 EDT ,
--- OUTSIDE RECORDS SUMMARY | 2024-02-01 07:12 | XMS RPT_ITS | CCD ---
Author Organization [facility] Care Team Providers Care Regional Coordinator Name Role Phone Heidrick MEDIA AID, Jazzy S Unavailable Malys DO, Kenzie Unavailable Latanya LAFLEUR, Woodlake S Unavailable Malys DO, Kenzie Primary Care Provider Sree LAFLEUR, Lucrecia Unavailable Kayile Leiva MD Unavailable Malys DO, Kenzie Unavailable Latanya LAFLEUR, Woodlake S Unavailable Malys DO, Kenzie Primary Care Provider Sree LAFLEUR, Lucrecia Unavailable Kaylie Leiva MD Unavailable Malys DO, [...] / trimethoprim drug allergy 04-29-19 [facility] (1 source) traMADol drug allergy 04-29-19 [facility] (2 sources) Colchicine Drug Allergy 01-09-20 19 [facility] Hmg-Coa Reductase Inhibitors (Statins) Propensity to adverse reactions to drug 04-17-19 19 Abdominal Discomfort [facility] ([facility] Omeprazole Drug Allergy 05-04-19 19 [facility] (3 sources) Sulfonamides (Antibiotic) Propensity to adverse reactions to drug 04-17-19 19 Nausea and Vomiting, Tachycardia [facility] (3 sources) traMADol Drug Allergy 04-17-19 19 Nausea and Vomiting, Dizzy/Vertigo [facility] (1 source) Colchicine Drug Allergy 01-09-20 19 Diarrhea [facility] Medications Current Medications Medication Drug Class(es) [...] exam/retinal monitoring. 135 tablet 3 07/08/2022 Active Start: 04-19-2022 End: 07-08-2022 Hydroxychloroquine 200 MG ta blet Indications: Subacute cutaneous lupus erythematosus ALTERNATE BY TAKING 2 TABS BY MOUTH AND 1 TAB EVERY OTHER DAY. REQUIRES ANNUAL EYE EXAM 135 tablet 0 04/19/2022 07/08/2022 Discontinued Start: 02-24-2021 hydroxychloroq uine 200 MG tablet Indications: Subacute cutaneous lupus erythematosus Alternate 400 mg and 200 mg every other day. Requires annual eye exam/retinal monitoring. 45 tablet 11 02/24/2021 Active lisinopril 5 mg oral tablet (3 sources) Angiotensin Converting Enzyme Inhibitor take 1 tablet by mouth twice daily lisinopril 5 MG tablet Take 1 tablet by mouth 2 times daily. 0 Active 24 hr metoprolol succinate 25 mg extended release oral tablet (3 sources) beta-Adrenergic Edison take 1 tablet by mouth once daily in the morning metoprolol succinate 25 MG tablet XL Take 1 tablet by mouth daily every morning. 0 Active rosuvastatin calcium 5 mg oral tablet (3 sources) HMG-CoA Reductase Inhibitor Start: take 1 tablet by mouth once rosuvastatin 5 MG Tab per tablet Indications: Coronary artery disease involving [place] coronary artery of [place] heart with unstable angina pectoris Take 1 tablet by mouth every Tuesday, Tuesday and Tuesday. 30 tablet 1 04/19/2018 Active Completed/Discontinued Medications Medication Drug Class(es) Dates Sig (Normalized) Sig (Original) amoxicillin 875 mg / clavulanate 125 mg oral tablet (1 source) Penicillin-class Antibacterial Start: 04-29-2016 End: 05-06-2016 AMOXICILLIN-POT CLAVULANATE 875-125 MG TABS Take one tab Twice daily AMOXICILLIN-POT CLAVULANATE [id number] Tim REESE azaTHIOprine 50 mg oral tablet (4 sources) Purine Antimetabolite Start: 09-23-2020 End: 01-10-2023 take 2 tablets by mouth at bedtime azaTHIOprine (Imuran) 50 MG tablet Take 2 tablets by mouth at bedtime. 60 tablet 3 09/23/2020 01/10/2023 Discontinued Start: 04-29-2016 IMURAN 50 MG T ABS 150mg daily AZATHIOPRINE [id number] Mariel Varela LPN Problems Active Problems Problem Classification Problem Date Documented Da te Episodic/Chronic Coronary atherosclerosis and other heart disease (9 sources) Coronary atherosclerosis; Translations: [Atherosclerotic heart disease of [place] coronary artery with unstable angina pectoris] Onset: 04-17-2018 04-17-2018 Chronic Essential hypertension (3 sources) Essential hypertension; Translations: [Essential (primary) hypertension] Onset: 04-17-2018 04-17-2018 Chronic Other aftercare (2 sources) Patient encounter status; Translations: [Encounter for therapeutic drug level monitoring] Episodic Other aftercare (2 sources) Drug therapy finding; Translations: [Other mcfp (current) drug therapy] Episodic Other inflammatory condition [...] current use of immunosuppressive drug; Translations: [Other buckle stringer (current) drug therapy] Onset: 06-12-2018 06-12-2018 Episodic Other aftercare (2 sources) Other mcfp (current) drug therapy; Translations: [Other mcfp (current) drug therapy] Onset: 07-08-2022 Episodic Other [...] Results Test Name Value Interpretation Reference Range Facility MAGED Yip 07-08-2022 Creatinine [Mass/Vol] 0.79 mg/dL 0.50 - 1.20 mg/dL [facility] GFR/1.73 sq M.predicted CKD-EPI (S/P/Bld) [Vol rate/Area] 90 - PINF [facility] Comment on above: Reported eGFR is bas ed on the CKD-EPI 2021 equation using creatinine, age, and sex. Urea nitrogen [Mass/Vol] 12 mg/dL 7 - 25 mg/dL [facility] Urea nitrogen/Creatinine [Mass ratio] 15 mg/mg [facility] Creatinine [Mass/Vol] 0.79 mg/dL Normal 0.50-1.20 [facility] Comment on above: Performed By: #### C 3, BCR, HFP, C4 #### [facility] (DEFAULT) [address] [address] GFR/1.73 sq M.predicted among non-blacks MDRD (S/P/Bld) [Vol rate/Area] 90 mL/min/{1.73_m2} Normal >=60 [facility] Comment on above: Result Comment: Repo rted eGFR is based on the CKD-EPI 1 equation using creatinine, age, and sex. Performed By: #### C 3, BCR, HFP, C4 #### [facility] (DEFAULT) [address] [address] Urea nitrogen [Mass/Vol] 12 mg/dL Normal 7-25 [facility] Comment on above: Performed By: #### C 3, BCR, HFP, C4 #### [facility] (DEFAULT) [address] [place] [address] Urea nitrogen/Creatinine [Mass ratio] 15 mg/mg Normal [facility] Comment on above: Performed By: #### C 3, BCR, HFP, C4 #### [facility] (DEFAULT) [address] [place] [address] C3 COMPLEMENTon 07-08-2022 Complement C3 [Mass/Vol] 109 mg/dL 87 - 200 mg/dL [facility] C3 109 mg/dL Normal 87-200 [facility] Comment on above: Performed By: #### C 3, BCR, HFP, C4 #### [facility] (DEFAULT) [address] [place] [address] C4 COMPLEMENTon 07-08-2022 Complement C4 [Mass/Vol] 22 mg/dL 18 - 52 mg/dL [facility] C4 22 mg/dL Normal 18-52 [facility] Comment on above: Performed By: #### C 3, BCR, HFP, C4 #### [facility] (DEFAULT) [address] [place] [address] CBC AND ELECTRONIC DIFFon Abs Baso Auto < Normal 0.00-0.15 [facility] Comment on above: Performed By: #### L [id number] #### [facility] (DEFAULT) [address] [place] [address] Basophils/100 WBC (Bld) 0.4 % Normal [facility] Comment on above: Performed By: #### L [id number] #### [facility] (DEFAULT) [address] [place] [address] DIFF STATUS Electronic Differential Normal [facility] Comment on above: Performed By: #### L [id number] #### [facility] (DEFAULT) [address] [place] [address] Eosinophils (Bld) [#/Vol] 0.11 10*3/uL Normal 0.00-0.42 [facility] Comment on above: Performed By: #### L [id number] #### [facility] (DEFAULT) [address] [place] [address] Eosinophils/100 WBC (Bld) 2.0 % Normal [facility] Comment on above: Performed By: #### L [id number] #### [facility] (DEFAULT) [address] [place] [address] Hematocrit (Bld) [Volume fraction] 39.1 % Normal 34.9-44.3 [facility] Comment on above: Performed By: #### L [id number] #### [facility] (DEFAULT) [address] [address] Hemoglobin (Bld) [Mass/Vol] 13.2 g/dL Normal 11.4-15.2 [facility] Comment on above: Performed By: #### L AB980 #### [facility] (DEFAULT) [address] [address] Immature Grans % 0.2 % Normal [facility] Comment on above: Performed By: #### L [id number] #### [facility] (DEFAULT) [address] [address] Immature Grans Absolute < Normal <=0.08 [facility] Comment on above: Performed By: #### L [id number] #### [facility] (DEFAULT) [address] [address] Lymphocytes (Bld) [#/Vol] 1.28 10*3/uL Normal 1.16-3.51 [facility] Comment on above: Performed By: #### L [id number] #### [facility] (DEFAULT) [address] [address] Lymphocytes/100 WBC (Bld) 23.1 % Normal [facility] Comment on above: Performed By: #### L [id number] #### [facility] (DEFAULT) [address] [address] MCV (RBC) [Entitic vol] 95.6 fL Normal 79.6-97.7 [facility] Comment on above: Performed By: #### L [id number] #### [facility] (DEFAULT) [address] [address] Mean Cell Hgb 32.3 pg Normal 25.9-33.9 [facility] Comment on above: Performed By: #### L [id number] #### [facility] (DEFAULT) [address] [address] Mean Cell Hgb Conc 33.8 g/dL Normal 31.4-35.9 [facility] Comment on above: Performed By: #### L AB980 #### [facility] (DEFAULT) [address] [address] Monocytes (Bld) [#/Vol] 0.57 10*3/uL Normal 0.22-0.87 [facility] Comment on above: Performed By: #### L [id number] #### [facility] (DEFAULT) [address] [place] [address] Monocytes/100 WBC (Bld) 10.3 % Normal [facility] Comment on above: Performed By: #### L [id number] #### [facility] (DEFAULT) [address] [address] Nucleated RBC 0.0 /100 WBC Normal <=0.[address] [facility] Comment on above: Performed By: #### L [id number] #### [facility] (DEFAULT) [address] [address] Platelet mean volume (Bld) [Entitic vol] 9.5 fL Normal 8.5-12.2 [facility] Comment on above: Performed By: #### L [id number] #### [facility] (DEFAULT) [address] [address] Platelets (Bld) [#/Vol] 252 10*3/uL Normal 150-393 [facility] Comment on above: Performed By: #### L [id number] #### [facility] (DEFAULT) [address] [address] RBC (Bld) [#/Vol] 4.09 10*6/uL Normal 3.91-5.04 [facility] Comment on above: Performed By: #### L [id number] #### [facility] (DEFAULT) [address] [address] RBC Distribution 11.4 % Normal 10.8-14.9 [facility] Comment on above: Performed By: #### L [id number] #### [facility] (DEFAULT) [address] [place] [address] Segs + Bands Auto 64.0 % Normal [facility] Comment on above: Performed By: #### L [id number] #### [facility] (DEFAULT) [address] [place] [address] Segs + Bands,Absolute Auto 3.54 K/uL Normal 1.64-7.28 [facility] Comment on above: Performed By: #### L [id number] #### [facility] (DEFAULT) [address] [place] [address] WBC (Bld) [#/Vol] 5.53 10*3/uL Normal 3.99-11.19 [facility] Comment on above: Performed By: #### L [id number] #### [facility] (DEFAULT) [address] [place] [address] DSDNA ANTIBODYon 07-08-2022 dsDNA Ab, Quant 6 IU/mL High <=[address] [facility] Comment on above: Performed By: #### D SDNAB #### [facility] (DEFAULT) [address] [place] [address] dsDNA Antibody Indeterminate Abnormal Negative [facility] Comment on above: Performed By: #### D SDNAB #### [facility] (DEFAULT) [address] [place] [address] HEPATIC FUNCTION PANELon Albumin [Mass/Vol] 4.4 g/dL 3.5 - 5.0 g/dL [facility] ALP [Catalytic activity/Vol] 66 U/L 32 - 126 U/L [facility] ALT [Catalytic activity/Vol] 21 U/L 9 - 48 U/L [facility] AST [Catalytic activity/Vol] 23 U/L 10 - 39 U/L [facility] Bilirubin [Mass/Vol] 0.5 mg/dL NINF - 1.5 mg/dL [facility] Bilirubin.direct [Mass/Vol] 0.1 mg/dL NINF - 0.3 mg/dL [facility] Protein [Mass/Vol] 6.4 g/dL 6.4 - 8.3 g/dL [facility] Albumin [Mass/Vol] 4.4 g/dL Normal 3.5-5.0 [facility] Comment on above: Performed By: #### C 3, BCR, HFP, C4 #### [facility] (DEFAULT) [address] [place] [address] ALP [Catalytic activity/Vol] 66 U/L Normal 32-126 [facility] Comment on above: Performed By: #### C 3, BCR, HFP, C4 #### [facility] (DEFAULT) [address] [place] [address] ALT [Catalytic activity/Vol] 21 U/L Normal 9-48 [facility] Comment on above: Performed By: #### C 3, BCR, HFP, C4 #### [facility] (DEFAULT) [address] [place] [address] AST [Catalytic activity/Vol] 23 U/L Normal 10-39 [facility] Comment on above: Performed By: #### C 3, BCR, HFP, C4 #### [facility] (DEFAULT) [address] [place] [address] Bilirubin [Mass/Vol] 0.5 mg/dL Normal <1.5 [facility] Comment on above: Performed By: #### C 3, BCR, HFP, C4 #### [facility] (DEFAULT) [address] [place] [address] Bilirubin.indirect [Mass/Vol] 0.1 mg/dL Normal <0.3 [facility] Comment on above: Performed By: #### C 3, BCR, HFP, C4 #### [facility] (DEFAULT) [address] [place] [address] Protein [Mass/Vol] 6.4 g/dL Normal 6.4-8.3 [facility] Comment on above: Performed By: #### C 3, BCR, HFP, C4 #### [facility] (DEFAULT) [address] [place] [address] Performed By: #### P SD, PSE, SIMFXB #### [facility] (DEFAULT) [address] [place] [address] IMMUNOFIXATION SERUMon 07-08 REVIEWED BY: Cookie Lee MD Normal [facility] Comment on above: Performed By: #### P SD, PSE, SIMFXB #### [facility] (DEFAULT) [address] [place] [address] Serum Immunofixation No monoclonal protein present. Normal [facility] Comment on above: Performed By: #### P SD, PSE, SIMFXB #### [facility] (DEFAULT) [address] [place] [address] No Panel Informationon 07-08 Interpretation and review of laboratory results Normal [facility] PROTEIN ELECTROPHORESISon Albumin [Mass/Vol] 4.3 g/dL Normal 3.5-5.0 [facility] Comment on above: Performed By: #### P SD, PSE, SIMFXB #### [facility] (DEFAULT) [address] [place] [address] Alpha 1 0.2 g/dL Normal 0.2-0.4 [facility] Comment on above: Performed By: #### P SD, PSE, SIMFXB #### [facility] (DEFAULT) [address] [place] [address] Alpha 2 0.5 g/dL Normal 0.5-1.0 [facility] Comment on above: Performed By: #### P SD, PSE, SIMFXB #### [facility] (DEFAULT) [address] [place] [address] Beta 0.6 g/dL Normal 0.5-1.1 [facility] Comment on above: Performed By: #### P SD, PSE, SIMFXB #### [facility] (DEFAULT) [address] [address] Gamma 0.8 g/dL Normal 0.6-1.5 [facility] Comment on above: Performed By: #### P SD, PSE, SIMFXB #### [facility] (DEFAULT) [address] [address] Interpretation By: Cookie Lee MD Normal [facility] Comment on above: Performed By: #### P SD, PSE, SIMFXB #### [facility] (DEFAULT) [address] [address] Spe Interpretation Normal serum protein electrophoresis pattern. Normal [facility] Comment on above: Performed By: #### P SD, PSE, SIMFXB #### [facility] (DEFAULT) [address] [address] URINALYSIS REFLEX TO CULTURE PERFORMABLEon 07-08-2022 Appearance (U) Clear Normal Clear [facility] Comment on above: Result Comment: Resu lts may be inaccurate due to color interference. Clinical correlation recommended. Performed By: #### U PCR #### [facility] (DEFAULT) [address] [address] Bacteria ABSENT Normal ABSENT [facility] Comment on above: Performed By: #### U PCR #### [facility] (DEFAULT) [address] [address] Blood Urine Negative Normal Negative [facility] Comment on above: Result Comment: Resu lts may be inaccurate due to color interference. Clinical correlation recommended. Performed By: #### U PCR #### [facility] (DEFAULT) [address] [address] Color (U) Clark Abnormal Yellow [facility] Comment on above: Result Comment: Resu lts may be inaccurate due to color interference. Clinical correlation recommended. Performed By: #### U PCR #### [facility] (DEFAULT) [address] [place] [address] Glucose Ql (U) Negative Normal Negative [facility] Comment on above: Result Comment: Resu lts may be inaccurate due to color interference. Clinical correlation recommended. Performed By: #### U PCR #### [facility] (DEFAULT) [address] [place] [address] Ketones Ql (U) Negative Normal Negative [facility] Comment on above: Result Comment: Resu lts may be inaccurate due to color interference. Clinical correlation recommended. Performed By: #### U PCR #### [facility] (DEFAULT) [address] [place] [address] Leukocyte esterase Test strip Ql (U) Negative Normal Negative [facility] Comment on above: Result Comment: Resu lts may be inaccurate due to color interference. Clinical correlation recommended. Performed By: #### U PCR #### [facility] (DEFAULT) [address] [place] [address] Nitrites Urine Negative Normal Negative [facility] Comment on above: Result Comment: Resu lts may be inaccurate due to color interference. Clinical correlation recommended. Performed By: #### U PCR #### [facility] (DEFAULT) [address] [place] [address] pH (U) 7.0 [pH] Normal 5.0-7.0 [facility] Comment on above: Result Comment: Resu lts may be inaccurate due to color interference. Clinical correlation recommended. Performed By: #### U PCR #### [facility] (DEFAULT) [address] [place] [address] Protein Urine Negative Normal Negative [facility] Comment on above: Result Comment: Resu lts may be inaccurate due to color interference. Clinical correlation recommended. Performed By: #### U PCR #### [facility] (DEFAULT) [address] [place] [address] RBC Urine 3-5 Abnormal 0-2 [facility] Comment on above: Performed By: #### U PCR #### [facility] (DEFAULT) [address] [place] [address] Specific [place] Urine 1.015 Normal 1.001-1.035 [facility] Comment on above: Result Comment: Resu lts may be inaccurate due to color interference. Clinical correlation recommended. Performed By: #### U PCR #### [facility] (DEFAULT) [address] [place] [address] Squamous/Epithelial Cells 1/hpf = 1+ Normal 1/hpf = 1+, 2-5/hpf = 2+, 0/hpf = 0+, ABSENT [facility] Comment on above: Performed By: #### U PCR #### [facility] (DEFAULT) [address] [address] Urobilinogen Urine 1.0 E.U./dL Normal 0.2 E.U/d L, 1.0 E.U/dL [facility] Comment on above: Result Comment: Resu lts may be inaccurate due to color interference. Clinical correlation recommended. Performed By: #### U PCR #### [facility] (DEFAULT) [address] [place] [address] WBC Urine 0-5 Normal 0-5 [facility] Comment on above: Performed By: #### U PCR #### [facility] (DEFAULT) [address] [address] URINE PROTEIN/CREA RATIO, RA NDOMon 07-08-2022 Creatinine (U) [Mass/Vol] 67.03 mg/dL Normal [facility] Comment on above: Performed By: #### U PCR #### [facility] (DEFAULT) [address] [address] Prot/Creat Ratio 0.090 Normal [facility] Comment on above: Performed By: #### U PCR #### [facility] (DEFAULT) [address] [address] Protein (U) [Mass/Vol] 6 mg/dL Normal [facility] Comment on above: Performed By: #### U PCR #### [facility] (DEFAULT) [address] [place] [address] Creatinine (24H U) [Mass/Vol] 67.03 mg/dL [facility] Protein Unsp time (U) [Mass/Vol] 6 mg/dL [facility] Protein/Creatinine (U) [Mass ratio] 0.090 [facility] Creatinine [Mass/Vol] 0.77 mg/dL 0.50 - 1.20 mg/dL [facility] GFR/1.73 sq M.predicted CKD-EPI (S/P/Bld) [Vol rate/Area] >90 >=60 mL/min/1.73m2 [facility] Comment on above: Reported eGFR is bas ed on the CKD-EPI 2020 equation using creatinine, age, and sex. Urea nitrogen [Mass/Vol] 12 mg/dL 7 - 25 mg/dL [facility] Urea nitrogen/Creatinine [Mass ratio] 16 mg/mg [facility] C3 COMPLEMENTon 09-29-2021 Complement C3 [Mass/Vol] 124 mg/dL 87 - 200 mg/dL [facility] C4 COMPLEMENTon 09-29-2021 Complement C4 [Mass/Vol] 25 mg/dL 18 - 52 mg/dL [facility] HEPATIC FUNCTION PANELon Albumin [Mass/Vol] 4.5 g/dL 3.5 - 5.0 g/dL [facility] ALP [Catalytic activity/Vol] 71 U/L 32 - 126 U/L [facility] ALT [Catalytic activity/Vol] 21 U/L 9 - 48 U/L [facility] AST [Catalytic activity/Vol] 24 U/L 10 - 39 U/L [facility] Bilirubin [Mass/Vol] 0.8 mg/dL <1.5 [facility] Bilirubin.direct [Mass/Vol] 0.2 mg/dL <0.3 [facility] Interpretation and review of laboratory results Normal [facility] Protein [Mass/Vol] 6.7 g/dL 6.4 - 8.3 g/dL [facility] No Panel Informationon 09-29 Interpretation and review of laboratory results Normal [facility] PROGRESSon 05-15-2019 PROGRESS HNO ID: [id number] Author: Pedro Luis Angeles (Od) Ryan MATIAS Service: ? Author Type: METALS ANALYST Type: Progress Notes Filed: 05/15/2019 9:23 AM Note Text: Assessment and Plan H04.123 Chronically dry eyes, bilateral (primary encounter diagnosis) Comment: Recommend dry eye treatment. Start use of Systane Complete and Refresh Volcano-3 drops (either) 1 gt both eyes four times a day to see if improves clarity. Exam otherwise unremarkable. Discussed treatment with topical anti-inflammatory drops and/or Dr. Euceda consult if further treatment needed. Patient will call if needed. I have confirmed and edited as necessary the relevant ophthalmic history, ROS, and the neuro exam findings as obtained by others. I have seen and examined Amalia Richardson. I have discussed the case and the management of this patient's care with the Resident/Fellow, if applicable. I also have reviewed and agree with the assessment and plan as stated above and agree with all of its relevant components. Pedro Luis Davis II, OD Normal [facility] CNCOon 04-20-2019 CNCO Letter Text Normal [facility] PROGRESSon 01-16-2019 PROGRESS HNO ID: [id number] Author: Pedro Luis Angeles (Od) Ryan MATIAS Service: ? Author Type: METALS ANALYST Type: Progress Notes Filed: 01/16/2019 11:41 AM Note Text: Assessment and Plan H40.003 Glaucoma suspect of both eyes (primary encounter diagnosis) Comment: Glaucoma suspect both eyes due to optic nerve cupping and previously noted NFL anomalies. Stable nerve fiber layers in areas scanned today. Monitor yearly. No treatment indicated at this time. Discussed need for continued close observation to minimize chance of future vision loss. Z79.899 Long-term use of Plaquenil Comment: Patient to start using Plaquenil in near future. No ocular contraindications. Discussed need for early detection of ocular complications as they can continue to progress for a period of time even after medication is discontinued. Will obtain 10-2 Visual field at next visit. H52.13 Myopia of both eyes H52.4 Presbyopia Comment: Stable distance vision. Increase multifocal power. I have confirmed and edited as necessary the relevant ophthalmic history, ROS, and the neuro exam findings as obtained by others. I have seen and examined Amalia Richardson. I have discussed the case and the management of this patient's care with the Resident/Fellow, if applicable. I also have reviewed and agree with the assessment and plan as stated above and agree with all of its relevant components. Pedro Luis Davis, II, OD Normal [facility] CNPNon 05-22-2018 [facility] Telephone (ASWSTR) ---- AMALIA RICHARDSON ([id number]) 1970 F Date Time Provider Department 05/22/18 XIOMARA GONZALEZ ASWSTR During your visit today, we recorded the following information about you: Monalisa Arboleda RN, RN 05/22/2018 11:52 AM Signed Patient is due for a follow up colonoscopy for history of chronic ulcerative colitis. Last scope was with Dr. Khan in June 2015 under MAC anesthesia. Report is scanned into [employer]. Patient appears healthy and could be open access, but do you want her to see Estee first to evaluate if there is a need again for MAC? Please advise. Thank you. PEDRO LUIS Hua RN, RN 05/22/2018 12:04 PM Signed John Chadwick ?You 4 minutes ago (11:57 AM) No. ?I think she will be able to be done here without problem (Routing comment) Monalisa Arboleda RN, RN 05/22/2018 12:04 PM Signed Please schedule patient as open access with Dr Chadwick if patient is agreeable. Thank you PEDRO LUIS Hua RN, RN 05/22/2018 1:02 PM Signed Please also mention to patient that she would have moderate sedation here. PEDRO LUIS Hua 05/23/2018 10:52 AM Signed Spoke with patient states that she had a screening with Dr. Khan last year and is up to date on everything Rajiv Arboleda RN, RN 06/05/2018 1:15 PM Signed Jarrod, Is this [facility] can [facility] so HM can be updated appropriately. Thank you Monalisa Arboleda RN Allergies As of Date: 05/22/2018 Noted Allergy Reaction NAPROXEN 03/11/2005 8 - GI Upset SULFA (SULFONAMIDE ANTIBIOTICS) 03/11/2005 11 - Vomiting Comments: also has tachycardia TRAMADOL 09/11/2013 14 - Other: See Comments Comments: Drops bp, dizziness Date Reviewed: 08/26/2015 Reviewed by: Hattie Rae (Investment Advisor) ISRAEL Elias - Fully Assessed Reason for Visit: Outpatient Colonoscopy [482] Prescriptions as of 05/22/2018 Sig: * IMURAN 50 MG TABLET takes 150mg daily * CALCIUM 600 600 MG CALCIUM (1* Twice daily * DAILY MULTIVITAMIN TABLET 2-3 times weekly Problem List As Of Date 05/22/2018 Noted Resolved DIFFUS CYSTIC MASTOPATHY [N60.19] INVALID FOR* ULCERATIVE COLITIS LEFT SIDED [K51.50] INVALID FOR* More... ASCUS favor benign [R87.610] INVALID FOR* Mucous polyp of cervix [N84.1] INVALID FOR* Uterovaginal prolapse, incomplete [N81.2] INVALID FOR* Cystocele, midline [N81.11] INVALID FOR* Myopia [H52.10] INVALID FOR* Presbyopia [H52.4] INVALID FOR* Glaucoma suspect of both eyes [H40.003] INVALID FOR* Encounter Status:Closed by RAJIV BUITRAGO on 05/23/18 [facility] Report: Miscellaneous La b Procedureon 04-27-2017 GE use only - for LinkLogic import when terms are not otherwise specified . Invalid Interpretation Code [facility] Office Visit: UC: Frank arguello 04-29-2016 Documentation of current medications (procedure) Done Invalid Interpretation Code [facility] Tobacco smoking status OKIS Never Invalid Interpretation Code [facility] Tobacco smoking status OKIS Tobacco smoking status OKIS Invalid Interpretation Code [facility] Vital Signs Date Time Vital Sign Value Performing Clinician Facility 01-10-2023 10:48-0400 Body mass index (BMI) [Ratio] 23.88 kg/m2 Zaynab Leal MD Work Phone: [facility] 01-10-2023 10:48-0400 Body weight 57.34 kg Zaynab Leal MD Work Phone: [facility] 01-10-2023 10:48-0400 Diastolic blood pressure 68 mm[Hg] Zaynab Leal MD Work Phone: [facility] 01-10-2023 10:48-0400 Heart rate 91 /min Zaynab Leal MD Work Phone: [facility] 01-10-2023 10:48-0400 SaO2% (BldA) [Mass fraction] 99 % Zaynab Leal MD Work Phone: [facility] 01-10-2023 10:48-0400 Systolic blood pressure 112 mm[Hg] Zaynab Leal MD Work Phone: [facility] 07-08-2022 15:20-0400 Body height 154.9 cm Kaylie Leiva MD Work Phone: [facility] 07-08-2022 15:20-0400 Body mass index (BMI) [Ratio] 26.04 kg/m2 Kaylie Leiva MD Work Phone: [facility] 07-08-2022 15:20-0400 Body weight 62.51 kg Kaylie Leiva MD Work Phone: [facility] 07-08-2022 15:20-0400 Diastolic blood pressure 70 mm[Hg] Kaylie Leiva MD Work Phone: [facility] 07-08-2022 15:20-0400 Heart rate 81 /min Kaylie Leiva MD Work Phone: [facility] 07-08-2022 15:20-0400 Respiratory rate 16 /min Kaylie Leiva MD Work Phone: [facility] 07-08-2022 15:20-0400 SaO2% (BldA) [Mass fraction] 96 % Kaylie Leiva MD Work Phone: [facility] 07-08-2022 15:20-0400 Systolic blood pressure 110 mm[Hg] Kaylie Leiva MD Work Phone: [facility] 09-29-2021 08:42-0400 Body height 154.9 cm Kaylie Leiva MD Work Phone: [facility] 09-29-2021 08:42-0400 Body mass index (BMI) [Ratio] 25.36 kg/m2 Kaylie Leiva MD Work Phone: [facility] 09-29-2021 08:42-0400 Body weight 60.87 kg Kaylie Leiva MD Work Phone: [facility] 09-29-2021 08:42-0400 Diastolic blood pressure 72 mm[Hg] Kaylie Leiva MD Work Phone: [facility] 09-29-2021 08:42-0400 Heart rate 61 /min Kaylie Leiva MD Work Phone: [facility] 09-29-2021 08:42-0400 Respiratory rate 14 /min Kaylie Leiva MD Work Phone: [facility] 09-29-2021 08:42-0400 SaO2% (BldA) [Mass fraction] 97 % Kaylie Leiva MD Work Phone: [facility] 09-29-2021 08:42-0400 Systolic blood pressure 118 mm[Hg] Kaylie Leiva MD Work Phone: [facility] 04-29-2016 08:09-0500 BMI (Body Mass Index) 26.75 kg/m2 Jazzymadelin Gantgogo SANTANA [facility] 04-29-2016 08:09-0500 Body Temperature 98.1 [degF] Jazzy Gants MEDIA A[employer] [facility] 04-29-2016 08:09-0500 BP Diastolic 72 mm[Hg] Jazzy Heidrick MEDIA AID [facility] 04-29-2016 08:09-0500 BP Systolic 126 mm[Hg] Jazzy Heidrick MEDIA AID [facility] 04-29-2016 08:09-0500 BSA (Body Surface Area) 1.63 m2 Jazzy Heidrick NP [facility] 04-29-2016 08:09-0500 Height 154.94 cm Jazzy Emily MEDIA AID [facility] 04-29-2016 08:09-0500 Pulse (Heart Rate) 71 /min Jazzy Heidrick MEDIA AID [facility] 04-29-2016 08:09-0500 Respiratory Rate 16 /min Jazzy Emily MEDIA AID [facility] 04-29-2016 08:09-0500 Weight 64.23 kg Jazzy Heidrick MEDIA AID [facility] Encounters Encounter Date Encounter Type Care Provider Facility Start: 01-10-2023 ambulatory SELF SELF Facility:[facility] Start: 01-10-2023 End: 01-10-2023 Office outpatient visit 25 minutes Zaynab Leal MD Work Phone: [facility] [place] Comment on above: Subacute cutaneous l upus erythematosus (Primary Dx); SS-A antibody positive; Long-term use of hydroxychloroquine Start: 07-08-2022 ambulatory KENZIE MALYS Facility:[facility] Start: 07-08-2022 End: 07-08-2022 Office outpatient visit 25 minutes Kaylie Leiva MD Work Phone: [facility] [place] Comment on above: Subacute cutaneous l upus erythematosus (Primary Dx); SS-A antibody positive; Long-term use of hydroxychloroquine; Therapeutic drug monitoring Start: 09-29-2021 End: 09-29-2021 Office outpatient visit 25 minutes Kaylie Leiva MD Work Phone: [facility] [place] Comment on above: Subacute cutaneous l upus erythematosus (Primary Dx); SS-A antibody positive; Therapeutic drug monitoring Procedures Date Procedure Procedure Detail Performing Clinician Start: 04-17-2018 Lipid 1996 panel - S rober or Plasma Kaylie Leiva MD Work Phone: Plan of Treatment Date Care Activity Detail Author Start: 04-17-2023 Fasting lipid profile LIPID SCREENIN G [facility] Start: 04-17-2023 Lipid panel LIPID SCREENING [facility] Start: 12-10-2022 Influenza vaccination INFLUENZA VACC INE (#1) [facility] Start: 07-08-2022 End: 07-09-2023 DSDNA ANTIBODY [facility] Comment on above: Expected: 07/08/2022 , Expires: 07/09/2023 Start: 07-08-2022 End: 07-09-2023 PROTEIN ELECTROPHORESIS SERUM, WITH REFLEX [facility] Comment on above: Expected: 07/08/2022 , Expires: 07/09/2023 Start: 07-08-2022 End: 07-09-2023 URINALYSIS REFLEX TO CULTURE [facility] Comment on above: Expected: 07/08/2022 , Expires: 07/09/2023 Start: 12-10-[address] [facility] Start: 09-29-2021 End: 09-29-2022 DSDNA ANTIBODY [facility] Work Phone: Comment on above: Expected: 09/29/2021 , Expires: 09/29/2022 Start: 09-29-2021 End: 09-29-2022 URINALYSIS REFLEX TO CULTURE [facility] Comment on above: Expected: 09/29/2021 , Expires: 09/29/2022 Start: 01-09-2020 Zoster vaccine hzv l radames for subcutaneous use ZOSTER (SHINGLES) VACCINE (1 of 2) [facility] Start: 2015 Colonoscopy COLORECTAL CAN CER SCREENING DISCUSSION [facility] Start: 2015 Screening for malign ant neoplasm of colon COLORECTAL CANCER SCREENING DISCUSSION [facility] Start: 2010 Screening for malign ant neoplasm of breast MAMMOGRAM SCREENING DISCUSSION [facility] Start: 2010 Screening mammography MAMMOGRA M SCREENING DISCUSSION [facility] Start: 1991 Screening for malign ant neoplasm of cervix CERVICAL CANCER SCREENING DISCUSSION [facility] Start: 1989 Third diphtheria, te tanus and acellular pertussis (DTaP) vaccination TDAP (ADULT) [facility] Start: 1989 Zoster vaccine hzv l radames for subcutaneous use ZOSTER (SHINGLES) VACCINE (1 of 2) [facility] Start: 01-09-1988 Tetanus vaccination TETANUS [facility] Start: 01-09-1976 PNEUMOCOCCAL VACCINE SERIES (1 - PCV) PNEUMOCOCCAL VACCINE SERIES (1 - PCV) [facility] Start: 1975 COVID-19 VACCINE (#1) COVID-19 VACCI NE (#1) [facility] Start: 1970 COVID-19 VACCINE (#1) COVID-19 VACCI NE (#1) [facility] Start: 1970 Tetanus vaccination TETANUS [facility] Immunizations Immunization Date Immunization Notes Care Provider Fa cili 01-06-2018 Influenza Vaccine Preservative Free Kaylie Leiva MD Work Phone: [facility] 01-06-2018 influenza virus vaccine, unspecified formulation Kaylie Leiva MD Work Phone: [facility] 01-05-2017 Influenza Vaccine Preservative Free Kaylie Leiva MD Work Phone: [facility] 02-08-2013 Influenza Vaccine Preservative Free Kaylie Leiva MD Work Phone: [facility] 01-14-2009 Influenza Vaccine Nasal Sabi randee Leal MD Work Phone: [facility] 01-14-2009 influenza virus vaccine, live, attenuated, for intranasal use Kaylie Leiva MD Work Phone: [facility] Payers Date Payer Category Payer Private Health Insurance [employer] [id number] 2022-Present [address] [place] [address] [id number] 2022 Private Health Insurance [id number] 2018 Unknown [facility] ACCESS [id number] 2018-Present [address] [address] [place] [address] [id number] 1970 Unknown [id number] 1970 Unknown [id number] 1970 Unknown [id number] Social History Date Type Detail Facility Start: 04-18-2018 End: 07-08-2022 Tobacco smoking status NHIS Never smoked tobacco [facility] Start: 04-18-2018 End: 07-08-2022 Tobacco use and exposure Smokeless tobacco non-user [facility] Start: 09-29-2021 End: 01-10-2023 Alcohol intake Current drinker of alcohol (finding) [facility] Start: 09-29-2021 End: 01-10-2023 Alcohol intake [facility] Start: 1970 Sex Assigned At Not on file [facility] Start: 01-10-2023 Tobacco use panel [facility] Start: 04-17-2018 Gender identity Identifies as female gender (finding) [facility] History of Present illness Narrative 01-10-2023 Zaynab Leal MD - 01/10/2023 11:00 AM Reid Mckeon LPN - 01/10/2023 11:00 AM EDTAyah Allen MD - 01/10/2023 11:00 AM EDT Note Date & Type Note Facility 01-10-2023 History of Present illness Narrative [facility] Return Visit Chief Complaint Chief [...] in clinical remission per GI (Dr. Sands ([place] Hx of microscopic hematuria prev followed with [...] MEJIA IFA negative SSA+ dsDNA 6 SSB, FUNERAL GREETER, [place] negative Anti-histone negative Reviewed outside labs [...] Richardson was seen and discussed with attending clay shop supervisor Ayah Allen MD. Zaynab Leal MD Rheumatology [...] monitor on current treatment. Ayah Allen MD Dairy Equipment Mechaniclife scientist Department of Internal Medicine, Division of Rheumatology [place], [place] documented in this encounter [facility] History of Present illness Narrative 07-08-2022 Maisha Orozco RN - 07/08/2022 3:40 PM EDJustin Leiva MD - 07/08/2022 3:40 PM EDT Note Date & Type Note Facility 07-08-2022 History of Present illness Narrative Patient verified name and date of Encounter date: 07/08/2022 Service location: [facility] [place] Chief Complaint: Chief Complaint Patient presents with Follow-up Patient permits daughter to accompany her to this visit and discuss her medical conditions. 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 Has been off of azathioprine (previously on this per her GI provider for ulcerative colitis) since 07/2021. Sees local bus person annually. Tolerating hydroxychloroquine without reported side effects; aware of need for annual eye exam/retinal screening and states cleared for continuation by her commercial finance manager/football scout. Denies new concerns at this time. Note: Follows with GI Dr. Sands ([place]) for ulcerative colitis. Pertinent Symptoms (per [...] GFRAA >=60 02/24/2021 Serum creatinine: 0.77 mg/dL 09/29/21935 Estimated creatinine clearance: 72 mL/min Lab Results [...] 50 or greater -continue follow-up with local bus person -02/2021 hep b immune; 09/2021 hiv and [...] Leiva MD Instructor Division of Rheumatology [facility] documented in this encounter [facility] Instructions 07-08-2022 Patient Instructions Note Date & Type Note Facility 07-08-2022 Instructions Kaylie Leiva MD - 07/08/2022 3:40 PM EDT Return to clinic in 6 months. (Please note: Dr. Leiva will no longer be at [facility] in the upcoming months) If Dr. Leiva is unavailable in the anticipated time frame of follow-up indicated above, please call [facility] ( ) to schedule an appointment with another available [employer] at this location. documented in this encounter [facility] Instructions 09-29-2021 Patient Instructions Note Date [...] the new rheumatology providers yet; please call [facility] ( ) at the end of 09/2021 to schedule your next appointment in 02/2022 with the new provider. After that time, please direct medication refill requests to your new provider. documented in this encounter [facility] History of Present illness Narrative 09-29-2021 Kaylie Leiva MD - 09/29/2021 8:40 AM EDT Note Date & Type Note Facility 09-29-2021 History of Present illness Narrative Encounter date: 09/29/2021 Service location: [facility] [place] Chief Complaint: Chief Complaint Patient presents with Follow-up Subjective/Interval History: Since last rheumatology clinic visit, denies recurrence of diffuse rash associated with prior episodes of SCLE. Experienced sunburn of the face over the past weekend when she forgot to re-apply sunscreen. States she was weaned off of azathioprine for ulcerative colitis by her GI DrShaunna Friend ([place]) in 07/2021. Sees local bus person annually. Denies new concerns at this time. [...] mg daily every morning. Cholecalciferol 50 MCG (1999 UT) capsule Take by mouth. clopidogrel 75 [...] patient, azathioprine tapered off by outside gi (Rokcy Martinez); if patient exhibits signs of systemic lupus activity, plan to resume this medication for this separate indication -counseled on importance of regular sun screen use with spf 50 or greater -continue follow-up with local bus person -obtain cbc, bun/cr, lfts, c3/c4, ds dna [...] status. The above was discussed with attending clay shop supervisor Patsy Bashir DO. Diagnoses/recommendations may be modified by the attending physician on attestation. Kyalie Leiva MD Rheumatology Fellow [facility] I, Patsy Bashir, saw, examined and discussed the patient on [...] Division of Immunology/Rheumatology documented in this encounter [facility] Evaluation note Note Date & Type Note Facility Evaluation note Diagnosis Subacute cutaneous lupus erythematosus- Primary Lupus erythematosus SS-A antibody positive Other and unspecified nonspecific immunological findings Therapeutic drug monitoring Encounter for therapeutic drug monitoring documented in this encounter [facility] Evaluation note Note Date & Type Note Facility Evaluation note Diagnosis Subacute cutaneous lupus erythematosus- Primary Lupus erythematosus SS-A antibody positive Other and unspecified nonspecific immunological findings Long-term use of hydroxychloroquine Therapeutic drug monitoring Encounter for therapeutic drug monitoring documented in this encounter [facility] Evaluation note Note Date & Type Note Facility Evaluation note Diagnosis Subacute cutaneous lupus erythematosus- Primary Lupus erythematosus SS-A antibody positive Other and unspecified nonspecific immunological findings Long-term use of hydroxychloroquine documented in this encounter [facility] Reason for referral (narrative) Consultation (Routine) - Patient to Arrange Note Date & Type Note Facility Reason for referral (narrati ve) Specialty Diagnoses / Procedures Referred By Contac t Referred To Contact Rheumatology Diagnoses Subacute cutaneous lupus erythematosus Patsy Bashir DO [address] [place] [address] Referral ID Status Reason Start Date Expiration Date V isits Requested Visits Authorized [id number] Patient to Arrange 09/29/2021 10/24/2022 1 1 [facility] Summary Purpose Family History No Family [...] ized section and content) DATE CREATED AUTHOR 05/15/2019 [facility] DATE CREATED AUTHOR AUTHOR'S ORGANIZ ATION 01/15/2023 [facility] Reason for Visit (unrecogniz ed section and content) Reason Comments Follow-up Reason Comments Follow-up Reason Comments New Patient Care Teams (unrecognized sec tion and content) Regional Coordinator Relationship Specialty Start Date End Date Kenzie Torrez DO [address] [place] [phone] PCP - General Family Medicine 04/27/18 Dolores TorrezaDO [address] [place] [address] Family Medicine 04/18/18 Bry Pelaez MD [address] [facility] [place] [address] Cardiovascular Medicine 04/18/18 Lucrecia Balbuena MD [address] [place] [phone] Urologist Urology 02/25/20 Kaylie Leiva MD [address] [place] [address] Consulting Fellow Rheumatology 09/29/21 09/29/21 Regional Coordinator Relationship Specialty Start Date End Date Shan Kenzie [address] [place] [phone] PCP - General Family Medicine 04/27/18 RomainKenzie payneDO [address] [place] [address] Family Medicine 04/18/18 Bry Pelaez MD [address] [facility] [place] [address] Cardiovascular Disease 04/18/18 Lucrecia Balbuena MD [address] [place] [phone] Urologist Urology 02/25/20 Kaylie Leiva MD [address] [place] [address] [facility] Rheumatology 07/08/22 Regional Coordinator Relationship Specialty Start Date End Date Kenzie Torrez DO [address] [place] [phone] PCP - General Family Medicine 04/27/18 Kenzie Torrez DO [address] [place] [phone] Family Medicine 04/18/18 Bry Pelaez MD [address] [facility] [place] [address] Cardiovascular Disease 04/18/18 Lucrecia Balbuena MD [address] [place] [address] Urologist Urology 02/25/20 FOR RECORDS [...] BE BASED ON THE PRIMARY CLINICAL RECORDS. [facility] [employer] provides no warranty or guarantee of the accuracy or completeness of information in this document.
== END | disposition home or self-care (01) ==
LOC: OPBI 07:09
PROVIDERS: PCP Family Medicine; Referring Provider Registered Nurse; Visit Provider Registered Nurse
DX: Z12.31 Encounter for screening mammogram for malignant neoplasm of breast (principal); Z80.3 Family history of malignant neoplasm of breast
CPT/HCPCS: 77063; 77067

== ENCOUNTER → 2024-02-02 | Outpatient (CLI) | payer OTHER, SELFPAY ==
--- NOTE | 2024-02-02 11:02 | US_ITS ---
STUDY: ULTRASOUND BREAST - RIGHT REASON FOR EXAM: Female, 54 years old. Abnormal screening mammogram. TECHNIQUE: Axial and longitudinal images of the RIGHT breast were performed with a high resolution ultrasound transducer. # OF IMAGES: 32 COMPARISON: Comparison is made with prior mammogram dated February 01, 2024. Prior sonogram of the right breast in January 28, 2023. FINDINGS: RIGHT Breast: The upper lateral aspect of the right breast was examined with ultrasound. The mammographic finding corresponds to a 2.6 cm x 2.6 x 1.3 cm cyst at the 10:00 position breast 6 cm from nipple. This also evidence of a 1 cm x 1 cm x 0.9 cm cyst in the retroareolar region as well as a septated cyst measuring 8 mm x 7 mm x 6 mm. A complex cyst is also seen at the 10:00 position breast at 4 cm from the nipple measuring 6 mm x 6 mm x 5 mm. US/Breast Limited Unilateral IMPRESSION: The mammographic and amount corresponds to a dominant cyst. Other cysts are seen as described. ASSESSMENT CATEGORY: BIRADS Category 2: Benign. A letter regarding these results will be sent to the patient by the facility within 30 days. Electronically Signed: Garrett Reed MD at 13:27 EDT ,
== END | disposition home or self-care (01) ==
LOC: OPUS 10:57
PROVIDERS: PCP Family Medicine; Referring Provider Registered Nurse; Visit Provider Registered Nurse
DX: N63.10 Unspecified lump in the right breast, unspecified quadrant (principal)
CPT/HCPCS: 76642

== ENCOUNTER → 2024-02-27 | Outpatient (CLI) | payer OTHER, SELFPAY ==
--- NOTE | 2024-02-27 16:09 | STRESSREP ---
Stress Test Report Exercise myocardial perfusion stress test. 54-year-old lady with a history of coronary artery disease status post coronary bypass surgery Stress protocol: Resting EKG demonstrates normal sinus rhythm with a rate of 62 bpm resting blood pressure is 98/70 mmHg. The patient exercised according to the regular Sukh protocol for a total duration of 10 minutes and 46 seconds attaining a maximum heart rate of 142 bpm which was 85% of maximum predicted heart rate; the maximum workload was 13.4 metabolic equivalents. At rest there were no ST or T wave changes noted to suggest ischemia and at peak exercise upsloping ST changes only were noted which did not meet the criteria for ischemia. No clinical angina was noted the test was terminated due to the target heart rate being achieved/fatigue. The peak blood pressure was 132/70 mmHg. Rate-pressure product was 16,700. Myocardial perfusion protocol. 11 point mCi of technetium 99m sestamibi was injected at rest. The patient exercised according to regular Sukh protocol for total duration of 10 minutes and 46 seconds and at peak exercise 34 point mCi of technetium 99m sestamibi was injected stress images were obtained stress and rest images were reconstructed in comparing the short axis vertical long and horizontal long axis. Gated images were also obtained. Perfusion SPECT analysis: Review of the stress images demonstrate normal uptake of tracer noted in all areas of the myocardium. The resting images similarly demonstrate normal uptake of tracer noted in all areas of the myocardium. No areas of reversibility are noted to suggest ischemia no previous infarct was noted. Gated SPECT analysis: The gated ejection fraction is 55%. Conclusion: Normal exercise myocardial perfusion stress test at a high workload Preserved ejection fraction.
== END | disposition home or self-care (01) ==
LOC: CVS 06:08
PROVIDERS: PCP Family Medicine; Referring Provider Internal Medicine Cardiovascular Disease; Visit Provider Internal Medicine Cardiovascular Disease
DX: I25.10 Atherosclerotic heart disease of native coronary artery without angina pectoris (principal); Z95.5 Presence of coronary angioplasty implant and graft
CPT/HCPCS: 78452; 93017; A9500; A4216

== ENCOUNTER → 2024-07-17 | Outpatient (CLI) | payer OTHER, SELFPAY ==
[2024-07-23 11:08] LABS: HPV APTIMA, High Risk Negative (Negative)
== END | disposition home or self-care (01) ==
LOC: BWCLAB 15:41
PROVIDERS: PCP Family Medicine; Referring Provider Nurse Practitioner Family; Visit Provider Nurse Practitioner Family
DX: Z12.4 Encounter for screening for malignant neoplasm of cervix (principal); Z13.29 Encounter for screening for other suspected endocrine disorder
CPT/HCPCS: 36415; 84439; 84443; 87624; 88175; G0145

== ENCOUNTER → 2024-11-26 | Outpatient (CLI) | payer OTHER, SELFPAY ==
--- NOTE | 2024-11-26 12:15 | RAD_ITS ---
PROCEDURE: SHOULDER MIN 2 VIEWS 11/26/2024 REASON FOR EXAM: PAIN TECHNIQUE: SHOULDER MIN 2 VIEWS Laterality: Right COMPARISON: None FINDINGS: Bones: There are no fractures or dislocations. A 4 mm lucent lesion is seen in the right radial head with a sclerotic margin. This is most compatible with a benign bony cyst. The visualized right ribs are unremarkable. Joints: Mild arthritic changes are seen involving the acromioclavicular joint. Glenohumeral joint is well preserved. The acromial humeral space is well preserved. The coracoclavicular space is well preserved. Soft tissues: The visualized right lung is clear. Soft tissues are grossly unremarkable. RAD/Shoulder min 2 Views IMPRESSION: The 4 mm lucent lesion in the right radial head has benign features and is most compatible with a benign bony cyst. Mild arthritic changes are seen involving the right acromioclavicular joint. Reading Location: [id number]
== END | disposition home or self-care (01) ==
LOC: RAD 12:11
PROVIDERS: PCP Family Medicine; Referring Provider Orthopaedic Surgery Sports Medicine; Visit Provider Orthopaedic Surgery Sports Medicine
DX: M25.511 Pain in right shoulder (principal)
CPT/HCPCS: 73030

== ENCOUNTER → 2024-12-05 | Outpatient (CLI) | payer OTHER, SELFPAY ==
--- NOTE | 2024-12-05 06:45 | MRI_ITS ---
PROCEDURE: UPPER EXT JOINT ONLY(ROUTINE) 12/05/2024 REASON FOR EXAM: PAIN, EVAL FOR CUFF TEARS TECHNIQUE: T1, T2, PD, MRI right shoulder) multiplanar and multisequence images were obtained without IV contrast administration. COMPARISON: COMPARISON: November 26, 2024 x-ray FINDINGS: Bone Marrow: There is no bony contusion or occult fracture. Subcortical cyst formation is noted deep to the supraspinatus and infraspinatus insertions. AC joint: There is moderate AC joint hypertrophy without evidence of separation. There is a trace AC joint effusion. There is a type 3 acromion with impingement configuration. Rotator cuff: There is a partial-thickness, 50% width bursal surface tear of the supraspinatus footplate without retraction. There is moderate distal infraspinatus and subscapularis tendinopathy without full-thickness tear or retraction. The teres minor appears intact. Labrum: There is no labral tear. Biceps tendon: The biceps tendon is present in the biceps tendon groove, with intact anchors. Effusion: There is a small joint effusion. There is fluid in the subacromial subdeltoid bursa, with bursitis. There is an enlarged right axillary lymph node measuring 1.7 x 1.5 cm. MRI/Upper Ext Joint Only(Routine) IMPRESSION: Subcortical cyst formation is noted deep to the supraspinatus and infraspinatus insertions. There is moderate AC joint hypertrophy without evidence of separation. There is a trace AC joint effusion. There is a type 3 acromion with impingement configuration. There is a partial-thickness, 50% width bursal surface tear of the supraspinatu s footplate without retraction. There is moderate distal infraspinatus and subscapularis tendinopathy without f ull-thickness tear or retraction. The teres minor appears intact. There is a small joint effusion. There is fluid in the subacromial subdeltoid b ursa, with bursitis. There is an enlarged right axillary lymph node measuring 1.7 x 1.5 cm. Reading Location: [facility]
--- OUTSIDE RECORDS SUMMARY | 2024-12-05 07:15 | XMS RPT_ITS | CCD ---
Author Organization [facility] Care Team Providers Care [employer]ry Good[employer] Maker Name Role Phone [place] [employer], Jazzy Jackson Unavailable Dr. Kenzie Torrez Primary Care Provider Dr. Kenzie Torrez Referring Provider [phone] Friend, Dr. Asher Attending Provider [phone] Dr. Renetta Chin Attending Provider Dr. Bry Pelaez Attending Provider [phone] Kenzie Torrez Primary Care Provider Dr. Kenzie Torrez Referring Provider Shavon, Dr. Asher Attending Provider Shan COHEN Kenzie Unavailable Bry Pelaez MD Unavailable Kenzie Torrez DO Primary Care Provider Sree LAFLEUR, Lucrecia Unavailable Cali LAFLEUR, Lela Unavailable Dr. Kenzie Torrez Primary Care Provider Dr. Kenzie Torrez Referring Provider Dr. Bry Pelaez Attending Provider SHASHI Crisostomo Attending Provider Roya [employer], [employer]-C Fabiola Teran Attending Provider [phone] Shan COHEN Kenzie Unavailable Bry Pelaez MD Unavailable Kenzie Torrez DO Primary Care Provider Sree LAFLEUR, Lucrecia Unavailable Cali LAFLEUR, Lela Unavailable Malys DO, Kenzie Unavailable Latanya LAFLEUR, [place] S Unavailable Malys DO, Kenzie Primary Care Provider Sree LAFLEUR, Lucrecia Unavailable Shan, Dr. Espino Primary Care Provider Shan, Dr. Espino Referring Provider Friend, Dr. Asher Attending Provider Friend, Dr. Asher Other Provider Shan, Dr. Espino Primary Care Provider Shan, Dr. Espino Referring Provider Friend, Dr. Asher Attending Provider [phone] Friend, Dr. Asher Other Provider Shan, Dr. Espino Primary Care Provider Shan, Dr. Espino Referring Provider SHASHI Crisostomo Attending Provider [phone] MICHELLE CORBIN A Attending Unavailable MALDYLAN, KENZIE Primary Care Unavailable KATEL, NIPEN Referring Unavailable KATEL, NIPEN Referring Unavailable CORBIN, MIHCELLE A Attending Unavailable JOSE DAVIDYS, KENZIE Primary Care Unavailable Shan DO, Dr. Espino Primary Care Provider [phone] Shan COHEN, Dr. Espino Referring Provider Lul Leiva Attending Provider Margaret Flynn Attending Provider [phone] Margaret Flynn Referring Provider [phone] Raphael LAFLEUR, Dr. Cruz Attending Provider Shan COHEN, Dr. Espino Primary Care Provider [phone] Shan COHEN, Dr. Espino Referring Provider [phone] Latanya LAFLEUR, Dr. Londono Attending Provider [phone] Shan COHEN, Dr. Espino Primary Care Provider [phone] Shan COHEN, Dr. Espino Referring Provider Assessment, Health Risk Attending Provider Unava ilable Assessment, Health Risk Referring Provider Unava ilable Zechariah Fajardo MD Attending Provider Zechariah Fajardo MD Referring Provider [phone] Assessment, Health Risk Referring Unavaila ble Assessment, Health Risk Attending Unavaila ble Malys, Kenzie Primary Care Unavailable Malys, Kenzie Referring Unavailable Zechariah Fajardo Attending Unavailable Malys, Kenzie Primary Care Unavailable MollZechariah galarza Referring Unavailable MollZechariah galarza Attending Unavailable Malys, Kenzie Primary Care Unavailable Malys, Kenzie Primary Care Unavailable Assessment, Health Risk Referring Unavaila ble Assessment, Health Risk Attending Unavaila ble Lul Leiva Attending Unavailable Malys, Kenzie Referring Unavailable Malys, Kenzie Primary Care Unavailable Malys, Kenzie Referring Unavailable Nancy Lim Attending Unavailable Malys, Kenzie Primary Care Unavailable Malys, Kenzie Primary Care Unavailable Malys, Kenzie Referring Unavailable Latanya, Bry Attending Unavailable Malys, Kenzie Referring Unavailable Malys, Kenzie Primary Care Unavailable Latanya, [place] Attending Unavailable Malys, Kenzie Referring Unavailable Malys, Kenzie Primary Care Unavailable Zechariah Fajardo Attending Unavailable Malys, Kenzie Referring Unavailable Malys, Kenzie Primary Care Unavailable Zechariah Fajardo Attending Unavailable Malys, Kenzie Primary Care Unavailable Danuta Dunn NP Attending Unavailable Malys, Kenzie Primary Care Unavailable Latanya, Bry Consulting Unavailable Latanya, [place] Referring Unavailable Latanya, Bry Attending Unavailable Malys, Kenzie Referring Unavailable BarkMargaret rick Attending Unavailable Malys, Kenzie Primary Care Unavailable Malys, Kenzie Primary Care Unavailable Crisostomo, Dana Referring Unavailable Kranthi, Dana Attending Unavailable Malys, Kenzie Primary Care Unavailable Krnathi, Dana Referring Unavailable Kranthi, Dana Attending Unavailable Margaret Frederick Referring Unavailable BarkMargaret rick Attending Unavailable Malys, Kenzie Primary Care Unavailable Malys, Kenzie Primary Care Unavailable Latanya, Bry Referring Unavailable Latanya, [place] Attending Unavailable Allergies Allergy Classification Reported Allergen(s) Allergy Type Date of Onset Reaction(s) Facility (1 source) sulfamethoxazole / trimethoprim drug allergy 04-29-19 17 [facility] (16 sources) traMADol drug allergy 04-29-19 17 Other [facility] (17 sources) Colchicine Drug Allergy 01-09-20 19 [facility] Omeprazole Drug Allergy 05-04-19 19 lupus rash [facility] (16 sources) Sulfonamides (Antibiotic); Translations: [Sulfa (Sulfonamide Antibiotics)] Allergy to substance 07-15-19 22 Nausea/Vom/[place] rrhea [facility] Comment on above: SEVERE VOMITTING AND TACHYCARDIA (16 sources) Dftohry-Frv-Gdm Reductase Inhibitor; Translations: [Qavuelj-Meu-Fdt Reductase Inhibitor] Allergy to substance 07-15-19 fever, abn liver function test [facility] (4 sources) Hmg-Coa Reductase Inhibitors (Statins) Propensity to adverse reactions to drug 04-17-19 19 Abdominal Discomfort [facility] (4 sources) Sulfonamides (Antibiotic) Propensity to adverse reactions to drug 04-17-19 19 Nausea and Vomiting, Tachycardia [facility] (4 sources) traMADol Drug Allergy 04-17-19 19 Nausea and Vomiting, Dizzy/Vertigo [facility] (2 sources) Colchicine Drug Allergy 01-09-20 19 [facility] Colchicine Drug Allergy 11-28-19 25 [facility] (1 source) Omeprazole Drug Allergy 11-28-19 25 [facility] (1 source) traMADol Drug Allergy 11-28-19 25 [facility] Medications Current Medications Medication Drug Class(es) Dates Sig (Normalized) Sig (Original) busPIRone hydrochloride 5 mg oral tablet (17 sources) Start: 09-27-2024 take 1 tablet by mouth twice daily Buspirone 5 mg tablet Active 5 mg PO TWICE A DAY September 27, 2024 12:00am Anxiety Start: 04-28-2022 End: 03-28-2024 take 1 tablet by mouth twice daily Buspirone 5 mg tablet Discontinued 5 mg PO TWICE A DAY April 28, 2022 1:00am March 28, 2024 7:39am take 1 tablet by mouth once busP IRone 5 MG tablet Take 1 tablet by mouth once. Active cholecalciferol 0.05 mg oral capsule (19 sources) Vitamin D Start: 01-09-2021 take 1 capsule by mouth once daily Cholecalciferol (Vitamin D3) 50 mcg (2,000 unit) capsule Active 50 ug PO DAILY January 09, 2021 12:00am hydroxychloroquine sulfate 200 mg oral tablet (20 sources) Antimalarial, Antirheumatic Agent Start: 07-17-2024 End: 09-27-2024 take 1 tablet by mouth once daily Hydroxychloroquine 200 mg tablet Active 200 mg PO daily September 27, 2024 10:34am Start: 11-04-2023 take 1.5 tablets by mouth once daily Hydroxychloroquine 200 MG tablet Indications: Subacute cutaneous lupus erythematosus Take 1.5 tablets by mouth daily. Requires annual eye exam/retinal monitoring. 135 tablet 11/04/2023 Active Start: 07-08-2022 take 1.5 tablets by mouth once daily [...] exam/retinal monitoring. 45 tablet 11 02/24/2021 Active Start: 03-15-2019 End: 03-28-2024 take 1 tablet by mouth once daily, then take 2 tablets by mouth every other day Hydroxychloroquine (Plaquenil) 200 mg tablet Discontinued 200 mg PO DAILY January 09, 2021 1:52pm March 28, 2024 7:39am one tablet alternating two tablets QOD levonorgestrel 0.970954 mg/hr intrauterine system (20 sources) Progestin, Progestin-containing Intrauterine Device Start: 07-17-2024 Levonorgestrel (Mirena) 21 mcg/24hr (up to 8 yrs) 52 mg intrauterine device Active 1 NMA INTRA-UTER ONCE July 17, 2024 3:20pm as a single dose; 2018 Start: 06-15-2023 End: 07-17-2024 Levonorgestrel (Mirena) 21 m cg/24 hours (8 yrs) 52 mg intrauterine device Discontinued 1 NMA INTRA-UTER ONCE June 15, 2023 1:00am July 17, 2024 4:35pm as a single dose Start: 06-15-2023 Levonorgestrel (Mirena) 21 mcg/24 hours (8 yrs) 52 mg intrauterine device Active 1 DEVICE INTRA-UTER ONCE June 15, 2023 1:00am as a single dose Start: 08-29-2018 End: 10-24-2018 Levonorgestrel (Mirena) 20 m cg/24 hours (5 yrs) 52 mg intrauterine device Discontinued 1 NMA INTRA-UTER .COMPLEX August 29, 2018 12:00am October 24, 2018 4:11pm 1 device intrauterine placed 10/2013; Start: 08-29-2018 End: 10-24-2018 Levonorgestrel (Mirena) 20 m cg/24 hours (5 yrs) 52 mg intrauterine device Discontinued 1 DEVICE INTRA-UTER .COMPLEX August 29, 2018 12:00am October 24, 2018 4:11pm 1 device intrauterine placed 10/2013; magnesium glycinate 100 mg oral tablet (3 sources) Start: 09-27-2024 Magnesium Glycinate 100 mg tablet Active 600 mg PO daily September 27, 2024 12:00am soy protein isolate 100 mg oral capsule (3 sources) Start: 09-27-2024 take 1 mg by mouth at bedtime Soy Isoflavone 100 mg capsule Active mg PO BEDTIME September 27, 2024 12:00am zolpidem tartrate 5 mg oral tablet (2 sources) gamma-Aminobutyr ic Acid-ergic Agonist Start: 09-27-2024 take 1 tablet by mouth at bedtime Zolpidem (Ambien) 5 mg tablet Active 5 mg PO AT BEDTIME 60 1 September 27, 2024 12:00am Completed/Discontinued Medications Medication Drug Class(es) Dates Sig (Normalized) Sig (Original) acetaminophen 325 mg / oxyCODONE hydrochloride 5 mg oral tablet (7 sources) Opioid Agonist Start: 04-19-2023 End: 01-31-2024 Oxycodone-Acetami nophen (Percocet) 5-325 mg tablet Discontinued 1 - 2 {tbl} PO EVERY 6 HOURS as needed for pain 28 4 0 April 19, 2023 January 31, 2024 2:12pm Left foot pain Pain in left foot amiodarone hydrochloride 200 mg oral tablet (15 sources) Antiarrhythmic Start: 05-06-2018 End: 05-09-2018 take 1 tablet by mouth once daily Amiodarone 200 MG tablet Discontinued 200 mg PO DAILY May 06, 2018 1:00am May 09, 2018 12:14pm heart amLODIPine 2.5 mg oral tablet (15 sources) Dihydropyridine Calcium Channel Edison Start: 04-14-2018 End: 07-26-2018 take 1 tablet by mouth at bedtime Amlodipine 2.5 mg tablet Discontinued 2.5 mg PO AT BEDTIME April 14, 2018 1:00am July 26, 2018 8:05am bp amoxicillin 500 mg oral tablet (19 sources) Penicillin-class Antibacterial Start: 03-28-2024 End: 07-17-2024 take 1 tablet by mouth three times daily Amoxicillin 500 mg tablet Discontinued 500 mg PO THREE TIMES A DAY 30 0 March 28, 2024 1:00am July 17, 2024 2:43pm Start: 12-13-2018 End: 02-13-2019 take 1 tablet by mouth twice daily Amoxicillin 875 mg tablet Discontinued 875 mg PO TWICE A DAY 20 0 December 13, 2018 12:00am February 13, 2019 4:25pm amoxicillin 875 mg / clavulanate 125 mg oral tablet (1 source) Penicillin-class Antibacterial Start: 04-29-2016 End: 05-06-2016 AMOXICILLIN-POT CLAVULANATE 875-125 MG TABS Take one tab Twice daily AMOXICILLIN-POT CLAVULANATE [id number] Tim REESE aspirin 81 mg delayed release oral tablet (20 sources) Platelet Aggregation Inhibitor, Nonsteroidal Anti-inflammatory Drug Start: 12-20-2017 End: 09-27-2024 take 1 tablet by mouth once daily Aspirin (Adult Aspirin Regimen) 81 mg tablet,delayed release (DR/EC) Discontinued 81 mg PO DAILY 90 3 December 23, 2017 12:00am September 27, 2024 10:35am aspirin 81 MG Ch ew Tab chewable tablet Chew 1 tablet daily every morning. Active azaTHIOprine 50 mg oral tablet (20 sources) Purine Antimetabolite Start: 09-23-2020 End: 01-10-2023 take 2 tablets by mouth at bedtime azaTHIOprine (Imuran) 50 MG tablet Take 2 tablets by mouth at bedtime. 60 tablet 3 09/23/2020 01/10/2023 Discontinued Start: 03-24-2018 End: 10-30-2021 take 25 mg by mouth at bedtime Azathioprine Discontinu ed 25 MG PO AT BEDTIME March 24, 2018 3:36pm October 30, 2021 3:31pm Start: 01-10-2018 End: 10-30-2021 take 1 tablet by mouth at bedtime Azathioprine 50 mg tablet Discontinued 25 mg PO AT BEDTIME March 24, 2018 3:36pm October 30, 2021 3:31pm ulcerative colitis Start: 01-10-2018 End: 03-24-2018 take 150 mg by mouth once daily Azathioprine Discontin ued 150 MG PO DAILY@[email or web address] 10, 2018 12:00am March 24, 2018 3:36pm Start: 12-19-2017 End: 12-23-2017 take 1 tablet by mouth once daily Azathioprine 50 MG tablet Discontinued 150 mg PO DAILY@799December 19, 2017 12:00am December 23, 2017 2:18pm Start: 12-19-2017 End: 12-23-2017 take 150 mg by mouth once daily Azathioprine Discontin ued 150 MG PO DAILY@799December 19, 2017 12:00am December 23, 2017 2:18pm Start: 04-29-2016 IMURAN 50 MG T ABS 150mg daily AZATHIOPRINE [id number] Mariel Varela LPN Start: 04-24-2013 End: 04-20-2017 take 1 tablet by mouth once daily Azathioprine 50 MG tablet Discontinued 150 mg PO DAILY@799April 24, 2013 1:00am April 20, 2017 4:06pm Start: 04-24-2013 End: 04-20-2017 take 150 mg by mouth once daily Azathioprine Discontin ued 150 MG PO DAILY@799April 24, 2013 1:00am April 20, 2017 4:06pm betamethasone 0.5 mg/ml / clotrimazole 10 mg/ml topical cream (15 sources) Azole Antifungal, Corticosteroid Start: 02-08-2018 End: 03-24-2018 Clotrimazole-Betamethasone (Lotrisone) 1-0.05 % cream Discontinued 1 NMA TOPICAL TWICE A DAY 45 28 2 February 08, 2018 12:00am May 02, 2018 1:00am March 24, 2018 3:41pm to affected areas Start: 02-08-2018 End: 03-24-2018 Clotrimazole-Betamethasone ( Lotrisone) 1-0.05 % cream Discontinued 1 APPLIC TOPICAL TWICE A DAY 45 February 08, 2018 12:00am March 24, 2018 3:41pm to affected areas clopidogrel 75 mg oral tablet (20 sources) [id number] Platelet Inhibitor Start: 08-08-2018 End: 08-10-2019 take 1 tablet by mouth four times daily Clopidogrel 75 mg tablet Discontinued 75 mg PO DAILY 90 August 10, 2019 8:55am August 10, 2019 8:55am cardiac 4 DAYS PRIOR WILL STOP Start: 05-06-2018 End: 08-08-2024 take 1 tablet by mouth once daily Clopidogrel 75 mg tablet Discontinued 75 mg PO DAILY 90 3 August 05, 2023 10:38am August 08, 2024 3:51pm cardiac colchicine 0.6 mg oral capsule (15 sources) Start: 05-06-2018 End: 05-09-2018 take 1 capsule by mouth once daily Colchicine 0.6 MG capsule Discontinued 0.6 mg PO DAILY May 06, 2018 1:00am May 09, 2018 12:14pm pericarditis diazePAM 5 mg oral tablet (15 sources) Benzodiazepine Start: 04-26-2019 End: 09-13-2019 Diazepam (Valium) 5 mg tablet Discontinued 5 mg PO ONCE 1 0 April 26, 2019 1:00am September 13, 2019 4:01pm Take 30 minutes prior to procedure. ezetimibe 10 mg oral tablet (20 sources) Dietary Cholesterol Absorption Inhibitor Start: 12-20-2018 End: 09-27-2024 take 1 tablet by mouth once daily Ezetimibe 10 mg tablet Discontinued 0 .ROUTE .COMPLEX 90 3 October 27, 2023 1:07pm September 27, 2024 10:39am TAKE 1 TABLET BY MOUTH ONCE DAILY famotidine 40 mg oral tablet (20 sources) Histamine-2 Receptor Antagonist Start: 04-06-2023 End: 01-31-2024 take 1 tablet by mouth twice daily Famotidine 40 mg tablet Discontinued 40 mg PO TWICE A DAY 60 0 April 06, 2023 1:00am January 31, 2024 2:11pm Start: 05-09-2018 End: 06-13-2018 take 1 tablet by mouth twice daily Famotidine 20 MG tablet Discontinued 20 mg PO TWICE A DAY 63 0 May 09, 2018 1:00am June 13, 2018 1:02pm Use while on indomethacin folic acid 1 mg oral tablet (20 sources) Start: 09-13-2019 End: 07-17-2024 take 1 tablet by mouth once daily Folic Acid 1 mg tablet Discontinued 1 mg PO DAILY 90 December 16, 2023 10:04am July 17, 2024 2:43pm take 400 ug by mouth once daily FOLIC ACID PO Take 400 mcg by mouth daily. Active take 400 ug by mouth once daily FOLIC ACID PO Take 400 mcg by mouth daily. 0 Active furosemide 20 mg oral tablet (15 sources) Loop Diuretic Start: 05-06-2018 End: 05-09-2018 take 1 tablet by mouth once daily Furosemide 20 MG tablet Discontinued 20 mg PO DAILY May 06, 2018 1:00am May 09, 2018 12:14pm diuretic hydroCHLOROthiazide 12.5 mg oral tablet (15 sources) Thiazide Diuretic Start: 02-19-2021 End: 02-23-2021 take 1 tablet by mouth once daily Hydrochlorothiazide 12.5 mg tablet Discontinued 12.5 mg PO DAILY 30 February 19, 2021 1:00am February 23, 2021 10:56am indomethacin 25 mg oral capsule (15 sources) Nonsteroidal Anti-inflammator y Drug Start: 05-09-2018 End: 06-13-2018 take 1 capsule by mouth three times daily at mealtime Indomethacin 25 MG capsule Discontinued 25 mg PO 3 TIMES DAILY WITH MEALS 63 0 May 09, 2018 1:00am June 13, 2018 1:02pm TID x 3 weeks 24 hr isosorbide mononitrate 30 mg extended release oral tablet (15 sources) Nitrate Vasodilator Start: 04-06-2018 End: 04-10-2018 take 1 tablet by mouth once daily, then take 1 tablet by mouth every twenty-four hours Isosorbide Mononitrate 30 mg tablet extended release 24 hr Discontinued 30 mg PO DAILY 30 April 06, 2018 1:00am April 10, 2018 11:56am lisinopril 5 mg oral tablet (20 sources) Angiotensin Converting Enzyme Inhibitor Start: 09-02-2022 End: 08-31-2024 take 1 tablet by mouth twice daily Lisinopril 5 mg tablet Discontinued 5 mg PO TWICE A DAY 180 September 06, 2023 2:02pm August 31, 2024 1:04pm Start: 04-01-2022 End: 09-02-2022 take 1 tablet by mouth twice daily Lisinopril 10 mg tablet Discontinued 10 mg PO TWICE A DAY 180 September 02, 2022 12:41pm September 02, 2022 2:34pm Start: 02-23-2021 End: 04-01-2022 take 1 tablet by mouth twice daily Lisinopril 5 mg tablet Discontinued 5 mg PO TWICE A DAY 180 April 27, 2021 11:07am April 01, 2022 1:08pm Start: 02-19-2021 End: 02-23-2021 take 1 tablet by mouth once daily in the morning, then take 2 tablets by mouth in the evening Lisinopril 2.5 mg tablet Discontinued 7.5 mg PO DAILY February 19, 2021 8:45pm February 23, 2021 10:57am one tablet in AM and two tablets in PM Start: 02-19-2021 End: 02-23-2021 take 1 tablet by mouth once daily in the morning, then take 2 tablets by mouth in the evening Lisinopril Discontinued 7.5 MG PO DAILY February 19, 2021 8:45pm February 23, 2021 10:57am one tablet in AM and two tablets in PM Start: 02-16-2021 End: 02-19-2021 take 1 tablet by mouth twice daily Lisinopril 2.5 mg tablet Discontinued 2.5 mg PO TWICE A DAY 60 February 16, 2021 1:00am February 19, 2021 8:46pm Start: 08-29-2020 End: 02-16-2021 take 1 tablet by mouth once daily Lisinopril 5 mg tablet Discontinued 5 mg PO DAILY 90 August 29, 2020 12:00am February 16, 2021 2:46pm Start: 01-11-2018 End: 03-24-2018 take 2.5 mg by mouth once daily Lisinopril 5 mg tablet Discontinued 2.5 mg PO DAILY January 11, 2018 4:23pm March 24, 2018 3:59pm Start: 01-11-2018 End: 03-24-2018 take 2.5 mg by mouth once daily Lisinopril Discontinue d 2.5 MG PO DAILY January 11, 2018 4:23pm March 24, 2018 3:59pm Start: 12-23-2017 End: 01-11-2018 take 1 tablet by mouth once daily Lisinopril 5 mg tablet Discontinued 5 mg PO DAILY December 23, 2017 12:00am January 11, 2018 4:31pm LORazepam 0.5 mg oral tablet (2 sources) Benzodiazepine Start: 11-27-2024 End: 11-28-2024 Lorazepam (Ativan) 0.5 mg tablet Discontinued 0.5 mg PO ONCE as needed for before mri 2 1 0 November 27, 2024 12:00am November 27, 2024 12:00am November 28, 2024 12:07am Right shoulder pain Pain in right shoulder take 1 tab 60 mins before MRI, if no effect in 60 mins, then take other tab megestrol acetate 40 mg oral tablet (20 sources) Progestin Start: 11-09-2018 End: 12-13-2018 Megestrol 40 MG tablet Discontinued 40 mg PO DAILY November 24, 2018 8:16am December 13, 2018 1:20pm 40 mg PO 1 tid until bleeding stops X 24 hr and then bid to finish Rx; methocarbamol 500 mg oral tablet (15 sources) Muscle Relaxant Start: 05-10-2021 End: 04-20-2022 take 1-2 tablets by mouth four times daily as needed for pain Methocarbamol 500 mg tablet Discontinued 500 mg PO 4 TIMES DAILY NEEDED as needed for Muscle pain/spasm 56 0 May 10, 2021 7:04am April 20, 2022 11:42am 1 to 2 pills by mouth 4 times daily as needed muscle pain/spasm 24 hr metoprolol succinate 25 mg extended release oral tablet (20 sources) beta-Adrenergic Edison Start: 12-20-2017 End: 09-27-2024 take 1 tablet by mouth once daily Metoprolol Succinate 25 mg tablet extended release 24 hr Discontinued 25 mg PO DAILY January 19, 2024 9:37am September 27, 2024 10:39am Multivitamin With Folic Acid (11 sources) Start: 04-24-2013 End: 04-20-2017 take 1 tablet by mouth once daily Multivitamin With Folic Acid Discontinued 1 TABLET PO DAILY April 24, 2013 10:41am April 20, 2017 4:06pm Start: 04-24-2013 End: 04-20-2017 take 1 tablet by mouth once daily Multivitamin With Folic Acid Discontinued 1 TABLET PO DAILY April 24, 2013 1:00am April 20, 2017 4:06pm Start: 04-24-2013 End: 04-20-2017 take 1 tablet by mouth once daily Multivitamin With Folic Acid Discontinued 1 TABLET PO DAILY April 24, 2013 12:00am April 20, 2017 3:06pm Multivitamin With Folic Acid 1 TABLET tablet (4 sources) Start: 04-24-2013 End: 04-20-2017 take 1 tablet by mouth once daily Multivitamin With Folic Acid 1 TABLET tablet Discontinued 1 {tbl} PO DAILY April 24, 2013 1:00am April 20, 2017 4:06pm naproxen 250 mg oral tablet (15 sources) Nonsteroidal Anti-inflammatory Drug Start: 11-30-2018 End: 12-13-2018 take 250-500 mg by mouth every eight hours as needed for pain Naproxen 250 MG tablet Discontinued 250 - 500 mg PO EVERY 8 HOURS NEEDED as needed for MILD PAIN 30 November 30, 2018 12:00am December 13, 2018 8:32am nitroglycerin 0.4 mg sublingual tablet (15 sources) Nitrate Vasodilator Start: 12-29-2018 End: 04-28-2022 Nitroglycerin 0.4 mg tablet, sublingual Discontinued 0.4 mg SL every 5 to 15 minutes as needed for chest pain 30 December 29, 2018 12:00am April 28, 2022 10:01am until response; do not exceed 3 doses per episode Start: 12-29-2018 End: 04-28-2022 Nitroglycerin Discontinued 0 .4 MG SL every 5 to 15 minutes December 29, 2018 12:00am April 28, 2022 10:01am until response; do not exceed 3 doses per episode omeprazole 20 mg delayed release oral capsule (20 sources) Proton Pump Inhibitor Start: 01-11-2018 End: 04-20-2018 take 2 capsules by mouth once daily as needed for gastroesophageal reflux disease Omeprazole 20 mg capsule,delayed release(DR/EC) Discontinued 40 mg PO DAILY as needed for reflux January 11, 2018 4:11pm April 20, 2018 10:29am Start: 01-11-2018 End: 04-20-2018 take 40 mg by mouth once daily Omeprazole Discontinued 40 MG PO DAILY January 11, 2018 4:11pm April 20, 2018 10:29am Start: 12-19-2017 End: 01-11-2018 take 1 capsule by mouth once daily Omeprazole 20 MG capsule Discontinued 20 mg PO DAILY December 19, 2017 12:00am January 11, 2018 4:13pm ondansetron 8 mg disintegrating oral tablet (7 sources) Serotonin-3 Receptor Antagonist Start: 04-06-2023 End: 01-31-2024 take 1 tablet by mouth every eight hours Ondansetron 8 mg tablet,disintegrating Discontinued 8 mg PO Q8H 90 0 April 06, 2023 1:00am January 31, 2024 2:12pm microencapsulated potassium chloride 20 meq extended release oral tablet (15 sources) Start: 05-06-2018 End: 05-09-2018 take 1 tablet by mouth once daily Potassium Chloride 20 MEQ Tab.Er.Prt Discontinued 20 meq PO DAILY May 06, 2018 1:00am May 09, 2018 12:14pm supplement with lasix rosuvastatin calcium 5 mg oral tablet (20 sources) HMG-CoA Reductase Inhibitor Start: 08-24-2022 take 1 tablet by mouth once Rosuvastatin Active 0 .ROUTE .COMPLEX 36 August 24, 2022 8:56am TAKE 1 TABLET BY MOUTH EVERY TUESDAY, TUESDAY, AND TUESDAY Start: 05-06-2018 End: 08-24-2022 Rosuvastatin 5 mg tablet Dis continued 5 mg PO MOWEFR 39 90 4 June 18, 2021 10:38am August 24, 2022 8:56am Cholesterol Start: 04-19-2018 End: 09-27-2024 take 1 tablet by mouth once Rosuvastatin 5 mg tablet Discontinued 0 .ROUTE .COMPLEX 36 4 October 27, 2023 3:05pm September 27, 2024 10:39am TAKE 1 TABLET BY MOUTH EVERY TUESDAY, TUESDAY, AND TUESDAY sertraline 25 mg oral tablet (11 sources) Serotonin Reuptake Inhibitor Start: 04-20-2022 End: 04-28-2022 take 1 tablet by mouth once daily Sertraline 25 mg tablet Discontinued 25 mg PO DAILY April 20, 2022 1:00am April 28, 2022 10:01am sucralfate 1000 mg oral tablet (20 sources) Aluminum Complex Start: 01-11-2018 End: 04-20-2018 take 1 tablet by mouth four times daily Sucralfate (Carafate) 1 gram tablet Discontinued 1 g PO .qid March 24, 2018 3:41pm April 20, 2018 10:35am Start: 01-10-2018 End: 01-11-2018 take 1 g by mouth four times daily Sucralfate 1 GM/10 ML suspension Discontinued 1 g PO 4 TIMES DAILY 120 30 0 January 10, 2018 12:00am February 08, 2018 12:00am January 11, 2018 4:13pm terconazole 4 mg/ml vaginal cream (15 sources) Azole Antifungal Start: 02-13-2019 End: 02-21-2019 Terconazole 0.4 % cream Discontinued 1 NMA VAGINAL AT BEDTIME 45 7 0 February 13, 2019 1:00am February 19, 2019 1:00am February 21, 2019 1:07am Start: 02-13-2019 End: 02-21-2019 Terconazole Discontinued 1 A PPFUL VAGINAL AT BEDTIME 45 7 February 13, 2019 1:00am February 21, 2019 1:07am ticagrelor 90 mg oral tablet (20 sources) Start: 12-20-2017 End: 02-13-2018 take 1 tablet by mouth twice daily Ticagrelor 90 mg tablet Discontinued 90 mg PO TWICE A DAY 60 11 February 13, 2018 10:00am February 13, 2018 10:04am Problems Active Problems Problem Classification Problem Date Documented Da te Episodic/Chronic Abdominal pain (15 sources) Abdominal pain; Translations: [Unspecified abdominal pain] 05-07-2018 Episodic Conditions associated with dizziness or vertigo (15 sources) Dizziness; Translations: [Dizziness and giddiness] 04-19-2022 Episodic Contraceptive and procreative management (15 sources) Intrauterine contraceptive device in situ; Translations: [Presence of (intrauterine) contraceptive device] 11-21-2018 Episodic Comment on above: Mirena placed [facility] 2013 Coronary atherosclerosis and other heart disease (20 sources) Coronary atherosclerosis; Translations: [Atherosclerotic heart disease of mentasta coronary artery with unspecified angina pectoris] Onset: 04-17-2018 04-17-2018 Chronic Disorders of lipid metabolism (20 sources) Hyperlipidemia; Translations: [Hyperlipidemia, unspecified] Chronic Essential hypertension (4 sources) Essential hypertension; Translations: [Essential (primary) hypertension] Onset: 04-17-2018 04-17-2018 Chronic Genitourinary symptoms and ill-defined conditions (15 sources) History of hematuria; Translations: [Personal history of other diseases of urinary system] 08-25-2020 Episodic Comment on above: plans to see Dr Ericka browning Headache; including migraine (15 sources) Headache; Translations: [Headache] 07-14-2021 Episodic Immunizations and screening for infectious disease (20 sources) Contact with or exposure to other viral diseases; Translations: [Exposure to confirmed case of COVID-19] Onset: 06-12-2018 Episodic Menopausal disorders (6 sources) Menopausal syndrome; Translations: [Menopausal and female climacteric states] 07-17-2024 Chronic Mycoses (15 sources) Tinea corporis; Translations: [Tinea corporis] 05-07-2018 Episodic Nonmalignant breast conditions (7 sources) Breast lump; Translations: [Unspecified lump in the left breast, unspecified quadrant] Onset: 02-27-2024 07-17-2024 Episodic Comment on above: dx mamm/US Nonspecific chest pain (19 sources) Chest pain; Translations: [Chest pain, unspecified] Onset: 04-17-2018 04-17-2018 Episodic Other aftercare (2 sources) Patient encounter status; Translations: [Encounter for therapeutic drug level monitoring] Episodic Other aftercare (2 sources) Drug therapy finding; Translations: [Other half-way (current) drug therapy] Episodic Other circulatory disease (15 sources) Elevated blood-pressure reading without diagnosis of hypertension; Translations: [Elevated blood-pressure reading, without diagnosis of hypertension] 07-14-2021 Episodic Other connective tissue disease (7 sources) Foot pain; Translations: [Pain in left foot] 04-19-2023 Episodic Other female genital disorders (15 sources) Lesion of endometrium; Translations: [Noninflammatory disorder of uterus, unspecified] 12-13-2018 Episodic Other inflammatory condition of skin (5 sources) Subacute cutaneous lupus erythematosus; Translations: [Subacute cutaneous lupus erythematosus] Onset: 03-26-2024 Chronic Other inflammatory condition of skin (1 source) Subacute cutaneous lupus erythematosus; Translations: [Subacute cutaneous lupus erythematosus] Onset: 03-26-2024 Chronic Other lower respiratory disease (7 sources) Dyspnea; Translations: [Shortness of breath] 04-26-2023 Episodic Other nervous system disorders (15 sources) Numbness of tongue; Translations: [Anesthesia of skin] 08-25-2020 Episodic Other non-traumatic joint disorders (6 sources) Pain in right shoulder; Translations: [Right shoulder pain] Onset: 11-27-2024 11-27-2024 Episodic Other skin disorders (15 sources) Folliculitis; Translations: [Follicular disorder, unspecified] 07-14-2021 Episodic Comment on above: exp management warm compresses Other skin disorders (2 sources) Follicular disorder, unspecified; Translations: [Other specified diseases of hair and hair follicles] Episodic Patricia-; endo-; and myocarditis; cardiomyopathy (except that caused by tuberculosis or sexually transmitted disease) (15 sources) Acute pericarditis; Translations: [Acute pericarditis, unspecified] 11-30-2018 Episodic Regional enteritis and ulcerative colitis (20 sources) Ulcerative colitis; Translations: [Ulcerative colitis, unspecified, without complications] Onset: 04-17-2018 Chronic Residual codes; unclassified (13 sources) Flushing; Translations: [Flushing] 04-28-2022 Episodic Comment on above: recommended [facility] from [facility] for non-hormonal support Residual codes; unclassified (1 source) Flushing; Translations: [Flushing] 04-28-2022 Episodic Spondylosis; intervertebral disc disorders; other back problems (15 sources) Acute thoracic back pain; Translations: [Dorsalgia, unspecified] 05-18-2021 Episodic Systemic lupus erythematosus and connective tissue disorders (15 sources) Lupus erythematosus; Translations: [Systemic lupus erythematosus, unspecified] 08-25-2020 Chronic Comment on above: sees publisher assistant Past or Other Problems Problem Classification Problem Date Documented Date Episodic/Chronic Coronary atherosclerosis and other heart disease (9 sources) Presence of coronary angioplasty implant and graft; Translations: [Percutaneous transluminal coronary angioplasty status] Onset: Episodic Other aftercare (4 sources) Long-term current use of immunosuppressive drug; Translations: [Other half-way (current) drug therapy] Onset: 9 06-12-2018 Episodic Other screening for suspected conditions (not mental disorders or infectious disease) (3 sources) Encounter for screening for malignant neoplasm of cervix; Translations: [Encounter for screening for other suspected endocrine disorder] Onset: 5 Episodic Other skin disorders (4 sources) Eruption; Translations: [Rash and other nonspecific skin eruption] Onset: 9 06-12-2018 Episodic Other upper respiratory infections (1 source) Acute maxillary sinusitis; Translations: [Acute maxillary sinusitis, unspecified] Onset: 6 04-29-2016 Episodic Results Test Name Value Interpretation Reference Range Facility Orthopedic Visit Reporton Orthopedic Visit Report [facility] [address] [place] [id number] OFFICE VISIT Date of Service: 11/27/24 MR#: [id number] Acct: [id number] Name: AMALIA RICHARDSON Rep #: [id number] : 1970 Provider: Dr. Zechariah norton MD Age/Sex: 54/F Location: [facility] Status: Signed Intake Vital Signs 09/27/24 10:30 11/26/24 09:23 Height 5 ft 1 in 5 ft 1 in Weight: 129 lb BMI 24.3 BP 103/70 Blood Pressure Location Lt brachial Position Sitting Respiration 16 Pulse 62 Pulse Source Monitor Intake Visit Reasons: RIGHT SHOULDER Accompanied by: Self Is patient in pain?: Yes Allergies colchicine Allergy (Mild, Verified 11/27/24 09:36) unknown omeprazole Allergy (Verified 11/27/24 09:36) lupus rash Bslriuu-FOR-TbL Reductase Inhibitor (Gnrgpqb-Zxp-Pau Reductase Inhibitor) Allergy (Verified 11/27/24 09:36) fever, abn liver function test Sulfa (Sulfonamide Antibiotics) Allergy (Verified 11/27/24 09:36) Nausea/Vom/Diarrhea tramadol HCl (From [facility]) Adverse Reaction (Verified 11/27/24 09:36) Other Medications ???Medication ???Instructions ???Recorded ???Confirmed ???Type cholecalciferol (vitamin D3) 50 50 mcg PO DAILY 10/01/21 08/19/25 History mcg (2,000 unit) capsule levonorgestrel (Mirena) 1 device intrauterine ONCE 5 11/27/24 History clopidogrel 75 mg tablet 75 mg PO DAILY cardiac #90 tabs 11/27/24 Rx lisinopril 5 mg tablet 5 mg PO BID #180 tabs 08/31/24 Rx aspirin 81 mg tablet,delayed 81 mg PO .M-W-F 09/27/24 11/27/24 History release (Adult Aspirin Regimen) buspirone 5 mg tablet 5 mg PO BID Anxiety 09/27/2411/27 History ezetimibe 10 mg tablet See Rx Instructions .Route 5 11/27/24 Rx .COMPLEX #90 tabs hydroxychloroquine 200 mg tablet 200 mg PO QDAY 09/27/24 11/27/24 H istory magnesium glycinate 100 mg (as 600 mg PO QDAY 09/27/24 11/27/24 H istory glycinate) tablet metoprolol succinate 25 mg 25 mg PO DAILY #90 tabs 09/27/24 0 11/27/24 Rx tablet,extended release 24 hr rosuvastatin 5 mg tablet See Rx Instructions .Route 5 11/27/24 Rx .COMPLEX #36 tabs soy isoflavone 100 mg capsule mg PO HS 09/27/24 11/27/24 History zolpidem 5 mg tablet (Ambien) 5 mg PO QHS #60 tabs 09/27/2411/09 Rx lorazepam 0.5 mg tablet (Ativan) 0.5 mg PO ONCE PRN before mri 1 11/27/24 Rx day #2 tabs PFSH Medical History Right shoulder pain Anxiety History of lupus History of ulcerative colitis History of echocardiogram Headache Alcohol use Non-smoker History of stress test Cardiology follow-up encounter History of hematuria Chest wall asymmetry Lupus Adenomyosis Pericarditis Acute pericarditis Drug-induced lupus erythematosus Hyperlipidemia Ulcerative colitis Elevated LFTs 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 Surgical History Hx of foot surgery ( 04/2023) History of cardiac catheterization Hx of CABG History of colonoscopy with polypectomy (12/05/20) Status post hysteroscopy (11/30/18) H/O coronary artery bypass surgery (05/02/18) History of left heart catheterization (08/29/20) Hx of cholecystectomy History of coronary artery stent placement (12/19/18) Family History Father Heart disease Hypertension Hyperlipidemia Mother Heart disease Bowel disease Respiratory disease Breast cancer Brother Lupus Grandmother Heart disease Diabetes Other grandparents history of heart disease Social History Smoking Status: Never smoker alcohol intake: current details: social substance use type: does not use caffeine: Yes what type of physical activity do you participate in: aerobics frequency: 3-4 times per week seatbelt use: always do you feel safe at home: Yes 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 history: 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 Zechariah Fajardo MD 11/27/24 0810. Part of today???s visit was documented by [ ], acting as scribe. AMALIA RICHARDSON is a 54 year old F here today for R shoulder pain. 3 months. no trauma. workout 3-4 per week. lateral pain. worse at night. using rest. doing some home based PT. was improving. but then got worse again. took some time off from working out but then worse. no cancers Supplemental Info [facility] Imaging Services [address] [place] [address] Shoulder min 2 Views MR#: [id number] Acct: [id number] (more content not included)... Normal [facility] Shoulder min 2 Viewson 11-26 Shoulder min 2 Views [facility] Imaging Services [address] [place] [address] Shoulder min 2 Views MR#: [id number] Acct: [id number] Name: AMALIA RICHARDSON Rep #: [id number] : 1970 F 54 From: Alexia Schwartz PCP: Dr. Kenzie Torrez DO Status: REG CLI Study: Shoulder min 2 Views Date of Exam: 11/26/24 Exam# [id number] Ordering Dr: Zechariah Fajardo MD PROCEDURE: SHOULDER MIN 2 VIEWS 11/26/2024 REASON FOR EXAM: PAIN TECHNIQUE: SHOULDER MIN 2 VIEWS Laterality: Right COMPARISON: None FINDINGS: Bones: There are no fractures or dislocations. A 4 mm lucent lesion is seen in the right radial head with a sclerotic margin. This is most compatible with a benign bony cyst. The visualized right ribs are unremarkable. Joints: Mild arthritic changes are seen involving the acromioclavicular joint. Glenohumeral joint is well preserved. The acromial humeral space is well preserved. The coracoclavicular space is well preserved. Soft tissues: The visualized right lung is clear. Soft tissues are grossly unremarkable. RAD/Shoulder min 2 Views IMPRESSION: The 4 mm lucent lesion in the right radial head has benign features and is most compatible with a benign bony cyst. Mild arthritic changes are seen involving the right acromioclavicular joint. Reading Location: [id number] CC: Dr. Kenzie Torrez DO; Dr. Zechariah Fajardo MD Gravedigger: Signed Normal [facility] Absolute lymphocyte countOrd ered By: HEALTH ASSESSMENT on 11-22-2024 Lymphocytes Auto (Unsp spec) [#/Vol] 1.47 10*3/uL 0.83-4.51 [facility] Absolute neutrophil countOrd ered By: HEALTH ASSESSMENT on 11-22-2024 Neutrophils (Bld) [#/Vol] 3.6 10*3/uL 2.0-7.7 [facility] Absolute nucleated red blood cell countOrdered By: HEALTH ASSESSMENT on 11-22-2024 Nucleated RBC (Bld) [#/Vol] 0.00 10*3/uL 0-5 [facility] Anion gap in Serum or Plasma Ordered By: HEALTH ASSESSMENT on 11-22-2024 Anion gap [Moles/Vol] 10 mmol/L 5-15 Blood [facility] BUN/creatinine ratioOrdered By: HEALTH ASSESSMENT on 11-22-2024 Urea nitrogen/Creatinine [Mass ratio] 22.6 mg/mg High 10-20 [facility] Bilirubin Test strip Ql (U)O rdered By: HEALTH ASSESSMENT on 11-22-2024 Bilirubin Ql (U) Negative Negative [facility] Bilirubin directOrdered By: HEALTH ASSESSMENT on 11-22-2024 Bilirubin.direct [Mass/Vol] 0.20 mg/dL 0.00-0.3 0 [facility] Bilirubin, totalOrdered By: HEALTH ASSESSMENT on 11-22-2024 Bilirubin [Mass/Vol] 0.47 mg/dL 0.00-1.30 [facility] CBC, Employeeon 11-22-2024 Absolute Lymph 1.47 X10 3/uL Normal 0.83-4.51 [facility] Comment on above: Performed By: #### L 100.0200, L400.0100, L500.2900 #### [facility] [address] [place], [address] Absolute Neut 3.6 X10 3/uL Normal 2.0-7.7 [facility] Comment on above: Performed By: #### L 100.0200, L400.0100, L500.2900 #### [facility] [address] [place], [address] Basophils/100 WBC (Bld) 0.7 % Normal 0-1 [facility] Comment on above: Performed By: #### L 100.0200, L400.0100, L500.2900 #### [facility] [address] [place], [address] Eosinophils/100 WBC (Bld) 2.2 % Normal 0-5 [facility] Comment on above: Performed By: #### L 100.0200, L400.0100, L500.2900 #### [facility] [address] [place], [address] Erythrocyte distribution width (RBC) [Ratio] 11.4 % Low 11.6-14.6 [facility] Comment on above: Performed By: #### L 100.0200, L400.0100, L500.2900 #### [facility] [address] [place], [address] Hematocrit (Bld) [Volume fraction] 42.8 % Normal 37-47 [facility] Comment on above: Performed By: #### L 100.0200, L400.0100, L500.2900 #### [facility] [address] [place], [address] Hemoglobin (Bld) [Mass/Vol] 14.5 g/dL Normal 12.0-15. 0 [facility] Comment on above: Performed By: #### L 100.0200, L400.0100, L500.2900 #### [facility] [address] [place], [address] Lymphocytes/100 WBC (Bld) 25.2 % Normal 19-41 [facility] Comment on above: Performed By: #### L 100.0200, L400.0100, L500.2900 #### [facility] [address] [place], [address] MCH (RBC) [Entitic mass] 31.9 pg Normal 27.0-32.0 [facility] Comment on above: Performed By: #### L 100.0200, L400.0100, L500.2900 #### [facility] [address] [place], [address] MCHC (RBC) [Mass/Vol] 33.9 g/dL Normal 32-36 [facility] Comment on above: Performed By: #### L 100.0200, L400.0100, L500.2900 #### [facility] [address] [place], [address] MCV (RBC) [Entitic vol] 94.3 fL Normal 81-99 [facility] Comment on above: Performed By: #### L 100.0200, L400.0100, L500.2900 #### [facility] [address] [place], [address] Monocytes/100 WBC (Bld) 9.9 % Normal 0-10 [facility] Comment on above: Performed By: #### L 100.0200, L400.0100, L500.2900 #### [facility] [address] [place], [address] Neutrophils/100 WBC (Bld) 61.8 % Normal 47-70 [facility] Comment on above: Performed By: #### L 100.0200, L400.0100, L500.2900 #### [facility] [address] [place], [address] NRBC # 0.00 10 3/uL Normal 0-5 [facility] Comment on above: Performed By: #### L 100.0200, L400.0100, L500.2900 #### [facility] [address] [place], [address] Nucleated RBC (Bld) [#/Vol] 0 10*3/uL Normal 0-5 [facility] Comment on above: Performed By: #### L 100.0200, L400.0100, L500.2900 #### [facility] [address] [place], [address] Platelet mean volume (Bld) [Entitic vol] 9.1 fL Normal 6.2-12.0 [facility] Comment on above: Performed By: #### L 100.0200, L400.0100, L500.2900 #### [facility] [address] [place], [address] Platelets (Bld) [#/Vol] 252 10*3/uL Normal 150-450 [facility] Comment on above: Performed By: #### L 100.0200, L400.0100, L500.2900 #### [facility] [address] [place], [address] RBC (Bld) [#/Vol] 4.54 10*6/uL Normal 4.2-5.4 [facility] Comment on above: Performed By: #### L 100.0200, L400.0100, L500.2900 #### [facility] [address] [place], [address] RDW SD 39.7 fl Normal 35.1-43.9 [facility] Comment on above: Performed By: #### L 100.0200, L400.0100, L500.2900 #### [facility] [address] [place], [address] WBC (Bld) [#/Vol] 5.8 10*3/uL Normal 4.4-11.0 [facility] Comment on above: Performed By: #### L 100.0200, L400.0100, L500.2900 #### [facility] [address] [place], [address] Calculated very low density lipoprotein (VLDL) cholesterol measurementOrdered By: HEALTH ASSESSMENT on 11-22-2024 Calculated very low density lipoprotein (VLDL) cholesterol measurement 17 mg/dL 5-40 [facility] Carbon dioxide, total [Moles /volume] in Central venous bloodOrdered By: HEALTH ASSESSMENT on 11-22-2024 CO2 [Moles/Vol] 24.7 mmol/L 21.0-32.0 [facility] Chloride assayOrdered By: HE ALTH ASSESSMENT on 11-22-2024 Chloride [Moles/Vol] 106 mmol/L 98-108 [facility] Employee Profileon CHOL:HDL 2.64 Normal [facility] Comment on above: Performed By: #### L 100.0200, L400.0100, L500.2900 ####[facility] [address] [place], [address] Cholesterol [Mass/Vol] 146 mg/dL Normal <=200 [facility] Comment on above: Result Comment: Chol esterol level, Desirable <200 mg/dL Borderline high cholesterol 200-239 mg/dL High cholesterol >=240 mg/dL Recommendations of the NCEP Adult Treatment Panel for the following risk-cutoff thresholds for the [place] population. Performed By: #### L 100.0200, L400.0100, L500.2900 ####[facility] [address] [place], [address] Cholesterol in HDL [Mass/Vol] 55 mg/dL Normal [facility] Comment on above: Result Comment: Sharifa onal Cholesterol Education Program (NCEP) guidelines: <40 mg/dL: Low HDL-cholesterol (major risk factor for CHD) >= 60 mg/dL: High HDL-cholesterol (negative risk factor for CHD) HDL-cholesterol is affected by a number of factors, e.g. smoking, exercise, hormones, sex and age. Performed By: #### L 100.0200, L400.0100, L500.2900 ####[facility] [address] [place], [address] Cholesterol in LDL [Mass/Vol] 74 mg/dL Normal [facility] Comment on above: Result Comment: Bord kwdaph=745-808 mg/dL Higher Dxcw=027 mg/dL or greater Friedwald Equation for LDL-C Performed By: #### L 100.0200, L400.0100, L500.2900 ####[facility] [address] [place], [address] Cholesterol in VLDL [Mass/Vol] 17 mg/dL Normal 5-40 [facility] Comment on above: Performed By: #### L 100.0200, L400.0100, L500.2900 ####[facility] [address] [place], [address] LDH 166 U/L Normal 84-246 [facility] Comment on above: Performed By: #### L 100.0200, L400.0100, L500.2900 ####[facility] [address] [place], [address] Phosphate [Mass/Vol] 3.3 mg/dL Normal 2.7-4.5 [facility] Comment on above: Performed By: #### L 100.0200, L400.0100, L500.2900 ####[facility] [address] [place], [address] Triglyceride [Mass/Vol] 84 mg/dL Normal [facility] Comment on above: Result Comment: The drugs N-Acetylcysteine and Metamizole may falsely depress this assay. Normal range: <150 mg/dL Borderline High: 150-199 mg/dL High: 200-499 mg/dL Very High: >500 mg/dL Performed By: #### L 100.0200, L400.0100, L500.2900 ####[facility] [address] [place], [address] URIC 5.2 mg/dL Normal 2.6-6.0 [facility] Comment on above: Result Comment: The drugs N-Acetylcysteine and Metamizole may falsely depress this assay. Performed By: #### L 100.0200, L400.0100, L500.2900 ####[facility] [address] [place], [address] Erythrocyte distribution wid th ratioOrdered By: HEALTH ASSESSMENT on 11-22-2024 Erythrocyte distribution width (RBC) [Ratio] 11.4 % Low 11.6-14.6 [facility] Erythrocyte distribution wid th standard deviationOrdered By: HEALTH ASSESSMENT on 11-22-2024 Erythrocyte distribution width (RBC) [Ratio] 39.7 fl 35.1-43.9 [facility] Glomerular filtration rate ( GFR) estimation/1.73 sq m using serum, plasma, or whole bOrdered By: HEALTH ASSESSMENT on 11-22-2024 GFR/1.73 sq M.predicted among non-blacks MDRD (S/P/Bld) [Vol rate/Area] 92 mL/min/{1.73_m2} >60 [facility] Comment on above: mL/min/1.73m2 CKD-EP I Creatinine Equation (2020) Hematocrit Auto (Bld) [Volum e fraction]Ordered By: HEALTH ASSESSMENT on 11-22-2024 Hematocrit (Bld) [Volume fraction] 42.8 % 37-47 [facility] Hemoglobin measurementOrdere d By: HEALTH ASSESSMENT on 11-22-2024 Hemoglobin (Bld) [Mass/Vol] 14.5 g/dL 12.0-15. 0 [facility] Ketones Test strip Ql (U)Ord ered By: HEALTH ASSESSMENT on 11-22-2024 Ketones Ql (U) Negative Negative [facility] LDL calc ser/plasOrdered By: HEALTH ASSESSMENT on 11-22-2024 Cholesterol in LDL [Mass/Vol] 74 mg/dL [facility] Comment on above: Kvtejuvgic=081-307 m g/dL & Higher Qkod=027 mg/dL or greaterFriedwald Equation for LDL-C Laboratory - Chemistry and C hemistry - challengeOrdered By: HEALTH ASSESSMENT on 11-22-2024 AST [Catalytic activity/Vol] 25 U/L <32 [facility] Lactate dehydrogenase (LDH) measurementOrdered By: HEALTH ASSESSMENT on 11-22-2024 LDH [Catalytic activity/Vol] 166 U/L 84-246 [facility] MCV (mean corpuscular volume ) determinationOrdered By: HEALTH ASSESSMENT on 11-22-2024 MCV (RBC) [Entitic vol] 94.3 fL 81-99 [facility] Mean corpuscular hemoglobin (MCH) determinationOrdered By: HEALTH ASSESSMENT on 11-22-2024 MCH (RBC) [Entitic mass] 31.9 pg 27.0-32.0 [facility] Mean corpuscular hemoglobin concentration (MCHC) determinationOrdered By: HEALTH ASSESSMENT on 11-22-2024 MCHC (RBC) [Mass/Vol] 33.9 g/dL 32-36 [facility] [place] Mean platelet volume determi nationOrdered By: HEALTH ASSESSMENT on 11-22-2024 Platelet mean volume (Bld) [Entitic vol] 9.1 fL 6.2-12.0 [facility] Neutrophil percentageOrdered By: HEALTH ASSESSMENT on 11-22-2024 Neutrophils/100 WBC (Bld) 61.8 % 47-70 [facility] Nitrite Test strip Ql (U)Ord ered By: HEALTH ASSESSMENT on 11-22-2024 Nitrite Ql (U) Negative Negative [facility] Nucleated red blood cell per centageOrdered By: HEALTH ASSESSMENT on 11-22-2024 Nucleated RBC/100 WBC (Bld) [Ratio] 0 % 0-5 [facility] Platelet countOrdered By: HE ALTH ASSESSMENT on 11-22-2024 Platelets (Bld) [#/Vol] 252 10*3/uL 150-450 [facility] Potassium measurement (mass/ volume)Ordered By: HEALTH ASSESSMENT on 11-22-2024 Potassium (Unsp spec) [Mass/Vol] 4.3 mmol/L 3.3-5.1 [facility] Protein Test strip Ql (U)Ord ered By: HEALTH ASSESSMENT on 11-22-2024 Protein Ql (U) 15 mg/dl High Negative [facility] RBC Auto (Bld) [#/Vol]Ordere d By: HEALTH ASSESSMENT on 11-22-2024 RBC (Bld) [#/Vol] 4.54 10*6/uL 4.2-5.4 [facility] Screening total cholesterol/ high density lipoprotein (HDL) cholesterol ratioOrdered By: HEALTH ASSESSMENT on 11-22-2024 Cholesterol.total/Cholester ol in HDL [Mass ratio] 2.64 {ratio} [facility] Serum creatinine measurement (mass/volume)Ordered By: HEALTH ASSESSMENT on 11-22-2024 Creatinine [Mass/Vol] 0.76 mg/dL 0.70-1.20 [facility] [place] Serum globulin measurementOr dered By: HEALTH ASSESSMENT on 11-22-2024 Globulin (S) [Mass/Vol] 2.2 g/dL 2.2-4.2 [facility] Serum glucose measurement (m ass/volume)Ordered By: HEALTH ASSESSMENT on 11-22-2024 Glucose [Mass/Vol] 100 mg/dL High 70-99 [facility] Serum or plasma alanine cruz otransferase (ALT) measurementOrdered By: HEALTH ASSESSMENT on 11-22-2024 ALT [Catalytic activity/Vol] 20 U/L <35 [facility] Serum or plasma albumin nestor urement (mass/volume)Ordered By: HEALTH ASSESSMENT on 11-22-2024 Albumin [Mass/Vol] 4.5 g/dL 3.5-5.0 [facility] Serum or plasma albumin/glob ulin mass ratioOrdered By: HEALTH ASSESSMENT on 11-22-2024 Albumin/Globulin [Mass ratio] 2.1 {ratio} 0.9-2.4 [facility] Serum or plasma alkaline koko sphatase measurementOrdered By: HEALTH ASSESSMENT on 11-22-2024 ALP [Catalytic activity/Vol] 83 U/L 35-104 [facility] Serum or plasma calcium nestor urement (mass/volume)Ordered By: HEALTH ASSESSMENT on 11-22-2024 Calcium [Mass/Vol] 9.6 mg/dL 7.6-11.0 [facility] Serum or plasma cholesterol in HDL measurement (mass/volume)Ordered By: HEALTH ASSESSMENT on 11-22-2024 Cholesterol in HDL [Mass/Vol] 55 mg/dL >40 [facility] Comment on above: National Cholesterol Education Program (NCEP) guidelines:<40 mg/dL: Low HDL-cholesterol (major risk factor for CHD)>= 60 mg/dL: High HDL-cholesterol (negative risk factor for CHD)HDL-cholesterol is affected by a number of factors, e.g. smoking, exercise, hormones, sex and age. Serum or plasma cholesterol measurement (mass/volume)Ordered By: HEALTH ASSESSMENT on 11-22-2024 Cholesterol [Mass/Vol] 146 mg/dL <201 [facility] Comment on above: Cholesterol level, D esirable <200 mg/dLBorderline high cholesterol 200-239 mg/dLHigh cholesterol >=240 mg/dLRecommendations of the NCEP Adult Treatment Panel for the following risk-cutoff thresholds for the [place] Citizen [place] population. Serum or plasma urea nitroge n measurement (mass/volume)Ordered By: HEALTH ASSESSMENT on 11-22-2024 Urea nitrogen [Mass/Vol] 17 mg/dL 4-19 [facility] Serum or plasma uric acid me asurement (mass/volume)Ordered By: HEALTH ASSESSMENT on 11-22-2024 Urate [Mass/Vol] 5.2 mg/dL 2.6-6.0 [facility] Comment on above: The drugs N-Acetylcy steine and Metamizole may falsely depress this assay. Sodium levelOrdered By: HEAL TH ASSESSMENT on 11-22-2024 Sodium [Moles/Vol] 141 mmol/L 133-145 [facility] Total proteinOrdered By: [facility] ASSESSMENT on 11-22-2024 Protein [Mass/Vol] 6.6 g/dL 5.9-8.4 [facility] Triglycerides measurementOrd ered By: HEALTH ASSESSMENT on 11-22-2024 Triglyceride [Mass/Vol] 84 mg/dL <199 [facility] Comment on above: The drugs N-Acetylcy steine and Metamizole may falsely depress this assay. Normal range: <150 mg/dLBorderline High: 150-199 mg/dLHigh: 200-499 mg/dLVery High: >500 mg/dL Urinalysis, Employeeon 11-22 BILIRUBIN URINE Negative Normal Negative [facility] Comment on above: Order Comment: Urine , Random Performed By: #### L 100.0200, L400.0100, L500.2900 ####[facility] [address] [place], [address] Clarity (U) Clear Normal Clear [facility] Comment on above: Order Comment: Urine , Random Performed By: #### L 100.0200, L400.0100, L500.2900 ####[facility] [address] [place], [address] Color (U) Yellow Normal Yellow [facility] Comment on above: Order Comment: Urine , Random Performed By: #### L 100.0200, L400.0100, L500.2900 ####[facility] [address] [place], [address] GLUCOSE, UR Normal Normal Normal [facility] Comment on above: Order Comment: Urine , Random Performed By: #### L 100.0200, L400.0100, L500.2900 ####[facility] [address] [place], [address] KETONE UR Negative Normal Negative [facility] Comment on above: Order Comment: Urine , Random Performed By: #### L 100.0200, L400.0100, L500.2900 ####[facility] [address] [place], [address] LEUK ESTERASE Negative Normal Negative [facility] Comment on above: Order Comment: Urine , Random Performed By: #### L 100.0200, L400.0100, L500.2900 ####[facility] [address] [place], [address] Nitrite Ql (U) Negative Normal Negative [facility] Comment on above: Order Comment: Urine , Random Performed By: #### L 100.0200, L400.0100, L500.2900 ####[facility] [address] [place], [address] OCCULT BLOOD-UR 10 /ul Abnormal Negative [facility] Comment on above: Order Comment: Urine , Random Performed By: #### L 100.0200, L400.0100, L500.2900 ####[facility] [address] [place], [address] pH UR 6.0 Normal 5.0 - 8.0 [facility] Comment on above: Order Comment: Urine , Random Performed By: #### L 100.0200, L400.0100, L500.2900 ####[facility] [address] [place], [address] PROT DIPSTX 15 mg/dl Abnormal Negative [facility] Comment on above: Order Comment: Urine , Random Performed By: #### L 100.0200, L400.0100, L500.2900 ####[facility] [address] [place], [address] SP.GR. DIPSTX 1.020 Normal 1.002-1.03 0 [facility] Comment on above: Order Comment: Urine , Random Performed By: #### L 100.0200, L400.0100, L500.2900 ####[facility] [address] [place], [address] UROBILI Normal Normal Normal [facility] Comment on above: Order Comment: Urine , Random Performed By: #### L 100.0200, L400.0100, L500.2900 ####[facility] [address] [place], [address] Urine clarityOrdered By: [facility] ASSESSMENT on 11-22-2024 Clarity (U) Clear Clear [facility] Urine color determinationOrd ered By: HEALTH ASSESSMENT on 11-22-2024 Color (U) Yellow Yellow [facility] Urine glucose detectionOrder ed By: HEALTH ASSESSMENT on 11-22-2024 Glucose Ql (U) Normal mg/dl Normal [facility] Urine leukocyte esterase det ection by dipstickOrdered By: HEALTH ASSESSMENT on 11-22-2024 Leukocyte esterase Test strip Ql (U) Negative Negative [facility] Urine pHOrdered By: HEALTH A SSESSMENT on 11-22-2024 pH (U) 6.0 [pH] 5.0 - 8.0 [facility] Urine specific gravity measu rementOrdered By: HEALTH ASSESSMENT on 11-22-2024 Specific gravity (U) [Rel density] 1.020 1.002-1.03 0 [facility] Urine urobilinogen measureme ntOrdered By: HEALTH ASSESSMENT on 11-22-2024 Urobilinogen Ql (U) Normal mg/dl Normal [facility] White blood cell (WBC) count Ordered By: HEALTH ASSESSMENT on 11-22-2024 WBC (Bld) [#/Vol] 5.8 10*3/uL 4.4-11.0 [facility] Cardiology Visit Reporton Cardiology Visit Report [facility] [address] [place], [place] [address] OFFICE VISIT Date of Service: 09/27/24 MR#: [id number] Acct: [id number] Name: AMALIA RICHARDSON Rep #: [id number] : 1970 Provider: Dr. 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 Postoperatively it appears that she developed pericarditis and needed to be hospitalized here for a few days. She had initially been started on colchicine but she developed diarrhea from this and she was placed on nonsteroidal anti-inflammatory agents and has improved with that. Her last echocardiogram demonstrated preserved ejection fraction there was no evidence of pericardial effusion. In December of 2018 she underwent a cardiac catheterization which demonstrated the persistent stenosis in the proximal left anterior descending artery, the left internal mammary artery to the left anterior descending artery was patent but proximal to the anastomotic site was an area of approximately 80% stenosis. The vessel then retrogradely filled a larger limb of the left anterior descending artery. The circumflex artery also had an new moderate proximal irregular 40 to 50% stenotic lesion in the right coronary artery was free of any significant stenosis. She underwent angioplasty and stenting of the proximal left anterior descending artery. She has since undergone a stress test in March 2019 which was normal. She had presented in August of 2020 with chest discomfort and underwent cardiac catheterization which demonstrated patent proximal and mid LAD stents, patent BEST to the septal distal to the 70% stenosis, RCA with no significant disease and 40% left circumflex artery stenosis. Medical therapy was recommended she was put on lisinopril and has done remarkably well. She called me a few weeks ago complaining of significant vasomotor symptoms and insomnia, hot flashes which were beginning to impact her. She was advised to take some soy and magnesium and she says that her symptoms have improved remarkably. She does still have some mild insomnia and anxiety. She has continued to do remarkably well and denies any chest pain or shortness with the paroxysmal nocturnal dyspnea pedal edema. 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 Criminal Investigative Agent Required: No Accompanied by: Self Is patient in pain?: No Allergies colchicine Allergy (Mild, Verified 09/27/24 10:34) unknown omeprazole Allergy (Verified 09/27/24 10:34) lupus rash Ixsfikl-FRL-JbN Reductase Inhibitor (Oglfrse-Ogm-Gci Reductase Inhibitor) Allergy (Verified 09/27/24 10:34) fever, abn liver function test Sulfa (Sulfonamide Antibiotics) Allergy (Verified 09/27/24 10:34) Nausea/Vom/Diarrhea tramadol HCl (From [facility]) Adverse Reaction (Verified 09/27/24 10:34) Other Medications ???Medication ???Instructions ???Recorded ???Confirmed ???Type cholecalciferol (vitamin D3) 50 50 mcg PO DAILY 01/09/21 09/27/24 History mcg (2,000 unit) capsule levonorgestrel (Mirena) 1 device intrauterine ONCE 5 09/27/24 History clopidogrel 75 mg tablet 75 mg PO DAILY cardiac #90 tabs 09/27/24 Rx lisinopril 5 mg tablet 5 mg PO BID #180 tabs 08/31/24 Rx aspirin 81 mg tablet,delayed 81 mg PO .M-W-F 09/27/24 09/27/24 History release (Adult Aspirin Regimen) buspirone 5 mg tablet 5 mg PO BID Anxiety 09/27/2409/27 History ezetimibe 10 mg tablet See Rx Instructions .Route 5 09/27/24 Rx .COMPLEX #90 tabs hydroxychloroquine 200 mg tablet 200 mg PO QDAY 09/27/24 09/27/24 H istory magnesium glycinate 100 mg (as 600 mg PO QDAY 09/27/24 09/27/24 H istory glycinate) tablet metoprolol succinate 25 mg 25 mg PO DAILY #90 tabs 09/27/24 0 09/27/24 Rx tablet,extended release 24 hr rosuvastatin 5 mg tablet See Rx Instructions .Route 5 09/27/24 Rx .COMPLEX #36 tabs soy isoflavone 100 mg capsule mg PO HS 09/27/24 09/27/24 History zolpidem 5 mg tablet (Ambien) 5 mg PO QHS #60 tabs 09/27/2409/09 Rx PFSH Medical History Anxiety History of lupus History of ulcerative colitis History of ech (more content not included)... Normal [facility] PAP IG HPV APTIMA 16/18,45on 07-23-2024 ADEQ Comment Normal . [facility] Comment on above: Order Comment: Speci men Comment: [id number] Specimen Comment: Source.............Cervix;Endocervix Specimen Comment: No. of containers..01 ThinPrep Vial Result Comment: Sati sfactory for evaluation. Endocervical and/or squamous metaplastic cells (endocervical component) are present. Performed By: #### L 7400.0280 #### [facility] [address] [place], [place], [address] COMM . Normal . [facility] Comment on above: Order Comment: Speci men Comment: [id number] Specimen Comment: Source.............Cervix;Endocervix Specimen Comment: No. of containers..01 ThinPrep Vial Performed By: #### L 7400.0280 #### [facility] [address] [place], [place], [address] COMMENT Comment Normal . [facility] Comment on above: Order Comment: Speci men Comment: [id number] Specimen Comment: Source.............Cervix;Endocervix Specimen Comment: No. of containers..01 ThinPrep Vial Result Comment: This liquid based ThinPrep(R) pap test was screened with the use of an image guided system. Performed By: #### L 7400.0280 #### [facility] [address] [place], [place], [address] DIAG Comment Normal . [facility] Comment on above: Order Comment: Speci men Comment: [id number] Specimen Comment: Source.............Cervix;Endocervix Specimen Comment: No. of containers..01 ThinPrep Vial Result Comment: NEGA TIVE FOR INTRAEPITHELIAL LESION OR MALIGNANCY. Performed By: #### L 7400.0280 #### [facility] [address] [place], [place], [address] HPV APTIMA, HR Negative Normal Negative [facility] Comment on above: Order Comment: Speci men Comment: [id number] Specimen Comment: Source.............Cervix;Endocervix Specimen Comment: No. of containers..01 ThinPrep Vial Result Comment: This nucleic acid amplification test detects fourteen high- risk HPV types (16,18,31,33,35,39,45,51,52,56,58,59,66,68) without differentiation. Performed By: #### L 7400.0280 #### [facility] [address] [place], [address] HPV Tamy Rfx Comment Normal . [facility] Comment on above: Order Comment: Speci men Comment: [id number] Specimen Comment: Source.............Cervix;Endocervix Specimen Comment: No. of containers..01 ThinPrep Vial Result Comment: Crit eria not met, HPV Genotype not performed. Performed at: - [address] [id number] County Assessor: Sharda Gray MD, Phone: [phone] Performed at: = - [address] [id number] County Assessor: Sharda Gray MD, Phone: [phone] Performed By: #### L 7400.0280 #### [facility] [address] [place], [place], [address] PAPSMR Comment Normal . [facility] Comment on above: Order Comment: Speci men Comment: [id number] Specimen Comment: Source.............Cervix;Endocervix Specimen Comment: No. of containers..01 ThinPrep Vial Result Comment: The Pap smear is a screening test designed to aid in the detection of premalignant and malignant conditions of the uterine cervix. It is not a diagnostic procedure and should not be used as the sole means of detecting cervical cancer. Both false-positive and false-negative reports do occur. Performed By: #### L 7400.0280 #### [facility] [address] [place], [place], [address] PERFORM Comment Normal . [facility] Comment on above: Order Comment: Speci men Comment: [id number] Specimen Comment: Source.............Cervix;Endocervix Specimen Comment: No. of containers..01 ThinPrep Vial Result Comment: Alia Mcgill, Journeyman Patternmaker (ASCP) Performed By: #### L 7400.0280 #### [facility] [address] [place], [place], [address] Surgery Visit Reporton 07-19 Surgery Visit Report [facility] [address] [place], [place] [address] OFFICE VISIT Date of Service: 07/19/24 MR#: [id number] Acct: [id number] Name: AMALIA RICHARDSON Rep #: [id number] : 1970 Provider: Dr. Nancy valladares MD Age/Sex: 54/F Location: [facility] Status: Signed Intake Vital Signs 07/17/24 14:39 07/19/24 12:59 Height 5 ft 1 in 5 ft 1 in Weight: 127 lb 8 oz 128 lb BMI 24.0 24.1 BP 122/79 H 102/71 Blood Pressure Location Rt brachial Position Sitting Respiration 17 Pulse 75 Pulse Source Monitor Pulse Oximetry (%) 97 Oxygen Delivery Method room air Intake Visit Reasons: BREAST CONSULT Chief Complaint: breast consult Is patient in pain?: No Allergies colchicine Allergy (Mild, Verified 07/19/24 13:01) unknown omeprazole Allergy (Verified 07/19/24 13:01) lupus rash Ggxzwwi-ZFV-HqN Reductase Inhibitor (Ayzqwaa-Xrl-Rpe Reductase Inhibitor) Allergy (Verified 07/19/24 13:01) fever, abn liver function test Sulfa (Sulfonamide Antibiotics) Allergy (Verified 07/19/24 13:01) Nausea/Vom/Diarrhea tramadol HCl (From [facility]) Adverse Reaction (Verified 07/19/24 13:01) Other Medications ???Medication ???Instructions ???Recorded ???Confirmed ???Type aspirin 81 mg tablet,delayed 81 mg PO DAILY #90 tabs 12/23/17 0 07/19/24 Rx release (Adult Aspirin Regimen) cholecalciferol (vitamin D3) 50 50 mcg PO DAILY 01/09/21 07/19/24 History mcg (2,000 unit) capsule clopidogrel 75 mg tablet 75 mg PO DAILY cardiac #90 tabs 07/19/24 Rx lisinopril 5 mg tablet 5 mg PO BID #180 tabs 09/06/2302/02 Rx ezetimibe 10 mg tablet See Rx Instructions .Route 4 07/19/24 Rx .COMPLEX #90 tabs rosuvastatin 5 mg tablet See Rx Instructions .Route 4 07/19/24 Rx .COMPLEX #36 tabs metoprolol succinate 25 mg 25 mg PO DAILY #90 tabs 01/19/24 0 07/19/24 Rx tablet,extended release 24 hr hydroxychloroquine 200 mg tablet mg PO 07/17/24 07/19/24 History levonorgestrel (Mirena) 1 device intrauterine ONCE 5 07/19/24 History PFSH Medical History Anxiety History of lupus History of ulcerative colitis History of echocardiogram Headache Alcohol use Non-smoker History of stress test Cardiology follow-up encounter History of hematuria Chest wall asymmetry Lupus Adenomyosis Pericarditis Acute pericarditis Drug-induced lupus erythematosus Hyperlipidemia Ulcerative colitis Elevated LFTs 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 Surgical History Hx of foot surgery ( 04/2023) History of cardiac catheterization Hx of CABG History of colonoscopy with polypectomy (12/05/20) Status post hysteroscopy (11/30/18) H/O coronary artery bypass surgery (05/02/18) History of left heart catheterization (08/29/20) Hx of cholecystectomy History of coronary artery stent placement (12/19/18) Family History Father Heart disease Hypertension Hyperlipidemia Mother Heart disease Bowel disease Respiratory disease Breast cancer Brother Lupus Grandmother Heart disease Diabetes Other grandparents history of heart disease Social History Smoking Status: Never smoker alcohol intake: current details: social substance use type: does not use caffeine: Yes what type of physical activity do you participate in: aerobics frequency: 3-4 times per week seatbelt use: always do you feel safe at home: Yes 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 history: Arturo Pennington RN 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 Patient was seen by her LABOR RELATIONS MANAGER recommended an ultrasound of the left breast. Patient had previous ultrasound of the right breast and mammography in January 2024. Patient denies feeling anything in the left breast as she does have fibrocystic breast. Age at menses 13, age or of first child 26, F family history of breast cancer in mother, and no previous breast biopsies. ROS General General: No weight change, appetite, fatigue, colon cancer or breast cancer HEENT HEENT: No difficulty swallowing, eye injury, eye surgery, swollen glands or hoarseness Endo Endocrine: No thyroid disease, diabetes mellitus, thyroid cancer, Hair loss, heat intolerance or cold intolerance Skin Skin: No rash or changing moles Breast Breast: No left breast lump, right breast lump, nipple discharge, breast pain, abnormal mammogram, abnormal US or breast enlargement Musc Musculoskeletal: No back problems, arthritis, rheumatoid arthritis, gout or joint pain Cardio Cardiovascular: Yes hea (more content not included)... Normal [facility] Cervical or vaginal specimen microscopic examination by liquid based cytology (reportOrdered By: Margaret Frederick on 07-17-2024 Cytology report Cyto stain.thin prep Doc (Cvx/Vag) Comment . [facility] Comment on above: Criteria not met, HP V Genotype not performed.Performed at: [facility] - [facility] [address] [id number] Director: Sharda Gray MD, Phone: [phone] at: =G - [facility] [address] [facility] [place], [place] [id number] Director: Sharda Gray MD, Phone: [phone] Cervical or vagninal specime n microscopic examination by cytology stain (reported asOrdered By: Margaret Frederick on 07-17-2024 Cytology report Cyto stain Doc (Cvx/Vag) Comment . [facility] Comment on above: The Pap smear is a s creening test designed to aid in thedetection of premalignant and malignant conditions of theuterine cervix. It is not a diagnostic procedure andshould not be used as the sole means of detecting cervicalcancer. Both false-positive and false-negative reports dooccur. Detection in cervical specim en of any of human papilloma virus (HPV) 16, 18, 31, 33,Ordered By: Margaret Frederick on 07-17-2024 HPV 16+18+31+33+35+39+45+51+52+ 56+58+59+66+68 DNA Probe+sig amp Ql (Cvx) Negative Negative [facility] Comment on above: This nucleic acid am plification test detects fourteen high-risk HPV types (16,18,31,33,35,39,45,51,52,56,58,59,66,68)without differentiation. Laboratory - CytologyOrdered By: Margaret Frederick on 07-17-2024 Hand Rounder Cyto stain Nom (Cvx/Vag) [ID] Comment . [facility] Comment on above: Alia Mcgill, Cytotec hnologist (ASCP) Laboratory - Miscellaneous t estsOrdered By: Margaret Frederick on 07-17-2024 Service comment (Unsp spec) [Interp] . . [facility] No Panel InformationOrdered By: Margaret Frederick on 07-17-2024 Pap Smear Specimen Adequacy Comment . [facility] Comment on above: Satisfactory for gabi luation. Endocervical and/or squamous metaplasticcells (endocervical component) are present. Web Press Operator Office Visit Reporton 07-17-2024 Web Press Operator Office Visit Report [facility] [address], [address] [address] [place] [address] OFFICE VISIT Date of Service: 07/17/24 MR#: [id number] Acct: [id number] Name: AMALIA RICHARDSON Rep #: [id number] 30 : 1970 Provider: LIDIA Hensley Age/Sex: 54/F Location[place] [facility] [place] [facility] [place] Status: Signed Intake Vital Signs 03/28/24 06:37 07/17/24 14:39 Height 5 ft 1 in 5 ft 1 in Weight: 124 lb 8 oz 127 lb 8 oz BMI 23.5 24.0 BP 118/58 L 122/79 H Blood Pressure Location Lt brachial Position Sitting Respiration 15 Pulse 63 Pulse Source NIBP Temp 98.2 F Pulse Oximetry (%) 97 Oxygen Delivery Method room air Intake Visit Reasons: 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) Chief Complaint: Annual Criminal Investigative Agent Required: No Is patient in pain?: No Allergies colchicine Allergy (Mild, Verified 07/17/24 14:42) unknown omeprazole Allergy (Verified 07/17/24 14:42) lupus rash Nsjpoid-HJA-StP Reductase Inhibitor (Bdzjgzy-Jhg-Dym Reductase Inhibitor) Allergy (Verified 07/17/24 14:42) fever, abn liver function test Sulfa (Sulfonamide Antibiotics) Allergy (Verified 07/17/24 14:42) Nausea/Vom/Diarrhea tramadol HCl (From Ultram) Adverse Reaction (Verified 07/17/24 14:42) Other Medications ???Medication ???Instructions ???Recorded ???Confirmed ???Type aspirin 81 mg tablet,delayed 81 mg PO DAILY #90 tabs 12/23/17 0 07/17/24 Rx release (Adult Aspirin Regimen) cholecalciferol (vitamin D3) 50 50 mcg PO DAILY 01/09/21 07/17/24 History mcg (2,000 unit) capsule clopidogrel 75 mg tablet 75 mg PO DAILY cardiac #90 tabs 07/17/24 Rx lisinopril 5 mg tablet 5 mg PO BID #180 tabs 09/06/2312/03 Rx ezetimibe 10 mg tablet See Rx Instructions .Route 4 07/17/24 Rx .COMPLEX #90 tabs rosuvastatin 5 mg tablet See Rx Instructions .Route 4 07/17/24 Rx .COMPLEX #36 tabs metoprolol succinate 25 mg 25 mg PO DAILY #90 tabs 01/19/24 0 07/17/24 Rx tablet,extended release 24 hr hydroxychloroquine 200 mg tablet mg PO 07/17/24 07/17/24 History levonorgestrel (Mirena) 1 device intrauterine ONCE 5 07/17/24 History Is last menstrual period known: No Post menopausal: Yes Patient : No : No Control Method: Mirena 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 Surgical History Hx of foot surgery ( 04/2023) History of cardiac catheterization Hx of CABG History of colonoscopy with polypectomy (12/05/20) Status post hysteroscopy (11/30/18) H/O coronary artery bypass surgery (05/02/18) History of left heart catheterization (08/29/20) Hx of cholecystectomy History of coronary artery stent placement (12/19/18) Family History Father Heart disease Hypertension Hyperlipidemia Mother Heart disease Bowel disease Respiratory disease Breast cancer Brother Lupus Grandmother Heart disease Diabetes Other grandparents history of heart disease Social History Smoking Status: Never smoker alcohol intake: current details: social substance use type: does not use caffeine: Yes what type of physical activity do you participate in: aerobics frequency: 3-4 times per week seatbelt use: always do you feel safe at home: Yes 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 history: Arturo Pennington RN clinical assistant kitchen manager [facility] [place] History 2 Elective abortions Hx Para 3 Spontaneous abortions Hx # Term Pregnancies Ectopic pregnancies Hx # Pregnancies Multiple births # of living children Past Pregnancies Del. Date Name GA/Weeks Outcome Route Bth Weight Infant Gen Labor Lgth Anesthesia Del Locatn Provider TANNER Unknown 1996 Payton Urbano Unknown 2000 [address] [facility] Encounter for routine gynecological examination Details: AMALIA RICHARDSON is a 54 year old who presents for annual exam. She reports she is dealing with hot flashes, insomnia. She used to take benedryl to help sleep; she has stopped taking this recently. Continues with mirena IUD; doing well with this. Last PAP: 06/15/23 -Unsatisfactory for Eval. History of abnormal PAP:years ago Last mammogram: 02/01/24, Breast US 02/02/24 Cysts on Right Breast History of abnormal mammogram: Yes Colon cancer screenin01/26/2023-Norm (more content not included)... Normal [facility] T4 Free Directon 07-17-2024 T4 FREE DIRECT 1.30 ng/dL Normal 0.76-1.46 [facility] Comment on above: Performed By: #### L 506.0400, [id number] #### [facility] [address] [place], [place], [address] T4 freeOrdered By: Margaret cartwright on 07-17-2024 Free T4 [Mass/Vol] 1.30 ng/dL 0.76-1.46 [facility] TSH DL <= 0.005 mIU/L QnOrde red By: Margaret Frederick on 07-17-2024 Thyroid Stimulating Hormone (TSH) 3.310 uIU/mL 0.300-4.20 0 [facility] TSH Qn 3.310 uIU/mL 0.300-4.20 0 [facility] Thyroid Stim Hormone (TSH)on 07-17-2024 TSH 3.310 uIU/mL Normal 0.300-4.20 0 [facility] Comment on above: Performed By: #### L 506.0400, [id number] #### [facility] [address] [place], [place], [address] Urgent Care Visit Reporton 1 05-29-2023 Urgent Care Visit Report [facility] [address], [address] [place] [address] OFFICE VISIT Date of Service: 03/28/24 MR#: [id number] Acct: [id number] Name: AMALIA RICHARDSON Rep #: [id number] 30 : 1970 Provider: MARY ANN Butts Age/Sex: 54/F Location: [facility] Status: Signed Intake Vital Signs 01/31/24 14:08 03/28/24 06:37 Height 5 ft 1 in 5 ft 1 in Weight: 124 lb 8 oz BMI 23.5 BP 118/58 L Blood Pressure Location Lt brachial Position Sitting Respiration 15 Pulse 63 Pulse Source NIBP Temp 98.2 F Temp Source Oral Pulse Oximetry (%) 97 Oxygen Delivery Method room air Intake Visit Reasons: EARS CLOGGED/ PAIN Chief Complaint: ear pain, MORALES, eye pain Criminal Investigative Agent Required: No Is patient in pain?: Yes Allergies colchicine Allergy (Mild, Verified 03/28/24 06:38) unknown omeprazole Allergy (Verified 03/28/24 06:38) lupus rash Hhmammg-SCF-KhE Reductase Inhibitor (Erzjcwx-Spc-Vvh Reductase Inhibitor) Allergy (Verified 03/28/24 06:38) fever, abn liver function test Sulfa (Sulfonamide Antibiotics) Allergy (Verified 03/28/24 06:38) Nausea/Vom/Diarrhea tramadol HCl (From [facility]) Adverse Reaction (Verified 03/28/24 06:38) Other Medications ???Medication ???Instructions ???Recorded ???Confirmed ???Type aspirin 81 mg tablet,delayed 81 mg PO DAILY #90 tabs 12/23/17 03/28/24 Rx release (Adult Aspirin Regimen) cholecalciferol (vitamin D3) 50 50 mcg PO DAILY 01/09/21 03/28/24 History mcg (2,000 unit) capsule levonorgestrel (Mirena) 1 device intrauterine ONCE 06/15/23 01/31/24 History clopidogrel 75 mg tablet 75 mg PO DAILY cardiac #90 tabs 08/05/23 03/28/24 Rx lisinopril 5 mg tablet 5 mg PO BID #180 tabs 09/06/23 03/28/24 Rx ezetimibe 10 mg tablet See Rx Instructions .Route 10/27/23 03/28/24 Rx .COMPLEX #90 tabs rosuvastatin 5 mg tablet See Rx Instructions .Route 10/27/23 03/28/24 Rx .COMPLEX #36 tabs folic acid 1 mg tablet 1 mg PO DAILY #90 tabs 12/16/23 03/28/24 Rx metoprolol succinate 25 mg 25 mg PO DAILY #90 tabs 01/19/24 03/28/24 Rx tablet,extended release 24 hr amoxicillin 500 mg tablet 500 mg PO TID #30 tabs 03/28/24 03/28/24 Rx Is last menstrual period known: No Post menopausal: Yes Patient : No Have you fallen in the past year?: No Nurse's Note: ear pain, MORALES, eye pain x 3 days. recent viral illness which has resolved. pt declines viral testing. 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 Surgical History Hx of foot surgery ( 04/2023) History of cardiac catheterization Hx of CABG History of colonoscopy with polypectomy (12/05/20) Status post hysteroscopy (11/30/18) H/O coronary artery bypass surgery (05/02/18) History of left heart catheterization (08/29/20) Hx of cholecystectomy History of coronary artery stent placement (12/19/18) Family History Father Heart disease Hypertension Hyperlipidemia Mother Heart disease Bowel disease Respiratory disease Breast cancer Brother Lupus Grandmother Heart disease Diabetes Other grandparents history of heart disease Social History Smoking Status: Never smoker alcohol intake: current details: social substance use type: does not use caffeine: Yes what type of physical activity do you participate in: aerobics frequency: 3-4 times per week seatbelt use: always do you feel safe at home: Yes 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 history: 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 No complaints of fever, chills, myalgias, fatigue, runny nose, or nausea/vomiting/diarr hea. Erto-owg-rusauqa Debrox drops tried to left ear without improvement 3 days ago patient so states. No close contacts with similar complaints. No other associated symptoms and no other alleviating/aggravati ng factors. ROS Const (more content not included)... Normal [facility] C3,C4on 03-26-2024 Complement C3 [Mass/Vol] 107 mg/dL 87 - 200 mg/dL [facility] Complement C4 [Mass/Vol] 20 mg/dL 18 - 52 mg/dL [facility] Interpretation and review of laboratory results Normal [facility] C3 107 mg/dL Normal 87-200 [facility] Comment on above: Performed By: #### R ANA Clark, COMP #### [facility] (DEFAULT) [address] [address] C4 20 mg/dL Normal 18-52 [facility] Comment on above: Performed By: #### R FMENDYN, COMP #### [facility] (DEFAULT) [address] [address] CBC AND ELECTRONIC DIFFon Basophils (Bld) [#/Vol] 0.04 10*3/uL Normal 0.00-0.15 [facility] Comment on above: Performed By: #### L [id number] #### [facility] (DEFAULT) [address] [address] Basophils/100 WBC (Bld) 0.9 % Normal O [facility] Comment on above: Performed By: #### L [id number] #### [facility] (DEFAULT) [address] [place] [address] DIFF STATUS Electronic Differential Normal [facility] Comment on above: Performed By: #### L [id number] #### [facility] (DEFAULT) [address] [place] [address] Eosinophils (Bld) [#/Vol] 0.11 10*3/uL Normal 0.00-0.4 2 [facility] Comment on above: Performed By: #### L [id number] #### [facility] (DEFAULT) [address] [place] [address] Eosinophils/100 WBC (Bld) 2.4 % Normal [facility] Comment on above: Performed By: #### L [id number] #### [facility] (DEFAULT) [address] [place] [address] Hematocrit (Bld) [Volume fraction] 42.8 % Normal 34.9-44.3 [facility] Comment on above: Performed By: #### L [id number] #### [facility] (DEFAULT) [address] [place] [address] Hemoglobin (Bld) [Mass/Vol] 14.1 g/dL Normal 11.4-15. 2 [facility] Comment on above: Performed By: #### L [id number] #### [facility] (DEFAULT) [address] [place] [address] Immature Grans % 0.2 % Normal [facility] Comment on above: Performed By: #### L [id number] #### [facility] (DEFAULT) [address] [place] [address] Immature Grans Absolute < Normal <=0.08 [facility] Comment on above: Performed By: #### L [id number] #### [facility] (DEFAULT) [address] [place] [address] Lymphocytes (Bld) [#/Vol] 1.18 10*3/uL Normal 1.16-3.5 1 [facility] Comment on above: Performed By: #### L [id number] #### [facility] (DEFAULT) [address] [place] [address] Lymphocytes/100 WBC (Bld) 25.3 % Normal [facility] Comment on above: Performed By: #### L [id number] #### [facility] (DEFAULT) [address] [place] [address] MCV (RBC) [Entitic vol] 96.8 fL Normal 79.6-97.7 [facility] Comment on above: Performed By: #### L [id number] #### [facility] (DEFAULT) [address] [address] Mean Cell Hgb 31.9 pg Normal 25.9-33.9 [facility] Comment on above: Performed By: #### L [id number] #### [facility] (DEFAULT) [address] [place] [address] Mean Cell Hgb Conc 32.9 g/dL Normal 31.4-35.9 [facility] Comment on above: Performed By: #### L [id number] #### [facility] (DEFAULT) [address] [address] Monocytes (Bld) [#/Vol] 0.38 10*3/uL Normal 0.22-0.87 [facility] Comment on above: Performed By: #### L [id number] #### [facility] (DEFAULT) [address] [place] [address] Monocytes/100 WBC (Bld) 8.2 % Normal O [facility] Comment on above: Performed By: #### L [id number] #### [facility] (DEFAULT) [address] [address] Nucleated RBC 0.0 /100 WBC Normal <=0.2 [facility] Comment on above: Performed By: #### L [id number] #### [facility] (DEFAULT) [address] [place] [address] Platelet mean volume (Bld) [Entitic vol] 9.6 fL Normal 8.5-12.2 [facility] Comment on above: Performed By: #### L [id number] #### [facility] (DEFAULT) [address] [place] [address] Platelets (Bld) [#/Vol] 278 10*3/uL Normal 150-393 [facility] Comment on above: Performed By: #### L [id number] #### [facility] (DEFAULT) [address] [place] [address] RBC (Bld) [#/Vol] 4.42 10*6/uL Normal 3.91-5.04 [facility] Comment on above: Performed By: #### L [id number] #### [facility] (DEFAULT) [address] [place] [address] RBC Distribution 11.7 % Normal 10.8-14.9 [facility] Comment on above: Performed By: #### L [id number] #### [facility] (DEFAULT) [address] [place] [address] Segs + Bands Auto 63.0 % Normal [facility] Comment on above: Performed By: #### L [id number] #### [facility] (DEFAULT) [address] [place] [address] Segs + Bands,Absolute Auto 2.94 K/uL Normal 1.64-7.28 [facility] Comment on above: Performed By: #### L [id number] #### [facility] (DEFAULT) [address] [place] [address] WBC (Bld) [#/Vol] 4.66 10*3/uL Normal 3.99-11.19 [facility] Comment on above: Performed By: #### L [id number] #### [facility] (DEFAULT) [address] [place] [address] COMPREHENSIVE METABOLIC PANE Ian 03-26-2024 Albumin [Mass/Vol] 4.7 g/dL 3.5 - 5.0 g/dL [facility] ALP [Catalytic activity/Vol] 74 U/L 32 - 126 U/L [facility] ALT [Catalytic activity/Vol] 29 U/L 9 - 48 U/L [facility] Anion gap [Moles/Vol] 13 mmol/L 7 - 17 mmol/L [facility] AST [Catalytic activity/Vol] 26 U/L 10 - 39 U/L [facility] Bilirubin [Mass/Vol] 0.5 mg/dL NINF - 1.5 mg/dL [facility] Calcium [Mass/Vol] 9.5 mg/dL 8.6 - 10. 5 mg/dL [facility] Chloride [Moles/Vol] 105 mmol/L 98 - 10 8 mmol/L [facility] CO2 [Moles/Vol] 29 mmol/L 21 - 31 mmol/L [facility] Creatinine [Mass/Vol] 0.66 mg/dL 0.50 - 1.20 mg/dL [facility] eGFR, CKD-EPI, Female - PINF [facility] Comment on above: Reported eGFR is bas ed on the CKD-EPI 2020 equation using creatinine, age, and sex. Glucose [Mass/Vol] 92 mg/dL 70 - 99 mg/dL [facility] Osmolality Calc [Osmolality] 299 [facility] Potassium [Moles/Vol] 4.6 mmol/L 3.5 - 5.0 mmol/L [facility] Protein [Mass/Vol] 6.9 g/dL 6.4 - 8.3 g/dL [facility] Sodium [Moles/Vol] 142 mmol/L 135 - 145 mmol/L [facility] Urea nitrogen [Mass/Vol] 17 mg/dL 7 - 25 mg/dL [facility] Urea nitrogen/Creatinine [Mass ratio] 26 mg/mg [facility] Albumin [Mass/Vol] 4.7 g/dL Normal 3.5-5.0 [facility] Comment on above: Performed By: #### R F, CMPN, COMP #### [facility] (DEFAULT) [address] [place] [address] ALP [Catalytic activity/Vol] 74 U/L Normal 32-126 [facility] Comment on above: Performed By: #### R F, CMPN, COMP #### [facility] (DEFAULT) [address] [place] [address] ALT [Catalytic activity/Vol] 29 U/L Normal 9-48 [facility] Comment on above: Performed By: #### R F, CMPN, COMP #### [facility] (DEFAULT) [address] [place] [address] Anion gap [Moles/Vol] 13 mmol/L Normal 7-17 [facility] Comment on above: Performed By: #### R F, CMPN, COMP #### [facility] (DEFAULT) [address] [place] [address] AST [Catalytic activity/Vol] 26 U/L Normal 10-39 [facility] Comment on above: Performed By: #### R F, CMPN, COMP #### [facility] (DEFAULT) [address] [place] [address] Bilirubin [Mass/Vol] 0.5 mg/dL Normal <1.5 [facility] Comment on above: Performed By: #### R F, CMPN, COMP #### [facility] (DEFAULT) [address] [place] [address] Calcium [Mass/Vol] 9.5 mg/dL Normal 8.6-10.5 [facility] Comment on above: Performed By: #### R F, CMPN, COMP #### [facility] (DEFAULT) [address] [place] [address] Chloride [Moles/Vol] 105 mmol/L Normal 98-108 [facility] Comment on above: Performed By: #### R F, CMPN, COMP #### [facility] (DEFAULT) [address] [place] [address] CO2 [Moles/Vol] 29 mmol/L Normal 21-31 [facility] Comment on above: Performed By: #### R FMENDYN, COMP #### [facility] (DEFAULT) [address] [place] [address] Creatinine [Mass/Vol] 0.66 mg/dL Normal 0.50-1.20 [facility] Comment on above: Performed By: #### R F CMPN, COMP #### [facility] (DEFAULT) [address] [place] [address] eGFR, CKD-EPI, Female > Normal >=60 [facility] Comment on above: Result Comment: Repo rted eGFR is based on the CKD-EPI 2020 equation using creatinine, age, and sex. Performed By: #### R F CMPN, COMP #### [facility] (DEFAULT) [address] [place] [address] Glucose [Mass/Vol] 92 mg/dL Normal 70-99 [facility] Comment on above: Performed By: #### R FMENDYN, COMP #### [facility] (DEFAULT) [address] [place] [address] Osmolality [Osmolality] 299 mosm/kg Normal 278-305 [facility] Comment on above: Performed By: #### R F CMPN, COMP #### [facility] (DEFAULT) [address] [place] [address] Potassium [Moles/Vol] 4.6 mmol/L Normal 3.5-5.0 [facility] Comment on above: Performed By: #### R F CMPN, COMP #### [facility] (DEFAULT) [address] [place] [address] Protein [Mass/Vol] 6.9 g/dL Normal 6.4-8.3 [facility] Comment on above: Performed By: #### R F CMPN, COMP #### [facility] (DEFAULT) [address] [place] [address]99 Sodium [Moles/Vol] 142 mmol/L Normal 135-145 [facility] Comment on above: Performed By: #### R MENDY ClarkN, COMP #### [facility] (DEFAULT) [address] [place] [address]859 Urea nitrogen [Mass/Vol] 17 mg/dL Normal 7-25 [facility] Comment on above: Performed By: #### R F CMPN, COMP #### [facility] (DEFAULT) [address] [place] [address]471 Urea nitrogen/Creatinine [Mass ratio] 26 mg/mg Normal [facility] Comment on above: Performed By: #### ANA Rivers, COMP #### [facility] (DEFAULT) [address] [place] [address]55 DSDNA ANTIBODYon 03-26-2024 dsDNA Ab, Quant 5 IU/mL High <=4 [facility] Comment on above: Performed By: #### D SDNAB #### [facility] (DEFAULT) [address] [place] [address] 88056 dsDNA Antibody Indeterminate Abnormal Negative [facility] Comment on above: Performed By: #### D SDNAB #### [facility] (DEFAULT) [address] [place] [address] IMMUNOFIXATION SERUMon 03-26 REVIEWED BY: Griselda Loving DO Normal [facility] Comment on above: Performed By: #### P SD, PSE, SIMFXB #### [facility] (DEFAULT) [address] [place] [address] Serum Immunofixation Normal [facility] Comment on above: Result Comment: Thalia te possible monoclonal protein present, favor IgG lambda. Cannot classify further with the current specimen. See comment. Comment: Specificity of both heavy and light chains is difficult to ascertain in minute quantities due to the minimal change observed in immunosubtraction. Minor monoclonal proteins may be transient or evolve at which time they can be more definitively characterized. Suggest clinical correlation and repeat testing in 3 to 6 months. Suggest collection of 24-hour urine for immunofixation. Performed By: #### P SD, PSE, SIMFXB #### [facility] (DEFAULT) [address] [place] [address] PROTEIN ELECTROPHORESISon Albumin [Mass/Vol] 4.5 g/dL Normal 3.5-5.0 [facility] Comment on above: Performed By: #### P SD, PSE, SIMFXB #### [facility] (DEFAULT) [address] [place] [address]4768 Alpha 1 0.2 g/dL Normal 0.2-0.4 [facility] Comment on above: Performed By: #### P SD, PSE, SIMFXB #### [facility] (DEFAULT) [address] [place] [address]49 Alpha 2 0.6 g/dL Normal 0.5-1.0 [facility] Comment on above: Performed By: #### P SD, PSE, SIMFXB #### [facility] (DEFAULT) [address] [place] [address]347 Beta 0.6 g/dL Normal 0.5-1.1 [facility] Comment on above: Performed By: #### P SD, PSE, SIMFXB #### [facility] (DEFAULT) [address] [place] [address]2555 Gamma 0.8 g/dL Normal 0.6-1.5 [facility] Comment on above: Performed By: #### P SD, PSE, SIMFXB #### [facility] (DEFAULT) [address] [place] [address] Interpretation By: Griselda Loving, Normal [facility] Comment on above: Performed By: #### P SD, PSE, SIMFXB #### [facility] (DEFAULT) [address] [place] [address] Spe Interpretation There is a faint potential zone of restriction in the gamma region with normal remaining polyclonal immunoglobulins. This pattern suggests monoclonal or oligoclonal proteins that may occur in chronic inflammatory diseases (e.g., of liver), or may be idiopathic, or may represent a monoclonal gammopathy. Normal [facility] Comment on above: Performed By: #### P SD, PSE, SIMFXB #### [facility] (DEFAULT) [address] [place] [address] RHEUMATOID FACTOROrdered By: Michelle Davey on 03-26-2024 Interpretation and review of laboratory results Normal [facility] Rheumatoid factor Qn NINF [facility] RHEUMATOID FACTORon 03-26-20 24 Rheumatoid Factor <10 Normal <=14 [facility] Comment on above: Performed By: #### R F, CMPN, COMP #### [facility] (DEFAULT) [address] [place] [address] SPE SERUM TOTAL PROTEINon Protein [Mass/Vol] 6.7 g/dL Normal 6.4-8.3 [facility] Comment on above: Performed By: #### P SD, PSE, SIMFXB #### [facility] (DEFAULT) [address] [place] [address] Stress Reporton 02-27-2024 Stress Report [facility] Cardiovascular Services [address] [place] [address] MR#: [id number] Acct: [id number] Name: AMALIA RICHARDSON Rep #: [id number] : 1970 54 From: Bry Pelaez MD Primary Care: Dr. Kenzie Torrez, DO Status: R EG CLI Referring Dr: Bry Pelaez MD Sex: F C Stress Test Report Exercise myocardial perfusion stress test. 54-year-old lady with a history of coronary artery disease status post coronary bypass surgery Stress protocol: Resting EKG demonstrates normal sinus rhythm with a rate of 62 bpm resting blood pressure is 98/70 mmHg. The patient exercised according to the regular Sukh protocol for a total duration of 10 minutes and 46 seconds attaining a maximum heart rate of 142 bpm which was 85% of maximum predicted heart rate; the maximum workload was 13.4 metabolic equivalents. At rest there were no ST or T wave changes noted to suggest ischemia and at peak exercise upsloping ST changes only were noted which did not meet the criteria for ischemia. No clinical angina was noted the test was terminated due to the target heart rate being achieved/fatigue. The peak blood pressure was 132/70 mmHg. Rate- pressure product was 16,700. Myocardial perfusion protocol. 11 point mCi of technetium 99m sestamibi was injected at rest. The patient exercised according to regular Sukh protocol for total duration of 10 minutes and 46 seconds and at peak exercise 34 point mCi of technetium 99m sestamibi was injected stress images were obtained stress and rest images were reconstructed in comparing the short axis vertical long and horizontal long axis. Gated images were also obtained. Perfusion SPECT analysis: Review of the stress images demonstrate normal uptake of tracer noted in all areas of the myocardium. The resting images similarly demonstrate normal uptake of tracer noted in all areas of the myocardium. No areas of reversibility are noted to suggest ischemia no previous infarct was noted. Gated SPECT analysis: The gated ejection fraction is 55%. Conclusion: Normal exercise myocardial perfusion stress test at a high workload Preserved ejection fraction. 02/27/24 1611 Date Bry Pelaez MD CC: Dr. Bry Pelaez MD; Dr. Kenzie Torrez DO Date Dictated: 02/27/241608 Date Transcribed: 02/27/241608 Gravedigger: CO Signed Normal [facility] Breast Limited Unilateralon 02-02-2024 Breast Limited Unilateral [facility] Imaging Services [address] [place], [place] [id number] Breast Limited Unilateral MR#: [id number] Acct: [id number] Name: AMALIA RICHARDSON Rep #: [id number] : 1970 F 54 From: Garrett bateman MD PCP: Dr. Kenzie Torrez DO Status: REG CLI Study: Breast Limited Unilateral Date of Exam: Exam# [id number] Ordering Dr: Dana Crisostomo CNM [id number] STUDY: ULTRASOUND BREAST - RIGHT REASON FOR EXAM: Female, 54 years old. Abnormal screening mammogram. TECHNIQUE: Axial and longitudinal images of the RIGHT breast were performed with a high resolution ultrasound transducer. # OF IMAGES: 32 COMPARISON: Comparison is made with prior mammogram dated February 01, 2024. Prior sonogram of the right breast in January 28, 2023. FINDINGS: RIGHT Breast: The upper lateral aspect of the right breast was examined with ultrasound. The mammographic finding corresponds to a 2.6 cm x 2.6 x 1.3 cm cyst at the 10:00 position breast 6 cm from nipple. This also evidence of a 1 cm x 1 cm x 0.9 cm cyst in the retroareolar region as well as a septated cyst measuring 8 mm x 7 mm x 6 mm. A complex cyst is also seen at the 10:00 position breast at 4 cm from the nipple measuring 6 mm x 6 mm x 5 mm. US/Breast Limited Unilateral IMPRESSION: The mammographic and amount corresponds to a dominant cyst. Other cysts are seen as described. ASSESSMENT CATEGORY: BIRADS Category 2: Benign. A letter regarding these results will be sent to the patient by the facility within 30 days. Electronically Signed: Garrett Reed MD at 13:27 EDT , CC: SHASHI Crisostomo; Dr. Kenzie Torrez DO Gravedigger: Signed Normal [facility] SCRN MAMM (CAD)W/YUE bourgeois 02-01-2024 SCRN MAMM (CAD)W/YUE BILAT [facility] Imaging Services [address] [place] [address] SCRN MAMM (CAD)W/YUE BILAT MR#: [id number] Acct: [id number] Name: AMALIA RICHARDSON Rep #: [id number] : 1970 F 54 From: Garrett bateman MD PCP: Dr. Kenzie Torrez, DO Status: REG CLI Study: SCRN MAMM (CAD)W/YUE BILAT Date of Exam: 01/10 07/02 Exam# [id number] Ordering Dr: Dana Crisostomo [facility] [id number] MAMMOGRAPHY - BILATERAL SCREENING REASON FOR EXAM: Female, 54 years old. Routine annual screening examination. PERTINENT HISTORY: Mother with breast cancer. Prior sonogram demonstrated a right breast cyst. TECHNIQUE: Digital bilateral breast yue (3D mammographic acquisition) in the CC and MLO projections. 2-D mediolateral oblique (MLO) and craniocaudad (CC) views of both breasts were obtained. CAD: Full Field Digital Mammography with Computer Added Detection was performed. COMPARISON: Comparison is made with prior study dated January 21, 2023 and January 20, 2022. FINDINGS: Breast Composition: The breasts are extremely dense, which lowers the sensitivity of mammography. There is a 2.5 cm x 3 cm well-defined nodule in the upper lateral aspect of the right breast. Adjacent to this, there is a similar well-defined nodule measuring 1.7 cm x 1.6 cm. These have increased in size as compared to prior study. No other significant abnormalities are identified. BI/SCRN MAMM (CAD)W/YUE BILAT IMPRESSION: There are 2 adjacent nodules in the right breast as described. These have increased in size as compared to prior study. Repeat sonogram is recommended. ASSESSMENT CATEGORY: BIRADS Category 0: Incomplete. Need additional imaging evaluation. A letter regarding these results will be sent to the patient by the facility within 30 days. Approximately 10% of breast cancers are not detected by mammography. A normal mammogram should not delay biopsy of a clinically suspicious abnormality. [id number] Electronically Signed: Garrett Reed MD at 10:21 EDT , CC: SHASHI Crisotsomo; Dr. Kenzie Torrez DO Gravedigger: Signed Normal [facility] Cardiology Visit Reporton Cardiology Visit Report [facility]. [address] [place] [address] OFFICE VISIT Date of Service: 01/31/24 MR#: [id number] Acct: [id number] Name: AMALIA RICHARDSON Rep #: [id number] : 1970 Provider: Dr. Bry Pelaez MD Age/Sex: 54/F Location: [facility] Status: Signed HPI HPI History of Present Illness Details: AMALIA RICHARDSON, is a 54 y/o pleasant lady with a history of mentasta left anterior descending artery stenosis status post angioplasty and stenting with restenosis who underwent a BEST to the LAD via MIDCAB approach in April 2018. Postoperatively it appears that she developed pericarditis and needed to be hospitalized here for a few days. She had initially been started on colchicine but she developed diarrhea from this and she was placed on nonsteroidal anti-inflammatory agents and has improved with that. Her last echocardiogram demonstrated preserved ejection fraction there was no evidence of pericardial effusion. In December of 2018 she underwent a cardiac catheterization which demonstrated the persistent stenosis in the proximal left anterior descending artery, the left internal mammary artery to the left anterior descending artery was patent but proximal to the anastomotic site was an area of approximately 80% stenosis. The vessel then retrogradely filled a larger limb of the left anterior descending artery. The circumflex artery also had an new moderate proximal irregular 40 to 50% stenotic lesion in the right coronary artery was free of any significant stenosis. She underwent angioplasty and stenting of the proximal left anterior descending artery. She has since undergone a stress test in March 2019 which was normal. She had presented in August of 2020 with chest discomfort and underwent cardiac catheterization which demonstrated patent proximal and mid LAD stents, patent BEST to the septal distal to the 70% stenosis, RCA with no significant disease and 40% left circumflex artery stenosis. Medical therapy was recommended she was put on lisinopril and has done remarkably well. She has continued to do remarkably well and denies any chest pain or shortness with the paroxysmal nocturnal dyspnea pedal edema she recently completed her daughter's wedding and she did not have any problems. Intake Vital Signs 06/15/23 15:32 01/31/24 14:08 Height 5 ft 1 in 5 ft 1 in Weight: 126 lb 2 oz 120 lb BMI 23.8 22.6 BP 133/82 H 127/80 H Blood Pressure Location Lt brachial Position Sitting Respiration 16 Pulse 70 Pulse Source Monitor Intake Visit Reasons: 1 y fu Criminal Investigative Agent Required: No Accompanied by: Self Is patient in pain?: No Allergies colchicine Allergy (Mild, Verified 01/31/24 14:11) unknown omeprazole Allergy (Verified 01/31/24 14:11) lupus rash Sndycsf-Hyg-Tjg Reductase Inhibitor Allergy (Verified 01/31/24 14:11) fever, abn liver function test Sulfa (Sulfonamide Antibiotics) Allergy (Verified 01/31/24 14:11) Nausea/Vom/Diarrhea tramadol HCl (From [facility]) Adverse Reaction (Verified 01/31/24 14:11) Other Medications ???Medication ???Instructions ???Recorded ???Confirmed ???Type aspirin 81 mg tablet,delayed 81 mg PO DAILY #90 tabs 12/23/17 01/31/24 Rx release (Adult Aspirin Regimen) cholecalciferol (vitamin D3) 50 50 mcg PO DAILY 01/09/21 01/31/24 History mcg (2,000 unit) capsule hydroxychloroquine 200 mg tablet 200 mg PO DAILY 01/09/21 01/31/24 History (Plaquenil) buspirone 5 mg tablet 5 mg PO BID 04/28/22 01/31/24 History levonorgestrel 21 mcg/24 hr (up to 1 device intrauterine ONCE 06/15/23 01/31/24 History 8 years) 52 mg intrauterine device (Mirena) clopidogrel 75 mg tablet 75 mg PO DAILY cardiac #90 tabs 08/05/23 01/31/24 Rx lisinopril 5 mg tablet 5 mg PO BID #180 tabs 09/06/23 01/31/24 Rx ezetimibe 10 mg tablet See Rx Instructions .Route 10/27/23 01/31/24 Rx .COMPLEX #90 tabs rosuvastatin 5 mg tablet See Rx Instructions .Route 10/27/23 01/31/24 Rx .COMPLEX #36 tabs folic acid 1 mg tablet 1 mg PO DAILY #90 tabs 12/16/23 01/31/24 Rx metoprolol succinate 25 mg 25 mg PO DAILY #90 tabs 01/19/24 01/31/24 Rx tablet,extended release 24 hr Have you fallen in the past year?: No PFSH Medical History Anxiety History of lupus History of ulcerative colitis History of echocardiogram Headache Alcohol use Non-smoker History of stress test Cardiology follow-up encounter History of hematuria Chest wall asymmetry Lupus Adenomyosis Pericarditis Acute pericarditis Drug-induced lupus erythematosus Hyperlipidemia Ulcerative colitis Elevated LFTs 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 Normal [facility] CBC, Employeeon 12-13-2023 Absolute Lymph 1.39 X10 3/uL Normal 0.83-4.51 [facility] Comment on above: Performed By: #### L 400.0100, L100.0200, L500.2900 #### [facility] [address] [place], [address] Absolute Neut 3.2 X10 3/uL Normal 2.0-7.7 [facility] Comment on above: Performed By: #### L 400.0100, L100.0200, L500.2900 #### [facility] [address] [place], [address] Basophils/100 WBC (Bld) 0.6 % Normal 0-1 [facility] Comment on above: Performed By: #### L 400.0100, L100.0200, L500.2900 #### [facility] [address] [place], [address] Eosinophils/100 WBC (Bld) 2.5 % Normal 0-5 [facility] Comment on above: Performed By: #### L 400.0100, L100.0200, L500.2900 #### [facility] [address] [place], [address] Erythrocyte distribution width (RBC) [Ratio] 11.6 % Normal 11.6-14.6 [facility] Comment on above: Performed By: #### L 400.0100, L100.0200, L500.2900 #### [facility] [address] [place], [address] Hematocrit (Bld) [Volume fraction] 40.1 % Normal 37-47 [facility] Comment on above: Performed By: #### L 400.0100, L100.0200, L500.2900 #### [facility] [address] [place], [address] Hemoglobin (Bld) [Mass/Vol] 13.4 g/dL Normal 12.0-15. 0 [facility] Comment on above: Performed By: #### L 400.0100, L100.0200, L500.2900 #### [facility] [address] [place], [address] Lymphocytes/100 WBC (Bld) 26.5 % Normal 19-41 [facility] Comment on above: Performed By: #### L 400.0100, L100.0200, L500.2900 #### [facility] [address] [place], [address] MCH (RBC) [Entitic mass] 31.7 pg Normal 27.0-32.0 [facility] Comment on above: Performed By: #### L 400.0100, L100.0200, L500.2900 #### [facility] [address] [place], [address] MCHC (RBC) [Mass/Vol] 33.4 g/dL Normal 32-36 [facility] Comment on above: Performed By: #### L 400.0100, L100.0200, L500.2900 #### [facility] [address] [place], [address] MCV (RBC) [Entitic vol] 94.8 fL Normal 81-99 [facility] Comment on above: Performed By: #### L 400.0100, L100.0200, L500.2900 #### [facility] [address] [place], [address] Monocytes/100 WBC (Bld) 9.7 % Normal 0-10 [facility] Comment on above: Performed By: #### L 400.0100, L100.0200, L500.2900 #### [facility] [address] [place], [address] Neutrophils/100 WBC (Bld) 60.5 % Normal 47-70 [facility] Comment on above: Performed By: #### L 400.0100, L100.0200, L500.2900 #### [facility] [address] [place], [address] NRBC # 0.00 10 3/uL Normal 0-5 [facility] Comment on above: Performed By: #### L 400.0100, L100.0200, L500.2900 #### [facility] [address] [place], [address] Nucleated RBC (Bld) [#/Vol] 0 10*3/uL Normal 0-5 [facility] Comment on above: Performed By: #### L 400.0100, L100.0200, L500.2900 #### [facility] [address] [place], [address] Platelet mean volume (Bld) [Entitic vol] 9.3 fL Normal 6.2-12.0 [facility] Comment on above: Performed By: #### L 400.0100, L100.0200, L500.2900 #### [facility] [address] [place], [address] Platelets (Bld) [#/Vol] 282 10*3/uL Normal 150-450 [facility] Comment on above: Performed By: #### L 400.0100, L100.0200, L500.2900 #### [facility] [address] [place], [address] RBC (Bld) [#/Vol] 4.23 10*6/uL Normal 4.2-5.4 [facility] Comment on above: Performed By: #### L 400.0100, L100.0200, L500.2900 #### [facility] [address] [place], [address] RDW SD 39.9 fl Normal 35.1-43.9 [facility] Comment on above: Performed By: #### L 400.0100, L100.0200, L500.2900 #### [facility] [address] [place], [address] WBC (Bld) [#/Vol] 5.3 10*3/uL Normal 4.4-11.0 [facility] Comment on above: Performed By: #### L 400.0100, L100.0200, L500.2900 #### [facility] [address] [place], [address] Employee Profileon 4 Albumin [Mass/Vol] 3.8 g/dL Normal 3.2-5.0 [facility] Comment on above: Performed By: #### L 400.0100, L100.0200, L500.2900 #### [facility] [address] [place], [address] Albumin/Globulin [Mass ratio] 1.4 {ratio} Normal 0.9-2.4 [facility] Comment on above: Performed By: #### L 400.0100, L100.0200, L500.2900 #### [facility] [address] [place], [address] ALK P 80 U/L Normal 45-117 [facility] Comment on above: Performed By: #### L 400.0100, L100.0200, L500.2900 #### [facility] [address] [place], [address] ALT [Catalytic activity/Vol] 44 U/L Normal 13-56 [facility] Comment on above: Performed By: #### L 400.0100, L100.0200, L500.2900 #### [facility] [address] [place], [address] AST [Catalytic activity/Vol] 29 U/L Normal 15-37 [facility] Comment on above: Performed By: #### L 400.0100, L100.0200, L500.2900 #### [facility] [address] [place], [address] Bilirubin [Mass/Vol] 0.70 mg/dL Normal 0.20-1.00 [facility] Comment on above: Result Comment: For patients on eltrombopag therapy, use of Dimension [place] TBIL is not recommended. Performed By: #### L 400.0100, L100.0200, L500.2900 #### [facility] [address] [place], [address] Bilirubin.direct [Mass/Vol] 0.22 mg/dL Normal 0.00-0.3 0 [facility] Comment on above: Performed By: #### L 400.0100, L100.0200, L500.2900 #### [facility] [address] [place], [address] BUN/CRE 15.7 RATIO Normal 10-20 [facility] Comment on above: Performed By: #### L 400.0100, L100.0200, L500.2900 #### [facility] [address] [place], [address] CA,Total 9.3 mg/dL Normal 8.5-10.1 [facility] Comment on above: Performed By: #### L 400.0100, L100.0200, L500.2900 #### [facility] [address] [place], [address] Chloride [Moles/Vol] 108 mmol/L High 98-107 [facility] Comment on above: Performed By: #### L 400.0100, L100.0200, L500.2900 #### [facility] [address] [place], [address] CHOL:HDL 2.10 Normal [facility] Comment on above: Performed By: #### L 400.0100, L100.0200, L500.2900 #### [facility] [address] [place], [address] Cholesterol [Mass/Vol] 115 mg/dL Normal 200 [facility] Comment on above: Result Comment: <200 mg/dL Desirable 200-240 mg/dL Borderline >240 mg/dL High Risk Performed By: #### L 400.0100, L100.0200, L500.2900 #### [facility] [address] [place], [address] Cholesterol in HDL [Mass/Vol] 54 mg/dL Normal [facility] Comment on above: Result Comment: The drugs N-Acetylcysteine and Metamizole may falsely depress this assay. Reference Range HDL <40 mg/dL Low HDL Cholesterol HDL >or= 60 mg/dL High HDL Cholesterol Performed By: #### L 400.0100, L100.0200, L500.2900 #### [facility] [address] [place], [address] Cholesterol in LDL [Mass/Vol] 47 mg/dL Normal 0-130 [facility] Comment on above: Performed By: #### L 400.0100, L100.0200, L500.2900 #### [facility] [address] [place], [address] Cholesterol in VLDL [Mass/Vol] 14 mg/dL Normal 5-40 [facility] Comment on above: Performed By: #### L 400.0100, L100.0200, L500.2900 #### [facility] [address] [place], [address] CO2 [Moles/Vol] 28.0 mmol/L Normal 21.0-32.0 [facility] Comment on above: Performed By: #### L 400.0100, L100.0200, L500.2900 #### [facility] [address] [place], [address] Creatinine [Mass/Vol] 0.76 mg/dL Normal 0.55-1.02 [facility] Comment on above: Result Comment: The validity of the calculated GFR GFRAA in patients over 70 years has not been determined. Clinical correlation is essential. Performed By: #### L 400.0100, L100.0200, L500.2900 #### [facility] [address] [place], [address] EST GFR - AA 102 mL/min Normal >60 [facility] Comment on above: Result Comment: Afri can Citizen [place] GFR Calc Performed By: #### L 400.0100, L100.0200, L500.2900 #### [facility] [address] [place], [address] GAP 6 Normal 5-15 [facility] Comment on above: Performed By: #### L 400.0100, L100.0200, L500.2900 #### [facility] [address] [place], [address] GFR/1.73 sq M.predicted among non-blacks MDRD (S/P/Bld) [Vol rate/Area] 84 mL/min/{1.73_m2} Normal >60 [facility] Comment on above: Result Comment: Non- GFR Calc Performed By: #### L 400.0100, L100.0200, L500.2900 #### [facility] [address] [place], [address] Globulin (S) [Mass/Vol] 2.7 g/dL Normal 2.2-4.2 [facility] Comment on above: Performed By: #### L 400.0100, L100.0200, L500.2900 #### [facility] [address] [place], [address] Glucose [Mass/Vol] 105 mg/dL Normal 74-106 [facility] Comment on above: Result Comment: Fast ing Glucose result from 100 to 125 mg/dL suggests IMPAIRED HOMEOSTASIS per A.D.A. criteria. Performed By: #### L 400.0100, L100.0200, L500.2900 #### [facility] [address] [place], [address] LDH 173 U/L Normal 84-246 [facility] Comment on above: Performed By: #### L 400.0100, L100.0200, L500.2900 #### [facility] [address] [place], [address] Phosphate [Mass/Vol] 3.6 mg/dL Normal 2.5-4.9 [facility] Comment on above: Performed By: #### L 400.0100, L100.0200, L500.2900 #### [facility] [address] [place], [address] Potassium [Moles/Vol] 3.7 mmol/L Normal 3.5-5.1 [facility] Comment on above: Performed By: #### L 400.0100, L100.0200, L500.2900 #### [facility] [address] [place], [address] Sodium [Moles/Vol] 142 mmol/L Normal 136-145 [facility] Comment on above: Performed By: #### L 400.0100, L100.0200, L500.2900 #### [facility] [address] [place], [address] T PROT 6.5 g/dL Normal 6.4-8.2 [facility] Comment on above: Performed By: #### L 400.0100, L100.0200, L500.2900 #### [facility] [address] [place], [address] Triglyceride [Mass/Vol] 68 mg/dL Normal [facility] Comment on above: Result Comment: The drugs N-Acetylcysteine and Metamizole may falsely depress this assay. Serum Triglycerides Reference Interval Normal <150 mg/dL Borderline high 150 - 199 mg/dL High 200 - 499 mg/dL Very High > or = 500 mg/dL Performed By: #### L 400.0100, L100.0200, L500.2900 #### [facility] [address] [place], [address] Urea nitrogen [Mass/Vol] 12 mg/dL Normal 7-18 [facility] Comment on above: Performed By: #### L 400.0100, L100.0200, L500.2900 #### [facility] [address] [place], [address] URIC 5.0 mg/dL Normal 2.6-6.0 [facility] Comment on above: Result Comment: The drugs N-Acetylcysteine and Metamizole may falsely depress this assay. Performed By: #### L 400.0100, L100.0200, L500.2900 #### [facility] [address] [place], [address] Urinalysis, Employeeon 12-12 BILIRUBIN URINE Negative Normal Negative [facility] Comment on above: Performed By: #### L 400.0100, L100.0200, L500.2900 #### [facility] [address] [place], [address] Clarity (U) Clear Normal Clear [facility] Comment on above: Performed By: #### L 400.0100, L100.0200, L500.2900 #### [facility] [address] [place], [address] Color (U) Yellow Normal Yellow [facility] Comment on above: Performed By: #### L 400.0100, L100.0200, L500.2900 #### [facility] [address] [place], [address] GLUCOSE, UR Normal Normal Normal [facility] Comment on above: Performed By: #### L 400.0100, L100.0200, L500.2900 #### [facility] [address] [place], [address] KETONE UR Negative Normal Negative [facility] Comment on above: Performed By: #### L 400.0100, L100.0200, L500.2900 #### [facility] [address] [place], [address] LEUK ESTERASE 25 /ul Abnormal Negative [facility] Comment on above: Performed By: #### L 400.0100, L100.0200, L500.2900 #### [facility] [address] [place], [address] Nitrite Ql (U) Negative Normal Negative [facility] Comment on above: Performed By: #### L 400.0100, L100.0200, L500.2900 #### [facility] [address] [place], [address] OCCULT BLOOD-UR 25 /ul Abnormal Negative [facility] Comment on above: Performed By: #### L 400.0100, L100.0200, L500.2900 #### [facility] [address] [place], [address] pH UR 6.0 Normal 5.0 - 8.0 [facility] Comment on above: Performed By: #### L 400.0100, L100.0200, L500.2900 #### [facility] [address] [place], [address] PROT DIPSTX Negative Normal Negative [facility] Comment on above: Performed By: #### L 400.0100, L100.0200, L500.2900 #### [facility] [address] [place], [address] SP.GR. DIPSTX 1.025 Normal 1.002-1.03 0 [facility] Comment on above: Performed By: #### L 400.0100, L100.0200, L500.2900 #### [facility] [address] [place], [address] UROBILI Normal Normal Normal [facility] Comment on above: Performed By: #### L 400.0100, L100.0200, L500.2900 #### [facility] [address] [place], [address] Absolute lymphocyte countOrd ered By: [place] Latanya on 04-23-2023 Lymphocytes Auto (Unsp spec) [#/Vol] 1.17 10*3/uL 0.83-4.51 [facility] Basophil percentageOrdered B y: [place] Latanya on 04-23-2023 Basophils/100 WBC (Bld) 0.7 % 0-1 [facility] Chloride [Moles/Vol] 108 mmol/L 98-107 [facility] Eosinophils/100 WBC (Bld) 1.7 % 0-5 [facility] Glucose [Mass/Vol] 103 mg/dL 74-106 [facility] Comment on above: Fasting Glucose resu lt from 100 to 125 mg/dL suggests IMPAIRED HOMEOSTASIS per A.D.A. criteria. Neutrophils (Bld) [#/Vol] 4.0 10*3/uL 2.0-7.7 [facility] Neutrophils/100 WBC (Bld) 69.6 % 47-70 [facility] Potassium [Moles/Vol] 3.8 mmol/L 3.5-5.1 [facility] Sodium [Moles/Vol] 139 mmol/L 136-145 [facility] WBC (Bld) [#/Vol] 5.8 10*3/uL 4.4-11.0 [facility] Blood erythrocytes count (nu mber/volume)Ordered By: Bry Latanya on 04-23-2023 RBC (Bld) [#/Vol] 4.29 10*6/uL 4.2-5.4 [facility] Blood hemoglobin measurement (mass/volume)Ordered By: [place] Latanya on 04-23-2023 Hemoglobin (Bld) [Mass/Vol] 13.8 g/dL 12.0-15. 0 [facility] Blood lymphocytes/100 leukoc ytesOrdered By: [place] Latanya on 04-23-2023 Lymphocytes/100 WBC (Bld) 20.2 % 19-41 [facility] Blood monocytes/100 leukocyt esOrdered By: Bry Latanya on 04-23-2023 Monocytes/100 WBC (Bld) 7.8 % 0-10 [facility] Blood platelet mean volumeOr dered By: Bry Pelaez on 04-23-2023 Platelet mean volume (Bld) [Entitic vol] 8.9 fL 6.2-12.0 [facility] Determination of erythrocyte mean corpuscular volume (MCV)Ordered By: Bry Pelaez on 04-23-2023 MCV (RBC) [Entitic vol] 94.4 fL 81-99 [facility] Hematocrit Auto (Bld) [Volum e fraction]Ordered By: Bry Pelaez on 04-23-2023 Hematocrit (Bld) [Volume fraction] 40.5 % 37-47 [facility] - Chemistry and C hemistry - challengeOrdered By: [place] Latanya on 04-23-2023 CO2 [Moles/Vol] 26.0 mmol/L 21.0-32.0 [facility] Magnesium [Mass/Vol] 2.1 mg/dL 1.6-2.6 [facility] Natriuretic peptide B (Bld) [Mass/Vol] 3.0 pg/mL 0-100 [facility] Urea nitrogen/Creatinine [Mass ratio] 16.1 mg/mg 10-20 [facility] - Hematology and Cell countsOrdered By: Bry Pelaez on 04-23-2023 Erythrocyte distribution width (RBC) [Entitic vol] 39.8 fL 35.1-43.9 [facility] Erythrocyte distribution width (RBC) [Ratio] 11.6 % 11.6-14.6 [facility] Immature granulocytes/100 WBC (Bld) 0.000 % 0.0-0.9 [facility] Comment on above: IG% - Immature Granu locytes (promyelocytes, myelocytes and metamyelocytes) > 1% indicates that a LEFT SHIFT is Present. MCH (RBC) [Entitic mass] 32.2 pg 27.0-32.0 [facility] Nucleated RBC/100 WBC (Bld) [Ratio] 0.3 % 0-5 [facility] MCHC Auto (RBC) [Mass/Vol]Or dered By: Bry Pelaez on 04-23-2023 MCHC (RBC) [Mass/Vol] 34.1 g/dL 32-36 [facility] No Panel InformationOrdered By: Bry Pelaez on 04-23-2023 Estimated GFR (MDRD) Amer 96 mL/min >60 [facility] Comment on above: GFR Calc Estimated GFR (MDRD) Non-Af Amer 79 mL/min >60 [facility] Comment on above: Non- GFR Calc Troponin I High Sensitivity 3 pg/mL 3.0-54.0 [facility] Comment on above: Please Note: [place] t Units and Gender Specific Reference Ranges. For more information see Policy Stat Procedure [place] High Sensitivity Troponin (TNIH) and attachments. Platelets bldOrdered By: Silvia Pelaez on 04-23-2023 Platelets (Bld) [#/Vol] 312 10*3/uL 150-450 [facility] Serum or plasma calcium nestor urement (mass/volume)Ordered By: Bry Pelaez on 04-23-2023 Calcium [Mass/Vol] 9.3 mg/dL 8.5-10.1 [facility] Serum or plasma creatinine m easurement (mass/volume)Ordered By: Bry Pelaez on 04-23-2023 Creatinine [Mass/Vol] 0.81 mg/dL 0.55-1.02 [facility] Comment on above: The validity of the calculated GFR & GFRAA in patients over 70 years has not been determined. Clinical correlation is essential. Serum or plasma urea nitroge n measurement (mass/volume)Ordered By: Bry Pelaez on 04-23-2023 Urea nitrogen [Mass/Vol] 13 mg/dL 7-18 [facility] Thin prep Papanicolaou smear with manual screeningOrdered By: Bry Pelaez on 04-23-2023 Thin prep Papanicolaou smear with manual screening 5 5-15 [facility] - Chemistry and C hemistry - challengeOrdered By: Yuan Reyes on 04-19-2023 HCG ( test) Ql (U) Negative [facility] Comment on above: Very dilute urine sp ecimens, as indicated by a low specificgravity, may not contain area representative levels of hCG. If is still suspected, a first morning urinespecimen should be collected 48 hours later and tested. Absolute lymphocyte countOrd ered By: Ramesh Betancourt on 04-06-2023 Lymphocytes Auto (Unsp spec) [#/Vol] 1.20 10*3/uL 0.83-4.51 [facility] Basophil percentageOrdered B y: Ramesh Betancourt on 04-06-2023 Basophils/100 WBC (Bld) 0.8 % 0-1 [facility] Bilirubin [Mass/Vol] 0.60 mg/dL 0.20-1.00 [facility] Comment on above: For patients on eltr ombopag therapy, use of Dimension [place] TBIL is not recommended. Chloride [Moles/Vol] 109 mmol/L 98-107 [facility] Eosinophils/100 WBC (Bld) 4.1 % 0-5 [facility] Glucose [Mass/Vol] 103 mg/dL 74-106 [facility] Comment on above: Fasting Glucose resu lt from 100 to 125 mg/dL suggests IMPAIRED HOMEOSTASIS per A.D.A. criteria. Neutrophils (Bld) [#/Vol] 4.1 10*3/uL 2.0-7.7 [facility] Neutrophils/100 WBC (Bld) 66.5 % 47-70 [facility] Potassium [Moles/Vol] 4.0 mmol/L 3.5-5.1 [facility] Protein [Mass/Vol] 6.6 g/dL 6.4-8.2 [facility] Sodium [Moles/Vol] 140 mmol/L 136-145 [facility] WBC (Bld) [#/Vol] 6.1 10*3/uL 4.4-11.0 [facility] Blood erythrocytes count (nu mber/volume)Ordered By: Ramesh Betancourt on 04-06-2023 RBC (Bld) [#/Vol] 4.21 10*6/uL 4.2-5.4 [facility] Blood hemoglobin measurement (mass/volume)Ordered By: Ramesh Betancourt on 04-06-2023 Hemoglobin (Bld) [Mass/Vol] 13.5 g/dL 12.0-15. 0 [facility] Blood lymphocytes/100 leukoc ytesOrdered By: Ramesh Betancourt on 04-06-2023 Lymphocytes/100 WBC (Bld) 19.7 % 19-41 [facility] Blood monocytes/100 leukocyt esOrdered By: Ramesh Betancourt on 04-06-2023 Monocytes/100 WBC (Bld) 8.7 % 0-10 [facility] Blood platelet mean volumeOr dered By: Ramesh Betancourt on 04-06-2023 Platelet mean volume (Bld) [Entitic vol] 9.3 fL 6.2-12.0 [facility] Determination of erythrocyte mean corpuscular volume (MCV)Ordered By: Ramesh Betancourt on 04-06-2023 MCV (RBC) [Entitic vol] 96.4 fL 81-99 [facility] Hematocrit Auto (Bld) [Volum e fraction]Ordered By: Ramesh Betancourt on 04-06-2023 Hematocrit (Bld) [Volume fraction] 40.6 % 37-47 [facility] - Chemistry and C hemistry - challengeOrdered By: Ramesh Betancourt on 04-06-2023 ALP [Catalytic activity/Vol] 66 U/L 45-117 [facility] ALT [Catalytic activity/Vol] 34 U/L 13-56 [facility] CO2 [Moles/Vol] 29.0 mmol/L 21.0-32.0 [facility] Globulin (S) [Mass/Vol] 2.8 g/dL 2.2-4.2 [facility] Urea nitrogen/Creatinine [Mass ratio] 19.9 mg/mg 10-20 [facility] - Hematology and Cell countsOrdered By: Ramesh Betancourt on 04-06-2023 Erythrocyte distribution width (RBC) [Entitic vol] 41.7 fL 35.1-43.9 [facility] Erythrocyte distribution width (RBC) [Ratio] 11.8 % 11.6-14.6 [facility] Immature granulocytes/100 WBC (Bld) 0.200 % 0.0-0.9 [facility] Comment on above: IG% - Immature Granu locytes (promyelocytes, myelocytes and metamyelocytes) > 1% indicates that a LEFT SHIFT is Present. MCH (RBC) [Entitic mass] 32.1 pg 27.0-32.0 [facility] Nucleated RBC/100 WBC (Bld) [Ratio] 0 % 0-5 [facility] MCHC Auto (RBC) [Mass/Vol]Or dered By: Ramesh Betancourt on 04-06-2023 MCHC (RBC) [Mass/Vol] 33.3 g/dL 32-36 [facility] No Panel InformationOrdered By: Ramesh Betancourt on 04-06-2023 Estimated GFR (MDRD) Amer 96 mL/min >60 [facility] Comment on above: GFR Calc Estimated GFR (MDRD) Non-Af Amer 79 mL/min >60 [facility] Comment on above: Non- GFR Calc Platelets bldOrdered By: Sebastian Betancourt on 04-06-2023 Platelets (Bld) [#/Vol] 255 10*3/uL 150-450 [facility] Serum or plasma albumin nestor urement (mass/volume)Ordered By: Ramesh Betancourt on 04-06-2023 Albumin [Mass/Vol] 3.8 g/dL 3.2-5.0 [facility] Serum or plasma albumin/glob ulin mass ratioOrdered By: Ramesh Betancourt on 04-06-2023 Albumin/Globulin [Mass ratio] 1.4 {ratio} 0.9-2.4 [facility] Serum or plasma calcium nestor urement (mass/volume)Ordered By: Ramesh Betancourt on 04-06-2023 Calcium [Mass/Vol] 9.8 mg/dL 8.5-10.1 [facility] Serum or plasma creatinine m easurement (mass/volume)Ordered By: Ramesh Betancourt on 04-06-2023 Creatinine [Mass/Vol] 0.81 mg/dL 0.55-1.02 [facility] Comment on above: The validity of the calculated GFR & GFRAA in patients over 70 years has not been determined. Clinical correlation is essential. Serum or plasma urea nitroge n measurement (mass/volume)Ordered By: Ramesh Betancourt on 04-06-2023 Urea nitrogen [Mass/Vol] 16 mg/dL 7-18 [facility] Thin prep Papanicolaou smear with manual screeningOrdered By: Ramesh Betancourt on 04-06-2023 Thin prep Papanicolaou smear with manual screening 28 U/L 15-37 [facility] Thin prep Papanicolaou smear with manual screening 2 5-15 [facility] - Chemistry and C hemistry - challengeOrdered By: Yuan Reyes on 01-26-2023 HCG ( test) Ql (U) Negative [facility] Comment on above: Very dilute urine sp ecimens, as indicated by a low specificgravity, may not contain area representative levels of hCG. If is still suspected, a first morning urinespecimen should be collected 48 hours later and tested. Absolute lymphocyte countOrd ered By: HEALTH ASSESSMENT on 12-06-2022 Lymphocytes Auto (Unsp spec) [#/Vol] 1.21 10*3/uL 0.83-4.51 [facility] Absolute reticulocyte countO rdered By: HEALTH ASSESSMENT on 12-06-2022 Reticulocytes (Bld) [#/Vol] 0.00 10*3/uL 0-5 [facility] Albumin Elph [Mass/Vol]Order ed By: Lb Sands on 12-06-2022 Albumin [Mass/Vol] 4.1 g/dL 2.9-4.4 [facility] Atypical perinuclear antineu trophil cytoplasmic antibodies measurementOrdered By: Lb Sands on 12-06-2022 Neutrophil cytoplasmic Ab.perinuclear.atypical IF (S) [Titer] <1:20 titer Neg:<1:20 [facility] Comment on above: The atypical pANCA p attern has been observed in asignificant percentage of patients with ulcerative colitis,primary sclerosing cholangitis and autoimmune hepatitis.Performed at: - [facility] [id number] Director: Keron Rogers PhD, Phone: [phone] at: - [facility] [id number] Director: Gin Bass MD, Phone: [phone] Basophil percentageOrdered B y: Lb Sands on 12-06-2022 Basophil percentage > 8.0 AI 0.0-0.9 [facility] Basophil percentage < 0.2 AI 0.0-0.9 [facility] Basophil percentageOrdered B y: HEALTH ASSESSMENT on 12-06-2022 Basophil percentage 3.6 mg/dL 2.5-4.9 [facility] Bilirubin [Mass/Vol] 0.60 mg/dL 0.20-1.00 [facility] Comment on above: For patients on eltr ombopag therapy, use of Dimension [place] TBIL is not recommended. Chloride [Moles/Vol] 108 mmol/L 98-107 [facility] Cholesterol [Mass/Vol] 118 mg/dL <200 [facility] Comment on above: <200 mg/dL Desirable 200-240 mg/dL Borderline >240 mg/dL High Risk Glucose [Mass/Vol] 99 mg/dL 74-106 [facility] LDH [Catalytic activity/Vol] 155 U/L 84-246 [facility] Neutrophils (Bld) [#/Vol] 3.2 10*3/uL 2.0-7.7 [facility] Potassium [Moles/Vol] 3.7 mmol/L 3.5-5.1 [facility] Protein [Mass/Vol] 6.9 g/dL 6.4-8.2 [facility] Sodium [Moles/Vol] 139 mmol/L 136-145 [facility] Triglyceride [Mass/Vol] 69 mg/dL <199 [facility] Comment on above: The drugs N-Acetylcy steine and Metamizole may falsely depress this assay.Serum Triglycerides Reference Interval Normal <150 mg/dL Borderline high 150 - 199 mg/dL High 200 - 499 mg/dL Very High > or = 500 mg/dL WBC (Bld) [#/Vol] 5.0 10*3/uL 4.4-11.0 [facility] Bilirubin Test strip Ql (U)O rdered By: HEALTH ASSESSMENT on 12-06-2022 Bilirubin Ql (U) Negative Negative [facility] Blood erythrocytes count (nu mber/volume)Ordered By: HEALTH ASSESSMENT on 12-06-2022 RBC (Bld) [#/Vol] 4.34 10*6/uL 4.2-5.4 [facility] Blood hemoglobin measurement (mass/volume)Ordered By: HEALTH ASSESSMENT on 12-06-2022 Hemoglobin (Bld) [Mass/Vol] 14.3 g/dL 12.0-15. 0 [facility] Blood platelet mean volumeOr dered By: HEALTH ASSESSMENT on 12-06-2022 Platelet mean volume (Bld) [Entitic vol] 9.3 fL 6.2-12.0 [facility] Determination of erythrocyte mean corpuscular volume (MCV)Ordered By: HEALTH ASSESSMENT on 12-06-2022 MCV (RBC) [Entitic vol] 96.8 fL 81-99 [facility] Direct bilirubinOrdered By: HEALTH ASSESSMENT on 12-06-2022 Bilirubin.direct [Mass/Vol] 0.17 mg/dL 0.00-0.3 0 [facility] Erythrocyte sedimentation ra teOrdered By: Lb Sands on 12-06-2022 ESR (Bld) [Velocity] mm/h 0-30 [facility] Hematocrit Auto (Bld) [Volum e fraction]Ordered By: HEALTH ASSESSMENT on 12-06-2022 Hematocrit (Bld) [Volume fraction] 42.0 % 37-47 [facility] Interpretation of serum or p lasma protein pattern by immunofixation (narrative resultOrdered By: Lb Sands on 12-06-2022 Protein Fractions Immunofixation Rigoberto [Interp] See comment [facility] Comment on above: Result: Not Observed Ketones Test strip Ql (U)Ord ered By: HEALTH ASSESSMENT on 12-06-2022 Ketones Ql (U) Negative Negative [facility] - Chemistry and C hemistry - challengeOrdered By: HEALTH ASSESSMENT on 12-06-2022 ALP [Catalytic activity/Vol] 69 U/L 45-117 [facility] ALT [Catalytic activity/Vol] 35 U/L 13-56 [facility] Cholesterol.total/Cholester ol in HDL [Mass ratio] 2.30 {ratio} [facility] CO2 [Moles/Vol] 29.0 mmol/L 21.0-32.0 [facility] Globulin (S) [Mass/Vol] 2.8 g/dL 2.2-4.2 [facility] Urea nitrogen/Creatinine [Mass ratio] 16.7 mg/mg 10-20 [facility] - Hematology and Cell countsOrdered By: HEALTH ASSESSMENT on 12-06-2022 Erythrocyte distribution width (RBC) [Entitic vol] 40.7 fL 35.1-43.9 [facility] Erythrocyte distribution width (RBC) [Ratio] 11.4 % 11.6-14.6 [facility] MCH (RBC) [Entitic mass] 32.9 pg 27.0-32.0 [facility] Nucleated RBC/100 WBC (Bld) [Ratio] 0 % 0-5 [facility] MCHC Auto (RBC) [Mass/Vol]Or dered By: HEALTH ASSESSMENT on 12-06-2022 MCHC (RBC) [Mass/Vol] 34.0 g/dL 32-36 [facility] Nitrite Test strip Ql (U)Ord ered By: HEALTH ASSESSMENT on 12-06-2022 Nitrite Ql (U) Negative Negative [facility] No Panel InformationOrdered By: Lb Friend on 12-06-2022 Addendum Document Comment . [facility] Comment on above: Protein electrophore sis scan will follow via computer,mail, or broker associate delivery. Centromere B Antibody <0.2 AI 0.0-0.9 [facility] Endomysial IgA Antibody Negative Negative [facility] Immunoglobulin E < 2 IU/mL 6-495 [facility] TURN OUT Antibody <0.2 AI 0.0-0.9 [facility] No Panel InformationOrdered By: HEALTH ASSESSMENT on 12-06-2022 Estimated GFR (MDRD) Amer 92 mL/min >60 [facility] Comment on above: GFR Calc Estimated GFR (MDRD) Non-Af Amer 76 mL/min >60 [facility] Comment on above: Non- GFR Calc Platelets bldOrdered By: [facility] ASSESS[facility] on 12-06-2022 Platelets (Bld) [#/Vol] 234 10*3/uL 150-450 [facility] Protein Test strip Ql (U)Ord ered By: HEALTH ASSESSMENT on 12-06-2022 Protein Ql (U) Negative Negative [facility] Segmented neutrophils/100 WB C Auto (Bld)Ordered By: HEALTH ASSESSMENT on 12-06-2022 Segmented neutrophils/100 WBC (Bld) 64.3 % 47-70 [facility] Serum DNA double strand anti body assay (units/volume)Ordered By: Lb Sands on 12-06-2022 DNA double strand Ab Qn (S) 4 [IU]/mL 0-9 [facility] Comment on above: Negative <5 Equivoca l 5 - 9 Positive >9 Serum Mariela-1 antibody assay (u nits/volume)Ordered By: Lb Sands on 12-06-2022 Mariela-1 extractable nuclear Ab Qn (S) <0.2 AI 0.0-0.9 [facility] Serum Scl-70 extractable nuc lear antibody assay (units/volume)Ordered By: Lb Sands on 12-06-2022 SCL-70 extractable nuclear Ab Qn (S) <0.2 AI 0.0-0.9 [facility] Serum Amador extractable nucl ear antibody detectionOrdered By: Lb Sands on 12-06-2022 Amador extractable nuclear Ab Ql (S) <0.2 AI 0.0-0.9 [facility] Serum [id number] measu rement by electrophoresisOrdered By: Lb Sands on 12-06-2022 Alpha 1 globulin Elph [Mass/Vol] 0.2 g/dL 0.0-0.4 [facility] Alpha 1 globulin Elph [Mass/Vol] 0.6 g/dL 0.4-1.0 [facility] Serum classic neutrophil cyt oplasmic antibody assay (units/volume)Ordered By: Lb Sands on 12-06-2022 Neutrophil cytoplasmic Ab.classic Qn (S) <1:20 titer Neg:<1:20 [facility] Serum globulin measurement ( mass/volume)Ordered By: Lb Sands on 12-06-2022 Globulin (S) [Mass/Vol] 2.4 g/dL 2.2-3.9 [facility] Serum or plasma C reactive p rotein measurement (mass/volume)Ordered By: Lb Sands on 12-06-2022 CRP [Mass/Vol] mg/L 0.0-3.0 [facility] Comment on above: C-Reactive Protein ( CRP) provides useful information for thediagnosis, therapy and monitoring of inflammatory processesand associated diseases. For the evaluation of Relative Riskfor Cardiovascular Disease, a High Sensitivity CRP (HSCRP)should be ordered. Serum or plasma IgA measurem ent (mass/volume)Ordered By: Lb Sands on 12-06-2022 IgA [Mass/Vol] 84 mg/dL 87-352 [facility] Serum or plasma IgG measurem ent (mass/volume)Ordered By: Lb Sands on 12-06-2022 IgG [Mass/Vol] 813 mg/dL [id number] [facility] Serum or plasma IgM measurem ent (mass/volume)Ordered By: Lb Sands on 12-06-2022 IgM [Mass/Vol] 162 mg/dL 26-217 [facility] Serum or plasma albumin nestor urement (mass/volume)Ordered By: HEALTH ASSESSMENT on 12-06-2022 Albumin [Mass/Vol] 4.1 g/dL 3.2-5.0 [facility] Serum or plasma albumin/glob ulin mass ratioOrdered By: HEALTH ASSESSMENT on 12-06-2022 Albumin/Globulin [Mass ratio] 1.5 {ratio} 0.9-2.4 [facility] Serum or plasma beta globuli n measurement by electrophoresis (mass/volume)Ordered By: Lb Sands on 12-06-2022 Beta globulin Elph [Mass/Vol] 0.7 g/dL 0.7-1.3 [facility] Serum or plasma calcium nestor urement (mass/volume)Ordered By: HEALTH ASSESSMENT on 12-06-2022 Calcium [Mass/Vol] 9.0 mg/dL 8.5-10.1 [facility] Serum or plasma cholesterol in HDL measurement (mass/volume)Ordered By: HEALTH ASSESSMENT on 12-06-2022 Cholesterol in HDL [Mass/Vol] 52 mg/dL >40 [facility] Comment on above: The drugs N-Acetylcy steine and Metamizole may falsely depress this assay. Reference Range HDL <40 mg/dL Low HDL Cholesterol HDL >or= 60 mg/dL High HDL Cholesterol Serum or plasma cholesterol in VLDL measurement (mass/volume)Ordered By: HEALTH ASSESSMENT on 12-06-2022 Cholesterol in VLDL [Mass/Vol] 14 mg/dL 5-40 [facility] Serum or plasma creatinine m easurement (mass/volume)Ordered By: HEALTH ASSESSMENT on 12-06-2022 Creatinine [Mass/Vol] 0.84 mg/dL 0.55-1.02 [facility] Comment on above: The validity of the calculated GFR & GFRAA in patients over 70 years has not been determined. Clinical correlation is essential. Serum or plasma gamma globul in measurement by electrophoresis (mass/volume)Ordered By: Lb Sands on 12-06-2022 Gamma globulin Elph [Mass/Vol] 0.9 g/dL 0.4-1.8 [facility] Serum or plasma immunoelectr ophoresis interpretation (nominal result)Ordered By: Lb Sands on 12-06-2022 Interpretation IEP [Interp] Comment . [facility] Comment on above: No monoclonality det ected. Serum or plasma low density lipoprotein (LDL) cholesterol measurement (mass/volume)Ordered By: HEALTH ASSESSMENT on 12-06-2022 Cholesterol in LDL [Mass/Vol] 52 mg/dL 0-130 [facility] Serum or plasma urea nitroge n measurement (mass/volume)Ordered By: HEALTH ASSESSMENT on 12-06-2022 Urea nitrogen [Mass/Vol] 14 mg/dL 7-18 [facility] Serum or plasma uric acid me asurement (mass/volume)Ordered By: HEALTH ASSESSMENT on 12-06-2022 Urate [Mass/Vol] 4.8 mg/dL 2.6-6.0 [facility] Comment on above: The drugs N-Acetylcy steine and Metamizole may falsely depress this assay. Serum perinuclear neutrophil cytoplasmic antibody titer by immunofluorescenceOrdered By: Lb Sands on 12-06-2022 Neutrophil cytoplasmic Ab.perinuclear IF (S) [Titer] <1:20 titer Neg:<1:20 [facility] Comment on above: The presence of posi tive fluorescence exhibiting P-ANCA orC-ANCA patterns alone is not specific for the diagnosis ofWegener's Granulomatosis (WG) or microscopic polyangiitis.Decisions about treatment should not be based solely onANCA IFA results. The [employer] ANCA [employer] Consensusrecommends follow up testing of positive sera with both ME-3 and MPO-ANCA enzyme immunoassays. As many as 5% serumsamples are positive only by EIA. Ref. AM J Clin [id number];111:507-513. Serum tissue transglutaminas e IgA antibody assay (units/volume)Ordered By: Lb Sands on 12-06-2022 tTG IgA Qn (S) <2 U/mL 0-3 [facility] Comment on above: Negative 0 - 3 Weak Positive 4 - 10 Positive >10 Tissue Transglutaminase (tTG) has been identified as the endomysial antigen. Studies have demonstr- ated that endomysial IgA antibodies have over 99% specificity for gluten sensitive enteropathy. Thin prep Papanicolaou smear with manual screeningOrdered By: Lb Friend on 12-06-2022 Thin prep Papanicolaou smear with manual screening 1.8 0.7-1.7 [facility] Thin prep Papanicolaou smear with manual screeningOrdered By: HEALTH ASSESSMENT on 12-06-2022 Thin prep Papanicolaou smear with manual screening 25 U/L 15-37 [facility] Thin prep Papanicolaou smear with manual screening 2 5-15 [facility] Total protein bloodOrdered B y: Lb Friend on 12-06-2022 Protein [Mass/Vol] 6.5 g/dL 6.0-8.5 [facility] Urine blood detectionOrdered By: HEALTH ASSESSMENT on 12-06-2022 RBC Ql (U) 10 /ul Negative [facility] Urine clarityOrdered By: A LT ASSESSMENT on 12-06-2022 Clarity (U) Clear Clear [facility] Urine color determinationOrd ered By: HEALTH ASSESSMENT on 12-06-2022 Color (U) Yellow Yellow [facility] Urine glucose detectionOrder ed By: HEALTH ASSESSMENT on 12-06-2022 Glucose Ql (U) Normal mg/dl Normal [facility] Urine leukocyte esterase det ection by dipstickOrdered By: HEALTH ASSESSMENT on 12-06-2022 Leukocyte esterase Test strip Ql (U) Negative Negative [facility] Urine pHOrdered By: HEALTH A SSESSMENT on 12-06-2022 pH (U) 6.0 [pH] 5.0 - 8.0 [facility] Urine specific gravity measu rementOrdered By: HEALTH ASSESSMENT on 12-06-2022 Specific gravity (U) [Rel density] 1.020 1.002-1.03 0 [facility] Urobilinogen Auto test strip Ql (U)Ordered By: HEALTH ASSESSMENT on 12-06-2022 Urobilinogen Ql (U) Normal mg/dl Normal [facility] BUN CREAon 07-08-2022 Creatinine [Mass/Vol] 0.79 mg/dL 0.50 - 1.20 mg/dL [facility] GFR/1.73 sq M.predicted CKD-EPI (S/P/Bld) [Vol rate/Area] 90 - PINF [facility] Comment on above: Reported eGFR is bas ed on the CKD-EPI 2020 equation using creatinine, age, and sex. Urea nitrogen [Mass/Vol] 12 mg/dL 7 - 25 mg/dL [facility] Urea nitrogen/Creatinine [Mass ratio] 15 [facility] C[facility] COMPLEMENTon 07-08-2022 Complement C3 [Mass/Vol] 109 mg/dL 87 - 200 mg/dL [facility] C4 COMPLEMENTon 07-08-2022 Complement C4 [Mass/Vol] 22 mg/dL 18 - 52 mg/dL [facility] HEPATIC FUNCTION PANELon Albumin [Mass/Vol] 4.4 g/dL 3.5 - 5.0 g/dL [facility] ALP [Catalytic activity/Vol] 66 U/L 32 - 126 U/L [facility] ALT [Catalytic activity/Vol] 21 U/L 9 - 48 U/L [facility] AST [Catalytic activity/Vol] 23 U/L 10 - 39 U/L [facility] Bilirubin [Mass/Vol] 0.5 mg/[facility] Bilirubin.direct [Mass/Vol] 0.1 mg/dL NINF - 0.3 mg/dL [facility] Protein [Mass/Vol] 6.4 g/dL 6.4 - 8.3 g/dL [facility] No Panel Informationon 07-08 Interpretation and review of laboratory results Normal [facility] URINE PROTEIN/CREA RATIO, RA NDOMon 07-08-2022 Creatinine (24H U) [Mass/Vol] 67.03 mg/dL [facility] Protein Unsp time (U) [Mass/Vol] 6 mg/dL [facility] Protein/Creatinine (U) [Mass ratio] 0.090 mg/g [facility] Absolute lymphocyte counton 01-06-2022 Lymphocytes Auto (Unsp spec) [#/Vol] 1.20 10*3/uL 0.83-4.51 [facility] Work Phone: Absolute reticulocyte counto n 01-06-2022 Reticulocytes (Bld) [#/Vol] 0.00 10*3/uL 0-5 [facility] Work Phone: Basophil percentageon 2021 Basophil percentage 3.0 mg/dL 2.5-4.9 [facility] Work Phone: Bilirubin [Mass/Vol] 0.60 mg/dL 0.20-1.00 [facility] Work Phone: Comment on above: For patients on eltr ombopag therapy, use of Dimension [place] TBIL is not recommended. Chloride [Moles/Vol] 109 mmol/L 98-107 [facility] Work Phone: Cholesterol [Mass/Vol] 102 mg/dL <200 [facility] Work Phone: Comment on above: <200 mg/dL Desirable 200-240 mg/dL Borderline >240 mg/dL High Risk Glucose [Mass/Vol] 92 mg/dL 74-106 [facility] Work Phone: Neutrophils (Bld) [#/Vol] 3.6 10*3/uL 2.0-7.7 [facility] Work Phone: Potassium [Moles/Vol] 3.9 mmol/L 3.5-5.1 [facility] Work Phone: Protein [Mass/Vol] 6.6 g/dL 6.4-8.2 [facility] Work Phone: Sodium [Moles/Vol] 141 mmol/L 136-145 [facility] Work Phone: Triglyceride [Mass/Vol] 72 mg/dL <199 [facility] Work Phone: [phone] Comment on above: The drugs N-Acetylcy steine and Metamizole may falsely depress this assay.Serum Triglycerides Reference Interval Normal <150 mg/dL Borderline high 150 - 199 mg/dL High 200 - 499 mg/dL Very High > or = 500 mg/dL WBC (Bld) [#/Vol] 5.5 10*3/uL 4.4-11.0 [facility] Work Phone: Bilirubin Test strip Ql (U)o n 01-06-2022 Bilirubin Ql (U) Negative Negative [facility] Work Phone: Blood erythrocytes count (nu mber/volume)on 01-06-2022 RBC (Bld) [#/Vol] 4.11 10*6/uL 4.2-5.4 [facility] Work Phone: Blood hemoglobin measurement (mass/volume)on 01-06-2022 Hemoglobin (Bld) [Mass/Vol] 13.5 g/dL 12.0-15. 0 [facility] Work Phone: Blood platelet mean volumeon 01-06-2022 Platelet mean volume (Bld) [Entitic vol] 9.6 fL 6.2-12.0 [facility] Work Phone: Determination of erythrocyte mean corpuscular volume (MCV)on 01-06-2022 MCV (RBC) [Entitic vol] 96.1 fL 81-99 [facility] Work Phone: Direct bilirubinon Bilirubin.direct [Mass/Vol] 0.18 mg/dL 0.00-0.3 0 [facility] Work Phone: Hematocrit Auto (Bld) [Volum e fraction]on 01-06-2022 Hematocrit (Bld) [Volume fraction] 39.5 % 37-47 [facility] Work Phone: Ketones Test strip Ql (U)on 01-06-2022 Ketones Ql (U) Negative Negative [facility] Work Phone: Laboratory - Chemistry and C hemistry - challengeon 01-06-2022 ALP [Catalytic activity/Vol] 60 U/L 45-117 [facility] Work Phone: ALT [Catalytic activity/Vol] 31 U/L 13-56 [facility] Work Phone: [phone] Cholesterol.total/Cholester ol in HDL [Mass ratio] 2.10 {ratio} [facility] Work Phone: [phone] CO2 [Moles/Vol] 27.0 mmol/L 21.0-32.0 [facility] Work Phone: [phone] Globulin (S) [Mass/Vol] 2.9 g/dL 2.2-4.2 [facility] Work Phone: [phone] Urea nitrogen/Creatinine [Mass ratio] 17.8 mg/mg 10-20 [facility] Work Phone: [phone] Laboratory - Hematology and Cell countson 01-06-2022 Erythrocyte distribution width (RBC) [Entitic vol] 41.3 fL 35.1-43.9 [facility] Work Phone: [phone] Erythrocyte distribution width (RBC) [Ratio] 11.9 % 11.6-14.6 [facility] Work Phone: [phone] MCH (RBC) [Entitic mass] 32.8 pg 27.0-32.0 [facility] Work Phone: Nucleated RBC/100 WBC (Bld) [Ratio] 0 % 0-5 [facility] Work Phone: MCHC Auto (RBC) [Mass/Vol]on 01-06-2022 MCHC (RBC) [Mass/Vol] 34.2 g/dL 32-36 [facility] Work Phone: Nitrite Test strip Ql (U)on 01-06-2022 Nitrite Ql (U) Negative Negative [facility] Work Phone: No Panel Informationon 01-06 Estimated GFR (MDRD) Amer 118 mL/min >60 [facility] Work Phone: [phone] Comment on above: GFR Calc Estimated GFR (MDRD) Non-Af Amer 97 mL/min >60 [facility] Work Phone: Comment on above: Non- GFR Calc Platelets bldon 01-06-2022 Platelets (Bld) [#/Vol] 253 10*3/uL 150-450 [facility] Work Phone: Protein Test strip Ql (U)on 01-06-2022 Protein Ql (U) Negative Negative [facility] Work Phone: [phone] Segmented neutrophils/100 WB C Auto (Bld)on 01-06-2022 Segmented neutrophils/100 WBC (Bld) 65.3 % 47-70 [facility] Work Phone: Serum or plasma albumin nestor urement (mass/volume)on 01-06-2022 Albumin [Mass/Vol] 3.7 g/dL 3.2-5.0 [facility] Work Phone: Serum or plasma albumin/glob ulin mass ratioon 01-06-2022 Albumin/Globulin [Mass ratio] 1.3 {ratio} 0.9-2.4 [facility] Work Phone: [phone] Serum or plasma calcium nestor urement (mass/volume)on 01-06-2022 Calcium [Mass/Vol] 8.8 mg/dL 8.5-10.1 [facility] Work Phone: Serum or plasma cholesterol in HDL measurement (mass/volume)on 01-06-2022 Cholesterol in HDL [Mass/Vol] 49 mg/dL >40 [facility] Work Phone: Comment on above: The drugs N-Acetylcy steine and Metamizole may falsely depress this assay. Reference Range HDL <40 mg/dL Low HDL Cholesterol HDL >or= 60 mg/dL High HDL Cholesterol Serum or plasma cholesterol in VLDL measurement (mass/volume)on 01-06-2022 Cholesterol in VLDL [Mass/Vol] 14 mg/dL 5-40 [facility] Work Phone: [phone] Serum or plasma creatinine m easurement (mass/volume)on 01-06-2022 Creatinine [Mass/Vol] 0.68 mg/dL 0.55-1.02 [facility] Work Phone: Comment on above: The validity of the calculated GFR & GFRAA in patients over 70 years has not been determined. Clinical correlation is essential. Serum or plasma low density lipoprotein (LDL) cholesterol measurement (mass/volume)on 01-06-2022 Cholesterol in LDL [Mass/Vol] 39 mg/dL 0-130 [facility] Work Phone: Serum or plasma urea nitroge n measurement (mass/volume)on 01-06-2022 Urea nitrogen [Mass/Vol] 12 mg/dL 7-18 [facility] Work Phone: Serum or plasma uric acid me asurement (mass/volume)on 01-06-2022 Urate [Mass/Vol] 4.7 mg/dL 2.6-6.0 [facility] Work Phone: Comment on above: The drugs N-Acetylcy steine and Metamizole may falsely depress this assay. Thin prep Papanicolaou smear with manual screeningon 01-06-2022 Thin prep Papanicolaou smear with manual screening 26 U/L 15-37 [facility] Work Phone: Thin prep Papanicolaou smear with manual screening 5 5-15 [facility] Work Phone: Thin prep Papanicolaou smear with manual screening 134 U/L 84-246 [facility] Work Phone: Urine blood detectionon 12-11 RBC Ql (U) 10 /ul Negative [facility] Work Phone: [phone] Urine clarityon 01-06-2022 Clarity (U) Clear Clear [facility] Work Phone: Urine color determinationon 01-06-2022 Color (U) Yellow Yellow [facility] Work Phone: Urine glucose detectionon Glucose Ql (U) Normal mg/dl Normal [facility] Work Phone: Urine leukocyte esterase det ection by dipstickon 01-06-2022 Leukocyte esterase Test strip Ql (U) Negative Negative [facility] Work Phone: Urine pHon 01-06-2022 pH (U) 6.0 [pH] 5.0 - 8.0 [facility] Work Phone: Urine specific gravity measu rementon 01-06-2022 Specific gravity (U) [Rel density] 1.025 1.002-1.03 0 [facility] Work Phone: Urobilinogen Auto test strip Ql (U)on 01-06-2022 Urobilinogen Ql (U) Normal mg/dl Normal [facility] Work Phone: BUN CREAon 09-29-2021 Creatinine [Mass/Vol] 0.77 mg/dL 0.50 - 1.20 mg/dL [facility] GFR/1.73 sq M.predicted CKD-EPI (S/P/Bld) [Vol rate/Area] >90 >=60 mL/min/1.7 3m2 [facility] Comment on above: Reported eGFR is bas ed on the CKD-EPI 2020 equation using creatinine, age, and sex. Urea nitrogen [Mass/Vol] 12 mg/dL 7 - 25 [facility] Urea nitrogen/Creatinine [Mass ratio] 16 mg/mg [facility] C3 COMPLEMENTon 09-29-2021 Complement C3 [Mass/Vol] 124 mg/dL 87 - 200 mg/[facility] C4 COMPLEMENTon 09-29-2021 Complement C4 [Mass/Vol] 25 mg/dL 18 - 52 mg/dL [facility] HEPATIC FUNCTION PANELon Albumin [Mass/Vol] 4.5 g/dL 3.5 - 5.0 g/dL [facility] ALP [Catalytic activity/Vol] 71 U/L 32 - 126 U/L [facility] ALT [Catalytic activity/Vol] 21 U/L 9 - 48 U/L [facility] AST [Catalytic activity/Vol] 24 U/L 10 - 39 U/L [facility] Bilirubin [Mass/Vol] 0.8 mg/dL <1.5 [facility] Bilirubin.direct [Mass/Vol] 0.2 mg/dL <0.3 [facility] Interpretation and review of laboratory results Normal [facility] Protein [Mass/Vol] 6.7 g/dL 6.4 - 8.3 g/dL [facility] No Panel Informationon 09-29 Interpretation and review of laboratory results Normal [facility] Absolute lymphocyte counton 09-15-2021 Lymphocytes Auto (Unsp spec) [#/Vol] 1.10 10*3/uL 0.83-4.51 [facility] Work Phone: Basophil percentageon 2021 Basophil percentage > 8.0 [facility] Work Phone: Basophil percentage < 0.2 [facility] Work Phone: Basophils/100 WBC (Bld) 0.7 % 0-1 [facility] Work Phone: Bilirubin [Mass/Vol] 0.50 mg/dL 0.20-1.00 [facility] Work Phone: Comment on above: For patients on eltr ombopag therapy, use of Dimension [place] TBIL is not recommended. Chloride [Moles/Vol] 107 mmol/L 98-107 [facility] Work Phone: Eosinophils/100 WBC (Bld) 2.8 % 0-5 [facility] Work Phone: Glucose [Mass/Vol] 102 mg/dL 74-106 [facility] Work Phone: Comment on above: Fasting Glucose resu lt from 100 to 125 mg/dL suggests IMPAIRED HOMEOSTASIS per A.D.A. criteria. Neutrophils (Bld) [#/Vol] 3.8 10*3/uL 2.0-7.7 [facility] Work Phone: Neutrophils/100 WBC (Bld) 67.5 % 47-70 [facility] Work Phone: Potassium [Moles/Vol] 3.5 mmol/L 3.5-5.1 [facility] Work Phone: Protein [Mass/Vol] 6.6 g/dL 6.4-8.2 [facility]: Sodium [Moles/Vol] 138 mmol/L 136-145 [facility] Work Phone: WBC (Bld) [#/Vol] 5.6 10*3/uL 4.4-11.0 [facility] Work Phone: Blood erythrocytes count (nu mber/volume)on 09-15-2021 RBC (Bld) [#/Vol] 4.12 10*6/uL 4.2-5.4 [facility] Work [facility]: Blood hemoglobin measurement (mass/volume)on 09-15-2021 Hemoglobin (Bld) [Mass/Vol] 13.4 g/dL 12.0-15. 0 [facility] Work Phone: Blood lymphocytes/100 leukoc yteson 09-15-2021 Lymphocytes/100 WBC (Bld) 19.5 % 19-41 [facility] Work Phone: Blood monocytes/100 leukocyt eson 09-15-2021 Monocytes/100 WBC (Bld) 9.1 % 0-10 [facility] Work Phone: Blood platelet mean volumeon 09-15-2021 Platelet mean volume (Bld) [Entitic vol] 9.3 fL 6.2-12.0 [facility] Work Phone: Determination of erythrocyte mean corpuscular volume (MCV)on 09-15-2021 MCV (RBC) [Entitic vol] 95.4 fL 81-99 [facility] Work Phone: Erythrocyte sedimentation ra reid 09-15-2021 ESR (Bld) [Velocity] 3 mm/h 0-[facility] Work [facility]: Hematocrit Auto (Bld) [Volum e fraction]on 09-15-2021 Hematocrit (Bld) [Volume fraction] 39.3 % 37-47 [facility] Work Phone: [phone] Laboratory - Chemistry and C hemistry - challengeon 09-15-2021 ALP [Catalytic activity/Vol] 61 U/L 45-117 [facility] Work Phone: [phone] ALT [Catalytic activity/Vol] 30 U/L 13-56 [facility] Work Phone: [phone] CO2 [Moles/Vol] 26.0 mmol/L 21.0-32.0 [facility] Work Phone: [phone] Globulin (S) [Mass/Vol] 2.8 g/dL 2.2-4.2 [facility] Work Phone: [phone] Urea nitrogen/Creatinine [Mass ratio] 16.8 mg/mg 10-20 [facility] Work Phone: [phone] Laboratory - Hematology and Cell countson 09-15-2021 Erythrocyte distribution width (RBC) [Entitic vol] 40.0 fL 35.1-43.9 [facility] Work Phone: [phone] Erythrocyte distribution width (RBC) [Ratio] 11.5 % 11.6-14.6 [facility] Work Phone: [phone] Immature granulocytes/100 WBC (Bld) 0.400 % 0.0-0.9 [facility] Work Phone: [phone] Comment on above: IG% - Immature Granu locytes (promyelocytes, myelocytes and metamyelocytes) > 1% indicates that a LEFT SHIFT is Present. MCH (RBC) [Entitic mass] 32.5 pg 27.0-32.0 [facility] Work Phone: [phone] Nucleated RBC/100 WBC (Bld) [Ratio] 0 % 0-5 [facility] Work Phone: [phone] MCHC Auto (RBC) [Mass/Vol]on 09-15-2021 MCHC (RBC) [Mass/Vol] 34.1 g/dL 32-36 [facility] Work Phone: [phone] No Panel Informationon 09-15 Centromere B Antibody <0.2 [facility] [place] Work Phone: Endomysial IgA Antibody Negative Negative [facility] Work Phone: Estimated GFR (MDRD) Amer 101 mL/min >60 [facility] Work Phone: Comment on above: GFR Calc Estimated GFR (MDRD) Non-Af Amer 83 mL/min >60 [facility] Work Phone: Comment on above: Non- GFR Calc TURN OUT Antibody <0.2 [facility] Work Phone: Platelets bldon 09-15-2021 Platelets (Bld) [#/Vol] 225 10*3/uL 150-450 [facility] Work Phone: Serum DNA double strand anti body assay (units/volume)on 09-15-2021 DNA double strand Ab Qn (S) 6 [IU]/mL [facility] Work Phone: Comment on above: Negative <5 Equivoca l 5 - 9 Positive >9 Serum IgA measurement (units /volume)on 09-15-2021 IgA Qn (S) 84 mg/dL [facility] Work Phone: Serum Mariela-1 antibody assay (u nits/volume)on 09-15-2021 Mariela-1 extractable nuclear Ab Qn (S) <0.2 [facility] Work Phone: Serum Scl-70 extractable nuc lear antibody assay (units/volume)on 09-15-2021 SCL-70 extractable nuclear Ab Qn (S) <0.2 [facility] Work Phone: Serum Amador extractable nucl ear antibody detectionon 09-15-2021 Amador extractable nuclear Ab Ql (S) <0.2 [facility] Work Phone: Serum or plasma C reactive p rotein measurement (mass/volume)on 09-15-2021 CRP [Mass/Vol] mg/L 0.0-3.0 [facility] Work Phone: Comment on above: C-Reactive Protein ( CRP) provides useful information for thediagnosis, therapy and monitoring of inflammatory processesand associated diseases. For the evaluation of Relative Riskfor Cardiovascular Disease, a High Sensitivity CRP (HSCRP)should be ordered. Serum or plasma albumin nestor urement (mass/volume)on 09-15-2021 Albumin [Mass/Vol] 3.8 g/dL 3.2-5.0 [facility] Work Phone: Serum or plasma albumin/glob ulin mass ratioon 09-15-2021 Albumin/Globulin [Mass ratio] 1.4 {ratio} 0.9-2.4 [facility] Work Phone: Serum or plasma calcium nestor urement (mass/volume)on 09-15-2021 Calcium [Mass/Vol] 8.8 mg/dL 8.5-10.1 [facility] Work Phone: Serum or plasma creatinine m easurement (mass/volume)on 09-15-2021 Creatinine [Mass/Vol] 0.77 mg/dL 0.55-1.02 [facility] Work Phone: Comment on above: The validity of the calculated GFR & GFRAA in patients over 70 years has not been determined. Clinical correlation is essential. Serum or plasma urea nitroge n measurement (mass/volume)on 09-15-2021 Urea nitrogen [Mass/Vol] 13 mg/dL 7-18 [facility] Work Phone: Serum tissue transglutaminas e IgA antibody assay (units/volume)on 09-15-2021 tTG IgA Qn (S) <2 U/mL [facility] Work Phone: Comment on above: Negative 0 - 3 Weak Positive 4 - 10 Positive >10 Tissue Transglutaminase (tTG) has been identified as the endomysial antigen. Studies have demonstr- ated that endomysial IgA antibodies have over 99% specificity for gluten sensitive enteropathy. Thin prep Papanicolaou smear with manual screeningon 09-15-2021 Thin prep Papanicolaou smear with manual screening 21 U/L 15-37 [facility] Work Phone: Thin prep Papanicolaou smear with manual screening 5 5-15 [facility] Work Phone: [phone] Thin prep Papanicolaou smear with manual screening 143 U/L 84-246 [facility] Work Phone: Basophil percentageon 2021 Bilirubin [Mass/Vol] 0.60 mg/dL 0.20-1.00 [facility] Work Phone: [phone] Comment on above: For patients on eltr ombopag therapy, use of Dimension [place] TBIL is not recommended. Cholesterol [Mass/Vol] 109 mg/dL <200 [facility] Work Phone: [phone] Comment on above: <200 mg/dL Desirable 200-240 mg/dL Borderline >240 mg/dL High Risk Protein [Mass/Vol] 6.6 g/dL 6.4-8.2 [facility] Work Phone: [phone] Triglyceride [Mass/Vol] 83 mg/dL [facility] Work Phone: [phone] Comment on above: The drugs N-Acetylcy steine and Metamizole may falsely depress this assay.Serum Triglycerides Reference Interval Normal <150 mg/dL Borderline high 150 - 199 mg/dL High 200 - 499 mg/dL Very High > or = 500 mg/dL Direct bilirubinon 2 Bilirubin.direct [Mass/Vol] 0.19 mg/dL 0.00-0.3 0 [facility] Work Phone: [phone] Laboratory - Chemistry and C hemistry - challengeon 07-28-2021 ALP [Catalytic activity/Vol] 64 U/L 45-117 [facility] Work Phone: [phone] ALT [Catalytic activity/Vol] 27 U/L 13-56 [facility] Work Phone: [phone] Globulin (S) [Mass/Vol] 2.7 g/dL 2.2-4.2 [facility] Work Phone: [phone] Serum or plasma albumin nestor urement (mass/volume)on 07-28-2021 Albumin [Mass/Vol] 3.9 g/dL 3.2-5.0 [facility] Work Phone: [phone] Serum or plasma cholesterol in HDL measurement (mass/volume)on 07-28-2021 Cholesterol in HDL [Mass/Vol] 52 mg/dL [facility] Work Phone: Comment on above: The drugs N-Acetylcy steine and Metamizole may falsely depress this assay. Reference Range HDL <40 mg/dL Low HDL Cholesterol HDL >or= 60 mg/dL High HDL Cholesterol Serum or plasma cholesterol in VLDL measurement (mass/volume)on 07-28-2021 Cholesterol in VLDL [Mass/Vol] 17 mg/dL 5-40 [facility] Work Phone: Serum or plasma low density lipoprotein (LDL) cholesterol measurement (mass/volume)on 07-28-2021 Cholesterol in LDL [Mass/Vol] 40 mg/dL 0-130 [facility] Work Phone: Thin prep Papanicolaou smear with manual screeningon 07-28-2021 Thin prep Papanicolaou smear with manual screening 22 U/L 15-37 [facility] Work Phone: Erythrocyte sedimentation ra reid 07-08-2021 ESR (Bld) [Velocity] 3 mm/h 0-30 [facility] Work Phone: No Panel Informationon 07-08 Stool Calprotectin 23 ug/g [facility] Work Phone: Comment on above: Concentration Interp retation Follow-Up<16 - 50 ug/g Normal None>50 -120 ug/g Borderline Re-evaluate in 4-6 weeks >120 ug/g Abnormal Repeat as clinically indicatedPerformed at: [facility] [id number] [place], [place] [id number] Director: Gin Bass MD, Phone: [phone] Serum or plasma C reactive p rotein measurement (mass/volume)on 07-08-2021 CRP [Mass/Vol] mg/L 0.0-3.0 [facility] Work Phone: Comment on above: C-Reactive Protein ( CRP) provides useful information for thediagnosis, therapy and monitoring of inflammatory processesand associated diseases. For the evaluation of Relative Riskfor Cardiovascular Disease, a High Sensitivity CRP (HSCRP)should be ordered. Absolute lymphocyte counton 05-10-2021 Lymphocytes Auto (Unsp spec) [#/Vol] 1.46 10*3/uL 0.83-4.51 [facility] Work Phone: Basophil percentageon 2021 Basophils/100 WBC (Bld) 0.7 % 0-1 [facility] Work Phone: Chloride [Moles/Vol] 109 mmol/L 98-107 [facility]: Eosinophils/100 WBC (Bld) 3.0 % 0-5 [facility] Work Phone: Glucose [Mass/Vol] 105 mg/dL 74-106 [facility] Work Phone: Comment on above: Fasting Glucose resu lt from 100 to 125 mg/dL suggests IMPAIRED HOMEOSTASIS per A.D.A. criteria. Neutrophils (Bld) [#/Vol] 3.4 10*3/uL 2.0-7.7 [facility] Work Phone: Neutrophils/100 WBC (Bld) 60.0 % 47-70 [facility] Work Phone: Potassium [Moles/Vol] 3.4 mmol/L 3.5-5.1 [facility] Work Phone: Sodium [Moles/Vol] 142 mmol/L 136-145 [facility] Work Phone: WBC (Bld) [#/Vol] 5.7 10*3/uL 4.4-11.0 [facility] Work Phone: Blood erythrocytes count (nu mber/volume)on 05-10-2021 RBC (Bld) [#/Vol] 4.37 10*6/uL 4.2-5.4 [facility] Work Phone: Blood hemoglobin measurement (mass/volume)on 05-10-2021 Hemoglobin (Bld) [Mass/Vol] 14.1 g/dL 12.0-15. 0 [facility] Work Phone: Blood lymphocytes/100 leukoc yteson 05-10-2021 Lymphocytes/100 WBC (Bld) 25.6 % 19-41 [facility] Work Phone: Blood monocytes/100 leukocyt eson 05-10-2021 Monocytes/100 WBC (Bld) 10.5 % 0-10 [facility] Work Phone: Blood platelet mean volumeon 05-10-2021 Platelet mean volume (Bld) [Entitic vol] 9.2 fL 6.2-12.0 [facility] Work Phone: Determination of erythrocyte mean corpuscular volume (MCV)on 05-10-2021 MCV (RBC) [Entitic vol] 93.6 fL 81-99 [facility] Work Phone: Hematocrit Auto (Bld) [Volum e fraction]on 05-10-2021 Hematocrit (Bld) [Volume fraction] 40.9 % 37-47 [facility] Work Phone: [phone] INR in Blood by Coagulation assayon 05-10-2021 INR Coag (Bld) [Relative time] 0.9 {INR} [facility] Work Phone: Laboratory - Chemistry and C hemistry - challengeon 05-10-2021 CO2 [Moles/Vol] 26.0 mmol/L 21.0-32.0 [facility] Work Phone: Magnesium [Mass/Vol] 2.4 mg/dL 1.6-2.6 [facility] Work Phone: Urea nitrogen/Creatinine [Mass ratio] 14.9 mg/mg 10-20 [facility] Work Phone: Laboratory - Coagulationon 0 05-10-2021 aPTT Coag (Bld) [Time] 29.6 s 24.1-36.2 [facility] Work Phone: PT Coag (PPP) [Time] 11.8 s 11.7-14.9 [facility] Work Phone: Laboratory - Hematology and Cell countson 05-10-2021 Erythrocyte distribution width (RBC) [Entitic vol] 38.7 fL 35.1-43.9 [facility] Work Phone: [phone] Erythrocyte distribution width (RBC) [Ratio] 11.3 % 11.6-14.6 [facility] Work Phone: [phone] Immature granulocytes/100 WBC (Bld) 0.200 % 0.0-0.9 [facility] Work Phone: [phone] Comment on above: IG% - Immature Granu locytes (promyelocytes, myelocytes and metamyelocytes) > 1% indicates that a LEFT SHIFT is Present. MCH (RBC) [Entitic mass] 32.3 pg 27.0-32.0 [facility] Work Phone: [phone] Nucleated RBC/100 WBC (Bld) [Ratio] 0 % 0-5 [facility] Work Phone: [phone] MCHC Auto (RBC) [Mass/Vol]on 05-10-2021 MCHC (RBC) [Mass/Vol] 34.5 g/dL 32-36 [facility] Work Phone: [phone] No Panel Informationon 05-10 Troponin I High Sensitivity 5 pg/mL 3.0-54.0 [facility] Work Phone: [phone] Comment on above: Please Note: New Nadia t Units and Gender Specific Reference Ranges. For more information see Policy Stat Procedure [place] High Sensitivity Troponin (TNIH) and attachments. Estimated Creatinine Clearance Calc 62.78 ml/min [facility] Work Phone: [phone] Estimated GFR (MDRD) Amer 97 mL/min >60 [facility] Work Phone: [phone] Comment on above: GFR Calc Estimated GFR (MDRD) Non-Af Amer 80 mL/min >60 [facility] Work Phone: [phone] Comment on above: Non- GFR Calc Platelets bldon 05-10-2021 Platelets (Bld) [#/Vol] 264 10*3/uL 150-450 [facility] Work Phone: [phone] Serum or plasma calcium nestor urement (mass/volume)on 05-10-2021 Calcium [Mass/Vol] 9.9 mg/dL 8.5-10.1 [facility] Work Phone: Serum or plasma creatinine m easurement (mass/volume)on 05-10-2021 Creatinine [Mass/Vol] 0.80 mg/dL 0.55-1.02 [facility] [place] Work Phone: Comment on above: The validity of the calculated GFR & GFRAA in patients over 70 years has not been determined. Clinical correlation is essential. Serum or plasma urea nitroge n measurement (mass/volume)on 05-10-2021 Urea nitrogen [Mass/Vol] 12 mg/dL 7-18 [facility] Work Phone: Thin prep Papanicolaou smear with manual screeningon 05-10-2021 Thin prep Papanicolaou smear with manual screening 7 5-15 [facility] Work Phone: PROGRESSon 05-15-2019 PROGRESS HNO ID: [id number] Author: Pedro Luis Angeles (Od) Ryan MATIAS Service: ? Author Type: COMPUTER SCIENCE PROFESSOR Type: Progress Notes Filed: 05/15/2019 9:23 AM Note Text: Assessment and Plan H04.123 Chronically dry eyes, bilateral (primary encounter diagnosis) Comment: Recommend dry eye treatment. Start use of Systane Complete and Refresh Canadensis-3 drops (either) 1 gt both eyes four [...] components. Pedro Luis Davis II, OD Normal [facility] CNCOon 04-20-2019 CNCO Letter Text Normal [facility] PROGRESSon 01-16-2019 PROGRESS HNO ID: [id number] Author: Pedro Luis Angeles (Od) Ryan MATIAS Service: ? Author Type: COMPUTER SCIENCE PROFESSOR Type: Progress Notes Filed: 01/16/2019 11:41 AM [...] components. Pedro Luis [facility] II, OD [facility] Telephone (ASWSTR) AMALIA RICHARDSON ([id number]) 1970 F Date Time Provider Department 05/22/18 XIOMARA GONZALEZ ASTR During your visit today, we recorded the following information about you: Monalisa Arboleda, RN, RN 05/22/2018 11:52 AM Signed Patient is due for a follow up colonoscopy for history of chronic ulcerative colitis. Last scope was with Dr. Khan in June 2015 under MAC anesthesia. Report is scanned into [employer]. Patient appears healthy and could be open [...] and is up to date on everything Chanda Arboleda RN, RN 06/05/2018 1:15 PM Signed Jarrod, Is this something you can [facility] so can be updated appropriately. Thank you Monalisa Arboleda RN Allergies As of Date: 05/22/2018 Noted Allergy Reaction NAPROXEN 03/11/2005 8 - GI Upset SULFA (SULFONAMIDE ANTIBIOTICS) 03/11/2005 11 - Vomiting Comments: also has tachycardia TRAMADOL 09/11/2013 14 - Other: See Comments Comments: Drops bp, dizziness Date Reviewed: 08/26/2015 Reviewed by: Hattie Rae (Feed Elevator Worker) ISRAEL Elias - Fully Assessed Reason for [...] eyes [H40.003] INVALID FOR* Encounter Status:Closed by CHANDA BUITRAGO on 05/23/18 [facility] Lab Report: Miscellaneous La b Procedureon 04-27-2017 GE use only - for LinkLogic import when terms are not otherwise specified . Invalid Interpretation Code [facility] Office Visit: UC: Cold Sympt omson 04-29-2016 Documentation of current medications (procedure) Done Invalid Interpretation Code [facility] Tobacco smoking status [facility] Never Inva lid Interpretation Code [facility] Tobacco smoking status [facility] Tobacco smok ing status [facility] Invalid Interpretation Code [facility] Vital Signs Date Time Vital Sign Value Performing Clinician Facility 11-26-2024 09:23-0400 Body height 154.[address] Kenzie Torrez DO Work Phone: [facility] 09-27-2024 10:30-0400 Body height 154.[address] Kenzie Torrez DO Work Phone: [facility] 09-27-2024 10:30-0400 Body mass index (BMI) [Ratio] 24.3 kg/m2 Dr. Kenzie Torrez DO Work Phone: [facility] 09-27-2024 10:30-0400 Body weight 58.[address] Kenzie Torrez DO Work Phone: [facility] 09-27-2024 10:30-0400 Diastolic blood pressure 70 mm[Hg] Dr. Kenzie Torrez DO Work Phone: [facility] 09-27-2024 10:30-0400 Heart rate 62 /min Dr. Kenzie Torrez DO Work Phone: [facility] 09-27-2024 10:30-0400 Respiratory rate 16 /min Dr. Kenzie Torrez DO Work Phone: [facility] 09-27-2024 10:30-0400 Systolic blood pressure 103 mm[Hg] Dr. Kenzie Torrez DO Work Phone: [facility] 07-19-2024 12:59-0400 Body height 154.[address] Kenzie Torrez DO Work Phone: [facility] 07-19-2024 12:59-0400 Body mass index (BMI) [Ratio] 24.1 kg/m2 Dr. Kenzie Torrez DO Work Phone: [facility] 07-19-2024 12:59-0400 Body weight 58.[address] Kenzie Torrez DO Work Phone: [facility] 07-19-2024 12:59-0400 Diastolic blood pressure 71 mm[Hg] Dr. Kenzie Torrez DO Work Phone: [facility] 07-19-2024 12:59-0400 Heart rate 75 /min Dr. Kenzie Torrez DO Work Phone: [facility] 07-19-2024 12:59-0400 Respiratory rate 17 /min Dr. Kenzie Torrez DO Work Phone: [facility] 07-19-2024 12:59-0400 SaO2% (BldA) [Mass fraction] 97 % Dr. Kenzie Torrez DO Work Phone: [facility] 07-19-2024 12:59-0400 Systolic blood pressure 102 mm[Hg] Dr. Kenzie Torrez DO Work Phone: [facility] 07-17-2024 14:39-0400 Body mass index (BMI) [Ratio] 24 kg/m2 Dr. Kenzie Torrez DO Work Phone: [facility] 07-17-2024 14:39-0400 Body weight 57.[address] Kenzie Torrez DO Work Phone: [facility] 07-17-2024 14:39-0400 Diastolic blood pressure 79 mm[Hg] Dr. Kenzie Torrez DO Work Phone: [facility] 07-17-2024 14:39-0400 Systolic blood pressure 122 mm[Hg] Dr. Kenzie Torrez DO Work Phone: [facility] 03-28-2024 06:37-0500 Body mass index (BMI) [Ratio] 23.5 kg/m2 Dr. Kenzie Torrez DO Work Phone: [facility] 03-28-2024 06:37-0500 Body temperature 98.2 [degF] Dr. Kenzie Torrez DO Work Phone: [facility] 03-28-2024 06:37-0500 Body weight 56.[address] Kenzie Torrez DO Work Phone: [facility] 03-28-2024 06:37-0500 Diastolic blood pressure 58 mm[Hg] Dr. Kenzie Torrez DO Work Phone: [facility] 03-28-2024 06:37-0500 Heart rate 63 /min Dr. Kenzie Torrez DO Work Phone: [facility] 03-28-2024 06:37-0500 Respiratory rate 15 /min Dr. Kenzie Torrez DO Work Phone: [facility] 03-28-2024 06:37-0500 SaO2% (BldA) [Mass fraction] 97 % Dr. Kenzie Torrez DO Work Phone: [facility] 03-28-2024 06:37-0500 Systolic blood pressure 118 mm[Hg] Dr. Kenzie Torrez DO Work Phone: [facility] 03-26-2024 10:03-0500 Body mass index (BMI) [Ratio] 24 kg/m2 Michelle Corbin MD Work Phone: [facility] 03-26-2024 10:03-0500 Body weight 57.61 kg Michelle Corbin MD Work Phone: [facility] 03-26-2024 10:03-0500 Diastolic blood pressure 64 mm[Hg] Michelle Corbin MD Work Phone: [facility] 03-26-2024 10:03-0500 Heart rate 58 /min Michelle Corbin MD Work Phone: [facility] 03-26-2024 10:03-0500 Respiratory rate 12 /min Michelle oCrbin MD Work Phone: [facility] 03-26-2024 10:03-0500 SaO2% (BldA) [Mass fraction] 98 % Michelle Corbin MD Work Phone: [facility] 03-26-2024 10:03-0500 Systolic blood pressure 120 mm[Hg] Michelle Corbin MD Work Phone: [facility] 06-15-2023 15:32-0500 Body height 154.[address] Kenzie Torrez Work Phone: [facility] 06-15-2023 15:32-0500 Body mass index (BMI) [Ratio] 23.8 kg/m2 Dr. Kenzie Torrez Work Phone: [facility] 06-15-2023 15:32-0500 Body weight 57.[address] Kenzie Torrez Work Phone: [facility] 06-15-2023 15:32-0500 Diastolic blood pressure 82 mm[Hg] Dr. Kenzie Torrez Work Phone: [facility] 06-15-2023 15:32-0500 Systolic blood pressure 133 mm[Hg] Dr. Kenzie Torrez Work Phone: [facility] 04-19-2023 16:28-0500 Body temperature 98.5 [degF] Dr. Kenzie Torrez Work Phone: [facility] 04-19-2023 16:28-0500 Diastolic blood pressure 66 mm[Hg] Dr. Kenzie Torrez Work Phone: [facility] 04-19-2023 16:28-0500 Heart rate 66 /min Dr. Kenzie Torrez Work Phone: [facility] 04-19-2023 16:28-0500 Respiratory rate 16 /min Dr. Kenzie Torrez Work Phone: [facility] 04-19-2023 16:28-0500 SaO2% (BldA) [Mass fraction] 98 % Dr. Kenzie Torrez Work Phone: [facility] 04-19-2023 16:28-0500 Systolic blood pressure 124 mm[Hg] Dr. Kenzie Torrez Work Phone: [facility] 04-19-2023 11:45-0500 Body height 154.[address] Kenzie Torrez Work Phone: [facility] 04-19-2023 11:45-0500 Body mass index (BMI) [Ratio] 23.6 kg/m2 Dr. Kenzie Torrez Work Phone: [facility] 04-19-2023 11:45-0500 Body weight 56.[address] Kenzie Torrez Work Phone: [facility] 01-26-2023 08:05-0400 Diastolic blood pressure 50 mm[Hg] Dr. Kenzie Torrez Work Phone: [facility] 01-26-2023 08:05-0400 Heart rate 66 /min Dr. Kenzie Torrez Work Phone: [facility] 01-26-2023 08:05-0400 Respiratory rate 14 /min Dr. Kenzie Torrez Work Phone: [facility] 01-26-2023 08:05-0400 SaO2% (BldA) [Mass fraction] 100 % Dr. Kenzie Torrez Work Phone: [facility] 01-26-2023 08:05-0400 Systolic blood pressure 85 mm[Hg] Dr. Kenzie Torrez Work Phone: [facility] 01-26-2023 08:00-0400 Body temperature 97.4 [degF] Dr. Kenzie Torrez Work Phone: [facility] 01-26-2023 06:35-0400 Body height 154.[address] Kenzie Torrez Work Phone: [facility] 01-26-2023 06:35-0400 Body mass index (BMI) [Ratio] 23.3 kg/m2 Dr. Kenzie Torrez Work Phone: [facility] 01-26-2023 06:35-0400 Body weight [address] Kenzie Torrez Work Phone: [facility] 01-10-2023 10:48-0400 Body mass index (BMI) [Ratio] 23.88 kg/m2 Zaynab Eller MD Work Phone: [facility] 01-10-2023 10:48-0400 Body weight 57.34 kg Zaynab Eller MD Work Phone: [facility] 01-10-2023 10:48-0400 Diastolic blood pressure 68 mm[Hg] Zaynab Eller MD Work Phone: [facility] 01-10-2023 10:48-0400 Heart rate 91 /min Zaynab Eller MD Work Phone: [facility] 01-10-2023 10:48-0400 SaO2% (BldA) [Mass fraction] 99 % Zaynab Eller MD Work Phone: [facility] 01-10-2023 10:48-0400 Systolic blood pressure 112 mm[Hg] Zaynab Eller MD Work Phone: [facility] 07-08-2022 15:20-0400 Body height 154.9 cm Lela Leiva MD Work Phone: [facility] 07-08-2022 15:20-0400 Body mass index (BMI) [Ratio] 26.04 kg/m2 Lela Leiva MD Work Phone: [facility] 07-08-2022 15:20-0400 Body weight 62.51 kg Lela Leiva MD Work Phone: [facility] 07-08-2022 15:20-0400 Diastolic blood pressure 70 mm[Hg] Lela Leiva MD Work Phone: [facility] 07-08-2022 15:20-0400 Heart rate 81 /min Lela Leiva MD Work Phone: [facility] 07-08-2022 15:20-0400 Respiratory rate 16 /min Lela Leiva MD Work Phone: [facility] 07-08-2022 15:20-0400 SaO2% (BldA) [Mass fraction] 96 % Lela Leiva MD Work Phone: [facility] 07-08-2022 15:20-0400 Systolic blood pressure 110 mm[Hg] Lela Leiva MD Work Phone: [facility] 04-30-2022 14:58-0500 Body height 154.[address] Kenzie Torrez Work Phone: [facility] 04-30-2022 14:58-0500 Body mass index (BMI) [Ratio] 25.7 kg/m2 Dr. Kenzie Torrez Work Phone: [facility] 04-30-2022 14:58-0500 Body weight 61.[address] Kenzie Torrez Work Phone: [facility] 04-30-2022 14:58-0500 Diastolic blood pressure 77 mm[Hg] Dr. Kenzie Torrez Work Phone: [facility] 04-30-2022 14:58-0500 Heart rate 80 /min Dr. Kenzie Torrez Work Phone: [facility] 04-30-2022 14:58-0500 SaO2% (BldA) [Mass fraction] 98 % Dr. Kenzie Torrez Work Phone: [facility] 04-30-2022 14:58-0500 Systolic blood pressure 128 mm[Hg] Dr. Kenzie Torrez Work Phone: [facility] 04-28-2022 09:06-0500 Body mass index (BMI) [Ratio] 25.2 kg/m2 Dr. Kenzie Torrez Work Phone: [facility] 04-28-2022 09:06-0500 Body weight 60.[address] Kenzie Torrez Work Phone: [facility] 04-28-2022 09:06-0500 Diastolic blood pressure 80 mm[Hg] Dr. Kenzie Torrez Work Phone: [facility] 04-28-2022 09:06-0500 Systolic blood pressure 129 mm[Hg] Dr. Kenzie Torrez Work Phone: [facility] 04-20-2022 10:39-0500 Body mass index (BMI) [Ratio] 24.5 kg/m2 Dr. Kenzie Torrez Work Phone: [facility] 04-20-2022 10:39-0500 Body weight 58.[address] Kenzie Torrez Work Phone: [facility] 04-20-2022 10:39-0500 Diastolic blood pressure 63 mm[Hg] Dr. Kenzie Torrez Work Phone: [facility] 04-20-2022 10:39-0500 Heart rate 72 /min Dr. Kenzie Torrez Work Phone: [facility] 04-20-2022 10:39-0500 Respiratory rate 16 /min Dr. Kenzie Torrez Work Phone: [facility] 04-20-2022 10:39-0500 Systolic blood pressure 112 mm[Hg] Dr. Kenzie Torrez Work Phone: [facility] 04-13-2022 10:59-0500 Body height 154.94 cm [facility] Work Phone: 04-13-2022 10:59-0500 Body mass index (BMI) [Ratio] 24.5 kg/m2 [facility] 04-13-2022 10:59-0500 Body temperature 97.9 [degF] [facility] 04-13-2022 10:59-0500 Body weight 58.96 kg [facility] 04-13-2022 10:59-0500 Diastolic blood pressure 76 mm[Hg] [facility] 04-13-2022 10:59-0500 Heart rate 77 /min [facility] 04-13-2022 10:59-0500 Respiratory rate 14 /min [facility] 04-13-2022 10:59-0500 SaO2% (BldA) [Mass fraction] 99 % [facility] 04-13-2022 10:59-0500 Systolic blood pressure 118 mm[Hg] [facility] 09-29-2021 08:42-0400 Body height 154.9 cm Lela Leiva MD Work Phone: [facility] 09-29-2021 08:42-0400 Body mass index (BMI) [Ratio] 25.36 kg/m2 Lela Leiva MD Work Phone: [facility] 09-29-2021 08:42-0400 Body weight 60.87 kg Lela Leiva MD Work Phone: [facility] 09-29-2021 08:42-0400 Diastolic blood pressure 72 mm[Hg] Lela Leiva MD Work Phone: [facility] 09-29-2021 08:42-0400 Heart rate 61 /min Lela Leiva MD Work Phone: [facility] 09-29-2021 08:42-0400 Respiratory rate 14 /min Lela Leiva MD Work Phone: [facility] 09-29-2021 08:42-0400 SaO2% (BldA) [Mass fraction] 97 % Lela Leiva MD Work Phone: [facility] 09-29-2021 08:42-0400 Systolic blood pressure 118 mm[Hg] Lela Leiva MD Work Phone: [facility] 07-14-2021 12:27-0400 Body height 154.[address] Kenzie Torrez Work Phone: [facility] Work Phone: 07-14-2021 12:27-0400 Body mass index (BMI) [Ratio] 25 kg/m2 Dr. Kenzie Torrez Work Phone: [facility] Work Phone: 07-14-2021 12:27-0400 Body weight 60.[address] Kenzie Torrez Work Phone: [facility] Work Phone: 07-14-2021 12:27-0400 Diastolic blood pressure 77 mm[Hg] Dr. Kenzie Torrez Work Phone: [facility] Work Phone: 07-14-2021 12:27-0400 Heart rate 74 /min Dr. Kenzie Torrez Work Phone: [facility] Work Phone: 07-14-2021 12:27-0400 Respiratory rate 16 /min Dr. Kenzie Torrez Work Phone: [facility] Work Phone: 07-14-2021 12:27-0400 SaO2% (BldA) [Mass fraction] 96 % Dr. Kenzie Torrez Work Phone: [facility] Work Phone: 07-14-2021 12:27-0400 Systolic blood pressure 108 mm[Hg] Dr. Kenzie Torrez Work Phone: [facility] Work Phone: 05-10-2021 05:12-0500 Diastolic blood pressure 80 mm[Hg] Dr. Kenzie Torrez Work Phone: [facility] Work Phone: 05-10-2021 05:12-0500 Heart rate 68 /min Dr. Kenzie Torrez Work Phone: [facility] Work Phone: 05-10-2021 05:12-0500 Respiratory rate 15 /min Dr. Kenzie Torrez Work Phone: [facility] Work Phone: 05-10-2021 05:12-0500 SaO2% (BldA) [Mass fraction] 96 % Dr. Kenzie Torrez Work Phone: [facility] Work Phone: 05-10-2021 05:12-0500 Systolic blood pressure 120 mm[Hg] Dr. Kenzie Torrez Work Phone: [facility] Work Phone: 05-10-2021 01:32-0500 Body mass index (BMI) [Ratio] 25 kg/m2 Dr. Kenzie Torrez Work Phone: [facility] Work Phone: 05-10-2021 01:32-0500 Body temperature 97.1 [degF] Dr. Kenzie Torrez Work Phone: [facility] Work Phone: 05-10-2021 01:32-0500 Body weight 60.[address] Kenzie Torrez Work Phone: [facility] Work Phone: 01-21-2022 13:25-0500 Body mass index (BMI) [Ratio] 24.5 kg/m2 Dr. Kenzie Torrez Work Phone: [facility] Work Phone: 05-01-2021 13:25-0500 Body weight 58.[address] Kenzie Torrez Work Phone: [facility] Work Phone: 04-29-2016 08:09-0500 BMI (Body Mass Index) 26.75 kg/m2 Jazzy Diaz NP [facility] [place] 04-29-2016 08:09-0500 Body Temperature 98.1 [degF] Jazzy Diaz [facility] 04-29-2016 08:09-0500 BP Diastolic 72 mm[Hg] Jazzy Diaz [employer] [facility] 04-29-2016 08:09-0500 BP Systolic 126 mm[Hg] Jazzy Diaz [facility] [place] 04-29-2016 08:09-0500 BSA (Body Surface Area) 1.63 m2 Jazzy Diaz [facility] [place] 04-29-2016 08:09-0500 Height 154.[address] [facility] [place] 04-29-2016 08:09-0500 Pulse (Heart Rate) 71 /min Jazzy Diaz [facility] [place] 04-29-2016 08:09-0500 Respiratory Rate 16 /min Jazzy Diaz [facility] 04-29-2016 08:09-0500 Weight 64.[address] [facility] Encounters Encounter Date Encounter Type Care Provider Facility Start: 12-19-2024 ambulatory Kenzie Torrez Facility:[facility] Start: 11-27-2024 End: 11-27-[address] Kenzie Torrez DO Work Phone: -[facility] Start: 11-27-2024 End: 11-27-[address] Zechariah Fajardo MD -[facility] Work Phone: Start: 11-26-2024 End: 11-26-[address] Zechariah Fajardo MD -Radiology [facility] Work Phone: Start: 11-26-2024 End: 11-26-2024 ambulatory Zechariah Fajardo Facility:[facility] Start: 11-22-2024 Registered Referred HEALTH RIS K ASSESSMENT -Employee Health Start: 11-22-2024 ambulatory Health Risk Assessment Facility:[facility] Start: 09-27-2024 End: 09-27-[address] Bry Pelaez MD -[facility] Work Phone: Start: 09-27-2024 End: 09-27-[address] Kenzie Torrez DO Work Phone: [facility] Work Phone: Start: 09-20-2024 ambulatory Kenzie Torrez Facility:[facility] Start: 07-19-2024 End: 07-19-[address] Nancy Lim MD -[facility] Work Phone: Start: 07-19-2024 End: 07-19-2024 ambulatory Kenzie Torrez Facility:[facility] Start: 07-17-2024 End: 07-17-[address] Kenzie Torrez DO Work Phone: [facility] Work Phone: Start: 07-17-2024 End: 07-17-2024 Patient encounter procedure Margaret MURILLO -Lab, [facility] [place] Start: 07-17-2024 End: 07-17-2024 Patient encounter procedure Margaret MURILLO -[facility] Work Phone: Start: 07-17-2024 End: 07-17-2024 Patient encounter status Margaret MURILLO [facility] Start: 07-17-2024 End: 07-17-2024 ambulatory Kenzie Torrez Facility:[facility] Start: 07-17-2024 End: 07-17-2024 ambulatory Margaret Frederick Facility:[facility] Start: 03-28-2024 End: 03-28-2024 Patient encounter procedure Lul REESE [facility] Work Phone: Start: 03-28-2024 End: 03-28-2024 ambulatory Lul REESE Facility:[facility] Start: 03-26-2024 End: 03-26-2024 Office outpatient visit 15 minutes Michelle Corbin MD Work Phone: [facility] [place] Comment on above: SS-A antibody positi ve (Primary Dx); Subacute cutaneous lupus erythematosus Start: 03-26-2024 ambulatory NIPEN CATALINAEL Facility:[facility] Start: 02-28-2024 ambulatory Kenzie Malys Facility:[facility] Start: 02-27-2024 ambulatory Kenzie Malys Facility:[facility] Start: 02-27-2024 End: 02-27-2024 ambulatory Kenzie Malys Facility:[facility] Start: 02-02-2024 End: 02-02-2024 [facility] Start: 01-31-2024 End: 02-01-2024 ambulatory Kenzie Malys Facility:[facility] Start: 12-13-2023 ambulatory Kenzie Malys Facility:[facility] Start: 06-15-2023 End: 06-15-[address] Kenzie Torrez Work Phone: [facility] Work Phone: Start: 06-15-2023 End: 06-15-[address] Kenzie Torrez Work Phone: [facility]-Laboratory, Specimen Work Phone: Start: 06-15-2023 End: 06-15-[address] Kenzie Torrez Work Phone: [facility] Work Phone: Start: 04-26-2023 End: 04-26-[address] Kenzie Torrez Work Phone: [facility] Work Phone: Start: 04-26-2023 End: 04-26-[address] Kenzie Torrez Work Phone: [facility]-Cat Scan, [facility] Work Phone: Start: 04-23-2023 End: 04-23-[address] Kenzie Torrez Work Phone: [facility] Work Phone: Start: 04-23-2023 End: 04-23-[address] Kenzie Torrez Work Phone: [facility] Work Phone: Start: 04-19-2023 End: 04-19-2023 Admission to same day surgery center Dr. Kenzie Torrez Work Phone: [facility] Start: 01-28-2023 End: 01-28-[address] Kenzie Torrez Work Phone: [facility]Outpatient Pav[facility] Ultrasound Work Phone: Start: 01-26-2023 Non-patient / Non-visit Dr. Carlotta Torrez Work Phone: [facility] Start: 01-26-2023 End: 01-26-2023 Admission to same day surgery center Dr. Kenzie Torrez Work Phone: [facility]Endoscopy Work Phone: Start: 01-26-2023 End: 01-26-[address] Kenzie Torrez Work Phone: [facility] Work Phone: Start: 01-21-2023 End: 01-21-[address] Kenzie Torrez Work Phone: [facility] Work Phone: Start: 01-21-2023 End: 01-21-[address] Kenzie Torrez Work Phone: [facility]-Outpatient Breast Imaging Work Phone: Start: 01-10-2023 End: 01-10-2023 Office outpatient visit 25 minutes Zaynab Eller MD Work Phone: [facility] [place] Comment on above: Subacute cutaneous l upus erythematosus (Primary Dx); SS-A antibody positive; Long-term use of hydroxychloroquine Start: 12-06-2022 End: 12-06-2022 ambulatory [facility] Work Phone: Start: 12-06-2022 End: 12-06-2022 Patient encounter procedure [facility] Work Phone: Start: 12-06-2022 Registered Referred [facility] Start: 07-08-2022 End: 07-08-2022 Office outpatient visit 25 minutes Lela Leiva MD Work Phone: [facility] [place] Comment on above: Subacute cutaneous l upus erythematosus (Primary Dx); SS-A antibody positive; Long-term use of hydroxychloroquine; Therapeutic drug monitoring Start: 04-30-2022 End: 04-30-[address] Kenzie Torrez Work Phone: [facility] Start: 04-28-2022 Non-patient / Non-visit Dr. Carlotta Torrez Work Phone: [facility] Start: 04-28-2022 End: 04-28-[address] Kenzie Torrez Work Phone: [facility] Work Phone: Start: 04-28-2022 End: 04-28-[address] Kenzie Torrez Work Phone: [facility]Cardiovascular Services Start: 04-28-2022 End: 04-28-[address] Kenzie Torrez Work Phone: [facility] Start: 04-20-2022 End: 04-20-[address] Kenzie Torrez Work Phone: [facility] Start: 04-13-2022 End: 04-13-2022 Emergency department patient visit [facility] Start: 01-20-2022 End: 01-20-2022 Patient encounter procedure [facility]Outpatient [facility] Start: 01-06-2022 Registered Referred [facility] Start: 09-29-2021 End: 09-29-2021 Office outpatient visit 25 minutes Lela Leiva MD Work Phone: [facility] [place] Comment on above: Subacute cutaneous l upus erythematosus (Primary Dx); SS-A antibody positive; Therapeutic drug monitoring Start: 09-15-2021 End: 09-15-[address] Kenzie Torrez Work Phone: [facility] Start: 07-28-2021 End: 07-28-[address] Kenzie Torrez Work Phone: [facility] Start: 07-14-2021 End: 07-14-[address] Kenzie Torrez Work Phone: [facility] Start: 07-08-2021 End: 07-08-[address] Kenzie Torrez Work Phone: [facility] Start: 07-06-2021 End: 07-06-[address] Kenzie Torrez Work Phone: [facility] Start: 05-10-2021 End: 05-10-2021 Emergency department patient visit Dr. Kenzie Torrez Work Phone: [facility] Start: 05-01-2021 End: 05-01-[address] Kenzie Torrez Work Phone: [facility] Start: 04-06-2021 End: 04-06-[address] Kenzie Torrez Work Phone: [facility] Procedures Date Procedure Procedure Detail Performing Clinician Start: 11-26-2024 Plain X-ray of shoulder Dr. Kenzie Torrez DO Work Phone: Start: 11-22-2024 Serum inorganic phos phate measurement Dr. Kenzie Torrez DO Work Phone: Start: 11-22-2024 Urnls dip stick/tabl et reagent auto microscopy Dr. Kenzie Torrez DO Work Phone: Start: 07-17-2024 Liquid based cervica l cytology screening Dr. Kenzie Torrez DO Work Phone: Comment on above: NEGATIVE FOR INTRAEP ITHELIAL LESION OR MALIGNANCY. This liquid based Th inPrep(R) pap test was screened withthe use of an image guided system. Start: 04-26-2023 CT angiography of ch est with contrast Dr. Kenzie Torrez Work Phone: Start: 04-19-2023 X-ray of both feet Dr. Kenzie Torrez Work Phone: Start: 04-19-2023 Fluoroscopic guidance Jihan Torrez Work Phone: Start: 04-19-2023 X-ray of both feet Dr. Kenzie Torrez Work Phone: Start: 01-28-[address] Kenzie Torrez Work Phone: Start: 01-26-[address] Kenzie west Work Phone: Start: 01-21-2023 Screening mammography Jihan Torrez Work Phone: Start: 01-20-2022 Screening mammography Start: 09-15-2021 End: 09-15-[address] Kenzie Torrez Work Phone: Start: 05-10-2021 CT angiography of ch est with contrast Dr. Kenzie Torrez Work Phone: Start: 12-19-2018 History of placement of stent for coronary artery disease History of coronary artery stent placement Dr. Bry Pelaez MD Comment on above: PCI-JAMIE-Mid LAD w/ 2 .25 x 38 Promus Synergy 12/19/17; PCI- Ostial LAD w/ 2.5 x 8 mm Synergy 12/19/18 Start: 05-02-2018 History of coronary artery bypass grafting H/O coronary artery bypass surgery Dr. Bry Pelaez MD Comment on above: Thorascopic guided s braeden vessel CABG with a BEST to LAD 05/02/18 Start: 04-17-2018 Lipid 1996 panel - S rober or Plasma Lela Leiva MD Work Phone: Plan of Treatment Date Care Activity Detail Author Start: 09-24-2024 End: 09-24-2024 Patient encounter procedure 09/24/2024 10:30 AM EDT Office Visit [facility] [address] [place] [address] [id number] Michelle Corbin MD [address] [place] [address] [id number] [facility] [place] Start: 07-17-2024 Liquid based cervica l cytology screening [facility] Start: 03-26-2024 End: 03-26-2025 DSDNA ANTIBODY [facility] Comment on above: Expected: 03/26/2024 , Expires: 03/26/2025 Start: 03-26-2024 End: 03-26-2025 PROTEIN ELECTROPHORESIS SERUM, WITH REFLEX [facility] Comment on above: Expected: 03/26/2024 , Expires: 03/26/2025 Start: 12-11-2023 COVID-19 VACCINE () COVID-19 VACCINE () [facility] Start: 12-11-2023 Influenza vaccination INFLUENZA VACC INE (#1) [facility] Start: 06-15-2023 Liquid based cervica l cytology screening [facility] Start: 04-19-2023 Application of gauze support bandage [facility] Start: 04-19-2023 Catheterization of vein [facility] Start: 04-19-2023 Elevation of foot of bed [facility] Start: 04-19-2023 Neurovascular assessment [facility] Start: 04-19-2023 Patient discharge [facility] Start: 04-19-2023 Procedure discontinued [facility] Start: 04-19-2023 Vital signs measurements [facility] Start: 04-19-2023 [facility] Start: 04-19-2023 Anes open proc bones lower leg/ankle/foot nos ANESTH LOWER LEG BONE SURG [facility] Start: 04-19-2023 Corrj hallux valgus w/sesmdc w/dist metar osteot COR HLX VLGS DSTL MTAR OSTEO [facility] Start: 04-19-2023 Corrj hallux valgus w/sesmdc w/prox phlnx osteot COR HLX VLGS PRX PHLX OSTEOT [facility] Start: 04-19-2023 Exc lesion tendon sheath/capsule w/synvct foot REMOVAL OF FOOT LESION [facility] Start: 04-19-2023 Excision tumor soft tis foot/toe subq 1.5 cm/> EXC FOOT/TOE YAJAIRA SC 1.5 CM/> [facility] Start: 04-17-2023 Fasting lipid profile LIPID SCREENIN G [facility] Start: 04-17-2023 Lipid panel LIPID SCREENING [facility] Start: 01-26-2023 Colonoscopy w/biopsy single/multiple COLONOSCOPY AND BIOPSY [facility] Start: 01-26-2023 Patient discharge [facility] Start: 12-10-2022 Influenza vaccination INFLUENZA VACC INE (#1) [facility] Start: 07-08-2022 End: 07-09-2023 DSDNA ANTIBODY [facility] Comment on above: Expected: 07/08/2022 , Expires: 07/09/2023 Start: 07-08-2022 End: 07-09-2023 PROTEIN ELECTROPHORESIS SERUM, WITH REFLEX [facility] Comment on above: Expected: 07/08/2022 , Expires: 07/09/2023 Start: 07-08-2022 End: 07-09-2023 URINALYSIS REFLEX TO CULTURE [facility] Comment on above: Expected: 07/08/2022 , Expires: 07/09/2023 Start: 12-10-2021 Influenza vaccination [facility] Start: 09-29-2021 End: 09-29-2022 DSDNA ANTIBODY [facility] Work Phone: Comment on above: Expected: 09/29/2021 , Expires: 09/29/2022 Start: 09-29-2021 End: 09-29-2022 URINALYSIS REFLEX TO CULTURE [facility] Comment on above: Expected: 09/29/2021 , Expires: 09/29/2022 Start: 01-09-2020 Zoster vaccine hzv l radames for subcutaneous use ZOSTER (SHINGLES) VACCINE (1 of 2) [facility] Start: 2015 Colonoscopy COLORECTAL CAN CER SCREENING DISCUSSION [facility] Start: 2015 Screening for malign ant neoplasm of colon COLORECTAL CANCER SCREENING DISCUSSION [facility] Start: 2010 Screening for malign ant neoplasm of breast MAMMOGRAM SCREENING DISCUSSION [facility] Start: 2010 Screening mammography MAMMOGRA M SCREENING DISCUSSION [facility] Start: 1991 Screening for malign ant neoplasm of cervix CERVICAL CANCER SCREENING DISCUSSION [facility] Start: 1989 Third diphtheria, te tanus and acellular pertussis (DTaP) vaccination TDAP (ADULT) [facility] Start: 1989 Zoster vaccine hzv l radames for subcutaneous use ZOSTER (SHINGLES) VACCINE (1 of 2) [facility] Start: 01-09-1988 Tetanus vaccination TETANUS [facility] Start: 01-09-1976 PNEUMOCOCCAL VACCINE SERIES (1 - PCV) PNEUMOCOCCAL VACCINE SERIES (1 - PCV) [facility] Start: 1975 COVID-19 VACCINE (#1) COVID-19 VACCI NE (#1) [facility] Start: 1970 COVID-19 VACCINE (#1) COVID-19 VACCI NE (#1) [facility] Start: 1970 Tetanus vaccination TETANUS [facility] C reactive protein [Mass/volume] in Serum or Plasma [facility] Cytology report of Cervical or vaginal smear or scraping Cyto stain.thin prep [facility] Erythrocyte sediment ation rate [facility] Lactoferrin [Presenc e] in Stool by Immunoassay [facility] MG Breast - bilatera l Screening [facility] MR Lower Extremity Joint [facility] Path report.final Dx Spec [facility] Path report.final Dx Spec [facility] Patient Education [facility] Work Phone: Patient referral [facility] Work Phone: Protein measurement [facility] US Breast limited [facility] Immunizations Immunization Date Immunization Notes Care Provider Fa cility 02-20-2021 Covid (Moderna) Dr. Kenzie payne Work Phone: [facility] 05-20-2020 Covid (Moderna) Dr. Kenzie payne Work Phone: [facility] 04-22-2020 Covid (Moderna) Dr. Kenzie payne Work Phone: [facility] 01-06-2018 Influenza Vaccine Preservative Free Lela Leiva MD Work Phone: [facility] 01-06-2018 influenza, injectabl e, quadrivalent, preservative free Dr. Kenzie Torrez Work Phone: [facility] 01-06-2018 influenza, seasonal, injectable Dr. Kenzie Torrez Work Phone: [facility] 01-06-2018 influenza virus vaccine, unspecified formulation Lela Leiva MD Work Phone: [facility] 01-05-2017 Influenza Vaccine Preservative Free Lela Leiva MD Work Phone: [facility] 01-05-2017 influenza, injectabl e, quadrivalent, preservative free Dr. Kenzie Torrez Work Phone: [facility] 01-05-2017 influenza, seasonal, injectable Dr. Kenzie Torrez Work Phone: [facility] 01-09-2016 influenza, injectabl e, quadrivalent, preservative free Dr. Kenzie Torrez Work Phone: [facility] 01-09-2016 influenza, seasonal, injectable Dr. Kenzie Torrez Work Phone: [facility] 03-24-2015 influenza, injectabl e, quadrivalent, preservative free Dr. Kenzie Torrez Work Phone: [facility] 03-24-2015 influenza, seasonal, injectable Dr. Kenzie Torrez Work Phone: [facility] 2014 influenza, injectabl e, quadrivalent, preservative free Dr. Kenzie Torrez Work Phone: [facility] 2014 influenza, seasonal, injectable Dr. Kenzie Torrez Work Phone: [facility] 02-08-2013 Influenza Vaccine Preservative Free Lela Leiva MD Work Phone: [facility] 02-08-[address] Kenzie Torrez Work Phone: [facility] 01-14-2009 Influenza Vaccine Nasal Sabi randee Eller MD Work Phone: [facility] 01-14-2009 influenza virus vaccine, live, attenuated, for intranasal use Lela Leiva MD Work Phone: [facility] Payers Date Payer Category Payer Self-pay [id number] 2022 Private Health Insurance [employer] Anup ARGUETA [id number] 2022-Present [address] [place] [id number] 2022 Unknown [id number] 2018 Unknown [facility] ACCESS [id number] 2018-Present [address] [address] [place] [address] [id number] 2013 Unknown [id number] 1970 Unknown [id number] 94 1970 Unknown [id number] 94 Unknown [facility] [id number] Unknown [id number] 62 Unknown [id number] [id number] 62 Unknown [id number] [id number] 62 Unknown [id number] [id number] 62 Unknown [id number] [id number] 62 Unknown [id number] [id number] 62 Unknown [id number] [id number] 62 Unknown [id number] 2.16.840.1.534350.3.579.2.4 62 Unknown [id number] 2.16.840.1.156403.3.579.2.4 62 Unknown [id number] 2.16.840.1.692908.3.579.2.4 62 Unknown [id number] [id number] 62 Unknown [id number] 2.16.840.1.289410.3.579.2.4 62 Unknown [id number] [id number] 62 Unknown [id number] 2.16.840.1.797209.3.579.2.4 62 Unknown [id number] [id number] 62 Unknown [id number] [id number] 62 Unknown [id number] 62 Social History Date Type Detail Facility Start: 07-14-2021 End: 06-15-2023 Tobacco smoking status [facility] Unknown if ever smoked [facility] Start: 05-07-2018 Occasional [facility] Start: 05-07-2018 None [facility] Start: 05-07-2018 Alone [facility] Start: 05-01-2021 Non-smoker [facility] Start: 1970 Sex Assigned At Female [facility] Start: 04-18-2018 End: 11-26-2024 Tobacco smoking status TXIS Never smoked tobacco [facility] Start: 04-18-2018 End: 07-08-2022 Tobacco use and exposure Smokeless tobacco non-user [facility] Start: 09-29-2021 End: 03-26-2024 Alcohol intake Current drinker of alcohol (finding) [facility] Start: 09-29-2021 End: 03-26-2024 Alcohol intake [facility] Start: 1970 Sex Assigned At Not on file [facility] Start: 01-10-2023 End: 03-26-2024 Tobacco use panel [facility] Start: 04-17-2018 Gender identity Identifies as female gender (finding) [facility] Start: 03-21-2024 Sexual orientation Heterosexual (fin leanne) [facility] Start: 07-23-2024 Sex Female (finding) [facility] NEGATED: Highlighted row [facility] Medical Equipment Procedure Code Equipment Code Equipment Origin al Text Equipment Identifier Dates Bunionectomy 3.5mm beveled FT screw FDA Start: 04-19-2023 Bunionectomy 4.0 BEVELED FT SCREW FDA St art: 04-19-2023 Bunionectomy 3.5mm beveled FT screw FDA Start: 04-19-2023 Bunionectomy 4.0 BEVELED FT SCREW FDA St art: 04-19-2023 Bunionectomy 3.5mm beveled FT screw FDA Start: 04-19-2023 Bunionectomy 4.0 BEVELED FT SCREW FDA St art: 04-19-2023 Bunionectomy 3.5mm beveled FT screw FDA Start: 04-19-2023 Bunionectomy 4.0 BEVELED FT SCREW FDA St art: 04-19-2023 Bunionectomy 3.5mm beveled FT screw FDA Start: 04-19-2023 Bunionectomy 4.0 BEVELED FT SCREW FDA St art: 04-19-2023 Bunionectomy 3.5mm beveled FT screw FDA Start: 04-19-2023 Bunionectomy 4.0 BEVELED FT SCREW FDA St art: 04-19-2023 Bunionectomy 3.5mm beveled FT screw FDA Start: 04-19-2023 Bunionectomy 4.0 BEVELED FT SCREW FDA St art: 04-19-2023 Goals Date Patient Goal Desired Activity /State Functional Status Date Assessment Result Facility 04-19-2023 Functional status Ambulates;Bathroom Priv ilege [facility] Work Phone: Mental Status Date Assessment Result Facility 04-19-2023 Cognitive function Voice/Name [facility] Work Phone: 01-26-2023 Cognitive function Touch/Shaking;Light Pa in [facility] Work Phone: 04-13-2022 Cognitive function Level Of Cons ciousness Awake;Alert;Appropriate;Follow s Commands [facility] Work Phone: 05-10-2021 Cognitive function Level Of Cons ciousness Awake;Alert;Appropriate;Follow s Commands [facility] Work Phone: Clinical Notes 12-19-2018 to 11-27-2024 Note Date & Type Note Facility 11-27-2024 Progress note [facility] 11-27-2024 Progress note Note Date/Time November 27, 2024 10:19am [facility] [address] [place] [address] [address] [place] [address] OFFICE VISIT Date of Service: 11/27/24 MR#: [id number] Acct: [id number] Name: AMALIA RICHARDSON Rep #: [id number] : 1970 Provider: Dr. Luis Manuel Fajardo MD Age/Sex: 54/F Location: [facility] Status: Signed Intake Vital Signs 09/27/24 10:30 11/26/24 09:23 Height 5 ft 1 in 5 ft 1 in Weight: 129 lb BMI 24.3 BP 103/70 Blood Pressure Location Lt brachial Position Sitting Respiration 16 Pulse 62 Pulse Source Monitor Intake Visit Reasons: RIGHT SHOULDER Accompanied by: Self Is patient in pain?: Yes Allergies colchicine Allergy (Mild, Verified 11/27/24 09:36) unknown omeprazole Allergy (Verified 11/27/24 09:36) lupus rash Suvjvmk-IAZ-HtY Reductase Inhibitor (Jznnrir-Xtk-Ebh Reductase Inhibitor) Allergy (Verified 11/27/24 09:36) fever, abn liver function test Sulfa (Sulfonamide Antibiotics) Allergy (Verified 11/27/24 09:36) Nausea/Vom/Diarrhea tramadol HCl (From [facility]) Adverse Reaction (Verified 11/27/24 09:36) Other Medications ?Medication ?Instructions ?Recorded ?Confirmed ?Type cholecalciferol (vitamin D3) 50 50 mcg PO DAILY 11/27/24 History mcg (2,000 unit) capsule levonorgestrel (Mirena) 1 device intrauterine ONCE 0 07/17/24 11/27/24 History clopidogrel 75 mg tablet 75 mg PO DAILY cardiac #90 t abs 08/08/24 11/27/24 Rx lisinopril 5 mg tablet 5 mg PO BID #180 tabs 11/27/24 Rx aspirin 81 mg tablet,delayed 81 mg PO .M-W-F 09/27/24 11/27/24 History release (Adult Aspirin Regimen) buspirone 5 mg tablet 5 mg PO BID Anxiety 09/27/24 11/27/24 History ezetimibe 10 mg tablet See Rx Instructions .Route 0 09/27/24 11/27/24 Rx .COMPLEX #90 tabs hydroxychloroquine 200 mg tablet 200 mg PO QDAY 11/27/24 History magnesium glycinate 100 mg (as 600 mg PO QDAY 09/27/24 11/27/24 History glycinate) tablet metoprolol succinate 25 mg 25 mg PO DAILY #90 tabs 11/27/24 Rx tablet,extended release 24 hr rosuvastatin 5 mg tablet See Rx Instructions .Route 0 09/27/24 11/27/24 Rx .COMPLEX #36 tabs soy isoflavone 100 mg capsule mg PO HS 09/27/24 History zolpidem 5 mg tablet (Ambien) 5 mg PO QHS #60 tabs 11/27/24 Rx lorazepam 0.5 mg tablet (Ativan) 0.5 mg PO ONCE PRN be fore mri 1 11/27/24 11/27/24 Rx day #2 tabs PFSH Medical History Right shoulder pain Anxiety History of lupus History of ulcerative colitis History of echocardiogram Headache Alcohol use Non-smoker History of stress test Cardiology follow-up encounter History of hematuria Chest wall asymmetry Lupus Adenomyosis Pericarditis Acute pericarditis Drug-induced lupus erythematosus Hyperlipidemia Ulcerative colitis Elevated LFTs 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 Surgical History Hx of foot surgery (~04/2023) History of cardiac catheterization Hx of CABG History of colonoscopy with polypectomy (12/05/20) Status post hysteroscopy (11/30/18) H/O coronary artery bypass surgery (05/02/18) History of left heart catheterization (08/29/20) Hx of cholecystectomy History of coronary artery stent placement (12/19/18) Family History Father Heart disease Hypertension Hyperlipidemia Mother Heart disease Bowel disease Respiratory disease Breast cancer Brother Lupus Grandmother Heart disease Diabetes Other grandparents history of heart disease Social History Smoking Status: Never smoker alcohol intake: current details: social substance use type: does not use caffeine: Yes what type of physical activity do you participate in: aerobics frequency: 3-4 times per week seatbelt use: always do you feel safe at home: Yes 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 history: 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 Zechariah Fajardo MD 11/27/24 0810. Part of today?s visit was documented by [ ], acting as scribe. AMALIA RICHARDSON is a 54 year old F here today for R shoulder pain. 3 months. no trauma. workout 3-4 per week. lateral pain. worse at night. using rest. doing some home based PT. was improving. but then got worse again. took some time off from working out but then worse. no cancers Supplemental Info [facility] Imaging Services [address] [place] [address] Shoulder min 2 Views MR#: [id number] Acct: [id number] Name: AMALIA RICHARDSON Rep #: [id number] : 1970 F 54 From: Alexia Bagley DO PCP: Dr. Kenzie Torrez, DO Status: REG CLI Study: Shoulder min 2 Views Date of Exam: 11/26/24 Exam# [id number] Ordering Dr: Zechariah Fajardo MD PROCEDURE: SHOULDER MIN 2 VIEWS 11/26/2024 REASON FOR EXAM: PAIN TECHNIQUE: SHOULDER MIN 2 VIEWS Laterality: Right COMPARISON: None FINDINGS: Bones: There are no fractures or dislocations. A 4 mm lucent lesion is seen in the right radial head with a sclerotic margin. This is most compatible with a benign bony cyst. The visualized right ribs are unremarkable. Joints: Mild arthritic changes are seen involving the acromioclavicular joint. Glenohumeral joint is well preserved. The acromial humeral space is well preserved. The coracoclavicular space is well preserved. Soft tissues: The visualized right lung is clear. Soft tissues are grossly unremarkable. RAD/Shoulder min 2 Views IMPRESSION: The 4 mm lucent lesion in the right radial head has benign features and is most compatible with a benign bony cyst. Mild arthritic changes are seen involving the right acromioclavicular joint. Reading Location: [id number] I independently reviewed the imaging. Concur with radiologist report. - small well corticated lesion proximal humerus, likely benign. Coding Level of Care Code Off vis,new,level 4 Diagnoses Right shoulder pain M25.511 Assessment and Plan Assessment and Plan (1) Right shoulder pain: Status: Acute Plan: AMALIA RICHARDSON is a 54 year old F here today for R shoulder pain. Benign cyst. 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 The cyst appears benign no further treatment for that although could do a repeat x-ray in a year to ensure it is stable. I let the patient know and show the x-rays today. In addition the patient could have a rotator cuff tear given the failure of conservative management over the last 2 to 3 months. Patient declined a cortisone injection I will go ahead and order an MRIto assess for rotator cuff tears tendinitis bursitis or other problems about theshoulder and follow-up after that. The patient understood no further questions or concerns. Patient counselled on non-operative and operative means of treating shoulder pain. Conservative options include but not limited to: 1. Rest and Activity Modification: Giving your shoulder time to heal by avoidingmovements that cause pain can help. This may involve limiting overhead activities or heavy lifting. 2. Physical Therapy: A physical therapist can guide you through exercises that strengthen the muscles around the shoulder, improve flexibility, and reduce strain on the rotator cuff tendon. 3. Ice and Heat Therapy: Applying ice to the shoulder can help reduce swelling and pain, especially after activity. Heat can be helpful to relax tense muscles and improve blood flow before exercises. 4. Anti-Inflammatory Medications: Xxng-wzj-ideocnn medications like ibuprofen ornaproxen can help reduce pain and inflammation in the tendon. 5. Corticosteroid Injections: If the pain is more severe, a steroid injection can reduce inflammation in the shoulder and provide relief for a longer period. 6. Platelet-Rich Plasma (PRP) Injection: This treatment involves using your own blood to promote healing in the tendon. The plasma is rich in growth factors that can encourage tissue repair. 7. TENS (Transcutaneous Electrical Nerve Stimulation): This therapy uses a smallelectrical current to help manage pain and promote healing by stimulating nerves. Orders: Orders Upper Ext Joint Only(Routine) Today M25.511 - Pain in right shoulder Medications: New lorazepam (Ativan) take 1 tab 60 mins before MRI, if no effect in 60 mins, then take other tab 0.5 mg PO ONCE 1 day PRN 2 tabs 0RF before mri MDD 2 M25.511 - Pain in right shoulder Ortho Exam General General: Yes no acute distress Neurologic: Yes alert and Yes oriented x3 Psychologic: Yes reasonable and appropriate Right Shoulder Skin/Wound: Yes CDI, No ecchymosis, No erythema and No swelling Testing: Positive Hawkin's, Neer's, AROM-Forward Elevation 0-180, AROM-External Rotation at side 0-60, empty can and belly press normal; Negative Speed's, TTP Biceps, TTP AC Joint, Drop Arm, cross arm or scapular winging SHOULDER: normal motor and sens to ax nerve, and MRU and AIN/PIN. strength 5/5 in FE and ER but painful arc. 11/27/24 1019 <Electronically signed by Zechariah bourgeois MD> Date _ Zechariah Fajardo MD Cosigner Signature: Date (if applicable) CC: ~ [facility] [place] [employer] Work Phone: 1(942) 171-238008-18-2025 Radiology Diagnostic study note [facility] Imaging Services [address] [place] [address] Shoulder min 2 Views MR#: [id number] Acct: [id number] Name: AMALIA RICHARDSON Rep #: [id number] : 1970 F 54 From: Abel Bagley DO PCP: Dr. Kenzie Torrez DO Status: REG CLI Study:Shoulder min 2 Views Date of Exam: 11/26/24 Exam# [id number] Ordering Dr: Zechariah Fajardo MD PROCEDURE: SHOULDER MIN 2 VIEWS 11/26/2024 REASON FOR EXAM: PAIN TECHNIQUE: SHOULDER MIN 2 VIEWS Laterality: Right COMPARISON: None FINDINGS: Bones: There are no fractures or dislocations. A 4 mm lucent lesion is seen in the right radial head with a sclerotic margin. This is most compatible with a benign bony cyst. The visualized right ribs are unremarkable. Joints: Mild arthritic changes are seen involving the acromioclavicular joint. Glenohumeral joint is well preserved. The acromial humeral space is well preserved. The coracoclavicular space is well preserved. Soft tissues: The visualized right lung is clear. Soft tissues are grossly unremarkable. RAD/Shoulder min 2 Views IMPRESSION: The 4 mm lucent lesion in the right radial head has benign features and is most compatible with a benign bony cyst. Mild arthritic changes are seen involving the right acromioclavicular joint. Reading Location: [id number] CC: Dr. Kenzie oTrrez DO; Dr. Zechariah Fajardo MD ~ Gravedigger: Signed [facility]06-19-2025 Evaluation note* Diagnosis Onset Date Resolution Status Admit Date Vasomotor flushing acute September 092024 10:29am History of coronary artery stent placement December 19, 2018 chronic September 27, 2024 10:29am Hyperlipidemia chronic September 27, 2024 10:29am H/O coronary artery bypass surgery May 02, 2018 resolved September 27 10:29am Right shoulder pain acute Augus t 2024 9:21am [facility] [place] [employer] Work Phone: 1(493) 584-790304-08-2025 Evaluation note* Diagnosis Onset Date Resolution Status Admit Date Climacteric acute July 17 2:33pm Encounter for routine gynecological examination noneactive July 17, 2024 2:33pm [facility] Work Phone: 1(177) 598-185304-08-2025 Evaluation note* Diagnosis Onset Date Resolution Status Admit Date Climacteric acute July 17 2:33pm Encounter for routine gynecological examination noneactive July 17, 2024 2:33pm Left breast lump acute July 192024 12:51pm [facility] Work Phone: 1(958) 434-174212-16-2024 History of Present illness Narrative* Michelle Corbin MD - 03/26/2024 10:00 AM EST Rheumatology Clinic Follow Up Note History of Present Illness: Brief History: 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 She was previously on azathioprine for UC, which was discontinued when clinical remission was obtained. Today, Ms. Richardson presents for follow up. She shares that overall she has been doing well. She recalls being told that she had several different rheumatologic diagnoses and sure that one was ever settled on. She no longer experiences any dry eyes or dry mouth symptoms. She will feel generally unwell if she spends too much time in the sun, but has not noticed a skin rash in years. She wonders if she can try stopping the Plaquenil. Medications: She has a current medication list which includes the following prescription(s): aspirin 81 MG Chew Tab chewable tablet, busPIRone 5 MG tablet, Cholecalciferol 50 MCG (1999 UT) capsule, clopidogrel 75 MG Tab tablet, ezetimibe 10 MG tablet, FOLIC ACID PO, Hydroxychloroquine 200 MG tablet, lisinopril 5 MG tablet, metoprolol succinate 25 MG tablet XL, and rosuvastatin 5 MG Tab per tablet. Review of Systems: HEENT, Cardiac, Resp, GI, Skin, Fever negative. Social History: Will be celebrating rehan with her 3 grandchildren. Has another grandchild on the way! Physical Examination: Blood pressure 120/64, pulse 58, resp. rate 12, weight 57.6 kg (127 lb), SpO2 98%. General: Alert, cooperative, appears well, no acute distress. Eyes: Conjunctivae clear, no scleral icterus. Mouth: no oral ulcers. Adequate saliva pooling. Neck: No cervical lymphadenopathy. Lungs: Breathing unlabored, no audible wheezing. CTAB. Heart: Normal rate, regular rhythm. Normal S1 and S2. Neuro: Strength and sensation grossly intact. Psychiatric: Good eye contact, normal affect. Skin: No visible rash, pathological skin lesions, or photosensitivity. Normal nails. Extremities: No periungual erythema. Musculoskeletal: Non-tender to palpation of the small joints of the hands or wrists. No associated joint swelling or warmth. Diagnostic Data: CBC Lab Results Component Value Date WBC 5.53 07/08/2022 HGB 13.2 07/08/2022 HCT 39.1 07/08/2022 PLATELET 252 07/08/2022 MCV 95.6 07/08/2022 EDIF Lab Results Component Value Date RBCDISTRIBU 11.4 07/08/2022 GRNLOCYT 64.0 07/08/2022 LYMPHOCYT 23.1 07/08/2022 MONOCYTELEC 10.3 07/08/2022 EOSINOPHILS 2.0 07/08/2022 BASOPHILS 0.4 07/08/2022 LYMPHOCYTABS 1.28 07/08/2022 EOSINOPHLABS 0.11 07/08/2022 PLATELET 252 07/08/2022 MPV 9.5 07/08/2022 Lab Results Component Value Date CREATSERUM 0.79 07/08/2022 CREATURINE 67.03 07/08/2022 Lab Results Component Value Date ALT 21 07/08/2022 AST 23 07/08/2022 ALKPHOS 66 07/08/2022 BILITOTAL 0.5 07/08/2022 BILIDIRECT 0.1 07/08/2022 Assessment and Plan: Ms. Richardson is a 54 y.o. female who presents for follow up. #History of SCLE Characterized by +SSA, mildly elevated dsDNA (in the setting of negative MEJIA) and mild hypocomplementemia (C4 low on one occasion). Differential includes Sjogren's Syndrome and undifferentiated connective tissue disease. -Sjogren's Monitoring labs with CBC w/ diff, CMP, dsDNA, C3/C4, SPEP, and UA with UPCR - Stop HCQ 300mg daily -- Most recent eye exam: Spring 2023 - Encouraged to use continue sunscreen and sun protective clothing while in the sun in addition to staying in the shade when possible Regarding general care, we appreciate the primary care physician's continuing to follow the patientregarding general care, screening studies, preventative care that are appropriate for age and clinical status. Rheumatology follow up in 6 months, sooner if needed Michelle Corbin MD Physician Allergist Immunologistpatient services coordinator Department of Rheumatology [place], [place] * Riya Mcginnis LPN - 03/26/2024 10:00 AM EST This nurse has verified patient name and . [facility] Procedure note [facility]10-18-2023 Procedure [facility] 01-10-2023 History of Present illness Narrative* Zaynab Eller MD - 01/10/2023 11:00 AM EDT [facility] Visit Chief Complaint [...] to IBD in clinical remission per GI ( Friend ([place])). Hx of microscopic hematuria prev followed with Dr Templeton & Galindo, no biopsy recommended. Review of Systems ROS [...] MEJIA IFA negative SSA+ dsDNA 6 SSB, TURN OUT, Amador negative Anti-histone negative Reviewed outside labs [...] at this time. SCLE associated with +SSA andcan have negative MEJIA - continue HCQ 300mg [...] primary care physician's continuing to follow the patientregarding cancer screening studies and preventative care that are appropriate for age and clinical status. Amalia Richardson was seen and discussed with attending publisher assistant Ayah Allen MD. Zaynab Eller MD Rheumatology Fellow * Tiffany Mckeon LPN - 01/10/2023 11:00 AM EDT This nurse verified pts name and . * Ayah Allen MD - 01/10/2023 11:00 AM EDT I saw and independently examined the patient [...] monitor on current treatment. Ayah Allen MD Physician Allergist Immunologistpatient services coordinator Department of Internal Medicine, Division of Rheumatology [place], [place] documented in this encounterOS[facility] History of Present illness Narrative* Maisha Orozco RN - 07/08/2022 3:40 PM EDT Patient verified name and date of * Lela Leiva MD - 07/08/2022 3:40 PM EDT Encounter date: 07/08/2022 Service location: [facility] [place] Chief Complaint: Chief Complaint Patient presents with Follow-up Patient permits daughter to accompany her to this visit and discuss her medical conditions. 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 Has been off of azathioprine (previously on this per her GI provider for ulcerative colitis) since 07/2021. Sees local exercise physiologist certified annually. Tolerating hydroxychloroquine withoutreported side effects; aware of need for annual eye exam/retinal screening and states cleared for continuation by her supervisor fabrication and assembly/hadoop consultant. Denies new concerns at this time. Note: [...] tablets by mouth at bedtime. (Patient taking differently:Take 100 mg by mouth once.) Allergies: She is allergic to colchicine, statins, sulfa antibiotics, tramadol, and omeprazole. Physical Exam: BP 110/70 (BP Location: Left arm, BP Position: Sitting) Pulse 81 Resp 16 Ht 1.549 m (5' 1) Wt 62.5 kg (137 lb 12.8 oz) [...] 50 or greater -continue follow-up with local exercise physiologist certified -02/2021 hep b immune; 09/2021 hiv and [...] studies appropriate for age and clinical status. Lela Leiva MD Instructor Division of Rheumatology [facility] documented [facility] Instructions* Patient Instructions* Lela Leiva MD - 07/08/2022 3:40 PM EDT Return to clinic in 6 months. (Please note: Dr. Leiva will no longer be at [facility] in the upcoming months) If Dr. Leiva is unavailable in the anticipated time frame of follow-up indicated above, please call [facility] Rheumatology Clinic ( ) to schedule an appointment with another available Senior Audit Manager at this location. documented in this encounterAd[facility]06-21-2022 Instructions* Patient Instructions* Lela Leiva MD - 09/29/2021 9:03 AM EDT Please be advised: For your next visit, I anticipate you will be seeing a different rheumatology provider (along with Dr. Bashir), as I will no longer be in this clinic. As far as I am aware, they do not have schedules for the new rheumatology providers yet; please call [facility] Rheumatology Clinic ( ) at the end of 09/2021 to schedule your next appointment in 02/2022 with the new provider. After that time, please direct medication refill requests to your new provider. documented in this encounterAd[facility]06-21-2022 History of Present illness Narrative* Lela Leiva MD - 09/29/2021 8:40 AM EDT Encounter date: 09/29/2021 Service location: [facility] [place] Chief Complaint: Chief Complaint Patient presents with Follow-up Subjective/Interval History: Since last rheumatology clinic visit, denies recurrence of diffuse rash associated with prior episodes of SCLE. Experienced sunburn of the face over the past weekend when she forgot to re-apply sunscreen. States she was weaned off of azathioprine for ulcerative colitis by her GI Dr. Friend ([place]) in 07/2021. Sees local exercise physiologist certified annually. Denies new concerns at this time. [...] tablets by mouth at bedtime. (Patient taking differently:Take 100 mg by mouth once.) Allergies: She is allergic to colchicine, statins, sulfa antibiotics, tramadol, and omeprazole. Physical Exam: BP 118/72 Pulse 61 Resp 14 Ht 1.549 m (5' 1) Wt 60.9 kg (134 lb 3.2 oz) [...] patient, azathioprine tapered off by outside gi ([facility] [place]); if patient exhibits signs of systemic lupus activity, plan to resume this medication for this separate indication -counseled on importance of regular sun screen use with spf 50 or greater -continue follow-up with local exercise physiologist certified -obtain cbc, bun/cr, lfts, c3/c4, ds dna [...] status. The above was discussed with attending publisher assistant Patsy Bashir DO. Diagnoses/recommendationsmay be modified by the attending physician on attestation. Lela Leiva MD Rheumatology Fellow [facility] Patsy Infante saw, examined and discussed the patient on 09/29/[address] Leiva. I agree withthe history, examination, and medical decision making as noted/edited above. The clinical exam of the patient shows no evidence of any synovitis or rash. Appears to be sunburned. No disease activity despite stopping AZA per GI. She's to call with any flare ups or rashes. All questions were answered. Patsy Bashir DO Department of Internal Medicine Division of Immunology/Rheumatology documented in this encounterAd[facility]09-10-2019 Evaluation note * Diagnosis Onset Date Resolution Status Ulcerative colitis acute Folliculitis chronic Ulcerative colitis acute History of coronary artery stent placement December 102018 chronic Hyperlipidemia chronic H/O coronary artery bypass surgery May 02, 2018 resolved [facility] Work Phone: 1(909) 304-439909-10-2019 Evaluation note* Diagnosis Onset Date Resolution Status Ulcerative colitis acute History of coronary artery stent placement December 102018 chronic Hyperlipidemia chronic H/O coronary artery bypass surgery May 02, 2018 resolved [facility] Work Phone: 1(552) 112-337609-10-2019 Evaluation note* Diagnosis Onset Date Resolution Status History of coronary artery stent placement December 102018 chronic Hyperlipidemia chronic H/O coronary artery bypass surgery May 02, 2018 resolved Vasomotor flushing acute Encounter for routine gyneco logical examination noneactive Ulcerative colitis chronic [facility] Work Phone: Evaluation note* Diagnosis Subacute cutaneous lupus erythematosus- Primary Lupus erythematosus SS-A antibody positive Other and unspecified nonspecific immunological findings Therapeutic drug monitoring Encounter for therapeutic drug monitoring documented [facility] this encounter [facility] noteNo assessment information available [facility] Work Phone: Evaluation note* Diagnosis Subacute cutaneous lupus erythematosus- Primary Lupus erythematosus SS-A antibody positive Other and unspecified nonspecific immunological findings Long-term use of hydroxychloroquine Therapeutic drug monitoring Encounter for therapeutic drug monitoring [facility] encounter [facility]* Diagnosis Subacute cutaneous lupus erythematosus- Primary Lupus erythematosus SS-A antibody positive Other and unspecified nonspecific immunological findings Long-term use of hydroxychloroquine documented [facility] this encounter [facility]* Diagnosis Onset Date Resolution Status Encounter for routine gynecological examination noneactive [facility] Work Phone: Evaluation note* Diagnosis SS-A antibody positive- Primary Other and unspecified nonspecific immunological findings Subacute cutaneous lupus erythematosus Lupus erythematosus documented [facility] this encounter [facility] Author Lb Sands [facility] January 26, 2023 7:14am Note Date/Time January 26, 2023 7 :14am [facility] Medical Records Department [address] [place] [address] History & Physical Exam 01/26/23 0714 MR#: [id number] Acct: [id number] Name: AMALIA RICHARDSON Rep #:[id number] : 1970 53 From: Lb Sands DO PCP: Dr. Kenzie Torrez, DO Status:[facility] Location: [place] [address] History and Physical Date of Admission: 01/26/23 f/u UC Details: AMALIA RICHARDSON, is a 52 F who presents to the office today for 6 month f/u ulcerative colitis. She continues to do well since discontinuing azathioprine in Spring 2021, she reports being symptom free.? She had been on azathioprine for over 20 years. She denies abdominal pain, diarrhea or constipation, melena or hematochezia. She remains on probiotics.? Sed rate and CRP were normal in September 2021; fecal lactoferrin was positive, stool calprotectin was negative.? Next colonoscopy will be due December 2022.? She takes amazing greens probiotic supplement daily.? She exercises regularly and eats a very healthy diet. She remains on Plaquenil for lupus. She will be establishing with a new publisher assistant. 01/05/2021 colonoscopy: two 5 mm polyps in sigmoid colon, otherwise colon and examined ileum normal Microscopic diagnosis: Neither hyperplastic nor adenomatous change identified on1 polyp; the other polyp was colonic mucosa with focal hyperplastic change; no pathology in terminal ileum, ascending colon, transverse colon, or descending colon; rectum biopsy colonic mucosa with focal hyperplastic change ROS Const Constitutional: No fatigue ENT ENT: No difficulty swallowing Gastro GI: Positive for bloating and excessive flatus; No abdominal pain, belching, change in bowel habits, change in stool character, coffee ground emesis, constipation, cramping, diarrhea, heartburn, difficulty swallowing, feeling full early, incontinent of stools, Vomiting blood/hematemesis, Blood in stool, loose stools, Black,tarry stools, nausea/dyspepsia, pain with swallowing, vomiting or other Musc Musculoskeletal: No joint pain Skin Skin: No yellowing of the eye or itchy eyes Psych Psychiatric: No anxiety and No depression Endo Endocrine: No fatigue Aller/Imm Allergy/Immunologic: No itchy eyes Vlad/Lymp Hematologic/Lymphatic: Positive for easy bruising; No easy bleeding Exam Const General: cooperative, healthy appearing and comfortable Orientation: alert, awake and oriented x3 Quality Reporting Tobacco Screening ([facility]) Smoking Status: Never smoker Assessment and Plan Assessment and Plan (1) Ulcerative colitis: Status: Chronic Plan: Doing very well, even during a stressful time period, no symptoms. Will update labs, inflammatory markers in blood and stool. Due for colonoscopy in 12/2022. Orders: Orders CRP 04/30/22 K51.90 - Ulcerative colitis, unspecified, without complications Erythrocyte Sed Rate 04/30/22 K51.90 - Ulcerative colitis, unspecified, without complications Calprotectin, Stool 04/30/22 K51.90 - Ulcerative colitis, unspecified, without complications Stool Lactoferrin/WBC 04/30/22 K51.90 - Ulcerative colitis, unspecified, withoutcomplications, K58.9 - Irritable bowel syndrome without diarrhea I have examined the patient and the H&P has been reviewed. There are no clinicalchanges since date of exam. 01/26/23 0714 <Electronically signed by Lb Sands DO> Cosigner Signature (if applicable): CC: Dr. Kenzie Torrez DO; Lb Sands DO~ Signed [facility] Work Phone: Reason for referral (narrative)* Consultation (Routine) - Patient to Arrange Specialty Diagnoses / Procedures Referred By Chad basilio Referred To Contact Rheumatology Diagnoses Subacute cutaneous lupus erythematosus Patsy Bashir DO [address] [address] Referral ID Status Reason Start Date Expiration Date V isits Requested Visits Authorized [id number] Patient to Arrange 09/29/2021 10/24/2022 1 1 [facility] (narrative)No reason for referral information [facility] Work Phone: Summary Purpose Family History Relationship Condition Age at Onset Recorded Date/T robert Not Specified Unknown father Cardiac disease Unknown Hypertension Unknown Hyperlipidemia Unknown mother Cardiac disease Unknown Disorder of intestine Unknown Disorder of respiratory system Unknown brother Lupus Unknown grandmother Cardiac disease Unknown Diabetes mellitus Unknown Relationship Condition Age at Onset Recorded Date/T robert Not Specified Unknown father Cardiac disease Unknown Hypertension Unknown Hyperlipidemia Unknown mother Cardiac disease Unknown Disorder of intestine Unknown Disorder of respiratory system Unknown Malignant neoplasm of breast Unknown brother Lupus Unknown grandmother Cardiac disease Unknown Diabetes mellitus Unknown Advance Directives Advance Directive Response Recorded Date/ Time Advance Directives No May 01, 2021 11:38am Living Will No May 10 3:36am Power of Operating Engineer No May 10, 2021 3:36am Latest Code Status on File Code Status Date Activated Date Inactivated Comments Full Code 05/02/2018 11:14 AM Full Code 04/17/2018 10:57 PM 05/02/2018 11:14 AM Advance Directive Response Recorded Date/ Time Advance Directives No May 01, 2021 10:38am Living Will No April 13 12:13pm Power of Operating Engineer No April 13, 023 12:13pm Latest Code Status on File Code Status Date Activated Date Inactivated Comments Full Code 05/02/2018 11:14 AM Code Status History Code Status Date Activated Date Inactivated Comments Full Code 04/17/2018 10:57 PM 05/02/2018 11:14 AM Advance Directive Response Recorded Date/ Time Advance Directives No May 01, 2021 11:38am Living Will No April 13 1:13pm Power of Operating Engineer No April 13, 2 023 1:13pm Advance Directive Response Recorded Date/ Time Name of Medical Power of Operating Engineer January 20, 2023 12:42pm Advance Directives No May 01, 2021 11:38am Living Will Yes January 20 12:42pm Power of Operating Engineer Yes January 20, 2023 12:42pm Advance Directive Response Recorded Date/ Time Name of Medical Power of Operating Engineer January 20, 2023 11:42am Name of Medical Power of Operating Engineer March 22, 2023 10:50am Advance Directives No May 01, 2021 10:38am Living Will Yes March 22, 023 10:50am Power of Operating Engineer Yes March 22, 2023 10:50am Advance Directive Response Recorded Date/ Time Name of Medical Power of Operating Engineer March 22, 2023 11:50am Advance Directives No May 01, 2021 11:38am Living Will Yes March 22, 023 11:50am Power of Operating Engineer Yes March 22, 2023 11:50am Date Activated Date Inactivated Comments 05/02/2018 11:14 AM Date Activated Date Inactivated Comments 04/17/2018 10:57 PM 05/02/2018 11:14 AM Advance Directive Response Recorded Date/ Time Advance Directives No May 01, 2021 11:38am Advance Directive Response Recorded Date/ Time Advance Directives No November 26, 2024 9:23am Chief Complaint and Reason for Visit Chief Complaint 3 M FU VULVAR CYST chest pain 3 mon fu EORDER 6 M FU Reason for Visit Ulcerative colitis Folliculitis Ulcerative colitis History of coronary artery stent placement Hyperlipidemia H/O coronary artery bypass surgery Chief Complaint 3 M FU VULVAR CYST chest pain 3 mon fu EORDER 6 M FU INT LABS Reason for Visit Ulcerative colitis Folliculitis Ulcerative colitis History of coronary artery stent placement Hyperlipidemia H/O coronary artery bypass surgery Chief Complaint 3 mon fu EORDER 6 M FU INT LABS INT LABS Reason for Visit Ulcerative colitis History of coronary artery stent placement Hyperlipidemia H/O coronary artery bypass surgery Chief Complaint 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 SCREENING ELETRICAL SHOCK Chief Complaint SCREENING ELETRICAL SHOCK 6 m fu (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) CP 6 MO FU Reason for Visit History of coronary artery stent placement Hyperlipidemia H/O coronary artery bypass surgery Vasomotor flushing Encounter for routine gynecological examination Ulcerative colitis Chief Complaint EMPLOYEE HEALTH INT LABS Chief Complaint EMPLOYEE HEALTH INT LABS SCREENING Chief Complaint SCREENING ABN RT BREAST MAMM First metatarsal osteotomy bunionec SOB Chief Complaint First metatarsal ost eotomy bunionec SOB 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) Reason for Visit Encounter for routin e gynecological examination Chief Complaint Admit Date EARS CLOGGED/ PAIN March 28, 2024 6:32am 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) July 17, 2024 2:33 pm BREAST CONSULT July 19, 2024 12: 51pm Reason for Visit Admit Date Climacteric July 17, 2024 2:33 pm Encounter for routine gynecological exam ination July 17, 2024 2:33pm Chief Complaint Admit Date 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) July 17, 2024 2:33 pm BREAST CONSULT July 19, 2024 12: 51pm 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 September 10:29am Reason for Visit Admit Date Climacteric July 17, 2024 2:33 pm Encounter for routine gynecological exam ination July 17, 2024 2:33pm Left breast lump July 19, 2024 12: 51pm Chief Complaint Admit Date 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 September 10:29am 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 November 22, 2024 6: 53am RIGHT SHOULDER November 27, 2024 9: 21am Reason for Visit Admit Date Vasomotor flushing September 27, 2024 10:2 9am History of coronary artery stent placeme nt September 27, 2024 10:29am Hyperlipidemia September 27, 2024 10:2 9am H/O coronary artery bypass surgery September 27, 2024 10:29am Right shoulder pain November 27, 2024 9: 21am Additional Source Comments INFORMATION SOURCE (unrecogn ized section and content) DATE CREATED AUTHOR 05/15/2019 [facility] DATE CREATED AUTHOR AUTHOR'S ORGANIZ ATION 04/02/2024 [facility] DATE CREATED AUTHOR AUTHOR'S ORGANIZ ATION 12/01/2024 [facility] Goals (unrecognized section and content) Goals may be documented in a n alternate sectionGoals may be documented in an alternate sectionGoals may be documented in an alternate sectionGoals may be documented in an alternate sectionGoals may be documented in an alternate sectionGoals may be documented in an alternate sectionGoals may be documented in an alternate sectionGoals may be documented in an alternate sectionGoals may be documented in an alternate sectionGoals may be documented in an alternate section Reason for Visit (unrecogniz ed section and content) Reason Comments Follow-up Reason Comments Follow-up Reason Comments New Patient Reason Comments New Patient Here to establish ca re with physician. Previously seen by Dr. Eller & Dr. Leiva. Subacute cutaneous lupus erythematosus. Care Teams (unrecognized sec tion and content) Pantry Goods Maker Relationship Specialty Start Date End Date Kenzie Torrez DO [address] [place] [address] PCP - General Family Medicine 04/27/18 Kenzie Torrez DO [address] [place] [phone] Family Medicine 04/18/18 Bry Pelaez MD [address] [facility] [place] [address] Cardiovascular Medicine 04/18/18 Lucrecia Balbuena MD [address] [place] [address] Urologist Urology 02/25/20 Lela Leiva MD [address] [place], [place] [id number] Consulting Fellow Rheumatology 09/29/21 09/29/21 Team Status: Active Member Role Status Dates Dr. Kenzie Torrez DO Family Provider Active Dr. Kenzie Torrez DO Primary Care Provider Active Team Status: Inactive Member Role Status Dates Dr. Kenzie Torrez DO Primary Care Provider, Referring P rovider Active Fabiola Pryor LOADER HELPER SORTING YARD, LOADER HELPER SORTING YARD-C Attending Provider Active Team Status: Inactive Member Role Status Dates Dr. Kenzie Torrez DO Primary Care Provider, Referring P rovider Active Dana Crisostomo CNM Attending Provider Active Team Status: Inactive Member Role Status Dates Dr. Kenzie Torrez DO Primary Care Provider, Referring P rovider Active Dr. Bry Pelaez MD Attending Provider Active Team Status: Active Member Role Status Dates Dr. Kenzie Torrez DO Primary Care Provider Active Dr. Bry Pelaez MD Attending Provider Active Team Status: Inactive Member Role Status Dates Dr. Kenzie Torrez DO Primary Care Provider Active Jazzy Diaz LOADER HELPER SORTING YARD, LOADER HELPER SORTING YARD-C Attending Provider Active Team Status: Inactive Member Role Status Dates Dr. Kenzie Torrez DO Primary Care Provider Active Dr. Eladio Matta DO Attending Provider, Emergency Provider Active Team Status: Inactive Member Role Status Dates Dr. Kenzie Torrez DO Primary Care Provider Active Dr. Bry Pelaez MD Attending Provider Active Pantry Goods Maker Relationship Specialty Start Date End Date ShanKenzie [address] [place] [phone] PCP - General Family Medicine 04/27/18 Kenzie Torrez DO [address] [place] [phone] Family Medicine 04/18/18 [place] [address] [place] [address], [place] [phone] Cardiovascular Disease 04/18/18 Lucrecia Balbuena MD [address] [place] [phone] Urologist Urology 02/25/20 Lela Leiva MD [address] [place] [address] Senior Audit Manager Rheumatology 07/08/22 Team Status: Active Member Role Status Dates Dr. Kenzie Torrez DO Primary Care Provider Active Health Risk Assessment Attending Provider, Referring Radha bassett Active Team Status: Inactive Member Role Status Dates Dr. Kenzie Torrez DO Primary Care Provider Active Dr. Lb Sands , Attending Provider, Referring Provider Active Pantry Goods Maker Relationship Specialty Start Date End Date Kenzie Torrez DO [address] [place] [phone] PCP - General Family Medicine 04/27/18 Kenzie Torrez DO [address] [place] [phone] Family Medicine 04/18/18 Bry Pelaez MD [address] [place] [address] Cardiovascular Disease 04/18/18 Lucrecia Balbuena MD [address] [place] [address] Urologist Urology 02/25/20 Team Status: Active Member Role Status Dates Dr. Kenzie Torrez DO Primary Care Provider, Referring P rovider Active Dr. Lb Sands , Attending Provider, Other Prov ider Active Team Status: Active Member Role Status Dates Dr. Kenzie Torrez DO Primary Care Provider Active Dana Crisostomo CNM Attending Provider, Referring Pr ovider Active Team Status: Inactive Member Role Status Dates Dr. Kenzie Torrez DO Primary Care Provider, Referring P rovider Active Dr. Lb Sands , Attending Provider Active Team Status: Inactive Member Role Status Dates Dr. Kenzie Torrez DO Primary Care Provider Active Dana Crisostomo CNM Attending Provider, Referring Pr ovider Active Team Status: Inactive Member Role Status Dates Dr. Kenzie Torrez DO Primary Care Provider Active Dr. Ramesh Betancourt DPM Attending Provider, Referrin g Provider Active Team Status: Active Member Role Status Dates Dr. Kenzie Torrez DO Primary Care Provider Active Dr. Bry Pelaez MD Attending Provider, Referring Pro vider Active Team Status: Inactive Member Role Status Dates Dr. Kenzie Torrez DO Primary Care Provider Active Dr. Bry Pelaez MD Attending Provider, Referring Pro vider Active Team Status: Inactive Member Role Status Dates Dr. Kenzie Torrez DO Primary Care Provider Active Dana Crisostomo CNM Attending Provider Active Pantry Goods Maker Relationship Specialty Start Date End Date Kenzie Torrez DO [address] [place] [phone] PCP - General Family Medicine 04/27/18 Kenzie Torrez DO [address] [place] [address] Family Medicine 04/18/18 Bry Pelaez MD [address] [place] [address] Cardiovascular Disease 04/18/18 Lucrecia Balbuena MD [address] [place] [address] Urologist Urology 02/25/20 Team Status: Inactive Member Role Status Dates Dr. Kenzie Torrez DO Primary Care Provider Active Start: March 28, 2024 End: March 28, 2024 Dr. Kenzie Torrez DO Referring Provider Active St art: March 28, 2024 End: March 28, 2024 Lul Merlos PA, PA Attending Provider Active Start: March 28, 2024 End: March 28, 2024 Team Status: Inactive Member Role Status Dates Dr. Kenzie Torrez DO Primary Care Provider Active Start: July 17, 2024 End: July 17, 2024 Dr. Kenzie Torrez DO Referring Provider Active St art: July 17, 2024 End: July 17, 2024 LIDIA Mills Attending Provider Active Start: July 17, 2024 End: July 17, 2024 Team Status: Inactive Member Role Status Dates Dr. Kenzie Torrez DO Primary Care Provider Active Start: July 17, 2024 End: July 17, 2024 LIDIA Mills Attending Provider Active Start: July 17, 2024 End: July 17, 2024 LIDIA Mills Referring Provider Active Start: July 17, 2024 End: July 17, 2024 Team Status: Inactive Member Role Status Dates Dr. Kenzie Torrez DO Primary Care Provider Active Start: July 19, 2024 End: July 19, 2024 Dr. Kenzie Torrez DO Referring Provider Active St art: July 19, 2024 End: July 19, 2024 Dr. Nancy Lim MD Attending Provider Active Start: July 19, 2024 End: July 19, 2024 Team Status: Active Member Role Status Dates Dr. Kenzie Torrez DO Primary Care Provider Active Team Status: Inactive Member Role Status Dates Dr. Kenzie Torrez DO Primary Care Provider Active Start: September 27, 2024 End: September 27, 2024 Dr. Kenzie Torrez DO Referring Provider Active St art: September 27, 2024 End: September 27, 2024 Dr. Bry Pelaez MD Attending Provider Active S tart: September 27, 2024 End: September 27, 2024 Team Status: Active Member Role/Relationship Status Dates Dr. Kenzie Torrez DO Primary Care Provider Active Team Status: Inactive Member Role/Relationship Status Dates Dr. Kenzie Torrez DO Primary Care Provider Active Start: September 27, 2024 End: September 27, 2024 Dr. Kenzie Torrez DO Referring Provider Active St art: September 27, 2024 End: September 27, 2024 Dr. Bry Pelaez MD Attending Provider Active S tart: September 27, 2024 End: September 27, 2024 Team Status: Active Member Role/Relationship Status Dates Dr. Kenzie Torrez DO Primary Care Provider Active Start: November 22, 2024 Health Risk Assessment Attending Provider Active Start: November 22, 2024 Health Risk Assessment Referring Provider Active Start: November 22, 2024 Team Status: Active Member Role/Relationship Status Dates Dr. Kenzie Torrez DO Primary Care Provider Active Start: November 26, 2024 Zechariah Fajardo MD Attending Provider Active St art: November 26, 2024 Zechariah Fajardo MD Referring Provider Active St art: November 26, 2024 Team Status: Inactive Member Role/Relationship Status Dates Dr. Kenzie Torrez DO Primary Care Provider Active Start: November 27, 2024 End: November 27, 2024 Dr. Kenzie Torrez DO Referring Provider Active St art: November 27, 2024 End: November 27, 2024 Zechariah Fajardo MD Attending Provider Active St art: November 27, 2024 End: November 27, 2024 Team Status: Inactive Member Role/Relationship Status Dates Dr. Kenzie Torrez DO Primary Care Provider Active Start: November 26, 2024 End: November 26, 2024 Zechariah Fajardo MD Attending Provider Active St art: November 26, 2024 End: November 26, 2024 Zechariah Fajardo MD Referring Provider Active St art: November 26, 2024 End: November 26, 2024 FOR RECORDS PERTAINING TO PATIENTS WHO ARE [...] BE BASED ON THE PRIMARY CLINICAL RECORDS. [facility] [employer], [facility]. provides no warranty or guarantee of the accuracy or completeness of information in this document.
--- OUTSIDE RECORDS SUMMARY | 2024-12-05 07:16 | XMS RPT_ITS | CCD ---
Author Organization [facility] CliniSysd Care Team Providers Care Industrial Relations Specialist Name Role Phone Urbanna SHOP HELPER, Jazzy Jackson Unavailable Dr. Kenzie Torrez Primary Care Provider Dr. Kenzie Torrez Referring Provider Friend, Dr. Asher Attending Provider Dr. Renetta Chin Attending Provider Dr. Bry Pelaez Attending Provider [phone] Kenzie Torrez Primary Care Provider Dr. Kenzie Torrez Referring Provider Shavon, Dr. Asher Attending Provider Shan COHEN Kenzie Unavailable Bry Pelaez MD Unavailable Kenzie Torrez DO Primary Care Provider Sree LAFLEUR, Lucrecia Unavailable Cali LAFLEUR, Lela Unavailable Dr. Kenzie Torrez Primary Care Provider Dr. Kenzie Torrez Referring Provider Dr. Bry Pelaez Attending Provider SHASHI Crisostomo Attending Provider Roya SHOP HELPER, SHOP HELPER-C Fabiola Teran Attending Provider [phone] Shan COHEN Kenzie Unavailable Bry Pelaez MD Unavailable Kenzie Torrez DO Primary Care Provider Sree LAFLEUR, Lucrecia Unavailable Cali LAFLEUR, Lela Unavailable Malys DO, Kenzie Unavailable Latanya LAFLEUR, [facility] S Unavailable Malys DO, Kenzie Primary Care Provider rSee LAFLEUR, Lucrecia Unavailable Shan, Dr. Espino Primary Care Provider Shan, Dr. Espino Referring Provider Friend, Dr. Asher Attending Provider Friend, Dr. Asher Other Provider Shan, Dr. Espino Primary Care Provider Shan, Dr. Espino Referring Provider Friend, Dr. Asher Attending Provider [phone] Friend, Dr. Asher Other Provider Shan, Dr. Espino Primary Care Provider Shan, Dr. Espino Referring Provider SHASHI Crisostomo Attending Provider [phone] MICHELLE CORBIN A Attending Unavailable MALDYLAN, KENZIE Primary Care Unavailable KATEL, NIPEN Referring Unavailable KATEL, NIPEN Referring Unavailable CORBIN, MICHELLE A Attending Unavailable JOSE DAVIDYS, KENZIE Primary Care Unavailable Shan DO, Dr. Espino Primary Care Provider [phone] Shan COHEN, Dr. Espino Referring Provider Lul Leiva Attending Provider Margaret Flynn Attending Provider [phone] Margaret Flynn Referring Provider [phone] Raphael LAFLEUR, Dr. Cruz Attending Provider Shan COHEN, Dr. Espino Primary Care Provider [phone] Shan COHEN, Dr. Espino Referring Provider Latanya LAFLEUR, Dr. Londono Attending Provider Shan COHEN, Dr. Espino Primary Care Provider [phone] Shan COHEN, Dr. Espino Referring Provider [phone] Assessment, Health Risk Attending Provider Unava ilable Assessment, Health Risk Referring Provider Unava ilable Zechariah Fajardo MD Attending Provider Zechariah Fajardo MD Referring Provider Assessment, Health Risk Referring Unavaila ble Assessment, [...] Unavailable Malys, Kenzie Primary Care Unavailable Latanya, [facility] Attending Unavailable Malys, Kenzie Referring Unavailable Malys, Kenzie Primary Care Unavailable Zechariah Fajardo Attending Unavailable Malys, Kenzie Referring Unavailable Malys, Kenzie Primary Care Unavailable Zechariah Fajardo Attending Unavailable Malys, Kenzie Primary Care Unavailable Danuta Dunn NP Attending Unavailable Malys, Kenzie Primary Care Unavailable Latanya, Bry Consulting Unavailable Latanya, [facility] Referring Unavailable Latanya, Bry Attending Unavailable Malys, Kenzie Referring Unavailable BarkMargaret rick Attending Unavailable Malys, Kenzie Primary Care Unavailable Malys, Kenzie Primary Care Unavailable Crisostomo, Dana Referring Unavailable Kranthi, Dana Attending Unavailable Malys, Kenzie Primary Care Unavailable Kranthi, Dana Referring Unavailable Kranthi, Dana Attending Unavailable Margaret Frederick Referring Unavailable BarkMargaret rick Attending Unavailable Malys, Kenzie Primary Care Unavailable Malys, Kenzie Primary Care Unavailable Latanya, Bry Referring Unavailable Latanya, [facility] Attending Unavailable Allergies Allergy Classification Reported Allergen(s) Allergy Type Date of Onset Reaction(s) Facility (1 source) sulfamethoxazole / trimethoprim drug allergy 04-29-19 17 [facility] (16 sources) traMADol drug allergy 04-29-19 17 Other [facility] (17 sources) [facility]chicine Drug All[facility] 01-09-20 19 [facility] Omeprazole Drug Allergy 05-04-19 19 lupus rash [facility] (16 sources) Sulfonamides (Antibiotic); Translations: [Sulfa (Sulfonamide Antibiotics)] Allergy to substance 07-15-19 22 Nausea/Vom/Bridgett rrhea [facility] Comment on above: SEVERE VOMITTING AND TACHYCARDIA (16 sources) Lghupvf-Fuk-Pmj Reductase Inhibitor; Translations: [Hvtluad-Yjz-Avj Reductase Inhibitor] Allergy to substance 07-15-19 fever, abn liver function test [facility] (4 sources) Hmg-Coa Reductase Inhibitors (Statins) Propensity to adverse reactions to drug 04-17-19 [address] [facility] (4 sources) Sulfonamides (Antibiotic) Propensity to adverse reactions to drug 04-17-19 19 Nausea and Vomiting, Tachycardia [facility] (4 sources) traMADol Drug Allergy 04-17-19 19 Nausea and Vomiting, Dizzy/Vertigo [facility] (2 sources) [place]chicine Drug Allergy 01-09-20 19 [facility] [place] Drug Allergy 11-28-[address] [facility] (1 source) Omeprazole Drug Allergy 11-28-[address] [facility] (1 source) traMADol Drug Allergy 11-28-[address] [facility] Medications Current Medications Medication Drug Class(es) [...] one tablet alternating two tablets QOD levonorgestrel 0.607123 mg/hr intrauterine system (20 sources) Progestin, Progestin-containing [...] Take one tab Twice daily AMOXICILLIN-POT CLAVULANATE [id number] Tim REESE aspirin 81 mg delayed release [...] 50 MG T ABS 150mg daily AZATHIOPRINE [id number] Mariel Varela LPN Start: 04-24-2013 End: 04-20-2017 [...] Coronary atherosclerosis; Translations: [Atherosclerotic heart disease of tanana coronary artery with unspecified angina pectoris] Onset: [...] (2 sources) Drug therapy finding; Translations: [Other alf (current) drug therapy] Episodic Other circulatory disease [...] Episodic Comment on above: recommended Relizen from [facility] for non-hormonal support Residual codes; unclassified (1 source) Flushing; Translations: [Flushing] 04-28-2022 Episodic Spondylosis; intervertebral disc disorders; other back problems (15 sources) Acute thoracic back pain; Translations: [Dorsalgia, unspecified] 05-18-2021 Episodic Systemic lupus erythematosus and connective tissue disorders (15 sources) Lupus erythematosus; Translations: [Systemic lupus erythematosus, unspecified] 08-25-2020 Chronic Comment on above: sees crosscutter rolled glass Past or Other Problems Problem Classification Problem Date Documented Date Episodic/Chronic Coronary atherosclerosis and other heart disease (9 sources) Presence of coronary angioplasty implant and graft; Translations: [Percutaneous transluminal coronary angioplasty status] Onset: Episodic Other aftercare (4 sources) Long-term current use of immunosuppressive drug; Translations: [Other alf (current) drug therapy] Onset: 9 06-12-2018 Episodic [...] Facility Orthopedic Visit Reporton Orthopedic Visit Report [facility] [address] [place] [id number] OFFICE VISIT Date of Service: 11/27/24 MR#: [id number] Acct: [id number] Name: AMALIA RICHARDSON Rep #: [id number] : 1970 Provider: Dr. Zechariah norton MD Age/Sex: 54/F Location: [facility] [place] Status: Signed Intake Vital Signs 09/27/24 10:30 [...] omeprazole Allergy (Verified 11/27/24 09:36) lupus rash Vsacbys-BLH-XuR Reductase Inhibitor (Wmoeksx-Btl-Zhz Reductase Inhibitor) Allergy (Verified 11/27/24 09:36) fever, abn liver function test Sulfa (Sulfonamide Antibiotics) Allergy (Verified 11/27/24 09:36) Nausea/Vom/Diarrhea tramadol HCl (From [facility]) Adverse Reaction (Verified 11/27/24 09:36) Other Medications [...] Elevated LFTs Atherosclerosis of coronary artery of tanana heart with angina pectoris Surgical History Hx [...] 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 history: 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 no cancers Supplemental Info [facility] Services [address] [place] [address] Shoulder min 2 Views MR#: [id number] Acct: [id number] (more content not included)... Normal [facility] Shoulder min 2 Viewson 11-26 Shoulder min 2 Views [facility] [address] [place] [address] Shoulder min 2 Views MR#: [id number] Acct: [id number] Name: AMALIA RICHARDSON Rep #: [id number] : 1970 F 54 From: Alexia Schwartz PCP: Dr. Kenzie Torrez DO Status: REG CLI Study: Shoulder min 2 Views Date of Exam: 11/26/24 Exam# [id number] Ordering Dr: Zechariah Fajardo MD PROCEDURE: SHOULDER [...] involving the right acromioclavicular joint. Reading Location: [id number] CC: Dr. Kenzie Torrez DO; Dr. Zechariah Fajardo MD Maintenance Pipefitter: Signed Normal [facility] Absolute lymphocyte countOrd ered By: HEALTH ASSESSMENT on 11-22-2024 Lymphocytes Auto (Unsp spec) [#/Vol] 1.47 10*3/uL 0.83-4.51 [facility] Absolute neutrophil countOrd ered By: HEALTH ASSESSMENT on 11-22-2024 Neutrophils (Bld) [#/Vol] 3.6 10*3/uL 2.0-7.7 [facility] Absolute nucleated red blood cell countOrdered By: HEALTH ASSESSMENT on 11-22-2024 Nucleated RBC (Bld) [#/Vol] 0.00 10*3/uL 0-5 [facility] Anion gap in Serum or Plasma Ordered By: HEALTH ASSESSMENT on 11-22-2024 Anion gap [Moles/Vol] 10 mmol/L 5-15 [facility] BUN/creatinine ratioOrdered By: HEALTH ASSESSMENT on 11-22-2024 Urea nitrogen/Creatinine [Mass ratio] 22.6 mg/mg High 10-20 [facility] Bilirubin Test strip Ql (U)O rdered By: HEALTH ASSESSMENT on 11-22-2024 Bilirubin Ql (U) Negative Negative [facility] Bilirubin directOrdered By: HEALTH ASSESSMENT on 11-22-2024 Bilirubin.direct [Mass/Vol] 0.20 mg/dL 0.00-0.[address] [facility] Bilirubin, totalOrdered By: HEALTH ASSESSMENT on 11-22-2024 Bilirubin [Mass/Vol] 0.47 mg/dL 0.00-1.30 [facility] CBC, Employeeon 11-22-2024 Absolute Lymph 1.47 X10 3/uL Normal 0.83-4.51 [facility] Comment on above: Performed By: #### L 100.0200, L400.0100, L500.2900 #### [facility] [address] [place], [address] Absolute Neut 3.6 X10 3/uL Normal 2.0-7.7 [facility] Comment on above: Performed By: #### L 100.0200, L400.0100, L500.2900 #### [facility] [address] [place], [address] Basophils/100 WBC (Bld) 0.7 % Normal 0-1 [facility] Comment on above: Performed By: #### L 100.0200, L400.0100, L500.2900 #### [facility] [address] [place], [address] Eosinophils/100 WBC (Bld) 2.2 % Normal 0-5 [facility] Comment on above: Performed By: #### L 100.0200, L400.0100, L500.2900 #### [facility] [address] [place], [address] Erythrocyte distribution width (RBC) [Ratio] 11.4 % Low 11.6-14.6 [facility] Comment on above: Performed By: #### L 100.0200, L400.0100, L500.2900 #### [facility] [address] [place], [address] Hematocrit (Bld) [Volume fraction] 42.8 % Normal 37-47 [facility] Comment on above: Performed By: #### L 100.0200, L400.0100, L500.2900 #### [facility] [address] [place], [address] Hemoglobin (Bld) [Mass/Vol] 14.5 g/dL Normal 12.0-15. 0 [facility] Comment on above: Performed By: #### L 100.0200, L400.0100, L500.2900 #### [facility] [address] [place], [address] Lymphocytes/100 WBC (Bld) 25.2 % Normal 19-41 [facility] Comment on above: Performed By: #### L 100.0200, L400.0100, L500.2900 #### [facility] [address] [place], [address] MCH (RBC) [Entitic mass] 31.9 pg Normal 27.0-32.0 [facility] Comment on above: Performed By: #### L 100.0200, L400.0100, L500.2900 #### [facility] [address] [place], [address] MCHC (RBC) [Mass/Vol] 33.9 g/dL Normal 32-36 [facility] Comment on above: Performed By: #### L 100.0200, L400.0100, L500.2900 #### [facility] [address] [place], [address] MCV (RBC) [Entitic vol] 94.3 fL Normal 81-99 [facility] Comment on above: Performed By: #### L 100.0200, L400.0100, L500.2900 #### [facility] [address] [place], [address] Monocytes/100 WBC (Bld) 9.9 % Normal 0-10 [facility] Comment on above: Performed By: #### L 100.0200, L400.0100, L500.2900 #### [facility] [address] [place], [address] Neutrophils/100 WBC (Bld) 61.8 % Normal 47-70 [facility] Comment on above: Performed By: #### L 100.0200, L400.0100, L500.2900 #### [facility] [address] [place], [address] NRBC # 0.00 10 3/uL Normal 0-5 [facility] Comment on above: Performed By: #### L 100.0200, L400.0100, L500.2900 #### [facility] [address] [place], [address] Nucleated RBC (Bld) [#/Vol] 0 10*3/uL Normal 0-5 [facility] Comment on above: Performed By: #### L 100.0200, L400.0100, L500.2900 #### [facility] [address] [place], [address] Platelet mean volume (Bld) [Entitic vol] 9.1 fL Normal 6.2-12.0 [facility] Comment on above: Performed By: #### L 100.0200, L400.0100, L500.2900 #### [facility] [address] [place], [address] Platelets (Bld) [#/Vol] 252 10*3/uL Normal 150-450 [facility] Comment on above: Performed By: #### L 100.0200, L400.0100, L500.2900 #### [facility] [address] [place], [address] RBC (Bld) [#/Vol] 4.54 10*6/uL Normal 4.2-5.4 [facility] Comment on above: Performed By: #### L 100.0200, L400.0100, L500.2900 #### [facility] [address] [place], [address] RDW SD 39.7 fl Normal 35.1-43.9 [facility] Comment on above: Performed By: #### L 100.0200, L400.0100, L500.2900 #### [facility] [address] [place], [address] WBC (Bld) [#/Vol] 5.8 10*3/uL Normal 4.4-11.0 [facility] Comment on above: Performed By: #### L 100.0200, L400.0100, L500.2900 #### [facility] [address] [place], [address] Calculated very low density lipoprotein (VLDL) cholesterol measurementOrdered By: HEALTH ASSESSMENT on 11-22-2024 Calculated very low density lipoprotein (VLDL) cholesterol measurement 17 mg/dL 5-40 [facility] Carbon dioxide, total [Moles /volume] in Central venous bloodOrdered By: HEALTH ASSESSMENT on 11-22-2024 CO2 [Moles/Vol] 24.7 mmol/L 21.0-32.0 [facility] Chloride assayOrdered By: HE ALTH ASSESSMENT on 11-22-2024 Chloride [Moles/Vol] 106 mmol/L 98-108 [facility] Employee Profileon CHOL:HDL 2.[address] [facility] Comment on above: Performed By: #### L 100.0200, L400.0100, L500.2900 ####[facility] [address] [place], [address] Cholesterol [Mass/Vol] 146 mg/dL Normal <=200 [facility] Comment on above: Result Comment: Chol esterol level, Desirable <200 mg/dL Borderline high cholesterol 200-239 mg/dL High cholesterol >=240 mg/dL Recommendations of the NCEP Adult Treatment Panel for the following risk-cutoff thresholds for the [place] population. Performed By: #### L 100.0200, L400.0100, L500.2900 ####[facility] [address] [place], [address] Cholesterol in HDL [Mass/Vol] 55 mg/dL Normal [facility] Comment on above: Result Comment: Sharifa onal Cholesterol Education Program (NCEP) guidelines: <40 mg/dL: Low HDL-cholesterol (major risk factor for CHD) >= 60 mg/dL: High HDL-cholesterol (negative risk factor for CHD) HDL-cholesterol is affected by a number of factors, e.g. smoking, exercise, hormones, sex and age. Performed By: #### L 100.0200, L400.0100, L500.2900 ####[facility] [address] [place], [address] Cholesterol in LDL [Mass/Vol] 74 mg/dL Normal [facility] Comment on above: Result Comment: Bord vjqssp=861-889 mg/dL Higher Jhix=406 mg/dL or greater Friedwald Equation for LDL-C Performed By: #### L 100.0200, L400.0100, L500.2900 ####[facility] [address] [place], [address] Cholesterol in VLDL [Mass/Vol] 17 mg/dL Normal 5-40 [facility] Comment on above: Performed By: #### L 100.0200, L400.0100, L500.2900 ####[facility] [address] [place], [address] LDH 166 U/L Normal 84-246 [facility] Comment on above: Performed By: #### L 100.0200, L400.0100, L500.2900 ####[facility] [address] [place], [address] Phosphate [Mass/Vol] 3.3 mg/dL Normal 2.7-4.5 [facility] Comment on above: Performed By: #### L 100.0200, L400.0100, L500.2900 ####[facility] [address] [place], [address] Triglyceride [Mass/Vol] 84 mg/dL Normal [facility] Comment on above: Result Comment: The drugs N-Acetylcysteine and Metamizole may falsely depress this assay. Normal range: <150 mg/dL Borderline High: 150-199 mg/dL High: 200-499 mg/dL Very High: >500 mg/dL Performed By: #### L 100.0200, L400.0100, L500.2900 ####[facility] [address] [place], [address] URIC 5.2 mg/dL Normal 2.6-6.0 [facility] Comment on above: Result Comment: The drugs N-Acetylcysteine and Metamizole may falsely depress this assay. Performed By: #### L 100.0200, L400.0100, L500.2900 ####[facility] [address] [place], [address] Erythrocyte distribution wid th ratioOrdered By: HEALTH ASSESSMENT on 11-22-2024 Erythrocyte distribution width (RBC) [Ratio] 11.4 % Low 11.6-14.6 [facility] Erythrocyte distribution wid th standard deviationOrdered By: HEALTH ASSESSMENT on 11-22-2024 Erythrocyte distribution width (RBC) [Ratio] 39.7 fl 35.1-43.9 [facility] Glomerular filtration rate ( GFR) estimation/1.73 sq m using serum, plasma, or whole bOrdered By: HEALTH ASSESSMENT on 11-22-2024 GFR/1.73 sq M.predicted among non-blacks MDRD (S/P/Bld) [Vol rate/Area] 92 mL/min/{1.73_m2} >60 [facility] Comment on above: mL/min/1.73m2 CKD-EP I Creatinine Equation (2020) Hematocrit Auto (Bld) [Volum e fraction]Ordered By: HEALTH ASSESSMENT on 11-22-2024 Hematocrit (Bld) [Volume fraction] 42.8 % 37-47 [facility] Hemoglobin measurementOrdere d By: HEALTH ASSESSMENT on 11-22-2024 Hemoglobin (Bld) [Mass/Vol] 14.5 g/dL 12.0-15. 0 [facility] Ketones Test strip Ql (U)Ord ered By: HEALTH ASSESSMENT on 11-22-2024 Ketones Ql (U) Negative Negative [facility] LDL calc ser/plasOrdered By: HEALTH ASSESSMENT on 11-22-2024 Cholesterol in LDL [Mass/Vol] 74 mg/dL [facility] Comment on above: Yxsroemeza=522-896 m g/dL & Higher Zaew=201 mg/dL or greaterFriedwald Equation for LDL-C Laboratory - Chemistry and C hemistry - challengeOrdered By: HEALTH ASSESSMENT on 11-22-2024 AST [Catalytic activity/Vol] 25 U/L <32 [facility] Lactate dehydrogenase (LDH) measurementOrdered By: HEALTH ASSESSMENT on 11-22-2024 LDH [Catalytic activity/Vol] 166 U/L 84-246 [facility] MCV (mean corpuscular volume ) determinationOrdered By: HEALTH ASSESSMENT on 11-22-2024 MCV (RBC) [Entitic vol] 94.3 fL 81-99 [facility] Mean corpuscular hemoglobin (MCH) determinationOrdered By: HEALTH ASSESSMENT on 11-22-2024 MCH (RBC) [Entitic mass] 31.9 pg 27.0-32.0 [facility] Mean corpuscular hemoglobin concentration (MCHC) determinationOrdered By: HEALTH ASSESSMENT on 11-22-2024 MCHC (RBC) [Mass/Vol] 33.9 g/dL 32-36 [facility] Mean platelet volume determi nationOrdered By: HEALTH ASSESSMENT on 11-22-2024 Platelet mean volume (Bld) [Entitic vol] 9.1 fL 6.2-12.0 [facility] Neutrophil percentageOrdered By: HEALTH ASSESSMENT on 11-22-2024 Neutrophils/100 WBC (Bld) 61.8 % 47-70 [facility] Nitrite Test strip Ql (U)Ord ered By: HEALTH ASSESSMENT on 11-22-2024 Nitrite Ql (U) Negative Negative [facility] Nucleated red blood cell per centageOrdered By: HEALTH ASSESSMENT on 11-22-2024 Nucleated RBC/100 WBC (Bld) [Ratio] 0 % 0-5 [facility] Platelet countOrdered By: HE ALTH ASSESSMENT on 11-22-2024 Platelets (Bld) [#/Vol] 252 10*3/uL 150-450 [facility] Potassium measurement (mass/ volume)Ordered By: HEALTH ASSESSMENT on 11-22-2024 Potassium (Unsp spec) [Mass/Vol] 4.3 mmol/L 3.3-5.1 [facility] Protein Test strip Ql (U)Ord ered By: HEALTH ASSESSMENT on 11-22-2024 Protein Ql (U) 15 mg/dl High Negative [facility] RBC Auto (Bld) [#/Vol]Ordere d By: HEALTH ASSESSMENT on 11-22-2024 RBC (Bld) [#/Vol] 4.54 10*6/uL 4.2-5.4 [facility] Screening total cholesterol/ high density lipoprotein (HDL) cholesterol ratioOrdered By: HEALTH ASSESSMENT on 11-22-2024 Cholesterol.total/Cholester ol in HDL [Mass ratio] 2.64 {ratio} [facility] Serum creatinine measurement (mass/volume)Ordered By: HEALTH ASSESSMENT on 11-22-2024 Creatinine [Mass/Vol] 0.76 mg/dL 0.70-1.20 [facility] Serum globulin measurementOr dered By: HEALTH ASSESSMENT on 11-22-2024 Globulin (S) [Mass/Vol] 2.2 g/dL 2.2-4.2 [facility] Serum glucose measurement (m ass/volume)Ordered By: HEALTH ASSESSMENT on 11-22-2024 Glucose [Mass/Vol] 100 mg/dL High 70-99 [facility] Serum or plasma alanine cruz otransferase (ALT) measurementOrdered By: HEALTH ASSESSMENT on 11-22-2024 ALT [Catalytic activity/Vol] 20 U/L <35 [facility] Serum or plasma albumin nestor urement (mass/volume)Ordered By: HEALTH ASSESSMENT on 11-22-2024 Albumin [Mass/Vol] 4.5 g/dL 3.5-5.0 [facility] Serum or plasma albumin/glob ulin mass ratioOrdered By: HEALTH ASSESSMENT on 11-22-2024 Albumin/Globulin [Mass ratio] 2.1 {ratio} 0.9-2.4 [facility] Serum or plasma alkaline koko sphatase measurementOrdered By: HEALTH ASSESSMENT on 11-22-2024 ALP [Catalytic activity/Vol] 83 U/L 35-104 [facility] Serum or plasma calcium nestor urement (mass/volume)Ordered By: HEALTH ASSESSMENT on 11-22-2024 Calcium [Mass/Vol] 9.6 mg/dL 7.6-11.0 [facility] Serum or plasma cholesterol in HDL measurement (mass/volume)Ordered By: HEALTH ASSESSMENT on 11-22-2024 Cholesterol in HDL [Mass/Vol] 55 mg/dL >40 [facility] Comment on above: National Cholesterol Education Program (NCEP) guidelines:<40 mg/dL: Low HDL-cholesterol (major risk factor for CHD)>= 60 mg/dL: High HDL-cholesterol (negative risk factor for CHD)HDL-cholesterol is affected by a number of factors, e.g. smoking, exercise, hormones, sex and age. Serum or plasma cholesterol measurement (mass/volume)Ordered By: HEALTH ASSESSMENT on 11-22-2024 Cholesterol [Mass/Vol] 146 mg/dL <201 [facility] Comment on above: Cholesterol level, D esirable <200 mg/dLBorderline high cholesterol 200-239 mg/dLHigh cholesterol >=240 mg/dLRecommendations of the NCEP Adult Treatment Panel for the following risk-cutoff thresholds for the [place] population. Serum or plasma urea nitroge n measurement (mass/volume)Ordered By: HEALTH ASSESSMENT on 11-22-2024 Urea nitrogen [Mass/Vol] 17 mg/dL 4-19 [facility] Serum or plasma uric acid me asurement (mass/volume)Ordered By: HEALTH ASSESSMENT on 11-22-2024 Urate [Mass/Vol] 5.2 mg/dL 2.6-6.0 [facility] Comment on above: The drugs N-Acetylcy steine and Metamizole may falsely depress this assay. Sodium levelOrdered By: HEAL TH ASSESSMENT on 11-22-2024 Sodium [Moles/Vol] 141 mmol/L 133-145 [facility] Total proteinOrdered By: [facility] ASSESSMENT on 11-22-2024 Protein [Mass/Vol] 6.6 g/dL 5.9-8.4 [facility] Triglycerides measurementOrd ered By: HEALTH ASSESSMENT on 11-22-2024 Triglyceride [Mass/Vol] 84 mg/dL <199 [facility] Comment on above: The drugs N-Acetylcy steine and Metamizole may falsely depress this assay. Normal range: <150 mg/dLBorderline High: 150-199 mg/dLHigh: 200-499 mg/dLVery High: >500 mg/dL Urinalysis, Employeeon 11-22 BILIRUBIN URINE Negative Normal Negative [facility] Comment on above: Order Comment: Urine , Random Performed By: #### L 100.0200, L400.0100, L500.2900 ####[facility] [address] [place], [address] Clarity (U) Clear Normal Clear [facility] Comment on above: Order Comment: Urine , Random Performed By: #### L 100.0200, L400.0100, L500.2900 ####[facility] [address] [place], [address] Color (U) Yellow Normal Yellow [facility] Comment on above: Order Comment: Urine , Random Performed By: #### L 100.0200, L400.0100, L500.2900 ####[facility] [address] [place], [address] GLUCOSE, UR Normal Normal Normal [facility] Comment on above: Order Comment: Urine , Random Performed By: #### L 100.0200, L400.0100, L500.2900 ####[facility] [address] [place], [address] KETONE UR Negative Normal Negative [facility] Comment on above: Order Comment: Urine , Random Performed By: #### L 100.0200, L400.0100, L500.2900 ####[facility] [address] [place], [address] LEUK ESTERASE Negative Normal Negative [facility] Comment on above: Order Comment: Urine , Random Performed By: #### L 100.0200, L400.0100, L500.2900 ####[facility] [address] [place], [address] Nitrite Ql (U) Negative Normal Negative [facility] Comment on above: Order Comment: Urine , Random Performed By: #### L 100.0200, L400.0100, L500.2900 ####[facility] [address] [place], [address] OCCULT BLOOD-UR 10 /ul Abnormal Negative [facility] Comment on above: Order Comment: Urine , Random Performed By: #### L 100.0200, L400.0100, L500.2900 ####[facility] [address] [place], [address] pH UR 6.0 Normal 5.0 - 8.0 [facility] Comment on above: Order Comment: Urine , Random Performed By: #### L 100.0200, L400.0100, L500.2900 ####[facility] [address] [place], [address] PROT DIPSTX 15 mg/dl Abnormal Negative [facility] Comment on above: Order Comment: Urine , Random Performed By: #### L 100.0200, L400.0100, L500.2900 ####[facility] [address] [place], [address] SP.GR. DIPSTX 1.020 Normal 1.002-1.[address] [facility] Comment on above: Order Comment: Urine , Random Performed By: #### L 100.0200, L400.0100, L500.2900 ####[facility] [address] [place], [address] UROBILI Normal Normal Normal [facility] Comment on above: Order Comment: Urine , Random Performed By: #### L 100.0200, L400.0100, L500.2900 ####[facility] [address] [place], [address] Urine clarityOrdered By: [facility] ASSESSMENT on 11-22-2024 Clarity (U) Clear Clear [facility] Urine color determinationOrd ered By: HEALTH ASSESSMENT on 11-22-2024 Color (U) Yellow Yellow [facility] Urine glucose detectionOrder ed By: HEALTH ASSESSMENT on 11-22-2024 Glucose Ql (U) Normal mg/dl Normal [facility] Urine leukocyte esterase det ection by dipstickOrdered By: HEALTH ASSESSMENT on 11-22-2024 Leukocyte esterase Test strip Ql (U) Negative Negative [facility] Urine pHOrdered By: HEALTH A SSESSMENT on 11-22-2024 pH (U) 6.0 [pH] 5.0 - 8.0 [facility] Urine specific gravity measu rementOrdered By: HEALTH ASSESSMENT on 11-22-2024 Specific gravity (U) [Rel density] 1.020 1.002-1.[address] [facility] Urine urobilinogen measureme ntOrdered By: HEALTH ASSESSMENT on 11-22-2024 Urobilinogen Ql (U) Normal mg/dl Normal [facility] White blood cell (WBC) count Ordered By: HEALTH ASSESSMENT on 11-22-2024 WBC (Bld) [#/Vol] 5.8 10*3/uL 4.4-11.0 [facility] Cardiology Visit Reporton Cardiology Visit Report [facility] [address] [place], [place] [address] OFFICE VISIT Date of Service: 09/27/24 MR#: [id number] Acct: [id number] Name: AMALIA RICHARDSON Rep #: [id number] 13 : 1970 Provider: Dr. Bry Pelaez MD Age/Sex: 54/F Location: [facility] Status: Signed HPI HPI History of Present Illness Details: AMALIA RICHARDSON, is a 54 y/o pleasant lady with a history of tanana left anterior descending artery stenosis status post [...] Method room air Intake Visit Reasons: PER [place] to discuss med options Childcare Director Required: No Accompanied by: Self Is patient in pain?: No Allergies colchicine Allergy (Mild, Verified 09/27/24 10:34) unknown omeprazole Allergy (Verified 09/27/24 10:34) lupus rash Xqxfpvv-HAT-YvO Reductase Inhibitor (Opmzlek-Hdw-Phv Reductase Inhibitor) Allergy (Verified 09/27/24 10:34) fever, abn liver function test Sulfa (Sulfonamide Antibiotics) Allergy (Verified 09/27/24 10:34) Nausea/Vom/Diarrhea tramadol HCl (From [facility]) Adverse Reaction (Verified 09/27/24 10:34) Other Medications [...] of ech (more content not included)... Normal [facility] PAP IG HPV APTIMA 16/18,45on 07-23-2024 ADEQ Comment Normal . [facility] Comment on above: Order Comment: Speci men Comment: [id number] Specimen Comment: Source.............Cervix;Endocervix Specimen Comment: No. of containers..01 ThinPrep Vial Result Comment: Sati sfactory for evaluation. Endocervical and/or squamous metaplastic cells (endocervical component) are present. Performed By: #### L 7400.0280 #### [facility] [address] [place], [place], [id number] COMM . Normal . [facility] Comment on above: Order Comment: Speci men Comment: [id number] Specimen Comment: Source.............Cervix;Endocervix Specimen Comment: No. of containers..01 ThinPrep Vial Performed By: #### L 7400.0280 #### [facility] [address] [place], [place], [address] COMMENT Comment Normal . [facility] Comment on above: Order Comment: Speci men Comment: [id number] Specimen Comment: Source.............Cervix;Endocervix Specimen Comment: No. of containers..01 ThinPrep Vial Result Comment: This liquid based ThinPrep(R) pap test was screened with the use of an image guided system. Performed By: #### L 7400.0280 #### [facility] [address] [place], [place], [id number] DIAG Comment Normal . [facility] Comment on above: Order Comment: Speci men Comment: [id number] Specimen Comment: Source.............Cervix;Endocervix Specimen Comment: No. of containers..01 ThinPrep Vial Result Comment: NEGA TIVE FOR INTRAEPITHELIAL LESION OR MALIGNANCY. Performed By: #### L 7400.0280 #### [facility] [address] [place], [place], [address] HPV APTIMA, HR Negative Normal Negative [facility] Comment on above: Order Comment: Speci men Comment: [id number] Specimen Comment: Source.............Cervix;Endocervix Specimen Comment: No. of containers..01 ThinPrep Vial Result Comment: This nucleic acid amplification test detects fourteen high- risk HPV types (16,18,31,33,35,39,45,51,52,56,58,59,66,68) without differentiation. Performed By: #### L 7400.0280 #### [facility] [address] [place], [address] HPV Tamy Rfx Comment Normal . [facility] Comment on above: Order Comment: Speci men Comment: [id number] Specimen Comment: Source.............Cervix;Endocervix Specimen Comment: No. of containers..01 ThinPrep Vial Result Comment: Crit eria not met, HPV Genotype not performed. Performed at: - [address] [id number] Pasteurizer: Sharda Gray MD, Phone: [phone] Performed at: = - [address] [id number] Pasteurizer: Sharda Gray MD, Phone: [phone] Performed By: #### L 7400.0280 #### [facility] [address] [place], [place], [address] PAPSMR Comment Normal . [facility] Comment on above: Order Comment: Speci men Comment: [id number] Specimen Comment: Source.............Cervix;Endocervix Specimen Comment: No. of [...] occur. Performed By: #### L 7400.0280 #### [facility] [address] [place], [place], [address] PERFORM Comment Normal . [facility] Comment on above: Order Comment: Speci men Comment: [id number] Specimen Comment: Source.............Cervix;Endocervix Specimen Comment: No. of containers..01 ThinPrep Vial Result Comment: Alia Mcgill, Relationship Assoc (ASCP) Performed By: #### L 7400.0280 #### [facility] [address] [place], [place], [address] Surgery Visit Reporton 07-19 Surgery Visit Report [facility] [address] [place], [place] [address] OFFICE VISIT Date of Service: 07/19/24 MR#: [id number] Acct: [id number] Name: AMALIA RICHARDSON Rep #: [id number] 82 : 1970 Provider: Dr. 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 [...] Yes hea (more content not included)... Normal [facility] Cervical or vaginal specimen microscopic examination by liquid based cytology (reportOrdered By: Margaret Frederick on 07-17-2024 Cytology report Cyto stain.thin prep Doc (Cvx/Vag) Comment . [facility] Comment on above: Criteria not met, HP V Genotype not performed.Performed at: [facility] - [facility] [address] [id number] Director: Sharda Gray MD, Phone: [phone] at: =G - [facility] [address] [facility] [place] [place] [id number] Director: Sharda Gray MD, Phone: [phone] Cervical or vagninal specime n microscopic examination by cytology stain (reported asOrdered By: Margaret Frederick on 07-17-2024 Cytology report Cyto stain Doc (Cvx/Vag) Comment . [facility] Comment on above: The Pap smear is [...] DNA Probe+sig amp Ql (Cvx) Negative Negative [facility] Comment on above: This nucleic acid am plification test detects fourteen high-risk HPV types (16,18,31,33,35,39,45,51,52,56,58,59,66,68)without differentiation. Laboratory - CytologyOrdered By: Margaret Frederick on 07-17-2024 Chipper Feeder Cyto stain Nom (Cvx/Vag) [ID] Comment . [facility] Comment on above: Alia Mcgill, Cytotec hnologist (ASCP) Laboratory - Miscellaneous t estsOrdered By: Margaret Frederick on 07-17-2024 Service comment (Unsp spec) [Interp] . . [facility] No Panel InformationOrdered By: Margaret Frederick on 07-17-2024 Pap Smear Specimen Adequacy Comment . [facility] Comment on above: Satisfactory for gabi luation. Endocervical and/or squamous metaplasticcells (endocervical component) are present. 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: Annual Childcare Director Required: No Is patient in pain?: No Allergies colchicine Allergy (Mild, Verified 07/17/24 14:42) unknown omeprazole Allergy (Verified 07/17/24 14:42) lupus rash Sydrdff-RAF-LqW Reductase Inhibitor (Mmnqtnf-Qam-Syc Reductase Inhibitor) Allergy (Verified 07/17/24 14:42) fever, [...] : No : No Control Method: Mirena [facility] Medical History Anxiety History of lupus History of ulcerative colitis History of echocardiogram Headache Alcohol use Non-smoker History of stress test Cardiology follow-up encounter History of hematuria Chest wall asymmetry Lupus Adenomyosis Pericarditis Acute pericarditis Drug-induced lupus erythematosus Hyperlipidemia Ulcerative colitis Elevated LFTs 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 Date Name GA/Weeks Outcome Route Bth Weight Infant Gen Labor Lgth Anesthesia Del Locatn Provider TANNER Unknown 1996 Payton Urbano Unknown 2000 [address] [facility] Encounter for routine gynecological examination Details: AMALIA [...] cancer screenin01/26/2023-Norm (more content not included)... Normal [facility] T4 Free Directon 07-17-2024 T4 FREE DIRECT 1.30 ng/dL Normal 0.76-1.46 [facility] Comment on above: Performed By: #### L 506.0400, L501.9520 #### [facility] [address] [place], [place], [address] T4 freeOrdered By: Margaret cartwright on 07-17-2024 Free T4 [Mass/Vol] 1.30 ng/dL 0.76-1.46 [facility] TSH DL <= 0.005 mIU/L QnOrde red By: Margaret Frederick on 07-17-2024 Thyroid Stimulating Hormone (TSH) 3.310 uIU/mL 0.300-4.[address] [facility] TSH Qn 3.310 uIU/mL 0.300-4.[address] [facility] Thyroid Stim Hormone (TSH)on 07-17-2024 TSH 3.310 uIU/mL Normal 0.300-4.[address] [facility] Comment on above: Performed By: #### L 506.0400, L501.9520 #### [facility] [address] [place], [place], [address] Urgent Care Visit Reporton 1 05-29-2023 Urgent Care Visit Report [facility] [address], [address] [place] [address] OFFICE VISIT Date of Service: 03/28/24 MR#: [id number] Acct: [id number] Name: AMALIA RICHARDSON Rep #: [id number] 30 : 1970 Provider: MARY ANN Butts Age/Sex: 54/F Location: [facility] Status: Signed Intake Vital Signs 01/31/24 14:08 [...] Chief Complaint: ear pain, MORALES, eye pain Childcare Director Required: No Is patient in pain?: Yes Allergies colchicine Allergy (Mild, Verified 03/28/24 06:38) unknown omeprazole Allergy (Verified 03/28/24 06:38) lupus rash Xjyvyzp-MRF-InS Reductase Inhibitor (Hiekrmi-Psi-Zgp Reductase Inhibitor) Allergy (Verified 03/28/24 06:38) fever, abn liver function test Sulfa (Sulfonamide Antibiotics) Allergy (Verified 03/28/24 06:38) Nausea/Vom/Diarrhea tramadol HCl (From [facility]) Adverse Reaction (Verified 03/28/24 06:38) Other Medications [...] which has resolved. pt declines viral testing. 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 Rdgm-dhk-ztimhfr Debrox drops tried to left ear without improvement 3 days ago patient so states. No close contacts with similar complaints. No other associated symptoms and no other alleviating/aggravati ng factors. ROS Const (more content not included)... Normal [facility] C3,C4on 03-26-2024 Complement C3 [Mass/Vol] 107 mg/dL 87 - 200 mg/dL [facility] Complement C4 [Mass/Vol] 20 mg/dL 18 - 52 mg/dL [facility] Interpretation and review of laboratory results Normal [facility] C3 107 mg/dL Normal 87-200 [facility] Comment on above: Performed By: #### R ANA Clark, COMP #### [facility] (DEFAULT) [address] [address] C4 20 mg/dL Normal 18-52 [facility] Comment on above: Performed By: #### R FMENDYN, COMP #### [facility] (DEFAULT) [address] [address] CBC AND ELECTRONIC DIFFon Basophils (Bld) [#/Vol] 0.04 10*3/uL Normal 0.00-0.15 [facility] Comment on above: Performed By: #### L AB980 #### [facility] (DEFAULT) [address] [address] Basophils/100 WBC (Bld) 0.9 % Normal O [facility] Comment on above: Performed By: #### L AB980 #### [facility] (DEFAULT) [address] [place] [address] DIFF STATUS Electronic Differential Normal [facility] Comment on above: Performed By: #### L AB980 #### [facility] (DEFAULT) [address] [place] [address] Eosinophils (Bld) [#/Vol] 0.11 10*3/uL Normal 0.00-0.4 2 [facility] Comment on above: Performed By: #### L AB980 #### [facility] (DEFAULT) [address] [place] [address] Eosinophils/100 WBC (Bld) 2.4 % Normal [facility] Comment on above: Performed By: #### L AB980 #### [facility] (DEFAULT) [address] [place] [address] Hematocrit (Bld) [Volume fraction] 42.8 % Normal 34.9-44.3 [facility] Comment on above: Performed By: #### L AB980 #### [facility] (DEFAULT) [address] [place] [address] Hemoglobin (Bld) [Mass/Vol] 14.1 g/dL Normal 11.4-15. 2 [facility] Comment on above: Performed By: #### L AB980 #### [facility] (DEFAULT) [address] [place] [address] Immature Grans % 0.2 % Normal [facility] Comment on above: Performed By: #### L AB980 #### [facility] (DEFAULT) [address] [place] [address] Immature Grans Absolute < Normal <=0.08 O [facility] Comment on above: Performed By: #### L AB980 #### [facility] (DEFAULT) [address] [place] [address] Lymphocytes (Bld) [#/Vol] 1.18 10*3/uL Normal 1.16-3.5 1 [facility] Comment on above: Performed By: #### L AB980 #### [facility] (DEFAULT) [address] [place] [address] Lymphocytes/100 WBC (Bld) 25.3 % Normal [facility] Comment on above: Performed By: #### L AB980 #### [facility] (DEFAULT) [address] [place] [address] MCV (RBC) [Entitic vol] 96.8 fL Normal 79.6-97.7 [facility] Comment on above: Performed By: #### L AB980 #### [facility] (DEFAULT) [address] [address] Mean Cell Hgb 31.9 pg Normal 25.9-33.9 [facility] Comment on above: Performed By: #### L AB980 #### [facility] (DEFAULT) [address] [place] [address] Mean Cell Hgb Conc 32.9 g/dL Normal 31.4-35.[address] [facility] Comment on above: Performed By: #### L AB980 #### [facility] (DEFAULT) [address] [address] Monocytes (Bld) [#/Vol] 0.38 10*3/uL Normal 0.22-0.87 [facility] Comment on above: Performed By: #### L AB980 #### [facility] (DEFAULT) [address] [place] [address] Monocytes/100 WBC (Bld) 8.2 % Normal O [facility] Comment on above: Performed By: #### L AB980 #### [facility] (DEFAULT) [address] [address] Nucleated RBC 0.0 /100 WBC Normal <=0.2 [facility] Comment on above: Performed By: #### L AB980 #### [facility] (DEFAULT) [address] [place] [address] Platelet mean volume (Bld) [Entitic vol] 9.6 fL Normal 8.5-12.2 [facility] Comment on above: Performed By: #### L AB980 #### [facility] (DEFAULT) [address] [place] [address] Platelets (Bld) [#/Vol] 278 10*3/uL Normal 150-393 [facility] Comment on above: Performed By: #### L AB980 #### [facility] (DEFAULT) [address] [place] [address] RBC (Bld) [#/Vol] 4.42 10*6/uL Normal 3.91-5.04 [facility] Comment on above: Performed By: #### L AB980 #### [facility] (DEFAULT) [address] [place] [address] RBC Distribution 11.7 % Normal 10.8-14.9 [facility] Comment on above: Performed By: #### L AB980 #### [facility] (DEFAULT) [address] [place] [address] Segs + Bands Auto 63.0 % Normal [facility] Comment on above: Performed By: #### L AB980 #### [facility] (DEFAULT) [address] [place] [address] Segs + Bands,Absolute Auto 2.94 K/uL Normal 1.64-7.28 [facility] Comment on above: Performed By: #### L AB980 #### [facility] (DEFAULT) [address] [place] [address] WBC (Bld) [#/Vol] 4.66 10*3/uL Normal 3.99-11.19 [facility] Comment on above: Performed By: #### L AB980 #### [facility] (DEFAULT) [address] [place] [address] COMPREHENSIVE METABOLIC PANE Ian 03-26-2024 Albumin [Mass/Vol] 4.7 g/dL 3.5 - 5.0 g/dL [facility] ALP [Catalytic activity/Vol] 74 U/L 32 - 126 U/L [facility] ALT [Catalytic activity/Vol] 29 U/L 9 - 48 U/L [facility] Anion gap [Moles/Vol] 13 mmol/L 7 - 17 mmol/L [facility] AST [Catalytic activity/Vol] 26 U/L 10 - 39 U/L [facility] Bilirubin [Mass/Vol] 0.5 mg/dL NINF - 1.5 mg/dL [facility] Calcium [Mass/Vol] 9.5 mg/dL 8.6 - 10. 5 mg/dL [facility] Chloride [Moles/Vol] 105 mmol/L 98 - 10 8 mmol/L [facility] CO2 [Moles/Vol] 29 mmol/L 21 - 31 mmol/L [facility] Creatinine [Mass/Vol] 0.66 mg/dL 0.50 - 1.20 mg/dL [facility] eGFR, CKD-EPI, Female - PINF [facility] Comment on above: Reported eGFR is bas ed on the CKD-EPI 2020 equation using creatinine, age, and sex. Glucose [Mass/Vol] 92 mg/dL 70 - 99 mg/dL [facility] Osmolality Calc [Osmolality] [address] [facility] Potassium [Moles/Vol] 4.6 mmol/L 3.5 - 5.0 mmol/L [facility] Protein [Mass/Vol] 6.9 g/dL 6.4 - 8.3 g/dL [facility] Sodium [Moles/Vol] 142 mmol/L 135 - 145 mmol/L [facility] Urea nitrogen [Mass/Vol] 17 mg/dL 7 - 25 mg/dL [facility] Urea nitrogen/Creatinine [Mass ratio] 26 mg/mg [facility] Albumin [Mass/Vol] 4.7 g/dL Normal 3.5-5.[address] [facility] Comment on above: Performed By: #### R F, CMPN, COMP #### [facility] (DEFAULT) [address] [place] [address] ALP [Catalytic activity/Vol] 74 U/L Normal 32-126 [facility] Comment on above: Performed By: #### R F, CMPN, COMP #### [facility] (DEFAULT) [address] [place] [address] ALT [Catalytic activity/Vol] 29 U/L Normal 9-48 [facility] Comment on above: Performed By: #### R F, CMPN, COMP #### [facility] (DEFAULT) [address] [place] [address] Anion gap [Moles/Vol] 13 mmol/L Normal 7-17 [facility] Comment on above: Performed By: #### R F, CMPN, COMP #### [facility] (DEFAULT) [address] [place] [address] 63700 AST [Catalytic activity/Vol] 26 U/L Normal 10-39 [facility] Comment on above: Performed By: #### R F, CMPN, COMP #### [facility] (DEFAULT) [address] [place] [address] 43535 Bilirubin [Mass/Vol] 0.5 mg/dL Normal <1.5 [facility] Comment on above: Performed By: #### R F, CMPN, COMP #### [facility] (DEFAULT) [address] [place] [address] 53760 Calcium [Mass/Vol] 9.5 mg/dL Normal 8.6-10.[address] [facility] Comment on above: Performed By: #### R F, CMPN, COMP #### [facility] (DEFAULT) [address] [place] [address] 99893 Chloride [Moles/Vol] 105 mmol/L Normal 98-108 [facility] Comment on above: Performed By: #### R F, CMPN, COMP #### [facility] (DEFAULT) [address] [place] [address] 85352 CO2 [Moles/Vol] 29 mmol/L Normal 21-31 [facility] Comment on above: Performed By: #### R FMENDYN, COMP #### [facility] (DEFAULT) [address] [place] [address] 96243 Creatinine [Mass/Vol] 0.66 mg/dL Normal 0.50-1.20 [facility] Comment on above: Performed By: #### R F CMPN, COMP #### [facility] (DEFAULT) [address] [place] [address] 33383 eGFR, CKD-EPI, Female > Normal >=60 [facility] Comment on above: Result Comment: Repo rted eGFR is based on the CKD-EPI 2020 equation using creatinine, age, and sex. Performed By: #### R F CMPN, COMP #### [facility] (DEFAULT) [address] [place] [address] 07025 Glucose [Mass/Vol] 92 mg/dL Normal 70-[address] [facility] Comment on above: Performed By: #### R FMENDYN, COMP #### [facility] (DEFAULT) [address] [place] [address] 20148 Osmolality [Osmolality] 299 mosm/kg Normal 278-305 [facility] Comment on above: Performed By: #### R F CMPN, COMP #### [facility] (DEFAULT) [address] [place] [address] 69913 Potassium [Moles/Vol] 4.6 mmol/L Normal 3.5-5.0 [facility] Comment on above: Performed By: #### R F CMPN, COMP #### [facility] (DEFAULT) [address] [place] [address] 50149 Protein [Mass/Vol] 6.9 g/dL Normal 6.4-8.[address] [facility] Comment on above: Performed By: #### R F CMPN, COMP #### [facility] (DEFAULT) [address] [place] [address] 96613 Sodium [Moles/Vol] 142 mmol/L Normal 135-[address] [facility] Comment on above: Performed By: #### R MENDY ClarkN, COMP #### [facility] (DEFAULT) [address] [place] [address] 60645 Urea nitrogen [Mass/Vol] 17 mg/dL Normal 7-25 [facility] Comment on above: Performed By: #### R F CMPN, COMP #### [facility] (DEFAULT) [address] [place] [address] 11700 Urea nitrogen/Creatinine [Mass ratio] 26 mg/mg Normal [facility] Comment on above: Performed By: #### ANA Rivers, COMP #### [facility] (DEFAULT) [address] [place] [address] 64726 DSDNA ANTIBODYon 03-26-2024 dsDNA Ab, Quant 5 IU/mL High <=4 [facility] Comment on above: Performed By: #### D SDNAB #### [facility] (DEFAULT) [address] [place] [address] 79370 dsDNA Antibody Indeterminate Abnormal Negative [facility] Comment on above: Performed By: #### D SDNAB #### [facility] (DEFAULT) [address] [place] [address] 08012 IMMUNOFIXATION SERUMon 03-26 REVIEWED BY: Griselda Loving DO Normal [facility] Comment on above: Performed By: #### P SD, PSE, SIMFXB #### [facility] (DEFAULT) [address] [place] [address] 86633 Serum Immunofixation Normal [facility] Comment on above: Result Comment: Thalia te [...] #### P SD, PSE, SIMFXB #### [facility] (DEFAULT) [address] [place] [address] 14128 PROTEIN ELECTROPHORESISon Albumin [Mass/Vol] 4.5 g/dL Normal 3.5-5.[address] [facility] Comment on above: Performed By: #### P SD, PSE, SIMFXB #### [facility] (DEFAULT) [address] [place] [address] 85657 Alpha 1 0.2 g/dL Normal 0.2-0.4 [facility] Comment on above: Performed By: #### P SD, PSE, SIMFXB #### [facility] (DEFAULT) [address] [place] [address] 45030 Alpha 2 0.6 g/dL Normal 0.5-1.0 [facility] Comment on above: Performed By: #### P SD, PSE, SIMFXB #### [facility] (DEFAULT) [address] [place] [address] 09257 Beta 0.6 g/dL Normal 0.5-1.1 [facility] Comment on above: Performed By: #### P SD, PSE, SIMFXB #### [facility] (DEFAULT) [address] [place] [address] 55866 Gamma 0.8 g/dL Normal 0.6-1.5 [facility] Comment on above: Performed By: #### P SD, PSE, SIMFXB #### [facility] (DEFAULT) [address] [place] [address] 41676 Interpretation By: Griselda Loving, Normal [facility] Comment on above: Performed By: #### P SD, PSE, SIMFXB #### [facility] (DEFAULT) [address] [place] [address] 78869 Spe Interpretation There is a faint potential zone of restriction in the gamma region with normal remaining polyclonal immunoglobulins. This pattern suggests monoclonal or oligoclonal proteins that may occur in chronic inflammatory diseases (e.g., of liver), or may be idiopathic, or may represent a monoclonal gammopathy. Normal [facility] Comment on above: Performed By: #### P SD, PSE, SIMFXB #### [facility] (DEFAULT) [address] [place] [address] 41942 RHEUMATOID FACTOROrdered By: Michelle Davey on 03-26-2024 Interpretation and review of laboratory results Normal [facility] Rheumatoid factor Qn NINF [facility] RHEUMATOID FACTORon 03-26-20 24 Rheumatoid Factor <10 Normal <=14 [facility] Comment on above: Performed By: #### R F, CMPN, COMP #### [facility] (DEFAULT) [address] [place] [address] 46097 SPE SERUM TOTAL PROTEINon Protein [Mass/Vol] 6.7 g/dL Normal 6.4-8.[address] [facility] Comment on above: Performed By: #### P SD, PSE, SIMFXB #### [facility] (DEFAULT) [address] [place] [address] 92434 Stress Reporton 02-27-2024 Stress Report [facility] [address] [place] [address] MR#: [id number] Acct: [id number] Name: AMALIA RICHARDSON Rep #: [id number] : 1970 54 From: Bry Pelaez MD [...] DO Date Dictated: 02/27/241608 Date Transcribed: 02/27/241608 Maintenance Pipefitter: CO Signed Normal [facility] Breast Limited Unilateralon 02-02-2024 Breast Limited Unilateral [facility] Imaging Services [address] [place], [place] [id number] Breast Limited Unilateral MR#: [id number] Acct: [id number] Name: AMALIA RICHARDSON Rep #: [id number] : 1970 F 54 From: Garrett bateman MD PCP: Dr. Kenzie Torrez DO Status: REG CLI Study: Breast Limited Unilateral Date of Exam: Exam# [id number] Ordering Dr: Dana Crisostomo CNM [id number] STUDY: ULTRASOUND BREAST - RIGHT REASON FOR [...] CC: SHASHI Crisostomo; Dr. Kenzie Torrez DO Maintenance Pipefitter: Signed Normal [facility] SCRN MAMM (CAD)W/YUE bourgeois 02-01-2024 SCRN MAMM (CAD)W/YUE [facility] [address] [facility] [place] [address] SCRN MAMM (CAD)W/YUE BILAT MR#: [id number] Acct: [id number] Name: AMALIA RICHARDSON Rep #: [id number] : 1970 F 54 From: Garrett bateman MD PCP: Dr. Kenzie Torrez, DO Status: REG CLI Study: SCRN MAMM (CAD)W/YUE BILAT Date of Exam: 01/10 07/02 Exam# [id number] Ordering Dr: Dana Crisostomo [facility] [id number] MAMMOGRAPHY - BILATERAL SCREENING REASON FOR EXAM: [...] delay biopsy of a clinically suspicious abnormality. [id number] Electronically Signed: Garrett Reed MD at 10:21 EDT , CC: SHASHI Crisostomo; Dr. Kenzie Torrez DO Maintenance Pipefitter: Signed Normal [facility] Cardiology Visit Reporton Cardiology Visit Report [facility]. [address] [place] [address] OFFICE VISIT Date of Service: 01/31/24 MR#: [id number] Acct: [id number] Name: AMALIA RICHARDSON Rep #: [id number] : 1970 Provider: Dr. Bry Pelaez MD Age/Sex: 54/F Location: [facility] Status: Signed HPI HPI History of Present Illness Details: AMALIA RICHARDSON, is a 54 y/o pleasant lady with a history of tanana left anterior descending artery stenosis status post [...] Monitor Intake Visit Reasons: 1 y fu Childcare Director Required: No Accompanied by: Self Is patient in pain?: No Allergies colchicine Allergy (Mild, Verified 01/31/24 14:11) unknown omeprazole Allergy (Verified 01/31/24 14:11) lupus rash Mbhlqlf-Cxf-Vcu Reductase Inhibitor Allergy (Verified 01/31/24 14:11) fever, abn liver function test Sulfa (Sulfonamide Antibiotics) Allergy (Verified 01/31/24 14:11) Nausea/Vom/Diarrhea tramadol HCl (From [facility]) Adverse Reaction (Verified 01/31/24 14:11) Other Medications [...] Elevated LFTs 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 Normal [facility] CBC, Employeeon 12-13-2023 Absolute Lymph 1.39 X10 3/uL Normal 0.83-4.51 [facility] Comment on above: Performed By: #### L 400.0100, L100.0200, L500.2900 #### [facility] [address] [place], [address] Absolute Neut 3.2 X10 3/uL Normal 2.0-7.7 [facility] Comment on above: Performed By: #### L 400.0100, L100.0200, L500.2900 #### [facility] [address] [place], [address] Basophils/100 WBC (Bld) 0.6 % Normal 0-1 [facility] Comment on above: Performed By: #### L 400.0100, L100.0200, L500.2900 #### [facility] [address] [place], [address] Eosinophils/100 WBC (Bld) 2.5 % Normal 0-5 [facility] Comment on above: Performed By: #### L 400.0100, L100.0200, L500.2900 #### [facility] [address] [place], [address] Erythrocyte distribution width (RBC) [Ratio] 11.6 % Normal 11.6-14.6 [facility] Comment on above: Performed By: #### L 400.0100, L100.0200, L500.2900 #### [facility] [address] [place], [address] Hematocrit (Bld) [Volume fraction] 40.1 % Normal 37-47 [facility] Comment on above: Performed By: #### L 400.0100, L100.0200, L500.2900 #### [facility] [address] [place], [address] Hemoglobin (Bld) [Mass/Vol] 13.4 g/dL Normal 12.0-15. 0 [facility] Comment on above: Performed By: #### L 400.0100, L100.0200, L500.2900 #### [facility] [address] [place], [address] Lymphocytes/100 WBC (Bld) 26.5 % Normal 19-41 [facility] Comment on above: Performed By: #### L 400.0100, L100.0200, L500.2900 #### [facility] [address] [place], [address] MCH (RBC) [Entitic mass] 31.7 pg Normal 27.0-32.0 [facility] Comment on above: Performed By: #### L 400.0100, L100.0200, L500.2900 #### [facility] [address] [place], [address] MCHC (RBC) [Mass/Vol] 33.4 g/dL Normal 32-36 [facility] Comment on above: Performed By: #### L 400.0100, L100.0200, L500.2900 #### [facility] [address] [place], [address] MCV (RBC) [Entitic vol] 94.8 fL Normal 81-99 [facility] Comment on above: Performed By: #### L 400.0100, L100.0200, L500.2900 #### [facility] [address] [place], [address] Monocytes/100 WBC (Bld) 9.7 % Normal 0-10 [facility] Comment on above: Performed By: #### L 400.0100, L100.0200, L500.2900 #### [facility] [address] [place], [address] Neutrophils/100 WBC (Bld) 60.5 % Normal 47-70 [facility] Comment on above: Performed By: #### L 400.0100, L100.0200, L500.2900 #### [facility] [address] [place], [address] NRBC # 0.00 10 3/uL Normal 0-5 [facility] Comment on above: Performed By: #### L 400.0100, L100.0200, L500.2900 #### [facility] [address] [place], [address] Nucleated RBC (Bld) [#/Vol] 0 10*3/uL Normal 0-5 [facility] Comment on above: Performed By: #### L 400.0100, L100.0200, L500.2900 #### [facility] [address] [place], [address] Platelet mean volume (Bld) [Entitic vol] 9.3 fL Normal 6.2-12.0 [facility] Comment on above: Performed By: #### L 400.0100, L100.0200, L500.2900 #### [facility] [address] [place], [address] Platelets (Bld) [#/Vol] 282 10*3/uL Normal 150-450 [facility] Comment on above: Performed By: #### L 400.0100, L100.0200, L500.2900 #### [facility] [address] [place], [address] RBC (Bld) [#/Vol] 4.23 10*6/uL Normal 4.2-5.4 [facility] Comment on above: Performed By: #### L 400.0100, L100.0200, L500.2900 #### [facility] [address] [place], [address] RDW SD 39.9 fl Normal 35.1-43.9 [facility] Comment on above: Performed By: #### L 400.0100, L100.0200, L500.2900 #### [facility] [address] [place], [address] WBC (Bld) [#/Vol] 5.3 10*3/uL Normal 4.4-11.0 [facility] Comment on above: Performed By: #### L 400.0100, L100.0200, L500.2900 #### [facility] [address] [place], [address] Employee Profileon 4 Albumin [Mass/Vol] 3.8 g/dL Normal 3.2-5.0 [facility] Comment on above: Performed By: #### L 400.0100, L100.0200, L500.2900 #### [facility] [address] [place], [address] Albumin/Globulin [Mass ratio] 1.4 {ratio} Normal 0.9-2.4 [facility] Comment on above: Performed By: #### L 400.0100, L100.0200, L500.2900 #### [facility] [address] [place], [address] ALK P 80 U/L Normal 45-117 [facility] Comment on above: Performed By: #### L 400.0100, L100.0200, L500.2900 #### [facility] [address] [place], [address] ALT [Catalytic activity/Vol] 44 U/L Normal 13-56 [facility] Comment on above: Performed By: #### L 400.0100, L100.0200, L500.2900 #### [facility] [address] [place], [address] AST [Catalytic activity/Vol] 29 U/L Normal 15-37 [facility] Comment on above: Performed By: #### L 400.0100, L100.0200, L500.2900 #### [facility] [address] [place], [address] Bilirubin [Mass/Vol] 0.70 mg/dL Normal 0.20-1.00 [facility] Comment on above: Result Comment: For patients on eltrombopag therapy, use of Dimension [place] TBIL is not recommended. Performed By: #### L 400.0100, L100.0200, L500.2900 #### [facility] [address] [place], [address] Bilirubin.direct [Mass/Vol] 0.22 mg/dL Normal 0.00-0.[address] [facility] Comment on above: Performed By: #### L 400.0100, L100.0200, L500.2900 #### [facility] [address] [place], [address] BUN/CRE 15.7 RATIO Normal 10-20 [facility] Comment on above: Performed By: #### L 400.0100, L100.0200, L500.2900 #### [facility] [address] [place], [address] CA,Total 9.3 mg/dL Normal 8.5-10.1 [facility] Comment on above: Performed By: #### L 400.0100, L100.0200, L500.2900 #### [facility] [address] [place], [address] Chloride [Moles/Vol] 108 mmol/L High 98-107 [facility] Comment on above: Performed By: #### L 400.0100, L100.0200, L500.2900 #### [facility] [address] [place], [address] CHOL:HDL 2.[address] [facility] Comment on above: Performed By: #### L 400.0100, L100.0200, L500.2900 #### [facility] [address] [place], [address] Cholesterol [Mass/Vol] 115 mg/dL Normal 200 [facility] Comment on above: Result Comment: <200 mg/dL Desirable 200-240 mg/dL Borderline >240 mg/dL High Risk Performed By: #### L 400.0100, L100.0200, L500.2900 #### [facility] [address] [place], [address] Cholesterol in HDL [Mass/Vol] 54 mg/dL Normal [facility] Comment on above: Result Comment: The drugs N-Acetylcysteine and Metamizole may falsely depress this assay. Reference Range HDL <40 mg/dL Low HDL Cholesterol HDL >or= 60 mg/dL High HDL Cholesterol Performed By: #### L 400.0100, L100.0200, L500.2900 #### [facility] [address] [place], [address] Cholesterol in LDL [Mass/Vol] 47 mg/dL Normal 0-130 [facility] Comment on above: Performed By: #### L 400.0100, L100.0200, L500.2900 #### [facility] [address] [place], [address] Cholesterol in VLDL [Mass/Vol] 14 mg/dL Normal 5-40 [facility] Comment on above: Performed By: #### L 400.0100, L100.0200, L500.2900 #### [facility] [address] [place], [address] CO2 [Moles/Vol] 28.0 mmol/L Normal 21.0-32.0 [facility] Comment on above: Performed By: #### L 400.0100, L100.0200, L500.2900 #### [facility] [address] [place], [address] Creatinine [Mass/Vol] 0.76 mg/dL Normal 0.55-1.02 [facility] Comment on above: Result Comment: The validity of the calculated GFR GFRAA in patients over 70 years has not been determined. Clinical correlation is essential. Performed By: #### L 400.0100, L100.0200, L500.2900 #### [facility] [address] [place], [address] EST GFR - AA 102 mL/min Normal >60 [facility] Comment on above: Result Comment: Afri can Kazakh GFR Calc Performed By: #### L 400.0100, L100.0200, L500.2900 #### [facility] [address] [place], [address] GAP 6 Normal 5-15 [facility] Comment on above: Performed By: #### L 400.0100, L100.0200, L500.2900 #### [facility] [address] [place], [address] GFR/1.73 sq M.predicted among non-blacks MDRD (S/P/Bld) [Vol rate/Area] 84 mL/min/{1.73_m2} Normal >60 [facility] Comment on above: Result Comment: Non- GFR Calc Performed By: #### L 400.0100, L100.0200, L500.2900 #### [facility] [address] [place], [address] Globulin (S) [Mass/Vol] 2.7 g/dL Normal 2.2-4.2 [facility] Comment on above: Performed By: #### L 400.0100, L100.0200, L500.2900 #### [facility] [address] [place], [address] Glucose [Mass/Vol] 105 mg/dL Normal 74-106 [facility] Comment on above: Result Comment: Fast ing Glucose result from 100 to 125 mg/dL suggests IMPAIRED HOMEOSTASIS per A.D.A. criteria. Performed By: #### L 400.0100, L100.0200, L500.2900 #### [facility] [address] [place], [address] LDH 173 U/L Normal 84-246 [facility] Comment on above: Performed By: #### L 400.0100, L100.0200, L500.2900 #### [facility] [address] [place], [address] Phosphate [Mass/Vol] 3.6 mg/dL Normal 2.5-4.9 [facility] Comment on above: Performed By: #### L 400.0100, L100.0200, L500.2900 #### [facility] [address] [place], [address] Potassium [Moles/Vol] 3.7 mmol/L Normal 3.5-5.1 [facility] Comment on above: Performed By: #### L 400.0100, L100.0200, L500.2900 #### [facility] [address] [place], [address] Sodium [Moles/Vol] 142 mmol/L Normal 136-145 [facility] Comment on above: Performed By: #### L 400.0100, L100.0200, L500.2900 #### [facility] [address] [place], [address] T PROT 6.5 g/dL Normal 6.4-8.2 [facility] Comment on above: Performed By: #### L 400.0100, L100.0200, L500.2900 #### [facility] [address] [place], [address] Triglyceride [Mass/Vol] 68 mg/dL Normal [facility] Comment on above: Result Comment: The drugs N-Acetylcysteine and Metamizole may falsely depress this assay. Serum Triglycerides Reference Interval Normal <150 mg/dL Borderline high 150 - 199 mg/dL High 200 - 499 mg/dL Very High > or = 500 mg/dL Performed By: #### L 400.0100, L100.0200, L500.2900 #### [facility] [address] [place], [address] Urea nitrogen [Mass/Vol] 12 mg/dL Normal 7-18 [facility] Comment on above: Performed By: #### L 400.0100, L100.0200, L500.2900 #### [facility] [address] [place], [address] URIC 5.0 mg/dL Normal 2.6-6.0 [facility] Comment on above: Result Comment: The drugs N-Acetylcysteine and Metamizole may falsely depress this assay. Performed By: #### L 400.0100, L100.0200, L500.2900 #### [facility] [address] [place], [address] Urinalysis, Employeeon 12-12 BILIRUBIN URINE Negative Normal Negative [facility] Comment on above: Performed By: #### L 400.0100, L100.0200, L500.2900 #### [facility] [address] [place], [address] Clarity (U) Clear Normal Clear [facility] Comment on above: Performed By: #### L 400.0100, L100.0200, L500.2900 #### [facility] [address] [place], [address] Color (U) Yellow Normal Yellow [facility] Comment on above: Performed By: #### L 400.0100, L100.0200, L500.2900 #### [facility] [address] [place], [address] GLUCOSE, UR Normal Normal Normal [facility] Comment on above: Performed By: #### L 400.0100, L100.0200, L500.2900 #### [facility] [address] [place], [address] KETONE UR Negative Normal Negative [facility] Comment on above: Performed By: #### L 400.0100, L100.0200, L500.2900 #### [facility] [address] [place], [address] LEUK ESTERASE 25 /ul Abnormal Negative [facility] Comment on above: Performed By: #### L 400.0100, L100.0200, L500.2900 #### [facility] [address] [place], [address] Nitrite Ql (U) Negative Normal Negative [facility] Comment on above: Performed By: #### L 400.0100, L100.0200, L500.2900 #### [facility] [address] [place], [address] OCCULT BLOOD-UR 25 /ul Abnormal Negative [facility] Comment on above: Performed By: #### L 400.0100, L100.0200, L500.2900 #### [facility] [address] [place], [address] pH UR 6.0 Normal 5.0 - 8.0 [facility] Comment on above: Performed By: #### L 400.0100, L100.0200, L500.2900 #### [facility] [address] [place], [address] PROT DIPSTX Negative Normal Negative [facility] Comment on above: Performed By: #### L 400.0100, L100.0200, L500.2900 #### [facility] [address] [place], [address] SP.GR. DIPSTX 1.025 Normal 1.002-1.[address] [facility] Comment on above: Performed By: #### L 400.0100, L100.0200, L500.2900 #### [facility] [address] [place], [address] UROBILI Normal Normal Normal [facility] Comment on above: Performed By: #### L 400.0100, L100.0200, L500.2900 #### [facility] [address] [place], [address] Absolute lymphocyte countOrd ered By: [facility] on 04-23-2023 Lymphocytes Auto (Unsp spec) [#/Vol] 1.17 10*3/uL 0.83-4.51 [facility] Basophil percentageOrdered B y: [facility] on 04-23-2023 Basophils/100 WBC (Bld) 0.7 % 0-1 [facility] Chloride [Moles/Vol] 108 mmol/L 98-107 [facility] Eosinophils/100 WBC (Bld) 1.7 % 0-5 [facility] Glucose [Mass/Vol] 103 mg/dL 74-106 [facility] Comment on above: Fasting Glucose resu lt from 100 to 125 mg/dL suggests IMPAIRED HOMEOSTASIS per A.D.A. criteria. Neutrophils (Bld) [#/Vol] 4.0 10*3/uL 2.0-7.7 [facility] Neutrophils/100 WBC (Bld) 69.6 % 47-70 [facility] Potassium [Moles/Vol] 3.8 mmol/L 3.5-5.1 [facility] Sodium [Moles/Vol] 139 mmol/L 136-145 [facility] WBC (Bld) [#/Vol] 5.8 10*3/uL 4.4-11.0 [facility] Blood erythrocytes count (nu mber/volume)Ordered By: Bry Latanya on 04-23-2023 RBC (Bld) [#/Vol] 4.29 10*6/uL 4.2-5.4 [facility] Blood hemoglobin measurement (mass/volume)Ordered By: [facility] Latanya on 04-23-2023 Hemoglobin (Bld) [Mass/Vol] 13.8 g/dL 12.0-15. 0 [facility] Blood lymphocytes/100 leukoc ytesOrdered By: [facility] Latanya on 04-23-2023 Lymphocytes/100 WBC (Bld) 20.2 % 19-41 [facility] Blood monocytes/100 leukocyt esOrdered By: Bry Latanya on 04-23-2023 Monocytes/100 WBC (Bld) 7.8 % 0-10 [facility] Blood platelet mean volumeOr dered By: Bry Pelaez on 04-23-2023 Platelet mean volume (Bld) [Entitic vol] 8.9 fL 6.2-12.0 [facility] Determination of erythrocyte mean corpuscular volume (MCV)Ordered By: Bry Pelaez on 04-23-2023 MCV (RBC) [Entitic vol] 94.4 fL 81-99 [facility] Hematocrit Auto (Bld) [Volum e fraction]Ordered By: Bry Pelaez on 04-23-2023 Hematocrit (Bld) [Volume fraction] 40.5 % 37-47 [facility] Laboratory - Chemistry and C hemistry - challengeOrdered By: [facility] Latanya on 04-23-2023 CO2 [Moles/Vol] 26.0 mmol/L 21.0-32.0 [facility] Magnesium [Mass/Vol] 2.1 mg/dL 1.6-2.6 [facility] Natriuretic peptide B (Bld) [Mass/Vol] 3.0 pg/mL 0-100 [facility] Urea nitrogen/Creatinine [Mass ratio] 16.1 mg/mg 10-20 [facility] Laboratory - Hematology and Cell countsOrdered By: Bry Pelaez on 04-23-2023 Erythrocyte distribution width (RBC) [Entitic vol] 39.8 fL 35.1-43.9 [facility] Erythrocyte distribution width (RBC) [Ratio] 11.6 % 11.6-14.6 [facility] Immature granulocytes/100 WBC (Bld) 0.000 % 0.0-0.9 [facility] Comment on above: IG% - Immature Granu locytes (promyelocytes, myelocytes and metamyelocytes) > 1% indicates that a LEFT SHIFT is Present. MCH (RBC) [Entitic mass] 32.2 pg 27.0-32.0 [facility] Nucleated RBC/100 WBC (Bld) [Ratio] 0.3 % 0-5 [facility] MCHC Auto (RBC) [Mass/Vol]Or dered By: Bry Pelaez on 04-23-2023 MCHC (RBC) [Mass/Vol] 34.1 g/dL 32-36 [facility] No Panel InformationOrdered By: Bry Pelaez on 04-23-2023 Estimated GFR (MDRD) Amer 96 mL/min >60 [facility] Comment on above: GFR Calc Estimated GFR (MDRD) Non-Af Amer 79 mL/min >60 [facility] Comment on above: Non- GFR Calc Troponin I High Sensitivity 3 pg/mL 3.0-54.0 [facility] Comment on above: Please Note: New Nadia t Units and Gender Specific Reference Ranges. For more information see Policy Stat Procedure [place] High Sensitivity Troponin (TNIH) and attachments. Platelets bldOrdered By: Silvia Pelaez on 04-23-2023 Platelets (Bld) [#/Vol] 312 10*3/uL 150-450 [facility] Serum or plasma calcium nestor urement (mass/volume)Ordered By: Bry Pelaez on 04-23-2023 Calcium [Mass/Vol] 9.3 mg/dL 8.5-10.1 [facility] Serum or plasma creatinine m easurement (mass/volume)Ordered By: Bry Pelaez on 04-23-2023 Creatinine [Mass/Vol] 0.81 mg/dL 0.55-1.02 [facility] Comment on above: The validity of the calculated GFR & GFRAA in patients over 70 years has not been determined. Clinical correlation is essential. Serum or plasma urea nitroge n measurement (mass/volume)Ordered By: Bry Pelaez on 04-23-2023 Urea nitrogen [Mass/Vol] 13 mg/dL 7-18 [facility] Thin prep Papanicolaou smear with manual screeningOrdered By: Bry Pelaez on 04-23-2023 Thin prep Papanicolaou smear with manual screening 5 5-15 [facility] Laboratory - Chemistry and C hemistry - challengeOrdered By: Yuan Reyes on 04-19-2023 HCG ( test) Ql (U) Negative [facility] Comment on above: Very dilute urine sp ecimens, as indicated by a low specificgravity, may not contain automobile rental representative levels of hCG. If is still suspected, a first morning urinespecimen should be collected 48 hours later and tested. Absolute lymphocyte countOrd ered By: Ramesh Betancourt on 04-06-2023 Lymphocytes Auto (Unsp spec) [#/Vol] 1.20 10*3/uL 0.83-4.51 [facility] Basophil percentageOrdered B y: Ramesh Betancourt on 04-06-2023 Basophils/100 WBC (Bld) 0.8 % 0-1 [facility] Bilirubin [Mass/Vol] 0.60 mg/dL 0.20-1.00 [facility] Comment on above: For patients on eltr ombopag therapy, use of Dimension [place] TBIL is not recommended. Chloride [Moles/Vol] 109 mmol/L 98-107 [facility] Eosinophils/100 WBC (Bld) 4.1 % 0-5 [facility] Glucose [Mass/Vol] 103 mg/dL 74-106 [facility] Comment on above: Fasting Glucose resu lt from 100 to 125 mg/dL suggests IMPAIRED HOMEOSTASIS per A.D.A. criteria. Neutrophils (Bld) [#/Vol] 4.1 10*3/uL 2.0-7.7 [facility] Neutrophils/100 WBC (Bld) 66.5 % 47-70 [facility] Potassium [Moles/Vol] 4.0 mmol/L 3.5-5.1 [facility] Protein [Mass/Vol] 6.6 g/dL 6.4-8.2 [facility] Sodium [Moles/Vol] 140 mmol/L 136-145 [facility] WBC (Bld) [#/Vol] 6.1 10*3/uL 4.4-11.0 [facility] Blood erythrocytes count (nu mber/volume)Ordered By: Ramesh Betancourt on 04-06-2023 RBC (Bld) [#/Vol] 4.21 10*6/uL 4.2-5.4 [facility] Blood hemoglobin measurement (mass/volume)Ordered By: Ramesh Betancourt on 04-06-2023 Hemoglobin (Bld) [Mass/Vol] 13.5 g/dL 12.0-15. 0 [facility] Blood lymphocytes/100 leukoc ytesOrdered By: Ramesh Betancourt on 04-06-2023 Lymphocytes/100 WBC (Bld) 19.7 % 19-41 [facility] Blood monocytes/100 leukocyt esOrdered By: Ramesh Betancourt on 04-06-2023 Monocytes/100 WBC (Bld) 8.7 % 0-10 [facility] Blood platelet mean volumeOr dered By: Ramesh Betancourt on 04-06-2023 Platelet mean volume (Bld) [Entitic vol] 9.3 fL 6.2-12.0 [facility] Determination of erythrocyte mean corpuscular volume (MCV)Ordered By: Ramesh Betancourt on 04-06-2023 MCV (RBC) [Entitic vol] 96.4 fL 81-99 [facility] Hematocrit Auto (Bld) [Volum e fraction]Ordered By: Ramesh Betancourt on 04-06-2023 Hematocrit (Bld) [Volume fraction] 40.6 % 37-47 [facility] Laboratory - Chemistry and C hemistry - challengeOrdered By: Ramesh Betancourt on 04-06-2023 ALP [Catalytic activity/Vol] 66 U/L 45-117 [facility] ALT [Catalytic activity/Vol] 34 U/L 13-56 [facility] CO2 [Moles/Vol] 29.0 mmol/L 21.0-32.0 [facility] Globulin (S) [Mass/Vol] 2.8 g/dL 2.2-4.2 [facility] Urea nitrogen/Creatinine [Mass ratio] 19.9 mg/mg 10-20 [facility] Laboratory - Hematology and Cell countsOrdered By: Ramesh Betancourt on 04-06-2023 Erythrocyte distribution width (RBC) [Entitic vol] 41.7 fL 35.1-43.9 [facility] Erythrocyte distribution width (RBC) [Ratio] 11.8 % 11.6-14.6 [facility] Immature granulocytes/100 WBC (Bld) 0.200 % 0.0-0.9 [facility] Comment on above: IG% - Immature Granu locytes (promyelocytes, myelocytes and metamyelocytes) > 1% indicates that a LEFT SHIFT is Present. MCH (RBC) [Entitic mass] 32.1 pg 27.0-32.0 [facility] Nucleated RBC/100 WBC (Bld) [Ratio] 0 % 0-5 [facility] MCHC Auto (RBC) [Mass/Vol]Or dered By: Ramesh Betancourt on 04-06-2023 MCHC (RBC) [Mass/Vol] 33.3 g/dL 32-36 [facility] No Panel InformationOrdered By: Ramseh Betancourt on 04-06-2023 Estimated GFR (MDRD) Amer 96 mL/min >60 [facility] Comment on above: GFR Calc Estimated GFR (MDRD) Non-Af Amer 79 mL/min >60 [facility] Comment on above: Non- GFR Calc Platelets bldOrdered By: Sebastian Betancourt on 04-06-2023 Platelets (Bld) [#/Vol] 255 10*3/uL 150-450 [facility] Serum or plasma albumin nestor urement (mass/volume)Ordered By: Ramesh Betancourt on 04-06-2023 Albumin [Mass/Vol] 3.8 g/dL 3.2-5.0 [facility] Serum or plasma albumin/glob ulin mass ratioOrdered By: Ramesh Betancourt on 04-06-2023 Albumin/Globulin [Mass ratio] 1.4 {ratio} 0.9-2.4 [facility] Serum or plasma calcium nestor urement (mass/volume)Ordered By: Ramesh Betancourt on 04-06-2023 Calcium [Mass/Vol] 9.8 mg/dL 8.5-10.1 [facility] Serum or plasma creatinine m easurement (mass/volume)Ordered By: Ramesh Betancourt on 04-06-2023 Creatinine [Mass/Vol] 0.81 mg/dL 0.55-1.02 [facility] Comment on above: The validity of the calculated GFR & GFRAA in patients over 70 years has not been determined. Clinical correlation is essential. Serum or plasma urea nitroge n measurement (mass/volume)Ordered By: Ramesh Betancourt on 04-06-2023 Urea nitrogen [Mass/Vol] 16 mg/dL 7-18 [facility] Thin prep Papanicolaou smear with manual screeningOrdered By: Ramesh Betancourt on 04-06-2023 Thin prep Papanicolaou smear with manual screening 28 U/L 15-37 [facility] Thin prep Papanicolaou smear with manual screening 2 5-15 [facility] Laboratory - Chemistry and C hemistry - challengeOrdered By: Yuan Reyes on 01-26-2023 HCG ( test) Ql (U) Negative [facility] Comment on above: Very dilute urine sp ecimens, as indicated by a low specificgravity, may not contain automobile rental representative levels of hCG. If is still suspected, a first morning urinespecimen should be collected 48 hours later and tested. Absolute lymphocyte countOrd ered By: HEALTH ASSESSMENT on 12-06-2022 Lymphocytes Auto (Unsp spec) [#/Vol] 1.21 10*3/uL 0.83-4.51 [facility] Absolute reticulocyte countO rdered By: HEALTH ASSESSMENT on 12-06-2022 Reticulocytes (Bld) [#/Vol] 0.00 10*3/uL 0-5 [facility] Albumin Elph [Mass/Vol]Order ed By: Lb Sands on 12-06-2022 Albumin [Mass/Vol] 4.1 g/dL 2.9-4.4 [facility] Atypical perinuclear antineu trophil cytoplasmic antibodies measurementOrdered By: Lb Sands on 12-06-2022 Neutrophil cytoplasmic Ab.perinuclear.atypical IF (S) [Titer] <1:20 titer Neg:<1:20 [facility] Comment on above: The atypical pANCA p attern has been observed in asignificant percentage of patients with ulcerative colitis,primary sclerosing cholangitis and autoimmune hepatitis.Performed at: - [facility] [id number] Director: Keron Rogers PhD, Phone: [phone] at: - [facility] [id number] Director: Gin Bass MD, Phone: [phone] Basophil percentageOrdered B y: Lb Sands on 12-06-2022 Basophil percentage > 8.0 AI 0.0-0.9 [facility] Basophil percentage < 0.2 AI 0.0-0.9 [facility] Basophil percentageOrdered B y: HEALTH ASSESSMENT on 12-06-2022 Basophil percentage 3.6 mg/dL 2.5-4.9 [facility] Bilirubin [Mass/Vol] 0.60 mg/dL 0.20-1.00 [facility] Comment on above: For patients on eltr ombopag therapy, use of Dimension [place] TBIL is not recommended. Chloride [Moles/Vol] 108 mmol/L 98-107 [facility] Cholesterol [Mass/Vol] 118 mg/dL <200 [facility] Comment on above: <200 mg/dL Desirable 200-240 mg/dL Borderline >240 mg/dL High Risk Glucose [Mass/Vol] 99 mg/dL 74-106 [facility] LDH [Catalytic activity/Vol] 155 U/L 84-246 [facility] Neutrophils (Bld) [#/Vol] 3.2 10*3/uL 2.0-7.7 [facility] Potassium [Moles/Vol] 3.7 mmol/L 3.5-5.1 [facility] Protein [Mass/Vol] 6.9 g/dL 6.4-8.2 [facility] Sodium [Moles/Vol] 139 mmol/L 136-145 [facility] Triglyceride [Mass/Vol] 69 mg/dL <199 [facility] Comment on above: The drugs N-Acetylcy steine and Metamizole may falsely depress this assay.Serum Triglycerides Reference Interval Normal <150 mg/dL Borderline high 150 - 199 mg/dL High 200 - 499 mg/dL Very High > or = 500 mg/dL WBC (Bld) [#/Vol] 5.0 10*3/uL 4.4-11.0 [facility] Bilirubin Test strip Ql (U)O rdered By: HEALTH ASSESSMENT on 12-06-2022 Bilirubin Ql (U) Negative Negative [facility] Blood erythrocytes count (nu mber/volume)Ordered By: HEALTH ASSESSMENT on 12-06-2022 RBC (Bld) [#/Vol] 4.34 10*6/uL 4.2-5.4 [facility] Blood hemoglobin measurement (mass/volume)Ordered By: HEALTH ASSESSMENT on 12-06-2022 Hemoglobin (Bld) [Mass/Vol] 14.3 g/dL 12.0-15. 0 [facility] Blood platelet mean volumeOr dered By: HEALTH ASSESSMENT on 12-06-2022 Platelet mean volume (Bld) [Entitic vol] 9.3 fL 6.2-12.0 [facility] Determination of erythrocyte mean corpuscular volume (MCV)Ordered By: HEALTH ASSESSMENT on 12-06-2022 MCV (RBC) [Entitic vol] 96.8 fL 81-99 [facility] Direct bilirubinOrdered By: HEALTH ASSESSMENT on 12-06-2022 Bilirubin.direct [Mass/Vol] 0.17 mg/dL 0.00-0.[address] [facility] Erythrocyte sedimentation ra teOrdered By: Lb Sands on 12-06-2022 ESR (Bld) [Velocity] mm/h 0-30 [facility] Hematocrit Auto (Bld) [Volum e fraction]Ordered By: HEALTH ASSESSMENT on 12-06-2022 Hematocrit (Bld) [Volume fraction] 42.0 % 37-47 [facility] Interpretation of serum or p lasma protein pattern by immunofixation (narrative resultOrdered By: Lb Sands on 12-06-2022 Protein Fractions Immunofixation Rigoberto [Interp] See comment [facility] Comment on above: Result: Not Observed Ketones Test strip Ql (U)Ord ered By: HEALTH ASSESSMENT on 12-06-2022 Ketones Ql (U) Negative Negative [facility] Laboratory - Chemistry and C hemistry - challengeOrdered By: HEALTH ASSESSMENT on 12-06-2022 ALP [Catalytic activity/Vol] 69 U/L 45-117 [facility] ALT [Catalytic activity/Vol] 35 U/L 13-56 [facility] Cholesterol.total/Cholester ol in HDL [Mass ratio] 2.30 {ratio} [facility] CO2 [Moles/Vol] 29.0 mmol/L 21.0-32.0 [facility] Globulin (S) [Mass/Vol] 2.8 g/dL 2.2-4.2 [facility] Urea nitrogen/Creatinine [Mass ratio] 16.7 mg/mg 10-20 [facility] Laboratory - Hematology and Cell countsOrdered By: HEALTH ASSESSMENT on 12-06-2022 Erythrocyte distribution width (RBC) [Entitic vol] 40.7 fL 35.1-43.9 [facility] Erythrocyte distribution width (RBC) [Ratio] 11.4 % 11.6-14.6 [facility] MCH (RBC) [Entitic mass] 32.9 pg 27.0-32.0 [facility] Nucleated RBC/100 WBC (Bld) [Ratio] 0 % 0-5 [facility] MCHC Auto (RBC) [Mass/Vol]Or dered By: HEALTH ASSESSMENT on 12-06-2022 MCHC (RBC) [Mass/Vol] 34.0 g/dL 32-36 [facility] Nitrite Test strip Ql (U)Ord ered By: HEALTH ASSESSMENT on 12-06-2022 Nitrite Ql (U) Negative Negative [facility] No Panel InformationOrdered By: Lb Friend on 12-06-2022 Addendum Document Comment . [facility] Comment on above: Protein electrophore sis scan will follow via computer,mail, or patient assistant delivery. Centromere B Antibody <0.2 AI 0.0-0.9 [facility] Endomysial IgA Antibody Negative Negative [facility] Immunoglobulin E < 2 IU/mL 6-495 [facility] [employer] Antibody <0.2 AI 0.0-0.9 [facility] No Panel InformationOrdered By: HEALTH ASSESSMENT on 12-06-2022 Estimated GFR (MDRD) Amer 92 mL/min >60 [facility] Comment on above: GFR Calc Estimated GFR (MDRD) Non-Af Amer 76 mL/min >60 [facility] Comment on above: Non- GFR Calc Platelets bldOrdered By: [facility] ASSESS[facility] on 12-06-2022 Platelets (Bld) [#/Vol] 234 10*3/uL 150-450 [facility] Protein Test strip Ql (U)Ord ered By: HEALTH ASSESSMENT on 12-06-2022 Protein Ql (U) Negative Negative [facility] Segmented neutrophils/100 WB C Auto (Bld)Ordered By: HEALTH ASSESSMENT on 12-06-2022 Segmented neutrophils/100 WBC (Bld) 64.3 % 47-70 [facility] Serum DNA double strand anti body assay (units/volume)Ordered By: Lb Sands on 12-06-2022 DNA double strand Ab Qn (S) 4 [IU]/mL 0-9 [facility] Comment on above: Negative <5 Equivoca l 5 - 9 Positive >9 Serum Mariela-1 antibody assay (u nits/volume)Ordered By: Lb Sands on 12-06-2022 Mariela-1 extractable nuclear Ab Qn (S) <0.2 AI 0.0-0.9 [facility] Serum Scl-70 extractable nuc lear antibody assay (units/volume)Ordered By: Lb Sands on 12-06-2022 SCL-70 extractable nuclear Ab Qn (S) <0.2 AI 0.0-0.9 [facility] Serum Amador extractable nucl ear antibody detectionOrdered By: Lb Sands on 12-06-2022 Amador extractable nuclear Ab Ql (S) <0.2 AI 0.0-0.9 [facility] Serum [id number] measu rement by electrophoresisOrdered By: Lb Sands on 12-06-2022 Alpha 1 globulin Elph [Mass/Vol] 0.2 g/dL 0.0-0.4 [facility] Alpha 1 globulin Elph [Mass/Vol] 0.6 g/dL 0.4-1.0 [facility] Serum classic neutrophil cyt oplasmic antibody assay (units/volume)Ordered By: Lb Sands on 12-06-2022 Neutrophil cytoplasmic Ab.classic Qn (S) <1:20 titer Neg:<1:20 [facility] Serum globulin measurement ( mass/volume)Ordered By: Lb Sands on 12-06-2022 Globulin (S) [Mass/Vol] 2.4 g/dL 2.2-3.9 [facility] Serum or plasma C reactive p rotein measurement (mass/volume)Ordered By: Lb Sands on 12-06-2022 CRP [Mass/Vol] mg/L 0.0-3.0 [facility] Comment on above: C-Reactive Protein ( CRP) provides useful information for thediagnosis, therapy and monitoring of inflammatory processesand associated diseases. For the evaluation of Relative Riskfor Cardiovascular Disease, a High Sensitivity CRP (HSCRP)should be ordered. Serum or plasma IgA measurem ent (mass/volume)Ordered By: Lb Sands on 12-06-2022 IgA [Mass/Vol] 84 mg/dL 87-352 [facility] Serum or plasma IgG measurem ent (mass/volume)Ordered By: Lb Sands on 12-06-2022 IgG [Mass/Vol] 813 mg/dL 586-1602 [facility] Serum or plasma IgM measurem ent (mass/volume)Ordered By: Lb Sands on 12-06-2022 IgM [Mass/Vol] 162 mg/dL 26-217 [facility] Serum or plasma albumin nestor urement (mass/volume)Ordered By: HEALTH ASSESSMENT on 12-06-2022 Albumin [Mass/Vol] 4.1 g/dL 3.2-5.0 [facility] Serum or plasma albumin/glob ulin mass ratioOrdered By: HEALTH ASSESSMENT on 12-06-2022 Albumin/Globulin [Mass ratio] 1.5 {ratio} 0.9-2.4 [facility] Serum or plasma beta globuli n measurement by electrophoresis (mass/volume)Ordered By: Lb Sands on 12-06-2022 Beta globulin Elph [Mass/Vol] 0.7 g/dL 0.7-1.3 [facility] Serum or plasma calcium nestor urement (mass/volume)Ordered By: HEALTH ASSESSMENT on 12-06-2022 Calcium [Mass/Vol] 9.0 mg/dL 8.5-10.1 [facility] Serum or plasma cholesterol in HDL measurement (mass/volume)Ordered By: HEALTH ASSESSMENT on 12-06-2022 Cholesterol in HDL [Mass/Vol] 52 mg/dL >40 [facility] Comment on above: The drugs N-Acetylcy steine and Metamizole may falsely depress this assay. Reference Range HDL <40 mg/dL Low HDL Cholesterol HDL >or= 60 mg/dL High HDL Cholesterol Serum or plasma cholesterol in VLDL measurement (mass/volume)Ordered By: HEALTH ASSESSMENT on 12-06-2022 Cholesterol in VLDL [Mass/Vol] 14 mg/dL 5-40 [facility] Serum or plasma creatinine m easurement (mass/volume)Ordered By: HEALTH ASSESSMENT on 12-06-2022 Creatinine [Mass/Vol] 0.84 mg/dL 0.55-1.02 [facility] Comment on above: The validity of the calculated GFR & GFRAA in patients over 70 years has not been determined. Clinical correlation is essential. Serum or plasma gamma globul in measurement by electrophoresis (mass/volume)Ordered By: Lb Sands on 12-06-2022 Gamma globulin Elph [Mass/Vol] 0.9 g/dL 0.4-1.8 [facility] Serum or plasma immunoelectr ophoresis interpretation (nominal result)Ordered By: Lb Sands on 12-06-2022 Interpretation IEP [Interp] Comment . [facility] Comment on above: No monoclonality det ected. Serum or plasma low density lipoprotein (LDL) cholesterol measurement (mass/volume)Ordered By: HEALTH ASSESSMENT on 12-06-2022 Cholesterol in LDL [Mass/Vol] 52 mg/dL 0-130 [facility] Serum or plasma urea nitroge n measurement (mass/volume)Ordered By: HEALTH ASSESSMENT on 12-06-2022 Urea nitrogen [Mass/Vol] 14 mg/dL 7-18 [facility] Serum or plasma uric acid me asurement (mass/volume)Ordered By: HEALTH ASSESSMENT on 12-06-2022 Urate [Mass/Vol] 4.8 mg/dL 2.6-6.0 [facility] Comment on above: The drugs N-Acetylcy steine and Metamizole may falsely depress this assay. Serum perinuclear neutrophil cytoplasmic antibody titer by immunofluorescenceOrdered By: Lb Sands on 12-06-2022 Neutrophil cytoplasmic Ab.perinuclear IF (S) [Titer] <1:20 titer Neg:<1:20 [facility] Comment on above: The presence of posi tive fluorescence exhibiting P-ANCA orC-ANCA patterns alone is not specific for the diagnosis ofWegener's Granulomatosis (WG) or microscopic polyangiitis.Decisions about treatment should not be based solely onANCA IFA results. The International ANCA Group Consensusrecommends follow up testing of positive sera with both VA-3 and MPO-ANCA enzyme immunoassays. As many as 5% serumsamples are positive only by EIA. Ref. AM J Clin [id number];111:507-513. Serum tissue transglutaminas e IgA antibody assay (units/volume)Ordered By: Lb Sands on 12-06-2022 tTG IgA Qn (S) <2 U/mL 0-3 [facility] Comment on above: Negative 0 - 3 Weak Positive 4 - 10 Positive >10 Tissue Transglutaminase (tTG) has been identified as the endomysial antigen. Studies have demonstr- ated that endomysial IgA antibodies have over 99% specificity for gluten sensitive enteropathy. Thin prep Papanicolaou smear with manual screeningOrdered By: Lb Friend on 12-06-2022 Thin prep Papanicolaou smear with manual screening 1.8 0.7-1.7 [facility] Thin prep Papanicolaou smear with manual screeningOrdered By: HEALTH ASSESSMENT on 12-06-2022 Thin prep Papanicolaou smear with manual screening 25 U/L 15-37 [facility] Thin prep Papanicolaou smear with manual screening 2 5-15 [facility] Total protein bloodOrdered B y: Lb Friend on 12-06-2022 Protein [Mass/Vol] 6.5 g/dL 6.0-8.5 [facility] Urine blood detectionOrdered By: HEALTH ASSESSMENT on 12-06-2022 RBC Ql (U) 10 /ul Negative [facility] Urine clarityOrdered By: A LT ASSESSMENT on 12-06-2022 Clarity (U) Clear Clear [facility] Urine color determinationOrd ered By: HEALTH ASSESSMENT on 12-06-2022 Color (U) Yellow Yellow [facility] Urine glucose detectionOrder ed By: HEALTH ASSESSMENT on 12-06-2022 Glucose Ql (U) Normal mg/dl Normal [facility] Urine leukocyte esterase det ection by dipstickOrdered By: HEALTH ASSESSMENT on 12-06-2022 Leukocyte esterase Test strip Ql (U) Negative Negative [facility] Urine pHOrdered By: HEALTH A SSESSMENT on 12-06-2022 pH (U) 6.0 [pH] 5.0 - 8.0 [facility] Urine specific gravity measu rementOrdered By: HEALTH ASSESSMENT on 12-06-2022 Specific gravity (U) [Rel density] 1.020 1.002-1.[address] [facility] Urobilinogen Auto test strip Ql (U)Ordered By: HEALTH ASSESSMENT on 12-06-2022 Urobilinogen Ql (U) Normal mg/dl Normal [facility] BUN CREAon 07-08-2022 Creatinine [Mass/Vol] 0.79 mg/dL 0.50 - 1.20 mg/dL [facility] [facility] GFR/1.73 sq M.predicted CKD-EPI (S/P/Bld) [Vol rate/Area] 90 - PINF [facility] Comment on above: Reported eGFR is bas ed on the CKD-EPI 2020 equation using creatinine, age, and sex. Urea nitrogen [Mass/Vol] 12 mg/dL 7 - 25 mg/dL [facility] Urea nitrogen/Creatinine [Mass ratio] 15 [facility] COM[facility]MENT[facility] 07-08-2022 Complement C3 [Mass/Vol] 109 mg/dL 87 - 200 mg/dL [facility] C4 COMPLEMENTon 07-08-2022 Complement C4 [Mass/Vol] 22 mg/dL 18 - 52 mg/dL [facility] HEPATIC FUNCTION PANELon Albumin [Mass/Vol] 4.4 g/dL 3.5 - 5.0 g/dL [facility] ALP [Catalytic activity/Vol] 66 U/L 32 - 126 U/L [facility] ALT [Catalytic activity/Vol] 21 U/L 9 - 48 U/L [facility] AST [Catalytic activity/Vol] 23 U/L 10 - 39 U/L [facility] Bilirubin [Mass/Vol] 0.5 mg/[facility] 1.[facility] mg/dL [facility] Bilirubin.direct [Mass/Vol] 0.1 mg/dL NINF - 0.3 mg/dL [facility] Protein [Mass/Vol] 6.4 g/dL 6.4 - 8.3 g/dL [facility] No Panel Informationon 07-08 Interpretation and review of laboratory results Normal [facility] URINE PROTEIN/CREA RATIO, RA NDOMon 07-08-2022 Creatinine (24H U) [Mass/Vol] 67.03 mg/dL [facility] Protein Unsp time (U) [Mass/Vol] 6 mg/dL [facility] Protein/Creatinine (U) [Mass ratio] 0.090 mg/g [facility] Absolute lymphocyte counton 01-06-2022 Lymphocytes Auto (Unsp spec) [#/Vol] 1.20 10*3/uL 0.83-4.51 [facility] Work Phone: Absolute reticulocyte counto n 01-06-2022 Reticulocytes (Bld) [#/Vol] 0.00 10*3/uL 0-5 [facility] Work Phone: Basophil percentageon 2021 Basophil percentage 3.0 mg/dL 2.5-4.9 [facility] Work Phone: Bilirubin [Mass/Vol] 0.60 mg/dL 0.20-1.00 [facility] Work Phone: Comment on above: For patients on eltr ombopag therapy, use of Dimension [place] TBIL is not recommended. Chloride [Moles/Vol] 109 mmol/L 98-107 [facility] Work Phone: Cholesterol [Mass/Vol] 102 mg/dL <200 [facility] Work Phone: Comment on above: <200 mg/dL Desirable 200-240 mg/dL Borderline >240 mg/dL High Risk Glucose [Mass/Vol] 92 mg/dL 74-106 [facility] Work Phone: Neutrophils (Bld) [#/Vol] 3.6 10*3/uL 2.0-7.7 [facility] Work Phone: Potassium [Moles/Vol] 3.9 mmol/L 3.5-5.1 [facility] Work Phone: Protein [Mass/Vol] 6.6 g/dL 6.4-8.2 [facility] Work Phone: Sodium [Moles/Vol] 141 mmol/L 136-145 [facility] Work Phone: Triglyceride [Mass/Vol] 72 mg/dL <199 [facility] Work Phone: [phone] Comment on above: The drugs N-Acetylcy steine and Metamizole may falsely depress this assay.Serum Triglycerides Reference Interval Normal <150 mg/dL Borderline high 150 - 199 mg/dL High 200 - 499 mg/dL Very High > or = 500 mg/dL WBC (Bld) [#/Vol] 5.5 10*3/uL 4.4-11.0 [facility] Work Phone: Bilirubin Test strip Ql (U)o n 01-06-2022 Bilirubin Ql (U) Negative Negative [facility] Work Phone: Blood erythrocytes count (nu mber/volume)on 01-06-2022 RBC (Bld) [#/Vol] 4.11 10*6/uL 4.2-5.4 [facility] Work Phone: Blood hemoglobin measurement (mass/volume)on 01-06-2022 Hemoglobin (Bld) [Mass/Vol] 13.5 g/dL 12.0-15. 0 [facility] Work Phone: Blood platelet mean volumeon 01-06-2022 Platelet mean volume (Bld) [Entitic vol] 9.6 fL 6.2-12.0 [facility] Work Phone: Determination of erythrocyte mean corpuscular volume (MCV)on 01-06-2022 MCV (RBC) [Entitic vol] 96.1 fL 81-99 [facility] Work Phone: Direct bilirubinon Bilirubin.direct [Mass/Vol] 0.18 mg/dL 0.00-0.[address] [facility] Work Phone: Hematocrit Auto (Bld) [Volum e fraction]on 01-06-2022 Hematocrit (Bld) [Volume fraction] 39.5 % 37-47 [facility] Work Phone: Ketones Test strip Ql (U)on 01-06-2022 Ketones Ql (U) Negative Negative [facility] Work Phone: Laboratory - Chemistry and C hemistry - challengeon 01-06-2022 ALP [Catalytic activity/Vol] 60 U/L 45-117 [facility] Work Phone: ALT [Catalytic activity/Vol] 31 U/L 13-56 [facility] Work Phone: [phone] Cholesterol.total/Cholester ol in HDL [Mass ratio] 2.10 {ratio} [facility] Work Phone: [phone] CO2 [Moles/Vol] 27.0 mmol/L 21.0-32.0 [facility] Work Phone: [phone] Globulin (S) [Mass/Vol] 2.9 g/dL 2.2-4.2 [facility] Work Phone: [phone] Urea nitrogen/Creatinine [Mass ratio] 17.8 mg/mg 10-20 [facility] Work Phone: [phone] Laboratory - Hematology and Cell countson 01-06-2022 Erythrocyte distribution width (RBC) [Entitic vol] 41.3 fL 35.1-43.9 [facility] Work Phone: [phone] Erythrocyte distribution width (RBC) [Ratio] 11.9 % 11.6-14.6 [facility] Work Phone: [phone] MCH (RBC) [Entitic mass] 32.8 pg 27.0-32.0 [facility] Work Phone: Nucleated RBC/100 WBC (Bld) [Ratio] 0 % 0-5 [facility] Work Phone: MCHC Auto (RBC) [Mass/Vol]on 01-06-2022 MCHC (RBC) [Mass/Vol] 34.2 g/dL 32-36 [facility] Work Phone: Nitrite Test strip Ql (U)on 01-06-2022 Nitrite Ql (U) Negative Negative [facility] Work Phone: No Panel Informationon 01-06 Estimated GFR (MDRD) Amer 118 mL/min >60 [facility] Work Phone: [phone] Comment on above: GFR Calc Estimated GFR (MDRD) Non-Af Amer 97 mL/min >60 [facility] Work Phone: Comment on above: Non- GFR Calc Platelets bldon 01-06-2022 Platelets (Bld) [#/Vol] 253 10*3/uL 150-450 [facility] Work Phone: Protein Test strip Ql (U)on 01-06-2022 Protein Ql (U) Negative Negative [facility] Work Phone: [phone] Segmented neutrophils/100 WB C Auto (Bld)on 01-06-2022 Segmented neutrophils/100 WBC (Bld) 65.3 % 47-70 [facility] Work Phone: Serum or plasma albumin nestor urement (mass/volume)on 01-06-2022 Albumin [Mass/Vol] 3.7 g/dL 3.2-5.0 [facility] Work Phone: Serum or plasma albumin/glob ulin mass ratioon 01-06-2022 Albumin/Globulin [Mass ratio] 1.3 {ratio} 0.9-2.4 [facility] Work Phone: [phone] Serum or plasma calcium nestor urement (mass/volume)on 01-06-2022 Calcium [Mass/Vol] 8.8 mg/dL 8.5-10.1 [facility] Work Phone: Serum or plasma cholesterol in HDL measurement (mass/volume)on 01-06-2022 Cholesterol in HDL [Mass/Vol] 49 mg/dL >40 [facility] Work Phone: Comment on above: The drugs N-Acetylcy steine and Metamizole may falsely depress this assay. Reference Range HDL <40 mg/dL Low HDL Cholesterol HDL >or= 60 mg/dL High HDL Cholesterol Serum or plasma cholesterol in VLDL measurement (mass/volume)on 01-06-2022 Cholesterol in VLDL [Mass/Vol] 14 mg/dL 5-40 [facility] Work Phone: [phone] Serum or plasma creatinine m easurement (mass/volume)on 01-06-2022 Creatinine [Mass/Vol] 0.68 mg/dL 0.55-1.02 [facility] Work Phone: Comment on above: The validity of the calculated GFR & GFRAA in patients over 70 years has not been determined. Clinical correlation is essential. Serum or plasma low density lipoprotein (LDL) cholesterol measurement (mass/volume)on 01-06-2022 Cholesterol in LDL [Mass/Vol] 39 mg/dL 0-130 [facility] Work Phone: Serum or plasma urea nitroge n measurement (mass/volume)on 01-06-2022 Urea nitrogen [Mass/Vol] 12 mg/dL 7-18 [facility] Work Phone: Serum or plasma uric acid me asurement (mass/volume)on 01-06-2022 Urate [Mass/Vol] 4.7 mg/dL 2.6-6.0 [facility] Work Phone: Comment on above: The drugs N-Acetylcy steine and Metamizole may falsely depress this assay. Thin prep Papanicolaou smear with manual screeningon 01-06-2022 Thin prep Papanicolaou smear with manual screening 26 U/L 15-37 [facility] Work Phone: Thin prep Papanicolaou smear with manual screening 5 5-15 [facility] Work Phone: Thin prep Papanicolaou smear with manual screening 134 U/L 84-246 [facility] Work Phone: Urine blood detectionon 12-11 RBC Ql (U) 10 /ul Negative [facility] Work Phone: [phone] Urine clarityon 01-06-2022 Clarity (U) Clear Clear [facility] Work Phone: Urine color determinationon 01-06-2022 Color (U) Yellow Yellow [facility] Work Phone: Urine glucose detectionon Glucose Ql (U) Normal mg/dl Normal [facility] Work Phone: Urine leukocyte esterase det ection by dipstickon 01-06-2022 Leukocyte esterase Test strip Ql (U) Negative Negative [facility] Work Phone: Urine pHon 01-06-2022 pH (U) 6.0 [pH] 5.0 - 8.0 [facility] Work Phone: Urine specific gravity measu rementon 01-06-2022 Specific gravity (U) [Rel density] 1.025 1.002-1.[address] [facility] Work Phone: Urobilinogen Auto test strip Ql (U)on 01-06-2022 Urobilinogen Ql (U) Normal mg/dl Normal [facility] Work Phone: BUN CREAon 09-29-2021 Creatinine [Mass/Vol] 0.77 mg/dL 0.50 - 1.20 mg/dL [facility] GFR/1.73 sq M.predicted CKD-EPI (S/P/Bld) [Vol rate/Area] >90 >=60 mL/min/1.7 3m2 [facility] Comment on above: Reported eGFR is bas ed on the CKD-EPI 2020 equation using creatinine, age, and sex. Urea nitrogen [Mass/Vol] 12 mg/dL 7 - 25 mg/dL [facility] Urea nitrogen/Creatinine [Mass ratio] 16 mg/mg [facility] C3 COMPLEMENTon 09-29-2021 Complement C3 [Mass/Vol] 124 mg/dL 87 - 200 mg/dL [facility] C4 COMPLEMENTon 09-29-2021 Complement C4 [Mass/Vol] 25 mg/dL 18 - 52 mg/dL [facility] HEPATIC FUNCTION PANELon Albumin [Mass/Vol] 4.5 g/dL 3.5 - 5.0 g/dL [facility] ALP [Catalytic activity/Vol] 71 U/L 32 - 126 U/L [facility] ALT [Catalytic activity/Vol] 21 U/L 9 - 48 U/L [facility] AST [Catalytic activity/Vol] 24 U/L 10 - 39 U/L [facility] Bilirubin [Mass/Vol] 0.8 mg/dL <1.[address] [facility] Bilirubin.direct [Mass/Vol] 0.2 mg/dL <0.[address] [facility] Interpretation and review of laboratory results Normal [facility] Protein [Mass/Vol] 6.7 g/dL 6.4 - 8.3 g/dL [facility] No Panel Informationon 09-29 Interpretation and review of laboratory results Normal [facility] Absolute lymphocyte counton 09-15-2021 Lymphocytes Auto (Unsp spec) [#/Vol] 1.10 10*3/uL 0.83-4.51 [facility] Work Phone: Basophil percentageon 2021 Basophil percentage > 8.0 AI [facility] Work Phone: Basophil percentage < 0.2 [facility] Work Phone: Basophils/100 WBC (Bld) 0.7 % 0-1 [facility] Work Phone: Bilirubin [Mass/Vol] 0.50 mg/dL 0.20-1.00 [facility] Work Phone: Comment on above: For patients on eltr ombopag therapy, use of Dimension [place] TBIL is not recommended. Chloride [Moles/Vol] 107 mmol/L 98-107 [facility] Work Phone: Eosinophils/100 WBC (Bld) 2.8 % 0-5 [facility] Work Phone: Glucose [Mass/Vol] 102 mg/dL 74-106 [facility] Work Phone: Comment on above: Fasting Glucose resu lt from 100 to 125 mg/dL suggests IMPAIRED HOMEOSTASIS per A.D.A. criteria. Neutrophils (Bld) [#/Vol] 3.8 10*3/uL 2.0-7.7 [facility] Work Phone: Neutrophils/100 WBC (Bld) 67.5 % 47-70 [facility] Work Phone: Potassium [Moles/Vol] 3.5 mmol/L 3.5-5.1 [facility] Work Phone: Protein [Mass/Vol] 6.6 g/dL 6.4-8.2 [facility] Work Phone: Sodium [Moles/Vol] 138 mmol/L 136-145 [facility] Work Phone: WBC (Bld) [#/Vol] 5.6 10*3/uL 4.4-11.0 [facility] Work Phone: Blood erythrocytes count (nu mber/volume)on 09-15-2021 RBC (Bld) [#/Vol] 4.12 10*6/uL 4.2-5.4 [facility]: Blood hemoglobin measurement (mass/volume)on 09-15-2021 Hemoglobin (Bld) [Mass/Vol] 13.4 g/dL 12.0-15. 0 [facility] Work Phone: Blood lymphocytes/100 leukoc yteson 09-15-2021 Lymphocytes/100 WBC (Bld) 19.5 % 19-41 [facility] Work Phone: Blood monocytes/100 leukocyt eson 09-15-2021 Monocytes/100 WBC (Bld) 9.1 % 0-10 [facility] Work Phone: Blood platelet mean volumeon 09-15-2021 Platelet mean volume (Bld) [Entitic vol] 9.3 fL 6.2-12.0 [facility] Work Phone: Determination of erythrocyte mean corpuscular volume (MCV)on 09-15-2021 MCV (RBC) [Entitic vol] 95.4 fL 81-99 [facility] Work Phone: Erythrocyte sedimentation ra reid 09-15-2021 ESR (Bld) [Velocity] 3 mm[facility]h [facility]: Hematocrit Auto (Bld) [Volum e fraction]on 09-15-2021 Hematocrit (Bld) [Volume fraction] 39.3 % 37-47 [facility] Work Phone: [phone] Laboratory - Chemistry and C hemistry - challengeon 09-15-2021 ALP [Catalytic activity/Vol] 61 U/L 45-117 [facility] Work Phone: [phone] ALT [Catalytic activity/Vol] 30 U/L 13-56 [facility] Work Phone: [phone] CO2 [Moles/Vol] 26.0 mmol/L 21.0-32.0 [facility] Work Phone: [phone] Globulin (S) [Mass/Vol] 2.8 g/dL 2.2-4.2 [facility] Work Phone: [phone] Urea nitrogen/Creatinine [Mass ratio] 16.8 mg/mg 10-20 [facility] Work Phone: [phone] Laboratory - Hematology and Cell countson 09-15-2021 Erythrocyte distribution width (RBC) [Entitic vol] 40.0 fL 35.1-43.9 [facility] Work Phone: [phone] Erythrocyte distribution width (RBC) [Ratio] 11.5 % 11.6-14.6 [facility] Work Phone: [phone] Immature granulocytes/100 WBC (Bld) 0.400 % 0.0-0.9 [facility] Work Phone: [phone] Comment on above: IG% - Immature Granu locytes (promyelocytes, myelocytes and metamyelocytes) > 1% indicates that a LEFT SHIFT is Present. MCH (RBC) [Entitic mass] 32.5 pg 27.0-32.0 [facility] Work Phone: [phone] Nucleated RBC/100 WBC (Bld) [Ratio] 0 % 0-5 [facility] Work Phone: [phone] MCHC Auto (RBC) [Mass/Vol]on 09-15-2021 MCHC (RBC) [Mass/Vol] 34.1 g/dL 32-36 [facility] Work Phone: [phone] No Panel Informationon 09-15 Centromere B Antibody <0.2 AI [facility] Work Phone: Endomysial IgA Antibody Negative Negative [facility] Work Phone: Estimated GFR (MDRD) Amer 101 mL/min >60 [facility] Work Phone: Comment on above: GFR Calc Estimated GFR (MDRD) Non-Af Amer 83 mL/min >60 [facility] Work Phone: Comment on above: Non- GFR Calc [employer] Antibody <0.2 [facility] Work Phone: Platelets bldon 09-15-2021 Platelets (Bld) [#/Vol] 225 10*3/uL 150-450 [facility] Work Phone: Serum DNA double strand anti body assay (units/volume)on 09-15-2021 DNA double strand Ab Qn (S) 6 [IU]/mL [facility] Work Phone: Comment on above: Negative <5 Equivoca l 5 - 9 Positive >9 Serum IgA measurement (units /volume)on 09-15-2021 IgA Qn (S) 84 mg/dL [facility] Work Phone: Serum Mariela-1 antibody assay (u nits/volume)on 09-15-2021 Mariela-1 extractable nuclear Ab Qn (S) <0.2 [facility] Work Phone: Serum Scl-70 extractable nuc lear antibody assay (units/volume)on 09-15-2021 SCL-70 extractable nuclear Ab Qn (S) <0.2 [facility] Work Phone: Serum Amador extractable nucl ear antibody detectionon 09-15-2021 Amador extractable nuclear Ab Ql (S) <0.2 [facility] Work Phone: Serum or plasma C reactive p rotein measurement (mass/volume)on 09-15-2021 CRP [Mass/Vol] mg/L 0.0-3.0 [facility] Work Phone: Comment on above: C-Reactive Protein ( CRP) provides useful information for thediagnosis, therapy and monitoring of inflammatory processesand associated diseases. For the evaluation of Relative Riskfor Cardiovascular Disease, a High Sensitivity CRP (HSCRP)should be ordered. Serum or plasma albumin nestor urement (mass/volume)on 09-15-2021 Albumin [Mass/Vol] 3.8 g/dL 3.2-5.0 [facility] Work Phone: Serum or plasma albumin/glob ulin mass ratioon 09-15-2021 Albumin/Globulin [Mass ratio] 1.4 {ratio} 0.9-2.4 [facility] Work Phone: Serum or plasma calcium nestor urement (mass/volume)on 09-15-2021 Calcium [Mass/Vol] 8.8 mg/dL 8.5-10.1 [facility] Work Phone: Serum or plasma creatinine m easurement (mass/volume)on 09-15-2021 Creatinine [Mass/Vol] 0.77 mg/dL 0.55-1.02 [facility] Work Phone: Comment on above: The validity of the calculated GFR & GFRAA in patients over 70 years has not been determined. Clinical correlation is essential. Serum or plasma urea nitroge n measurement (mass/volume)on 09-15-2021 Urea nitrogen [Mass/Vol] 13 mg/dL 7-18 [facility] Work Phone: Serum tissue transglutaminas e IgA antibody assay (units/volume)on 09-15-2021 tTG IgA Qn (S) <2 U/mL [facility] Work Phone: Comment on above: Negative 0 - 3 Weak Positive 4 - 10 Positive >10 Tissue Transglutaminase (tTG) has been identified as the endomysial antigen. Studies have demonstr- ated that endomysial IgA antibodies have over 99% specificity for gluten sensitive enteropathy. Thin prep Papanicolaou smear with manual screeningon 09-15-2021 Thin prep Papanicolaou smear with manual screening 21 U/L 15-37 [facility] Work Phone: Thin prep Papanicolaou smear with manual screening 5 5-15 [facility] Work Phone: [phone] Thin prep Papanicolaou smear with manual screening 143 U/L 84-246 [facility] Work Phone: Basophil percentageon 2021 Bilirubin [Mass/Vol] 0.60 mg/dL 0.20-1.00 [facility] Work Phone: [phone] Comment on above: For patients on eltr ombopag therapy, use of Dimension [place] TBIL is not recommended. Cholesterol [Mass/Vol] 109 mg/dL <200 [facility] Work Phone: [phone] Comment on above: <200 mg/dL Desirable 200-240 mg/dL Borderline >240 mg/dL High Risk Protein [Mass/Vol] 6.6 g/dL 6.4-8.2 [facility] Work Phone: [phone] Triglyceride [Mass/Vol] 83 mg/dL [facility] Work Phone: [phone] Comment on above: The drugs N-Acetylcy steine and Metamizole may falsely depress this assay.Serum Triglycerides Reference Interval Normal <150 mg/dL Borderline high 150 - 199 mg/dL High 200 - 499 mg/dL Very High > or = 500 mg/dL Direct bilirubinon 2 Bilirubin.direct [Mass/Vol] 0.19 mg/dL 0.00-0.[address] [facility] Work Phone: [phone] Laboratory - Chemistry and C hemistry - challengeon 07-28-2021 ALP [Catalytic activity/Vol] 64 U/L 45-117 [facility] Work Phone: [phone] ALT [Catalytic activity/Vol] 27 U/L 13-56 [facility] Work Phone: [phone] Globulin (S) [Mass/Vol] 2.7 g/dL 2.2-4.2 [facility] Work Phone: [phone] Serum or plasma albumin nestor urement (mass/volume)on 07-28-2021 Albumin [Mass/Vol] 3.9 g/dL 3.2-5.0 [facility] Work Phone: [phone] Serum or plasma cholesterol in HDL measurement (mass/volume)on 07-28-2021 Cholesterol in HDL [Mass/Vol] 52 mg/dL [facility] Work Phone: Comment on above: The drugs N-Acetylcy steine and Metamizole may falsely depress this assay. Reference Range HDL <40 mg/dL Low HDL Cholesterol HDL >or= 60 mg/dL High HDL Cholesterol Serum or plasma cholesterol in VLDL measurement (mass/volume)on 07-28-2021 Cholesterol in VLDL [Mass/Vol] 17 mg/dL 5-40 [facility] Work Phone: Serum or plasma low density lipoprotein (LDL) cholesterol measurement (mass/volume)on 07-28-2021 Cholesterol in LDL [Mass/Vol] 40 mg/dL 0-130 [facility] Work Phone: Thin prep Papanicolaou smear with manual screeningon 07-28-2021 Thin prep Papanicolaou smear with manual screening 22 U/L 15-37 [facility] Work Phone: Erythrocyte sedimentation ra reid 07-08-2021 ESR (Bld) [Velocity] 3 mm/h 0-30 [facility] Work Phone: No Panel Informationon 07-08 Stool Calprotectin 23 ug/g [facility] Work Phone: Comment on above: Concentration Interp retation Follow-Up<16 - 50 ug/g Normal None>50 -120 ug/g Borderline Re-evaluate in 4-6 weeks >120 ug/g Abnormal Repeat as clinically indicatedPerformed at: [facility] [id number] [place], [place] [id number] Director: Gin Bass MD, Phone: [phone] Serum or plasma C reactive p rotein measurement (mass/volume)on 07-08-2021 CRP [Mass/Vol] mg/L 0.0-3.0 [facility] Work Phone: Comment on above: C-Reactive Protein ( CRP) provides useful information for thediagnosis, therapy and monitoring of inflammatory processesand associated diseases. For the evaluation of Relative Riskfor Cardiovascular Disease, a High Sensitivity CRP (HSCRP)should be ordered. Absolute lymphocyte counton 05-10-2021 Lymphocytes Auto (Unsp spec) [#/Vol] 1.46 10*3/uL 0.83-4.51 [facility] Work Phone: Basophil percentageon 2021 Basophils/100 WBC (Bld) 0.7 % 0-1 [facility] Work Phone: Chloride [Moles/Vol] 109 mmol/L 98-[facility]: Eosinophils/100 WBC (Bld) 3.0 % 0-5 [facility] Work Phone: Glucose [Mass/Vol] 105 mg/dL 74-106 [facility] Work Phone: Comment on above: Fasting Glucose resu lt from 100 to 125 mg/dL suggests IMPAIRED HOMEOSTASIS per A.D.A. criteria. Neutrophils (Bld) [#/Vol] 3.4 10*3/uL 2.0-7.7 [facility] Work Phone: Neutrophils/100 WBC (Bld) 60.0 % 47-70 [facility] Work Phone: Potassium [Moles/Vol] 3.4 mmol/L 3.5-5.1 [facility] Work Phone: Sodium [Moles/Vol] 142 mmol/L 136-145 [facility] Work Phone: WBC (Bld) [#/Vol] 5.7 10*3/uL 4.4-11.0 [facility] Work Phone: Blood erythrocytes count (nu mber/volume)on 05-10-2021 RBC (Bld) [#/Vol] 4.37 10*6/uL 4.2-5.4 [facility] Work Phone: Blood hemoglobin measurement (mass/volume)on 05-10-2021 Hemoglobin (Bld) [Mass/Vol] 14.1 g/dL 12.0-15. 0 [facility] Work Phone: Blood lymphocytes/100 leukoc yteson 05-10-2021 Lymphocytes/100 WBC (Bld) 25.6 % 19-41 [facility] Work Phone: Blood monocytes/100 leukocyt eson 05-10-2021 Monocytes/100 WBC (Bld) 10.5 % 0-10 [facility] Work Phone: Blood platelet mean volumeon 05-10-2021 Platelet mean volume (Bld) [Entitic vol] 9.2 fL 6.2-12.0 [facility] Work Phone: Determination of erythrocyte mean corpuscular volume (MCV)on 05-10-2021 MCV (RBC) [Entitic vol] 93.6 fL 81-99 [facility] Work Phone: Hematocrit Auto (Bld) [Volum e fraction]on 05-10-2021 Hematocrit (Bld) [Volume fraction] 40.9 % 37-47 [facility] Work Phone: [phone] INR in Blood by Coagulation assayon 05-10-2021 INR Coag (Bld) [Relative time] 0.9 {INR} [facility] Work Phone: Laboratory - Chemistry and C hemistry - challengeon 05-10-2021 CO2 [Moles/Vol] 26.0 mmol/L 21.0-32.0 [facility] Work Phone: Magnesium [Mass/Vol] 2.4 mg/dL 1.6-2.6 [facility] Work Phone: Urea nitrogen/Creatinine [Mass ratio] 14.9 mg/mg 10-20 [facility] Work Phone: Laboratory - Coagulationon 0 05-10-2021 aPTT Coag (Bld) [Time] 29.6 s 24.1-36.2 [facility] Work Phone: PT Coag (PPP) [Time] 11.8 s 11.7-14.9 [facility] Work Phone: Laboratory - Hematology and Cell countson 05-10-2021 Erythrocyte distribution width (RBC) [Entitic vol] 38.7 fL 35.1-43.9 [facility] Work Phone: [phone] Erythrocyte distribution width (RBC) [Ratio] 11.3 % 11.6-14.6 [facility] Work Phone: [phone] Immature granulocytes/100 WBC (Bld) 0.200 % 0.0-0.9 [facility] Work Phone: [phone] Comment on above: IG% - Immature Granu locytes (promyelocytes, myelocytes and metamyelocytes) > 1% indicates that a LEFT SHIFT is Present. MCH (RBC) [Entitic mass] 32.3 pg 27.0-32.0 [facility] Work Phone: [phone] Nucleated RBC/100 WBC (Bld) [Ratio] 0 % 0-5 [facility] Work Phone: [phone] MCHC Auto (RBC) [Mass/Vol]on 05-10-2021 MCHC (RBC) [Mass/Vol] 34.5 g/dL 32-36 [facility] Work Phone: [phone] No Panel Informationon 05-10 Troponin I High Sensitivity 5 pg/mL 3.0-54.0 [facility] Work Phone: [phone] Comment on above: Please Note: New Nadia t Units and Gender Specific Reference Ranges. For more information see Policy Stat Procedure [place] High Sensitivity Troponin (TNIH) and attachments. Estimated Creatinine Clearance Calc 62.78 ml/min [facility] Work Phone: [phone] Estimated GFR (MDRD) Amer 97 mL/min >60 [facility] Work Phone: [phone] Comment on above: GFR Calc Estimated GFR (MDRD) Non-Af Amer 80 mL/min >60 [facility] Work Phone: [phone] Comment on above: Non- GFR Calc Platelets bldon 05-10-2021 Platelets (Bld) [#/Vol] 264 10*3/uL 150-450 [facility] Work Phone: [phone] Serum or plasma calcium nestor urement (mass/volume)on 05-10-2021 Calcium [Mass/Vol] 9.9 mg/dL 8.5-10.1 [facility] Work Phone: Serum or plasma creatinine m easurement (mass/volume)on 05-10-2021 Creatinine [Mass/Vol] 0.80 mg/dL 0.55-1.02 [facility] Work Phone: Comment on above: The validity of the calculated GFR & GFRAA in patients over 70 years has not been determined. Clinical correlation is essential. Serum or plasma urea nitroge n measurement (mass/volume)on 05-10-2021 Urea nitrogen [Mass/Vol] 12 mg/dL 7-18 [facility] Work Phone: Thin prep Papanicolaou smear with manual screeningon 05-10-2021 Thin prep Papanicolaou smear with manual screening 7 5-15 [facility] Work Phone: PROGRESSon 05-15-2019 PROGRESS HNO ID: [id number] Author: Pedro Luis Angeles (Od) Ryan MATIAS Service: ? Author Type: SWITCHING CLERK Type: Progress Notes Filed: 05/15/2019 9:23 AM Note Text: Assessment and Plan H04.123 Chronically dry eyes, bilateral (primary encounter diagnosis) Comment: Recommend dry eye treatment. Start use of Systane Complete and Refresh [place]-3 drops (either) 1 gt both eyes four [...] components. Pedro Luis Davis II, OD Normal [facility] CNCOon 04-20-2019 CNCO Letter Text Normal [facility] PROGRESSon 01-16-2019 PROGRESS HNO ID: [id number] Author: Pedro Luis Angeles (Od) Ryan MATIAS Service: ? Author Type: SWITCHING CLERK Type: Progress Notes Filed: 01/16/2019 11:41 AM [...] components. Pedro Luis [facility], OD [facility] Telephone (ASWSTR) AMALIA RICHARDSON ([id number]) 1970 F Date Time Provider Department 05/22/18 XIOMARA GONZALEZ ASTR During your visit today, we recorded the following information about you: Monalisa Arboleda, RN, RN 05/22/2018 11:52 AM Signed Patient is due for a follow up colonoscopy for history of chronic ulcerative colitis. Last scope was with Dr. Khan in June 2015 under MAC anesthesia. Report is scanned into [employer]. Patient appears healthy and could be open [...] this something you can look up [facility] so can be updated appropriately. Thank you Monalisa Arboleda RN Allergies As of Date: 05/22/2018 Noted Allergy Reaction NAPROXEN 03/11/2005 8 - GI Upset SULFA (SULFONAMIDE ANTIBIOTICS) 03/11/2005 11 - Vomiting Comments: also has tachycardia TRAMADOL 09/11/2013 14 - Other: See Comments Comments: Drops bp, dizziness Date Reviewed: 08/26/2015 Reviewed by: Hattie Rae (Real Estate Appraiser) ISRAEL Elias - Fully Assessed Reason for [...] Encounter Status:Closed by CHANDA BUITRAGO on 05/23/18 [facility] Lab Report: Miscellaneous La b Procedureon 04-27-2017 GE use only - for [employer] import when terms are not otherwise specified . Invalid Interpretation Code [facility] Office Visit: UC: Cold Sympt omson 04-29-2016 Documentation of current medications (procedure) Done Invalid Interpretation Code [facility] Tobacco smoking status [facility] Never Inva lid Interpretation Code [facility] Tobacco smoking status [facility] Tobacco smok ing status [facility] Invalid Interpretation Code [facility] Vital Signs Date Time Vital Sign Value Performing Clinician Facility 11-26-2024 09:23-0400 Body height 154.[address] Kenzie Torrez DO Work Phone: [facility] 09-27-2024 10:30-0400 Body height 154.[address] Kenzie Torrez DO Work Phone: [facility] 09-27-2024 10:30-0400 Body mass index (BMI) [Ratio] 24.3 kg/m2 Dr. Kenzie Torrez DO Work Phone: [facility] 09-27-2024 10:30-0400 Body weight 58.[address] Kenzie Torrez DO Work Phone: [facility] 09-27-2024 10:30-0400 Diastolic blood pressure 70 mm[Hg] Dr. Kenzie Torrez DO Work Phone: [facility] 09-27-2024 10:30-0400 Heart rate 62 /min Dr. Kenzie Torrez DO Work Phone: [facility] 09-27-2024 10:30-0400 Respiratory rate 16 /min Dr. Kenzie Torrez DO Work Phone: [facility] 09-27-2024 10:30-0400 Systolic blood pressure 103 mm[Hg] Dr. Kenzie Torrez DO Work Phone: [facility] 07-19-2024 12:59-0400 Body height 154.[address] Kenzie Torrez DO Work Phone: [facility] 07-19-2024 12:59-0400 Body mass index (BMI) [Ratio] 24.1 kg/m2 Dr. Kenzie Torrez DO Work Phone: [facility] 07-19-2024 12:59-0400 Body weight 58.[address] Kenzie Torrez DO Work Phone: [facility] 07-19-2024 12:59-0400 Diastolic blood pressure 71 mm[Hg] Dr. Kenzie Torrez DO Work Phone: [facility] 07-19-2024 12:59-0400 Heart rate 75 /min Dr. Kenzie Torrez DO Work Phone: [facility] 07-19-2024 12:59-0400 Respiratory rate 17 /min Dr. Kenzie Torrez DO Work Phone: [facility] 07-19-2024 12:59-0400 SaO2% (BldA) [Mass fraction] 97 % Dr. Kenzie Torrez DO Work Phone: [facility] 07-19-2024 12:59-0400 Systolic blood pressure 102 mm[Hg] Dr. Kenzie Torrez DO Work Phone: [facility] 07-17-2024 14:39-0400 Body mass index (BMI) [Ratio] 24 kg/m2 Dr. Kenzie Torrez DO Work Phone: [facility] 07-17-2024 14:39-0400 Body weight 57.[address] Kenzie Torrez DO Work Phone: [facility] 07-17-2024 14:39-0400 Diastolic blood pressure 79 mm[Hg] Dr. Kenzie Torrez DO Work Phone: [facility] 07-17-2024 14:39-0400 Systolic blood pressure 122 mm[Hg] Dr. Kenzie Torrez DO Work Phone: [facility] 03-28-2024 06:37-0500 Body mass index (BMI) [Ratio] 23.5 kg/m2 Dr. Kenzie Torrez DO Work Phone: [facility] 03-28-2024 06:37-0500 Body temperature 98.2 [degF] Dr. Kenzie Torrez DO Work Phone: [facility] 03-28-2024 06:37-0500 Body weight 56.[address] Kenzie Torrez DO Work Phone: [facility] 03-28-2024 06:37-0500 Diastolic blood pressure 58 mm[Hg] Dr. Kenzie Torrez DO Work Phone: [facility] 03-28-2024 06:37-0500 Heart rate 63 /min Dr. Kenzie Torrez DO Work Phone: [facility] 03-28-2024 06:37-0500 Respiratory rate 15 /min Dr. Kenzie Torrez DO Work Phone: [facility] 03-28-2024 06:37-0500 SaO2% (BldA) [Mass fraction] 97 % Dr. Kenzie Torrez DO Work Phone: [facility] 03-28-2024 06:37-0500 Systolic blood pressure 118 mm[Hg] Dr. Kenzie Torrez DO Work Phone: [facility] 03-26-2024 10:03-0500 Body mass index (BMI) [Ratio] 24 kg/m2 Michelle Corbin MD Work Phone: [facility] 03-26-2024 10:03-0500 Body weight 57.61 kg Michelle Corbin MD Work Phone: [facility] 03-26-2024 10:03-0500 Diastolic blood pressure 64 mm[Hg] Michelle Corbin MD Work Phone: [facility] 03-26-2024 10:03-0500 Heart rate 58 /min Michelle Corbin MD Work Phone: [facility] 03-26-2024 10:03-0500 Respiratory rate 12 /min Michelle Corbin MD Work Phone: [facility] 03-26-2024 10:03-0500 SaO2% (BldA) [Mass fraction] 98 % Michelle Corbin MD Work Phone: [facility] 03-26-2024 10:03-0500 Systolic blood pressure 120 mm[Hg] Michelle Corbin MD Work Phone: [facility] 06-15-2023 15:32-0500 Body height 154.[address] Kenzie Torrez Work Phone: [facility] 06-15-2023 15:32-0500 Body mass index (BMI) [Ratio] 23.8 kg/m2 Dr. Kenzie Torrez Work Phone: [facility] 06-15-2023 15:32-0500 Body weight 57.[address] Kenzie Torrez Work Phone: [facility] 06-15-2023 15:32-0500 Diastolic blood pressure 82 mm[Hg] Dr. Kenzie Torrez Work Phone: [facility] 06-15-2023 15:32-0500 Systolic blood pressure 133 mm[Hg] Dr. Kenzie Torrez Work Phone: [facility] 04-19-2023 16:28-0500 Body temperature 98.5 [degF] Dr. Kenzie Torrez Work Phone: [facility] 04-19-2023 16:28-0500 Diastolic blood pressure 66 mm[Hg] Dr. Kenzie Torrez Work Phone: [facility] 04-19-2023 16:28-0500 Heart rate 66 /min Dr. Kenzie Torrez Work Phone: [facility] 04-19-2023 16:28-0500 Respiratory rate 16 /min Dr. Kenzie Torrez Work Phone: [facility] 04-19-2023 16:28-0500 SaO2% (BldA) [Mass fraction] 98 % Dr. Kenzie Torrez Work Phone: [facility] 04-19-2023 16:28-0500 Systolic blood pressure 124 mm[Hg] Dr. Kenzie Torrez Work Phone: [facility] 04-19-2023 11:45-0500 Body height 154.[address] Kenzie Torrez Work Phone: [facility] 04-19-2023 11:45-0500 Body mass index (BMI) [Ratio] 23.6 kg/m2 Dr. Kenzie Torrez Work Phone: [facility] 04-19-2023 11:45-0500 Body weight 56.[address] Kenzie Torrez Work Phone: [facility] 01-26-2023 08:05-0400 Diastolic blood pressure 50 mm[Hg] Dr. Kenzie Torrez Work Phone: [facility] 01-26-2023 08:05-0400 Heart rate 66 /min Dr. Kenzie Torrez Work Phone: [facility] 01-26-2023 08:05-0400 Respiratory rate 14 /min Dr. Kenzie Torrez Work Phone: [facility] 01-26-2023 08:05-0400 SaO2% (BldA) [Mass fraction] 100 % Dr. Kenzie Torrez Work Phone: [facility] 01-26-2023 08:05-0400 Systolic blood pressure 85 mm[Hg] Dr. Kenzie Torrez Work Phone: [facility] 01-26-2023 08:00-0400 Body temperature 97.4 [degF] Dr. Kenzie Torrez Work Phone: [facility] 01-26-2023 06:35-0400 Body height 154.[address] Kenzie Torrez Work Phone: [facility] 01-26-2023 06:35-0400 Body mass index (BMI) [Ratio] 23.3 kg/m2 Dr. Kenzie Torrez Work Phone: [facility] 01-26-2023 06:35-0400 Body weight [address] Kenzie Torrez Work Phone: [facility] 01-10-2023 10:48-0400 Body mass index (BMI) [Ratio] 23.88 kg/m2 Zaynab Eller MD Work Phone: [facility] 01-10-2023 10:48-0400 Body weight 57.34 kg Zaynab Eller MD Work Phone: [facility] 01-10-2023 10:48-0400 Diastolic blood pressure 68 mm[Hg] Zaynab Eller MD Work Phone: [facility] 01-10-2023 10:48-0400 Heart rate 91 /min Zaynab Eller MD Work Phone: [facility] 01-10-2023 10:48-0400 SaO2% (BldA) [Mass fraction] 99 % Zaynab Eller MD Work Phone: [facility] 01-10-2023 10:48-0400 Systolic blood pressure 112 mm[Hg] Zaynab Eller MD Work Phone: [facility] 07-08-2022 15:20-0400 Body height 154.9 cm Lela Leiva MD Work Phone: [facility] 07-08-2022 15:20-0400 Body mass index (BMI) [Ratio] 26.04 kg/m2 Lela Leiva MD Work Phone: [facility] 07-08-2022 15:20-0400 Body weight 62.51 kg Lela Leiva MD Work Phone: [facility] 07-08-2022 15:20-0400 Diastolic blood pressure 70 mm[Hg] Lela Leiva MD Work Phone: [facility] 07-08-2022 15:20-0400 Heart rate 81 /min Lela Leiva MD Work Phone: [facility] 07-08-2022 15:20-0400 Respiratory rate 16 /min Lela Leiva MD Work Phone: [facility] 07-08-2022 15:20-0400 SaO2% (BldA) [Mass fraction] 96 % Lela Leiva MD Work Phone: [facility] 07-08-2022 15:20-0400 Systolic blood pressure 110 mm[Hg] Lela Leiva MD Work Phone: [facility] 04-30-2022 14:58-0500 Body height 154.[address] Kenzie Torrez Work Phone: [facility] 04-30-2022 14:58-0500 Body mass index (BMI) [Ratio] 25.7 kg/m2 Dr. Kenzie Torrez Work Phone: [facility] 04-30-2022 14:58-0500 Body weight 61.[address] Kenzie Torrez Work Phone: [facility] 04-30-2022 14:58-0500 Diastolic blood pressure 77 mm[Hg] Dr. Kenzie Torrez Work Phone: [facility] 04-30-2022 14:58-0500 Heart rate 80 /min Dr. Kenzie Torrez Work Phone: [facility] 04-30-2022 14:58-0500 SaO2% (BldA) [Mass fraction] 98 % Dr. Kenzie Torrez Work Phone: [facility] 04-30-2022 14:58-0500 Systolic blood pressure 128 mm[Hg] Dr. Kenzie Torrez Work Phone: [facility] 04-28-2022 09:06-0500 Body mass index (BMI) [Ratio] 25.2 kg/m2 Dr. Kenzie Torrez Work Phone: [facility] 04-28-2022 09:06-0500 Body weight 60.[address] Kenzie Torrez Work Phone: [facility] 04-28-2022 09:06-0500 Diastolic blood pressure 80 mm[Hg] Dr. Kenzie Torrez Work Phone: [facility] 04-28-2022 09:06-0500 Systolic blood pressure 129 mm[Hg] Dr. Kenzie Torrez Work Phone: [facility] 04-20-2022 10:39-0500 Body mass index (BMI) [Ratio] 24.5 kg/m2 Dr. Kenzie Torrez Work Phone: [facility] 04-20-2022 10:39-0500 Body weight 58.[address] Kenzie Torrez Work Phone: [facility] 04-20-2022 10:39-0500 Diastolic blood pressure 63 mm[Hg] Dr. Kenzie Torrez Work Phone: [facility] 04-20-2022 10:39-0500 Heart rate 72 /min Dr. Kenzie Torrez Work Phone: [facility] 04-20-2022 10:39-0500 Respiratory rate 16 /min Dr. Kenzie Torrez Work Phone: [facility] 04-20-2022 10:39-0500 Systolic blood pressure 112 mm[Hg] Dr. Kenzie Torrez Work Phone: [facility] 04-13-2022 10:59-0500 Body height 154.94 cm [facility] Work Phone: 04-13-2022 10:59-0500 Body mass index (BMI) [Ratio] 24.5 kg/m2 [facility] 04-13-2022 10:59-0500 Body temperature 97.9 [degF] [facility] 04-13-2022 10:59-0500 Body weight 58.96 kg [facility] 04-13-2022 10:59-0500 Diastolic blood pressure 76 mm[Hg] [facility] 04-13-2022 10:59-0500 Heart rate 77 /min [facility] 04-13-2022 10:59-0500 Respiratory rate 14 /min [facility] 04-13-2022 10:59-0500 SaO2% (BldA) [Mass fraction] 99 % [facility] 04-13-2022 10:59-0500 Systolic blood pressure 118 mm[Hg] [facility] 09-29-2021 08:42-0400 Body height 154.9 cm Lela Leiva MD Work Phone: [facility] 09-29-2021 08:42-0400 Body mass index (BMI) [Ratio] 25.36 kg/m2 eLla Leiva MD Work Phone: [facility] 09-29-2021 08:42-0400 Body weight 60.87 kg Lela Leiva MD Work Phone: [facility] 09-29-2021 08:42-0400 Diastolic blood pressure 72 mm[Hg] Lela Leiva MD Work Phone: [facility] 09-29-2021 08:42-0400 Heart rate 61 /min Lela Leiva MD Work Phone: [facility] 09-29-2021 08:42-0400 Respiratory rate 14 /min Lela Leiva MD Work Phone: [facility] 09-29-2021 08:42-0400 SaO2% (BldA) [Mass fraction] 97 % Lela Leiva MD Work Phone: [facility] 09-29-2021 08:42-0400 Systolic blood pressure 118 mm[Hg] Lela Leiva MD Work Phone: [facility] 07-14-2021 12:27-0400 Body height 154.[address] Kenzie Torrez Work Phone: [facility] Work Phone: 07-14-2021 12:27-0400 Body mass index (BMI) [Ratio] 25 kg/m2 Dr. Kenzie Torrez Work Phone: [facility] Work Phone: 07-14-2021 12:27-0400 Body weight 60.[address] Kenzie Torrez Work Phone: [facility] Work Phone: 07-14-2021 12:27-0400 Diastolic blood pressure 77 mm[Hg] Dr. Kenzie Torrez Work Phone: [facility] Work Phone: 07-14-2021 12:27-0400 Heart rate 74 /min Dr. Kenzie Torrez Work Phone: [facility] Work Phone: 07-14-2021 12:27-0400 Respiratory rate 16 /min Dr. Kenzie Torrez Work Phone: [facility] Work Phone: 07-14-2021 12:27-0400 SaO2% (BldA) [Mass fraction] 96 % Dr. Kenzie Torrez Work Phone: [facility] Work Phone: 07-14-2021 12:27-0400 Systolic blood pressure 108 mm[Hg] Dr. Kenzie Torrez Work Phone: [facility] Work Phone: 05-10-2021 05:12-0500 Diastolic blood pressure 80 mm[Hg] Dr. Kenzie Torrez Work Phone: [facility] Work Phone: 05-10-2021 05:12-0500 Heart rate 68 /min Dr. Kenzie Torrez Work Phone: [facility] Work Phone: 05-10-2021 05:12-0500 Respiratory rate 15 /min Dr. Kenzie Torrez Work Phone: [facility] Work Phone: 05-10-2021 05:12-0500 SaO2% (BldA) [Mass fraction] 96 % Dr. Kenzie Torrez Work Phone: [facility] Work Phone: 05-10-2021 05:12-0500 Systolic blood pressure 120 mm[Hg] Dr. Kenzie Torrez Work Phone: [facility] Work Phone: 05-10-2021 01:32-0500 Body mass index (BMI) [Ratio] 25 kg/m2 Dr. Kenzie Torrez Work Phone: [facility] Work Phone: 05-10-2021 01:32-0500 Body temperature 97.1 [degF] Dr. Kenzie Torrez Work Phone: [facility] Work Phone: 05-10-2021 01:32-0500 Body weight 60.[address] Kenzie Torrez Work Phone: [facility] Work Phone: 01-21-2022 13:25-0500 Body mass index (BMI) [Ratio] 24.5 kg/m2 Dr. Kenzie Torrez Work Phone: [facility] Work Phone: 05-01-2021 13:25-0500 Body weight 58.[address] Kenzie Torrez Work Phone: [facility] Work Phone: 04-29-2016 08:09-0500 BMI (Body Mass Index) 26.75 kg/m2 Jazzy Diaz NP [facility] 04-29-2016 08:09-0500 Body Temperature 98.1 [degF] Jazzy Diaz [facility] 04-29-2016 08:09-0500 BP Diastolic 72 mm[Hg] Jazzy Diaz [employer] [facility] 04-29-2016 08:09-0500 BP Systolic 126 mm[Hg] Jazzy Diaz [facility] 04-29-2016 08:09-0500 BSA (Body Surface Area) 1.63 m2 Jazzy Diaz [facility] 04-29-2016 08:09-0500 Height 154.[address] [facility] 04-29-2016 08:09-0500 Pulse (Heart Rate) 71 /min Jazzy Diaz [facility] 04-29-2016 08:09-0500 Respiratory Rate 16 /min Jazzy Diaz [facility] 04-29-2016 08:09-0500 Weight 64.[address] [facility] Encounters Encounter Date Encounter Type Care Provider Facility Start: 12-19-2024 ambulatory Kenzie Torrez Facility:[facility] Start: 11-27-2024 End: 11-27-[address] Kenzie Torrez DO Work Phone: -[facility] Start: 11-27-2024 End: 11-27-[address] Zechariah Fajardo MD -[facility] Work Phone: Start: 11-26-2024 End: 11-26-[address] Zechariah Fajardo MD -Radiology [facility] Work Phone: Start: 11-26-2024 End: 11-26-2024 ambulatory Zechariah Fajardo Facility:[facility] Start: 11-22-2024 Registered Referred HEALTH RIS K ASSESSMENT -Employee Health Start: 11-22-2024 ambulatory Health Risk Assessment Facility:[facility] Start: 09-27-2024 End: 09-27-[address] Bry Pelaez MD -[facility] Work Phone: Start: 09-27-2024 End: 09-27-[address] Kenzie Torrez DO Work Phone: [facility] Work Phone: Start: 09-20-2024 ambulatory Kenzie Torrez Facility:[facility] Start: 07-19-2024 End: 07-19-[address] Nancy Lim MD -[facility] Work Phone: Start: 07-19-2024 End: 07-19-2024 ambulatory Kenzie Torrez Facility:[facility] Start: 07-17-2024 End: 07-17-[address] Kenzie Torrez DO Work Phone: [facility] Work Phone: Start: 07-17-2024 End: 07-17-2024 Patient encounter procedure Margaret MURILLO -Lab, [facility] Start: 07-17-2024 End: 07-17-2024 Patient encounter procedure Margaret MURILLO -[facility] Work Phone: Start: 07-17-2024 End: 07-17-2024 Patient encounter status Margaret MURILLO [facility] Start: 07-17-2024 End: 07-17-2024 ambulatory Kenzie Torrez Facility:[facility] Start: 07-17-2024 End: 07-17-2024 ambulatory Margaret Frederick Facility:[facility] Start: 03-28-2024 End: 03-28-2024 Patient encounter procedure Lul REESE [facility] Work Phone: Start: 03-28-2024 End: 03-28-2024 ambulatory Lul REESE Facility:[facility] Start: 03-26-2024 End: 03-26-2024 Office outpatient visit 15 minutes Michelle Corbin MD Work Phone: [facility] Comment on above: SS-A antibody positi ve (Primary Dx); Subacute cutaneous lupus erythematosus Start: 03-26-2024 ambulatory NIPEN CATALINAEL Facility:[facility] Start: 02-28-2024 ambulatory Kenzie Malys Facility:[facility] Start: 02-27-2024 ambulatory Kenzie Malys Facility:[facility] Start: 02-27-2024 End: 02-27-2024 ambulatory Kenzie Malys Facility:[facility] Start: 02-02-2024 End: 02-02-2024 ambulatory Kenzie [facility] Facility:[facility] Start: 01-31-2024 End: 02-01-2024 ambulatory Kenzie Malys Facility:[facility] Start: 12-13-2023 ambulatory Kenzie Malys Facility:[facility] Start: 06-15-2023 End: 06-15-[address] Kenzie Torrez Work Phone: [facility] Work Phone: Start: 06-15-2023 End: 06-15-[address] Kenzie Torrez Work Phone: [facility]-Laboratory, Specimen Work Phone: Start: 06-15-2023 End: 06-15-[address] Kenzie Torrez Work Phone: [facility] Work Phone: Start: 04-26-2023 End: 04-26-[address] Kenzie Torrez Work Phone: [facility] Work Phone: Start: 04-26-2023 End: 04-26-[address] Kenzie Torrez Work Phone: [facility]-Cat Scan, [facility] Work Phone: Start: 04-23-2023 End: 04-23-[address] Kenzie Torrez Work Phone: [facility] Work Phone: Start: 04-23-2023 End: 04-23-[address] Kenzie Torrez Work Phone: [facility] Work Phone: Start: 04-19-2023 End: 04-19-2023 Admission to same day surgery center Dr. Kenzie Torrez Work Phone: [facility] Start: 01-28-2023 End: 01-28-[address] Kenzie Torrez Work Phone: [facility] Ultrasound Work Phone: Start: 01-26-2023 Non-patient / Non-visit Dr. Carlotta Torrez Work Phone: [facility] Start: 01-26-2023 End: 01-26-2023 Admission to same day surgery center Dr. Kenzie Torrez Work Phone: [facility]-Endoscopy Work Phone: Start: 01-26-2023 End: 01-26-[address] Kenzie Torrez Work Phone: [facility] Work Phone: Start: 01-21-2023 End: 01-21-[address] Kenzie Torrez Work Phone: [facility] Work Phone: Start: 01-21-2023 End: 01-21-[address] Kenzie Torrez Work Phone: [facility]-Outpatient Breast Imaging Work Phone: Start: 01-10-2023 End: 01-10-2023 Office outpatient visit 25 minutes Zaynab Eller MD Work Phone: [facility] Comment on above: Subacute cutaneous l upus erythematosus (Primary Dx); SS-A antibody positive; Long-term use of hydroxychloroquine Start: 12-06-2022 End: 12-06-[address] [facility] Work Phone: Start: 12-06-2022 End: 12-06-[address] [facility] Work Phone: Start: 12-06-2022 Registered Referred [facility] Health Start: 07-08-2022 End: 07-08-2022 Office outpatient visit 25 minutes Lela Leiva MD Work Phone: [facility] Comment on above: Subacute cutaneous l upus erythematosus (Primary Dx); SS-A antibody positive; Long-term use of hydroxychloroquine; Therapeutic drug monitoring Start: 04-30-2022 End: 04-30-[address] Kenzie Torrez Work Phone: [facility] Start: 04-28-2022 Non-patient / Non-visit Dr. Carlotta Torrez Work Phone: [facility] Start: 04-28-2022 End: 04-28-[address] Kenzie Torrez Work Phone: [facility] Work Phone: Start: 04-28-2022 End: 04-28-[address] Kenzie Torrez Work Phone: [facility] Start: 04-28-2022 End: 04-28-[address] Kenzie Torrez Work Phone: [facility] Start: 04-20-2022 End: 04-20-[address] Kenzie Torrez Work Phone: [facility] Start: 04-13-2022 End: 04-13-2022 Emergency department patient visit [facility] Start: 01-20-2022 End: 01-20-[address] [facility] Start: 01-06-2022 Registered Referred [facility] Start: 09-29-2021 End: 09-29-2021 Office outpatient visit 25 minutes Lela Leiva MD Work Phone: [facility] Comment on above: Subacute cutaneous l upus erythematosus (Primary Dx); SS-A antibody positive; Therapeutic drug monitoring Start: 09-15-2021 End: 09-15-[address] Kenzie Torrez Work Phone: [facility] Start: 07-28-2021 End: 07-28-[address] Kenzie Torrez Work Phone: [facility] Start: 07-14-2021 End: 07-14-[address] Kenzie Torrez Work Phone: [facility] Start: 07-08-2021 End: 07-08-[address] Kenzie Torrez Work Phone: [facility] Start: 07-06-2021 End: 07-06-[address] Kenzie Torrez Work Phone: [facility] Start: 05-10-2021 End: 05-10-2021 Emergency department patient visit Dr. Kenzie Torrez Work Phone: [facility] Start: 05-01-2021 End: 05-01-[address] Kenzie Torrez Work Phone: [facility] Start: 04-06-2021 End: 04-06-[address] Kenzie Torrez Work Phone: [facility] Procedures Date Procedure Procedure Detail Performing [...] AM EDT Office Visit [facility] [address] [place] [address] [phone] Michelle Corbin MD [address] [place] [address] [phone] [facility] [place] Start: 07-17-2024 Liquid based cervica l cytology screening [facility] Start: 03-26-2024 End: 03-26-[address] [facility] Comment on above: Expected: 03/26/2024 , Expires: 03/26/2025 Start: 03-26-2024 End: 03-26-2025 PROTEIN ELECTROPHORESIS SERUM, WITH REFLEX [facility] Comment on above: Expected: 03/26/2024 , Expires: 03/26/2025 Start: 12-11-2023 COVID-19 VACCINE () COVID-19 VACCINE () [facility] Start: 12-11-2023 Influenza vaccination INFLUENZA VACC INE (#1) [facility] Start: 06-15-2023 Liquid based cervica l cytology screening [facility] Start: 04-19-2023 Application of gauze support bandage [facility] Start: 04-19-[address] [facility] Start: 04-19-2023 Elevation of foot of bed [facility] Start: 04-19-[address] [facility] Start: 04-19-2023 Patient discharge [facility] Start: 04-19-[address] [facility] Start: 04-19-[address] [facility] Start: 04-19-2023 [facility] Start: 04-19-2023 Anes open proc bones lower leg/ankle/foot nos ANESTH LOWER LEG BONE SURG [facility] Start: 04-19-2023 Corrj hallux valgus w/sesmdc w/dist metar osteot COR HLX VLGS DSTL MTAR OSTEO [facility] Start: 04-19-2023 Corrj hallux valgus w/sesmdc w/prox phlnx osteot COR HLX VLGS PRX PHLX OSTEOT [facility] Start: 04-19-2023 Exc lesion tendon sheath/capsule w/synvct foot REMOVAL OF FOOT LESION [facility] Start: 04-19-2023 Excision tumor soft tis foot/toe subq 1.5 cm/> EXC FOOT/TOE YAJAIRA SC 1.5 CM/> [facility] Start: 04-17-2023 Fasting lipid profile LIPID SCREENIN G [facility] Start: 04-17-2023 Lipid panel LIPID SCREENING [facility] Start: 01-26-2023 Colonoscopy w/biopsy single/multiple COLONOSCOPY AND BIOPSY [facility] Start: 01-26-2023 Patient discharge [facility] Start: 12-10-2022 Influenza vaccination INFLUENZA VACC INE (#1) [facility] Start: 07-08-2022 End: 07-09-[address] [facility] Comment on above: Expected: 07/08/2022 , Expires: 07/09/2023 Start: 07-08-2022 End: 07-09-2023 PROTEIN ELECTROPHORESIS SERUM, WITH REFLEX [facility] Comment on above: Expected: 07/08/2022 , Expires: 07/09/2023 Start: 07-08-2022 End: 07-09-2023 URINALYSIS REFLEX TO CULTURE [facility] Comment on above: Expected: 07/08/2022 , Expires: 07/09/2023 Start: 12-10-2021 Influenza vaccination [facility] Start: 09-29-2021 End: 09-29-[address] [facility] Work Phone: Comment on above: Expected: 09/29/2021 , Expires: 09/29/2022 Start: 09-29-2021 End: 09-29-2022 URINALYSIS REFLEX TO CULTURE [facility] Comment on above: Expected: 09/29/2021 , Expires: 09/29/2022 Start: 01-09-2020 Zoster vaccine hzv l radames for subcutaneous use ZOSTER (SHINGLES) VACCINE (1 of 2) [facility] Start: 2015 Colonoscopy COLORECTAL CAN CER SCREENING DISCUSSION [facility] Start: 2015 Screening for malign ant neoplasm of colon COLORECTAL CANCER SCREENING DISCUSSION [facility] Start: 2010 Screening for malign ant neoplasm of breast MAMMOGRAM SCREENING DISCUSSION [facility] Start: 2010 Screening mammography MAMMOGRA M SCREENING DISCUSSION [facility] Start: 1991 Screening for malign ant neoplasm of cervix CERVICAL CANCER SCREENING DISCUSSION [facility] Start: 1989 Third diphtheria, te tanus and acellular pertussis (DTaP) vaccination TDAP (ADULT) [facility] Start: 1989 Zoster vaccine hzv l radames for subcutaneous use ZOSTER (SHINGLES) VACCINE (1 of 2) [facility] Start: 01-09-1988 Tetanus vaccination TETANUS [facility] Start: 01-09-1976 PNEUMOCOCCAL VACCINE SERIES (1 - PCV) PNEUMOCOCCAL VACCINE SERIES (1 - PCV) [facility] Start: 1975 COVID-19 VACCINE (#1) COVID-19 VACCI NE (#1) [facility] Start: 1970 COVID-19 VACCINE (#1) COVID-19 VACCI NE (#1) [facility] Start: 1970 Tetanus vaccination TETANUS [facility] C reactive protein [Mass/volume] in Serum or Plasma [facility] Cytology report of Cervical or vaginal smear or scraping Cyto stain.thin prep [facility] Erythrocyte sediment ation rate [facility] Lactoferrin [Presenc e] in Stool by Immunoassay [facility] MG Breast - bilatera l Screening [facility] MR Lower Extremity Joint [facility] Path report.final Dx Spec [facility] Path report.final Dx Spec [facility] Patient Education [facility] Work Phone: Patient referral [facility] Work Phone: Protein measurement [facility] US Breast limited [facility] Immunizations Immunization Date Immunization Notes Care Provider Fa cility 02-20-2021 Covid (Moderna) Dr. Kenzie payne Work Phone: [facility] 05-20-2020 Covid (Moderna) Dr. Kenzie payne Work Phone: [facility] 04-22-2020 Covid (Moderna) Dr. Kenzie payne Work Phone: [facility] 01-06-2018 Influenza Vaccine Preservative Free Lela Leiva MD Work Phone: [facility] 01-06-2018 influenza, injectabl e, quadrivalent, preservative free Dr. Kenzie Torrez Work Phone: [facility] 01-06-2018 influenza, seasonal, injectable Dr. Kenzie Torrez Work Phone: [facility] 01-06-2018 influenza virus vaccine, unspecified formulation Lela Leiva MD Work Phone: [facility] 01-05-2017 Influenza Vaccine Preservative Free Lela Leiva MD Work Phone: [facility] 01-05-2017 influenza, injectabl e, quadrivalent, preservative free Dr. Kenzie Torrez Work Phone: [facility] 01-05-2017 influenza, seasonal, injectable Dr. Kenzie Torrez Work Phone: [facility] 01-09-2016 influenza, injectabl e, quadrivalent, preservative free Dr. Kenzie Torrez Work Phone: [facility] 01-09-2016 influenza, seasonal, injectable Dr. Kenzie Torrez Work Phone: [facility] 03-24-2015 influenza, injectabl e, quadrivalent, preservative free Dr. Kenzie Torrez Work Phone: [facility] 03-24-2015 influenza, seasonal, injectable Dr. Kenzie Torrez Work Phone: [facility] 2014 influenza, injectabl e, quadrivalent, preservative free Dr. Kenzie Torrez Work Phone: [facility] 2014 influenza, seasonal, injectable Dr. Kenzie Torrez Work Phone: [facility] 02-08-2013 Influenza Vaccine Preservative Free Lela Leiva MD Work Phone: [facility] 02-08-[address] Kenzie Torrez Work Phone: [facility] 01-14-2009 Influenza Vaccine Nasal Sabi randee Eller MD Work Phone: [facility] 01-14-2009 influenza virus vaccine, live, attenuated, for intranasal use Lela Leiva MD Work Phone: [facility] Payers Date Payer Category Payer Self-pay [id number] 2022 Private Health Insurance [employer] Anup ARGUETA [id number] 2022-Present [address] [place] [id number] 2022 Unknown [id number] 2018 Unknown [facility] ACC[facility] [id number] 2018-Present [address] [address] [place] [address] [id number] 2013 Unknown [id number] 1970 Unknown [id number] 94 1970 Unknown [id number] [id number] 94 Unknown [facility] [id number] Unknown [id number] 2.16.840.1.719333.3.579.2.4 62 Unknown [id number] 2.16.840.1.225652.3.579.2.4 62 Unknown [id number] 2.16.840.1.835601.3.579.2.4 62 Unknown [id number] 2.16.840.1.549306.3.579.2.4 62 Unknown [id number] 2.16.840.1.419194.3.579.2.4 62 Unknown [id number] 2.16.840.1.266032.3.579.2.4 62 Unknown [id number] 2.16.840.1.961391.3.579.2.4 62 Unknown [id number] 2.16.840.1.408368.3.579.2.4 62 Unknown [id number] 2.16.840.1.423954.3.579.2.4 62 Unknown [id number] 2.16.840.1.984260.3.579.2.4 62 Unknown [id number] 2.16.840.1.733613.3.579.2.4 62 Unknown [id number] 2.16.840.1.393412.3.579.2.4 62 Unknown [id number] 2.16.840.1.477485.3.579.2.4 62 Unknown [id number] 2.16.840.1.418439.3.579.2.4 62 Unknown [id number] 2.16.840.1.623366.3.579.2.4 62 Unknown [id number] 2.16.840.1.184378.3.579.2.4 62 Unknown [id number] 2.16.840.1.469535.3.579.2.4 62 Social History Date Type Detail Facility Start: 07-14-2021 End: 06-15-2023 Tobacco smoking status [facility] Unknown if ever smoked [facility] Start: 05-07-2018 Occasional [facility] Start: 05-07-2018 None [facility] Start: 05-07-2018 Alone [facility] Start: 05-01-2021 Non-smoker [facility] Start: 1970 Sex Assigned At Female W [facility] Start: 04-18-2018 End: 11-26-2024 Tobacco smoking status SDIS Never smoked tobacco [facility] Start: 04-18-2018 End: 07-08-2022 Tobacco use and exposure Smokeless tobacco non-user [facility] Start: 09-29-2021 End: 03-26-2024 Alcohol intake Current drinker of alcohol (finding) [facility] Start: 09-29-2021 End: 03-26-[address] [facility] Start: 1970 Sex Assigned At Not on file [facility] Start: 01-10-2023 End: 03-26-2024 Tobacco use panel [facility] Start: 04-17-2018 Gender identity Identifies as female gender (finding) [facility] Start: 03-21-2024 Sexual orientation Heterosexual (fin leanne) [facility] Start: 07-23-2024 Sex Female (finding) [facility] NEGATED: Highlighted row [facility] Medical Equipment Procedure Code Equipment Code Equipment [...] Facility 04-19-2023 Functional status Ambulates;Bathroom Priv ilege [facility] Work Phone: Mental Status Date Assessment Result Facility 04-19-2023 Cognitive function Voice/Name [facility] Work Phone: 01-26-2023 Cognitive function Touch/Shaking;Light Pa in [facility] Work Phone: 04-13-2022 Cognitive function Level Of Cons ciousness Awake;Alert;Appropriate;Follow s Commands [facility] Work Phone: 05-10-2021 Cognitive function Level Of Cons ciousness Awake;Alert;Appropriate;Follow s Commands [facility] Work Phone: Clinical Notes 12-19-2018 to 11-27-2024 Note Date & Type Note Facility 11-27-2024 Progress note [facility] 11-27-2024 Progress note Note Date/Time November 27, 2024 10:19am [facility] [address] [place] [address] [address] [place] [address] OFFICE VISIT Date of Service: 11/27/24 MR#: [id number] Acct: [id number] Name: AMALIA RICHARDSON Rep #: [id number] : 1970 Provider: Dr. 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 no cancers Supplemental Info [facility] Imaging Services [address] [place] [address] Shoulder min 2 Views MR#: [id number] Acct: [id number] Name: AMALIA RICHARDSON Rep #: [id number] : 1970 F 54 From: Alexia Bagley DO PCP: Dr. Kenzie Torrez, DO Status: REG CLI Study: Shoulder min 2 Views Date of Exam: 11/26/24 Exam# [id number] Ordering Dr: Zechariah Fajardo MD PROCEDURE: SHOULDER [...] involving the right acromioclavicular joint. Reading Location: [id number] I independently reviewed the imaging. Concur with [...] blood flow before exercises. 4. Anti-Inflammatory Medications: Wfwd-ern-kwrdrli medications like ibuprofen ornaproxen can help reduce [...] Cosigner Signature: Date (if applicable) CC: ~ [facility] Work Phone: 1(264) 178-709508-18-2025 Radiology Diagnostic study note [facility] Imaging Services [address] [place] [address] Shoulder min 2 Views MR#: [id number] Acct: [id number] Name: AMALIA RICHARDSON Rep #: [id number] : 1970 F 54 From: Abel Bagley DO PCP: Dr. Kenzie Torrez DO Status: REG CLI Study:Shoulder min 2 Views Date of Exam: 11/26/24 Exam# [id number] Ordering Dr: Zechariah Fajardo MD PROCEDURE: SHOULDER [...] involving the right acromioclavicular joint. Reading Location: [id number] CC: Dr. Kenzie Torrez DO; Dr. 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06-19-2025 Evaluation note* Diagnosis Onset Date Resolution Status Admit Date Vasomotor flushing acute September 092024 10:29am History of coronary artery stent placement December 19, 2018 chronic September 27, 2024 10:29am Hyperlipidemia chronic September 27, 2024 10:29am H/O coronary artery bypass surgery May 02, 2018 resolved September 27 10:29am Right shoulder pain acute Augus t 2024 9:21am [facility] Work Phone: 1(240) 766-782304-08-2025 Evaluation note* Diagnosis Onset Date Resolution Status Admit Date Climacteric acute July 17 2:33pm Encounter for routine gynecological examination noneactive July 17, 2024 2:33pm [facility] Work Phone: 1(134) 605-487804-08-2025 Evaluation note* Diagnosis Onset Date Resolution Status Admit Date Climacteric acute July 17 2:33pm Encounter for routine gynecological examination noneactive July 17, 2024 2:33pm Left breast lump acute July 192024 12:51pm [facility] Work Phone: 1(535) 371-836212-16-2024 History of Present illness Narrative* Michelle Corbin [...] months, sooner if needed Michelle Corbin MD [employer] psychologist Department of Rheumatology [place], [place] * Riya Mcginnis LPN - 03/26/2024 10:00 AM EST This nurse has verified patient name and . [facility] [facility]10-18-2023 Procedure [facility] 01-10-2023 History of Present illness Narrative* Zaynab [...] in clinical remission per GI ( Friend (Mccormick)). 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 Zaynab Eller MD Rheumatology [...] monitor on current treatment. Ayah Allen MD [employer] psychologist Department of Internal Medicine, Division of Rheumatology [place], [place] [facility] History of Present illness Narrative* Maisha Orozco RN - 07/08/2022 3:40 PM EDT Patient verified name and date of * Lela Leiva MD - 07/08/2022 3:40 PM EDT Encounter date: 07/08/2022 Service location: [facility] Chief Complaint: Chief Complaint Patient presents with Follow-up Patient permits daughter to accompany her to this visit and discuss her medical conditions. 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 Has been off of azathioprine (previously on this per her GI provider for ulcerative colitis) since 07/2021. Sees local clinical interviewer annually. 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 Denies new concerns at this time. Note: [...] 50 or greater -continue follow-up with local clinical interviewer -02/2021 hep b immune; 09/2021 hiv and [...] Leiva MD Instructor Division of Rheumatology [facility] Instructions* Patient Instructions* Lela Leiva MD - 07/08/2022 3:40 PM EDT Return to clinic in 6 months. (Please note: Dr. Leiva will no longer be at [facility] in the upcoming months) If Dr. Leiva is unavailable in the anticipated time frame of follow-up indicated above, please call [facility] Rhe[facility]ology [facility] ( ) to schedule an appointment with another available Crate Builder at this location. documented [facility] Instructions* Patient Instructions* Lela Leiva MD - 09/29/2021 9:03 AM EDT Please be advised: For your next visit, I anticipate you will be seeing a different rheumatology provider (along with Dr. Bashir), as I will no longer be in this clinic. As far as I am aware, they do not have schedules for the new rheumatology providers yet; please call [facility] Rheumatology [facility] ( ) at the end of 09/2021 to schedule your next appointment in 02/2022 with the new provider. After that time, please direct medication refill requests to your new provider. documented in [facility] History of Present illness Narrative* Lela [...] Dr. Friend (Rocky) in 07/2021. Sees local clinical interviewer annually. Denies new concerns at this time. [...] 50 or greater -continue follow-up with local clinical interviewer -obtain cbc, bun/cr, lfts, c3/c4, ds dna [...] status. The above was discussed with attending crosscutter rolled glass Patsy Bashir DO. Diagnoses/recommendationsmay be modified by the attending physician on attestation. Lela Leiva MD Rheumatology Fellow [facility] Patsy Infante saw, examined and discussed the [...] Medicine Division of Immunology/Rheumatology documented in [facility]09-[facility]-2019 Evaluation note * Diagnosis Onset Date Resolution Status Ulcerative colitis acute Folliculitis chronic Ulcerative colitis acute History of coronary artery stent placement December 102018 chronic Hyperlipidemia chronic H/O coronary artery bypass surgery May 02, [address] [facility] Work Phone: 1(162) 308-998809-10-2019 Evaluation note* Diagnosis Onset Date Resolution Status Ulcerative colitis acute History of coronary artery stent placement December 102018 chronic Hyperlipidemia chronic H/O coronary artery bypass surgery May 02, [address] [facility] Work Phone: 1(511) 445-664009-10-2019 Evaluation note* Diagnosis Onset Date Resolution Status History of coronary artery stent placement December 102018 chronic Hyperlipidemia chronic H/O coronary artery bypass surgery May 02, 2018 resolved Vasomotor flushing acute Encounter for routine gyneco logical examination noneactive Ulcerative colitis chronic [facility] Work Phone: Evaluation note* Diagnosis Subacute cutaneous lupus erythematosus- Primary Lupus erythematosus SS-A antibody positive Other and unspecified nonspecific immunological findings Therapeutic drug monitoring Encounter for therapeutic drug monitoring documented [facility] this encounter [facility] Work Phone: Evaluation note* Diagnosis Subacute cutaneous lupus erythematosus- Primary Lupus erythematosus SS-A antibody positive Other and unspecified nonspecific immunological findings Long-term use of hydroxychloroquine Therapeutic drug monitoring Encounter for therapeutic drug monitoring documented in this encounter [facility] Diagnosis Subacute cutaneous lupus erythematosus- Primary Lupus erythematosus SS-A antibody positive Other and unspecified nonspecific immunological findings Long-term use of hydroxychloroquine documented in this encounter [facility] Diagnosis Onset Date Resolution Status Encounter for routine gynecological examination noneactive [facility] Work Phone: Evaluation note* Diagnosis SS-A antibody positive- Primary Other and unspecified nonspecific immunological findings Subacute cutaneous lupus erythematosus Lupus erythematosus documented [facility] this encounter [facility] Author Lb Sands [facility] January 26, 2023 7:14am Note Date/Time January 26, 2023 7 :14am [facility] Medical Records Department [address] [place] [address] History & Physical Exam 01/26/23 0714 MR#: [id number] Acct: [id number] Name: AMALIA RICHARDSON Rep #:[id number] : 1970 53 From: Lb Sands DO PCP: Dr. Kenzie Torrez, DO Status:[facility] Location: [place] [address] History and Physical Date of Admission: 01/26/23 [...] She will be establishing with a new crosscutter rolled glass. 01/05/2021 colonoscopy: two 5 mm polyps in [...] and oriented x3 Quality Reporting Tobacco Screening ([facility] 138) Smoking Status: Never smoker Assessment and [...] Kenzie Torrez DO; Lb Sands DO~ Signed [facility] Work Phone: Reason for referral (narrative)* Consultation (Routine) - Patient to Arrange Specialty Diagnoses / Procedures Referred By Chad basilio Referred To Contact Rheumatology Diagnoses Subacute cutaneous lupus erythematosus Patsy Bashir DO [address] [place] [address] Referral ID Status Reason Start Date Expiration Date V isits Requested Visits Authorized [id number] Patient to Arrange 09/29/2021 10/24/2022 1 [facility]No reason for referral information availableWSelect [facility] Work Phone: Summary Purpose Family History Relationship [...] Will No May 10 3:36am Power of Choir Singer No May 10, 2021 3:36am Latest Code Status on File Code Status Date Activated Date Inactivated Comments Full Code 05/02/2018 11:14 AM Full Code 04/17/2018 10:57 PM 05/02/2018 11:14 AM Advance Directive Response Recorded Date/ Time Advance Directives No May 01, 2021 10:38am Living Will No April 13 12:13pm Power of Choir Singer No April 13, 023 12:13pm Latest Code Status on File Code Status Date Activated Date Inactivated Comments Full Code 05/02/2018 11:14 AM Code Status History Code Status Date Activated Date Inactivated Comments Full Code 04/17/2018 10:57 PM 05/02/2018 11:14 AM Advance Directive Response Recorded Date/ Time Advance Directives No May 01, 2021 11:38am Living Will No April 13 1:13pm Power of Choir Singer No April 13, 2 023 1:13pm Advance Directive Response Recorded Date/ Time Name of Medical Power of Choir Singer January 20, 2023 12:42pm Advance Directives No May 01, 2021 11:38am Living Will Yes January 20 12:42pm Power of Choir Singer Yes January 20, 2023 12:42pm Advance Directive Response Recorded Date/ Time Name of Medical Power of Choir Singer January 20, 2023 11:42am Name of Medical Power of Choir Singer March 22, 2023 10:50am Advance Directives No May 01, 2021 10:38am Living Will Yes March 22, 023 10:50am Power of Choir Singer Yes March 22, 2023 10:50am Advance Directive Response Recorded Date/ Time Name of Medical Power of Choir Singer March 22, 2023 11:50am Advance Directives No May 01, 2021 11:38am Living Will Yes March 22, 023 11:50am Power of Choir Singer Yes March 22, 2023 11:50am Date Activated [...] ELETRICAL SHOCK 6 m fu (pt req [facility]) 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 Reason for Visit History of coronary artery stent placement Hyperlipidemia H/O coronary artery bypass surgery Vasomotor flushing Encounter for routine gynecological examination Ulcerative colitis Chief Complaint [employer]EE [employer]S Chief Complaint [employer]EE [employer]S SCREENING Chief Complaint SCREENING ABN RT BREAST MAMM First metatarsal osteotomy bunionec SOB Chief Complaint First metatarsal ost eotomy bunionec SOB 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) Reason for Visit Encounter for routin e gynecological examination Chief Complaint Admit Date EARS CLOGGED/ PAIN March 28, 2024 6:32am 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) July 17, 2024 2:33 pm BREAST CONSULT July 19, 2024 12: 51pm Reason for Visit Admit Date Climacteric July 17, 2024 2:33 pm Encounter for routine gynecological exam ination July 17, 2024 2:33pm Chief Complaint Admit Date 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) July 17, 2024 2:33 pm BREAST CONSULT July 19, 2024 12: 51pm PER [facility] to discuss med options September 10:29am Reason for Visit Admit Date Climacteric July 17, 2024 2:33 pm Encounter for routine gynecological exam ination July 17, 2024 2:33pm Left breast lump July 19, 2024 12: 51pm Chief Complaint Admit Date PER [facility] to discuss med options September 10:29am 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 [...] section and content) DATE CREATED AUTHOR 05/15/2019 [facility] DATE CREATED AUTHOR AUTHOR'S ORGANIZ ATION 04/02/2024 [facility] DATE CREATED AUTHOR AUTHOR'S ORGANIZ ATION 12/01/2024 [facility] Goals (unrecognized section and content) Goals may [...] Care Teams (unrecognized sec tion and content) Industrial Relations Specialist Relationship Specialty Start Date End Date Kenzie Torrez DO [address] [place] [address] PCP - General Family Medicine 04/27/18 Kenzie Torrez DO [address] [place] [phone] Family Medicine 04/18/18 Bry Pelaez MD [address] [facility] [place] [address] Cardiovascular Medicine 04/18/18 Lucrecia Balbuena MD [address] [place] [address] Urologist Urology 02/25/20 Lela Leiva MD [address] [place], [place] [id number] Consulting Fellow Rheumatology 09/29/21 09/29/21 Team Status: Active Member Role Status Dates Dr. Kenzie Torrez DO Family Provider Active Dr. Kenzie Torrez DO Primary Care Provider Active Team Status: Inactive Member Role Status Dates Dr. Kenzie Torrez DO Primary Care Provider, Referring P rovider Active Fabiola Pryor SHOP HELPER, SHOP HELPER-C Attending Provider Active Team Status: Inactive Member [...] DO Primary Care Provider Active Jazzy Diaz SHOP HELPER, SHOP HELPER-C Attending Provider Active Team Status: Inactive Member Role Status Dates Dr. Kenzie Torrez DO Primary Care Provider Active Dr. Eladio Matta DO Attending Provider, Emergency Provider Active Team Status: Inactive Member Role Status Dates Dr. Kenzie Torrez DO Primary Care Provider Active Dr. Bry Pelaez MD Attending Provider Active Industrial Relations Specialist Relationship Specialty Start Date End Date ShanKenzie [address] [place] [phone] PCP - General Family Medicine 04/27/18 Kenzie Torrez DO [address] [place] [phone] Family Medicine 04/18/18 [place] [address] [place] [address], [place] [phone] Cardiovascular Disease 04/18/18 Lucrecia Balbuena MD [address] [place] [phone] Urologist Urology 02/25/20 Lela Leiva MD [address] [place] [address] Crate Builder Rheumatology 07/08/22 Team Status: Active Member Role Status Dates Dr. Kenzie Torrez DO Primary Care Provider Active Health Risk Assessment Attending Provider, Referring Radha bassett Active Team Status: Inactive Member Role Status Dates Dr. Knezie Torrez DO Primary Care Provider Active Dr. Lb Sands , Attending Provider, Referring Provider Active Industrial Relations Specialist Relationship Specialty Start Date End Date Kenzie Torrez DO [address] [place] [phone] PCP - General Family Medicine 04/27/18 Kenzie Torrez DO [address] [place] [phone] Family Medicine 04/18/18 Bry Pelaez MD [address] [place] [address] Cardiovascular Disease 04/18/18 Lucrecia Balbuena MD [address] [place] [address] Urologist Urology 02/25/20 Team Status: [...] Active Dana Crisostomo CNM Attending Provider Active Industrial Relations Specialist Relationship Specialty Start Date End Date Kenzie Torrez DO [address] [place] [address] PCP - General Family Medicine 04/27/18 Kenzie Torrez DO [address] [place] [address] Family Medicine 04/18/18 Bry Pelaez MD [address] [place] [address] Cardiovascular Disease 04/18/18 Lucrecia Balbuena MD [address] [place] [address] Urologist Urology 02/25/20 Team Status: [...] BE BASED ON THE PRIMARY CLINICAL RECORDS. [facility] [employer], [facility]. provides no warranty or guarantee of the accuracy or completeness of information in this document.
== END | disposition home or self-care (01) ==
LOC: OPMRI 07:08
PROVIDERS: PCP Family Medicine; Referring Provider Orthopaedic Surgery Sports Medicine; Visit Provider Orthopaedic Surgery Sports Medicine
DX: M25.511 Pain in right shoulder (principal)
CPT/HCPCS: 73221

== ENCOUNTER → 2024-12-17 | Outpatient (CLI) | payer OTHER, SELFPAY ==
--- NOTE | 2024-12-17 12:57 | BI_ITS ---
EXAM: DIAG MAMM W/CAD, BILAT N/A CLINICAL HISTORY: F, Age 54 y/o , LUMP. Enlarged right axillary lymph node. History of mother with breast cancer. Prior right breast aspiration. TECHNIQUE: Procedure Code: [id number] Modality: MG Procedure: DIAG MAMM W/CAD, BILAT. COMPARISON: Prior exam(s) dated February 01, 2024.. FINDINGS: TISSUE DENSITY: The breasts are extremely dense, which lowers the sensitivity of mammography. Bilateral Breast Mammographic Findings: Stable 2.5 cm well-defined nodule in the upper-outer quadrant of the right breast. Adjacent to this, there is evidence of a 1 point 7 cm x 1.5 cm well-defined nodule. Sonographic correlation recommended. There is evidence of bilateral axillary lymph nodes. BI/DIAG MAMM W/CAD, BILAT IMPRESSION: Essentially stable examination. Sonogram of the right axilla as well as the ri ght breast recommended for further evaluation. OVERALL FINAL ASSESSMENT BI-RADS 0: INCOMPLETE - NEED ADDITIONAL IMAGING EVALUATION. RECOMMENDATION: Ultrasound Recommended A letter with findings and recommendations will be mailed to the patient. Reading Location: [id number]
--- NOTE | 2024-12-17 12:57 | US_ITS ---
PROCEDURE: BREAST LIMITED UNILATERAL 12/17/2024 REASON FOR EXAM: F, Age 54 y/o , ENLARGED AXILLARY COMPARISON: Prior mammogram done earlier in the day.. TECHNIQUE: Procedure Code: USBRSTLIMIT Modality: US Procedure: BREAST LIMITED UNILATERAL FINDINGS: There are several right axillary lymph nodes. There is a 1.9 cm 0.7 cm x 0.5 cm lymph node. A central fatty hilum is seen. There is also evidence of a 1.3 cm 0.9 cm x 0.4 cm benign-appearing lymph node as well as a 1.5 cm x 0.7 cm 0.4 cm benign-appearing lymph node. US/Breast Limited Unilateral IMPRESSION: There is evidence of 3 right axillary lymph nodes. The appear to be benign. BI-RADS 2: BENIGN RECOMMENDATION: Routine annual follow-up in 1 Year Reading Location: [id number]
== END | disposition home or self-care (01) ==
LOC: OPBI 12:56
PROVIDERS: PCP Family Medicine; Referring Provider Orthopaedic Surgery Sports Medicine; Visit Provider Orthopaedic Surgery Sports Medicine
DX: N63.11 Unspecified lump in the right breast, upper outer quadrant (principal); Z80.3 Family history of malignant neoplasm of breast
CPT/HCPCS: 76642; 77062; 77066; G0279

== ENCOUNTER → 2025-01-02 | Outpatient (CLI) | payer OTHER, SELFPAY ==
--- NOTE | 2025-01-02 09:52 | MRI_ITS ---
PROCEDURE: BREAST BILATERAL W/O AND W 01/02/2025 REASON FOR EXAM: RIGHT AXILLARY LYMPHADENOPATHY, FAMILY HX TECHNIQUE: Procedure Code: [id number] Modality: MR Procedure: BREAST BILATERAL W/O AND W CONTRAST: 12 mL of IV Clariscan COMPARISON: Ultrasound 12/17/2024, mammogram 12/17/2024 FINDINGS: TISSUE DENSITY: The breasts are heterogeneously dense, which may obscure small masses. Background Parenchymal Enhancement: Minimal There are multiple scattered bilateral T2 hyperintense non-enhancing lesions, consistent with cysts. RIGHT Breast: No suspicious mass or non-mass enhancement. LEFT Breast: No suspicious mass or non-mass enhancement. Other Findings: No suspicious axillary or internal mammary lymph nodes. Visualized portions of the thoracic and abdominal viscera are unremarkable. MRI/Breast Bilateral W/O and W IMPRESSION: There is no MR evidence of malignancy. OVERALL FINAL ASSESSMENT BI-RADS 2: BENIGN RECOMMENDATION: Routine annual follow-up in 1 Year Reading Location: [id number]
== END | disposition home or self-care (01) ==
PROVIDERS: PCP Family Medicine; Referring Provider Surgery; Visit Provider Surgery
DX: R59.0 Localized enlarged lymph nodes (principal); R92.30 Dense breasts, unspecified; Z80.3 Family history of malignant neoplasm of breast
CPT/HCPCS: 77049; A9581; C8908